=== PATIENT | male | born 1945 | race Caucasian/White ===

== ENCOUNTER → 2019-04-10 00:01 | Outpatient (RCR) | payer OTHER, SELFPAY | LOC: WOUND 03-12 07:55 | PROVIDERS: Family Provider Internal Medicine; Visit Provider Thoracic Surgery (Cardiothoracic Vascular Surgery) | DX: E11.621 Type 2 diabetes mellitus with foot ulcer (principal); L97.522 Non-pressure chronic ulcer of other part of left foot with fat layer exposed; I96 Gangrene, not elsewhere classified | CPT/HCPCS: 11042 ×4; G0277 ×12; L3260 ==

== ENCOUNTER 2019-05-08 08:03 | Outpatient (RCR) | payer OTHER, SELFPAY | END 2019-05-11 23:59 | disposition home or self-care (01) | LOC: WOUND 08:03 | PROVIDERS: Family Provider Internal Medicine; PCP Internal Medicine; Visit Provider Thoracic Surgery (Cardiothoracic Vascular Surgery) | DX: E11.621 Type 2 diabetes mellitus with foot ulcer (principal); L97.522 Non-pressure chronic ulcer of other part of left foot with fat layer exposed; I96 Gangrene, not elsewhere classified | CPT/HCPCS: 11042 ==

== ENCOUNTER 2019-06-05 08:20 | Outpatient (RCR) | payer OTHER, SELFPAY | END 2019-06-09 23:59 | disposition home or self-care (01) | LOC: WOUND 08:20 | PROVIDERS: Family Provider Internal Medicine; PCP Internal Medicine; Visit Provider Thoracic Surgery (Cardiothoracic Vascular Surgery) | DX: E11.621 Type 2 diabetes mellitus with foot ulcer (principal); L97.522 Non-pressure chronic ulcer of other part of left foot with fat layer exposed | CPT/HCPCS: 11042; G0463; L3260 ==

== ENCOUNTER 2019-07-10 08:39 | Outpatient (RCR) | payer OTHER, SELFPAY | END 2019-07-10 23:59 | disposition home or self-care (01) | LOC: WOUND 08:39 | PROVIDERS: Family Provider Internal Medicine; PCP Internal Medicine; Visit Provider Thoracic Surgery (Cardiothoracic Vascular Surgery) | DX: E11.621 Type 2 diabetes mellitus with foot ulcer (principal); L97.522 Non-pressure chronic ulcer of other part of left foot with fat layer exposed | CPT/HCPCS: 11042; 11055; 97597; A6446; L3260; L4387 ==

== ENCOUNTER 2019-07-31 08:26 | Outpatient (RCR) | payer OTHER, SELFPAY | END 2019-08-09 23:59 | disposition home or self-care (01) | LOC: WOUND 08:26 | PROVIDERS: Family Provider Internal Medicine; PCP Internal Medicine; Visit Provider Thoracic Surgery (Cardiothoracic Vascular Surgery) | DX: E11.621 Type 2 diabetes mellitus with foot ulcer (principal); L97.522 Non-pressure chronic ulcer of other part of left foot with fat layer exposed | CPT/HCPCS: 99212 ==

== ENCOUNTER 2019-08-14 08:38 | Outpatient (CLI) | payer OTHER, SELFPAY | END 2019-08-14 08:39 | disposition home or self-care (01) | LOC: WOUND 08:38 | PROVIDERS: Family Provider Internal Medicine; PCP Internal Medicine; Visit Provider Thoracic Surgery (Cardiothoracic Vascular Surgery) | DX: Z09 Encounter for follow-up examination after completed treatment for conditions other than malignant neoplasm (principal) | CPT/HCPCS: 99212 ==

== ENCOUNTER 2019-08-29 07:55 | Outpatient (CLI) | payer OTHER, SELFPAY | END 2019-08-29 07:56 | disposition home or self-care (01) | LOC: WOUND 07:55 | PROVIDERS: Family Provider Internal Medicine; PCP Internal Medicine; Visit Provider Thoracic Surgery (Cardiothoracic Vascular Surgery) | DX: E11.622 Type 2 diabetes mellitus with other skin ulcer (principal); L97.822 Non-pressure chronic ulcer of other part of left lower leg with fat layer exposed | CPT/HCPCS: 11042; 11045 ==

== ENCOUNTER 2019-09-05 08:25 | Outpatient (CLI) | payer OTHER, SELFPAY | END 2019-09-05 08:26 | disposition home or self-care (01) | LOC: WOUND 08:26 | PROVIDERS: Family Provider Internal Medicine; PCP Internal Medicine; Visit Provider Surgery | DX: E11.622 Type 2 diabetes mellitus with other skin ulcer (principal); L97.822 Non-pressure chronic ulcer of other part of left lower leg with fat layer exposed | CPT/HCPCS: 11042 ==

== ENCOUNTER 2019-09-06 07:47 | Outpatient (CLI) | payer OTHER, SELFPAY ==
--- NOTE | 2019-09-06 07:59 | CT_ITS ---
WS: [id number] CTA ABDOMINAL AORTA WITH RUNOFF TECHNIQUE: Contrast enhanced CTA of the abdominal aorta with bilateral lower extremity runoff. Multip lanar reformatted images were obtained. MIP reformats were also reviewed. CLINICAL INFORMATION: PERIPHERAL ARETERIAL DISEASE NON HEALING ULCER COMPARISON: CTA 10/13 2018 DLP: 1730.[address] scans at [facility] use at least one of these dose optimization techniques: automat ed exposure control; mA and/or kV adjustment per patient size (includes targeted exams where dose is matched to clinical indication); or iterative reconstruction. FINDINGS: RIGHT: Right common iliac artery is patent. Right internal and external iliac arteries are patent wit h mild atheromatous disease. Right common femoral artery and superficial femoral artery are patent. D eep femoral artery is patent. Trifurcation is patent. Calcified three-vessel segmental runoff to the ankle. LEFT: Left common iliac artery is patent. External and internal iliac arteries are patent. Common fem oral and superficial femoral arteries are patent. Deep femoral artery is patent. Popliteal artery is patent to the trifurcation. Densely calcified diminutive lower leg runoff with poor flow to the ankle . This is essentially unchanged in appearance since October 13, 2018. Hepatomegaly with Mild diffuse fatty infiltration the liver. Low-attenuation lesion left kidney likel y cysts the largest measuring 2.8 cm. Celiac and SMA are patent. DASH is patent. Renal artery origins are patent with accessory right renal artery. Cholelithiasis. Grade 1 anterolisthesis with spondyloly sis L5-S1. Sigmoid diverticulosis. No evidence of acute diverticulitis. Mild aortic atheromatous dise ase. No aneurysm. Cardiomegaly with right atrial enlargement. Coronary calcification. Small esophageal hiatal hernia. L annel bases are well aerated. Adrenal glands are normal. Screw fixation left hip. Shotty periotic lymph nodes unchanged. CT/CT angio abd aorta runof 41650 IMPRESSION: 1. Heavily calcified diminutive lower leg arteries with poor intermittent thre e-vessel runoff to the ankles. This is worse on the left and not significantly changed since 2018. 2. Mild aortic atheromatous disease without aneurysm. 3. Mesenteric and proximal renal arteries are patent. 4. Cholelithiasis. 5. Stable grade 1 anterolisthesis L5 on S1 with spondylolysis.
[2019-09-06 08:23] LABS: Blood Urea Nitrogen 20 mg/dL (8-23)
[2019-09-06] MEDS: iodixanol 320 mg/mL 100mL Btl IV (08:41)
== END 2019-09-06 07:48 | disposition home or self-care (01) ==
LOC: RADWPI 07:49
PROVIDERS: Family Provider Internal Medicine; PCP Internal Medicine; Visit Provider Thoracic Surgery (Cardiothoracic Vascular Surgery)
DX: I73.9 Peripheral vascular disease, unspecified (principal); L98.499 Non-pressure chronic ulcer of skin of other sites with unspecified severity; I70.0 Atherosclerosis of aorta; K80.20 Calculus of gallbladder without cholecystitis without obstruction; M47.817 Spondylosis without myelopathy or radiculopathy, lumbosacral region
CPT/HCPCS: 75635; 82565; 84520; Q9967

== ENCOUNTER 2019-09-07 09:20 | Outpatient (CLI) | payer OTHER, SELFPAY ==
--- NOTE | 2019-09-07 | USCV_ITS ---
Refugio Amanda Age: 73 Gender: M : 1945 Exam Date: 09/07/2019 09:42 Ordering Phys: Brennon Martinez MD (Andy) ([email or web address]) Technologist: Arleth Bloes [place] [facility] [place]: HISTORY: NON HEALING ULCER PROCEDURES: Bilateral duplex Venous Insufficiency study of the Deep and Superficial systems was carried out according to normal protocol with the patient in supine positon for deep system and dependent position for the superficial system. FINDINGS: There is no evidence of bilateral deep vein thrombosis. No evidence of superficial thrombosis in the bilateral saphenous system. No evidence of reflux was noted in the RIGHT deep venous system. Reflux is demonstrated in the deep venous system at the level of the LEFT Popliteal. Venous reflux is demonstrated in the RIGHT greater saphenous vein with a spectral Doppler display of greater than 500 milliseconds at the proximal level. Venous reflux was demonstrated in the RIGHT SPJ/thigh extension vein with a spectral display of greater than 500 milliseconds. Venous reflux is demonstrated in the LEFT greater saphenous vein with a spectral Doppler display of greater than 500 milliseconds at the proximal level. No venous reflux noted in the bilateral small saphenous vein. CONCLUSIONS 1. No evidence of any deep vein thrombosis in the above-mentioned identifiable veins. 2. On the right side, no significant venous reflux in the deep veins. There is significant venous reflux of greater than 500 ms in the greater saphenous vein, distal to the saphenofemoral junction and at the proximal segment. The proximal segment was greater than 1 cm deep from the surface. 3. On the left side, significant venous reflux of greater than 1000 ms was noted in the popliteal vein. Significant venous reflux of greater than 500 ms was noted at the proximal, distal and below-knee greater saphenous vein segments. The venous segments were greater than 1 cm deep from the surface. 4. The venous dimensions, depth from the surface and reflux times are as mentioned above. Dr Luc Roque MD [facility] (Electronically Signed) Final Date: 07 Sep 2019 11:49 S
== END 2019-09-07 09:21 | disposition home or self-care (01) ==
LOC: RAD 09:22
PROVIDERS: Visit Provider Thoracic Surgery (Cardiothoracic Vascular Surgery)
DX: M79.604 Pain in right leg (principal); M79.605 Pain in left leg; L97.929 Non-pressure chronic ulcer of unspecified part of left lower leg with unspecified severity; L97.919 Non-pressure chronic ulcer of unspecified part of right lower leg with unspecified severity
CPT/HCPCS: 93970

== ENCOUNTER 2019-09-12 08:11 | Outpatient (CLI) | payer OTHER, SELFPAY | END 2019-09-12 08:12 | disposition home or self-care (01) | LOC: WOUND 08:12 | PROVIDERS: Visit Provider Thoracic Surgery (Cardiothoracic Vascular Surgery) | DX: E11.622 Type 2 diabetes mellitus with other skin ulcer (principal); L97.822 Non-pressure chronic ulcer of other part of left lower leg with fat layer exposed; E11.621 Type 2 diabetes mellitus with foot ulcer; L97.422 Non-pressure chronic ulcer of left heel and midfoot with fat layer exposed | CPT/HCPCS: 11042; 11043 ==

== ENCOUNTER 2019-09-19 08:15 | Outpatient (CLI) | payer OTHER, SELFPAY | END 2019-09-19 08:16 | disposition home or self-care (01) | LOC: WOUND 08:16 | PROVIDERS: Visit Provider Thoracic Surgery (Cardiothoracic Vascular Surgery) | DX: E11.622 Type 2 diabetes mellitus with other skin ulcer (principal); L97.822 Non-pressure chronic ulcer of other part of left lower leg with fat layer exposed; E11.621 Type 2 diabetes mellitus with foot ulcer; L97.522 Non-pressure chronic ulcer of other part of left foot with fat layer exposed | CPT/HCPCS: 11042 ==

== ENCOUNTER → 2019-09-24 11:32 | Day surgery (SDC) | payer OTHER, SELFPAY ==
[2019-09-21 11:15] VITALS: BMI 35.1
[2019-09-24 12:07] VITALS: BP 135/77; PULSE 53; RESP 15; TEMP 36.7; O2SAT 95; BMI 35.1
[2019-09-24] MEDS: diazePAM 5 mg Tablet 10 MG PO (13:00)
[2019-09-24 14:16] VITALS: BP 125/66; PULSE 44; RESP 14; TEMP 37; O2SAT 97
[2019-09-24] MEDS: lidocaine 1% INJ 20 mL INTRADERMA (14:20)
[2019-09-24] MEDS: sodium chloride 0.9% 250 ML IV (14:21)
--- NOTE | 2019-09-24 14:54 | P.OP_ITS ---
Operative Report Date of procedure: September 24, 2019 Pre-op Diagnosis: Chronic venous ulcer left lower extremity with documented severe reflux of the left greater saphenous vein Post-op diagnosis: same Procedure Done: Radiofrequency catheter ablation of the left greater saphenous vein Pathology: none sent Surgeon: Brennon Martinez Anesthesia: Local (1% lidocaine; lidocaine tumescence) Complications: None Condition: stable Disposition: other (Discharge to home) Brief History: Mr. Amanda is a 73-year-old gentleman followed by [facility] [place] with an ulceration of his left lower extremity. He is not have a combination of arterial and venous disease and is undergone prior interventions to maximize his arterial inflow. He does have documented severe venous reflux of greater than 500 ms of the left greater saphenous vein. Catheter ablation of the left greater saphenous vein has been recommended to assist with other maneuvers in healing his left lower extremity wound. Rationale for this was carefully and frankly discussed. Details of risk the procedure have been reviewed. Proper consents have been reviewed and signed. Procedure: The insufficient left greater saphenous vein was verified by ultrasound and diagrammed on the overlying skin. The varicose tributary veins and suitable access sites were identified and mapped. The affected left lower extremity was prepped and draped in the usual sterile fashion. Mr. Amanda was placed in reverse Trendelenburg position. Tumescent was instilled in the skin overlying the access site for local anesthesia. The vein was accessed in the mid leg region using ultrasound guidance and the Seldinger technique, a guidewire was introduced through the needle, which was then exchanged over the guidewire for a 7F sheath. The RF catheter was placed on the sterile field, flushed and wiped down, prepared, and connected by a sterile cable. He was placed in Trendelenburg position. After RF catheter position was verified by ultrasound, tumescent anesthesia was infiltrated, under ultrasound guidance, precisely into the perivenous compartment along the entire length of vein. After the RF catheter position was again confirmed with ultrasound imaging, and under direct external compression along the length of the heating element, RF energy was applied. The vein was segmentally ablated until the treatment length is completed. Device temperature was maintained at 120 +/- degrees C with an initial power level of 40W dropping to below 20W for each treatment. Total vein length treated 46 cm. Total cycles of RF 16. Time 5 minutes and 20 seconds. Repeat ultrasound of the left greater saphenous vein was performed, confirming successful treatment. The catheter and sheath were withdrawn and hemostasis es tablished with direct pressure. After assuring hemostasis, the skin incision over the saphenous vein was closed with a bandage and graduated compression stocking was applied from the level of the foot to the most proximal length of the thigh. Mr. Amanda will follow-up with wound care services in 2 days. Follow-up post procedure ultrasound is scheduled for September 30 at 12:30 PM
--- NOTE | 2019-09-25 15:36 | W.PM.OPSUD ---
Surgery/Procedure H&P Update DATE OF PROCEDURE: September 24, 2019 DATE H&P PERFORMED: 09/12/19 H&P UPDATE INFORMATION: I have reviewed H&P completed within last 30 days, I have examined patient prior to procedure and No changes to prior documentation PREOP DIAGNOSIS: Chronic venous ulcer left lower extremity with documented severe reflux of the left greater saphenous vein PRIMARY INDICATION FOR PROCEDURE: Left lower extremity venous ulceration PLANNED PROCEDURE: Operation Date: 09/24/19 13:22 Proposed Procedures p Venous Ablations(Not Applicable) - rBennon Martinez MD
== END | disposition home or self-care (01) ==
PROVIDERS: Visit Provider Thoracic Surgery (Cardiothoracic Vascular Surgery)
PROC: (CPT 36475; principal; 2019-09-24 12:30)
DX: I87.2 Venous insufficiency (chronic) (peripheral) (principal); I48.91 Unspecified atrial fibrillation; I11.0 Hypertensive heart disease with heart failure; I50.9 Heart failure, unspecified; E11.9 Type 2 diabetes mellitus without complications; Z79.84 Long term (current) use of oral hypoglycemic drugs; G47.30 Sleep apnea, unspecified
CPT/HCPCS: 36475; 12345; C1769; C1888; C1894; J2001; J7040; J7050

== ENCOUNTER 2019-09-26 08:08 | Outpatient (CLI) | payer OTHER, SELFPAY | END 2019-09-26 08:09 | disposition home or self-care (01) | LOC: WOUND 08:11 | PROVIDERS: Visit Provider Thoracic Surgery (Cardiothoracic Vascular Surgery) | DX: I87.2 Venous insufficiency (chronic) (peripheral) (principal); L97.822 Non-pressure chronic ulcer of other part of left lower leg with fat layer exposed; E11.621 Type 2 diabetes mellitus with foot ulcer; L97.522 Non-pressure chronic ulcer of other part of left foot with fat layer exposed | CPT/HCPCS: 11042; 11045 ==

== ENCOUNTER 2019-09-28 14:57 | Outpatient (CLI) | payer OTHER, SELFPAY | END 2019-09-28 14:58 | disposition home or self-care (01) | LOC: WOUND 14:59 | PROVIDERS: Visit Provider Surgery | DX: Z51.89 Encounter for other specified aftercare (principal) | CPT/HCPCS: 29581 ==

== ENCOUNTER 2019-10-01 12:13 | Outpatient (CLI) | payer OTHER, SELFPAY ==
--- NOTE | 2019-10-01 12:20 | USCV_ITS ---
Refugio Amanda Age: 73 Gender: M : 1945 Exam Date: 10/01/2019 13:02 Ordering Phys: Brennon Martinez MD (Andy) ([email or web address]) Technologist: Radha Álvarez [place] [facility] [place]: POST ABLATION HISTORY: Post ablation PROCEDURES: Venous duplex imaging was performed in only the left lower extremity. The following venous structures were evaluated: common femoral vein, profunda vein, proximal portion of the greater saphenous vein, superficial femoral vein, and the popliteal vein. In addition, the posterior tibial and peroneal trunk were evaluated. FINDINGS: No evidence of DVT seen in any vessel visualized at this time. Left GSV appears to be ablated CONCLUSIONS No evidence of DVT in the above-mentioned identifiable veins. Patent saphenofemoral junction . The greater saphenous vein appears to be ablated Dr Luc Roque MD [facility] (Electronically Signed) Final Date: 02 October 2019 09:26 S
== END 2019-10-01 12:14 | disposition home or self-care (01) ==
LOC: US 12:14
PROVIDERS: Visit Provider Thoracic Surgery (Cardiothoracic Vascular Surgery)
DX: M79.89 Other specified soft tissue disorders (principal)
CPT/HCPCS: 93971

== ENCOUNTER 2019-10-01 14:48 | Outpatient (CLI) | payer OTHER, SELFPAY | END 2019-10-01 14:49 | disposition home or self-care (01) | LOC: WOUND 15:00 | PROVIDERS: Visit Provider Nurse Practitioner Family | DX: Z51.89 Encounter for other specified aftercare (principal) | CPT/HCPCS: 29581 ==

== ENCOUNTER 2019-10-03 08:11 | Outpatient (CLI) | payer OTHER, SELFPAY | END 2019-10-03 08:12 | disposition home or self-care (01) | LOC: WOUND 08:12 | PROVIDERS: Visit Provider Thoracic Surgery (Cardiothoracic Vascular Surgery) | DX: I87.2 Venous insufficiency (chronic) (peripheral) (principal); L97.822 Non-pressure chronic ulcer of other part of left lower leg with fat layer exposed; E11.621 Type 2 diabetes mellitus with foot ulcer; L97.522 Non-pressure chronic ulcer of other part of left foot with fat layer exposed | CPT/HCPCS: 11042; 11045; L3260 ==

== ENCOUNTER 2019-10-05 15:09 | Outpatient (CLI) | payer OTHER, SELFPAY | END 2019-10-05 15:10 | disposition home or self-care (01) | LOC: WOUND 15:11 | PROVIDERS: Visit Provider Surgery | DX: E11.622 Type 2 diabetes mellitus with other skin ulcer (principal); L97.822 Non-pressure chronic ulcer of other part of left lower leg with fat layer exposed; E11.621 Type 2 diabetes mellitus with foot ulcer; L97.429 Non-pressure chronic ulcer of left heel and midfoot with unspecified severity | CPT/HCPCS: 29581 ==

== ENCOUNTER 2019-10-08 08:00 | Outpatient (CLI) | payer OTHER, SELFPAY | END 2019-10-08 08:01 | disposition home or self-care (01) | LOC: WOUND 08:01 | PROVIDERS: Visit Provider Nurse Practitioner Family | DX: E11.622 Type 2 diabetes mellitus with other skin ulcer (principal); L97.822 Non-pressure chronic ulcer of other part of left lower leg with fat layer exposed; E11.621 Type 2 diabetes mellitus with foot ulcer; L97.429 Non-pressure chronic ulcer of left heel and midfoot with unspecified severity | CPT/HCPCS: 29581; G0463 ==

== ENCOUNTER 2019-10-10 08:41 | Outpatient (CLI) | payer OTHER, SELFPAY | END 2019-10-10 08:42 | disposition home or self-care (01) | LOC: WOUND 08:42 | PROVIDERS: Visit Provider Thoracic Surgery (Cardiothoracic Vascular Surgery) | DX: L97.822 Non-pressure chronic ulcer of other part of left lower leg with fat layer exposed; E11.621 Type 2 diabetes mellitus with foot ulcer; L97.429 Non-pressure chronic ulcer of left heel and midfoot with unspecified severity; E11.622 Type 2 diabetes mellitus with other skin ulcer | CPT/HCPCS: 11042; 11045 ==

== ENCOUNTER 2019-10-15 08:25 | Outpatient (CLI) | payer OTHER, SELFPAY | END 2019-10-15 08:26 | disposition home or self-care (01) | LOC: WOUND 08:26 | PROVIDERS: Visit Provider Surgery | DX: Z51.89 Encounter for other specified aftercare (principal) | CPT/HCPCS: 29581 ==

== ENCOUNTER 2019-10-17 08:26 | Outpatient (CLI) | payer OTHER, SELFPAY | END 2019-10-17 08:27 | disposition home or self-care (01) | LOC: WOUND 08:26 | PROVIDERS: Visit Provider Thoracic Surgery (Cardiothoracic Vascular Surgery) | DX: E11.622 Type 2 diabetes mellitus with other skin ulcer (principal); L97.822 Non-pressure chronic ulcer of other part of left lower leg with fat layer exposed; E11.621 Type 2 diabetes mellitus with foot ulcer; L97.422 Non-pressure chronic ulcer of left heel and midfoot with fat layer exposed | CPT/HCPCS: 11042; 11045 ==

== ENCOUNTER 2019-10-23 09:10 | Outpatient (CLI) | payer OTHER, SELFPAY | END 2019-10-23 09:11 | disposition home or self-care (01) | LOC: WOUND 09:11 | PROVIDERS: Visit Provider Thoracic Surgery (Cardiothoracic Vascular Surgery) | DX: E11.622 Type 2 diabetes mellitus with other skin ulcer (principal); L97.822 Non-pressure chronic ulcer of other part of left lower leg with fat layer exposed; E11.621 Type 2 diabetes mellitus with foot ulcer; L97.422 Non-pressure chronic ulcer of left heel and midfoot with fat layer exposed | CPT/HCPCS: 11042 ==

== ENCOUNTER 2019-10-30 09:18 | Outpatient (CLI) | payer OTHER, SELFPAY | END 2019-10-30 09:19 | disposition home or self-care (01) | LOC: WOUND 09:19 | PROVIDERS: Visit Provider Thoracic Surgery (Cardiothoracic Vascular Surgery) | DX: E11.622 Type 2 diabetes mellitus with other skin ulcer (principal); L97.522 Non-pressure chronic ulcer of other part of left foot with fat layer exposed; E11.621 Type 2 diabetes mellitus with foot ulcer; L97.422 Non-pressure chronic ulcer of left heel and midfoot with fat layer exposed | CPT/HCPCS: 11042 ==

== ENCOUNTER 2019-11-06 09:05 | Outpatient (CLI) | payer OTHER, SELFPAY | END 2019-11-06 09:06 | disposition home or self-care (01) | LOC: WOUND 09:09 | PROVIDERS: Visit Provider Thoracic Surgery (Cardiothoracic Vascular Surgery) | DX: E11.622 Type 2 diabetes mellitus with other skin ulcer (principal); L97.822 Non-pressure chronic ulcer of other part of left lower leg with fat layer exposed; E11.621 Type 2 diabetes mellitus with foot ulcer; L97.422 Non-pressure chronic ulcer of left heel and midfoot with fat layer exposed | CPT/HCPCS: 11042 ==

== ENCOUNTER → 2019-11-08 08:46 | Outpatient (BNVA) | payer OTHER, SELFPAY | PROVIDERS: Referring Provider Family Medicine; Visit Provider Anesthesiology Pain Medicine | DX: M25.511 Pain in right shoulder (principal); M19.021 Primary osteoarthritis, right elbow; M25.551 Pain in right hip; M79.605 Pain in left leg; G62.9 Polyneuropathy, unspecified; M25.9 Joint disorder, unspecified; I48.20 Chronic atrial fibrillation, unspecified; I87.2 Venous insufficiency (chronic) (peripheral); M19.90 Unspecified osteoarthritis, unspecified site; Z79.891 Long term (current) use of opiate analgesic | CPT/HCPCS: 99204 ==

== ENCOUNTER → 2019-11-12 14:52 | Outpatient (BNVA) | payer OTHER, SELFPAY | PROVIDERS: PCP Family Medicine; Visit Provider Anesthesiology Pain Medicine | DX: M25.551 Pain in right hip (principal); M16.9 Osteoarthritis of hip, unspecified | CPT/HCPCS: 20610; 77002; 77003; J1030; J3490 ==

== ENCOUNTER 2019-11-13 08:59 | Outpatient (CLI) | payer OTHER, SELFPAY | END 2019-11-13 09:00 | disposition home or self-care (01) | LOC: WOUND 09:05 | PROVIDERS: PCP Family Medicine; Visit Provider Thoracic Surgery (Cardiothoracic Vascular Surgery) | DX: E11.622 Type 2 diabetes mellitus with other skin ulcer (principal); L97.822 Non-pressure chronic ulcer of other part of left lower leg with fat layer exposed; E11.621 Type 2 diabetes mellitus with foot ulcer; L97.422 Non-pressure chronic ulcer of left heel and midfoot with fat layer exposed | CPT/HCPCS: 11042 ==

== ENCOUNTER 2019-11-20 09:25 | Outpatient (CLI) | payer OTHER, SELFPAY | END 2019-11-20 09:26 | disposition home or self-care (01) | LOC: WOUND 09:26 | PROVIDERS: PCP Family Medicine; Visit Provider Emergency Medicine | DX: E11.622 Type 2 diabetes mellitus with other skin ulcer (principal); L97.822 Non-pressure chronic ulcer of other part of left lower leg with fat layer exposed; E11.621 Type 2 diabetes mellitus with foot ulcer; L97.521 Non-pressure chronic ulcer of other part of left foot limited to breakdown of skin | CPT/HCPCS: 11042 ==

== ENCOUNTER → 2019-11-29 09:32 | Outpatient (BNVA) | payer OTHER, SELFPAY | PROVIDERS: PCP Family Medicine; Visit Provider Anesthesiology Pain Medicine | DX: M25.9 Joint disorder, unspecified (principal); M19.90 Unspecified osteoarthritis, unspecified site; M19.021 Primary osteoarthritis, right elbow; M25.551 Pain in right hip; M25.511 Pain in right shoulder; M79.605 Pain in left leg; G62.9 Polyneuropathy, unspecified; I48.20 Chronic atrial fibrillation, unspecified; I87.2 Venous insufficiency (chronic) (peripheral); Z79.891 Long term (current) use of opiate analgesic | CPT/HCPCS: 99214 ==

== ENCOUNTER 2019-12-04 09:13 | Outpatient (CLI) | payer OTHER, SELFPAY | END 2019-12-04 09:14 | disposition home or self-care (01) | LOC: WOUND 09:15 | PROVIDERS: PCP Family Medicine; Visit Provider Thoracic Surgery (Cardiothoracic Vascular Surgery) | DX: Z09 Encounter for follow-up examination after completed treatment for conditions other than malignant neoplasm (principal) | CPT/HCPCS: 99212 ==

== ENCOUNTER → 2019-12-05 13:36 | Outpatient (BNVA) | payer OTHER, SELFPAY | PROVIDERS: PCP Family Medicine; Visit Provider Anesthesiology Pain Medicine | DX: M70.71 Other bursitis of hip, right hip (principal); Y93.9 Activity, unspecified | CPT/HCPCS: 20610; 77002; 77003; J1030; J3490 ==

== ENCOUNTER 2019-12-11 08:59 | Outpatient (CLI) | payer OTHER, SELFPAY | END 2019-12-11 09:00 | disposition home or self-care (01) | LOC: WOUND 09:00 | PROVIDERS: PCP Family Medicine; Visit Provider Thoracic Surgery (Cardiothoracic Vascular Surgery) | DX: E11.621 Type 2 diabetes mellitus with foot ulcer (principal); L97.522 Non-pressure chronic ulcer of other part of left foot with fat layer exposed | CPT/HCPCS: 11042; A6545 ==

== ENCOUNTER 2019-12-14 13:01 | Outpatient (CLI) | payer OTHER, SELFPAY ==
--- NOTE | 2019-12-14 13:06 | XR_ITS ---
WS: [id number] TOE LEFT TECHNIQUE: 3 views of the left First toe CLINICAL INFORMATION: PAIN REDNESS NONHEALING ULCER, R/O OSTEOMYELITIS COMPARISON: FINDINGS: Soft tissue edema first digit. Vascular calcification. Slight irregularity distal phalanx great toe s uspicious for osteomyelitis progressed since 2019. No other significant findings. XR/XR toe LT min 2V [id number] IMPRESSION: 1. Irregularity with slight osteolysis first distal phalanx suspicious for ost eomyelitis. This is progressed slightly since 2019 2. Soft tissue edema.
== END 2019-12-14 13:02 | disposition home or self-care (01) ==
LOC: RADWPI 13:05
PROVIDERS: Family Provider Family Medicine; PCP Family Medicine; Visit Provider Thoracic Surgery (Cardiothoracic Vascular Surgery)
DX: M79.675 Pain in left toe(s) (principal); L53.9 Erythematous condition, unspecified; R60.0 Localized edema; L97.529 Non-pressure chronic ulcer of other part of left foot with unspecified severity
CPT/HCPCS: 73660

== ENCOUNTER 2019-12-18 09:13 | Outpatient (CLI) | payer OTHER, SELFPAY | END 2019-12-18 09:14 | disposition home or self-care (01) | PROVIDERS: Family Provider Family Medicine; PCP Family Medicine; Visit Provider Thoracic Surgery (Cardiothoracic Vascular Surgery) | DX: E11.621 Type 2 diabetes mellitus with foot ulcer (principal); L97.522 Non-pressure chronic ulcer of other part of left foot with fat layer exposed; G89.29 Other chronic pain; M19.011 Primary osteoarthritis, right shoulder; M25.9 Joint disorder, unspecified; M25.551 Pain in right hip; M19.072 Primary osteoarthritis, left ankle and foot; M19.021 Primary osteoarthritis, right elbow; G62.9 Polyneuropathy, unspecified; Z79.891 Long term (current) use of opiate analgesic | CPT/HCPCS: 11042; 20605; 99213; 99214; J1030; J3490 ==

== ENCOUNTER 2019-12-25 08:38 | Outpatient (CLI) | payer OTHER, SELFPAY | END 2019-12-25 08:39 | disposition home or self-care (01) | LOC: WOUND 08:39 | PROVIDERS: Family Provider Family Medicine; PCP Family Medicine; Visit Provider Thoracic Surgery (Cardiothoracic Vascular Surgery) | DX: E11.621 Type 2 diabetes mellitus with foot ulcer (principal); L97.522 Non-pressure chronic ulcer of other part of left foot with fat layer exposed | CPT/HCPCS: 11042; G0463 ==

== ENCOUNTER 2020-01-01 11:07 | Outpatient (CLI) | payer OTHER, SELFPAY | END 2020-01-01 11:08 | disposition home or self-care (01) | LOC: WOUND 11:08 | PROVIDERS: Family Provider Family Medicine; PCP Family Medicine; Visit Provider Thoracic Surgery (Cardiothoracic Vascular Surgery) | DX: E11.621 Type 2 diabetes mellitus with foot ulcer (principal); L97.522 Non-pressure chronic ulcer of other part of left foot with fat layer exposed | CPT/HCPCS: 11042 ==

== ENCOUNTER 2020-01-08 09:57 | Outpatient (CLI) | payer OTHER, SELFPAY | END 2020-01-08 09:58 | disposition home or self-care (01) | LOC: WOUND 09:58 | PROVIDERS: Family Provider Family Medicine; PCP Family Medicine; Visit Provider Thoracic Surgery (Cardiothoracic Vascular Surgery) | DX: E11.621 Type 2 diabetes mellitus with foot ulcer (principal); L97.522 Non-pressure chronic ulcer of other part of left foot with fat layer exposed | CPT/HCPCS: 11042 ==

== ENCOUNTER 2020-01-29 09:43 | Outpatient (CLI) | payer OTHER, SELFPAY | END 2020-01-29 09:44 | disposition home or self-care (01) | LOC: WOUND 09:44 | PROVIDERS: Family Provider Family Medicine; PCP Family Medicine; Visit Provider Thoracic Surgery (Cardiothoracic Vascular Surgery) | DX: E11.621 Type 2 diabetes mellitus with foot ulcer (principal); L97.522 Non-pressure chronic ulcer of other part of left foot with fat layer exposed | CPT/HCPCS: 11042; L3260 ==

== ENCOUNTER 2020-02-05 09:46 | Outpatient (CLI) | payer OTHER, SELFPAY | END 2020-02-05 09:47 | disposition home or self-care (01) | LOC: WOUND 09:47 | PROVIDERS: Family Provider Family Medicine; PCP Family Medicine; Visit Provider Thoracic Surgery (Cardiothoracic Vascular Surgery) | DX: E11.621 Type 2 diabetes mellitus with foot ulcer (principal); L97.522 Non-pressure chronic ulcer of other part of left foot with fat layer exposed | CPT/HCPCS: 11042 ==

== ENCOUNTER → 2020-02-12 09:58 | Outpatient (BNVA) | payer OTHER, SELFPAY | PROVIDERS: Family Provider Family Medicine; PCP Family Medicine; Visit Provider Anesthesiology Pain Medicine | DX: G62.9 Polyneuropathy, unspecified (principal); M19.021 Primary osteoarthritis, right elbow; M25.9 Joint disorder, unspecified; M25.551 Pain in right hip; I48.20 Chronic atrial fibrillation, unspecified; I87.2 Venous insufficiency (chronic) (peripheral); M19.011 Primary osteoarthritis, right shoulder; M25.511 Pain in right shoulder; M25.512 Pain in left shoulder; Z79.891 Long term (current) use of opiate analgesic | CPT/HCPCS: 20605; 99213; J1030; J3490 ==

== ENCOUNTER 2020-02-13 08:18 | Outpatient (CLI) | payer OTHER, SELFPAY | END 2020-02-13 08:19 | disposition home or self-care (01) | LOC: WOUND 08:19 | PROVIDERS: Family Provider Family Medicine; PCP Family Medicine; Visit Provider Thoracic Surgery (Cardiothoracic Vascular Surgery) | DX: E11.621 Type 2 diabetes mellitus with foot ulcer (principal); L97.522 Non-pressure chronic ulcer of other part of left foot with fat layer exposed | CPT/HCPCS: 11042 ==

== ENCOUNTER 2020-03-04 08:06 | Outpatient (CLI) | payer OTHER, SELFPAY | END 2020-03-04 08:07 | disposition home or self-care (01) | LOC: WOUND 08:06 | PROVIDERS: Family Provider Family Medicine; PCP Family Medicine; Visit Provider Nurse Practitioner Family | DX: E11.621 Type 2 diabetes mellitus with foot ulcer (principal); L97.522 Non-pressure chronic ulcer of other part of left foot with fat layer exposed | CPT/HCPCS: 11042 ==

== ENCOUNTER 2020-03-11 09:06 | Outpatient (CLI) | payer OTHER, SELFPAY | END 2020-03-11 09:07 | disposition home or self-care (01) | LOC: WOUND 09:07 | PROVIDERS: Family Provider Family Medicine; PCP Family Medicine; Visit Provider Thoracic Surgery (Cardiothoracic Vascular Surgery) | DX: E11.621 Type 2 diabetes mellitus with foot ulcer (principal); L97.522 Non-pressure chronic ulcer of other part of left foot with fat layer exposed | CPT/HCPCS: 11042 ==

== ENCOUNTER 2020-03-17 10:23 | Outpatient (CLI) | payer OTHER, SELFPAY ==
--- NOTE | 2020-03-17 10:54 | XR_ITS ---
WS: [id number] CHEST 2 VIEWS HISTORY: screening for respiratory disorder COMPARISON: 01/22/2019 Lungs: Interstitial thickening and haziness over both lungs. No consolidation or pneumonia. Very shania lar in appearance to the prior study. Cardiac size: Mildly enlarged cardiac silhouette. Mediastinum/Aorta: Mild atherosclerosis aorta. Bones: Normal. XR/XR chest 2V* [id number] IMPRESSION: 1. Mild interstitial haziness may be due to fluid overload or mild pneumonitis . Similar to prior studies. 2. Mild cardiomegaly and partially calcified aorta.
[2020-03-17 12:43] LABS: Basophils # 0.1 10^3/uL (0.0-0.1); Basophils % 1.1 %; Eosinophils # 0.2 10^3/uL (0.0-0.8); Eosinophils % 3.3 %; Hematocrit 37.2 % (42.0-52.0); Hemoglobin 11.9 g/dL (11.7-16.6); Lymphocytes # 1.2 10^3/uL (0.8-4.8); Lymphocytes % 21.3 %; Mean Corpuscular Hemoglobin 28.7 pg (28.0-34.0); Mean Corpuscular Volume 89.9 fL (80-94); Mean Platelet Volume 10.2 fL (7.4-10.4); Monocytes # 0.5 10^3/uL (0.2-0.9); Monocytes % 8.6 %; Neutrophils # 3.72 10^3/uL (1.8-7.7); Neutrophils % 65.3 %; Nucleated Red Blood Cells % 0 %; Platelet Count 236 10^3/cmm (130-400); Red Blood Count 4.14 10^6/uL (4.1-5.3); White Blood Count 5.7 10^3/uL (4.0-10.0)
--- NOTE | 2020-03-17 13:18 | ECG_ITS ---
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 Measurements Intervals [place] Rate: 47 P: LA: QRS: 210 QRSD: 130 T: 71 QT: 459 QTc: 408 Interpretive Statements ATRIAL FIBRILLATION WITH SLOW VENTRICULAR RESPONSE POSSIBLE RIGHT VENTRICULAR HYPERTROPHY ANTEROLATERAL MYOCARDIAL INFARCTION, OF INDETERMINATE AGE Compared to ECG 01/24/2019 09:30:10 Atrial abnormality now present Myocardial infarct finding now present Intraventricular conduction delay no longer present Electronically Signed On 03-19-2020 6:48:44 GEOTHERMAL SYSTEM INSTALLER by Brittaney Lim M.D. [id number]
[2020-03-17 13:29] LABS: Alanine Aminotransferase 25 U/L (0-41); Albumin Level 3.8 g/dL (3.5-5.2); Alkaline Phosphatase 95 IU/L (40-130); Anion Gap 14.5 (5-19); Aspartate Amino Transferase 32 U/L (0-40); Blood Urea Nitrogen 16 mg/dL (8-23); Calcium 9.3 mg/dL (8.5-10.5); Carbon Dioxide 29 mmol/L (22-29); Chloride 97 mmol/L (98-107); Globulin 3.6 g/dL (1.3-4.6); Glucose 157 mg/dL (65-115); Osmolality Calculated 286 mOsm/kg (285-295); Potassium 4.5 mmol/L (3.5-5.1); Sodium 136 mmol/L (136-145); Total Bilirubin 0.7 mg/dL (0.15-1.2); Total Protein 7.4 g/dL (6.6-8.7)
[2020-03-17 14:21] LABS: Estmated Average Glucose 151; Hemoglobin A1C 6.9 % (4.0-6.0)
== END 2020-03-17 10:24 | disposition home or self-care (01) ==
PROVIDERS: PCP Family Medicine; Visit Provider Thoracic Surgery (Cardiothoracic Vascular Surgery)
DX: Z13.83 Encounter for screening for respiratory disorder NEC (principal); L97.509 Non-pressure chronic ulcer of other part of unspecified foot with unspecified severity; I51.7 Cardiomegaly; I70.0 Atherosclerosis of aorta; E11.621 Type 2 diabetes mellitus with foot ulcer; M86.60 Other chronic osteomyelitis, unspecified site
CPT/HCPCS: 71046; 80053; 83036; 84134; 85025; 93005

== ENCOUNTER 2020-03-18 08:45 | Outpatient (CLI) | payer OTHER, SELFPAY | END 2020-03-18 08:46 | disposition home or self-care (01) | LOC: WOUND 08:45 | PROVIDERS: PCP Family Medicine; Visit Provider Thoracic Surgery (Cardiothoracic Vascular Surgery) | DX: E11.621 Type 2 diabetes mellitus with foot ulcer (principal); L97.522 Non-pressure chronic ulcer of other part of left foot with fat layer exposed | CPT/HCPCS: 11042 ==

== ENCOUNTER 2020-03-19 07:56 | Outpatient (CLI) | payer OTHER, SELFPAY | END 2020-03-19 07:57 | disposition home or self-care (01) | LOC: WOUND 08:04 | PROVIDERS: PCP Family Medicine; Visit Provider Nurse Practitioner Family | DX: M86.672 Other chronic osteomyelitis, left ankle and foot (principal) | CPT/HCPCS: G0277 ==

== ENCOUNTER 2020-03-20 08:55 | Outpatient (CLI) | payer OTHER, SELFPAY | END 2020-03-20 08:56 | disposition home or self-care (01) | LOC: WOUND 08:56 | PROVIDERS: PCP Family Medicine; Visit Provider Nurse Practitioner Family | DX: M86.672 Other chronic osteomyelitis, left ankle and foot (principal) | CPT/HCPCS: G0277 ==

== ENCOUNTER 2020-03-24 07:55 | Outpatient (CLI) | payer OTHER, SELFPAY | END 2020-03-24 07:56 | disposition home or self-care (01) | LOC: WOUND 07:55 | PROVIDERS: PCP Family Medicine; Visit Provider Nurse Practitioner Family | DX: M86.672 Other chronic osteomyelitis, left ankle and foot (principal) | CPT/HCPCS: G0277 ==

== ENCOUNTER 2020-03-25 12:51 | Outpatient (CLI) | payer OTHER, SELFPAY | END 2020-03-25 12:52 | disposition home or self-care (01) | LOC: WOUND 12:53 | PROVIDERS: PCP Family Medicine; Visit Provider Thoracic Surgery (Cardiothoracic Vascular Surgery) | DX: E11.621 Type 2 diabetes mellitus with foot ulcer (principal); L97.522 Non-pressure chronic ulcer of other part of left foot with fat layer exposed; M86.672 Other chronic osteomyelitis, left ankle and foot | CPT/HCPCS: 11044; G0277 ==

== ENCOUNTER 2020-03-26 08:06 | Outpatient (CLI) | payer OTHER, SELFPAY | END 2020-03-26 08:07 | disposition home or self-care (01) | LOC: WOUND 08:07 | PROVIDERS: PCP Family Medicine; Visit Provider Thoracic Surgery (Cardiothoracic Vascular Surgery) | DX: M86.672 Other chronic osteomyelitis, left ankle and foot (principal) | CPT/HCPCS: G0277 ==

== ENCOUNTER 2020-03-27 09:20 | Outpatient (CLI) | payer OTHER, SELFPAY | END 2020-03-27 09:21 | disposition home or self-care (01) | LOC: WOUND 09:25 | PROVIDERS: PCP Family Medicine; Visit Provider Nurse Practitioner Family | DX: M86.672 Other chronic osteomyelitis, left ankle and foot (principal) | CPT/HCPCS: G0277 ==

== ENCOUNTER 2020-04-01 07:51 | Outpatient (CLI) | payer OTHER, SELFPAY | END 2020-04-01 07:52 | disposition home or self-care (01) | LOC: WOUND 07:52 | PROVIDERS: PCP Family Medicine; Visit Provider Nurse Practitioner Family | DX: E11.621 Type 2 diabetes mellitus with foot ulcer (principal); L97.526 Non-pressure chronic ulcer of other part of left foot with bone involvement without evidence of necrosis | CPT/HCPCS: 11042; G0277 ==

== ENCOUNTER 2020-04-02 08:01 | Outpatient (CLI) | payer OTHER, SELFPAY | END 2020-04-02 08:02 | disposition home or self-care (01) | LOC: WOUND 08:01 | PROVIDERS: PCP Family Medicine; Visit Provider Nurse Practitioner Family | DX: M86.672 Other chronic osteomyelitis, left ankle and foot (principal) | CPT/HCPCS: G0277 ==

== ENCOUNTER 2020-04-07 08:16 | Outpatient (CLI) | payer OTHER, SELFPAY | END 2020-04-07 08:17 | disposition home or self-care (01) | PROVIDERS: PCP Family Medicine; Visit Provider Nurse Practitioner Family | DX: M25.559 Pain in unspecified hip (principal); M25.9 Joint disorder, unspecified; M25.519 Pain in unspecified shoulder; I48.20 Chronic atrial fibrillation, unspecified; I87.2 Venous insufficiency (chronic) (peripheral); M19.90 Unspecified osteoarthritis, unspecified site; M19.021 Primary osteoarthritis, right elbow; G62.9 Polyneuropathy, unspecified | CPT/HCPCS: 99213; G0277 ==

== ENCOUNTER 2020-04-08 07:54 | Outpatient (CLI) | payer OTHER, SELFPAY | END 2020-04-08 07:55 | disposition home or self-care (01) | LOC: WOUND 07:55 | PROVIDERS: PCP Family Medicine; Visit Provider Nurse Practitioner Family | DX: E11.621 Type 2 diabetes mellitus with foot ulcer (principal); L97.521 Non-pressure chronic ulcer of other part of left foot limited to breakdown of skin; M86.672 Other chronic osteomyelitis, left ankle and foot | CPT/HCPCS: 11042; G0277 ==

== ENCOUNTER 2020-04-09 08:00 | Outpatient (CLI) | payer OTHER, SELFPAY | END 2020-04-09 08:01 | disposition home or self-care (01) | LOC: WOUND 08:00 | PROVIDERS: PCP Family Medicine; Visit Provider Nurse Practitioner Family | DX: M86.672 Other chronic osteomyelitis, left ankle and foot (principal) | CPT/HCPCS: G0277 ==

== ENCOUNTER 2020-04-10 07:43 | Outpatient (CLI) | payer OTHER, SELFPAY | END 2020-04-10 07:44 | disposition home or self-care (01) | LOC: WOUND 07:44 | PROVIDERS: PCP Family Medicine; Visit Provider Nurse Practitioner Family | DX: M86.672 Other chronic osteomyelitis, left ankle and foot (principal) | CPT/HCPCS: G0277 ==

== ENCOUNTER 2020-04-14 08:09 | Outpatient (CLI) | payer OTHER, SELFPAY | END 2020-04-14 08:10 | disposition home or self-care (01) | LOC: WOUND 08:10 | PROVIDERS: PCP Family Medicine; Visit Provider Nurse Practitioner Family | DX: M86.672 Other chronic osteomyelitis, left ankle and foot (principal) | CPT/HCPCS: G0277 ==

== ENCOUNTER 2020-04-15 08:22 | Outpatient (RCR) | payer OTHER, SELFPAY | END 2020-05-11 23:59 | disposition home or self-care (01) | LOC: WOUND 08:22 | PROVIDERS: PCP Family Medicine; Visit Provider Thoracic Surgery (Cardiothoracic Vascular Surgery) | DX: E11.621 Type 2 diabetes mellitus with foot ulcer (principal); L97.528 Non-pressure chronic ulcer of other part of left foot with other specified severity; M86.672 Other chronic osteomyelitis, left ankle and foot | CPT/HCPCS: 11042; G0277 ==

== ENCOUNTER 2020-04-16 07:48 | Outpatient (CLI) | payer OTHER, SELFPAY | END 2020-04-16 07:49 | disposition home or self-care (01) | LOC: WOUND 07:48 | PROVIDERS: PCP Family Medicine; Visit Provider Thoracic Surgery (Cardiothoracic Vascular Surgery) | DX: M86.672 Other chronic osteomyelitis, left ankle and foot (principal) | CPT/HCPCS: G0277 ==

== ENCOUNTER 2020-04-18 07:56 | Outpatient (CLI) | payer OTHER, SELFPAY | END 2020-04-18 07:57 | disposition home or self-care (01) | LOC: WOUND 07:57 | PROVIDERS: PCP Family Medicine; Visit Provider Surgery | DX: M86.672 Other chronic osteomyelitis, left ankle and foot (principal) | CPT/HCPCS: G0277 ==

== ENCOUNTER 2020-04-21 08:07 | Outpatient (CLI) | payer OTHER, SELFPAY | END 2020-04-21 08:08 | disposition home or self-care (01) | LOC: WOUND 08:08 | PROVIDERS: PCP Family Medicine; Visit Provider Nurse Practitioner Family | DX: M86.672 Other chronic osteomyelitis, left ankle and foot (principal) | CPT/HCPCS: G0277 ==

== ENCOUNTER 2020-04-22 08:08 | Outpatient (CLI) | payer OTHER, SELFPAY | END 2020-04-22 08:09 | disposition home or self-care (01) | LOC: WOUND 08:09 | PROVIDERS: PCP Family Medicine; Visit Provider Thoracic Surgery (Cardiothoracic Vascular Surgery) | DX: M86.672 Other chronic osteomyelitis, left ankle and foot | CPT/HCPCS: 99212; G0277 ==

== ENCOUNTER 2020-04-23 08:17 | Outpatient (CLI) | payer OTHER, SELFPAY | END 2020-04-23 08:18 | disposition home or self-care (01) | LOC: WOUND 08:17 | PROVIDERS: PCP Family Medicine; Visit Provider Thoracic Surgery (Cardiothoracic Vascular Surgery) | DX: M86.672 Other chronic osteomyelitis, left ankle and foot (principal) | CPT/HCPCS: G0277 ==

== ENCOUNTER 2020-04-24 08:10 | Outpatient (CLI) | payer OTHER, SELFPAY | END 2020-04-24 08:11 | disposition home or self-care (01) | LOC: WOUND 08:11 | PROVIDERS: PCP Family Medicine; Visit Provider Nurse Practitioner Family | DX: M86.672 Other chronic osteomyelitis, left ankle and foot (principal) | CPT/HCPCS: G0277 ==

== ENCOUNTER 2020-04-25 08:03 | Outpatient (CLI) | payer OTHER, SELFPAY | END 2020-04-25 08:04 | disposition home or self-care (01) | LOC: WOUND 08:04 | PROVIDERS: PCP Family Medicine; Visit Provider Surgery | DX: M86.672 Other chronic osteomyelitis, left ankle and foot (principal) | CPT/HCPCS: G0277 ==

== ENCOUNTER 2020-04-28 07:57 | Outpatient (CLI) | payer OTHER, SELFPAY | END 2020-04-28 07:58 | disposition home or self-care (01) | LOC: WOUND 07:58 | PROVIDERS: PCP Family Medicine; Visit Provider Nurse Practitioner Family | DX: M86.672 Other chronic osteomyelitis, left ankle and foot (principal) | CPT/HCPCS: G0277 ==

== ENCOUNTER 2020-04-29 07:59 | Outpatient (CLI) | payer OTHER, SELFPAY | END 2020-04-29 08:00 | disposition home or self-care (01) | LOC: WOUND 08:00 | PROVIDERS: PCP Family Medicine; Visit Provider Thoracic Surgery (Cardiothoracic Vascular Surgery) | DX: M86.672 Other chronic osteomyelitis, left ankle and foot (principal) | CPT/HCPCS: 99212; G0277 ==

== ENCOUNTER 2020-04-30 07:44 | Outpatient (CLI) | payer OTHER, SELFPAY | END 2020-04-30 07:45 | disposition home or self-care (01) | LOC: WOUND 07:44 | PROVIDERS: PCP Family Medicine; Visit Provider Thoracic Surgery (Cardiothoracic Vascular Surgery) | DX: M86.672 Other chronic osteomyelitis, left ankle and foot (principal) | CPT/HCPCS: G0277 ==

== ENCOUNTER 2020-05-01 07:57 | Outpatient (CLI) | payer OTHER, SELFPAY | END 2020-05-01 07:58 | disposition home or self-care (01) | LOC: WOUND 07:58 | PROVIDERS: PCP Family Medicine; Visit Provider Nurse Practitioner Family | DX: M86.672 Other chronic osteomyelitis, left ankle and foot (principal) | CPT/HCPCS: G0277 ==

== ENCOUNTER 2020-05-02 07:47 | Outpatient (CLI) | payer OTHER, SELFPAY | END 2020-05-02 07:48 | disposition home or self-care (01) | LOC: WOUND 07:48 | PROVIDERS: PCP Family Medicine; Visit Provider Surgery | DX: M86.672 Other chronic osteomyelitis, left ankle and foot (principal) | CPT/HCPCS: G0277 ==

== ENCOUNTER 2020-05-05 07:44 | Outpatient (CLI) | payer OTHER, SELFPAY | END 2020-05-05 07:45 | disposition home or self-care (01) | LOC: WOUND 07:44 | PROVIDERS: PCP Family Medicine; Visit Provider Nurse Practitioner Family | DX: M86.672 Other chronic osteomyelitis, left ankle and foot (principal) | CPT/HCPCS: G0277 ==

== ENCOUNTER 2020-05-06 08:14 | Outpatient (CLI) | payer OTHER, SELFPAY | END 2020-05-06 08:15 | disposition home or self-care (01) | LOC: WOUND 08:14 | PROVIDERS: PCP Family Medicine; Visit Provider Thoracic Surgery (Cardiothoracic Vascular Surgery) | DX: M86.672 Other chronic osteomyelitis, left ankle and foot (principal) | CPT/HCPCS: G0277 ==

== ENCOUNTER 2020-05-07 07:55 | Outpatient (CLI) | payer OTHER, SELFPAY | END 2020-05-07 07:56 | disposition home or self-care (01) | LOC: WOUND 07:55 | PROVIDERS: PCP Family Medicine; Visit Provider Thoracic Surgery (Cardiothoracic Vascular Surgery) | DX: M86.672 Other chronic osteomyelitis, left ankle and foot (principal) | CPT/HCPCS: G0277 ==

== ENCOUNTER 2020-05-08 07:49 | Outpatient (CLI) | payer OTHER, SELFPAY | END 2020-05-08 07:50 | disposition home or self-care (01) | LOC: WOUND 07:50 | PROVIDERS: PCP Family Medicine; Visit Provider Nurse Practitioner Family | DX: M86.672 Other chronic osteomyelitis, left ankle and foot (principal) | CPT/HCPCS: G0277 ==

== ENCOUNTER 2020-05-09 08:06 | Outpatient (CLI) | payer OTHER, SELFPAY | END 2020-05-09 08:07 | disposition home or self-care (01) | LOC: WOUND 08:08 | PROVIDERS: PCP Family Medicine; Visit Provider Surgery | DX: M86.672 Other chronic osteomyelitis, left ankle and foot (principal) | CPT/HCPCS: G0277 ==

== ENCOUNTER 2020-05-12 07:50 | Outpatient (CLI) | payer OTHER, SELFPAY | END 2020-05-12 07:51 | disposition home or self-care (01) | LOC: WOUND 07:50 | PROVIDERS: PCP Family Medicine; Visit Provider Nurse Practitioner Family | DX: M86.672 Other chronic osteomyelitis, left ankle and foot (principal) | CPT/HCPCS: G0277 ==

== ENCOUNTER 2020-05-14 07:44 | Outpatient (CLI) | payer OTHER, SELFPAY | END 2020-05-14 07:45 | disposition home or self-care (01) | LOC: WOUND 07:45 | PROVIDERS: PCP Family Medicine; Visit Provider Thoracic Surgery (Cardiothoracic Vascular Surgery) | DX: M86.672 Other chronic osteomyelitis, left ankle and foot (principal) | CPT/HCPCS: 87070; G0277 ==

== ENCOUNTER 2020-05-15 08:07 | Outpatient (CLI) | payer OTHER, SELFPAY | END 2020-05-15 08:08 | disposition home or self-care (01) | LOC: WOUND 08:07 | PROVIDERS: PCP Family Medicine; Visit Provider Nurse Practitioner Family | DX: M86.672 Other chronic osteomyelitis, left ankle and foot (principal) | CPT/HCPCS: G0277 ==

== ENCOUNTER 2020-05-16 08:02 | Outpatient (CLI) | payer OTHER, SELFPAY | END 2020-05-16 08:03 | disposition home or self-care (01) | LOC: WOUND 08:03 | PROVIDERS: PCP Family Medicine; Visit Provider Surgery | DX: M86.672 Other chronic osteomyelitis, left ankle and foot (principal) | CPT/HCPCS: G0277 ==

== ENCOUNTER 2020-05-19 07:40 | Outpatient (CLI) | payer OTHER, SELFPAY | END 2020-05-19 07:41 | disposition home or self-care (01) | LOC: WOUND 07:40 | PROVIDERS: PCP Family Medicine; Visit Provider Nurse Practitioner Family | DX: M86.672 Other chronic osteomyelitis, left ankle and foot (principal) | CPT/HCPCS: G0277 ==

== ENCOUNTER 2020-05-21 08:44 | Outpatient (CLI) | payer OTHER, SELFPAY | END 2020-05-21 08:45 | disposition home or self-care (01) | LOC: WOUND 08:45 | PROVIDERS: PCP Family Medicine; Visit Provider Thoracic Surgery (Cardiothoracic Vascular Surgery) | DX: E11.621 Type 2 diabetes mellitus with foot ulcer (principal); L97.522 Non-pressure chronic ulcer of other part of left foot with fat layer exposed | CPT/HCPCS: 11042 ==

== ENCOUNTER 2020-06-03 12:52 | Inpatient (IN) | payer OTHER, MEDICARE, SELFPAY ==
[2020-06-03] VITALS (9 sets, daily range): BP systolic 141–166; BP diastolic 80–97; PULSE 0–136; RESP 17–36; TEMP 36.7–36.8; O2SAT 90–100; BMI 36.5
--- NOTE | 2020-06-03 12:54 | ECG_ITS ---
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 Measurements Intervals [place] Rate: 49 P: DE: QRS: 115 QRSD: 107 T: 42 QT: 441 QTc: 400 Interpretive Statements SUPRAVENTRICULAR BRADYCARDIA LOW QRS VOLTAGE IN PRECORDIAL LEADS [QRS DEFLECTION < 1.0 mV IN CHEST LEADS] INCOMPLETE RIGHT BUNDLE BRANCH BLOCK [90+ ms QRS DURATION, TERMINAL R IN V1/V2, 40+ ms S IN I/aVL/V4/V5/V6] LEFT POSTERIOR FASCICULAR BLOCK [QRS AXIS > 109, INFERIOR Q] MODERATE ST DEPRESSION [0.05+ mV ST DEPRESSION] Compared to ECG 03/17/2020 12:05:33 Indeterminate axis now present Low QRS voltage now present Incomplete right bundle-branch block now present Left posterior fascicular block now present ST (T wave) deviation now present Myocardial infarct finding no longer present Electronically Signed On 06-03-2020 17:35:20 GOLF COURSE ASSISTANT by Danny Blas M.D. [id number]
--- NOTE | 2020-06-03 12:54 | XR_ITS ---
WS: [id number] Exam: XR chest 1V portable [id number] Date/Time of Exam: 06/03/2020 1:15 PM Reason For Exam: chest pain Compared to study of 03/17/2020. There is cardiac enlargement unchanged. Pulmonary vascularity is prominent but similar to prior study . No consolidating infiltrate or pneumothorax. No pleural effusion. XR/XR chest 1V portable [id number] IMPRESSION: 1. Cardiac enlargement with prominent pulmonary vascularity. The pattern is unc hanged.
--- NOTE | 2020-06-03 13:31 | CT_ITS ---
WS: [id number] CT ABDOMEN PELVIS TECHNIQUE: Contrast-enhanced CT of the abdomen and pelvis with coronal and sagittal reformatted image s. CLINICAL INFORMATION: abdominal tenderness worst LUQ COMPARISON: CTA September 06, 2019 DLP: 2020.[address] scans at [facility] use at least one of these dose optimization techniques: automat ed exposure control; mA and/or kV adjustment per patient size (includes targeted exams where dose is matched to clinical indication); or iterative reconstruction. FINDINGS: Hepatomegaly. Cirrhotic hepatic contour. Diffuse fibrofatty infiltration of the liver. Cholelithiasis . Small amount of fluid in the gallbladder fossa likely due to hepatic disease. Small amount of perih epatic ascites. Perisplenic ascites. Fluid layering along the left pericolic gutter and pelvis. Diver ticulosis in the sigmoid colon. No definite evidence of acute diverticulitis. Small left and tiny right pleural effusions. Cardiomegaly. Normal pancreatic enhancement. Portal vein s and splenic vein appear patent. Normal caliber abdominal aorta. Aortic calcification. Adrenal gland s are normal. No hydronephrosis. Normal renal parenchymal enhancement. Bilateral renal cysts. No abdo yeimy or pelvic lymphadenopathy. Tiny fat-containing umbilical hernia. Disc space narrowing with dege nerative endplate-type changes L5-S1 with grade 1 anterolisthesis. [facility] spondyl[facility]/CT abdomen pelvis w con* [id number] IMPRESSION: 1. Cirrhotic liver with a small amount of perihepatic and perisplenic ascites 2. Small left and tiny right pleural effusions. 3. Cholelithiasis. 4. Normal renal parenchymal enhancement. No hydronephrosis. 5. Normal caliber abdominal aorta. 6. Sigmoid diverticulosis. No evidence of acute diverticulitis. Ascites in the left pericolic gutter. 7. Diffuse body wall anasarca. 8. Small amount of ascites in the pelvis. 9. Grade 1 anterolisthesis L5 on S1 with chronic spondylolysis. Notified Sergio Mcpherson MD at 06/03/2020 2:46 PM.
[2020-06-03 13:35] LABS: Basophils % 0.6 %; Eosinophils % 0.4 %; Hematocrit 36.2 % (42.0-52.0); Hemoglobin 11.4 g/dL (11.7-16.6); Lymphocytes # 0.9 10^3/uL (0.8-4.8); Lymphocytes % 12.7 %; Mean Corpuscular HGB Conc 31.5 g/dL (30.0-36.0); Mean Corpuscular Hemoglobin 26.8 pg (28.0-34.0); Mean Corpuscular Volume 85.2 fL (80-94); Mean Platelet Volume 10.2 fL (7.4-10.4); Monocytes # 0.7 10^3/uL (0.2-0.9); Monocytes % 10.1 %; Neutrophils % 75.8 %; Nucleated Red Blood Cells % 0 %; Platelet Count 234 10^3/cmm (130-400); Red Blood Count 4.25 10^6/uL (4.1-5.3); Red Cell Distribution Width 15.2 % (12.1-15.1); White Blood Count 6.9 10^3/uL (4.0-10.0)
[2020-06-03 13:56] LABS: Alanine Aminotransferase 14 U/L (0-41); Albumin Level 3.7 g/dL (3.5-5.2); Alkaline Phosphatase 128 IU/L (40-130); Anion Gap 15.6 (5-19); Aspartate Amino Transferase 24 U/L (0-40); Blood Urea Nitrogen 17 mg/dL (8-23); Calcium 8.7 mg/dL (8.5-10.5); Carbon Dioxide 27 mmol/L (22-29); Chloride 95 mmol/L (98-107); Globulin 3.6 g/dL (1.3-4.6); Glucose 195 mg/dL (65-115); Lipase 33 U/L (13-60); Osmolality Calculated 283 mOsm/kg (285-295); Potassium 4.6 mmol/L (3.5-5.1); Sodium 133 mmol/L (136-145); Total Bilirubin 1.6 mg/dL (0.15-1.2); Total Protein 7.3 g/dL (6.6-8.7)
[2020-06-03 13:57] LABS: Lactate (Lactic Acid level) 1.9 mmol/L (0.5-2.2); Troponin(5th) Baseline 51 ng/L (0-15)
[2020-06-03 14:10] LABS: D Dimer 4.15 ug/mIFEU (0-0.59)
[2020-06-03] MEDS: iohexol 300 mg/mL 100 mL Btl IV (14:37)
[2020-06-03 14:59] LABS: Blood Urine 3+ (Negative); Glucose Urine UA Norm (Normal); Ketones Urine Negative (Negative); Nitrate Urine Negative (Negative); Protein Urine Trace (Negative); Specific Gravity, Urine 1.015 (1.005-1.030); Urine Appearance Clear (CLEAR); Urine Color Yellow (Yellow); pH Urine 6.5 (5-7)
[2020-06-03 15:00] LABS: Add Urine Microscopic? YES; Bilirubin Urine 1+ (Negative); Leukocyte Esterase Urine Negative (Negative); Urobilinogen Urine 1 mg/dL (Negative)
[2020-06-03 15:07] LABS: Add Urine Culture? Yes; Bacteria Urine 2+ /hpf; RBC Urine 25-40 /hpf (0-2); Squamous Epithelial Cell Urine 0-4 /hpf (0-5); WBC Urine 0-4 /hpf (0-5)
[2020-06-03 15:26] LABS: NT Pro B Type Natriuretic Pept 1472 pg/mL (0-450)
--- NOTE | 2020-06-03 15:32 | ECG_ITS ---
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 Measurements Intervals [place] Rate: 60 P: NV: QRS: 92 QRSD: 109 T: 19 QT: 436 QTc: 438 Interpretive Statements ATRIAL FIBRILLATION INDETERMINATE AXIS LOW QRS VOLTAGE IN PRECORDIAL LEADS [QRS DEFLECTION < 1.0 mV IN CHEST LEADS] INCOMPLETE RIGHT BUNDLE BRANCH BLOCK [90+ ms QRS DURATION, TERMINAL R IN V1/V2, 40+ ms S IN I/aVL/V4/V5/V6] ABNORMAL RHYTHM ECG Compared to ECG 06/03/2020 13:26:32 Left posterior fascicular block no longer present ST (T wave) deviation no longer present Electronically Signed On 06-03-2020 17:43:35 POLICE CAPTAIN SENIOR by Danny Blas M.D. [id number]
[2020-06-03] MEDS: FUROsemide 10 mg/mL SDV 4mL 40 MG IVP (15:40)
[2020-06-03 15:55] LABS: Troponin 5 2HR 48.98 ng/L (0-15)
[2020-06-03 15:56] LABS: Troponin 5 2HR Delta -2.02 ABS# (0-10)
[2020-06-03] MEDS: magnesium citrate Btl 296 mL PO (16:03)
[2020-06-03 16:11] LABS: Hepatitis A Antibody IgM Non-Reactive (Nonreactive); Hepatitis B Core IgM Non-Reactive (Nonreactive); Hepatitis B Surface Antigen Non-Reactive (Nonreactive); Hepatitis C Virus Antibody Non-Reactive (Nonreactive)
--- NOTE | 2020-06-03 18:08 | ED_ITS ---
HPI - Chest Pain General: Chief Complaint: Chest Pain Stated Complaint: sent from heart care/CHEST PAIN Time Seen by Provider: 06/03/20 13:24 History of Present Illness: HPI narrative: The patient is a 74-year-old male who comes to the ER complaining of left upper quadrant abdominal pain and left lower chest wall pain. He says he has been having this for a week and went to see his turnaround planner today who sent him to the ER. He says he has been constipated over the past for 5 days and has had only small bowel movements which do not improve his pain and he says he feels very constipated like he has to go but cannot pass the stool. He has past medical history atrial fibrillation on Eliquis, peripheral vascular disease Onset (ago): week(s) (1) Onset: during rest Pain radiation: none Severity: moderate Quality: sharp Relieving factors: nothing Exacerbating factors: nothing Associated symptoms: Reports abdominal pain; Deny dyspnea, nausea, palpitations or vomiting Review of Systems General: Reports: 10 or more systems reviewed and unremarkable except in HPI and below Const: Denies: fatigue Eyes: Denies: change in vision, blurry vision or eye redness ENMT: Denies: throat pain, swelling of lips/tongue, ear or mastoid pain or nasal congestion Card: Reports: other (lower left chest wall pain touching LUQ abd); Denies: chest pain, palpitations, irregular heart rhythm, edema, dyspnea on exertion or orthopnea Resp: Denies: dyspnea, productive cough or non-productive cough GI: Reports: abdominal pain and constipation; Denies: nausea or vomiting : Denies: flank pain, urinary frequency or urinary urgency Musc: Denies: neck pain, back pain, extremity pain, joint pain, joint redness, limited range of motion or muscle weakness Skin/Breast: Denies: rash, pruritus, erythema, skin pain or skin tenderness Neuro: Denies: headache(s), numbness in extremities, weakness in extremities, sensory changes, difficulty walking, dizziness, confusion or Slurred speech present Psych: Denies: anxiety or depression Endo: Denies: polyuria All/Imm: Denies: urticaria, throat swelling or tongue swelling [facility] ED PFSH: Medical History (Updated 06/03/20 @ 20:35 by Katerine Padilla MD) Bradycardia Patient has a longstanding history of atrial fibrillation and bradycardia CHF (congestive heart failure) Chronic atrial fibrillation Patient is on long-term oral anticoagulation. He is taking Eliquis. Chronic venous insufficiency COPD (chronic obstructive pulmonary disease) Diabetes Diverticulosis Hyperlipidemia Hypertension [facility] (current) use of opiate analgesic Non-healing ulcer Osteomyelitis Right toe status post debridement and bone biopsy, [facility] 2018 PAD (peripheral artery disease) Patient has two-vessel runoff on the left side and three-vessel runoff on the right side. He has mild to moderate diffuse peripheral arterial disease. Pain management contract signed Sleep apnea SOB (shortness of breath) Patient is known to have COPD Varicose veins of bilateral lower extremities with other complications Surgical History (Updated 06/03/20 @ 20:35 by Katerine Padilla MD) History of hip surgery Hx of toe surgery Hx of tonsillectomy Family History Other CAD (coronary artery disease) Cancer Diabetes Denies family history of Anesthesia complication Bleeding disorder Social History Smoking and tobacco status: never smoked Alcohol intake: never Lives independently: Yes Household members: spouse Housing: House Marital status: Current occupational status: employed History of recent travel: No Physical Exam Const: COMMON NORMALS: no acute distress, average body habitus, patient oriented x3, no limitations, healthy appearing, alert and well nourished GENERAL APPEARANCE: cooperative, comfortable, well kempt and well developed ORIENTATION/CONSCIOUSNESS: Yes awake, Yes oriented to person, Yes oriented to place and Yes oriented to time HENMT: COMMON NORMALS: normocephalic, external ears normal and Normal external nose present HEAD & SCALP: normal to inspection and normocephalic NOSE: Normal external nose present EXTERNAL EAR: Yes external ears normal MOUTH: Normal oral and palatal mucosa present THROAT: posterior oropharynx normal Eye: COMMON NORMALS: Equal, round and reactive pupils present and EOMs intact bilaterally GENERAL EYE: appearance normal, both eyes and all related structures PUPIL: Yes Equal, round and reactive pupils present Neck/C-Spine: COMMON NORMALS: full ROM, no lymphadenopathy, no meningeal signs and no JVD GENERAL: Yes normal visual inspection Lymph: LYMPHATIC: no lymphadenopathy noted Chest: COMMONS NORMALS: normal inspection of the chest and normal palpation of entire chest wall OTHER: He is tender to his left lower chest wall and his left upper quadrant abdomen. The pain is worse in the left upper quadrant. Resp: COMMON NORMALS: normal respiratory effort, No retractions, No use of accessory muscles, clear to auscultation bilaterally and percussion normal EF FORT & INSPECTION: Yes able to speak in complete sentences AUSCULTATION: clear to auscultation bilaterally PERCUSSION: percussion normal Cardio: COMMON NORMALS: no JVD, regular rate, regular rhythm, S1 normal heart sound present, S2 normal heart sound present and Peripheral pulses 2+ throughout RATE: regular rate RHYTHM: regular rhythm HEART SOUNDS: S1 normal heart sound present and S2 normal heart sound present PERIPHERAL PULSES: Peripheral pulses 2+ throughout GI: OTHER: Left upper quadrant tenderness is the most pronounced it extends to the left lower chest wall as well. He has a slightly distended abdomen but it could just be obesity. Belly is soft. Other quadrants nontender. Normal bowel sounds. : COMMON NORMALS: Yes no CVA tenderness BLADDER/KIDNEY EXAM: Yes no CVA tenderness Back/Pelvis: COMMON NORMALS: no CVA tenderness, thoracic and lumbar spine normal to inspection, no thoracic nor lumbar tenderness and thoraco-lumbar ROM normal Extremity: COMMON NORMALS: normal to inspection, full ROM, capillary refill normal, no joint enlargement and no pedal edema GENERAL: Yes normal exam except as noted Neuro: COMMON NORMALS: patient oriented x3, CN's II-XII intact bilaterally, moves all extremities, no focal motor deficits, no sensory deficits noted and gait normal SENSORIUM/ORIENTATION: Yes alert, Yes oriented to person, Yes oriented to place and Yes oriented to time MENINGEAL SIGNS: Yes no meningeal signs Psych: COMMON NORMALS: mental status grossly normal, Normal thought process present, cooperative, normal affect and speech normal APPEARANCE: Yes well kempt ATTITUDE: Yes calm SPEECH: Yes normal speech THOUGHT PROCESS: Normal thought process present Skin: COMMON NORMALS: no rashes or lesions noted GENERAL SKIN EXAM: no rashes or lesions noted Course Vital Signs: Vital signs: Vital Signs Temperature 98.2 F 06/03/20 20:49 Pulse Rate 58 L 06/03/20 20:49 Respiratory Rate 25 H 06/03/20 20:49 Blood Pressure 151/86 06/03/20 20:49 Pulse Oximetry 92 06/03/20 20:49 MDM - Chest Pain MDM Narrative: Medical decision making narrative: The patient comes to the ER with left upper quadrant abdominal neck pain. CT abdomen pelvis shows liver cirrhosis and anasarca of his wall of his belly. These are new to him. He denies alcohol history. CT also shows gallstones which she is having no symptoms of. Discussed with Dr. Galloway who accepts for observation. Lab Data: Labs: Lab Results 06/03/20 06/03/20 06/03/20 Range/Units 13:25 13:25 13:25 WBC 6.9 (4.0-10.0) 10^3/ uL RBC 4.25 (4.1-5.3) 10^6/u L Hgb 11.4 L (11.7-16.6) g/dL Hct 36.2 L (42.0-52.0) % MCV 85.2 (80-94) fL MCH 26.8 L (28.0-34.0) pg MCHC 31.5 (30.0-36.0) g/dL RDW 15.2 H (12.1-15.1) % Plt Count 234 (130-400) 10^3/c mm MPV 10.2 (7.4-10.4) fL Neut % (Auto) 75.8 % Lymph % (Auto) 12.7 % [place] % (Auto) 10.1 % Eos % (Auto) 0.4 % Baso % (Auto) 0.6 % Neut # (Auto) 5.20 (1.8-7.7) 10^3/u L Lymph # (Auto) 0.9 (0.8-4.8) 10^3/u L [place] # (Auto) 0.7 (0.2-0.9) 10^3/u L Eos # (Auto) 0.0 (0.0-0.8) 10^3/u L Baso # (Auto) 0.0 (0.0-0.1) 10^3/u L Nucleated RBC % (a uto) 0 % Nucleated RBCs # 0.0 /100WBC D-Dimer (0-0.59) ug/mIFE U Sodium 133 L (136-145) mmol/L Potassium 4.6 (3.5-5.1) mmol/L Chloride 95 L (98-107) mmol/L Carbon Dioxide 27 (22-29) mmol/L Anion Gap 15.6 (5-19) BUN 17 (8-23) mg/dL Creatinine 1.1 (0.7-1.2) mg/dL GFR Calculation Not Reportable Glucose 195 H (65-115) mg/dL Calculated Osmolal ity 283 L (285-295) mOsm/k g Lactate (0.5-2.2) mmol/L Calcium 8.7 (8.5-10.5) mg/dL Total Bilirubin 1.6 H (0.15-1.2) mg/dL AST 24 (0-40) U/L ALT 14 (0-41) U/L Alkaline Phosphata se 128 (40-130) IU/L Troponin T Baselin e 51 H (0-15) ng/L Troponin T 120 Min [place] (0-15) ng/L Delta Troponin T (0-10) ABS# NT-Pro-B Natriuret Pep (0-450) pg/mL Total Protein 7.3 (6.6-8.7) g/dL Albumin 3.7 (3.5-5.2) g/dL Globulin 3.6 (1.3-4.6) g/dL Lipase (13-60) U/L Urine Color (Yellow) Urine Appearance (CLEAR) Urine pH (5-7) Ur Specific Gravit y (1.005-1.030) Urine Protein (Negative) Urine Glucose (UA) (Normal) Urine Ketones (Negative) Urine Blood (Negative) Urine Nitrate (Negative) Urine Bilirubin (Negative) Urine Urobilinogen (Negative) mg/dL Ur Leukocyte Nasima ase (Negative) Urine RBC (0-2) /hpf Urine WBC (0-5) /hpf Ur Squamous Epith Cells (0-5) /hpf Amorphous Sediment Urine Bacteria (NONE) /hpf Hepatitis A IgM Ab (Nonreactive) Hep Bs Antigen (Nonreactive) Hep B Core IgM Ab (Nonreactive) Hepatitis C Antibo dy (Nonreactive) 06/03/20 06/03/20 06/03/20 Range/Units 13:25 13:25 13:25 WBC (4.0-10.0) 10^3/ uL RBC (4.1-5.3) 10^6/u L Hgb (11.7-16.6) g/dL Hct (42.0-52.0) % MCV (80-94) fL MCH (28.0-34.0) pg MCHC (30.0-36.0) g/dL RDW (12.1-15.1) % Plt Count (130-400) 10^3/c mm MPV (7.4-10.4) fL Neut % (Auto) % Lymph % (Auto) % [place] % (Auto) % Eos % (Auto) % Baso % (Auto) % Neut # (Auto) (1.8-7.7) 10^3/u L Lymph # (Auto) (0.8-4.8) 10^3/u L [place] # (Auto) (0.2-0.9) 10^3/u L Eos # (Auto) (0.0-0.8) 10^3/u L Baso # (Auto) (0.0-0.1) 10^3/u L Nucleated RBC % (a uto) % Nucleated RBCs # /100WBC D-Dimer 4.15 H (0-0.59) ug/mIFE U Sodium (136-145) mmol/L Potassium (3.5-5.1) mmol/L Chloride (98-107) mmol/L Carbon Dioxide (22-29) mmol/L Anion Gap (5-19) BUN (8-23) mg/dL Creatinine (0.7-1.2) mg/dL GFR Calculation Glucose (65-115) mg/dL Calculated Osmolal ity (285-295) mOsm/k g Lactate 1.9 (0.5-2.2) mmol/L Calcium (8.5-10.5) mg/dL Total Bilirubin (0.15-1.2) mg/dL AST (0-40) U/L ALT (0-41) U/L Alkaline Phosphata se (40-130) IU/L Troponin T Baselin e (0-15) ng/L Troponin T 120 Min [place] (0-15) ng/L Delta Troponin T (0-10) ABS# NT-Pro-B Natriuret Pep 1472 H (0-450) pg/mL Total Protein (6.6-8.7) g/dL Albumin (3.5-5.2) g/dL Globulin (1.3-4.6) g/dL Lipase 33 (13-60) U/L Urine Color (Yellow) Urine Appearance (CLEAR) Urine pH (5-7) Ur Specific Gravit y (1.005-1.030) Urine Protein (Negative) Urine Glucose (UA) (Normal) Urine Ketones (Negative) Urine Blood (Negative) Urine Nitrate (Negative) Urine Bilirubin (Negative) Urine Urobilinogen (Negative) mg/dL Ur Leukocyte Nasima ase (Negative) Urine RBC (0-2) /hpf Urine WBC (0-5) /hpf Ur Squamous Epith Cells (0-5) /hpf Amorphous Sediment Urine Bacteria (NONE) /hpf Hepatitis A IgM Ab (Nonreactive) Hep Bs Antigen (Nonreactive) Hep B Core IgM Ab (Nonreactive) Hepatitis C Antibo dy (Nonreactive) 06/03/20 06/03/20 06/03/20 Range/Units 14:22 15:27 15:27 WBC (4.0-10.0) 10^3/ uL RBC (4.1-5.3) 10^6/u L Hgb (11.7-16.6) g/dL Hct (42.0-52.0) % MCV (80-94) fL MCH (28.0-34.0) pg MCHC (30.0-36.0) g/dL RDW (12.1-15.1) % Plt Count (130-400) 10^3/c mm MPV (7.4-10.4) fL Neut % (Auto) % Lymph % (Auto) % [place] % (Auto) % Eos % (Auto) % Baso % (Auto) % Neut # (Auto) (1.8-7.7) 10^3/u L Lymph # (Auto) (0.8-4.8) 10^3/u L [place] # (Auto) (0.2-0.9) 10^3/u L Eos # (Auto) (0.0-0.8) 10^3/u L Baso # (Auto) (0.0-0.1) 10^3/u L Nucleated RBC % (a uto) % Nucleated RBCs # /100WBC D-Dimer (0-0.59) ug/mIFE U Sodium (136-145) mmol/L Potassium (3.5-5.1) mmol/L Chloride (98-107) mmol/L Carbon Dioxide (22-29) mmol/L Anion Gap (5-19) BUN (8-23) mg/dL Creatinine (0.7-1.2) mg/dL GFR Calculation Glucose (65-115) mg/dL Calculated Osmolal ity (285-295) mOsm/k g Lactate (0.5-2.2) mmol/L Calcium (8.5-10.5) mg/dL Total Bilirubin (0.15-1.2) mg/dL AST (0-40) U/L ALT (0-41) U/L Alkaline Phosphata se (40-130) IU/L Troponin T Baselin e (0-15) ng/L Troponin T 120 Min [place] 48.98 H (0-15) ng/L Delta Troponin T -2.02 L (0-10) ABS# NT-Pro-B Natriuret Pep (0-450) pg/mL Total Protein (6.6-8.7) g/dL Albumin (3.5-5.2) g/dL Globulin (1.3-4.6) g/dL Lipase (13-60) U/L Urine Color Yellow (Yellow) Urine Appearance Clear (CLEAR) Urine pH 6.5 (5-7) Ur Specific Gravit y 1.015 (1.005-1.030) Urine Protein Trace (Negative) Urine Glucose (UA) Norm (Normal) Urine Ketones Negative (Negative) Urine Blood 3+ H (Negative) Urine Nitrate Negative (Negative) Urine Bilirubin 1+ H (Negative) Urine Urobilinogen 1 H (Negative) mg/dL Ur Leukocyte Nasima ase Negative (Negative) Urine RBC 25-40 H (0-2) /hpf Urine WBC 0-4 H (0-5) /hpf Ur Squamous Epith Cells 0-4 H (0-5) /hpf Amorphous Sediment Not Reportable Urine Bacteria 2+ H (NONE) /hpf Hepatitis A IgM Ab Non-reactive (Nonreactive) Hep Bs Antigen Non-reactive (Nonreactive) Hep B Core IgM Ab Non-reactive (Nonreactive) Hepatitis C Antibo dy Non-reactive (Nonreactive) Discharge Plan Discharge Patient Disposition: Placed in Observation Admit Provider: Shani Galloway Clinical Impression: Abdominal pain, Chest pain, Cirrhosis, Anasarca Coding Level of Care Code ED Rock Crushing Machine Operator for Chg Fwd Exam Comprehensive
--- NOTE | 2020-06-03 18:54 | ECG_ITS ---
[facility] Test Date: 2020-06-03 Pat Name: Refugio Amanda Department: Room: 277 Gender: Male Capacity Analyst: : 1945 Requested By: Kathi Naik Order Number: [id number] Reading MD: JERMAINE CONNOLLY Measurements Intervals [place] Rate: 60 P: [place]: QRS: 153 QRSD: 114 T: 42 QT: 457 QTc: 459 Interpretive Statements SUPRAVENTRICULAR RHYTHM INCOMPLETE RIGHT BUNDLE BRANCH BLOCK [90+ ms QRS DURATION, TERMINAL R IN V1/V2, 40+ ms S IN I/aVL/V4/V5/V6] Compared to ECG 06/03/2020 15:02:20 Supraventricular rhythm now present Atrial fibrillation no longer present Indeterminate axis no longer present Electronically Signed On 06-04-2020 20:09:08 PHLEBOTOMY SUPPORT TECH by JERMAINE CONNOLLY [id number]
[2020-06-03 18:57] LABS: SARS Covid-2 Antigen Negative (Negative)
--- NOTE | 2020-06-03 19:55 | P.HP_ITS ---
Providers/Chief Complaint Admitting Physician: Shani Galloway MD Primary Care Provider: Mary Lou Anaya MD Chief Complaint: sent from heart care/CHEST PAIN History of Present Illness Refugio Amanda is a 74 year old male who presented today with chief complaint of left upper quadrant pain. Patient is stating that he has never been diagnosed with liver cirrhosis or failure in the past he has multiple comorbid conditions including A. fib, bradycardia, chronic anticoagulation, COPD, uses BiPAP at night, has never smoked in his life. Mr. Amanda is stating that he was in his usual state of health until about 2 to 3 weeks ago when he started feeling more bloated and his breathing was getting more labored he did not experience any fever, nausea, vomiting, diarrhea or chest pain. He has experienced orthopnea and PND uses BiPAP at night. He has started using Lasix 20 mg twice a day along with spironolactone but it does not seem to improve his abdominal bloating. Because of worsening of symptoms he decided to come to the hospital for further evaluation. He is denying any IV drug abuse, recreational drug use, HIV, parkinsonian features, stroke. No family history of liver failure and COPD. He has never been diagnosed with all of 1 antitrypsin level deficiency. He does have heart failure ejection fraction 40 to 45% with tricuspid valve regurgitation. Diagnostics in the ER revealed bradycardia, normal blood pressure, he was saturating well on 2 L nasal cannula no active chest pain shortness of breath however he has anasarca, hemoglobin 11.4, D-dimer 4, sodium 133, BNP 1500, CT abdomen revealed ascites and fluid perisplenic and perihepatic ascites, bilateral pleural effusion, cholelithiasis, sigmoid diverticulosis, he was given 40 mg of IV Lasix in the ER along mag citrate. Review of Systems Const: Reports: fever(s), body aches, change in appetite, change in weight, fatigue and malaise; Denies: chills Eyes: Denies: change in vision ENMT: Denies: throat pain Card: Reports: irregular heart rhythm, edema, swelling of feet/ankles, dyspnea on exertion and orthopnea; Denies: chest pain Resp: Reports: dyspnea and non-productive cough GI: Reports: abdominal pain, early satiety, bloating and GI cramping; Denies: nausea, vomiting or diarrhea : Denies: flank pain Musc: Reports: joint swelling, muscle cramps and muscle weakness Skin/Breast: Reports: non-healing lesions and lesions Neuro: Denies: headache(s) Psych: Denies: anxiety Endo: Denies: polyuria Jose Miguel/Lymph: Denies: easy bruising All/Imm: Denies: urticaria Medications/Allergies Home Medications Medication Instructions Recorded Confirmed Last Taken Type apixaban 5 mg tablet 5 mg PO BID 04/09/19 06/03/20 06/03/20 09:30 History cinnamon bark 500 mg capsule 500 mg PO BID cap 04/09/19 06/03/20 09/23/19 08:00 History furosemide 20 mg tablet 20 mg PO BID 04/09/19 06/03/20 06/02/20 History gabapentin 800 mg tablet 800 mg PO TID 04/09/19 06/03/20 06/03/20 09:30 History glipizide 10 mg tablet 20 mg PO BID 04/09/19 06/03/20 09/23/19 20:00 History levothyroxine 100 mcg capsule 100 mcg PO QAM cap 04/09/19 06/03/20 06/03/20 History losartan 100 mg tablet 100 mg PO QAM tab 04/09/19 06/03/20 06/03/20 History metformin 850 mg tablet 850 mg PO TID 04/09/19 06/03/20 06/03/20 09:30 History omeprazole 20 mg capsule,delayed 20 mg PO BID 04/09/19 06/03/20 06/03/20 09:30 History release spironolactone 25 mg tablet 25 mg PO DAILY tab 04/09/19 06/03/20 09/23/19 20:00 History vitamin B complex 1 cap PO PRN cap 04/09/19 06/03/20 09/23/19 08:00 History vitamin E (dl, acetate) 450 mg 1,000 unit PO PRN cap 04/09/19 06/03/20 09/23/19 08:00 History (1,000 unit) capsule pentoxifylline 400 mg 400 mg PO TID 04/12/19 06/03/20 06/03/20 09:30 History tablet,extended release alogliptin 25 mg tablet 25 mg PO QAM 11/29/19 06/03/20 06/03/20 History oxycodone-acetaminophen 5 mg-325 1 tab PO BID PRN 30 Days #45 tab 04/07/20 06/03/20 Unknown Rx mg tablet Fish Oil 1 cap PO BID 06/03/20 06/03/20 Unknown History Allergies Allergy/AdvReac Type Severity Reaction Status Date / Time lisinopril Allergy Unknown Verified 06/03/20 15:00 PFSH Acute PFSH: Medical History Bradycardia Patient has a longstanding history of atrial fibrillation and bradycardia CHF (congestive heart failure) Chronic atrial fibrillation Patient is on long-term oral anticoagulation. He is taking Eliquis. Chronic venous insufficiency COPD (chronic obstructive pulmonary disease) Diabetes Diverticulosis Hyperlipidemia Hypertension [facility] (current) use of opiate analgesic Non-healing ulcer Osteomyelitis Right toe status post debridement and bone biopsy, [facility] 2018 PAD (peripheral artery disease) Patient has two-vessel runoff on the left side and three-vessel runoff on the right side. He has mild to moderate diffuse peripheral arterial disease. Pain management contract signed Sleep apnea SOB (shortness of breath) Patient is known to have COPD Varicose veins of bilateral lower extremities with other complications Surgical History History of hip surgery Hx of toe surgery Hx of tonsillectomy Family History Other CAD (coronary artery disease) Cancer Diabetes Denies family history of Anesthesia complication Bleeding disorder Social History Smoking and tobacco status: never smoked Alcohol intake: never Lives independently: Yes Household members: spouse Housing: House Marital status: Current occupational status: employed History of recent travel: No Vitals/I&O/Wt Last Vital Signs Temp 98.3 F 06/03/20 14:06 Pulse 63 06/03/20 18:00 Resp 24 H 06/03/20 18:00 BP 141/93 06/03/20 18:00 Pulse Ox 94 06/03/20 18:00 Weight last 48 hrs Weight 125.645 kg Physical Exam Narrative: EXAM NARRATIVE: Very pleasant elderly male Currently in semi-Spears position saturating well on 2 L supplemental oxygen Heart rate 50-58, no active chest pain No acute respiratory distress Generalized anasarca No facial swelling Abdominal wall edema no stigmata of chronic liver disease Lower extremity venous stasis dermatitis 1+ dorsalis pedis pulses bilaterally cold extremities with bluish tinge Right great toe diabetic ulcer seems to be healing no active drainage dry, tunneled Variable S1-S2 Bilateral breath sounds no active rhonchi or wheezing Abdomen distended, ascites, no right upper quadrant tenderness, on deep palpation there is left upper quadrant tenderness, bowel sounds are present Appropriate mood and affect No neurological deficit awake alert oriented x3 GCS 15, No digital clubbing Data : 06/03/20 13:25 06/03/20 13:25 A&P Assessment and plan (1) Left upper quadrant pain: Status: Acute (2) Cirrhosis: Status: Acute (3) Anasarca: Status: Acute (4) Chronic venous insufficiency: Status: Acute (5) Bradycardia: Status: Acute Additional A&P Information Left upper quadrant pain CT abdomen revealed perisplenic fluid collection with underlying ascites consistent with portal hypertension No fever, or signs of peritonitis no active nausea or vomiting, no signs of sepsis or hepatic encephalopathy, my suspicion for SBP is low at this time however would keep him on prophylactic ceftriaxone regimen Cholelithiasis without active signs of cholecystitis Decompensated liver cirrhosis Patient has underlying heart failure reduced action fraction which I think is a playing a role, I also have suspicion for alpha-1 antitrypsin enzyme deficiency because patient is endorsing history of COPD and he has never smoked in his life We will check alpha-1 antitrypsin level Hepatitis panel negative No porphyria cutaneous tarda No rheumatological disorder endorsed with the patient We will check SHENA Alk phos is not high No signs of Parkinson's, Asif's disease unlikely No recurrent transfusion He has high D-dimer, portal vein thrombosis should be ruled out with request hepatic Doppler I do believe he will benefit from a diagnostic ascitic tap, would hold Eliquis for now Would increase Lasix dose to IV 40 mg daily along spironolactone A. fib with bradycardia Never required any pacemaker in the past, his heart rate at baseline runs between 40-45 currently he is normotensive Monitor for now Hold Eliquis for diagnostic abd tap COPD Patient is endorsing using BiPAP at night and 1 to 2 L at home in the morning No acute exacerbation currently doing well on 2 L nasal cannula No sign of sepsis or pneumonia bilateral pleural effusion evident Sodium restricted diet, consistent carb diet Full code DVT prophylaxis: Would hold Eliquis for now for diagnostic ascitic tap, not a candidate to be on SCDs because of peripheral arterial disease and diabetic foot ulcers, kindly address Eliquis usage after diagnostic paracentesis Attestations Medical Necessity Statement*: Anticipating stay in the hospital cross more than 2 midnights for management of decompensated liver cirrhosis Time Spent in Patient Care: (>than 50% of time spent in counselling and/or direct pt care on unit) . 45mins Coding Level of Care Code Acute Corporate Strategy Associate for Chg Fwd Diagnoses Left upper quadrant pain R10.12 Cirrhosis K74.60 Anasarca R60.1 Chronic venous insufficiency I87.2 Bradycardia R00.1
[2020-06-03] MEDS: morphine 4 mg/mL SDV 1 mL 2 MG IVP (19:56)
[2020-06-03 21:34] LABS: Glucose Point of Care 197 mg/dL (70-110)
[2020-06-03] MEDS: cefTRIAXone 1,000 MG in sodium chloride 0.9% (plus) 50 ML 100 MG IV (22:12)
[2020-06-03 22:17] LABS: INR 1.59 (0.8-1.2)
[2020-06-03 22:18] LABS: Fibrinogen 560 mg/dL (174-498)
[2020-06-03] MEDS: oxyCODONE-APAP 5-325 mg Tablet 1 TAB PO (22:20)
[2020-06-03 22:40] LABS: Platelet Count 254 10^3/cmm (130-400)
[2020-06-04] VITALS (11 sets, daily range): BP systolic 142–158; BP diastolic 71–88; PULSE 44–73; RESP 16–22; TEMP 36.6–37.2; O2SAT 92–99
[2020-06-04 05:30] LABS: Basophils # 0.1 10^3/uL (0.0-0.1); Basophils % 0.7 %; Eosinophils # 0.2 10^3/uL (0.0-0.8); Eosinophils % 2.5 %; Hematocrit 35.9 % (42.0-52.0); Hemoglobin 11.3 g/dL (11.7-16.6); Lymphocytes # 1.6 10^3/uL (0.8-4.8); Lymphocytes % 23.7 %; Mean Corpuscular HGB Conc 31.5 g/dL (30.0-36.0); Mean Corpuscular Hemoglobin 26.9 pg (28.0-34.0); Mean Corpuscular Volume 85.5 fL (80-94); Mean Platelet Volume 10.6 fL (7.4-10.4); Monocytes % 14.4 %; Neutrophils # 3.89 10^3/uL (1.8-7.7); Neutrophils % 58.4 %; Nucleated Red Blood Cells % 0 %; Platelet Count 238 10^3/cmm (130-400); Red Cell Distribution Width 15.4 % (12.1-15.1); White Blood Count 6.7 10^3/uL (4.0-10.0)
[2020-06-04 05:47] LABS: Alanine Aminotransferase 13 U/L (0-41); Albumin Level 3.7 g/dL (3.5-5.2); Alkaline Phosphatase 123 IU/L (40-130); Anion Gap 15.2 (5-19); Aspartate Amino Transferase 25 U/L (0-40); Blood Urea Nitrogen 17 mg/dL (8-23); Calcium 8.7 mg/dL (8.5-10.5); Carbon Dioxide 28 mmol/L (22-29); Chloride 96 mmol/L (98-107); Globulin 3.6 g/dL (1.3-4.6); Glucose 81 mg/dL (65-115); Osmolality Calculated 281 mOsm/kg (285-295); Potassium 4.2 mmol/L (3.5-5.1); Sodium 135 mmol/L (136-145); Total Bilirubin 1.1 mg/dL (0.15-1.2); Total Protein 7.3 g/dL (6.6-8.7)
[2020-06-04 06:38] LABS: Glucose Point of Care 117 mg/dL (70-110)
--- NOTE | 2020-06-04 06:59 | PC.NURSE ---
Bedside report to Shea Adame RN at this time
[2020-06-04] MEDS: levothyroxine 100 mcg Tablet PO (07:48)
[2020-06-04] MEDS: losartan 50 mg Tablet PO (07:48)
[2020-06-04 08:29] LABS: Glucose Point of Care 121 mg/dL (70-110)
[2020-06-04] MEDS: gabapentin 400 mg Capsule 800 MG PO ×3 (09:16→21:21)
[2020-06-04] MEDS: pantoprazole DR 40 mg Tablet PO (09:16)
[2020-06-04] MEDS: potassium chloride ER 20 mEq Tablet PO (09:16)
[2020-06-04] MEDS: spironolactone 25 mg Tablet PO (09:16)
--- NOTE | 2020-06-04 09:53 | PC.CHAP ---
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 [] Patient/Family/Request visit [] Outpatient visit [] Follow-up visit [] Physician referral [] Code/Alert [x] Routine visit [] Staff referral [] Actively dying [] Patient sleeping [] Family support [] [] Out of room [] Palliative care [] [] Receiving care in room [] Pre-surgical visit [] Trauma [] Long length of stay [] ICU visit [] Other: Relational/Emotional Strength [x] Patient feels connected with others/family/visitors/staff [] Distress [] Loneliness/isolation [] Abandonment Spirituality of Patient [x] Person of Isabel [x] Attends Yazidi of their Isabel [x] Believes in Prayer [x] Reads Bible or Hinduism materials [] There are Spiritual issues to be addressed 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 Interventions [x] Prayer [x] Active listening [x] Non-anxious presence [x] Spiritual/emotional support [] Crisis/trauma care [] Spiritual counseling [] Bereavement support [] Provided bereavement packet [] Provided Bible/devotional materials [] Provided toy/stuffed animal, coloring book to patient or family member [] Provided Communion [] Anointing/[place] [] Salvation [x] Completed spiritual assessment [] Other: Impact on Illness or Injury [] Angry [] Fearful [] Anxious [] Often cries [] Exhaustion [] Unable to work [] Unable to attend yarsani [] Unable to walk/stand [] Unable to read [] Unable to drive [] Unable to eat/drink [] Unable to sleep [] Unable to be with family [] Patient intubated [] Other: Summary patient good Time spent with patient 10 min
[2020-06-04 11:45] LABS: Glucose Point of Care 226 mg/dL (70-110)
[2020-06-04 15:59] LABS: Glucose Point of Care 107 mg/dL (70-110)
--- NOTE | 2020-06-04 18:08 | ECG_ITS ---
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 Interpretive Statements NAME OF STUDY: LEXISCAN SESTAMIBI STRESS TEST INDICATION: REDUCED EJECTION FRACTION PROCEDURE: At the baseline, the EKG revealed atrial fibrillation with a slow ventricular response rate of 44 bpm. Nonspecific IVCD. The baseline blood pressure was 151/88 mm Hg with a heart rate of 44 beats/min. Lexiscan was infused over a period of 20 seconds. A total of 0.4 milligrams of Lexiscan was infused. The stress phase was continued for a total of 5 minutes. Heart rate at the end of the stress phase was 47 with a blood pressure 155/79. The EKG at the peak infusion revealed no significant changes. Sestamibi was injected 20 seconds after the Lexiscan infusion. Blood pressure at the end of the recovery phase was 145/73 with a heart rate of 50 per minute. CONCLUSION: 1. No significant EKG changes with the LexiScan infusion 2. No LexiScan induced chest pain or cardiac arrhythmia 3. Normal blood pressure and heart rate response 4. Sestamibi/sestamibi perfusion scan pending; see separate report. Electronically Signed On 06-05-2020 10:14:51 GAS APPLIANCE SERVICER by Luc Roque M.D. [id number]
--- NOTE | 2020-06-04 18:15 | P.PN_ITS ---
Subjective Subjective: Interval history: unable to get paracentesis as not enough fluid, echo with EF reduced to 35% with septal hypokinesia, changed since 10/2018, abdominal pain improved, tolerating Medications: Reviewed: Yes Vitals/I&O/Wt Last Vital Signs Temp 98.9 F 06/04/20 15:33 Pulse 73 06/04/20 15:33 Resp 17 06/04/20 15:33 BP 146/88 06/04/20 15:33 Pulse Ox 99 06/04/20 15:33 06/04/20 06/04/20 06/04/20 06:59 14:59 22:59 Intake Total 240 / 240 600 / 840 Balance 240 / 240 600 / 840 Weight last 48 hrs Weight 125.645 kg Physical Exam Narrative: EXAM NARRATIVE: GEN: Awake, alert and oriented, no acute distress CVS: S1S2 N RS: B/L basal coarse crackles + Abd: Soft, nt/nd , bs+ 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 Data : 06/04/20 04:30 06/04/20 04:30 A&P Assessment and plan (1) Left upper quadrant pain: Status: Acute (2) Cirrhosis: Status: Acute (3) Anasarca: Status: Acute (4) Chronic venous insufficiency: Status: Acute (5) Bradycardia: Status: Acute Additional A&P Information Left upper quadrant pain CT abdomen revealed perisplenic fluid collection with underlying ascites consistent with portal hypertension No fever, or signs of peritonitis no active nausea or vomiting, no signs of sepsis or hepatic encephalopathy, my suspicion for SBP is low at this time however would keep him on prophylactic ceftriaxone regimen Cholelithiasis without active signs of cholecystitis Decompensated liver cirrhosis Patient has underlying heart failure reduced action fraction which I think is a playing a role, EF reduced over previous echocariogram, stress test in am I also have suspicion for alpha-1 antitrypsin enzyme deficiency because patient is endorsing history of COPD and he has never smoked in his life We will check alpha-1 antitrypsin level Hepatitis panel negative No porphyria cutaneous tarda No rheumatological disorder endorsed with the patient We will check SHENA Alk phos is not high No signs of Parkinson's, Asif's disease unlikely No recurrent transfusion He has high D-dimer, portal vein thrombosis should be ruled out with request hepatic Doppler I do believe he will benefit from a diagnostic ascitic tap, would hold Eliquis for now Would increase Lasix dose to IV 40 mg daily along spironolactone A. fib with bradycardia Never required any pacemaker in the past, his heart rate at baseline runs between 40-45 currently he is normotensive Monitor for now Hold Eliquis for diagnostic abd tap COPD Patient is endorsing using BiPAP at night and 1 to 2 L at home in the morning No acute exacerbation currently doing well on 2 L nasal cannula No sign of sepsis or pneumonia bilateral pleural effusion evident Sodium restricted diet, consistent carb diet Full code DVT prophylaxis: Would hold Eliquis for now for diagnostic ascitic tap, not a candidate to be on SCDs because of peripheral arterial disease and diabetic foot ulcers, kindly address Eliquis usage after diagnostic paracentesis Attestations 2 Medical Necessity Statement*: stress test in am Coding Level of Care Code Acute Network Support Administrator for Gabrielleg Fwramiro Diagnoses Left upper quadrant pain R10.12 Cirrhosis K74.60 Anasarca R60.1 Chronic venous insufficiency I87.2 Bradycardia R00.1
[2020-06-04 20:36] LABS: Glucose Point of Care 151 mg/dL (70-110)
--- NOTE | 2020-06-04 20:51 | USCV_ITS ---
Refugio Amanda Age: 74 Gender: M : 1945 Exam Date: 06/04/2020 06:21 Ordering Phys: Katerine Padilla MD Technologist: Elsi Mccray Exam Location: [facility] [place] Indication: CHEST PAIN BP: 143 / 81 HR: 45 Rhythm: Sinus Technical Quality: Technically difficult study MEASUREMENTS (Male / Female) Normal Values 2D ECHO LV Diastolic Diameter PLAX 6.1 cm 4.2 - 5.9 / 3.9 - 5.3 cm LV Systolic Diameter PLAX 4.8 cm IVS Diastolic Thickness 1.3 cm 0.6 - 1.0 / 0.6 - 0.9 cm IVS Systolic Thickness 1.6 cm LVPW Diastolic Thickness 1.1 cm 0.6 - 1.0 / 0.6 - 0.9 cm LVPW Systolic Thickness 1.4 cm RV Chamber Size 4.0 cm LVOT Diameter 2.0 cm LV Ejection Fraction 2D Teich 40.7 % LV Ejection Fraction MOD 2C 25.2 % LV Ejection Fraction 2C AL 29.1 % LA Diameter 5.1 cm LA Width 5.5 cm LA Height 6.9 cm RA Width 5.5 cm RA Height 7.6 cm Aorta at Sinotubular Diameter 3.0 cm M-MODE LV Diastolic Diameter MM 6.4 cm 4.2 - 5.9 / 3.9 - 5.3 cm LV Systolic Diameter MM 4.6 cm LV Ejection Fraction MM Teich 52.9 % IVS Diastolic Thickness MM 1.3 cm 0.6 - 1.0 / 0.6 - 0.9 cm IVS Systolic Thickness MM 1.5 cm LVPW Diastolic Thickness MM 1.1 cm 0.6 - 1.0 / 0.6 - 0.9 cm LVPW Systolic Thickness MM 1.6 cm Aortic Annulus Diameter 3.8 cm LA Ao Ratio MM 1.4 MV E Point Septal Separation 1.4 cm DOPPLER AV Peak Velocity 136.0 cm/s LVOT Peak Velocity 92.7 cm/s AV Area Cont Eq vti 2.0 cm squared AV Area Cont Eq pk 2.2 cm squared MV Area PHT 7.1 cm squared Mitral E to A Ratio 2.3 MV E' Velocity 50.0 cm/s Mitral E to MV E' Ratio 9.7 Mitral E to LV E' Lateral Ratio 12.7 Mitral E to LV E' Septal Ratio 7.8 TR Peak Velocity 223.3 cm/s TR Peak Gradient 19.9 mmHg TV Peak E Velocity 93.0 cm/s Right Atrial Pressure 8.0 mmHg Pulmonary Artery Systolic Pressu 27.9 mmHg PV Peak Velocity 74.0 cm/s RV Acceleration Time 0.1 s RV Ejection Time 0.4 s RV AcT/ET 0.2 FINDINGS Left Ventricle Mildly dilated LV cavity. Diffuse hypokinesia of the left ventricle. The septum is thinned out and was found to have severe diffuse hypokinesia. Ejection fraction around 35 to 40% Right Ventricle Dilated right ventricle with moderately diminished ejection fraction. Right Atrium Moderately increased right atrial size. Left Atrium Moderately increased left atrial size. Mitral Valve Thickened mitral valve. Moderate eccentric mitral regurgitation with mild prolapse of the anterior mitral leaflet Aortic Valve Thickened aortic valve. Tricuspid Valve [id number] tricuspid valve regurgitation. Pulmonic Valve Mild pulmonary valve regurgitation. Pericardium No pericardial effusion. Aorta Normal aortic annulus size. CONCLUSIONS Mildly dilated LV cavity. Diffuse hypokinesia of the left ventricle. The septum is thinned out and was found to have severe diffuse hypokinesia. Ejection fraction around 35 to 40%. Dilated right ventricle with moderately diminished ejection fraction Moderate biatrial enlargementThickened mitral valve. Moderate eccentric mitral regurgitation with mild prolapse of the anterior mitral leaflet. Thickened aortic valve. [id number] tricuspid valve regurgitation. Mild pulmonary valve regurgitation. There is no pericardial effusion. There are no intracardiac masses. Compared to the previous study from 11/08/2018, the left ventricular ejection fraction has decreased. Dr Luc Roque MD [facility] (Electronically Signed) Final Date: 04 June 2020 08:30 S
--- NOTE | 2020-06-04 21:23 | US_ITS ---
WS: [id number] INDICATION: Ascites TECHNIQUE: Ultrasound 4 quadrant FINDINGS/IMPRESSION Four-quadrant ultrasound for ascites. Tiny amount of abdominal ascites. Not enough fluid for paracen tesis.
[2020-06-04] MEDS: FUROsemide 10 mg/mL SDV 4mL 40 MG IVP (21:34)
[2020-06-05] VITALS (13 sets, daily range): BP systolic 138–158; BP diastolic 73–85; PULSE 44–56; RESP 17–22; TEMP 36.3–36.9; O2SAT 90–100
[2020-06-05] MEDS: cefTRIAXone 1,000 MG in sodium chloride 0.9% (plus) 50 ML 100 MG IV ×2 (01:14→21:36)
[2020-06-05] MEDS: losartan 50 mg Tablet PO (06:25)
[2020-06-05] MEDS: levothyroxine 100 mcg Tablet PO (06:26)
[2020-06-05 06:47] LABS: Glucose Point of Care 113 mg/dL (70-110)
--- NOTE | 2020-06-05 07:55 | SUR.PREOP ---
Patient reports no pain or discomfort prior to the start of the procedure.
[2020-06-05] MEDS: regadenoson 0.4 Mg/5 ml Syringe IVP (08:05)
[2020-06-05] MEDS: spironolactone 25 mg Tablet PO (09:26)
[2020-06-05] MEDS: potassium chloride ER 20 mEq Tablet PO ×2 (09:26→18:19)
[2020-06-05] MEDS: gabapentin 400 mg Capsule 800 MG PO ×3 (09:26→20:47)
[2020-06-05] MEDS: pantoprazole DR 40 mg Tablet PO (09:26)
[2020-06-05 11:07] LABS: Glucose Point of Care 174 mg/dL (70-110)
[2020-06-05 11:57] LABS: Alpha 1 Antitrypsin 231 mg/dL (83-199)
--- NOTE | 2020-06-05 15:41 | PC.RESP ---
PULMONARY REHAB INFORMATION SENT TO PATIENT.
--- NOTE | 2020-06-05 17:23 | P.CONIM_ITS ---
Providers/Reason For Consult Consulting Physican/Specialty*: NIGEL Roque MD/cardiology Reason for Consult*: Patient with abnormal myocardial perfusion imaging/cardiomyopathy/atrial fibrillation Attending Physician: Shani Galloway MD Primary Care Provider: Mary Lou Anaya MD History of Present Illness History of Present Illness Refugio Amanda is a 74 year old male, is admitted to the hospital through the emergency room where he presented with complaints of left upper quadrant pain for 3 days. His echocardiogram revealed diffuse hypokinesia left ventricle with diminished ejection fraction of around 40%. This was a significant drop in the ejection fraction from the previous echocardiogram. He also had some features of congestive heart failure. He underwent a myocardial perfusion imaging today which revealed areas of fixed defects and some small areas of reversible defects. Cardiology consult is requested for further cardiac evaluation recommendations. This patient is known to have chronic atrial fibrillation and asymptomatic bradycardia. He is on long-term oral anticoagulation. He also is known to have high blood pressure, dyslipidemia and peripheral artery disease. He is known to have a longstanding history of bradycardia with no specific symptoms. He denies any chest pain or palpitations. Started having the left upper quadrant pain, 3 days prior to the hospital admission. The pain was more or less acute in onset. It was getting worse with inspiration and also with movements. He did not have any fever or chills. No cough. No dysuria. No back pain. He also was having significant shortness of breath with activities. Even with minimal movements, he was getting extremely short of breath. He did not want to come to the hospital emergency room with these symptoms since he had a scheduled appointment with me in the clinic on Tuesday. In the clinic, he was complaining of severe pain in the left upper quadrant associated with shortness of breath. So for this reason, he was subsequently evaluated in the emergency room. Review of Systems Narrative: CONSTITUTIONAL: No fever or chills. EYES: No blurring of vision or other visual disturbances lately. ENT: No hoarseness of voice, auditory disturbances or sore throat. CARDIOVASCULAR: As mentioned above. RESPIRATORY: Shortness of breath as mentioned above. GASTROINTESTINAL: Left upper quadrant pain as mentioned above. GENITOURINARY: No dysuria or hematuria. INTEGUMENTARY: No skin rashes or history of skin cancer. NEURO: No transient ischemic attacks or amaurosis. PSYCHIATRIC: No history of psychosis or major depression. HEMATOLOGIC: No bleeding disorders or significant anemia. ENDOCRINE: No history of polyuria or polydipsia. MUSCULOSKELETAL: No recent joint pain or swelling. ALLERGY/IMMUNOLOGY: As mentioned above. Meds/Allergies Home Medications and Allergies Home Medications Medication Instructions Recorded Confirmed Last Taken Type apixaban 5 mg tablet 5 mg PO BID 04/09/19 06/04/20 06/03/20 09:30 History cinnamon bark 500 mg capsule 500 mg PO BID cap 04/09/19 06/04/20 09/23/19 08:00 History furosemide 20 mg tablet 20 mg PO BID 04/09/19 06/04/20 06/02/20 History gabapentin 800 mg tablet 800 mg PO TID 04/09/19 06/04/20 06/03/20 09:30 History glipizide 10 mg tablet 20 mg PO BID 04/09/19 06/04/20 09/23/19 20:00 History levothyroxine 100 mcg capsule 100 mcg PO QAM cap 04/09/19 06/04/20 06/03/20 History losartan 100 mg tablet 100 mg PO QAM tab 04/09/19 06/04/20 06/03/20 History metformin 850 mg tablet 850 mg PO TID 04/09/19 06/04/20 06/03/20 09:30 History omeprazole 20 mg capsule,delayed 20 mg PO BID 04/09/19 06/04/20 06/03/20 09:30 History release spironolactone 25 mg tablet 25 mg PO DAILY tab 04/09/19 06/04/20 09/23/19 20:00 History vitamin B complex 1 cap PO PRN cap 04/09/19 06/04/20 09/23/19 08:00 History vitamin E (dl, acetate) 450 mg 1,000 unit PO PRN cap 04/09/19 06/04/20 09/23/19 08:00 History (1,000 unit) capsule pentoxifylline 400 mg 400 mg PO TID 04/12/19 06/04/20 06/03/20 09:30 History tablet,extended release alogliptin 25 mg tablet 25 mg PO QAM 11/29/19 06/04/20 06/03/20 History oxycodone-acetaminophen 5 mg-325 1 tab PO BID PRN 30 Days #45 tab 04/07/20 06/04/20 Unknown Rx mg tablet Fish Oil 1 cap PO BID 06/03/20 06/04/20 Unknown History Allergies Allergy/AdvReac Type Severity Reaction Status Date / Time lisinopril Allergy Unknown Verified 06/03/20 15:00 Current Medications Current Medications Generic Name Dose Route Start Last Admin Trade Name Freq PRN Reason Stop Dose Admin Furosemide 40 mg 06/03/20 20:51 06/04/20 21:34 Furosemide 10 Mg/Ml Sdv 4ml IVP 40 mg Q24H JAIR Administration Gabapentin 800 mg 06/04/20 09:00 06/05/20 14:46 Gabapentin 400 Mg Capsule PO 800 mg TID JAIR Administration Ceftriaxone Sodium 1,000 mg/ 50 mls @ 100 mls/hr 06/03/20 22:00 06/05/20 01:49 Sodium Chloride IV Infused Q24H JAIR Infusion Protocol Insulin Aspart 0 unit 06/03/20 21:00 06/05/20 11:18 Insulin Aspart 100 Unit/1 Ml SUBCUT 4 unit WM&BEDTIME JAIR Administration Protocol Levothyroxine Sodium 100 mcg 06/04/20 06:00 06/05/20 06:26 Levothyroxine 100 Mcg Tablet PO 100 mcg QAM JAIR Administration Losartan Potassium 50 mg 06/04/20 06:00 06/05/20 06:25 Losartan 50 Mg Tablet PO 50 mg QAM JAIR Administration Oxycodone/Acetaminophen 1 tab 06/03/20 20:51 06/03/20 22:20 Oxycodone-Apap 5-325 Mg Tablet PO 1 tab BID PRN Administration pain Pantoprazole Sodium 40 mg 06/04/20 09:00 06/05/20 09:[address] 40 Mg Tablet PO 40 mg DAILY JAIR Administration Potassium Chloride 20 meq 06/04/20 09:00 06/05/20 09:26 Potassium Chloride Er 20 Meq Tablet PO 20 meq DAILY JAIR Administration Spironolactone 25 mg 06/04/20 09:00 06/05/20 09:26 Spironolactone 25 Mg Tablet PO 25 mg DAILY JAIR Administration PFSH Acute PFSH: Medical History Bradycardia Patient has a longstanding history of atrial fibrillation and bradycardia CHF (congestive heart failure) Chronic atrial fibrillation Patient is on long-term oral anticoagulation. He is taking Eliquis. Chronic venous insufficiency COPD (chronic obstructive pulmonary disease) Diabetes Diverticulosis Hyperlipidemia Hypertension retirement (current) use of opiate analgesic Non-healing ulcer Osteomyelitis Right toe status post debridement and bone biopsy, [facility] 2018 PAD (peripheral artery disease) Patient has two-vessel runoff on the left side and three-vessel runoff on the right side. He has mild to moderate diffuse peripheral arterial disease. Pain management contract signed Sleep apnea SOB (shortness of breath) Patient is known to have COPD Varicose veins of bilateral lower extremities with other complications Surgical History History of hip surgery Hx of toe surgery Hx of tonsillectomy Family History Other CAD (coronary artery disease) Cancer Diabetes Denies family history of Anesthesia complication Bleeding disorder Social History Smoking and tobacco status: never smoked Alcohol intake: never Lives independently: Yes Household members: spouse Housing: House Marital status: Current occupational status: employed History of recent travel: No Vitals/I&O/Wt Last Vital Signs Temp 97.8 F 06/05/20 15:19 Pulse 44 L 06/05/20 15:19 Resp 18 06/05/20 15:19 BP 147/85 06/05/20 15:19 Pulse Ox 98 06/05/20 15:19 06/05/20 06/05/20 06/05/20 06:59 14:59 22:59 Intake Total 530 / 1370 720 / 720 Balance 530 / 1370 720 / 720 Physical Exam Narrative: EXAM NARRATIVE: GENERAL: The patient is alert and oriented times three. Not in any acute distress. Obese HEENT: Minimal pallor, no icterus or lymphadenopathy. The pupils are reactant to light. Oral cavity: There are no mucous membrane lesions. Funduscopic examination: Fundus is not visualized. NECK: Trachea appears to be central. No masses noted. No JVD or thyromegaly appreciated. No carotid bruit. RESPIRATORY: Chest is symmetrical. No intercostals muscle retraction or any accessory muscle activation. There is no chest wall tenderness. Breath sounds are heard bilaterally. No rales or rhonchi heard. No evidence of any consolidation. BREASTS: Deferred. HEART: The PMI could not be palpated. No other palpable precordial events. First heart sound is variable. Second heart sounds normal. No S3. Short systolic murmur in the left sternal border. No diastolic murmurs. No pericardial rub. ABDOMEN: Abdomen is slightly distended. Obese. Moderate tenderness in the left upper quadrant area. Bowel sounds are normally heard. : Deferred. RECTAL: Deferred. LYMPHATIC: No lymphadenopathy noted in the neck or groin. EXTREMITIES: Features of chronic venous stasis in the lower extremities. Peripheral pulses are palpable but weak bilaterally. MUSCULOSKELETAL: No acute joint deformities or swelling. SKIN: There are no significant scars or skin rash noted. NEUROPSYCHIATRIC: The patient is alert and oriented x3. Appears to be in a good mood. The higher functions are grossly within normal limits. No tremors or rigidity noted. Data Labs: Other Labs: Laboratory Last Values WBC 6.7 10^3/uL (4.0- 10.0) 06/04/20 04:30 RBC 4.20 10^6/uL (4.1 -5.3) 06/04/20 04:30 Hgb 11.3 g/dL (11.7-1 6.6) L 06/04/20 04:30 Hct 35.9 % (42.0-52.0 ) L 06/04/20 04:30 MCV 85.5 fL (80-94) 06/04/20 04:30 MCH 26.9 pg (28.0-34. 0) L 06/04/20 04:30 MCHC 31.5 g/dL (30.0-3 6.0) 06/04/20 04:30 RDW 15.4 % (12.1-15.1 ) H 06/04/20 04:30 Plt Count 238 10^3/cmm (130 -400) 06/04/20 04:30 MPV 10.6 fL (7.4-10.4 ) H 06/04/20 04:30 Neut % (Auto) 58.4 % 06/04/20 04:30 Lymph % (Auto) 23.7 % 06/04/20 04:30 [place] % (Auto) 14.4 % 06/04/20 04:30 Eos % (Auto) 2.5 % 06/04/20 04:30 Baso % (Auto) 0.7 % 06/04/20 04:30 Neut # (Auto) 3.89 10^3/uL (1.8 -7.7) 06/04/20 04:30 Lymph # (Auto) 1.6 10^3/uL (0.8- 4.8) 06/04/20 04:30 [place] # (Auto) 1.0 10^3/uL (0.2- 0.9) H 06/04/20 04:30 Eos # (Auto) 0.2 10^3/uL (0.0- 0.8) 06/04/20 04:30 Baso # (Auto) 0.1 10^3/uL (0.0- 0.1) 06/04/20 04:30 Nucleated RBC % (a uto) 0 % 06/04/20 04:30 Nucleated RBCs # 0.0 /100WBC 06/04/20 04:30 PT 19.50 SECONDS (12 .1-14.9) H 06/03/20 21:35 INR 1.59 (0.8-1.2) H 06/03/20 21:35 APTT 43.0 SECONDS (23. 9-36.7) H 06/03/20 21:35 Fibrinogen 560 mg/dL (174-49 8) H 06/03/20 21:35 D-Dimer 4.15 ug/mIFEU (0- 0.59) H 06/03/20 13:25 Sodium 135 mmol/L (136-1 45) L 06/04/20 04:30 Potassium 4.2 mmol/L (3.5-5 .1) 06/04/20 04:30 Chloride 96 mmol/L (98-107 ) L 06/04/20 04:30 Carbon Dioxide 28 mmol/L (22-29) 06/04/20 04:30 Anion Gap 15.2 (5-19) 06/04/20 04:30 BUN 17 mg/dL (8-23) 06/04/20 04:30 Creatinine 1.0 mg/dL (0.7-1. 2) 06/04/20 04:30 GFR Calculation Not Reportable 06/04/20 04:30 Glucose 81 mg/dL (65-115) 06/04/20 04:30 POC Glucose 174 mg/dL (70-110 ) H 06/05/20 11:05 Calculated Osmolal ity 281 mOsm/kg (285- 295) L 06/04/20 04:30 Lactate 1.9 mmol/L (0.5-2 .2) 06/03/20 13:25 Calcium 8.7 mg/dL (8.5-10 .5) 06/04/20 04:30 Total Bilirubin 1.1 mg/dL (0.15-1 .2) 06/04/20 04:30 AST 25 U/L (0-40) 06/04/20 04:30 ALT 13 U/L (0-41) 06/04/20 04:30 Alkaline Phosphata se 123 IU/L (40-130) 06/04/20 04:30 Troponin T Baselin e 51 ng/L (0-15) H 06/03/20 13:25 Troponin T 120 Min alturas 48.98 ng/L (0-15) H 06/03/20 15:27 Delta Troponin T -2.02 ABS# (0-10) L 06/03/20 15:27 Troponin T Hi Sens 6Hr 50.30 ng/L (0-15) H 06/03/20 19:33 Troponin T Hi Sens 6Hr Delta -0.70 ng/L (0-12) L 06/03/20 19:33 NT-Pro-B Natriuret Pep 1472 pg/mL (0-450 ) H 06/03/20 13:25 Total Protein 7.3 g/dL (6.6-8.7 ) 06/04/20 04:30 Albumin 3.7 g/dL (3.5-5.2 ) 06/04/20 04:30 Globulin 3.6 g/dL (1.3-4.6 ) 06/04/20 04:30 Weqta-0-Ilvszuoevh n 231 mg/dL (83-199 ) H 06/03/20 21:35 Lipase 33 U/L (13-60) 06/03/20 13:25 Urine Color Yellow (Yellow) 06/03/20 14:22 Urine Appearance Clear (CLEAR) 06/03/20 14:22 Urine pH 6.5 (5-7) 06/03/20 14:22 Ur Specific Gravit y 1.015 (1.005-1.0 30) 06/03/20 14:22 Urine Protein Trace (Negative) 06/03/20 14:22 Urine Glucose (UA) Norm (Normal) 06/03/20 14:22 Urine Ketones Negative (Negati ve) 06/03/20 14:22 Urine Blood 3+ (Negative) H 06/03/20 14:22 Urine Nitrate Negative (Negati ve) 06/03/20 14:22 Urine Bilirubin 1+ (Negative) H 06/03/20 14:22 Urine Urobilinogen 1 mg/dL (Negative ) H 06/03/20 14:22 Ur Leukocyte Nasima ase Negative (Negati ve) 06/03/20 14:22 Urine RBC 25-40 /hpf (0-2) H 06/03/20 14:22 Urine WBC 0-4 /hpf (0-5) H 06/03/20 14:22 Ur Squamous Epith Cells 0-4 /hpf (0-5) H 06/03/20 14:22 Amorphous Sediment Not Reportable 06/03/20 14:22 Urine Bacteria 2+ /hpf (NONE) H 06/03/20 14:22 Hepatitis A IgM Ab Non-reactive (No nreactive) 06/03/20 15:27 Hep Bs Antigen Non-reactive (No nreactive) 06/03/20 15:27 Hep B Core IgM Ab Non-reactive (No nreactive) 06/03/20 15:27 Hepatitis C Antibo dy Non-reactive (No nreactive) 06/03/20 15:27 SARS-CoV-2 Ag (Rap id) Negative (Negati ve) 06/03/20 17:48 Micro: Micro: Microbiology 06/03/20 14:22 Urine Culture - Pr eliminary Urine,Clean Catch A&P Assessment and plan (1) Abnormal nuclear stress test: The implications of the abnormal myocardial perfusion imaging were discussed with the patient in detail. The areas of ischemia appears to be small. In order to further evaluate the coronary status, he requires a cardiac catheterization. Since the patient denies any chest pain or other specific cardiac symptoms, it may be appropriate to consider this after optimizing the treatment for heart failure/anasarca. This was discussed with the patient detail which is understood well. Status: Acute (2) SOB (shortness of breath): The patient's shortness of breath could be multifactorial. Acute on chronic diastolic heart failure could be a significant contributing factor. Morbid obesity, chronic pain, COPD etc. also may be playing a role. Because of the anasarca, I will be more aggressive with the diuretic treatment. I may go ahead and give him Lasix 60 mg every 8 hours x3 along with potassium 20 mg p.o. every 6 hours x4. His clinical response will be closely monitored. Status: Acute (3) Chronic atrial fibrillation: Patient is with a controlled ventricular response rate. His heart rate is mostly in the low 50s in the upper 40s. May not require any specific intervention at this point. Status: Acute (4) Bradycardia: Patient may require a permanent pacer implantation, sometime down the line. As of now, the bradyarrhythmia may not be a contributing factor for his symptomatology. However even after appropriate diuresis, if he continues to have exertional dyspnea, may consider further cardiac evaluation. Status: Acute (5) Left upper quadrant pain: The etiology is unclear. SBP is being considered. Patient has some features of portal hypertension. Work-up and management as per the primary Status: Acute (6) Anasarca: IV diuretic management as mentioned above Status: Acute (7) Hyperlipidemia: May Continue on the current medications Status: Acute Qualifiers: Hyperlipidemia type: mixed hyperlipidemia Qualified Code(s): E78.2 - Mixed hyperlipidemia (8) Hypertension: Her pressures mildly elevated. Need to optimize the antihypertensive medications. Status: Acute Qualifiers: Hypertension type: essential hypertension Qualified Code(s): I10 - Essential (primary) hypertension Additional A&P Information After reviewing the above and also based on the patient's the clinical progress, further recommendations will be made. Thank you for the opportunity to evaluate this patient and make these recommendations Consult Attestations Medical Necessity Statement: Patient requires continued hospital stay for close monitoring and further management Coding Level of Care Code Acute Leather Etcher for g Fwd History Detailed Exam Detailed Medical Decision Making High Complexity Diagnoses Abnormal nuclear stress test R94.39 SOB (shortness of breath) R06.02 Chronic atrial fibrillation I48.20 Bradycardia R00.1 Left upper quadrant pain R10.12 Anasarca R60.1 Hyperlipidemia E78.2 Hyperlipidemia type: mixed hyperlipidemia Hypertension I10 Hypertension type: essential hypertension Time Spent (min) 55
[2020-06-05 17:34] LABS: Glucose Point of Care 164 mg/dL (70-110)
--- NOTE | 2020-06-05 18:08 | NMCV_ITS ---
NM maury perf SPECT r/s* [id number] Refugio Amanda Age: 74 Gender: M : 1945 Exam Date: 06/05/2020 07:21 Ordering Phys: Shani Galloway MD Technologist: YAMILET Dumont Exam Location: [facility] Indications: CHEST PAIN STRESS TEST Please see separate stress test report in [facility] for full findings IMAGE PROTOCOL Rest/Stress 1 Lexiscan Day Radiopharmaceutical Dose (mCi) Administration Site Administered by Rest: Tc-99m 10.9 IV YAMILET Fountain Sestamibi Stress:Tc-99m 32.7 IV YAMILET Fountain Sestamibi Rest: 05-Jun-2020 60 Discovery 630 Stress: 05-Jun-2020 30 Discovery 630 0.4mg Lexiscan. Supine position only as patient was unable to lay prone. SPECT RESULTS Technical Quality: Excellent Raw Data Analysis: Normal Image Corrections: No attenuation or motion correction applied Summed Stress Score: 15 Summed Rest Score: 10 Summed Difference Score: 5 PERFUSION FINDINGS Moderate to large area of severely decreases uptake in the basal mid and apical inferior, basal and mid inferolateral and apical lateral region with some subtle areas of reversibility in the basal regions. Slightly decreased aseptic also was noted in the basal and mid anterolateral and apical region, with some reversibility. FUNCTIONAL RESULTS (calculated via Gated SPECT) Stress Image LV EF (%): 60 Stress EDV (mL):231 TID: 0.97 Stress ESV (mL):92 FUNCTIONAL FINDINGS: Segmental wall motion analysis revealing diffuse hypokinesia of the septum. IMPRESSIONS 1. Myocardial perfusion imaging revealing moderate large areas of persistent decreased tracer uptake in the inferior, inferolateral, anterolateral and apical regions with subtle areas of reversibility in the basal and mid regions, may suggest myocardial scarring mostly in the distribution of the right coronary artery and circumflex artery with very small areas of darron- infarction ischemia. 2. Normal LV ejection fraction of 60%. 3. Segmental wall motion analysis revealing diffuse hypokinesia of the septum. 4. Mildly dilated LV cavity. No similar previous studies are available for comparison Dr Luc Roque MD [facility] (Electronically Signed) Final Date: 05 June 2020 11:18 S
[2020-06-05] MEDS: FUROsemide 10 mg/mL SDV 10mL 60 MG IVP (18:18)
--- NOTE | 2020-06-05 19:32 | P.PN_ITS ---
Subjective Subjective: Interval history: Patient underwent stress test this morning which showed Which showed in the inferior inferolateral and anterolateral apical regions with several areas of reversibility in the basal and mid regions which may suggest myocardial scarring. Very small areas of darron-infarct ischemia. LVEF 60%. Diffuse hypokinesia of the septum. Mildly dilated LV cavity. C ardiology consulted with these findings. Intake and output not accurately charted as patient is voiding in a urinal. Lower extremity edema remains unchanged today. States abdominal pain is improving. Tolerating a diet. Medications: Reviewed: Yes Vitals/I&O/Wt Last Vital Signs Temp 97.8 F 06/05/20 15:19 Pulse 44 L 06/05/20 15:19 Resp 18 06/05/20 15:19 BP 147/85 06/05/20 15:19 Pulse Ox 98 06/05/20 15:19 06/05/20 06/05/20 06/05/20 06:59 14:59 22:59 Intake Total 530 / 1370 720 / 720 120 / 840 Balance 530 / 1370 720 / 720 120 / 840 Physical Exam Narrative: EXAM NARRATIVE: GEN: Awake, alert and oriented, no acute distress CVS: S1S2 N RS: CTA B/L except crackles at right lung base Abd: Soft, nt/nd , bs+ ADVANCED PRACTICE NURSE: no focal neuro deficits Data : 06/04/20 04:30 06/04/20 04:30 Micro: Microbiology 06/03/20 14:22 Urine Culture - Preliminary Urine,Clean Catch A&P Assessment and plan (1) Left upper quadrant pain: Status: Acute (2) Cirrhosis: Status: Acute (3) Anasarca: Status: Acute (4) Chronic venous insufficiency: Status: Acute (5) Bradycardia: Status: Acute (6) Abnormal nuclear stress test: Status: Acute (7) Acute exacerbation of CHF (congestive heart failure): Status: Acute Additional A&P Information # Acute on chronic diastolic heart failure Appreciate cardiology recommendations Increase Lasix to 60 mg IV every 8 along with concomitant potassium supplementation. Measure urine output closely. Measure daily weights. Patient has generalized anasarca including fairly hepatic and perisplenic as cites which is currently not amenable to paracentesis. #Abnormal stress test Appreciate cardiology recommendations Small areas of reversible ischemia Will likely need further evaluation as an outpatient. Patient currently denies any complains of chest pain. There are no acute ST-T wave changes on his EKG. #Left upper quadrant pain CT abdomen revealed perisplenic fluid collection with underlying ascites consistent with portal hypertension Overall unclear etiology of left upper quadrant pain, possible that ascites may be contributing here, unable to get paracentesis as not enough fluid to safely drain at this present time. Currently tolerating her diet, abdominal pain is improved. suspicion for SBP is low at this time, however since unable to get paracentesis, will treat with empiric 5-day regimen of ceftriaxone Cholelithiasis without active signs of cholecystitis #Liver cirrhosis Unclear etiology, however may be related to congestive hepatopathy due to heart failure Hepatitis panel negative No signs of Parkinson's, Asif's disease unlikely No signs of portal vein thrombosis on abdominal ultrasound #A. fib with bradycardia Monitor for now, not symptomatic from the bradycardia. May need a pacemaker down the line Resume Eliquis # COPD Patient is endorsing using BiPAP at night and 1 to 2 L at home in the morning No acute exacerbation Sodium restricted diet, consistent carb diet Full code DVT prophylaxis: Obi Attestations Medical Necessity Statement*: Ongoing need for IV diuresis, close monitoring of EDDIE's for CHF exacerbation Coding Level of Care Code Acute Supervisor Ditching for Chg Fwd Diagnoses Left upper quadrant pain R10.12 Cirrhosis K74.60 Anasarca R60.1 Chronic venous insufficiency I87.2 Bradycardia R00.1 Abnormal nuclear stress test R94.39 Acute exacerbation of CHF (congestive heart failure) I50.9
[2020-06-05 20:57] LABS: Glucose Point of Care 172 mg/dL (70-110)
[2020-06-06] VITALS (16 sets, daily range): BP systolic 113–156; BP diastolic 56–85; PULSE 39–77; RESP 17–20; TEMP 36.4–37.2; O2SAT 91–98
[2020-06-06] MEDS: potassium chloride ER 20 mEq Tablet PO ×4 (05:17→23:14)
[2020-06-06] MEDS: levothyroxine 100 mcg Tablet PO (05:19)
[2020-06-06] MEDS: losartan 50 mg Tablet PO (05:19)
[2020-06-06 05:34] LABS: Basophils % 0.9 %; Eosinophils # 0.2 10^3/uL (0.0-0.8); Eosinophils % 4.2 %; Hematocrit 35.3 % (42.0-52.0); Lymphocytes # 1.1 10^3/uL (0.8-4.8); Lymphocytes % 25.9 %; Mean Corpuscular HGB Conc 31.2 g/dL (30.0-36.0); Mean Corpuscular Hemoglobin 26.4 pg (28.0-34.0); Mean Corpuscular Volume 84.7 fL (80-94); Mean Platelet Volume 10.3 fL (7.4-10.4); Monocytes # 0.5 10^3/uL (0.2-0.9); Monocytes % 10.8 %; Neutrophils # 2.44 10^3/uL (1.8-7.7); Neutrophils % 57.7 %; Nucleated Red Blood Cells % 0 %; Platelet Count 244 10^3/cmm (130-400); Red Blood Count 4.17 10^6/uL (4.1-5.3); Red Cell Distribution Width 15.3 % (12.1-15.1); White Blood Count 4.2 10^3/uL (4.0-10.0)
[2020-06-06 05:48] LABS: Alanine Aminotransferase 16 U/L (0-41); Albumin Level 3.5 g/dL (3.5-5.2); Alkaline Phosphatase 113 IU/L (40-130); Anion Gap 17.3 (5-19); Aspartate Amino Transferase 30 U/L (0-40); Blood Urea Nitrogen 24 mg/dL (8-23); Calcium 8.7 mg/dL (8.5-10.5); Carbon Dioxide 29 mmol/L (22-29); Chloride 92 mmol/L (98-107); Globulin 3.5 g/dL (1.3-4.6); Glucose 97 mg/dL (65-115); Osmolality Calculated 282 mOsm/kg (285-295); Potassium 4.3 mmol/L (3.5-5.1); Sodium 134 mmol/L (136-145); Total Bilirubin 0.8 mg/dL (0.15-1.2)
[2020-06-06] MEDS: FUROsemide 10 mg/mL SDV 10mL 60 MG IVP ×3 (06:32→23:13)
[2020-06-06 06:48] LABS: Glucose Point of Care 108 mg/dL (70-110)
--- NOTE | 2020-06-06 09:08 | PC.SOCIAL ---
IMM Update Pg.2 of IMM Updated and reviewed with patient who verbalized understanding. Copy provided to patient.
--- NOTE | 2020-06-06 10:10 | PM.PN ---
Subjective Subjective: Interval history: The patient is feeling better with the higher dose of Lasix. Seems to be diuresing fairly well. He still has significant shortness of breath. Abdominal pain is less severe Medications: Reviewed: Yes Medication Review Details: Current Medications Apixaban (Apixaban 5 Mg Tablet) 5 mg PO BID [facility] Dextrose (Dextrose 50% Syringe 50 Ml) 25 ml IVP ONCE PRN; Protocol PRN Reason: hypoglycemia protocol Dextrose (Dextrose 50% Syringe 50 Ml) 50 ml IVP PRN PRN; Protocol PRN Reason: hypoglycemia protocol Furosemide (Furosemide 10 Mg/Ml Sdv 10ml) 60 mg IVP Q8H [facility] Last Admin: 06/06/20 06:32 Dose: 60 mg Documented by: Gabapentin (Gabapentin 400 Mg Capsule) 800 mg PO TID [facility] Last Admin: 06/05/20 20:47 Dose: 800 mg Documented by: Glucagon (Glucagon 1 Mg/Ml Inj 1 Ml) 1 mg IM ONCE PRN; Protocol PRN Reason: Adult Acute Hypoglycemia Prot. Dextrose (D5w) 500 mls @ 100 mls/hr IV ONCE PRN; Protocol PRN Reason: Adult Acute Hypoglycemia Prot Ceftriaxone Sodium 1,000 mg/ (Sodium Chloride) 50 mls @ 100 mls/hr IV Q24H [facility]; Protocol Last Infusion: 06/06/20 05:22 Dose: Infused Documented by: Insulin Aspart (Insulin Aspart 100 Unit/1 Ml) 0 unit SUBCUT WM&BEDTIME [facility]; Protocol Last Admin: 06/06/20 08:02 Dose: Not Given Documented by: Levothyroxine Sodium (Levothyroxine 100 Mcg Tablet) 100 mcg PO QAM [facility] Last Admin: 06/06/20 05:19 Dose: 100 mcg Documented by: Losartan Potassium (Losartan 50 Mg Tablet) 50 mg PO QAM [facility] Last Admin: 06/06/20 05:19 Dose: 50 mg Documented by: Ondansetron HCl (Ondansetron 2 Mg/Ml Sdv 2 Ml) 4 mg IVP Q2M PRN PRN Reason: NAUSEA Oxycodone/Acetaminophen (Oxycodone-Apap 5-325 Mg Tablet) 1 tab PO BID PRN PRN Reason: pain Last Admin: 06/03/20 22:20 Dose: 1 tab Documented by: Pantoprazole Sodium (Pantoprazole Dr 40 Mg Tablet) 40 mg PO DAILY [facility] Last Admin: 06/05/20 09:26 Dose: 40 mg Documented by: Potassium Chloride (Potassium Chloride Er 20 Meq Tablet) 20 meq PO Q6H [facility] Last Admin: 06/06/20 05:17 Dose: 20 meq Documented by: Spironolactone (Spironolactone 25 Mg Tablet) 25 mg PO DAILY [facility] Last Admin: 06/05/20 09:26 Dose: 25 mg Documented by: Vitals/I&O/Wt Last Vital Signs Temp 97.9 F 06/06/20 07:47 Pulse 52 L 06/06/20 08:27 Resp 18 06/06/20 07:47 BP 145/77 06/06/20 07:47 Pulse Ox 97 06/06/20 08:27 06/05/20 06/06/20 06/06/20 22:59 06:59 14:59 Intake Total 120 / 840 50 / 890 240 / 240 Output Total 0 / 0 0 / 0 Balance 120 / 840 50 / 890 240 / 240 Weight last 48 hrs Weight 286 lb 9 oz Physical Exam Narrative: EXAM NARRATIVE: GENERAL: The patient is alert and oriented times three. Not in any acute distress. Obese. HEENT: Minimal pallor, no icterus or lymphadenopathy. The pupils are reactant to light. Oral cavity: There are no mucous membrane lesions. NECK: Trachea appears to be central. No masses noted. No JVD or thyromegaly appreciated. No carotid bruit. RESPIRATORY: Chest is symmetrical. No intercostals muscle retraction or any accessory muscle activation. There is no chest wall tenderness. Breath sounds are heard bilaterally. No rales or rhonchi heard. No evidence of any consolidation. BREASTS: Deferred. HEART: The PMI could not be palpated. No other palpable precordial events. First heart sound is variable. Second heart sounds normal. No S3. Short systolic murmur in the left sternal border. No diastolic murmurs. No pericardial rub. ABDOMEN: Abdomen is slightly distended. Obese. Minimal tenderness in the left upper quadrant area. Bowel sounds are normally heard. : Deferred. RECTAL: Deferred. LYMPHATIC: No lymphadenopathy noted in the neck or groin. EXTREMITIES: Features of chronic venous stasis in the lower extremities. Peripheral pulses are palpable but weak bilaterally. 1-2+ edema MUSCULOSKELETAL: No acute joint deformities or swelling. SKIN: There are no significant scars or skin rash noted. NEUROPSYCHIATRIC: The patient is alert and oriented x3. Appears to be in a good mood. The higher functions are grossly within normal limits. No tremors or rigidity noted. Data : 06/06/20 04:53 06/06/20 04:53 Other Labs: Laboratory Last Values WBC 4.2 10^3/uL (4.0-10.0) 06/06/20 04:53 RBC 4.17 10^6/uL (4.1-5.3) 06/06/20 04:53 Hgb 11.0 g/dL (11.7-16.6) L 06/06/20 04:53 Hct 35.3 % (42.0-52.0) L 06/06/20 04:53 MCV 84.7 fL (80-94) 06/06/20 04:53 MCH 26.4 pg (28.0-34.0) L 06/06/20 04:53 MCHC 31.2 g/dL (30.0-36.0) 06/06/20 04:53 RDW 15.3 % (12.1-15.1) H 06/06/20 04:53 Plt Count 244 10^3/cmm (130-400) 06/06/20 04:53 MPV 10.3 fL (7.4-10.4) 06/06/20 04:53 Neut % (Auto) 57.7 % 06/06/20 04:53 Lymph % (Auto) 25.9 % 06/06/20 04:53 Haakon % (Auto) 10.8 % 06/06/20 04:53 Eos % (Auto) 4.2 % 06/06/20 04:53 Baso % (Auto) 0.9 % 06/06/20 04:53 Neut # (Auto) 2.44 10^3/uL (1.8-7.7) 06/06/20 04:53 Lymph # (Auto) 1.1 10^3/uL (0.8-4.8) 06/06/20 04:53 Haakon # (Auto) 0.5 10^3/uL (0.2-0.9) 06/06/20 04:53 Eos # (Auto) 0.2 10^3/uL (0.0-0.8) 06/06/20 04:53 Baso # (Auto) 0.0 10^3/uL (0.0-0.1) 06/06/20 04:53 Nucleated RBC % (auto) 0 % 06/06/20 04:53 Nucleated RBCs # 0.0 /100WBC 06/06/20 04:53 PT 19.50 SECONDS (12.1-14.9) H 06/03/20 21:35 INR 1.59 (0.8-1.2) H 06/03/20 21:35 APTT 43.0 SECONDS (23.9-36.7) H 06/03/20 21:35 Fibrinogen 560 mg/dL (174-498) H 06/03/20 21:35 D-Dimer 4.15 ug/mIFEU (0-0.59) H 06/03/20 13:25 Sodium 134 mmol/L (136-145) L 06/06/20 04:53 Potassium 4.3 mmol/L (3.5-5.1) 06/06/20 04:53 Chloride 92 mmol/L (98-107) L 06/06/20 04:53 Carbon Dioxide 29 mmol/L (22-29) 06/06/20 04:53 Anion Gap 17.3 (5-19) 06/06/20 04:53 BUN 24 mg/dL (8-23) H 06/06/20 04:53 Creatinine 1.2 mg/dL (0.7-1.2) 06/06/20 04:53 GFR Calculation Not Reportable 06/06/20 04:53 Glucose 97 mg/dL (65-115) 06/06/20 04:53 POC Glucose 108 mg/dL (70-110) 06/06/20 06:44 Calculated Osmolality 282 mOsm/kg (285-295) L 06/06/20 04:53 Lactate 1.9 mmol/L (0.5-2.2) 06/03/20 13:25 Calcium 8.7 mg/dL (8.5-10.5) 06/06/20 04:53 Total Bilirubin 0.8 mg/dL (0.15-1.2) 06/06/20 04:53 AST 30 U/L (0-40) 06/06/20 04:53 ALT 16 U/L (0-41) 06/06/20 04:53 Alkaline Phosphatase 113 IU/L (40-130) 06/06/20 04:53 Troponin T Baseline 51 ng/L (0-15) H 06/03/20 13:25 Troponin T 120 Minute 48.98 ng/L (0-15) H 06/03/20 15:27 Delta Troponin T -2.02 ABS# (0-10) L 06/03/20 15:27 Troponin T Hi Sens 6Hr 50.30 ng/L (0-15) H 06/03/20 19:33 Troponin T Hi Sens 6Hr Delta -0.70 ng/L (0-12) L 06/03/20 19:33 NT-Pro-B Natriuret Pep 1472 pg/mL (0-450) H 06/03/20 13:25 Total Protein 7.0 g/dL (6.6-8.7) 06/06/20 04:53 Albumin 3.5 g/dL (3.5-5.2) 06/06/20 04:53 Globulin 3.5 g/dL (1.3-4.6) 06/06/20 04:53 [id number] 231 mg/dL (83-199) H 06/03/20 21:35 Lipase 33 U/L (13-60) 06/03/20 13:25 Urine Color Yellow (Yellow) 06/03/20 14:22 Urine Appearance Clear (CLEAR) 06/03/20 14:22 Urine pH 6.5 (5-7) 06/03/20 14:22 Ur Specific [place] 1.015 (1.005-1.030) 06/03/20 14:22 Urine Protein Trace (Negative) 06/03/20 14:22 Urine Glucose (UA) Norm (Normal) 06/03/20 14:22 Urine Ketones Negative (Negative) 06/03/20 14:22 Urine Blood 3+ (Negative) H 06/03/20 14:22 Urine Nitrate Negative (Negative) 06/03/20 14:22 Urine Bilirubin 1+ (Negative) H 06/03/20 14:22 Urine Urobilinogen 1 mg/dL (Negative) H 06/03/20 14:22 Ur Leukocyte Esterase Negative (Negative) 06/03/20 14:22 Urine RBC 25-40 /hpf (0-2) H 06/03/20 14:22 Urine WBC 0-4 /hpf (0-5) H 06/03/20 14:22 Ur Squamous Epith Cells 0-4 /hpf (0-5) H 06/03/20 14:22 Amorphous Sediment Not Reportable 06/03/20 14:22 Urine Bacteria 2+ /hpf (NONE) H 06/03/20 14:22 Hepatitis A IgM Ab Non-reactive (Nonreactive) 06/03/20 15:27 Hep Bs Antigen Non-reactive (Nonreactive) 06/03/20 15:27 Hep B Core IgM Ab Non-reactive (Nonreactive) 06/03/20 15:27 Hepatitis C Antibody Non-reactive (Nonreactive) 06/03/20 15:27 SARS-CoV-2 Ag (Rapid) Negative (Negative) 06/03/20 17:48 Micro: Microbiology 06/03/20 14:22 Urine Culture - Final Urine,Clean Catch A&P Assessment and plan (1) Abnormal nuclear stress test: The implications of the abnormal myocardial perfusion imaging were discussed with the patient in detail. The areas of ischemia appears to be small. In order to further evaluate the coronary status, he requires a cardiac catheterization. Since the patient denies any chest pain or other specific cardiac symptoms, it may be appropriate to consider this after optimizing the treatment for heart failure/anasarca. This was discussed with the patient detail which is understood well. Patient is wanting to go ahead with the cardiac catheterization as early as possible. Consider cardiac catheterization once the heart failure is appropriately treated. Status: Acute (2) SOB (shortness of breath): Patient seems to be responding to the higher dose of Lasix. May continue on the current dose of Lasix for 24 to 48 hours. Repeat BMP in the morning. Status: Acute (3) Chronic atrial fibrillation: Patient is with a controlled ventricular response rate. His heart rate is mostly in the low 50s in the upper 40s. May not require any specific intervention at this point. Consider discontinuing the Eliquis, and preparation for the possible cath before hospital discharge Status: Acute (4) Bradycardia: Patient may require a permanent pacer implantation, sometime down the line. As of now, the bradyarrhythmia may not be a contributing factor for his symptomatology. Consider further cardiac work-up based on the coronary angiogram. Status: Acute (5) Left upper quadrant pain: The etiology is unclear. SBP is being considered. Patient has some features of portal hypertension. Work-up and management as per the primary Status: Acute (6) Anasarca: IV diuretic management as mentioned above Status: Acute (7) Hyperlipidemia: May Continue on the current medications Status: Acute Qualifiers: Hyperlipidemia type: mixed hyperlipidemia Qualified Code(s): E78.2 - Mixed hyperlipidemia (8) Hypertension: Currently is of stage II hypertension. We will continue to optimize antihypertensive medications. I may start him on Entresto once twice daily. Discontinue the losartan Status: Acute Qualifiers: Hypertension type: essential hypertension Qualified Code(s): I10 - Essential (primary) hypertension Additional A&P Information Based on the clinical progress, further management decisions will be made Attestations Medical Necessity Statement*: Patient requires continued hospital stay for close monitoring and further management Coding Level of Care Code Acute Lining Closer for g Fwd Diagnoses Abnormal nuclear stress test R94.39 SOB (shortness of breath) R06.02 Chronic atrial fibrillation I48.20 Bradycardia R00.1 Left upper quadrant pain R10.12 Anasarca R60.1 Hyperlipidemia E78.2 Hyperlipidemia type: mixed hyperlipidemia Hypertension I10 Hypertension type: essential hypertension
[2020-06-06 10:44] LABS: Glucose Point of Care 163 mg/dL (70-110)
[2020-06-06] MEDS: enoxaparin 120 mg/0.8 mL Syringe SUBCUT ×2 (12:46→23:34)
[2020-06-06] MEDS: pantoprazole DR 40 mg Tablet PO (12:47)
[2020-06-06] MEDS: spironolactone 25 mg Tablet PO (12:47)
[2020-06-06] MEDS: gabapentin 400 mg Capsule 800 MG PO ×2 (14:39→21:43)
--- NOTE | 2020-06-06 14:53 | PC.NURSE ---
late entry Morning medications given late due to an emergency situation with another patient.
--- NOTE | 2020-06-06 15:24 | PM.PN ---
Subjective Subjective: Interval history: Diuresing well currently. Hemodynamically stable. Abdominal pain improving. 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 Data : 06/06/20 04:53 06/06/20 04:53 Micro: Microbiology 06/03/20 14:22 Urine Culture - Final Urine,Clean Catch A&P Assessment and plan (1) Left upper quadrant pain: Status: Acute (2) Cirrhosis: Status: Acute (3) Anasarca: Status: Acute (4) Chronic venous insufficiency: Status: Acute (5) Bradycardia: Status: Acute (6) Abnormal nuclear stress test: Status: Acute (7) Acute exacerbation of CHF (congestive heart failure): Status: Acute Additional A&P Information # Acute on chronic combined systolic and diastolic heart failure Appreciate cardiology recommendations Continue Lasix to 60 mg IV every 8 along with concomitant potassium supplementation. Additionally started on Entresto after discontinuing losartan. Measure urine output closely. Measure daily weights. Patient has generalized anasarca including fairly hepatic and perisplenic ascites which is currently not amenable to paracentesis. #Abnormal stress test Appreciate cardiology recommendations Small areas of reversible ischemia Planning for cardiac catheterization #Left upper quadrant pain CT abdomen revealed perisplenic fluid collection with underlying ascites consistent with portal hypertension Overall unclear etiology of left upper quadrant pain, possible that ascites may be contributing here, unable to get paracentesis as not enough fluid to safely drain at this present time. CT of the abdomen without any acute intra-abdominal process Currently tolerating her diet, abdominal pain is improved. suspicion for SBP is low at this time, however since unable to get paracentesis, will treat with empiric 5-day regimen of ceftriaxone Cholelithiasis without active signs of cholecystitis #Liver cirrhosis Unclear etiology, however may be related to congestive hepatopathy due to heart failure Hepatitis panel negative No signs of Parkinson's, Asif's disease unlikely No signs of portal vein thrombosis on abdominal ultrasound #A. fib with bradycardia Monitor for now, not symptomatic from the bradycardia. May need a pacemaker down the line Eliquis has been placed on hold, converted to full dose Lovenox instead in anticipation of upcoming procedure # COPD Patient is endorsing using BiPAP at night and 1 to 2 L at home in the morning No acute exacerbation Sodium restricted diet, consistent carb diet prn nebulization Full code DVT prophylaxis: Obi Attestations Medical Necessity Statement*: Ongoing need for IV diuresis, plan for likely cardiac cath Coding Level of Care Code Acute Board Certified Music Therapist for Chg Fwd Diagnoses Left upper quadrant pain R10.12 Cirrhosis K74.60 Anasarca R60.1 Chronic venous insufficiency I87.2 Bradycardia R00.1 Abnormal nuclear stress test R94.39 Acute exacerbation of CHF (congestive heart failure) I50.9
[2020-06-06 17:24] LABS: Glucose Point of Care 153 mg/dL (70-110)
[2020-06-06] MEDS: sacubitril/valsartan 24-26 mg Tablet 1 EACH PO (18:17)
[2020-06-06 21:14] LABS: Glucose Point of Care 159 mg/dL (70-110)
[2020-06-06] MEDS: cefTRIAXone 1,000 MG in sodium chloride 0.9% (plus) 50 ML 100 MG IV (21:43)
[2020-06-07] VITALS (12 sets, daily range): BP systolic 118–154; BP diastolic 59–83; PULSE 41–55; RESP 17–20; TEMP 36.4–36.7; O2SAT 96–100
[2020-06-07] MEDS: potassium chloride ER 20 mEq Tablet PO ×4 (06:27→22:42)
[2020-06-07] MEDS: levothyroxine 100 mcg Tablet PO (06:27)
[2020-06-07] MEDS: FUROsemide 10 mg/mL SDV 10mL 60 MG IVP ×3 (06:30→20:58)
[2020-06-07 06:45] LABS: Glucose Point of Care 128 mg/dL (70-110)
[2020-06-07 09:05] LABS: Basophils # 0.1 10^3/uL (0.0-0.1); Basophils % 1.2 %; Eosinophils # 0.1 10^3/uL (0.0-0.8); Eosinophils % 2.9 %; Hematocrit 40.1 % (42.0-52.0); Hemoglobin 12.5 g/dL (11.7-16.6); Lymphocytes # 1.3 10^3/uL (0.8-4.8); Mean Corpuscular HGB Conc 31.2 g/dL (30.0-36.0); Mean Corpuscular Hemoglobin 26.8 pg (28.0-34.0); Mean Corpuscular Volume 85.9 fL (80-94); Mean Platelet Volume 10.3 fL (7.4-10.4); Monocytes # 0.5 10^3/uL (0.2-0.9); Monocytes % 10.6 %; Neutrophils % 58.1 %; Nucleated Red Blood Cells % 0 %; Platelet Count 276 10^3/cmm (130-400); Red Blood Count 4.67 10^6/uL (4.1-5.3); Red Cell Distribution Width 15.4 % (12.1-15.1); White Blood Count 4.8 10^3/uL (4.0-10.0)
[2020-06-07 09:27] LABS: Alanine Aminotransferase 17 U/L (0-41); Albumin Level 3.9 g/dL (3.5-5.2); Alkaline Phosphatase 133 IU/L (40-130); Anion Gap 17.4 (5-19); Aspartate Amino Transferase 35 U/L (0-40); Blood Urea Nitrogen 26 mg/dL (8-23); Calcium 9.7 mg/dL (8.5-10.5); Carbon Dioxide 31 mmol/L (22-29); Chloride 92 mmol/L (98-107); Globulin 4.1 g/dL (1.3-4.6); Glucose 139 mg/dL (65-115); Osmolality Calculated 289 mOsm/kg (285-295); Potassium 4.4 mmol/L (3.5-5.1); Sodium 136 mmol/L (136-145)
[2020-06-07] MEDS: spironolactone 25 mg Tablet PO (09:30)
[2020-06-07] MEDS: pantoprazole DR 40 mg Tablet PO (09:30)
[2020-06-07] MEDS: gabapentin 400 mg Capsule 800 MG PO ×3 (09:30→21:51)
[2020-06-07] MEDS: sacubitril/valsartan 24-26 mg Tablet 1 EACH PO ×2 (09:30→17:41)
[2020-06-07 11:23] LABS: Glucose Point of Care 180 mg/dL (70-110)
[2020-06-07] MEDS: enoxaparin 120 mg/0.8 mL Syringe SUBCUT ×2 (12:03→23:12)
--- NOTE | 2020-06-07 12:07 | PM.PN ---
Subjective Subjective: Interval history: Patient is doing well. Redness of breath or palpitations. Still feels tight in the abdomen. Receiving IV Lasix and has been having good urine output. I&O's are not accurately documented. Still complaining of left upper quadrant abdominal pain. Vitals/I&O/Wt Last Vital Signs Temp 97.5 F L 06/07/20 11:42 Pulse 41 L 06/07/20 11:42 Resp 18 06/07/20 11:42 BP 138/64 06/07/20 11:42 Pulse Ox 97 06/07/20 11:42 06/06/20 06/07/20 06/07/20 22:59 06:59 14:59 Intake Total 120 / 480 50 / 530 240 / 240 Balance 120 / 480 50 / 530 240 / 240 Weight last 48 hrs Weight 279 lb Weight 286 lb 9 oz Physical Exam Narrative: EXAM NARRATIVE: GENERAL: Alert and oriented x3 HEENT: PERRLA NECK: No JVD RESPIRATORY: Chest is clear to auscultation. No significant crackles. HEART: S1 + S2 and systolic murmur grade 3/ 6. ABDOMEN: Abdomen is slightly distended. Obese. Minimal tenderness in the left upper quadrant area. Bowel sounds are normally heard. : Deferred. RECTAL: Deferred. LYMPHATIC: No lymphadenopathy noted in the neck or groin. EXTREMITIES: Chronic venous stasis in lower extremities. Peripheral pulses are palpable but weak bilaterally. 1-2+ edema MUSCULOSKELETAL: No acute joint deformities or swelling. NEUROPSYCHIATRIC: The patient is alert and oriented x3. Appears to be in a good mood. Data : 06/07/20 08:08 06/07/20 08:08 Micro: Microbiology 06/03/20 14:22 Urine Culture - Final Urine,Clean Catch A&P Assessment and plan (1) Abnormal nuclear stress test: Patient is still volume overloaded. Plan is to undergo coronary angiography on Tuesday once he is euvolemic. Status: Acute (2) SOB (shortness of breath): Continue current dose of Lasix. Will reevaluate based on tomorrow's BMP. Status: Acute (3) Chronic atrial fibrillation: Is well controlled. Continue current medications. Continue holding Eliquis in preparation for coronary angiography. Status: Acute (4) Bradycardia: Patient may require a permanent pacer implantation, sometime down the line. As of now, the bradyarrhythmia may not be a contributing factor for his symptomatology. Consider further cardiac work-up based on the coronary angiogram. Status: Acute (5) Left upper quadrant pain: The etiology is unclear. SBP is being considered. Patient has some features of portal hypertension. Work-up and management as per the primary Status: Acute (6) Anasarca: IV diuretic management as mentioned above Status: Acute (7) Hyperlipidemia: May Continue on the current medications Status: Acute Qualifiers: Hyperlipidemia type: mixed hyperlipidemia Qualified Code(s): E78.2 - Mixed hyperlipidemia (8) Hypertension: Currently is of stage II hypertension. We will continue to optimize antihypertensive medications. Continue Entresto. Status: Acute Qualifiers: Hypertension type: essential hypertension Qualified Code(s): I10 - Essential (primary) hypertension Additional A&P Information Based on the clinical progress, further management decisions will be made Attestations Medical Necessity Statement*: Care expected to cross 2 midnights. Coding Level of Care Code Acute Telemetry Monitor for [facility] [place] Diagnoses Abnormal nuclear stress test R94.39 SOB (shortness of breath) R06.02 Chronic atrial fibrillation I48.20 Bradycardia R00.1 Left upper quadrant pain R10.12 Anasarca R60.1 Hyperlipidemia E78.2 Hyperlipidemia type: mixed hyperlipidemia Hypertension I10 Hypertension type: essential hypertension
--- NOTE | 2020-06-07 15:30 | P.PN_ITS ---
Subjective Subjective: Interval history: Urine output is not adequately charted. Number of voids is 4+. Weight at 126 kg from 129 kg charted yesterday. 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 Additionally started on Entresto after discontinuing losartan. Measure urine output closely. Measure daily weights. Patient has generalized anasarca including fairly hepatic and perisplenic ascites which is currently not amenable to paracentesis. #Abnormal stress test Appreciate cardiology recommendations Small areas of reversible ischemia Planning for cardiac catheterization #Left upper quadrant pain, this is now resolved CT abdomen revealed perisplenic fluid collection with underlying ascites consistent with portal hypertension Overall unclear etiology of left upper quadrant pain, possible that ascites may be contributing here, unable to get paracentesis as not enough fluid to safely drain at this present time. CT of the abdomen without any acute intra-abdominal process Currently tolerating her diet, abdominal pain is improved. suspicion for SBP is low at this time, however since unable to get paracentesis, will treat with empiric 5-day regimen of ceftriaxone, completed today. Discontinue ceftriaxone Cholelithiasis without active signs of cholecystitis #Liver cirrhosis Unclear etiology, however may be related to congestive hepatopathy due to heart failure Hepatitis panel negative No signs of Parkinson's, Asif's disease unlikely No signs of portal vein thrombosis on abdominal ultrasound #A. fib with bradycardia Monitor for now, not symptomatic from the bradycardia. May need a pacemaker down the line Eliquis has been placed on hold, converted to full dose Lovenox instead in anticipation of upcoming procedure # COPD Patient is endorsing using BiPAP at night and 1 to 2 L at home in the morning No acute exacerbation Sodium restricted diet, consistent carb diet prn nebulization Full code DVT prophylaxis: Obi Attestations Medical Necessity Statement*: Continued need for IV diuresis, planning left heart cath Coding Level of Care Code Acute Isobutylene Operator Chief for Chg Fwd Diagnoses Left upper quadrant pain R10.12 Cirrhosis K74.60 Anasarca R60.1 Chronic venous insufficiency I87.2 Bradycardia R00.1 Abnormal nuclear stress test R94.39 Acute exacerbation of CHF (congestive heart failure) I50.9
[2020-06-07 17:16] LABS: Glucose Point of Care 260 mg/dL (70-110)
[2020-06-07 20:52] LABS: Glucose Point of Care 105 mg/dL (70-110)
[2020-06-07] MEDS: cefTRIAXone 1,000 MG in sodium chloride 0.9% (plus) 50 ML 100 MG IV (21:51)
[2020-06-08] VITALS (12 sets, daily range): BP systolic 116–146; BP diastolic 59–78; PULSE 44–78; RESP 16–23; TEMP 36.3–36.9; O2SAT 91–99; BMI 27.6
[2020-06-08] MEDS: levothyroxine 100 mcg Tablet PO (05:44)
[2020-06-08] MEDS: potassium chloride ER 20 mEq Tablet PO ×4 (05:44→23:37)
[2020-06-08] MEDS: FUROsemide 10 mg/mL SDV 10mL 60 MG IVP ×3 (05:58→22:27)
[2020-06-08 06:45] LABS: Glucose Point of Care 141 mg/dL (70-110)
[2020-06-08] MEDS: gabapentin 400 mg Capsule 800 MG PO ×3 (08:28→20:35)
[2020-06-08] MEDS: pantoprazole DR 40 mg Tablet PO (08:28)
[2020-06-08] MEDS: spironolactone 25 mg Tablet PO (08:28)
[2020-06-08] MEDS: sacubitril/valsartan 24-26 mg Tablet 1 EACH PO ×2 (08:28→18:06)
[2020-06-08 12:09] LABS: Anion Gap 14.3 (5-19); Blood Urea Nitrogen 26 mg/dL (8-23); Calcium 9.4 mg/dL (8.5-10.5); Carbon Dioxide 34 mmol/L (22-29); Chloride 93 mmol/L (98-107); Glucose 201 mg/dL (65-115); Osmolality Calculated 294 mOsm/kg (285-295); Potassium 4.3 mmol/L (3.5-5.1); Sodium 137 mmol/L (136-145)
[2020-06-08] MEDS: enoxaparin 120 mg/0.8 mL Syringe SUBCUT ×2 (12:49→23:37)
--- NOTE | 2020-06-08 12:50 | PC.SOCIAL ---
IMM Update Pg. 2 of IMM updated and reviewed with patient. Copy provided.
--- NOTE | 2020-06-08 13:33 | P.PN_ITS ---
Subjective Subjective: Interval history: Urine output not charted, patient is encouraged to urinate exclusively in the urinal in the hat placed in the bathroom. States he believes he has not had as much urine output as he would have expected with 3 times a day Lasix. However his lower extremity swelling is improving clinically, oxygen requirements are stable at 3 L/min. Is complaining of some soreness in the left upper quadrant, however states that this is likely 60% improved over his admission today. 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 Additionally started on Entresto after discontinuing losartan. Currently tolerating, creatinine and lites are stable. Measure urine output closely. Patient encouraged to urinate exclusively in the urinal or the provided hat. At this present time we are unable to monitor an accurate output. Measure daily weights. Patient has generalized anasarca including fairly hepatic and perisplenic ascites which is currently not amenable to paracentesis. #Abnormal stress test Appreciate cardiology recommendations Small areas of reversible ischemia Planning for cardiac catheterization once clinically more euvolemic #Left upper quadrant pain, this is now resolved CT abdomen revealed perisplenic fluid collection with underlying ascites cons istent with portal hypertension Overall unclear etiology of left upper quadrant pain, possible that ascites may be contributing here, unable to get paracentesis as not enough fluid to safely drain at this present time. CT of the abdomen without any acute intra-abdominal process Currently tolerating her diet, abdominal pain is improved. suspicion for SBP is low at this time, however since unable to get paracentesis, will treat with empiric 5-day regimen of ceftriaxone, completed today. Discontinue ceftriaxone Cholelithiasis without active signs of cholecystitis #Liver cirrhosis Unclear etiology, however may be related to congestive hepatopathy due to heart failure Hepatitis panel negative No signs of Parkinson's, Asif's disease unlikely No signs of portal vein thrombosis on abdominal ultrasound #A. fib with bradycardia Monitor for now, not symptomatic from the bradycardia. May need a pacemaker down the line Eliquis has been placed on hold, converted to full dose Lovenox instead in anticipation of upcoming procedure # COPD Patient is endorsing using BiPAP at night and 1 to 2 L at home in the morning No acute exacerbation Sodium restricted diet, consistent carb diet prn nebulization Full code DVT prophylaxis: Obi Attestations Medical Necessity Statement*: Ongoing need for IV diuresis, left heart cath once more stable Coding Level of Care Code Acute Transitional Living Specialist for Chg Fwd Diagnoses Left upper quadrant pain R10.12 Cirrhosis K74.60 Anasarca R60.1 Chronic venous insufficiency I87.2 Bradycardia R00.1 Abnormal nuclear stress test R94.39 Acute exacerbation of CHF (congestive heart failure) I50.9
[2020-06-08 16:43] LABS: Glucose Point of Care 212 mg/dL (70-110)
[2020-06-08 16:44] LABS: Glucose Point of Care 155 mg/dL (70-110)
--- NOTE | 2020-06-08 17:44 | P.PN_ITS ---
Subjective Subjective: Interval history: Patient is doing well. He feels his symptoms are much better. His LUQ pain is also improving. Abdomen is less tense. I and Os are accurately documented but he is responding well to diuretic therapy. Vitals/I&O/Wt Last Vital Signs Temp 97.6 F 06/08/20 15:23 Pulse 52 L 06/08/20 15:23 Resp 17 06/08/20 15:23 BP 136/64 06/08/20 15:23 Pulse Ox 91 06/08/20 15:23 06/08/20 06/08/20 06/08/20 06:59 14:59 22:59 Intake Total 50 / 1430 600 / 600 Output Total 500 / 500 Balance 50 / 1430 600 / 600 -500 / 100 Weight last 48 hrs Weight 270 lb 2 oz Weight 279 lb Physical Exam Narrative: EXAM NARRATIVE: GENERAL: Alert and oriented x3 HEENT: PERRLA NECK: No JVD RESPIRATORY: Chest is clear to auscultation. No significant crackles. HEART: S1 + S2 and systolic murmur grade 3/ 6. ABDOMEN: Abdomen is slightly distended. Obese. Minimal tenderness in the left upper quadrant area. Bowel sounds are normally heard. : Deferred. RECTAL: Deferred. LYMPHATIC: No lymphadenopathy noted in the neck or groin. EXTREMITIES: Chronic venous stasis in lower extremities. Peripheral pulses are palpable but weak bilaterally. 1-2+ edema MUSCULOSKELETAL: No acute joint deformities or swelling. NEUROPSYCHIATRIC: The patient is alert and oriented x3. Appears to be in a good mood. Data : 06/07/20 08:08 06/08/20 11:37 A&P Assessment and plan (1) Abnormal nuclear stress test: Patient is still volume overloaded but feels much better. Plan is to undergo coronary angiography in 1 to 2 days. Status: Acute (2) SOB (shortness of breath): Continue current dose of Lasix. Will reevaluate based on tomorrow's BMP. Status: Acute (3) Chronic atrial fibrillation: Is well controlled. Continue current medications. Continue holding Eliqu is in preparation for coronary angiography. Status: Acute (4) Bradycardia: Patient may require a permanent pacer implantation, sometime down the line. As of now, the bradyarrhythmia may not be a contributing factor for his symptomatology. Consider further cardiac work-up based on the coronary angiogram. Status: Acute (5) Left upper quadrant pain: The etiology is unclear. SBP is being considered. Patient has some features of portal hypertension. Work-up and management as per the primary Status: Acute (6) Anasarca: IV diuretic management as mentioned above Status: Acute (7) Hyperlipidemia: May Continue on the current medications Status: Acute Qualifiers: Hyperlipidemia type: mixed hyperlipidemia Qualified Code(s): E78.2 - Mixed hyperlipidemia (8) Hypertension: Currently is of stage II hypertension. We will continue to optimize antihypertensive medications. Continue Entresto. Status: Acute Qualifiers: Hypertension type: essential hypertension Qualified Code(s): I10 - Essential (primary) hypertension Additional A&P Information Based on the clinical progress, further management decisions will be made Attestations Medical Necessity Statement*: Care expected to cross 2 midnights. 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
[2020-06-08] MEDS: lidocaine 5% Patch 1 PATCH TOPICAL (20:47)
[2020-06-08 21:13] LABS: Glucose Point of Care 137 mg/dL (70-110)
[2020-06-09] VITALS (10 sets, daily range): BP systolic 104–144; BP diastolic 51–76; PULSE 45–74; RESP 15–20; TEMP 36.5–36.9; O2SAT 92–98
[2020-06-09] MEDS: potassium chloride ER 20 mEq Tablet PO ×4 (05:24→21:55)
[2020-06-09] MEDS: levothyroxine 100 mcg Tablet PO (05:24)
[2020-06-09] MEDS: FUROsemide 10 mg/mL SDV 10mL 60 MG IVP ×3 (05:57→21:53)
[2020-06-09 06:37] LABS: Glucose Point of Care 163 mg/dL (70-110)
[2020-06-09 07:03] LABS: Basophils # 0.1 10^3/uL (0.0-0.1); Basophils % 1.2 %; Eosinophils # 0.2 10^3/uL (0.0-0.8); Eosinophils % 4.7 %; Hematocrit 39.1 % (42.0-52.0); Hemoglobin 12.4 g/dL (11.7-16.6); Lymphocytes # 1.4 10^3/uL (0.8-4.8); Lymphocytes % 35.3 %; Mean Corpuscular HGB Conc 31.7 g/dL (30.0-36.0); Mean Corpuscular Hemoglobin 26.6 pg (28.0-34.0); Mean Corpuscular Volume 83.7 fL (80-94); Mean Platelet Volume 9.9 fL (7.4-10.4); Monocytes # 0.5 10^3/uL (0.2-0.9); Monocytes % 13.1 %; Neutrophils # 1.85 10^3/uL (1.8-7.7); Neutrophils % 45.7 %; Nucleated Red Blood Cells % 0 %; Platelet Count 278 10^3/cmm (130-400); Red Blood Count 4.67 10^6/uL (4.1-5.3); White Blood Count 4.1 10^3/uL (4.0-10.0)
[2020-06-09 07:15] LABS: Alanine Aminotransferase 14 U/L (0-41); Albumin Level 3.8 g/dL (3.5-5.2); Alkaline Phosphatase 122 IU/L (40-130); Aspartate Amino Transferase 29 U/L (0-40); Blood Urea Nitrogen 28 mg/dL (8-23); Calcium 9.1 mg/dL (8.5-10.5); Carbon Dioxide 31 mmol/L (22-29); Chloride 90 mmol/L (98-107); Glucose 150 mg/dL (65-115); Osmolality Calculated 282 mOsm/kg (285-295); Sodium 132 mmol/L (136-145); Total Bilirubin 0.9 mg/dL (0.15-1.2); Total Protein 7.8 g/dL (6.6-8.7)
[2020-06-09] MEDS: gabapentin 400 mg Capsule 800 MG PO ×3 (08:27→20:59)
[2020-06-09] MEDS: pantoprazole DR 40 mg Tablet PO (08:27)
[2020-06-09] MEDS: spironolactone 25 mg Tablet PO (08:28)
[2020-06-09] MEDS: lidocaine 5% Patch 1 PATCH TOPICAL (08:28)
[2020-06-09] MEDS: oxyCODONE-APAP 5-325 mg Tablet 1 TAB PO ×2 (08:28→15:13)
[2020-06-09] MEDS: sacubitril/valsartan 24-26 mg Tablet 1 EACH PO (09:34)
[2020-06-09 10:51] LABS: Glucose Point of Care 195 mg/dL (70-110)
[2020-06-09 10:51] LABS: Glucose Point of Care 295 mg/dL (70-110)
[2020-06-09] MEDS: enoxaparin 120 mg/0.8 mL Syringe SUBCUT ×2 (11:48→23:16)
--- NOTE | 2020-06-09 12:59 | PM.PN ---
Subjective Subjective: Interval history: Patient was seen and examined this morning.No acute event overnight. He has remained afebrile. Continues to have good urine output with lasix. Medications: Reviewed: Yes Medication Review Details: Current Medications Apixaban (Apixaban 5 Mg Tablet) 5 mg PO BID [facility] Dextrose (Dextrose 50% Syringe 50 Ml) 25 ml IVP ONCE PRN; Protocol PRN Reason: hypoglycemia protocol Dextrose (Dextrose 50% Syringe 50 Ml) 50 ml IVP PRN PRN; Protocol PRN Reason: hypoglycemia protocol Furosemide (Furosemide 10 Mg/Ml Sdv 10ml) 60 mg IVP Q8H [facility] Last Admin: 06/06/20 06:32 Dose: 60 mg Documented by: Gabapentin (Gabapentin 400 Mg Capsule) 800 mg PO TID [facility] Last Admin: 06/05/20 20:47 Dose: 800 mg Documented by: Glucagon (Glucagon 1 Mg/Ml Inj 1 Ml) 1 mg IM ONCE PRN; Protocol PRN Reason: Adult Acute Hypoglycemia Prot. Dextrose (D5w) 500 mls @ 100 mls/hr IV ONCE PRN; Protocol PRN Reason: Adult Acute Hypoglycemia Prot Ceftriaxone Sodium 1,000 mg/ (Sodium Chloride) 50 mls @ 100 mls/hr IV Q24H [facility]; Protocol Last Infusion: 06/06/20 05:22 Dose: Infused Documented by: Insulin Aspart (Insulin Aspart 100 Unit/1 Ml) 0 unit SUBCUT WM&BEDTIME [facility]; Protocol Last Admin: 06/06/20 08:02 Dose: Not Given Documented by: Levothyroxine Sodium (Levothyroxine 100 Mcg Tablet) 100 mcg PO QAM [facility] Last Admin: 06/06/20 05:19 Dose: 100 mcg Documented by: Losartan Potassium (Losartan 50 Mg Tablet) 50 mg PO QAM [facility] Last Admin: 06/06/20 05:19 Dose: 50 mg Documented by: Ondansetron HCl (Ondansetron 2 Mg/Ml Sdv 2 Ml) 4 mg IVP Q2M PRN PRN Reason: NAUSEA Oxycodone/Acetaminophen (Oxycodone-Apap 5-325 Mg Tablet) 1 tab PO BID PRN PRN Reason: pain Last Admin: 06/03/20 22:20 Dose: 1 tab Documented by: Pantoprazole Sodium (Pantoprazole Dr 40 Mg Tablet) 40 mg PO DAILY [facility] Last Admin: 06/05/20 09:26 Dose: 40 mg Documented by: Potassium Chloride (Potassium Chloride Er 20 Meq Tablet) 20 meq PO Q6H [facility] Last Admin: 06/06/20 05:17 Dose: 20 meq Documented by: Spironolactone (Spironolactone 25 Mg Tablet) 25 mg PO DAILY [facility] Last Admin: 06/05/20 09:26 Dose: 25 mg Documented by: Vitals/I&O/Wt Last Vital Signs Temp 97.8 F 06/09/20 11:27 Pulse 65 06/09/20 11:27 Resp 19 H 06/09/20 11:27 BP 111/66 06/09/20 11:27 Pulse Ox 97 06/09/20 11:27 06/08/20 06/09/20 06/09/20 22:59 06:59 14:59 Intake Total 240 / 840 120 / 960 Output Total 1350 / 1350 1750 / 3100 400 / 400 Balance -1110 / -510 -1630 / -2140 -400 / -400 Weight last 48 hrs Weight 122.527 kg Physical Exam Const: COMMON NORMALS: patient oriented x3 HENMT: COMMON NORMALS: normocephalic and atraumatic HEAD & SCALP: normocephalic and atraumatic Resp: COMMON NORMALS: clear to auscultation bilaterally EFFORT & INSPECTION: Yes symmetric chest movement AUSCULTATION: clear to auscultation bilaterally Cardio: COMMON NORMALS: regular rate, regular rhythm, S1 normal heart sound present, S2 normal heart sound present, No gallops present (Cardio), No murmurs present (Cardio), No rub (Cardio) and Peripheral pulses 2+ throughout RATE: regular rate RHYTHM: regular rhythm HEART SOUNDS: S1 normal heart sound present and S2 normal heart sound present PERIPHERAL PULSES: Peripheral pulses 2+ throughout GI: COMMON NORMALS: Normal to inspection, nondistended, normoactive bowel sounds present, Soft to palpation, non-tender, No hepatosplenomegaly present and no masses AUSCULTATION: Yes normoactive bowel sounds PALPATION: Yes Soft to palpation and Yes No hepatosplenomegaly present RECTAL EXAM: Yes deferred Extremity: OTHER: Chronic venous stasis in lower extremities. Peripheral pulses are palpable but weak bilaterally. 1-2+ edema Neuro: COMMON NORMALS: patient oriented x3 Data : 06/09/20 06:00 06/09/20 06:00 A&P Assessment and plan (1) Left upper quadrant pain: Status: Acute (2) Cirrhosis: Status: Acute (3) Anasarca: Status: Acute (4) Chronic venous insufficiency: Status: Acute (5) Bradycardia: Status: Acute (6) Abnormal nuclear stress test: Status: Acute (7) Acute exacerbation of CHF (congestive heart failure): Status: Acute Additional A&P Information # Acute on chronic combined systolic and diastolic heart failure Appreciate cardiology recommendations Continue Lasix to 60 mg IV every 8 along with concomitant potassium supplementation. Additionally started on Entresto after discontinuing losartan. Currently tolerating, creatinine and lites are stable. Measure urine output closely. Patient encouraged to urinate exclusively in the urinal or the provided hat. At this present time we are unable to monitor an accurate output. Measure daily weights. Patient has generalized anasarca including fairly hepatic and perisplenic ascites which is currently not amenable to paracentesis. #Abnormal stress test Appreciate cardiology recommendations Small areas of reversible ischemia Planning for cardiac catheterization once clinically more euvolemic #Left upper quadrant pain, this is now resolved CT abdomen revealed perisplenic fluid collection with underlying ascites consistent with portal hypertension Overall unclear etiology of left upper quadrant pain, possible that ascites may be contributing here, unable to get paracentesis as not enough fluid to safely drain at this present time. CT of the abdomen without any acute intra-abdominal process Currently tolerating her diet, abdominal pain is improved. suspicion for SBP is low at this time, however since unable to get paracentesis, will treat with empiric 5-day regimen of ceftriaxone, completed today. Discontinue ceftriaxone Cholelithiasis without active signs of cholecystitis #Liver cirrhosis Unclear etiology, however may be related to congestive hepatopathy due to heart failure Hepatitis panel negative No signs of Parkinson's, Asif's disease unlikely No signs of portal vein thrombosis on abdominal ultrasound #A. fib with bradycardia Monitor for now, not symptomatic from the bradycardia. May need a pacemaker down the line Eliquis has been placed on hold, converted to full dose Lovenox instead in anticipation of upcoming procedure # COPD Patient is endorsing using BiPAP at night and 1 to 2 L at home in the morning No acute exacerbation Sodium restricted diet, consistent carb diet prn nebulization Full code DVT prophylaxis: Obi Rodriguez Medical Necessity Statement*: Patient needs to be in hospital for the management of decompensated H/F and the need for I.V lasix as well as for [facility] Coding Level of Care Code Acute Chief Client Officer for Chg Fwd Diagnoses Left upper quadrant pain R10.12 Cirrhosis K74.60 Anasarca R60.1 Chronic venous insufficiency I87.2 Bradycardia R00.1 Abnormal nuclear stress test R94.39 Acute exacerbation of CHF (congestive heart failure) I50.9
[2020-06-09 16:47] LABS: Glucose Point of Care 134 mg/dL (70-110)
[2020-06-09 20:54] LABS: Glucose Point of Care 232 mg/dL (70-110)
[2020-06-10] VITALS (19 sets, daily range): BP systolic 110–144; BP diastolic 59–83; PULSE 39–79; RESP 16–19; TEMP 36.1–36.7; O2SAT 94–99
[2020-06-10] MEDS: FUROsemide 10 mg/mL SDV 10mL 60 MG IVP (05:50)
[2020-06-10] MEDS: potassium chloride ER 20 mEq Tablet PO ×4 (05:50→22:05)
[2020-06-10] MEDS: levothyroxine 100 mcg Tablet PO (05:50)
[2020-06-10 06:36] LABS: Glucose Point of Care 147 mg/dL (70-110)
[2020-06-10] MEDS: oxyCODONE-APAP 5-325 mg Tablet 1 TAB PO ×2 (08:38→23:19)
[2020-06-10] MEDS: pantoprazole DR 40 mg Tablet PO (08:39)
[2020-06-10] MEDS: gabapentin 400 mg Capsule 800 MG PO ×3 (08:39→22:05)
[2020-06-10] MEDS: sacubitril/valsartan 24-26 mg Tablet 1 EACH PO ×2 (08:39→17:26)
[2020-06-10] MEDS: spironolactone 25 mg Tablet PO (08:39)
[2020-06-10] MEDS: lidocaine 5% Patch 1 PATCH TOPICAL (08:39)
[2020-06-10] MEDS: ipratropium-albuterol 3 mL Neb INHALATION ×3 (09:17→22:39)
[2020-06-10 09:33] LABS: Basophils # 0.1 10^3/uL (0.0-0.1); Basophils % 1.2 %; Eosinophils # 0.2 10^3/uL (0.0-0.8); Eosinophils % 3.7 %; Hematocrit 42.3 % (42.0-52.0); Hemoglobin 13.2 g/dL (11.7-16.6); Lymphocytes # 1.5 10^3/uL (0.8-4.8); Lymphocytes % 36.1 %; Mean Corpuscular HGB Conc 31.2 g/dL (30.0-36.0); Mean Corpuscular Hemoglobin 26.5 pg (28.0-34.0); Mean Corpuscular Volume 84.8 fL (80-94); Mean Platelet Volume 9.4 fL (7.4-10.4); Monocytes # 0.5 10^3/uL (0.2-0.9); Monocytes % 11.4 %; Neutrophils % 47.4 %; Nucleated Red Blood Cells % 0 %; Platelet Count 277 10^3/cmm (130-400); Red Blood Count 4.99 10^6/uL (4.1-5.3); Red Cell Distribution Width 15.2 % (12.1-15.1)
[2020-06-10 09:54] LABS: Alanine Aminotransferase 17 U/L (0-41); Albumin Level 4.1 g/dL (3.5-5.2); Alkaline Phosphatase 128 IU/L (40-130); Anion Gap 14.5 (5-19); Aspartate Amino Transferase 40 U/L (0-40); Blood Urea Nitrogen 34 mg/dL (8-23); Calcium 9.5 mg/dL (8.5-10.5); Carbon Dioxide 31 mmol/L (22-29); Chloride 91 mmol/L (98-107); Globulin 3.9 g/dL (1.3-4.6); Glucose 218 mg/dL (65-115); Osmolality Calculated 288 mOsm/kg (285-295); Potassium 4.5 mmol/L (3.5-5.1); Sodium 132 mmol/L (136-145)
--- NOTE | 2020-06-10 10:08 | PC.SOCIAL ---
IMM Updated Updated pt on Pg 2 IMM. No questions voiced. Provided pt a copy. Signed, dated, & timed copy in chart.
[2020-06-10 10:44] LABS: Glucose Point of Care 206 mg/dL (70-110)
[2020-06-10] MEDS: enoxaparin 120 mg/0.8 mL Syringe SUBCUT ×2 (12:42→23:25)
--- NOTE | 2020-06-10 14:14 | P.PN_ITS ---
Subjective Subjective: Interval history: Patient was seen and examined this morning.No acute event overnight. He has remained afebrile. Continues to have good urine output with lasix. SCR has worsened slightly. LOS : Is net Negative. Medications: Reviewed: Yes Medication Review Details: Current Medications Apixaban (Apixaban 5 Mg Tablet) 5 mg PO BID [facility] Dextrose (Dextrose 50% Syringe 50 Ml) 25 ml IVP ONCE PRN; Protocol PRN Reason: hypoglycemia protocol Dextrose (Dextrose 50% Syringe 50 Ml) 50 ml IVP PRN PRN; Protocol PRN Reason: hypoglycemia protocol Furosemide (Furosemide 10 Mg/Ml Sdv 10ml) 60 mg IVP Q8H [facility] Last Admin: 06/06/20 06:32 Dose: 60 mg Documented by: Gabapentin (Gabapentin 400 Mg Capsule) 800 mg PO TID [facility] Last Admin: 06/05/20 20:47 Dose: 800 mg Documented by: Glucagon (Glucagon 1 Mg/Ml Inj 1 Ml) 1 mg IM ONCE PRN; Protocol PRN Reason: Adult Acute Hypoglycemia Prot. Dextrose (D5w) 500 mls @ 100 mls/hr IV ONCE PRN; Protocol PRN Reason: Adult Acute Hypoglycemia Prot Ceftriaxone Sodium 1,000 mg/ (Sodium Chloride) 50 mls @ 100 mls/hr IV Q24H [facility]; Protocol Last Infusion: 06/06/20 05:22 Dose: Infused Documented by: Insulin Aspart (Insulin Aspart 100 Unit/1 Ml) 0 unit SUBCUT WM&BEDTIME [facility]; Protocol Last Admin: 06/06/20 08:02 Dose: Not Given Documented by: Levothyroxine Sodium (Levothyroxine 100 Mcg Tablet) 100 mcg PO QAM [facility] Last Admin: 06/06/20 05:19 Dose: 100 mcg Documented by: Losartan Potassium (Losartan 50 Mg Tablet) 50 mg PO QAM [facility] Last Admin: 06/06/20 05:19 Dose: 50 mg Documented by: Ondansetron HCl (Ondansetron 2 Mg/Ml Sdv 2 Ml) 4 mg IVP Q2M PRN PRN Reason: NAUSEA Oxycodone/Acetaminophen (Oxycodone-Apap 5-325 Mg Tablet) 1 tab PO BID PRN PRN Reason: pain Last Admin: 06/03/20 22:20 Dose: 1 tab Documented by: Pantoprazole Sodium (Pantoprazole Dr 40 Mg Tablet) 40 mg PO DAILY [facility] Last Admin: 06/05/20 09:26 Dose: 40 mg Documented by: Potassium Chloride (Potassium Chloride Er 20 Meq Tablet) 20 meq PO Q6H [facility] Last Admin: 06/06/20 05:17 Dose: 20 meq Documented by: Spironolactone (Spironolactone 25 Mg Tablet) 25 mg PO DAILY [facility] Last Admin: 06/05/20 09:26 Dose: 25 mg Documented by: Vitals/I&O/Wt Last Vital Signs Temp 98.0 F 06/10/20 11:23 Pulse 75 06/10/20 11:23 Resp 19 H 06/10/20 11:23 BP 110/65 06/10/20 11:23 Pulse Ox 97 06/10/20 11:23 06/09/20 06/10/20 06/10/20 22:59 06:59 14:59 Intake Total 240 / 240 200 / 200 Output Total 1000 / 1400 400 / 1800 750 / 750 Balance -760 / -1160 -400 / -1560 -550 / -550 Weight last 48 hrs Weight 120.429 kg Physical Exam Const: COMMON NORMALS: patient oriented x3 HENMT: COMMON NORMALS: normocephalic and atraumatic HEAD & SCALP: no rmocephalic and atraumatic Resp: COMMON NORMALS: clear to auscultation bilaterally EFFORT & INSPECTION: Yes symmetric chest movement AUSCULTATION: clear to auscultation bilaterally Cardio: COMMON NORMALS: regular rate, regular rhythm, S1 normal heart sound present, S2 normal heart sound present, No gallops present (Cardio), No murmurs present (Cardio), No rub (Cardio) and Peripheral pulses 2+ throughout RATE: regular rate RHYTHM: regular rhythm HEART SOUNDS: S1 normal heart sound present and S2 normal heart sound present PERIPHERAL PULSES: Peripheral pulses 2+ throughout GI: COMMON NORMALS: Normal to inspection, nondistended, normoactive bowel sounds present, Soft to palpation, non-tender, No hepatosplenomegaly present and no masses AUSCULTATION: Yes normoactive bowel sounds PALPATION: Yes Soft to palpation and Yes No hepatosplenomegaly present RECTAL EXAM: Yes deferred Extremity: OTHER: Chronic venous stasis in lower extremities. Peripheral pulses are palpable but weak bilaterally. 1-2+ edema Neuro: COMMON NORMALS: patient oriented x3 Data : 06/10/20 09:18 06/10/20 09:18 A&P Assessment and plan (1) Left upper quadrant pain: Status: Acute (2) Cirrhosis: Status: Acute (3) BRAIN (acute kidney injury): Status: Acute (4) Anasarca: Status: Acute (5) Chronic venous insufficiency: Status: Acute (6) Bradycardia: Status: Acute (7) Abnormal nuclear stress test: Status: Acute (8) Acute exacerbation of CHF (congestive heart failure): Status: Acute Additional A&P Information # Acute on chronic combined systolic and diastolic heart failure Appreciate cardiology recommendations Continue Lasix to 60 mg IV every 8 along with concomitant potassium supplementation. Additionally started on Entresto after discontinuing losartan. Currently tolerating, creatinine and lites are stable. Measure urine output closely. Patient encouraged to urinate exclusively in the urinal or the provided hat. At this present time we are unable to monitor an accurate output. Measure daily weights. Patient has generalized anasarca including fairly hepatic and perisplenic ascites which is currently not amenable to paracentesis. #CKD: Baseline SCR :1.1 - 1.4 Will Hold Lasix dose for today Monitor SCR. #Abnormal stress test Appreciate cardiology recommendations Small areas of reversible ischemia Planning for cardiac catheterization once clinically more euvolemic #Left upper quadrant pain, this is now resolved CT abdomen revealed perisplenic fluid collection with underlying ascites consistent with portal hypertension Overall unclear etiology of left upper quadrant pain, possible that ascites may be contributing here, unable to get paracentesis as not enough fluid to safely drain at this present time. CT of the abdomen without any acute intra-abdominal process Currently tolerating her diet, abdominal pain is improved. suspicion for SBP is low at this time, however since unable to get paracentesis, will treat with empiric 5-day regimen of ceftriaxone, completed today. Discontinue ceftriaxone Cholelithiasis without active signs of cholecystitis #Liver cirrhosis Unclear etiology, however may be related to congestive hepatopathy due to heart failure Hepatitis panel negative No signs of Parkinson's, Asif's disease unlikely No signs of portal vein thrombosis on abdominal ultrasound #A. fib with bradycardia Monitor for now, not symptomatic from the bradycardia. May need a pacemaker down the line Eliquis has been placed on hold, converted to full dose Lovenox instead in anticipation of upcoming procedure # COPD Patient is endorsing using BiPAP at night and 1 to 2 L at home in the morning No acute exacerbation Sodium restricted diet, consistent carb diet prn nebulization Full code DVT prophylaxis: Obi Attsaturninoations Medical Necessity Statement*: Patient needs to be in hospital for the management of decompensated Heart failure. Coding Level of Care Code Acute Rn Iv Therapy for Chg Fwd Diagnoses Left upper quadrant pain R10.12 Cirrhosis K74.60 BRAIN (acute kidney injury) N17.9 Anasarca R60.1 Chronic venous insufficiency I87.2 Bradycardia R00.1 Abnormal nuclear stress test R94.39 Acute exacerbation of CHF (congestive heart failure) I50.9
[2020-06-10 17:07] LABS: Glucose Point of Care 213 mg/dL (70-110)
[2020-06-10 21:05] LABS: Glucose Point of Care 218 mg/dL (70-110)
--- NOTE | 2020-06-10 21:25 | P.PN_ITS ---
Subjective Subjective: Interval history: Patient is feeling much better. He still has some left upper quadrant pain. He is able to lie flat in the bed. The leg swelling has significantly improved. No fever or chills. No cough. Medications: Reviewed: Yes Medication Review Details: Current Medications Albuterol/Ipratropium (Ipratropium-Albuterol 3 Ml Neb) 3 ml INHALATION Q4H PRN PRN Reason: SHORTNESS OF BREATH Last Admin: 06/10/20 15:15 Dose: 3 ml Documented by: Dextrose (Dextrose 50% Syringe 50 Ml) 25 ml IVP ONCE PRN; Protocol PRN Reason: hypoglycemia protocol Dextrose (Dextrose 50% Syringe 50 Ml) 50 ml IVP PRN PRN; Protocol PRN Reason: hypoglycemia protocol Diphenhydramine HCl (Diphenhydramine 50 Mg Capsule) 50 mg PO ONCE ONE Stop: 06/10/20 21:22 Enoxaparin Sodium (Enoxaparin 120 Mg/0.8 Ml Syringe) 120 mg SUBCUT Q12H [facility] Last Admin: 06/10/20 12:42 Dose: 120 mg Documented by: Furosemide (Furosemide 10 Mg/Ml Sdv 10ml) 60 mg IVP DAILY JAIR Gabapentin (Gabapentin 400 Mg Capsule) 800 mg PO TID [facility] Last Admin: 06/10/20 15:20 Dose: 800 mg Documented by: Glucagon (Glucagon 1 Mg/Ml Inj 1 Ml) 1 mg IM ONCE PRN; Protocol PRN Reason: Adult Acute Hypoglycemia Prot. Dextrose (D5w) 500 mls @ 100 mls/hr IV ONCE PRN; Protocol PRN Reason: Adult Acute Hypoglycemia Prot Sodium Chloride (Sodium Chloride 0.9%) 1,000 mls @ 50 mls/hr IV .Q20H ONE Stop: 06/11/20 17:20 Potassium Chloride/Sodium Chloride (Sodium Chlor 0.45% +Kcl 20 Meq) 20 meq in 1,000 mls @ 75 mls/hr IV .[id number] [facility] Insulin Aspart (Insulin Aspart 100 Unit/1 Ml) 0 unit SUBCUT WM&BEDTIME [facility]; Protocol Last Admin: 06/10/20 17:26 Dose: 6 unit Documented by: Levothyroxine Sodium (Levothyroxine 100 Mcg Tablet) 100 mcg PO QAM [facility] Last Admin: 06/10/20 05:50 Dose: 100 mcg Documented by: Lidocaine (Lidocaine 5% Patch) 1 patch TOPICAL [id number] [facility] Last Admin: 06/10/20 08:39 Dose: 1 patch Documented by: Ondansetron HCl (Ondansetron 2 Mg/Ml Sdv 2 Ml) 4 mg IVP Q2M PRN PRN Reason: NAUSEA Oxycodone/Acetaminophen (Oxycodone-Apap 5-325 Mg Tablet) 1 tab PO BID PRN PRN Reason: pain Last Admin: 06/10/20 08:38 Dose: 1 tab Documented by: Pantoprazole Sodium (Pantoprazole Dr 40 Mg Tablet) 40 mg PO DAILY [facility] Last Admin: 06/10/20 08:39 Dose: 40 mg Documented by: Potassium Chloride (Potassium Chloride Er 20 Meq Tablet) 20 meq PO Q6H [facility] Last Admin: 06/10/20 17:26 Dose: 20 meq Documented by: Sacubitril/Valsartan (Sacubitril/Valsartan 24-26 Mg Tablet) 1 each PO BID [facility] Last Admin: 06/10/20 17:26 Dose: 1 each Documented by: Spironolactone (Spironolactone 25 Mg Tablet) 25 mg PO DAILY [facility] Last Admin: 06/10/20 08:39 Dose: 25 mg Documented by: Tramadol HCl (Tramadol 50 Mg Tablet) 50 mg PO Q8H PRN PRN Reason: MODERATE PAIN Vitals/I&O/Wt Last Vital Signs Temp 97.6 F 06/10/20 20:00 Pulse 44 L 06/10/20 20:00 Resp 18 06/10/20 20:00 BP 138/75 06/10/20 20:00 Pulse Ox 99 06/10/20 20:00 06/10/20 06/10/20 06/10/20 06:59 14:59 22:59 Intake Total 200 / 200 240 / 440 Output Total 400 / 1800 750 / 750 1100 / 1850 Balance -400 / -1560 -550 / -550 -860 / -1410 Weight last 48 hrs Weight 265 lb 8 oz Physical Exam Narrative: EXAM NARRATIVE: GENERAL: The patient is alert and oriented times three. Not in any acute distress. Obese. HEENT: Minimal pallor, no icterus or lymphadenopathy. The pupils are reactant to light. Oral cavity: There are no mucous membrane lesions. NECK: Trachea appears to be central. No masses noted. No JVD or thyromegaly appreciated. No carotid bruit. RESPIRATORY: Chest is symmetrical. No intercostals muscle retraction or any accessory muscle activation. There is no chest wall tenderness. Breath sounds are heard bilaterally. No rales or rhonchi heard. No evidence of any consolidation. BREASTS: Deferred. HEART: The PMI could not be palpated. No other palpable precordial events. First heart sound is variable. Second heart sounds normal. No S3. Short systolic murmur in the left sternal border. No diastolic murmurs. No pericardial rub. ABDOMEN: Abdomen is slightly distended. Obese. Minimal tenderness in the left upper quadrant area. Bowel sounds are normally heard. : Deferred. RECTAL: Deferred. LYMPHATIC: No lymphadenopathy noted in the neck or groin. EXTREMITIES: Features of chronic venous stasis in the lower extremities. Peripheral pulses are palpable but weak bilaterally. 1+ edema. MUSCULOSKELETAL: No acute joint deformities or swelling. SKIN: There are no significant rashes or ecchymosis. NEUROPSYCHIATRIC: The patient is alert and oriented x3. Appears to be in a good mood. The higher functions are grossly within normal limits. No tremors or rigidity noted. Data : 06/11/20 05:20 06/11/20 05:20 A&P Assessment and plan (1) Abnormal nuclear stress test: We may go ahead and schedule the cardiac catheterization tentatively for tomorrow. Because of the elevated BUN and creatinine, I may start him on IV fluids. The BMP will be repeated in the morning. If they are acceptable, we may go ahead with the coronary angiogram. Status: Acute (2) Acute on chronic diastolic (congestive) heart failure: Clinically appears to be compensated. Continue on careful diuresis. Status: Acute (3) Chronic atrial fibrillation: Patient is with a controlled ventricular response rate. His heart rate is mostly in the low 50s in the upper 40s. May not require any specific intervention at this point. Status: Acute (4) Bradycardia: Patient may require a permanent pacer implantation, sometime down the line. As of now, the bradyarrhythmia may not be a contributing factor for his symptomatology. Consider further cardiac work-up based on the coronary angiogram. Status: Acute (5) Left upper quadrant pain: The etiology is unclear. SBP is being considered. Patient has some features of portal hypertension. Currently the symptoms have much improved. Status: Acute (6) Anasarca: Patient has significant improvement of the edema. Status: Acute (7) Hyperlipidemia: May Continue on the current medications Status: Acute Qualifiers: Hyperlipidemia type: mixed hyperlipidemia Qualified Code(s): E78.2 - Mixed hyperlipidemia (8) Hypertension: Currently is of stage II hypertension. We will continue to optimize antihypertensive medications. Status: Acute Qualifiers: Hypertension type: essential hypertension Qualified Code(s): I10 - Essential (primary) hypertension Additional A&P Information Based on the clinical progress, and the results of the above, further recommendations will be made. 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
[2020-06-10] MEDS: diphenhydrAMINE 50 mg Capsule PO (22:05)
[2020-06-10] MEDS: sodium chloride 0.9% 1,000 ML 50 ML IV (22:05)
[2020-06-10] MEDS: sodium chlor 0.45% +KCl 20 mEq 20 MEQ/1,000 ML BAG 75 MEQ IV (23:21)
[2020-06-11] VITALS (18 sets, daily range): BP systolic 118–153; BP diastolic 58–80; PULSE 45–80; RESP 15–19; TEMP 36.4–37.1; O2SAT 92–99; BMI 34.9
[2020-06-11] MEDS: levothyroxine 100 mcg Tablet PO (05:23)
[2020-06-11] MEDS: potassium chloride ER 20 mEq Tablet PO ×4 (05:23→21:48)
[2020-06-11 05:51] LABS: Basophils # 0.1 10^3/uL (0.0-0.1); Basophils % 1.4 %; Eosinophils # 0.1 10^3/uL (0.0-0.8); Hematocrit 39.1 % (42.0-52.0); Hemoglobin 12.3 g/dL (11.7-16.6); Lymphocytes # 1.4 10^3/uL (0.8-4.8); Lymphocytes % 38.6 %; Mean Corpuscular HGB Conc 31.5 g/dL (30.0-36.0); Mean Corpuscular Hemoglobin 26.4 pg (28.0-34.0); Mean Corpuscular Volume 83.9 fL (80-94); Mean Platelet Volume 9.7 fL (7.4-10.4); Monocytes # 0.5 10^3/uL (0.2-0.9); Monocytes % 12.4 %; Neutrophils # 1.64 10^3/uL (1.8-7.7); Neutrophils % 44.3 %; Nucleated Red Blood Cells % 0 %; Platelet Count 263 10^3/cmm (130-400); Red Blood Count 4.66 10^6/uL (4.1-5.3); Red Cell Distribution Width 15.2 % (12.1-15.1); White Blood Count 3.7 10^3/uL (4.0-10.0)
[2020-06-11 06:07] LABS: Anion Gap 13.8 (5-19); Blood Urea Nitrogen 30 mg/dL (8-23); Calcium 9.2 mg/dL (8.5-10.5); Carbon Dioxide 30 mmol/L (22-29); Chloride 95 mmol/L (98-107); Glucose 144 mg/dL (65-115); Magnesium 2.3 mg/dL (1.7-2.3); Osmolality Calculated 287 mOsm/kg (285-295); Potassium 4.8 mmol/L (3.5-5.1); Sodium 134 mmol/L (136-145)
[2020-06-11 06:42] LABS: Glucose Point of Care 158 mg/dL (70-110)
[2020-06-11] MEDS: ipratropium-albuterol 3 mL Neb INHALATION ×2 (07:42→20:36)
--- NOTE | 2020-06-11 08:16 | P.PN_ITS ---
Subjective Subjective: Interval history: Patient is feeling better. Has significant improvement of the shortness of breath. Still has a feeling of fatigue and dyspnea on exertion. No orthopnea. Medications: Reviewed: Yes Medication Review Details: Current Medications Albuterol/Ipratropium (Ipratropium-Albuterol 3 Ml Neb) 3 ml INHALATION Q4H PRN PRN Reason: SHORTNESS OF BREATH Last Admin: 06/11/20 07:42 Dose: 3 ml Documented by: Dextrose (Dextrose 50% Syringe 50 Ml) 25 ml IVP ONCE PRN; Protocol PRN Reason: hypoglycemia protocol Dextrose (Dextrose 50% Syringe 50 Ml) 50 ml IVP PRN PRN; Protocol PRN Reason: hypoglycemia protocol Enoxaparin Sodium (Enoxaparin 120 Mg/0.8 Ml Syringe) 120 mg SUBCUT Q12H [facility] Last Admin: 06/10/20 23:25 Dose: 120 mg Documented by: Furosemide (Furosemide 10 Mg/Ml Sdv 10ml) 60 mg IVP DAILY JAIR Gabapentin (Gabapentin 400 Mg Capsule) 800 mg PO TID [facility] Last Admin: 06/10/20 22:05 Dose: 800 mg Documented by: Glucagon (Glucagon 1 Mg/Ml Inj 1 Ml) 1 mg IM ONCE PRN; Protocol PRN Reason: Adult Acute Hypoglycemia Prot. Dextrose (D5w) 500 mls @ 100 mls/hr IV ONCE PRN; Protocol PRN Reason: Adult Acute Hypoglycemia Prot Sodium Chloride (Sodium Chloride 0.9%) 1,000 mls @ 50 mls/hr IV .Q20H ONE Stop: 06/11/20 17:20 Last Admin: 06/10/20 22:05 Dose: 50 mls/hr Documented by: Potassium Chloride/Sodium Chloride (Sodium Chlor 0.45% +Kcl 20 Meq) 20 meq in 1,000 mls @ 75 mls/hr IV .[id number] [facility] Last Admin: 06/10/20 23:21 Dose: 75 mls/hr Documented by: Insulin Aspart (Insulin Aspart 100 Unit/1 Ml) 0 unit SUBCUT WM&BEDTIME JAIR; Pro tocol Last Admin: 06/10/20 22:06 Dose: 6 unit Documented by: Levothyroxine Sodium (Levothyroxine 100 Mcg Tablet) 100 mcg PO QAM [facility] Last Admin: 06/11/20 05:23 Dose: 100 mcg Documented by: Lidocaine (Lidocaine 5% Patch) 1 patch TOPICAL [id number] [facility] Last Admin: 06/10/20 21:55 Dose: Not Given Documented by: Ondansetron HCl (Ondansetron 2 Mg/Ml Sdv 2 Ml) 4 mg IVP Q2M PRN PRN Reason: NAUSEA Oxycodone/Acetaminophen (Oxycodone-Apap 5-325 Mg Tablet) 1 tab PO BID PRN PRN Reason: pain Last Admin: 06/10/20 23:19 Dose: 1 tab Documented by: Pantoprazole Sodium (Pantoprazole Dr 40 Mg Tablet) 40 mg PO DAILY [facility] Last Admin: 06/10/20 08:39 Dose: 40 mg Documented by: Potassium Chloride (Potassium Chloride Er 20 Meq Tablet) 20 meq PO Q6H [facility] Last Admin: 06/11/20 05:23 Dose: 20 meq Documented by: Sacubitril/Valsartan (Sacubitril/Valsartan 24-26 Mg Tablet) 1 each PO BID [facility] Last Admin: 06/10/20 17:26 Dose: 1 each Documented by: Spironolactone (Spironolactone 25 Mg Tablet) 25 mg PO DAILY [facility] Last Admin: 06/10/20 08:39 Dose: 25 mg Documented by: Tramadol HCl (Tramadol 50 Mg Tablet) 50 mg PO Q8H PRN PRN Reason: MODERATE PAIN Vitals/I&O/Wt Last Vital Signs Temp 97.5 F L 06/11/20 07:17 Pulse 47 L 06/11/20 07:47 Resp 18 06/11/20 07:43 BP 153/80 06/11/20 07:17 Pulse Ox 98 06/11/20 07:43 06/10/20 06/11/20 06/11/20 22:59 06:59 14:59 Intake Total 240 / 440 Output Total 1100 / 1850 Balance -860 / -1410 Weight last 48 hrs Weight 265 lb 8 oz Physical Exam Narrative: EXAM NARRATIVE: GENERAL: The patient is alert and oriented times three. Not in any acute distress. Obese. HEENT: Minimal pallor, no icterus or lymphadenopathy. The pupils are reactant to light. Oral cavity: There are no mucous membrane lesions. NECK: Trachea appears to be central. No masses noted. No JVD or thyromegaly appreciated. No carotid bruit. RESPIRATORY: Chest is symmetrical. No intercostals muscle retraction or any accessory muscle activation. There is no chest wall tenderness. Breath sounds are heard bilaterally. No rales or rhonchi heard. No evidence of any consolidation. BREASTS: Deferred. HEART: The heart sounds are normal no S3 or S4. Short systolic murmur in the lower sternal border. No diastolic murmurs. ABDOMEN: Abdomen is slightly distended. Obese. Minimal tenderness in the left upper quadrant area. Bowel sounds are normally heard. : Deferred. RECTAL: Deferred. LYMPHATIC: No lymphadenopathy noted in the neck or groin. EXTREMITIES: Features of chronic venous stasis in the lower extremities. Peripheral pulses are palpable but weak bilaterally. 1+ edema. MUSCULOSKELETAL: No acute joint deformities or swelling. SKIN: There are no significant rashes or ecchymosis. NEUROPSYCHIATRIC: The patient is alert and oriented x3. Appears to be in a good mood. The higher functions are grossly within normal limits. No tremors or rigidity noted. Data : 06/11/20 05:20 06/11/20 05:20 Other Labs: Laboratory Last Values WBC 3.7 10^3/uL (4.0-10.0) L 06/11/20 05:20 RBC 4.66 10^6/uL (4.1-5.3) 06/11/20 05:20 Hgb 12.3 g/dL (11.7-16.6) 06/11/20 05:20 Hct 39.1 % (42.0-52.0) L 06/11/20 05:20 MCV 83.9 fL (80-94) 06/11/20 05:20 MCH 26.4 pg (28.0-34.0) L 06/11/20 05:20 MCHC 31.5 g/dL (30.0-36.0) 06/11/20 05:20 RDW 15.2 % (12.1-15.1) H 06/11/20 05:20 Plt Count 263 10^3/cmm (130-400) 06/11/20 05:20 MPV 9.7 fL (7.4-10.4) 06/11/20 05:20 Neut % (Auto) 44.3 % 06/11/20 05:20 Lymph % (Auto) 38.6 % 06/11/20 05:20 [place] % (Auto) 12.4 % 06/11/20 05:20 Eos % (Auto) 3.0 % 06/11/20 05:20 Baso % (Auto) 1.4 % 06/11/20 05:20 Neut # (Auto) 1.64 10^3/uL (1.8-7.7) L 06/11/20 05:20 Lymph # (Auto) 1.4 10^3/uL (0.8-4.8) 06/11/20 05:20 [place] # (Auto) 0.5 10^3/uL (0.2-0.9) 06/11/20 05:20 Eos # (Auto) 0.1 10^3/uL (0.0-0.8) 06/11/20 05:20 Baso # (Auto) 0.1 10^3/uL (0.0-0.1) 06/11/20 05:20 Nucleated RBC % (auto) 0 % 06/11/20 05:20 Nucleated RBCs # 0.0 /100WBC 06/11/20 05:20 PT 19.50 SECONDS (12.1-14.9) H 06/03/20 21:35 INR 1.59 (0.8-1.2) H 06/03/20 21:35 APTT 43.0 SECONDS (23.9-36.7) H 06/03/20 21:35 Fibrinogen 560 mg/dL (174-498) H 06/03/20 21:35 D-Dimer 4.15 ug/mIFEU (0-0.59) H 06/03/20 13:25 Sodium 134 mmol/L (136-145) L 06/11/20 05:20 Potassium 4.8 mmol/L (3.5-5.1) 06/11/20 05:20 Chloride 95 mmol/L (98-107) L 06/11/20 05:20 Carbon Dioxide 30 mmol/L (22-29) H 06/11/20 05:20 Anion Gap 13.8 (5-19) 06/11/20 05:20 BUN 30 mg/dL (8-23) H 06/11/20 05:20 Creatinine 1.1 mg/dL (0.7-1.2) 06/11/20 05:20 GFR Calculation Not Reportable 06/11/20 05:20 Glucose 144 mg/dL (65-115) H 06/11/20 05:20 POC Glucose 158 mg/dL (70-110) H 06/11/20 06:29 Calculated Osmolality 287 mOsm/kg (285-295) 06/11/20 05:20 Lactate 1.9 mmol/L (0.5-2.2) 06/03/20 13:25 Calcium 9.2 mg/dL (8.5-10.5) 06/11/20 05:20 Magnesium 2.3 mg/dL (1.7-2.3) 06/11/20 05:20 Total Bilirubin 1.0 mg/dL (0.15-1.2) 06/10/20 09:18 AST 40 U/L (0-40) 06/10/20 09:18 ALT 17 U/L (0-41) 06/10/20 09:18 Alkaline Phosphatase 128 IU/L (40-130) 06/10/20 09:18 Troponin T Baseline 51 ng/L (0-15) H 06/03/20 13:25 Troponin T 120 Minute 48.98 ng/L (0-15) H 06/03/20 15:27 Delta Troponin T -2.02 ABS# (0-10) L 06/03/20 15:27 Troponin T Hi Sens 6Hr 50.30 ng/L (0-15) H 06/03/20 19:33 Troponin T Hi Sens 6Hr Delta -0.70 ng/L (0-12) L 06/03/20 19:33 NT-Pro-B Natriuret Pep 1472 pg/mL (0-450) H 06/03/20 13:25 Total Protein 8.0 g/dL (6.6-8.7) 06/10/20 09:18 Albumin 4.1 g/dL (3.5-5.2) 06/10/20 09:18 Globulin 3.9 g/dL (1.3-4.6) 06/10/20 09:18 Chtoh-1-Vgytmknsxte 231 mg/dL (83-199) H 06/03/20 21:35 Lipase 33 U/L (13-60) 06/03/20 13:25 Urine Color Yellow (Yellow) 06/03/20 14:22 Urine Appearance Clear (CLEAR) 06/03/20 14:22 Urine pH 6.5 (5-7) 06/03/20 14:22 Ur Specific [place] 1.015 (1.005-1.030) 06/03/20 14:22 Urine Protein Trace (Negative) 06/03/20 14:22 Urine Glucose (UA) Norm (Normal) 06/03/20 14:22 Urine Ketones Negative (Negative) 06/03/20 14:22 Urine Blood 3+ (Negative) H 06/03/20 14:22 Urine Nitrate Negative (Negative) 06/03/20 14:22 Urine Bilirubin 1+ (Negative) H 06/03/20 14:22 Urine Urobilinogen 1 mg/dL (Negative) H 06/03/20 14:22 Ur Leukocyte Esterase Negative (Negative) 06/03/20 14:22 Urine RBC 25-40 /hpf (0-2) H 06/03/20 14:22 Urine WBC 0-4 /hpf (0-5) H 06/03/20 14:22 Ur Squamous Epith Cells 0-4 /hpf (0-5) H 06/03/20 14:22 Amorphous Sediment Not Reportable 06/03/20 14:22 Urine Bacteria 2+ /hpf (NONE) H 06/03/20 14:22 Hepatitis A IgM Ab Non-reactive (Nonreactive) 06/03/20 15:27 Hep Bs Antigen Non-reactive (Nonreactive) 06/03/20 15:27 Hep B Core IgM Ab Non-reactive (Nonreactive) 06/03/20 15:27 Hepatitis C Antibody Non-reactive (Nonreactive) 06/03/20 15:27 SARS-CoV-2 Ag (Rapid) Negative (Negative) 06/03/20 17:48 A&P Assessment and plan (1) Abnormal nuclear stress test: Patient was scheduled for the cardiac arrest in today. However the cardiac Clearing Distribution Clerk is down. For this reason, the procedure had to be postponed. May continue on the current medication for the time being. Status: Acute (2) Acute on chronic diastolic (congestive) heart failure: Clinically appears to be compensated. Continue on careful diuresis. Status: Acute (3) Chronic atrial fibrillation: Patient is with a controlled ventricular response rate. His heart rate is mostly in the low 50s in the upper 40s. May not require any specific intervention at this point. Status: Acute (4) Bradycardia: Patient may require a permanent pacer implantation, sometime down the line. As of now, the bradyarrhythmia may not be a contributing factor for his symptomatology. Consider further cardiac work-up based on the coronary angiogram. Status: Acute (5) Left upper quadrant pain: The etiology is unclear. SBP is being considered. Patient has some features of portal hypertension. Currently the symptoms have much improved. Status: Acute (6) Anasarca: Patient has significant improvement of the edema. Status: Acute (7) Hyperlipidemia: May Continue on the current medications Status: Acute Qualifiers: Hyperlipidemia type: mixed hyperlipidemia Qualified Code(s): E78.2 - Mixed hyperlipidemia (8) Hypertension: The blood pressure is getting under control. May continue on the current medications. Status: Acute Qualifiers: Hypertension type: essential hypertension Qualified Code(s): I10 - Essential (primary) hypertension Additional A&P Information The cardiac catheterization is rescheduled for tomorrow. Patient be kept n.p.o. after early head start director breakfast. Based on the results of the cardiac catheterization data, further management decisions will be made. 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
[2020-06-11 10:35] LABS: Glucose Point of Care 221 mg/dL (70-110)
[2020-06-11] MEDS: spironolactone 25 mg Tablet PO (11:17)
[2020-06-11] MEDS: pantoprazole DR 40 mg Tablet PO (11:17)
[2020-06-11] MEDS: gabapentin 400 mg Capsule 800 MG PO ×3 (11:17→21:47)
[2020-06-11] MEDS: sacubitril/valsartan 24-26 mg Tablet 1 EACH PO ×2 (11:17→17:41)
[2020-06-11] MEDS: lidocaine 5% Patch 1 PATCH TOPICAL (11:17)
[2020-06-11] MEDS: sodium chloride 0.9% 1,000 ML 50 ML IV (11:18)
[2020-06-11] MEDS: enoxaparin 120 mg/0.8 mL Syringe SUBCUT (11:20)
--- NOTE | 2020-06-11 12:10 | PC.CHAP ---
Pastoral Care Encounter/Spiritual Assessment Type of Contact [] Declined department head [employer] visit [] Patient/Family/Request visit [] Outpatient visit [] Follow-up visit [] Physician referral [] Code/Alert [X] Routine visit [] Staff referral [] Actively dying [] Patient sleeping [] Family support [] [] Out of room [] Palliative care [] [] Receiving care in room [] Pre-surgical visit [] Trauma [] Long length of stay [] ICU visit [] Other: Relational/Emotional Strength [] Patient feels connected with others/family/visitors/staff [] Distress [] Loneliness/isolation [] Abandonment Spirituality of Patient [X] Person of Isabel [X] Attends Religion of their Isabel []X Believes in Prayer [X] Reads Bible or Buddhist materials [] There are Spiritual issues to be addressed Last Puller Interventions [X] Prayer [X] Active listening [X] Non-anxious presence [X] Spiritual/emotional support [] Crisis/trauma care [] Spiritual counseling [] Bereavement support [] Provided bereavement packet [] Provided Bible/devotional materials [] Provided toy/stuffed animal, coloring book to patient or family member [] Provided Communion [] Anointing/[place] [] Salvation [X] Completed spiritual assessment [] Other: Impact on Illness or Injury [] Angry [] Fearful [X] Anxious [] Often cries [] Exhaustion [] Unable to work [] Unable to attend sabianist [] Unable to walk/stand [] Unable to read [] Unable to drive [] Unable to eat/drink [] Unable to sleep [] Unable to be with family [] Patient intubated [] Other: Summary SO was visiting. Pt has been in for about a week and hoping he can have his procedure done today so he can look at going home tomorrow. Time spent with patient 10m
[2020-06-11] MEDS: oxyCODONE-APAP 5-325 mg Tablet 1 TAB PO ×2 (14:03→22:34)
[2020-06-11 16:35] LABS: Glucose Point of Care 114 mg/dL (70-110)
--- NOTE | 2020-06-11 17:11 | PM.PN ---
Subjective Subjective: Interval history: Patient was seen and examined this morning.No acute event overnight. He has remained afebrile.He is complaining of some left lower quadrant discomfort. Which has improved significantly since admission. 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 Medications: Reviewed: Yes Medication Review Details: Current Medications Apixaban (Apixaban 5 Mg Tablet) 5 mg PO BID JAIR Dextrose (Dextrose 50% Syringe 50 Ml) 25 ml IVP ONCE PRN; Protocol PRN Reason: hypoglycemia protocol Dextrose (Dextrose 50% Syringe 50 Ml) 50 ml IVP PRN PRN; Protocol PRN Reason: hypoglycemia protocol Furosemide (Furosemide 10 Mg/Ml Sdv 10ml) 60 mg IVP Q8H JAIR Last Admin: 06/06/20 06:32 Dose: 60 mg Documented by: Gabapentin (Gabapentin 400 Mg Capsule) 800 mg PO TID JAIR Last Admin: 06/05/20 20:47 Dose: 800 mg Documented by: Glucagon (Glucagon 1 Mg/Ml Inj 1 Ml) 1 mg IM ONCE PRN; Protocol PRN Reason: Adult Acute Hypoglycemia Prot. Dextrose (D5w) 500 mls @ 100 mls/hr IV ONCE PRN; Protocol PRN Reason: Adult Acute Hypoglycemia Prot Ceftriaxone Sodium 1,000 mg/ (Sodium Chloride) 50 mls @ 100 mls/hr IV Q24H [facility]; Protocol Last Infusion: 06/06/20 05:22 Dose: Infused Documented by: Insulin Aspart (Insulin Aspart 100 Unit/1 Ml) 0 unit SUBCUT WM&BEDTIME [facility]; Protocol Last Admin: 06/06/20 08:02 Dose: Not Given Documented by: Levothyroxine Sodium (Levothyroxine 100 Mcg Tablet) 100 mcg PO QAM [facility] Last Admin: 06/06/20 05:19 Dose: 100 mcg Documented by: Losartan Potassium (Losartan 50 Mg Tablet) 50 mg PO QAM [facility] Last Admin: 06/06/20 05:19 Dose: 50 mg Documented by: Ondansetron HCl (Ondansetron 2 Mg/Ml Sdv 2 Ml) 4 mg IVP Q2M PRN PRN Reason: NAUSEA Oxycodone/Acetaminophen (Oxycodone-Apap 5-325 Mg Tablet) 1 tab PO BID PRN PRN Reason: pain Last Admin: 06/03/20 22:20 Dose: 1 tab Documented by: Pantoprazole Sodium (Pantoprazole Dr 40 Mg Tablet) 40 mg PO DAILY [facility] Last Admin: 06/05/20 09:26 Dose: 40 mg Documented by: Potassium Chloride (Potassium Chloride Er 20 Meq Tablet) 20 meq PO Q6H [facility] Last Admin: 06/06/20 05:17 Dose: 20 meq Documented by: Spironolactone (Spironolactone 25 Mg Tablet) 25 mg PO DAILY [facility] Last Admin: 06/05/20 09:26 Dose: 25 mg Documented by: Vitals/I&O/Wt Last Vital Signs Temp 97.8 F 06/11/20 15:26 Pulse 45 L 06/11/20 15:26 Resp 16 06/11/20 15:26 BP 127/70 06/11/20 15:26 Pulse Ox 97 06/11/20 15:26 06/11/20 06/11/20 06/11/20 06:59 14:59 22:59 Intake Total 1050 / 1050 Output Total 200 / 200 300 / 500 Balance 850 / 850 -300 / 550 Weight last 48 hrs Weight 120.344 kg Weight 120.429 kg Physical Exam Const: COMMON NORMALS: patient oriented x3 HENMT: COMMON NORMALS: normocephalic and atraumatic HEAD & SCALP: normocephalic and atraumatic Resp: COMMON NORMALS: clear to auscultation bilaterally EFFORT & INSPECTION: Yes symmetric chest movement AUSCULTATION: clear to auscultation bilaterally Cardio: COMMON NORMALS: regular rate, regular rhythm, S1 normal heart sound present, S2 normal heart sound present, No gallops present (Cardio), No murmurs present (Cardio), No rub (Cardio) and Peripheral pulses 2+ throughout RATE: regular rate RHYTHM: regular rhythm HEART SOUNDS: S1 normal heart sound present and S2 normal heart sound present PERIPHERAL PULSES: Peripheral pulses 2+ throughout GI: COMMON NORMALS: Normal to inspection, nondistended, normoactive bowel sounds present, Soft to palpation, non-tender, No hepatosplenomegaly present and no masses AUSCULTATION: Yes normoactive bowel sounds PALPATION: Yes Soft to palpation and Yes No hepatosplenomegaly present RECTAL EXAM: Yes deferred Extremity: OTHER: Chronic venous stasis in lower extremities. Peripheral pulses are palpable but weak bilaterally. 1-2+ edema Neuro: COMMON NORMALS: patient oriented x3 Data : 06/11/20 05:20 06/11/20 05:20 A&P Assessment and plan (1) Left upper quadrant pain: Status: Acute (2) Cirrhosis: Status: Acute (3) BRAIN (acute kidney injury): Status: Acute (4) Anasarca: Status: Acute (5) Chronic venous insufficiency: Status: Acute (6) Bradycardia: Status: Acute (7) Abnormal nuclear stress test: Status: Acute (8) Acute exacerbation of CHF (congestive heart failure): Status: Acute Additional A&P Information # Acute on chronic combined systolic and diastolic heart failure Appreciate cardiology recommendations Continue Lasix to 60 mg IV every 8 along with concomitant potassium supplementation. Additionally started on Entresto after discontinuing losartan. Currently tolerating, creatinine and lites are stable. Measure urine output closely. Patient encouraged to urinate exclusively in the urinal or the provided hat. At this present time we are unable to monitor an accurate output. Measure daily weights. Patient has generalized anasarca including fairly hepatic and perisplenic ascites which is currently not amenable to paracentesis. #CKD: Baseline SCR :1.1 - 1.4 Will Hold Lasix dose for today Monitor SCR. #Abnormal stress test Appreciate cardiology recommendations Small areas of reversible ischemia Due for cardiac catheterization #Left upper quadrant pain, this is now resolved CT abdomen revealed perisplenic fluid collection with underlying ascites consistent with portal hypertension Overall unclear etiology of left upper quadrant pain, possible that ascites may be contributing here, unable to get paracentesis as not enough fluid to safely drain at this present time. CT of the abdomen without any acute intra-abdominal process Currently tolerating her diet, abdominal pain is improved. suspicion for SBP is low at this time, however since unable to get paracentesis, will treat with empiric 5-day regimen of ceftriaxone, completed today. Discontinued ceftriaxone Cholelithiasis without active signs of cholecystitis #Liver cirrhosis Unclear etiology, however may be related to congestive hepatopathy due to heart failure Hepatitis panel negative No signs of Parkinson's, Asif's disease unlikely No signs of portal vein thrombosis on abdominal ultrasound #A. fib with bradycardia Monitor for now, not symptomatic from the bradycardia. May need a pacemaker down the line Eliquis has been placed on hold, converted to full dose Lovenox instead in anticipation of upcoming procedure # COPD Patient is endorsing using BiPAP at night and 1 to 2 L at home in the morning No acute exacerbation Sodium restricted diet, consistent carb diet prn nebulization Full code DVT prophylaxis: Obi Attestations Medical Necessity Statement*: Patient is to be in hospital for decompensated heart, abnormal stress test, awaiting cardiac cath. Coding Level of Care Code Acute Communications Technologist for [facility] Fwd Diagnoses Left upper quadrant pain R10.12 Cirrhosis K74.60 BRAIN (acute kidney injury) N17.9 Anasarca R60.1 Chronic venous insufficiency I87.2 Bradycardia R00.1 Abnormal nuclear stress test R94.39 Acute exacerbation of CHF (congestive heart failure) I50.9
[2020-06-11 21:10] LABS: Glucose Point of Care 293 mg/dL (70-110)
[2020-06-12] VITALS (24 sets, daily range): BP systolic 106–147; BP diastolic 45–81; PULSE 44–60; RESP 16–20; TEMP 36.3–37.1; O2SAT 93–98; BMI 35.4
[2020-06-12] MEDS: enoxaparin 120 mg/0.8 mL Syringe SUBCUT ×2 (01:45→12:08)
[2020-06-12] MEDS: potassium chloride ER 20 mEq Tablet PO (06:17)
[2020-06-12] MEDS: levothyroxine 100 mcg Tablet PO (06:17)
[2020-06-12 06:18] LABS: Basophils % 0.8 %; Eosinophils # 0.1 10^3/uL (0.0-0.8); Eosinophils % 2.7 %; Hematocrit 39.3 % (42.0-52.0); Hemoglobin 11.9 g/dL (11.7-16.6); Lymphocytes # 1.2 10^3/uL (0.8-4.8); Lymphocytes % 22.5 %; Mean Corpuscular HGB Conc 30.3 g/dL (30.0-36.0); Mean Corpuscular Volume 85.8 fL (80-94); Mean Platelet Volume 10.1 fL (7.4-10.4); Monocytes # 0.5 10^3/uL (0.2-0.9); Monocytes % 10.5 %; Neutrophils # 3.26 10^3/uL (1.8-7.7); Neutrophils % 63.3 %; Nucleated Red Blood Cells % 0 %; Platelet Count 242 10^3/cmm (130-400); Red Blood Count 4.58 10^6/uL (4.1-5.3); Red Cell Distribution Width 15.2 % (12.1-15.1); White Blood Count 5.2 10^3/uL (4.0-10.0)
[2020-06-12 06:43] LABS: Anion Gap 14.3 (5-19); Blood Urea Nitrogen 22 mg/dL (8-23); Carbon Dioxide 27 mmol/L (22-29); Chloride 100 mmol/L (98-107); Glucose 152 mg/dL (65-115); Osmolality Calculated 288 mOsm/kg (285-295); Potassium 5.3 mmol/L (3.5-5.1); Sodium 136 mmol/L (136-145)
[2020-06-12 06:55] LABS: Glucose Point of Care 153 mg/dL (70-110)
[2020-06-12] MEDS: pantoprazole DR 40 mg Tablet PO (09:17)
[2020-06-12] MEDS: lidocaine 5% Patch 1 PATCH TOPICAL (09:17)
[2020-06-12] MEDS: gabapentin 400 mg Capsule 800 MG PO ×2 (09:17→14:01)
[2020-06-12] MEDS: spironolactone 25 mg Tablet PO (09:17)
--- NOTE | 2020-06-12 09:31 | PM.PN ---
Subjective Subjective: Interval history: Patient is feeling okay. Continues to have shortness of breath with activities. No chest pain. No fever. No new symptoms. Medications: Reviewed: Yes Medication Review Details: Current Medications Albuterol/Ipratropium (Ipratropium-Albuterol 3 Ml Neb) 3 ml INHALATION Q4H PRN PRN Reason: SHORTNESS OF BREATH Last Admin: 06/11/20 20:36 Dose: 3 ml Documented by: Dextrose (Dextrose 50% Syringe 50 Ml) 25 ml IVP ONCE PRN; Protocol PRN Reason: hypoglycemia protocol Dextrose (Dextrose 50% Syringe 50 Ml) 50 ml IVP PRN PRN; Protocol PRN Reason: hypoglycemia protocol Enoxaparin Sodium (Enoxaparin 120 Mg/0.8 Ml Syringe) 120 mg SUBCUT Q12H [facility] Last Admin: 06/12/20 01:45 Dose: 120 mg Documented by: Furosemide (Furosemide 10 Mg/Ml Sdv 10ml) 60 mg IVP DAILY [facility] Gabapentin (Gabapentin 400 Mg Capsule) 800 mg PO TID [facility] Last Admin: 06/11/20 21:47 Dose: 800 mg Documented by: Glucagon (Glucagon 1 Mg/Ml Inj 1 Ml) 1 mg IM ONCE PRN; Protocol PRN Reason: Adult Acute Hypoglycemia Prot. Dextrose (D5w) 500 mls @ 100 mls/hr IV ONCE PRN; Protocol PRN Reason: Adult Acute Hypoglycemia Prot Insulin Aspart (Insulin Aspart 100 Unit/1 Ml) 0 unit SUBCUT WM&BEDTIME [facility]; Protocol Last Admin: 06/11/20 21:46 Dose: 10 unit Documented by: Levothyroxine Sodium (Levothyroxine 100 Mcg Tablet) 100 mcg PO QAM [facility] Last Admin: 06/12/20 06:17 Dose: 100 mcg Documented by: Lidocaine (Lidocaine 5% Patch) 1 patch TOPICAL [id number] [facility] Last Admin: 06/11/20 21:48 Dose: Not Given Documented by: Ondansetron HCl (Ondansetron 2 Mg/Ml Sdv 2 Ml) 4 mg IVP Q2M PRN PRN Reason: NAUSEA Oxycodone/Acetaminophen (Oxycodone-Apap 5-325 Mg Tablet) 1 tab PO BID PRN PRN Reason: pain Last Admin: 06/11/20 22:34 Dose: 1 tab Documented by: Pantoprazole Sodium (Pantoprazole Dr 40 Mg Tablet) 40 mg PO DAILY [facility] Last Admin: 06/11/20 11:17 Dose: 40 mg Documented by: Potassium Chloride (Potassium Chloride Er 20 Meq Tablet) 20 meq PO Q6H [facility] Last Admin: 06/12/20 06:17 Dose: 20 meq Documented by: Sacubitril/Valsartan (Sacubitril/Valsartan 24-26 Mg Tablet) 1 each PO BID [facility] Last Admin: 06/11/20 17:41 Dose: 1 each Documented by: Spironolactone (Spironolactone 25 Mg Tablet) 25 mg PO DAILY [facility] Last Admin: 06/11/20 11:17 Dose: 25 mg Documented by: Tramadol HCl (Tramadol 50 Mg Tablet) 50 mg PO Q8H PRN PRN Reason: MODERATE PAIN Vitals/I&O/Wt Last Vital Signs Temp 98.7 F 06/12/20 08:00 Pulse 48 L 06/12/20 09:28 Resp 18 06/12/20 09:28 BP 147/81 06/12/20 08:00 Pulse Ox 98 06/12/20 09:28 06/11/20 06/12/20 06/12/20 22:59 06:59 14:59 Intake Total 1200 / 2250 1000 / 3250 240 / 240 Output Total 600 / 800 500 / 1300 Balance 600 / 1450 500 / 1950 240 / 240 Weight last 48 hrs Weight 265 lb 5 oz Weight 265 lb 8 oz Physical Exam Narrative: EXAM NARRATIVE: GENERAL: The patient is alert and oriented times three. Not in any acute distress. Obese. HEENT: Minimal pallor, no icterus or lymphadenopathy. The pupils are reactant to light. Oral cavity: There are no mucous membrane lesions. NECK: Trachea appears to be central. No masses noted. No JVD or thyromegaly appreciated. No carotid bruit. RESPIRATORY: Chest is symmetrical. No intercostals muscle retraction or any accessory muscle activation. There is no chest wall tenderness. Breath sounds are heard bilaterally. No rales or rhonchi heard. No evidence of any consolidation. BREASTS: Deferred. HEART: The heart sounds are normal no S3 or S4. Short systolic murmur in the lower sternal border. No diastolic murmurs. ABDOMEN: Abdomen is slightly distended. Obese. Minimal tenderness in the left upper quadrant area. Bowel sounds are normally heard. : Deferred. RECTAL: Deferred. LYMPHATIC: No lymphadenopathy noted in the neck or groin. EXTREMITIES: Features of chronic venous stasis in the lower extremities. Peripheral pulses are palpable but weak bilaterally. 1+ edema. MUSCULOSKELETAL: No acute joint deformities or swelling. SKIN: There are no significant rashes or ecchymosis. NEUROPSYCHIATRIC: The patient is alert and oriented x3. Appears to be in a good mood. The higher functions are grossly within normal limits. No tremors or rigidity noted. Data : 06/12/20 05:20 06/12/20 05:20 Other Labs: Laboratory Last Values WBC 5.2 10^3/uL (4.0-10.0) 06/12/20 05:20 RBC 4.58 10^6/uL (4.1-5.3) 06/12/20 05:20 Hgb 11.9 g/dL (11.7-16.6) 06/12/20 05:20 Hct 39.3 % (42.0-52.0) L 06/12/20 05:20 MCV 85.8 fL (80-94) 06/12/20 05:20 MCH 26.0 pg (28.0-34.0) L 06/12/20 05:20 MCHC 30.3 g/dL (30.0-36.0) 06/12/20 05:20 RDW 15.2 % (12.1-15.1) H 06/12/20 05:20 Plt Count 242 10^3/cmm (130-400) 06/12/20 05:20 MPV 10.1 fL (7.4-10.4) 06/12/20 05:20 Neut % (Auto) 63.3 % 06/12/20 05:20 Lymph % (Auto) 22.5 % 06/12/20 05:20 [place] % (Auto) 10.5 % 06/12/20 05:20 Eos % (Auto) 2.7 % 06/12/20 05:20 Baso % (Auto) 0.8 % 06/12/20 05:20 Neut # (Auto) 3.26 10^3/uL (1.8-7.7) 06/12/20 05:20 Lymph # (Auto) 1.2 10^3/uL (0.8-4.8) 06/12/20 05:20 [place] # (Auto) 0.5 10^3/uL (0.2-0.9) 06/12/20 05:20 Eos # (Auto) 0.1 10^3/uL (0.0-0.8) 06/12/20 05:20 Baso # (Auto) 0.0 10^3/uL (0.0-0.1) 06/12/20 05:20 Nucleated RBC % (auto) 0 % 06/12/20 05:20 Nucleated RBCs # 0.0 /100WBC 06/12/20 05:20 PT 19.50 SECONDS (12.1-14.9) H 06/03/20 21:35 INR 1.59 (0.8-1.2) H 06/03/20 21:35 APTT 43.0 SECONDS (23.9-36.7) H 06/03/20 21:35 Fibrinogen 560 mg/dL (174-498) H 06/03/20 21:35 D-Dimer 4.15 ug/mIFEU (0-0.59) H 06/03/20 13:25 Sodium 136 mmol/L (136-145) 06/12/20 05:20 Potassium 5.3 mmol/L (3.5-5.1) H 06/12/20 05:20 Chloride 100 mmol/L (98-107) 06/12/20 05:20 Carbon Dioxide 27 mmol/L (22-29) 06/12/20 05:20 Anion Gap 14.3 (5-19) 06/12/20 05:20 BUN 22 mg/dL (8-23) 06/12/20 05:20 Creatinine 1.0 mg/dL (0.7-1.2) 06/12/20 05:20 GFR Calculation Not Reportable 06/12/20 05:20 Glucose 152 mg/dL (65-115) H 06/12/20 05:20 POC Glucose 153 mg/dL (70-110) H 06/12/20 06:49 Calculated Osmolality 288 mOsm/kg (285-295) 06/12/20 05:20 Lactate 1.9 mmol/L (0.5-2.2) 06/03/20 13:25 Calcium 9.0 mg/dL (8.5-10.5) 06/12/20 05:20 Magnesium 2.3 mg/dL (1.7-2.3) 06/11/20 05:20 Total Bilirubin 1.0 mg/dL (0.15-1.2) 06/10/20 09:18 AST 40 U/L (0-40) 06/10/20 09:18 ALT 17 U/L (0-41) 06/10/20 09:18 Alkaline Phosphatase 128 IU/L (40-130) 06/10/20 09:18 Troponin T Baseline 51 ng/L (0-15) H 06/03/20 13:25 Troponin T 120 Minute 48.98 ng/L (0-15) H 06/03/20 15:27 Delta Troponin T -2.02 ABS# (0-10) L 06/03/20 15:27 Troponin T Hi Sens 6Hr 50.30 ng/L (0-15) H 06/03/20 19:33 Troponin T Hi Sens 6Hr Delta -0.70 ng/L (0-12) L 06/03/20 19:33 NT-Pro-B Natriuret Pep 1472 pg/mL (0-450) H 06/03/20 13:25 Total Protein 8.0 g/dL (6.6-8.7) 06/10/20 09:18 Albumin 4.1 g/dL (3.5-5.2) 06/10/20 09:18 Globulin 3.9 g/dL (1.3-4.6) 06/10/20 09:18 [id number] 231 mg/dL (83-199) H 06/03/20 21:35 Lipase 33 U/L (13-60) 06/03/20 13:25 Urine Color Yellow (Yellow) 06/03/20 14:22 Urine Appearance Clear (CLEAR) 06/03/20 14:22 Urine pH 6.5 (5-7) 06/03/20 14:22 Ur Specific [place] 1.015 (1.005-1.030) 06/03/20 14:22 Urine Protein Trace (Negative) 06/03/20 14:22 Urine Glucose (UA) Norm (Normal) 06/03/20 14:22 Urine Ketones Negative (Negative) 06/03/20 14:22 Urine Blood 3+ (Negative) H 06/03/20 14:22 Urine Nitrate Negative (Negative) 06/03/20 14:22 Urine Bilirubin 1+ (Negative) H 06/03/20 14:22 Urine Urobilinogen 1 mg/dL (Negative) H 06/03/20 14:22 Ur Leukocyte Esterase Negative (Negative) 06/03/20 14:22 Urine RBC 25-40 /hpf (0-2) H 06/03/20 14:22 Urine WBC 0-4 /hpf (0-5) H 06/03/20 14:22 Ur Squamous Epith Cells 0-4 /hpf (0-5) H 06/03/20 14:22 Amorphous Sediment Not Reportable 06/03/20 14:22 Urine Bacteria 2+ /hpf (NONE) H 06/03/20 14:22 Hepatitis A IgM Ab Non-reactive (Nonreactive) 06/03/20 15:27 Hep Bs Antigen Non-reactive (Nonreactive) 06/03/20 15:27 Hep B Core IgM Ab Non-reactive (Nonreactive) 06/03/20 15:27 Hepatitis C Antibody Non-reactive (Nonreactive) 06/03/20 15:27 SARS-CoV-2 Ag (Rapid) Negative (Negative) 06/03/20 17:48 A&P Assessment and plan (1) Abnormal nuclear stress test: Patient the patient is rescheduled for the cardiac colorization today. The risk of bleeding, hematoma, vascular injury, myocardial infarction, CVA, renal failure and other concomitant complications were explained in detail. Patient understood this well and consented to proceed. Status: Acute (2) Acute on chronic diastolic (congestive) heart failure: Clinically appears to be compensated. Continue on careful diuresis. Status: Acute (3) Chronic atrial fibrillation: Patient is with a controlled ventricular response rate. He has been having episodes of bradycardia with a heart rate in the 30s and low 40s. Patient may benefit from a permanent pacer implantation. We may consider this after the cardiac catheterization. Status: Acute (4) Bradycardia: Patient may require a permanent pacer implantation, sometime down the line. As of now, the bradyarrhythmia may not be a contributing factor for his symptomatology. Consider further cardiac work-up based on the coronary angiogram. Status: Acute (5) Left upper quadrant pain: The etiology is unclear. Currently he has minimal pain. Afebrile. Status: Acute (6) Anasarca: Patient has significant improvement of the edema. Status: Acute (7) Hyperlipidemia: May Continue on the current medications Status: Acute Qualifiers: Hyperlipidemia type: mixed hyperlipidemia Qualified Code(s): E78.2 - Mixed hyperlipidemia (8) Hypertension: The blood pressure is getting under control. May continue on the current medications. Status: Acute Qualifiers: Hypertension type: essential hypertension Qualified Code(s): I10 - Essential (primary) hypertension Additional A&P Information Based on the cardiac catheterization data, further management decisions will be made. Attestations Medical Necessity Statement*: Patient requires continued hospital stay for close monitoring and further management Coding Level of Care Code Acute Detail Supervisor for [facility] Fwd Diagnoses Abnormal nuclear stress test R94.39 Acute on chronic diastolic (congestive) heart failure I50.33 Chronic atrial fibrillation I48.20 Bradycardia R00.1 Left upper quadrant pain R10.12 Anasarca R60.1 Hyperlipidemia E78.2 Hyperlipidemia type: mixed hyperlipidemia Hypertension I10 Hypertension type: essential hypertension
[2020-06-12] MEDS: oxyCODONE-APAP 5-325 mg Tablet 1 TAB PO (10:49)
--- NOTE | 2020-06-12 11:37 | PC.SOCIAL ---
IMM Update Pg. 2 of IMM updated and reviewed with patient who verbalized understanding. Copy provided.
[2020-06-12 11:56] LABS: Glucose Point of Care 174 mg/dL (70-110)
[2020-06-12] MEDS: sacubitril/valsartan 24-26 mg Tablet 1 EACH PO (12:09)
--- NOTE | 2020-06-12 15:44 | PM.PN ---
Subjective Subjective: Interval history: Patient was seen and examined this morning.No acute event overnight. He has remained afebrile.He was complaining of rt posterior thigh pain.Likely 2/2 to prolong laying in bed.He should be fine once he become little more mobile. Patient is scheduled for cath today. Medications: Reviewed: Yes Medication Review Details: Current Medications Apixaban (Apixaban 5 Mg Tablet) 5 mg PO BID JIAR Dextrose (Dextrose 50% Syringe 50 Ml) 25 ml IVP ONCE PRN; Protocol PRN Reason: hypoglycemia protocol Dextrose (Dextrose 50% Syringe 50 Ml) 50 ml IVP PRN PRN; Protocol PRN Reason: hypoglycemia protocol Furosemide (Furosemide 10 Mg/Ml Sdv 10ml) 60 mg IVP Q8H JAIR Last Admin: 06/06/20 06:32 Dose: 60 mg Documented by: Gabapentin (Gabapentin 400 Mg Capsule) 800 mg PO TID JAIR Last Admin: 06/05/20 20:47 Dose: 800 mg Documented by: Glucagon (Glucagon 1 Mg/Ml Inj 1 Ml) 1 mg IM ONCE PRN; Protocol PRN Reason: Adult Acute Hypoglycemia Prot. Dextrose (D5w) 500 mls @ 100 mls/hr IV ONCE PRN; Protocol PRN Reason: Adult Acute Hypoglycemia Prot Ceftriaxone Sodium 1,000 mg/ (Sodium Chloride) 50 mls @ 100 mls/hr IV Q24H [facility]; Protocol Last Infusion: 06/06/20 05:22 Dose: Infused Documented by: Insulin Aspart (Insulin Aspart 100 Unit/1 Ml) 0 unit SUBCUT WM&BEDTIME [facility]; Protocol Last Admin: 06/06/20 08:02 Dose: Not Given Documented by: Levothyroxine Sodium (Levothyroxine 100 Mcg Tablet) 100 mcg PO QAM [facility] Last Admin: 06/06/20 05:19 Dose: 100 mcg Documented by: Losartan Potassium (Losartan 50 Mg Tablet) 50 mg PO QAM [facility] Last Admin: 06/06/20 05:19 Dose: 50 mg Documented by: Ondansetron HCl (Ondansetron 2 Mg/Ml Sdv 2 Ml) 4 mg IVP Q2M PRN PRN Reason: NAUSEA Oxycodone/Acetaminophen (Oxycodone-Apap 5-325 Mg Tablet) 1 tab PO BID PRN PRN Reason: pain Last Admin: 06/03/20 22:20 Dose: 1 tab Documented by: Pantoprazole Sodium (Pantoprazole Dr 40 Mg Tablet) 40 mg PO DAILY [facility] Last Admin: 06/05/20 09:26 Dose: 40 mg Documented by: Potassium Chloride (Potassium Chloride Er 20 Meq Tablet) 20 meq PO Q6H [facility] Last Admin: 06/06/20 05:17 Dose: 20 meq Documented by: Spironolactone (Spironolactone 25 Mg Tablet) 25 mg PO DAILY [facility] Last Admin: 06/05/20 09:26 Dose: 25 mg Documented by: Vitals/I&O/Wt Last Vital Signs Temp 97.9 F 06/12/20 12:00 Pulse 50 L 06/12/20 14:00 Resp 18 06/12/20 12:00 BP 127/67 06/12/20 12:00 Pulse Ox 95 06/12/20 12:00 06/12/20 06/12/20 06/12/20 06:59 14:59 22:59 Intake Total 1000 / 3250 240 / 240 Output Total 500 / 1300 720 / 720 Balance 500 / 1950 -480 / -480 Weight last 48 hrs Weight 121.648 kg Weight 120.344 kg Physical Exam Const: COMMON NORMALS: patient oriented x3 HENMT: COMMON NORMALS: normocephalic and atraumatic HEAD & SCALP: normocephalic and atraumatic Resp: COMMON NORMALS: clear to auscultation bilaterally EFFORT & INSPECTION: Yes symmetric chest movement AUSCULTATION: clear to auscultation bilaterally Cardio: COMMON NORMALS: regular rate, regular rhythm, S1 normal heart sound present, S2 normal heart sound present, No gallops present (Cardio), No murmurs present (Cardio), No rub (Cardio) and Peripheral pulses 2+ throughout RATE: regular rate RHYTHM: regular rhythm HEART SOUNDS: S1 normal heart sound present and S2 normal heart sound present PERIPHERAL PULSES: Peripheral pulses 2+ throughout GI: COMMON NORMALS: Normal to inspection, nondistended, normoactive bowel sounds present, Soft to palpation, non-tender, No hepatosplenomegaly present and no masses AUSCULTATION: Yes normoactive bowel sounds PALPATION: Yes Soft to palpation and Yes No hepatosplenomegaly present RECTAL EXAM: Yes deferred Extremity: OTHER: Chronic venous stasis in lower extremities. Peripheral pulses are palpable but weak bilaterally. 1-2+ edema Neuro: COMMON NORMALS: patient oriented x3 Data : 06/12/20 05:20 06/12/20 05:20 A&P Assessment and plan (1) Left upper quadrant pain: Status: Acute (2) Cirrhosis: Status: Acute (3) BRAIN (acute kidney injury): Status: Acute (4) Anasarca: Status: Acute (5) Chronic venous insufficiency: Status: Acute (6) Bradycardia: Status: Acute (7) Abnormal nuclear stress test: Status: Acute (8) Acute exacerbation of CHF (congestive heart failure): Status: Acute Additional A&P Information # Acute on chronic combined systolic and diastolic heart failure Appreciate cardiology recommendations Initially on Lasix to 60 mg IV every 8 along with concomitant potassium supplementation.Currently on Additionally was started on Entresto after discontinuing losartan. Currently tolerating, creatinine and lites are stable. I/O Monitoring. Measure daily weights. Generalized anasarca present on admission has improved much with continued diuresis. Patient came in with fairly hepatic and perisplenic ascites which is currently not amenable to paracentesis. #CKD: Baseline SCR :1.1 - 1.4 Will Hold Lasix dose for today Monitor SCR. #Abnormal stress test Appreciate cardiology recommendations Small areas of reversible ischemia Due for cardiac catheterization #Left upper quadrant pain, this is now resolved CT abdomen revealed perisplenic fluid collection with underlying ascites consistent with portal hypertension Overall unclear etiology of left upper quadrant pain, possible that ascites may be contributing here, unable to get paracentesis as not enough fluid to safely drain at this present time. CT of the abdomen without any acute intra-abdominal process Currently tolerating her diet, abdominal pain is improved. suspicion for SBP is low at this time, however since unable to get paracentesis, will treat with empiric 5-day regimen of ceftriaxone, completed today. Discontinued ceftriaxone Cholelithiasis without active signs of cholecystitis #Liver cirrhosis Unclear etiology, however may be related to congestive hepatopathy due to heart failure Hepatitis panel negative No signs of Parkinson's, Asif's disease unlikely No signs of portal vein thrombosis on abdominal ultrasound #A. fib with bradycardia Monitor for now, not symptomatic from the bradycardia. May need a pacemaker down the line Eliquis has been placed on hold, converted to full dose Lovenox instead in anticipation of upcoming procedure # COPD Patient is endorsing using BiPAP at night and 1 to 2 L at home in the morning No acute exacerbation Sodium restricted diet, consistent carb diet prn nebulization Full code DVT prophylaxis: Obi Rodriguez Medical Necessity Statement*: Patient needs to be in hospital for the management of Heart failure,abnormal stress test,currently awaiting CAG. Coding Level of Care Code Acute Carpet Renovator for Chg Fwd Diagnoses Left upper quadrant pain R10.12 Cirrhosis K74.60 BRAIN (acute kidney injury) N17.9 Anasarca R60.1 Chronic venous insufficiency I87.2 Bradycardia R00.1 Abnormal nuclear stress test R94.39 Acute exacerbation of CHF (congestive heart failure) I50.9
--- NOTE | 2020-06-12 18:03 | XACV_ITS ---
Exam Room: [facility] Ht: 183 cm Wt: 120 kg BSA: 2.51 m2 Gender: Male : 1945 Any Known Allergies: Other Exam Priority: Routine Procedure(s): Procedure Description: Diagnostic procedure Procedure Description: Left Heart Catheterization Procedure Description: Coronary Angiography Diagnostic Cath Status: Urgent Diagnostic Findings * The patient's the brachiocephalic trunk appeared to be originating from the left side of the aortic arch. I had to use multiple catheters to engage the left main artery. * T * he left main is a medium to large caliber elongated vessel with a high takeoff and no significant stenotic lesions. * The left anterior descending artery is a medium caliber vessel which tapers off towards the LV apex. It gives off 1 large septal blanket weaver and a small to medium caliber first diagonal artery. Minimal intimal irregularities were noted in these vessels with no significant stenotic lesions.. * The left circumflex artery is a medium caliber vessel which gives off a high obtuse marginal branch with minimal intimal irregularities. The mid circumflex artery was found to have around 50% eccentric narrowing. No other significant stenotic lesions were noted.. * The right coronary artery is a large dominant vessel which has a high and posterior takeoff. The artery was found to have mild diffuse intimal irregularities with no significant stenotic lesions. Conclusions 1. This is a 76-year-old white male with a history of hypertension, dyslipidemia, peripheral artery disease, chronic atrial fibrillation, presented with features of acute on chronic heart failure. He was found to have an LV ejection fraction of 35 to 40% by echocardiogram. He also had clinical features of anasarca. He had a myocardial perfusion imaging revealing multiple areas of fixed defects with small areas of reversible defects. In view of the patient's clinical presentation and the abnormal objective findings, in order to further evaluate his coronary status, a cardiac catheterization was recommended. Patient underwent left heart catheterization with left and right coronary angiogram today. The findings are as follows. 2. 1. Around 50% eccentric lesion in the mid circumflex artery. Mild diffuse disease in the other vessels. 2 large dominant right coronary artery with a high posterior takeoff. 3. LVEDP of 18 mmHg. Recommendations * Continue current medical management and risk factor modification. Diagnostic RX Recommendation: medical therapy and/or counseling LV EDP: 18 mmHg Left Ventriculography Findings: * The ventriculography was not performed because of the recent kidney injury. The LVEDP was 18 mmHg. Pressures Phase:Rest AO : 119 / 57 ( 80 ) @ 12:37:00 PM 117 / 59 ( 81 ) @ 12:37:00 PM 117 / 48 ( 82 ) @ 12:39:00 PM 115 / 60 ( 79 ) @ 12:49:00 PM 116 / 53 ( 83 ) @ 12:49:00 PM 142 / 55 ( 87 ) @ 1:01:00 PM LV : 139 / 0 / @ 12:49:00 PM 142 / -1 / @ 12:49:00 PM Valves Phase:DefaultPhase AV : 22.0 @ 7:13:23 PM AV Mean Gradient: 22.0 @ 7:13:23 PM Clinical Evaluation EBL: 5mL-10mL Procedural Details Procedure Consent Obtained. Pre-Procedure Time Out. Identified patient by full name and date of as verbalized by the patient/guarantor. Does the consent match the physician's order: Yes. Accurate & Complete Informed Consent: Yes. Inpatient/Outpatient History & Physical on Chart: Yes. If H&P is completed, is and addenduem needed: No; If yes, is the addendum complete: N/A. Visualize and Verify Site with Patient/Guarantor: N/A. Relevant Radiology Images available: N/A. Pre-op teaching completed and patient verbalized understanding. The risks, benefits, and alternatives of sedation and/or procedure were discussed by physician. The patient agrees to continue. Procedure started. [facility] Clinical Fraility Score: 4: Vulnerable. Thickener Operator Indications: Cardiomyopathy. Chest Pain Symptom Assessment: Atypical Angina. Cardiovascular Instability: No. Correct patient, site and procedure confirmed by cath team. PERRLA. Strong, equal hand tearoom hostess bilaterally. Lungs clear x 5 lobes. IV Site on Arrival: 20 gauge in the left wrist. IV Fluids: 0.9% NaCl at KVO. 0. mL infused prior to cardiac cath lab radiology technologist. Physician arrived. Pre Procedural Pulses: bilateral radial was 2+. Oxygen started at 2liters/min via nasal canula. bilateral groins was prepped with chloroprep then draped in the usual sterile fashion. right radial was prepped with chloroprep then draped in the usual sterile fashion. Baseline sample Acquired. HR: 62 BPM. Equipment: 6F - Radial. Cardiac Cath Pack. ACIST Manifold Kit Model BT 2000. Heparinized Saline (2 units/mL), 1000 mL bag. Physician scrubbed in. Immediate Pre-Procedure Time Out. Correct Patient: Yes; Correct Procedure: Yes; Correct Site: Yes; Correct Patient Position: Yes; Correct Supplies: Yes; Dried Flammable Prep: Yes; Blood Products Available: N/A;. Lidocaine 1% infiltrated to the right radial. Arterial access obtained. A 5 slovak Rico catheter in over wire. Multiple views taken of right coronary artery. Catheter redirected to the LCA. Catheter removed over the exchange wire. A 5 slovak AL2 catheter in over wire. Catheter removed over the exchange wire. A 5 slovak AL1 catheter in over wire. EDP Sample taken: LV 139/-1,18; HR: 53 BPM; SpO2: 97%. Pullback taken: LV 142/-2,19; AO 115/60(79); Mean: 22mmHg, Peak to Peak: 22mmHg, SEP: 15sec/min; HR: 50 BPM; SpO2: 97%. Catheter removed over the exchange wire. A 5 slovak TIG catheter in over wire. Catheter removed over the exchange wire. A 5 slovak JL5 catheter in over wire. Catheter removed over the exchange wire. 6 slovak XB 3.5 guide catheter was inserted over the wire. Multiple views taken of left coronary artery. Catheter removed over the exchange wire. Physician scrubbed out. A TR Band was successful obtaining hemostatsis at the Right Radial artery insertion site. TR band placed. Hemostasis obtained. Post Procedure: Pulses reassessed and unchanged. PERRLA. Strong, equal hand tearoom hostess bilaterally. No VTE prophylaxis required. Medication's Wasted: Lidocaine 1% = 18 mL. Medication's Wasted: Heparin = 3000 units. Total IV fluids: 75 mL. Medication's Wasted: Nitro = 49.8 mg. Medication's Wasted: Other = versed 1 mg. Medication's Wasted: Other = fentanyl 50 mcg. Contrast type used: Omnipaque 300 mgI/mL, 500 mL bottle. Post-op diagnosis: cardiomyopathy. Complications: none. Estimated blood loss: 5mL-10mL. Procedure completed. Patient transferred by wheelchair to 1st floor. Vital chart was stopped. Access Site Site: Right Radial artery Sheath Size: 6 Fr Hemostasis Method: TR Band Hemostasis Success: Successful Procedure Medications Start: 6:27 PM Stop: 6:27 PM Medication: Benadryl Amount: 50 mg Route: I.V. Start: 6:27 PM Stop: 6:27 PM Medication: Versed Amount: 1 mg Route: I.V. Start: 6:27 PM Stop: 6:27 PM Medication: Fentanyl Amount: 50 mcg Route: I.V. Start: 6:34 PM Stop: 6:34 PM Medication: Verapamil Amount: 5 mg Route: I.A. Start: 6:35 PM Stop: 6:35 PM Medication: Nitrogylcerin Amount: 200 mcg Route: I.A. Start: 6:38 PM Stop: 6:38 PM Medication: Heparin Amount: 3000 units Route: I.V. I, the attending physician, have reviewed and verified all procedure medications. Yes, all medications given per verbal order History/Risk Factors Hypertension: Yes Dyslipidemia: Yes Peripheral Arterial Disease (PAD): Yes Myocardial Infarction (ID): No Obesity: Yes Renal Disease: No Tobacco Use: Never Prior Interventions PCI: No CABG: No Valve Surgery: No Report Signatures Finalized by Dr Luc Roque MD [facility] on 06/12/2020 08:07 PM
--- NOTE | 2020-06-12 18:17 | W.PM.OPSUD ---
Surgery/Procedure H&P Update DATE OF PROCEDURE: June 12, 2020 DATE H&P PERFORMED: 06/05/20 H&P UPDATE INFORMATION: I have reviewed H&P completed within last 30 days, I have examined patient prior to procedure and Changes to prior documentation as noted here (Please note the physical examination findings in my progress note) PREOP DIAGNOSIS: Chronic venous ulcer left lower extremity with documented severe reflux of the left greater saphenous vein PRIMARY INDICATION FOR PROCEDURE: Congestive heart failure with LV systolic dysfunction, worsening ejection fraction PLANNED PROCEDURE: Operation Date: 06/12/20 18:40 Proposed Procedures p left Cardiac Catheterization 49537 I50.33(Left) - Luc Roque MD PATIENT REASSESSED PRIOR TO SEDATION, WITH NO CHANGE NOTED: Yes PHYSICAL EXAM: alert, oriented x 3, clear to auscultation bilaterally and regular rate & rhythm (Irregularly irregular heartbeat) AIRWAY EVAL/ANESTHESIA PLAN: normal airway, see other exam findings, ASA III, Monitored Anesthesia, Local Anesthesia, Risks, benefits & alternatives of sedation and/or procedure discussed and Patient agrees to continue as planned
[2020-06-12 18:23] LABS: Glucose Point of Care 164 mg/dL (70-110)
--- NOTE | 2020-06-12 18:43 | PC.NURSE ---
called report to [facility]
[2020-06-12 20:28] LABS: Glucose Point of Care 159 mg/dL (70-110)
[2020-06-12] MEDS: ipratropium-albuterol 3 mL Neb INHALATION (21:29)
[2020-06-13] VITALS (11 sets, daily range): BP systolic 102–157; BP diastolic 56–83; PULSE 42–54; RESP 10–24; TEMP 36.6–37.4; O2SAT 94–100
--- NOTE | 2020-06-13 02:29 | PC.NURSE ---
NURSE NOTE: ADMISSION: PT ARRIVED TO UNIT AT APPROXIMATELY 1930 THIS SHIFT. HEART RATE UPON ARRIVAL = [address] LOPEZ NOTIFIED OF LOW HEART RATE; CAME AND SAW PT AND SAID TO HAVE PACER PATCHES AT BEDSIDE. PATCHES PLACED AT BEDSIDE PER ORDERS. HEART RATE CURRENTLY RUNNING IN MID 50'S. PT DENIES CHEST PAIN. 02 ON @ 4L PER NC UPON ARRIVAL. BIPAP INITIATED PER RT AT APPROXIMATELY 2200. CURRENTLY RESTING WITH EYES CLOSED, RESP EVEN AND NON LABORED. ALL VS AND ASSESSMENTS CHARTED-R TR BAND REMOVED PER PROTOCOL AT 2029. RIGHT RADIAL CATH SITE DRESSING CLEAN DRY AND INTACT. NO DRAINAGE NOTED. RADIAL PULSES 3+ BILATERALLY. NO DISTRESS NOTED AT THIS TIME. WILL CONTINUE TO MONITOR.
[2020-06-13 04:57] LABS: Basophils % 0.7 %; Eosinophils # 0.1 10^3/uL (0.0-0.8); Eosinophils % 2.4 %; Hematocrit 37.1 % (42.0-52.0); Hemoglobin 11.4 g/dL (11.7-16.6); Lymphocytes # 1.1 10^3/uL (0.8-4.8); Lymphocytes % 27.4 %; Mean Corpuscular HGB Conc 30.7 g/dL (30.0-36.0); Mean Corpuscular Hemoglobin 26.3 pg (28.0-34.0); Mean Corpuscular Volume 85.5 fL (80-94); Mean Platelet Volume 10.6 fL (7.4-10.4); Monocytes # 0.6 10^3/uL (0.2-0.9); Neutrophils # 2.23 10^3/uL (1.8-7.7); Neutrophils % 54.3 %; Nucleated Red Blood Cells % 0 %; Platelet Count 208 10^3/cmm (130-400); Red Blood Count 4.34 10^6/uL (4.1-5.3); Red Cell Distribution Width 15.6 % (12.1-15.1); White Blood Count 4.1 10^3/uL (4.0-10.0)
[2020-06-13 05:23] LABS: Anion Gap 13.5 (5-19); Blood Urea Nitrogen 19 mg/dL (8-23); Calcium 8.9 mg/dL (8.5-10.5); Carbon Dioxide 26 mmol/L (22-29); Chloride 100 mmol/L (98-107); Glucose 161 mg/dL (65-115); Osmolality Calculated 286 mOsm/kg (285-295); Potassium 4.5 mmol/L (3.5-5.1); Sodium 135 mmol/L (136-145)
[2020-06-13 06:49] LABS: Glucose Point of Care 147 mg/dL (70-110)
--- NOTE | 2020-06-13 08:30 | PC.NURSE ---
Notified Doctor Called Dr. Roque to unhold the active medications that were put on hold.
[2020-06-13] MEDS: FUROsemide 10 mg/mL SDV 10mL 60 MG IVP (08:59)
[2020-06-13] MEDS: sacubitril/valsartan 24-26 mg Tablet 1 EACH PO (09:29)
[2020-06-13] MEDS: omega-3 fatty acids 1,000 mg Capsule 1000 MG PO (09:30)
[2020-06-13] MEDS: oxyCODONE-APAP 5-325 mg Tablet 1 TAB PO (09:30)
[2020-06-13] MEDS: levothyroxine 100 mcg Tablet PO (09:38)
[2020-06-13] MEDS: potassium chloride ER 20 mEq Tablet PO (09:38)
[2020-06-13] MEDS: pantoprazole DR 40 mg Tablet PO (09:38)
[2020-06-13] MEDS: spironolactone 25 mg Tablet PO (09:38)
--- NOTE | 2020-06-13 09:52 | P.PN_ITS ---
Subjective Subjective: Interval history: Patient is feeling better in terms of his shortness of breath. He has significant pain in the right hip. He also has a generalized tiredness/weakness. Heart rate is in the 40s most of the times. Is somewhat chronic with some worsening recently. Denies any fever or chills. Medications: Reviewed: Yes Medication Review Details: Current Medications Acetaminophen (Acetaminophen 325 Mg Tablet) 650 mg PO Q6H PRN PRN Reason: MILD PAIN Al Hydrox/Mg Hydrox/Simethicone (Sopj-Bce-Kxjgzrubx-Devora 30 Ml Udc) 30 ml PO Q15M PRN PRN Reason: INDIGESTION Albuterol/Ipratropium (Ipratropium-Albuterol 3 Ml Neb) 3 ml INHALATION Q4H PRN PRN Reason: SHORTNESS OF BREATH Last Admin: 06/12/20 21:29 Dose: 3 ml Documented by: Alprazolam (Alprazolam 0.25 Mg Tablet) 0.25 mg PO TID PRN PRN Reason: ANXIETY Dextrose (Dextrose 50% Syringe 50 Ml) 25 ml IVP ONCE PRN; Protocol PRN Reason: hypoglycemia protocol Dextrose (Dextrose 50% Syringe 50 Ml) 50 ml IVP PRN PRN; Protocol PRN Reason: hypoglycemia protocol Fentanyl (Fentanyl 50 Mcg/Ml Inj 2ml) 50 mcg IVP PRN PRN PRN Reason: Prior to sheath removal Furosemide (Furosemide 40 Mg Tablet) 60 mg PO DAILY@0800 JAIR Glucagon (Glucagon 1 Mg/Ml Inj 1 Ml) 1 mg IM ONCE PRN; Protocol PRN Reason: Adult Acute Hypoglycemia Prot. Dextrose (D5w) 500 mls @ 100 mls/hr IV ONCE PRN; Protocol PRN Reason: Adult Acute Hypoglycemia Prot Insulin Aspart (Insulin Aspart 100 Unit/1 Ml) 0 unit SUBCUT WM&BEDTIME [facility]; Protocol Last Admin: 06/12/20 12:08 Dose: 4 unit Documented by: Levothyroxine Sodium (Levothyroxine 100 Mcg Tablet) 100 mcg PO QAM [facility] Last Admin: 06/12/20 06:17 Dose: 100 mcg Documented by: Lidocaine (Lidocaine 5% Patch) 1 patch TOPICAL [id number] [facility] Last Admin: 06/12/20 09:17 Dose: 1 patch Documented by: Magnesium Hydroxide (Magnesium Hydroxide 30 Ml Udc) 30 ml PO DAILY PRN PRN Reason: CONSTIPATION Naloxone HCl (Naloxone 0.4 Mg/Ml Sdv) 0.1 mg IVP Q2M PRN PRN Reason: RESPIRATORY RATE < 8/MIN Nitroglycerin (Nitroglycerin 0.4 Mg Sublingual Tablet) 0.4 mg SUBLINGUAL Q5M PRN PRN Reason: CHEST PAIN Non-Formulary Medication (Alogliptin) 25 mg PO QAM [facility] Non-Formulary Medication (Cinnamon Bark [Cinnamon]) 500 mg PO BID [facility] Non-Formulary Medication (Glipizide) 20 mg PO BID [facility] Non-Formulary Medication (Pentoxifylline) 400 mg PO TID [facility] Non-Formulary Medication (Vitamin B Complex) 1 cap PO PRN [facility] Non-Formulary Medication (Vitamin E (Dl, Acetate)) 1,000 unit PO PRN [facility] Rdjhq-1-Arpj Ethyl Esters ([place]-3 Fatty Acids 1,000 Mg Capsule) 1,000 mg PO BID [facility] Last Admin: 06/13/20 09:30 Dose: 1,000 mg Documented by: Ondansetron HCl (Ondansetron 2 Mg/Ml Sdv 2 Ml) 4 mg IVP Q2M PRN PRN Reason: NAUSEA Oxycodone/Acetaminophen (Oxycodone-Apap 5-325 Mg Tablet) 1 tab PO Q4H PRN PRN Reason: MODERATE PAIN Last Admin: 06/13/20 09:30 Dose: 1 tab Documented by: Pantoprazole Sodium (Pantoprazole Dr 40 Mg Tablet) 40 mg PO DAILY [facility] Last Admin: 06/12/20 09:17 Dose: 40 mg Documented by: Potassium Chloride (Potassium Chloride Er 20 Meq Tablet) 20 meq PO Q6H [facility] Last Admin: 06/12/20 17:11 Dose: Not Given Documented by: Sacubitril/Valsartan (Sacubitril/Valsartan 24-26 Mg Tablet) 1 each PO BID [facility] Last Admin: 06/12/20 12:09 Dose: 1 each Documented by: Spironolactone (Spironolactone 25 Mg Tablet) 25 mg PO DAILY [facility] Last Admin: 06/12/20 09:17 Dose: 25 mg Documented by: Temazepam (Temazepam 15 Mg Capsule) 15 mg PO BEDTIME PRN PRN Reason: INSOMNIA Vitals/I&O/Wt Last Vital Signs Temp 99.3 F 06/13/20 07:32 Pulse 44 L 06/13/20 07:32 Resp 18 06/13/20 09:30 BP 157/83 06/13/20 07:32 Pulse Ox 100 06/13/20 09:30 06/12/20 06/13/20 06/13/20 22:59 06:59 14:59 Intake Total 300 / 540 120 / 120 Output Total 300 / 1020 350 / 1370 400 / 400 Balance 0 / -480 -350 / -830 -280 / -280 Weight last 48 hrs Weight 268 lb 3 oz Weight 265 lb 5 oz Physical Exam Narrative: EXAM NARRATIVE: GENERAL: The patient is alert and oriented times three. Not in any acute distress. Obese. HEENT: Minimal pallor, no icterus or lymphadenopathy. The pupils are reactant to light. Oral cavity: There are no mucous membrane lesions. NECK: Trachea appears to be central. No masses noted. No JVD or thyromegaly appreciated. No carotid bruit. RESPIRATORY: Chest is symmetrical. No intercostals muscle retraction or any accessory muscle activation. There is no chest wall tenderness. Breath sounds are heard bilaterally. No rales or rhonchi heard. No evidence of any consolidation. BREASTS: Deferred. HEART: The heart sounds are normal no S3 or S4. Short systolic murmur in the lower sternal border. No diastolic murmurs. ABDOMEN: Abdomen is slightly distended. Obese. Minimal tenderness in the left upper quadrant area. Bowel sounds are normally heard. : Deferred. RECTAL: Deferred. LYMPHATIC: No lymphadenopathy noted in the neck or groin. EXTREMITIES: Features of chronic venous stasis in the lower extremities. Peripheral pulses are palpable but weak bilaterally. Trace edema MUSCULOSKELETAL: No acute joint deformities or swelling. SKIN: There are no significant rashes or ecchymosis. NEUROPSYCHIATRIC: The patient is alert and oriented x3. Appears to be in a good mood. The higher functions are grossly within normal limits. No tremors or rigidity noted. Data : 06/13/20 04:15 06/13/20 04:15 Other Labs: Laboratory Last Values WBC 4.1 10^3/uL (4.0-10.0) 06/13/20 04:15 RBC 4.34 10^6/uL (4.1-5.3) 06/13/20 04:15 Hgb 11.4 g/dL (11.7-16.6) L 06/13/20 04:15 Hct 37.1 % (42.0-52.0) L 06/13/20 04:15 MCV 85.5 fL (80-94) 06/13/20 04:15 MCH 26.3 pg (28.0-34.0) L 06/13/20 04:15 MCHC 30.7 g/dL (30.0-36.0) 06/13/20 04:15 RDW 15.6 % (12.1-15.1) H 06/13/20 04:15 Plt Count 208 10^3/cmm (130-400) 06/13/20 04:15 MPV 10.6 fL (7.4-10.4) H 06/13/20 04:15 Neut % (Auto) 54.3 % 06/13/20 04:15 Lymph % (Auto) 27.4 % 06/13/20 04:15 [place] % (Auto) 15.0 % 06/13/20 04:15 Eos % (Auto) 2.4 % 06/13/20 04:15 Baso % (Auto) 0.7 % 06/13/20 04:15 Neut # (Auto) 2.23 10^3/uL (1.8-7.7) 06/13/20 04:15 Lymph # (Auto) 1.1 10^3/uL (0.8-4.8) 06/13/20 04:15 [place] # (Auto) 0.6 10^3/uL (0.2-0.9) 06/13/20 04:15 Eos # (Auto) 0.1 10^3/uL (0.0-0.8) 06/13/20 04:15 Baso # (Auto) 0.0 10^3/uL (0.0-0.1) 06/13/20 04:15 Nucleated RBC % (auto) 0 % 06/13/20 04:15 Nucleated RBCs # 0.0 /100WBC 06/13/20 04:15 PT 19.50 SECONDS (12.1-14.9) H 06/03/20 21:35 INR 1.59 (0.8-1.2) H 06/03/20 21:35 APTT 43.0 SECONDS (23.9-36.7) H 06/03/20 21:35 Fibrinogen 560 mg/dL (174-498) H 06/03/20 21:35 D-Dimer 4.15 ug/mIFEU (0-0.59) H 06/03/20 13:25 Sodium 135 mmol/L (136-145) L 06/13/20 04:15 Potassium 4.5 mmol/L (3.5-5.1) 06/13/20 04:15 Chloride 100 mmol/L (98-107) 06/13/20 04:15 Carbon Dioxide 26 mmol/L (22-29) 06/13/20 04:15 Anion Gap 13.5 (5-19) 06/13/20 04:15 BUN 19 mg/dL (8-23) 06/13/20 04:15 Creatinine 1.0 mg/dL (0.7-1.2) 06/13/20 04:15 GFR Calculation Not Reportable 06/13/20 04:15 Glucose 161 mg/dL (65-115) H 06/13/20 04:15 POC Glucose 147 mg/dL (70-110) H 06/13/20 06:40 Calculated Osmolality 286 mOsm/kg (285-295) 06/13/20 04:15 Lactate 1.9 mmol/L (0.5-2.2) 06/03/20 13:25 Calcium 8.9 mg/dL (8.5-10.5) 06/13/20 04:15 Magnesium 2.3 mg/dL (1.7-2.3) 06/11/20 05:20 Total Bilirubin 1.0 mg/dL (0.15-1.2) 06/10/20 09:18 AST 40 U/L (0-40) 06/10/20 09:18 ALT 17 U/L (0-41) 06/10/20 09:18 Alkaline Phosphatase 128 IU/L (40-130) 06/10/20 09:18 Troponin T Baseline 51 ng/L (0-15) H 06/03/20 13:25 Troponin T 120 Minute 48.98 ng/L (0-15) H 06/03/20 15:27 Delta Troponin T -2.02 ABS# (0-10) L 06/03/20 15:27 Troponin T Hi Sens 6Hr 50.30 ng/L (0-15) H 06/03/20 19:33 Troponin T Hi Sens 6Hr Delta -0.70 ng/L (0-12) L 06/03/20 19:33 NT-Pro-B Natriuret Pep 1472 pg/mL (0-450) H 06/03/20 13:25 Total Protein 8.0 g/dL (6.6-8.7) 06/10/20 09:18 Albumin 4.1 g/dL (3.5-5.2) 06/10/20 09:18 Globulin 3.9 g/dL (1.3-4.6) 06/10/20 09:18 Qlutd-9-Pzcaxvbicot 231 mg/dL (83-199) H 06/03/20 21:35 Lipase 33 U/L (13-60) 06/03/20 13:25 Urine Color Yellow (Yellow) 06/03/20 14:22 Urine Appearance Clear (CLEAR) 06/03/20 14:22 Urine pH 6.5 (5-7) 06/03/20 14:22 Ur Specific [place] 1.015 (1.005-1.030) 06/03/20 14:22 Urine Protein Trace (Negative) 06/03/20 14:22 Urine Glucose (UA) Norm (Normal) 06/03/20 14:22 Urine Ketones Negative (Negative) 06/03/20 14:22 Urine Blood 3+ (Negative) H 06/03/20 14:22 Urine Nitrate Negative (Negative) 06/03/20 14:22 Urine Bilirubin 1+ (Negative) H 06/03/20 14:22 Urine Urobilinogen 1 mg/dL (Negative) H 06/03/20 14:22 Ur Leukocyte Esterase Negative (Negative) 06/03/20 14:22 Urine RBC 25-40 /hpf (0-2) H 06/03/20 14:22 Urine WBC 0-4 /hpf (0-5) H 06/03/20 14:22 Ur Squamous Epith Cells 0-4 /hpf (0-5) H 06/03/20 14:22 Amorphous Sediment Not Reportable 06/03/20 14:22 Urine Bacteria 2+ /hpf (NONE) H 06/03/20 14:22 Hepatitis A IgM Ab Non-reactive (Nonreactive) 06/03/20 15:27 Hep Bs Antigen Non-reactive (Nonreactive) 06/03/20 15:27 Hep B Core IgM Ab Non-reactive (Nonreactive) 06/03/20 15:27 Hepatitis C Antibody Non-reactive (Nonreactive) 06/03/20 15:27 SARS-CoV-2 Ag (Rapid) Negative (Negative) 06/03/20 17:48 A&P Assessment and plan (1) Chronic atrial fibrillation: Patient is with a controlled ventricular response rate. He has been having episodes of bradycardia with a heart rate in the 30s and low 40s. Patient may benefit from a permanent pacer implantation. Patient is wanting to go home at this time. We may bring him back sometime next week to have the permanent pacemaker done as an outpatient. Patient may be restarted on the Eliquis tonight. (2) Bradycardia: As mentioned above. (3) Anasarca: Patient has significant improvement of the edema. (4) Hyperlipidemia: May Continue on the current medications Qualifiers: Hyperlipidemia type: mixed hyperlipidemia Qualified Code(s): E78.2 - Mixed hyperlipidemia (5) Hypertension: The blood pressure is getting under control. May continue on the current medications. Qualifiers: Hypertension type: essential hypertension Qualified Code(s): I10 - Essential (primary) hypertension (6) Acute on chronic systolic heart failure: Patient is on Entresto. This may be continued. Also continue the spironolactone and the potassium. (7) Atherosclerotic heart disease: Patient was found to have mild to moderate coronary disease. Additional A&P Information If the patient continues remain stable, may be discharged home from a cardiac standpoint. Management of the right hip pain as per Dr. Cross. Eliquis may be restarted tonight. Need to be seen in the office in a week by the nurse practitioner. I may see him in the office in 3 weeks Attestations Medical Necessity Statement*: Disposition as per the primary Coding Level of Care Code Acute Lighting Adviser for Myles Fwd History Detailed Exam Detailed Medical Decision Making Moderate Complexity Diagnoses Chronic atrial fibrillation I48.20 Bradycardia R00.1 Anasarca R60.1 Hyperlipidemia E78.2 Hyperlipidemia type: mixed hyperlipidemia Hypertension I10 Hypertension type: essential hypertension Acute on chronic systolic heart failure I50.23 Atherosclerotic heart disease I25.10
--- NOTE | 2020-06-13 10:13 | XR_ITS ---
WS: [id number] Right hip, AP view, 06/13/2020 Clinical Data: pain Comparison: None. Findings: No fractures or dislocations are seen. The hip joint is intact. The soft tissues are not remarkable. The adjacent pelvis is normal. XR/XR hip RT 1V wo/w pel [id number] Impression: Negative right hip.
[2020-06-13 11:30] LABS: Glucose Point of Care 135 mg/dL (70-110)
--- NOTE | 2020-06-13 13:13 | PM.DCS ---
Discharge Providers Date of Admission: 06/03/20 21:00 Date of Discharge: June 13, 2020 Attending Provider at Admission: Shani Galloway MD Attending Provider at Discharge: Steven Cross MD Primary Care Provider: Mary Lou Anaya MD Diagnoses at Discharge Discharge Diagnosis (1) Cardiomyopathy: Status: Acute Permanent problem details: Non ischemic Cradiomyopathy. (2) Chronic atrial fibrillation: Status: Chronic Permanent problem details: Patient is on long-term oral anticoagulation. Eliquis held for possible LHC in 1-2 days. (3) Bradycardia: Status: Acute Permanent problem details: Patient has a longstanding history of atrial fibrillation and bradycardia. (4) Anasarca: Status: Acute (5) Hyperlipidemia: Status: Acute Qualifiers: Hyperlipidemia type: mixed hyperlipidemia Qualified Code(s): E78.2 - Mixed hyperlipidemia (6) Hypertension: Status: Acute Qualifiers: Hypertension type: essential hypertension Qualified Code(s): I10 - Essential (primary) hypertension (7) Acute on chronic systolic heart failure: Status: Acute (8) Atherosclerotic heart disease: Status: Acute Reason for Visit Reason for Visit: sent from heart care/CHEST PAIN Hospital Course Hospital Course 74 year old male who presented today with chief complaint of left upper quadrant pain. Patient is stating that he has never been diagnosed with liver cirrhosis or failure in the past he has multiple comorbid conditions including A. fib, bradycardia, chronic anticoagulation, COPD, uses BiPAP at night, has never smoked in his life. On admission Mr. Amanda was stating that he was in his usual state of health until about 2 to 3 weeks ago when he started feeling more bloated and his breathing was getting more labored he did not experience any fever, nausea, vomiting, diarrhea or chest pain. He has experienced orthopnea and PND uses BiPAP at night. He has started using Lasix 20 mg twice a day along with spironolactone but it does not seem to improve his abdominal bloating.He was admitted for the management of above mentioined complain.During the hospital stay he was managed for # Acute on chronic combined systolic and diastolic heart failure Initially on Lasix to 60 mg IV every 8 along with concomitant potassium supplementation. Additionally was started on Entresto after discontinuing losartan and waiting 36 hrs washout period.He responded well to the I.V Diuresis and was discharged on 60 mg po lasix daily.He also had abnormal stress test;For which patient underwent cardiac cath: Cardiac cath failed to show any marked stenosis, it was more in line with nonocclusive coronary artery disease. Patient will continue to follow cardiology as an outpatient further management of nonischemic cardiomyopathy. Patient will also follow cardiology as an outpatient for possible pacemaker placement, given the fact that the patient has sick sinus syndrome, He has underlying chronic bradycardia with A. fib. Heart rate had lowest dropped to high 30s. For his left upper quadrant pain,: Likely secondary to congestive hepatopathy 2/[address] abdomen revealed perisplenic fluid collection with underlying ascites consistent with portal hypertension ascites may be contributing here, unable to get paracentesis as not enough fluid to safely drain at this present time. CT of the abdomen without any acute intra-abdominal process.patient was tolerating diet, abdominal pain was resolved at the time of discharge. suspicion for SBP was low at this time, however since unable to get paracentesis, he was on empiric 5-day regimen of ceftriaxone. For his COPD Patient was continued on BiPAP at night and 1 to 2 L at home oxygen in the morning. Patient responded well to the above medical management and was being discharged in stable condition.He will continue to follow his interior design consultant as well as primary care as an outpatient. Physical Exam Const: COMMON NORMALS: patient oriented x3 HENMT: COMMON NORMALS: normocephalic and atraumatic HEAD & SCALP: normocephalic and atraumatic Resp: COMMON NORMALS: clear to auscultation bilaterally EFFORT & INSPECTION: Yes symmetric chest movement AUSCULTATION: clear to auscultation bilaterally Cardio: COMMON NORMALS: regular rate, regular rhythm, S1 normal heart sound present, S2 normal heart sound present, No gallops present (Cardio), No murmurs present (Cardio), No rub (Cardio) and Peripheral pulses 2+ throughout RATE: regular rate RHYTHM: regular rhythm HEART SOUNDS: S1 normal heart sound present and S2 normal heart sound present PERIPHERAL PULSES: Peripheral pulses 2+ throughout GI: COMMON NORMALS: Normal to inspection, nondistended, normoactive bowel sounds present, Soft to palpation, non-tender, No hepatosplenomegaly present and no masses AUSCULTATION: Yes normoactive bowel sounds PALPATION: Yes Soft to palpation and Yes No hepatosplenomegaly present RECTAL EXAM: Yes deferred Extremity: OTHER: Chronic venous stasis in lower extremities. Peripheral pulses are palpable but weak bilaterally. 1-2+ edema Neuro: COMMON NORMALS: patient oriented x3 Discharge Data Data Completed and Pending: Completed Studies During Hospitalization Category Date Time Status CT abdomen pelvis w con* [id number] Urge nt Cat Scan 06/03/20 13:31 Completed HARDNESS INSPECTOR request for service Routin e Exams 06/12/20 18:03 Completed Sestamibi Stress Test Request Routi ne Exams 06/04/20 18:08 Completed XR chest 1V lety ble [id number] Urgent Exams 06/03/20 12:54 Completed XR hip RT 1V wo/w pel [id number] Routine Exams 06/13/20 10:13 Completed NM maury perf SPECT r/s* [id number] Routin e Nuc Med 06/05/20 18:08 Completed CV echo complete* [id number] Routine Ultrasound 06/04/20 20:51 [place] [id number] Routine Ultrasound 06/04/20 21:23 Completed Pending at discharge Category Date Time Status Albumin Peritonea l Fluid Routine Lab 06/03/20 21:23 Uncollected Glucose Peritonea l Fluid Routine Lab 06/03/20 21:23 Uncollected Peritoneal Fluid Analysis Routine Lab 06/03/20 21:23 Uncollected Total Protein Per itoneal Fluid Rout ine Lab 06/03/20 21:23 Uncollected Labs from last 24 hours 06/13/20 06/13/20 06/13/20 11:28 06:40 04:15 WBC RBC Hgb Hct MCV MCH MCHC RDW Plt Count MPV Neut % (Auto) Lymph % (Auto) [place] % (Auto) Eos % (Auto) Baso % (Auto) Neut # (Auto) Lymph # (Auto) [place] # (Auto) Eos # (Auto) Baso # (Auto) Nucleated RBC % (a uto) Nucleated RBCs # Sodium 135 L Potassium 4.5 Chloride 100 Carbon Dioxide 26 Anion Gap 13.5 BUN 19 Creatinine 1.0 GFR Calculation Not Reportable Glucose 161 H POC Glucose 135 H 147 H Calculated Osmolal ity 286 Calcium 8.9 06/13/20 06/12/20 06/12/20 04:15 20:23 18:05 WBC 4.1 RBC 4.34 Hgb 11.4 L Hct 37.1 L MCV 85.5 MCH 26.3 L MCHC 30.7 RDW 15.6 H Plt Count 208 MPV 10.6 H Neut % (Auto) 54.3 Lymph % (Auto) 27.4 [place] % (Auto) 15.0 Eos % (Auto) 2.4 Baso % (Auto) 0.7 Neut # (Auto) 2.23 Lymph # (Auto) 1.1 [place] # (Auto) 0.6 Eos # (Auto) 0.1 Baso # (Auto) 0.0 Nucleated RBC % (a uto) 0 Nucleated RBCs # 0.0 Sodium Potassium Chloride Carbon Dioxide Anion Gap BUN Creatinine GFR Calculation Glucose POC Glucose 159 H 164 H Calculated Osmolal ity Calcium Vitals: Last Vital Signs Temp 98.1 F 06/13/20 12:40 Pulse 46 L 06/13/20 12:40 Resp 12 06/13/20 12:40 BP 102/62 06/13/20 12:40 Pulse Ox 99 06/13/20 12:40 Discharge Plan Discharge Patient Disposition: Home Condition: Stable Prescriptions: New Entresto 24-26 mg tablet 1 tab PO BID Qty: 60 RF: 0 Klor-Con 10 10 mEq tablet extended release 10 meq PO DAILY Qty: 30 RF: 0 Voltaren 1 % gel 2 g topical QID Qty: 100 RF: 0 Continued pentoxifylline 400 mg tablet extended release 400 mg PO TID RF: 0 glipizide 10 mg tablet 20 mg PO BID RF: 0 metformin 850 mg tablet 850 mg PO TID RF: 0 levothyroxine 100 mcg capsule 100 mcg PO QAM RF: 0 spironolactone 25 mg tablet 25 mg PO DAILY RF: 0 omeprazole 20 mg capsule,delayed release(DR/EC) 20 mg PO BID RF: 0 gabapentin 800 mg tablet 800 mg PO TID RF: 0 vitamin E (dl, acetate) 1,000 unit capsule 1,000 unit PO PRN RF: 0 cinnamon bark [Cinnamon] 500 mg capsule 500 mg PO BID RF: 0 vitamin B complex Capsule 1 cap PO PRN RF: 0 Eliquis 5 mg tablet 5 mg PO BID RF: 0 oxycodone-acetaminophen 5-325 mg tablet 1 tab PO BID PRN (Reason: pain) 30 Days Qty: 45 RF: 0 alogliptin 25 mg tablet 25 mg PO QAM RF: 0 Fish Oil 1 cap PO BID RF: 0 Changed furosemide 20 mg tablet 60 mg PO DAILY Qty: 0 RF: 0 Discontinued losartan 100 mg tablet 100 mg PO QAM RF: 0 Discharge Orders: Discharge Order (Routine); Ordered 06/13/20 Ordered By: Steven Cross Referrals: Luc Roque MD [Physician] - 7-10 days ([facility] kristen be calling to schedule a cardiology followup with Dr. Roque to be seen in 7 to 10 days. If you don't hear from them by Tuesday, please give them a call. Thank you) Mary Lou Anaya MD [Primary Care Provider] - 7-10 days ([facility] will be calling yto schedule a hospital followup to be seen in 7 to 10 days. If you don't hear from them by tuesday, please give them a call. Thank you) Discharge Diet: Cardiac and Diabetic Discharge Activity: Increase activity as tolerated Patient Instructions: Diclofenac (By mouth), Potassium Chloride (By mouth), Atrial Fibrillation (DC), Left Heart Catheterization (DC), CHF Stoplight, Post Angiogram Home Care Instructions, Pacemaker Activity Restrictions/Additional Instructions: Hold Eliquis 2 days prior to pacemaker placement. Centralized Scheduling Department will be calling with the information of your pacemaker placement. If you don't hear from them by Tuesday afternoon, please give them a call at [phone] Please Keep a log of your BP twice a day. Monitor your weight early in the morning when you wake up. Monitor for any worsening of swelling, worsening shortness of breath. Discharge Attestations Time Spent in Discharge Care*: greater than 30 min Specific Discharge Activities: educating patient, educating and/or supporting family/caregiver, discussing with pcp/other providers, discussing with clinical case manager/social workers/dc planners, documenting/other paperwork and evaluating patient/reviewing data Status at Discharge: Cognitive status at discharge: cognitively intact, Behavioral status at discharge: cooperative, Functional status at discharge: independent ambulation Overall status at discharge: patient is back to baseline Quality Metrics Clinical Quality Measures During this hospital stay, did patient experience: None Coding Level of Care Code Acute Crop Supervisor for g Fwd Diagnoses Cardiomyopathy I42.9 Chronic atrial fibrillation I48.20 Bradycardia R00.1 Anasarca R60.1 Hyperlipidemia E78.2 Hyperlipidemia type: mixed hyperlipidemia Hypertension I10 Hypertension type: essential hypertension Acute on chronic systolic heart failure I50.23 Atherosclerotic heart disease I25.10
[2020-06-13] MEDS: diclofenac 1% Topical Gel 100 gm 1 APPLIC TOPICAL (14:24)
--- NOTE | 2020-06-13 14:45 | PC.NURSE ---
meds to bed Called [facility]. Pt agreed to call it in here since he goes to [place]. Case mgt Jonathan called [facility] get approval of the Entresto. Per case mgt pt has to get it through the [facility]. Faxed the new meds to [facility]. Pt is informed that we will get him the Entresto with a coupon and his potassium. Pt verbalizes understanding. New prescriptions are printed to pt to bring to [place].
--- NOTE | 2020-06-13 17:00 | PC.NURSE ---
Discharge to home with Instructed pt to follow-up with his pcp and embossing machine operator as well as possible pacemaker implantation next week. Provided pt with contact # of centralized scheduling. Instructed pt per doctor to stopped his Eliquis 2 days before the procedure. Educated pt on his new meds actions, dosing, timing and possible side effects. Care notes provided on these meds, chf stoplight and post angiogram home care instructions. Discharge packet provided to pt. Ushered pt via wheelchair.
== END 2020-06-13 17:20 | disposition home or self-care (01) | DRG 432 ==
LOC: ER 18:30 → MEDSURG 19:00 → CSU 06-12 20:15
PROVIDERS: Internal Medicine; Internal Medicine Cardiovascular Disease; Physician Assistant; Admitting Provider Student in an Organized Health Care Education/Training Program; Emergency Provider Family Medicine; PCP Family Medicine; Visit Provider Internal Medicine
PROC: 4A023N7 Measurement of Cardiac Sampling and Pressure, Left Heart, Percutaneous Approach (ICD-10-PCS; principal; 2020-06-12 18:40)
DX: K74.60 Unspecified cirrhosis of liver (principal); I50.23 Acute on chronic systolic (congestive) heart failure; I48.20 Chronic atrial fibrillation, unspecified; K76.6 Portal hypertension; R18.8 Other ascites; I42.8 Other cardiomyopathies; I11.0 Hypertensive heart disease with heart failure; E78.2 Mixed hyperlipidemia; Z79.01 Long term (current) use of anticoagulants; I25.10 Atherosclerotic heart disease of native coronary artery without angina pectoris; R00.1 Bradycardia, unspecified; J44.9 Chronic obstructive pulmonary disease, unspecified; Z79.84 Long term (current) use of oral hypoglycemic drugs; E11.51 Type 2 diabetes mellitus with diabetic peripheral angiopathy without gangrene; G47.33 Obstructive sleep apnea (adult) (pediatric); I07.1 Rheumatic tricuspid insufficiency
CPT/HCPCS: 36415; 36416; 71045; 73501; 74177; 76705; 78452; 80048; 80053; 80074; 81001; 82103; 82962; 83605; 83690; 83735; 83880; 84484; 85025; 85049; 85378; 85384; 85610; 85730; 87086; 87426; 93005; 93017; 93306; 93452; 94640; 94660; 96372; 96374; 96375; 97161; 99291; A9500; C1769; C1887; C1894; G0378; J0696; J1200; J1644; J1650; J1815; J1940; J2250; J2270; J2785; J3010; J3490; J7030; Q0163; Q9967

== ENCOUNTER → 2020-06-16 13:22 | Outpatient (BNVA) | payer OTHER, SELFPAY | PROVIDERS: PCP Family Medicine; Visit Provider Internal Medicine Cardiovascular Disease | DX: I48.91 Unspecified atrial fibrillation (principal); R00.1 Bradycardia, unspecified; I42.9 Cardiomyopathy, unspecified | CPT/HCPCS: 80048; 85025; 85610; 87635 ==

== ENCOUNTER 2020-06-20 09:54 | Observation (INO) | payer OTHER, MEDICARE, SELFPAY ==
[2020-06-20] VITALS (9 sets, daily range): BP systolic 121–138; BP diastolic 65–77; PULSE 44–77; RESP 15–27; TEMP 36.4–36.6; O2SAT 98–99; BMI 35.3
--- NOTE | 2020-06-20 08:25 | W.PM.OPSUD ---
Surgery/Procedure H&P Update DATE OF PROCEDURE: June 20, 2020 DATE H&P PERFORMED: 06/05/20 H&P UPDATE INFORMATION: I have reviewed H&P completed within last 30 days, I have examined patient prior to procedure and No changes to prior documentation PREOP DIAGNOSIS: Chronic venous ulcer left lower extremity with documented severe reflux of the left greater saphenous vein PLANNED PROCEDURE: Operation Date: 06/20/20 08:30 Proposed Procedures p dual chamber Pacemaker Insertion(Not Applicable) - Luc Roque MD PATIENT REASSESSED PRIOR TO SEDATION, WITH NO CHANGE NOTED: Yes PHYSICAL EXAM: alert, clear to auscultation bilaterally and regular rate & rhythm AIRWAY EVAL/ANESTHESIA PLAN: normal airway, see other exam findings, ASA III, Monitored Anesthesia, Local Anesthesia, Risks, benefits & alternatives of sedation and/or procedure discussed and Patient agrees to continue as planned
[2020-06-20 12:11] LABS: Glucose Point of Care 159 mg/dL (70-110)
--- NOTE | 2020-06-20 12:14 | P.OP_ITS ---
Operative Report Date of procedure: June 20, 2020 Pre-op Diagnosis: Chronic venous ulcer left lower extremity with documented severe reflux of the left greater saphenous vein Procedure: LOCATION: Cardiac catheterization lab PREOPERATIVE DIAGNOSES: Atrial fibrillation with a symptomatic bradycardia. POSTOPERATIVE DIAGNOSES: Same. COMPLICATIONS: None. ESTIMATED BLOOD LOSS: Around 5 milliliters. BRIEF HISTORY: This is a 74-year-old white male with history of chronic atrial fibrillation and bradycardia, presents with increasing fatigue/weakness. His heart rate was found to be in the 40s and at times in the 30s. For further management of his condition, a permanent pacemaker implantation was recommended. A single-chamber permanent pacemaker implantation was recommended for further management of her condition, in view of the chronic atrial fibrillation. The procedure was explained to the patient in detail with the risks and benefits. The risks of bleeding, hematoma, vascular injury, infection, pneumothorax, myocardial perforation and other concomitant complications were explained in detail, which the patient understood well and consented to proceed. PROCEDURE DESCRIPTION: The patient was brought to the Cardiac Catheterization Lab. The left and the right side of the neck and the subclavian area were cleaned and draped in a sterile fashion. 1% Xylocaine was used as the local anesthetic agent. A left subclavian venous access was obtained using a micropuncture needle system,under venographic guidance. The patient was injected with 20 milliliters of Omnipaque through the left antecubital vein, for the venogram. A two-inch long incision was made 2.0 centimeters below the midclavicular region. By sharp and blunt dissection, a pacemaker pocket was made. Over the guidewire, a 7-Brazilian venous sheath with dilator was advanced. The venous dilator and the guidewire were taken out. A screw-in ventricular lead was advanced through the venous sheath and was positioned towards the right ventricle. Under fluoroscopy guidance, the ventricular lead was positioned toward the right ventricular apex. Good pacing and sensing thresholds were obtained. The lead was secured to the endocardium by advancing the helix. The stability of the lead was tested by gentle twisting movements and also by asking the patient to take some deep breaths and cough. The venous sheath was peeled off, at this time. The lead was secured to the pectoralis fascia, by suturing with 1-0 Surgilon. . Complete hemostasis was achieved. Sponge counts were confirmed. The lead was attached to a [employer] generator. The generator was placed in an antibiotic mesh - TYREX. The lead was positioned behind the generator.The pocket was closed in layers. Skin was approximated using 4-0 Vicryl. IMPLANTED DEVICES: VENTRICULAR LEAD: Model number: [id number]/[id number] Serial number: [id number] Make: Medtronic GENERATOR Brand:FABIÁN XT SR MRI SureScan Model number: [id number] Serial number: [id number] Make: Medtronic TYREX Reference # CMRM [id number] Lot# [id number] Make Medtronic IMPLANTATION DATA: With the pacing system analyzer, the R wave sensing was 5.4 millivolts with a lead impedance of 1200 and a pacing threshold was 0.4 volts at 0.5 milliseconds. Through the device, the R-wave sensing was 5.2 millivolts with a lead impedance of 741 and a pacing threshold was 0.5 volts at 0.4 milliseconds. The atrial sensing was The pacemaker was set for VVIR mode with upper rate of 130 and a lower rate of 60. A pressure dressing was applied over the pacemaker site. The patient was transferred to the Medical Floor in stable condition. A chest x-ray was ordered to confirm the lead position and also to rule out any pneumothorax.
[2020-06-20] MEDS: FUROsemide 40 mg Tablet 60 MG PO (12:39)
--- NOTE | 2020-06-20 12:39 | XR_ITS ---
WS: [id number] Portable AP upright chest, 06/20/2020 Clinical Data: s/p pacemaker placement Comparison: Portable chest, 06/03/2020. Findings: There is a permanent single lead pacemaker with the wire ending in the right ventricle. The generator is overlying the left axilla. No nodules, masses or effusions are seen. The heart is sligh tly enlarged. The pulmonary vascularity is not increased. No pneumonia or pneumothorax is seen. The a ortic arch and descending aorta show calcification and tortuosity. Monitor leads are on the chest wal l. XR/XR chest 1V portable [id number] Impression: 1. Satisfactory insertion of permanent pacemaker. 2. Cardiomegaly and atherosclerosis.
[2020-06-20] MEDS: gabapentin 400 mg Capsule 800 MG PO ×2 (12:40→21:01)
[2020-06-20] MEDS: potassium chloride ER 10 mEq Tablet PO (12:40)
[2020-06-20] MEDS: diclofenac 1% Topical Gel 100 gm 1 APPLIC TOPICAL ×2 (14:31→21:01)
[2020-06-20] MEDS: oxyCODONE-APAP 5-325 mg Tablet 1 TAB PO (14:39)
--- NOTE | 2020-06-20 15:06 | PC.NURSE ---
received from molder labels at 1055 .report received.pt is alert and awake and oriented x 4.100% v-paced on monitor.denies pain at present.left upper chest with pressure drsg dry and intact.no hematoma noted.arm immobilizer is on.vss.instructed in activity restrictions post pm insertion...and instructed to notify staff for any pain,bleeding,swelling,or for any concerns at all.
[2020-06-20 17:34] LABS: Glucose Point of Care 254 mg/dL (70-110)
[2020-06-20] MEDS: sacubitril/valsartan 24-26 mg Tablet 1 EACH PO (17:48)
[2020-06-20] MEDS: omega-3 fatty acids 1,000 mg Capsule 1000 MG PO (17:48)
[2020-06-20] MEDS: pantoprazole DR 40 mg Tablet PO (17:49)
[2020-06-20 20:40] LABS: Glucose Point of Care 85 mg/dL (70-110)
[2020-06-21] VITALS (9 sets, daily range): BP systolic 110–131; BP diastolic 69–73; PULSE 60–62; RESP 14–26; TEMP 36.3–36.7; O2SAT 95–99
[2020-06-21] MEDS: sodium chloride 0.9% 1,000 ML 75 ML IV (01:56)
--- NOTE | 2020-06-21 06:00 | ECG_ITS ---
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 Measurements Intervals [place] Rate: 59 P: AK: QRS: -83 QRSD: 202 T: 91 QT: 498 QTc: 497 Interpretive Statements ELECTRONIC VENTRICULAR PACEMAKER-100% V paced rhythm ABNORMAL RHYTHM ECG WARNING: DATA QUALITY MAY AFFECT INTERPRETATION Compared to ECG 06/03/2020 22:44:32 Supraventricular rhythm no longer present Incomplete right bundle-branch block no longer present Electronically Signed On 06-21-2020 19:42:07 CENTRAL SUPPLY TECH by Luc Roque M.D. [id number]
[2020-06-21] MEDS: levothyroxine 100 mcg Tablet PO (06:38)
[2020-06-21 06:41] LABS: Glucose Point of Care 145 mg/dL (70-110)
[2020-06-21] MEDS: diclofenac 1% Topical Gel 100 gm 1 APPLIC TOPICAL (08:20)
[2020-06-21] MEDS: oxyCODONE-APAP 5-325 mg Tablet 1 TAB PO (08:21)
[2020-06-21] MEDS: potassium chloride ER 10 mEq Tablet PO (08:23)
[2020-06-21] MEDS: pantoprazole DR 40 mg Tablet PO (08:23)
[2020-06-21] MEDS: sacubitril/valsartan 24-26 mg Tablet 1 EACH PO (08:24)
[2020-06-21] MEDS: spironolactone 25 mg Tablet PO (08:24)
[2020-06-21] MEDS: gabapentin 400 mg Capsule 800 MG PO (08:24)
[2020-06-21] MEDS: FUROsemide 40 mg Tablet 60 MG PO (08:24)
[2020-06-21] MEDS: omega-3 fatty acids 1,000 mg Capsule 1000 MG PO (08:24)
--- NOTE | 2020-06-21 09:44 | PM.PN ---
Subjective Subjective: Interval history: Patient underwent permanent pacemaker implantation yesterday. He had an uneventful postprocedure course. No hematoma bleeding from the pacemaker site. Chest x-ray shows stable lead positioning is appropriate with no evidence of pneumothorax. Medications: Reviewed: Yes Medication Review Details: Current Medications Diclofenac Sodium (Diclofenac 1% Topical Gel 100 Gm) 1 applic TOPICAL QID [facility] Last Admin: 06/21/20 08:20 Dose: 1 applic Documented by: Furosemide (Furosemide 40 Mg Tablet) 60 mg PO DAILY [facility] Last Admin: 06/21/20 08:24 Dose: 60 mg Documented by: Gabapentin (Gabapentin 400 Mg Capsule) 800 mg PO TID [facility] Last Admin: 06/21/20 08:24 Dose: 800 mg Documented by: Sodium Chloride (Sodium Chloride 0.9%) 1,000 mls @ 75 mls/hr IV .[id number] [facility] Last Infusion: 06/21/20 09:34 Dose: Infused Documented by: Insulin Aspart (Insulin Aspart 100 Unit/1 Ml) 0 unit SUBCUT WM&BEDTIME [facility]; Protocol Last Admin: 06/21/20 07:21 Dose: 2 unit Documented by: Levothyroxine Sodium (Levothyroxine 100 Mcg Tablet) 100 mcg PO QAM [facility] Last Admin: 06/21/20 06:38 Dose: 100 mcg Documented by: Non-Formulary Medication (Alogliptin) 25 mg PO QAM [facility] Last Admin: 06/21/20 06:38 Dose: Not Given Documented by: Non-Formulary Medication (Cinnamon Bark [Cinnamon]) 500 mg PO BID [facility] Last Admin: 06/21/20 08:31 Dose: Not Given Documented by: Non-Formulary Medication (Glipizide) 20 mg PO BID [facility] Last Admin: 06/21/20 08:31 Dose: Not Given Documented by: Non-Formulary Medication (Pentoxifylline) 400 mg PO TID [facility] Last Admin: 06/21/20 08:32 Dose: Not Given Documented by: Non-Formulary Medication (Vitamin B Complex) 1 cap PO PRN PRN PRN Reason: PRN Non-Formulary Medication (Vitamin E (Dl, Acetate)) 1,000 unit PO PRN PRN PRN Reason: PRN Sldgu-9-Bifg Ethyl Esters ([place]-3 Fatty Acids 1,000 Mg Capsule) 1,000 mg PO BID [facility] Last Admin: 06/21/20 08:24 Dose: 1,000 mg Documented by: Oxycodone/Acetaminophen (Oxycodone-Apap 5-325 Mg Tablet) 1 tab PO BID PRN PRN Reason: pain Last Admin: 06/21/20 08:21 Dose: 1 tab Documented by: Pantoprazole Sodium (Pantoprazole Dr 40 Mg Tablet) 40 mg PO BID [facility] Last Admin: 06/21/20 08:23 Dose: 40 mg Documented by: Potassium Chloride (Potassium Chloride Er 10 Meq Tablet) 10 meq PO DAILY [facility] Last Admin: 06/21/20 08:23 Dose: 10 meq Documented by: Sacubitril/Valsartan (Sacubitril/Valsartan 24-26 Mg Tablet) 1 each PO BID [facility] Last Admin: 06/21/20 08:24 Dose: 1 each Documented by: Spironolactone (Spironolactone 25 Mg Tablet) 25 mg PO DAILY [facility] Last Admin: 06/21/20 08:24 Dose: 25 mg Documented by: Vitals/I&O/Wt Last Vital Signs Temp 97.4 F L 06/21/20 08:00 Pulse 60 06/21/20 09:14 Resp 18 06/21/20 09:14 BP 131/73 06/21/20 08:00 Pulse Ox 98 06/21/20 09:14 06/20/20 06/21/20 06/21/20 22:59 06:59 14:59 Intake Total 400 / 400 50 / 450 812.5 / 812.5 Output Total 1600 / 1600 450 / 2050 Balance -1200 / -1200 -400 / -1600 812.5 / 812.5 Weight last 48 hrs Weight 268 lb Physical Exam Narrative: EXAM NARRATIVE: GENERAL: The patient is alert and oriented times three. Not in any acute distress. HEENT: No significant pallor, icterus or lymphadenopathy.Oral cavity: There are no mucous membrane lesions. NECK: Trachea appears to be central. No masses noted. No JVD or thyromegaly appreciated. RESPIRATORY: Chest is symmetrical. No intercostals muscle retraction or any accessory muscle activation. There is no chest wall tenderness. Breath sounds are heard bilaterally. No rales or rhonchi heard. No evidence of any consolidation. Pacemaker site has no hematoma bleeding. BREASTS: Deferred. HEART: The first heart sound is variable. Second heart sound is normal. L. No S3 or S4. No significant murmurs. No pericardial rub ABDOMEN: No vessel pulsations or distention. No tenderness. No organomegaly appreciated. Bowel sounds are normally heard. : Deferred. RECTAL: Deferred. LYMPHATIC: No lymphadenopathy noted in the neck or groin. EXTREMITIES: No edema or cyanosis. No clubbing. MUSCULOSKELETAL: No acute joint deformities or swelling SKIN: There are no significant rashes or ecchymosis NEUROPSYCHIATRIC: The patient is alert and oriented x3. Appears to be in a good mood. No tremors or rigidity noted. A&P Assessment and plan (1) Status post cardiac pacemaker procedure: Pacemaker is functioning okay. He will be seen in the office next week for a repeat pacemaker check and wound check. Status: Acute (2) Chronic atrial fibrillation: Will be restarted on the Eliquis this evening. Continue on the other current medications. Status: Inactive (3) PAD (peripheral artery disease): Currently remaining stable. Continue on the current medications. Status: Acute (4) Nonischemic cardiomyopathy: No evidence of cardiac decompensation. May continue on the current measures. Status: Acute (5) Atherosclerotic heart disease: Mild CAD, stable. Status: Inactive Qualifiers: Coronary Disease-Associated Artery/Lesion type: [place] artery [place]ime vs. transplanted heart: [place] heart Associated angina: without angina Qualified Code(s): I25.10 - Atherosclerotic heart disease of [place] coronary artery without angina pectoris Additional A&P Information Since the patient is remaining stable, will be discharged home today. Attestations Medical Necessity Statement*: Discharge home today Coding Level of Care Code Acute Cancer Spec for Myles Boo Diagnoses Status post cardiac pacemaker procedure Z95.0 Chronic atrial fibrillation I48.20 PAD (peripheral artery disease) I73.9 Nonischemic cardiomyopathy I42.8 Atherosclerotic heart disease I25.10 Coronary Disease-Associated Artery/Lesion type: [place] artery [place] vs. transplanted heart: [place] heart Associated angina: without angina
[2020-06-21 11:46] LABS: Glucose Point of Care 156 mg/dL (70-110)
--- NOTE | 2020-06-21 12:20 | PC.NURSE ---
Pt d/c home with via wheelchair out. Pt instructions were provided and pacemaker ID card was sent home with him. Pt understood all instructions regarding post pacemaker orders and restrictions. Patient had no questions regarding d/c. VS were stable, pt was alert and oriented upon departure.
== END 2020-06-21 12:22 | disposition home or self-care (01) ==
LOC: CSU 09:54
PROVIDERS: Admitting Provider Internal Medicine Cardiovascular Disease; PCP Family Medicine; Visit Provider Internal Medicine Cardiovascular Disease
DX: I48.20 Chronic atrial fibrillation, unspecified (principal); R00.1 Bradycardia, unspecified; Z95.0 Presence of cardiac pacemaker; I73.9 Peripheral vascular disease, unspecified; I42.8 Other cardiomyopathies; I25.10 Atherosclerotic heart disease of native coronary artery without angina pectoris; J44.9 Chronic obstructive pulmonary disease, unspecified; E11.9 Type 2 diabetes mellitus without complications
CPT/HCPCS: 33207; 36415; 36416; 71045; 82962; 93005; 94660; 96372; 97110; 97165; 97535; C1769; C1786; C1894; C1898; G0378; J0690; J1644; J1815; J2250; J3010; J3370; J3490; J7030; J7050; Q9967

== ENCOUNTER 2020-07-01 08:08 | Outpatient (CLI) | payer OTHER, SELFPAY | END 2020-07-01 08:09 | disposition home or self-care (01) | LOC: WOUND 08:12 | PROVIDERS: PCP Family Medicine; Visit Provider Thoracic Surgery (Cardiothoracic Vascular Surgery) | DX: E11.9 Type 2 diabetes mellitus without complications (principal); Z09 Encounter for follow-up examination after completed treatment for conditions other than malignant neoplasm | CPT/HCPCS: 99212 ==

== ENCOUNTER → 2020-07-30 09:19 | Outpatient (BNVA) | payer OTHER, SELFPAY | PROVIDERS: PCP Family Medicine; Visit Provider Anesthesiology Pain Medicine | DX: M25.551 Pain in right hip (principal); M25.552 Pain in left hip; M19.019 Primary osteoarthritis, unspecified shoulder; G62.9 Polyneuropathy, unspecified; M19.079 Primary osteoarthritis, unspecified ankle and foot; M19.021 Primary osteoarthritis, right elbow; M54.9 Dorsalgia, unspecified; I48.20 Chronic atrial fibrillation, unspecified; I87.2 Venous insufficiency (chronic) (peripheral); Z79.891 Long term (current) use of opiate analgesic | CPT/HCPCS: 99214 ==

== ENCOUNTER → 2020-08-27 10:12 | Outpatient (BNVA) | payer OTHER, SELFPAY | PROVIDERS: PCP Family Medicine; Visit Provider Anesthesiology Pain Medicine | DX: G89.29 Other chronic pain (principal); M19.021 Primary osteoarthritis, right elbow; M25.551 Pain in right hip; M25.511 Pain in right shoulder; M79.605 Pain in left leg; G62.9 Polyneuropathy, unspecified; M54.9 Dorsalgia, unspecified; M25.9 Joint disorder, unspecified; I48.20 Chronic atrial fibrillation, unspecified; I87.2 Venous insufficiency (chronic) (peripheral); Z79.891 Long term (current) use of opiate analgesic | CPT/HCPCS: 99214 ==

== ENCOUNTER 2020-10-31 15:10 | Emergency (ER) | payer OTHER, MEDICARE, SELFPAY ==
[2020-10-31 15:57] VITALS: BP 140/88; PULSE 76; RESP 16; TEMP 36.3; O2SAT 95; BMI 33.9
--- NOTE | 2020-10-31 16:50 | W.ED.MALEGU ---
HPI - Male Genitourinary General: Chief complaint: Urogenital-Male Stated complaint: difficulty urinating Time Seen by Provider: 10/31/20 16:50 History of Present Illness: HPI Narrative: 75-year-old male presents emergency room complaining he has been a little more short of breath lately. Feels like he has been urinating as much he thinks he needs an increased dose of Lasix. Currently takes 60 g p.o. daily. Denies dysuria urgency or frequency not had a productive cough he denies any chest pain. No orthopnea. No myalgias no fever. Not had any significant swelling of his legs. Onset (ago): day(s) Severity: moderate Relieving factors: none Exacerbating factors: none Associated symptoms: Reports swelling; Deny discharge, dysuria, fevers/chills, hematuria, nausea, rash, urinary incontinence, urinary retention, mass or vomiting Review of Systems Const: Denies: fever(s), chills, body aches, change in appetite, fatigue or malaise ENMT: Denies: throat pain, ear or mastoid pain, nasal discharge or nasal congestion Card: Denies: chest pain, edema, dyspnea on exertion or orthopnea Resp: Denies: dyspnea, productive cough or non-productive cough GI: Denies: nausea or vomiting : Denies: dysuria, urinary incontinence or hematuria Skin/Breast: Denies: rash or pruritus PFSH ED PFSH: Medical History Abdominal pain Abnormal nuclear stress test Acute exacerbation of CHF (congestive heart failure) Acute on chronic diastolic (congestive) heart failure Acute on chronic systolic heart failure BRAIN (acute kidney injury) Anasarca Atherosclerotic heart disease Bradycardia Patient has a longstanding history of atrial fibrillation and bradycardia. Chest pain CHF (congestive heart failure) Chronic atrial fibrillation Patient is on long-term oral anticoagulation. Eliquis held for possible LHC in 1-2 days. Chronic venous insufficiency Cirrhosis COPD (chronic obstructive pulmonary disease) Diabetes Diverticulosis Hyperlipidemia Hypertension Left upper quadrant pain CHCF (current) use of opiate analgesic Non-healing ulcer Osteomyelitis Right toe status post debridement and bone biopsy, [facility] [place] PAD (peripheral artery disease) Patient has two-vessel runoff on the left side and three-vessel runoff on the right side. He has mild to moderate diffuse peripheral arterial disease. Pain management contract signed Sleep apnea SOB (shortness of breath) Patient is known to have COPD Varicose veins of bilateral lower extremities with other complications Surgical History History of hip surgery Hx of toe surgery Hx of tonsillectomy Family History Other CAD (coronary artery disease) Cancer Diabetes Denies family history of Clotting disorder Dementia Chronic kidney disease (CKD) Suicide Anesthesia complication Bleeding disorder Lung disease Stroke Social History Smoking and tobacco status: never smoked Alcohol intake: never Lives independently: Yes Household members: spouse Housing: House Marital status: Current occupational status: employed History of recent travel: No Physical Exam Const: COMMON NORMALS: patient oriented x3 and alert GENERAL APPEARANCE: cooperative, comfortable, well kempt and well developed NUTRITIONAL APPEARANCE: obese ORIENTATION/CONSCIOUSNESS: Yes awake, Yes oriented to person and Yes oriented to place HENMT: COMMON NORMALS: normocephalic, atraumatic and EAC's normal HEAD & SCALP: normocephalic and atraumatic EXTERNAL AUDITORY CANAL: EAC's normal Eye: COMMON NORMALS: Equal, round and reactive pupils present, EOMs intact bilaterally, conjunctivae normal and no scleral icterus CONJUNCTIVA: Yes conjunctivae normal PUPIL: Yes Equal, round and reactive pupils present Neck/C-Spine: COMMON NORMALS: full ROM, no lymphadenopathy, supple, no meningeal signs and Thyroid normal THYROID: Thyroid normal and asymmetrical Lymph: LYMPHATIC: no lymphadenopathy noted Resp: COMMON NORMALS: normal respiratory effort, No retractions, No use of accessory muscles and clear to auscultation bilaterally AUSCULTATION: clear to auscultation bilaterally Cardio: COMMON NORMALS: regular rate and regular rhythm RATE: regular rate RHYTHM: regular rhythm HEART SOUNDS: no murmurs GI: COMMON NORMALS: Normal to inspection, nondistended, normoactive bowel sounds present, Soft to palpation and No hepatosplenomegaly present PALPATION: Yes Soft to palpation and Yes No hepatosplenomegaly present : COMMON NORMALS: Yes no CVA tenderness BLADDER/KIDNEY EXAM: Yes no CVA tenderness Back/Pelvis: COMMON NORMALS: no CVA tenderness LUMBAR SPINE/LOWER BACK: Yes normal to inspection Extremity: COMMON NORMALS: no clubbing, cyanosis or edema, no calf tenderness and no pedal edema Neuro: COMMON NORMALS: patient oriented x3 SENSORIUM/ORIENTATION: Yes alert, Yes oriented to person and Yes oriented to place MENINGEAL SIGNS: Yes no meningeal signs Psych: APPEARANCE: Yes well kempt Skin: COMMON NORMALS: no rashes or lesions noted and turgor normal GENERAL SKIN EXAM: no rashes or lesions noted and turgor normal Course Vital Signs: Vital signs: Vital Signs Temperature 97.4 F L 10/31/20 15:57 Pulse Rate 60 10/31/20 18:42 Respiratory Rate 16 10/31/20 18:42 Blood Pressure 145/93 10/31/20 18:42 Pulse Oximetry 93 10/31/20 18:42 MDM - Male MDM Narrative: Medical decision making narrative: Patient given IV fluids he is feeling somewhat better will start on Flomax also add Cipro for cystitis recheck with primary care doctor return if has any worsening or change symptoms. Advised him he should get his kidney function rechecked the next 5 days. Lab Data: Labs: Lab Results 10/31/20 10/31/20 10/31/20 Range/Units 17:20 17:20 17:52 WBC 6.5 (4.0-10.0) 10^3/ uL RBC 3.74 L (4.1-5.3) 10^6/u L Hgb 10.5 L (11.7-16.6) g/dL Hct 33.7 L (42.0-52.0) % MCV 90.1 (80-94) fL MCH 28.1 (28.0-34.0) pg MCHC 31.2 (30.0-36.0) g/dL RDW 16.6 H (12.1-15.1) % Plt Count 280 (130-400) 10^3/c mm MPV 10.0 (7.4-10.4) fL Neut % (Auto) 69.3 % Lymph % (Auto) 15.7 % [place] % (Auto) 7.6 % Eos % (Auto) 6.0 % Baso % (Auto) 0.9 % Neut # (Auto) 4.50 (1.8-7.7) 10^3/u L Lymph # (Auto) 1.0 (0.8-4.8) 10^3/u L [place] # (Auto) 0.5 (0.2-0.9) 10^3/u L Eos # (Auto) 0.4 (0.0-0.8) 10^3/u L Baso # (Auto) 0.1 (0.0-0.1) 10^3/u L Nucleated RBC % (a uto) 0 % Nucleated RBCs # 0.0 /100WBC Sodium 131 L (136-145) mmol/L Potassium 4.7 (3.5-5.1) mmol/L Chloride 94 L (98-107) mmol/L Carbon Dioxide 23 (22-29) mmol/L Anion Gap 18.7 (5-19) BUN 32 H (8-23) mg/dL Creatinine 1.7 H (0.7-1.2) mg/dL GFR Calculation Not Reportable Glucose 152 H (65-115) mg/dL Calculated Osmolal ity 282 L (285-295) mOsm/k g Calcium 8.8 (8.5-10.5) mg/dL Total Bilirubin 0.5 (0.15-1.2) mg/dL AST 29 (0-40) U/L ALT 12 (0-41) U/L Alkaline Phosphata se 168 H (40-130) IU/L Total Protein 7.6 (6.6-8.7) g/dL Albumin 3.5 (3.5-5.2) g/dL Globulin 4.1 (1.3-4.6) g/dL Urine Color Straw (Yellow) Urine Appearance Sl hazy (CLEAR) Urine pH 5 (5-7) Ur Specific Gravit y 1.005 (1.005-1.030) Urine Protein Neg (Negative) Urine Glucose (UA) Norm (Normal) Urine Ketones Negative (Negative) Urine Blood 3+ H (Negative) Urine Nitrate Negative (Negative) Urine Bilirubin Neg (Negative) Urine Urobilinogen Norm (Negative) mg/dL Ur Leukocyte Nasima ase Negative (Negative) Urine RBC Too numerous to c nt H (0-2) /hpf Urine WBC 0-4 H (0-5) /hpf Ur Squamous Epith Cells 0-4 H (0-5) /hpf Amorphous Sediment Not Reportable Urine Bacteria 2+ H (NONE) /hpf Discharge Plan Discharge Patient Disposition: Home Clinical Impression: Mild dehydration, Benign prostatic hyperplasia, Cystitis, Hematuria Condition: Stable Prescriptions: New Flomax 0.4 mg capsule 0.4 mg PO DAILY Qty: 30 RF: 0 Cipro 500 mg tablet 500 mg PO BID Qty: 14 RF: 0 No Action pentoxifylline 400 mg tablet extended release 400 mg PO TID RF: 0 glipizide 10 mg tablet 20 mg PO BID RF: 0 metformin 850 mg tablet 850 mg PO TID RF: 0 Hold Instructions: Resume on 06/23/20. levothyroxine 100 mcg capsule 100 mcg PO QAM RF: 0 spironolactone 25 mg tablet 25 mg PO DAILY RF: 0 omeprazole 20 mg capsule,delayed release(DR/EC) 20 mg PO BID RF: 0 gabapentin 800 mg tablet 800 mg PO TID RF: 0 vitamin E (dl, acetate) 1,000 unit capsule 1,000 unit PO PRN RF: 0 cinnamon bark [Cinnamon] 500 mg capsule 500 mg PO BID RF: 0 vitamin B complex Capsule 1 cap PO PRN RF: 0 Eliquis 5 mg tablet 5 mg PO BID RF: 0 oxycodone-acetaminophen 5-325 mg tablet 1 tab PO BID PRN (Reason: pain) 30 Days Qty: 45 RF: 0 alogliptin 25 mg tablet 25 mg PO QAM RF: 0 atorvastatin 40 mg tablet See Rx Instructions PO DAILY RF: 0 oxycodone-acetaminophen 7.5-325 mg tablet 1 tab PO TID PRN (Reason: pain) 30 Days Qty: 90 RF: 0 Fish Oil 1 cap PO BID RF: 0 Entresto 24-26 mg tablet 1 tab PO BID Qty: 60 RF: 0 potassium chloride [Klor-Con 10] 10 mEq tablet extended release 10 meq PO DAILY Qty: 30 RF: 0 diclofenac sodium [Voltaren] 1 % gel 2 g topical QID Qty: 100 RF: 0 furosemide 20 mg tablet 60 mg PO DAILY Qty: 0 RF: 0 Discharge Orders: Discharge ED (Routine); Ordered 10/31/20 Ordered By: Benedict Lorenzana Referrals: Mary Lou Anaya MD [Primary Care Provider] - Discharge Diet: Usual diet Discharge Activity: Increase activity as tolerated Patient Instructions: Opioid Safety Activity Restrictions/Additional Instructions: Case managmeent will make a follow up appointment with Dr. Chávez for the blood in the urine. COmplete the course of antibiotics prescribed. Coding Level of Care Code ED Agriculture Laborer for Myles Fwramiro Exam Comprehensive
--- NOTE | 2020-10-31 17:08 | XRR_ITS ---
PROCEDURE INFORMATION: Exam: XR Chest Exam date and time: 10/31/2020 5:08 PM Age: 75 years old Clinical indication: Cough; Prior surgery; Surgery type: Pacemaker; Additional info: Dyspnea/cough TECHNIQUE: Imaging protocol: XR of the chest. Views: 1 view. Total images: 1 COMPARISON: CR XR chest 1V portable [id number] 06/20/2020 1:15 PM FINDINGS: Tubes, catheters and devices: Pacemaker. Lungs: No visible active interstitial or alveolar airspace disease. Mild senile fibrosis. Pleural spaces: No pleural effusion. No pneumothorax. Heart/Mediastinum: Cardiomegaly with arteriosclerosis. Bones/joints: Advanced primary osteoarthritis of the shoulders. Mild scoliotic curvature of the spine. XR/XR chest 1V portable [id number] IMPRESSION: Nonacute.
[2020-10-31 17:37] LABS: Basophils # 0.1 10^3/uL (0.0-0.1); Basophils % 0.9 %; Eosinophils # 0.4 10^3/uL (0.0-0.8); Hematocrit 33.7 % (42.0-52.0); Hemoglobin 10.5 g/dL (11.7-16.6); Lymphocytes % 15.7 %; Mean Corpuscular HGB Conc 31.2 g/dL (30.0-36.0); Mean Corpuscular Hemoglobin 28.1 pg (28.0-34.0); Mean Corpuscular Volume 90.1 fL (80-94); Monocytes # 0.5 10^3/uL (0.2-0.9); Monocytes % 7.6 %; Neutrophils % 69.3 %; Nucleated Red Blood Cells % 0 %; Platelet Count 280 10^3/cmm (130-400); Red Blood Count 3.74 10^6/uL (4.1-5.3); Red Cell Distribution Width 16.6 % (12.1-15.1); White Blood Count 6.5 10^3/uL (4.0-10.0)
[2020-10-31 17:47] LABS: Alanine Aminotransferase 12 U/L (0-41); Albumin Level 3.5 g/dL (3.5-5.2); Alkaline Phosphatase 168 IU/L (40-130); Anion Gap 18.7 (5-19); Aspartate Amino Transferase 29 U/L (0-40); Blood Urea Nitrogen 32 mg/dL (8-23); Calcium 8.8 mg/dL (8.5-10.5); Carbon Dioxide 23 mmol/L (22-29); Chloride 94 mmol/L (98-107); Globulin 4.1 g/dL (1.3-4.6); Glucose 152 mg/dL (65-115); Osmolality Calculated 282 mOsm/kg (285-295); Potassium 4.7 mmol/L (3.5-5.1); Sodium 131 mmol/L (136-145); Total Bilirubin 0.5 mg/dL (0.15-1.2); Total Protein 7.6 g/dL (6.6-8.7)
--- NOTE | 2020-10-31 18:00 | PC.NURSE ---
239ml post void residual reported to Dr. Lorenzana.
[2020-10-31] MEDS: sodium chloride 0.9% 500 ML 999 ML IV (18:08)
[2020-10-31 18:16] LABS: Add Urine Microscopic? YES; Bilirubin Urine Neg (Negative); Blood Urine 3+ (Negative); Glucose Urine UA Norm (Normal); Ketones Urine Negative (Negative); Leukocyte Esterase Urine Negative (Negative); Nitrate Urine Negative (Negative); Protein Urine Neg (Negative); Specific Gravity, Urine 1.005 (1.005-1.030); Urine Appearance SL Hazy (CLEAR); Urine Color Straw (Yellow); Urobilinogen Urine Norm (Negative); pH Urine 5 (5-7)
[2020-10-31 18:17] LABS: RBC Urine TOO NUMEROUS TO CNT /hpf (0-2); Squamous Epithelial Cell Urine 0-4 /hpf (0-5); WBC Urine 0-4 /hpf (0-5)
[2020-10-31 18:18] LABS: Add Urine Culture? Yes; Bacteria Urine 2+ /hpf
[2020-10-31 18:42] VITALS: BP 145/93; PULSE 60; RESP 16; O2SAT 93
== END 2020-10-31 18:46 | disposition home or self-care (01) ==
PROVIDERS: Emergency Provider Family Medicine; PCP Family Medicine
DX: N40.1 Benign prostatic hyperplasia with lower urinary tract symptoms (principal); N30.91 Cystitis, unspecified with hematuria; E86.0 Dehydration; I11.0 Hypertensive heart disease with heart failure; I50.33 Acute on chronic diastolic (congestive) heart failure; I25.10 Atherosclerotic heart disease of native coronary artery without angina pectoris; I48.20 Chronic atrial fibrillation, unspecified; J44.9 Chronic obstructive pulmonary disease, unspecified; E11.9 Type 2 diabetes mellitus without complications; E78.5 Hyperlipidemia, unspecified; Z79.84 Long term (current) use of oral hypoglycemic drugs; Z79.01 Long term (current) use of anticoagulants
CPT/HCPCS: 71045; 80053; 81001; 85025; 87086; 99283; J7040

== ENCOUNTER 2020-11-04 10:34 | Emergency (ER) | payer OTHER, MEDICARE, SELFPAY ==
[2020-11-04 10:41] VITALS: BP 159/78; PULSE 81; RESP 28; TEMP 37.1; O2SAT 93; BMI 35.6
--- NOTE | 2020-11-04 10:51 | XR_ITS ---
WS: [id number] XR chest 1V portable [id number] REASON FOR EXAM: SOB FINDINGS: Pacemaker in place over the left chest with transvenous less subclavian pacer wire to the right ventr icular apex. Moderate cardiomegaly. Central vascular congestion. No definite acute pulmonary parenchymal or pleural abnormality. Degenerative spondylosis in the mid and lower thoracic spine and degenerative arthropathy in both jolene ulders, worse on the right. XR/XR chest 1V portable [id number] IMPRESSION: The chest is unchanged compared to 10/31/2020 with no acute abnormality identifi ed.
--- NOTE | 2020-11-04 10:52 | ECG_ITS ---
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 Measurements Intervals [place] Rate: 65 P: [place]: QRS: -84 QRSD: 204 T: 92 QT: 472 QTc: 493 Interpretive Statements ELECTRONIC VENTRICULAR PACEMAKER ABNORMAL RHYTHM ECG Compared to ECG 06/21/2020 06:11:34 No significant changes Electronically Signed On 11-10-2020 0:32:36 CDT by Brittaney Lim M.D. [id number]
--- NOTE | 2020-11-04 12:23 | ED_ITS ---
HPI - SOB/Dyspnea General: Chief Complaint: Shortness of Breath/Dyspnea Stated Complaint: sob, Time Seen by Provider: 11/04/20 12:18 History of Present Illness: HPI Narrative: This patient is a 75-year-old male who presents to the emergency department shortness of breath. Patient states he has continued to get increasing shortness of breath they have been visited in the emergency department a week ago. Patient states at that time he thought he was fluid overloaded. Patient presents back again exhibit fluid overload for congestive heart failure Covid infection. Patient [place] for the same. The medical evaluation treat as needed. Patient denies cough. Patient denies fever. MD elicited complaint: shortness of breath Onset (ago): day(s) Context: occurred during exertion Timing: constant Severity: similar to previous episodes Exacerbating factors: nothing and exertion Relieving factors: nothing Associated symptoms: Deny abdominal pain, chest pain, extremity pain, fever(s), lightheadedness, nausea, palpitations or vomiting Review of Systems General: Reports: 10 or more systems reviewed and unremarkable except in HPI and below Const: Denies: fever(s), chills, body aches or fatigue Eyes: Denies: change in vision or blurry vision ENMT: Denies: throat pain, hoarseness or mouth pain Card: Denies: chest pain, palpitations, irregular heart rhythm, edema, swelling of feet/ankles or lightheadedness Resp: Reports: dyspnea; Denies: productive cough, non-productive cough, wheezing or pain on inspiration GI: Denies: abdominal pain, nausea or vomiting : Denies: flank pain, dysuria, urinary frequency, urinary urgency or urinary hesitancy Musc: Denies: neck pain, back pain, extremity pain, extremity swelling, joint pain, joint swelling, joint redness, joint warmth or limited range of motion Skin/Breast: Denies: rash, pruritus, erythema or skin tenderness Neuro: Denies: headache(s), numbness in extremities or weakness in extremities Psych: Denies: anxiety or depression PFSH ED PFSH: Medical History Abdominal pain Abnormal nuclear stress test Acute exacerbation of CHF (congestive heart failure) Acute on chronic diastolic (congestive) heart failure Acute on chronic systolic heart failure BRAIN (acute kidney injury) Anasarca Atherosclerotic heart disease Bradycardia Patient has a longstanding history of atrial fibrillation and bradycardia. Chest pain CHF (congestive heart failure) Chronic atrial fibrillation Patient is on long-term oral anticoagulation. Eliquis held for possible LHC in 1-2 days. Chronic venous insufficiency Cirrhosis COPD (chronic obstructive pulmonary disease) Diabetes Diverticulosis Hyperlipidemia Hypertension Left upper quadrant pain prison (current) use of opiate analgesic Non-healing ulcer Osteomyelitis Right toe status post debridement and bone biopsy, [facility] 2018 PAD (peripheral artery disease) Patient has two-vessel runoff on the left side and three-vessel runoff on the right side. He has mild to moderate diffuse peripheral arterial disease. Pain management contract signed Sleep apnea SOB (shortness of breath) Patient is known to have COPD Varicose veins of bilateral lower extremities with other complications Surgical History History of hip surgery Hx of toe surgery Hx of tonsillectomy Family History Other CAD (coronary artery disease) Cancer Diabetes Denies family history of Clotting disorder Dementia Chronic kidney disease (CKD) Suicide Anesthesia complication Bleeding disorder Lung disease Stroke Social History Alcohol intake: never Lives independently: Yes Household members: spouse Housing: House Marital status: Current occupational status: employed History of recent travel: No Physical Exam Const: COMMON NORMALS: no acute distress, average body habitus, patient oriented x3, no limitations, healthy appearing, alert and well nourished HENMT: COMMON NORMALS: normocephalic, atraumatic, hearing grossly normal bilaterally, external ears normal, EAC's normal, TM's normal bilaterally, Normal external nose present, Normal nasal mucous membranes and turbinates present, moist oral mucous membranes, oropharynx normal, dentition normal and gingiva normal HEAD & SCALP: normocephalic and atraumatic NOSE: Normal external nose present and Normal nasal mucous membranes and turbinates present EXTERNAL EAR: Yes external ears normal EXTERNAL AUDITORY CANAL: EAC's normal TYMPANIC MEMBRANE: TM's normal bilaterally Neck/C-Spine: COMMON NORMALS: full ROM, no lymphadenopathy, supple, no meningeal signs, no JVD, Thyroid normal and No carotid bruits THYROID: Thyroid normal Chest: COMMONS NORMALS: normal inspection of the chest, normal palpation of entire chest wall, normal inspection of the breasts and normal palpation of the breasts Breast/axilla inspection: Yes normal inspection of the breasts BREAST/AXILLA PALPATION: Yes normal palpation of the breasts Resp: COMMON NORMALS: No retractions, No use of accessory muscles, clear to auscultation bilaterally and percussion normal EFFORT & INSPECTION: Yes tachypneic AUSCULTATION: clear to auscultation bilaterally PERCUSSION: percussion normal Cardio: COMMON NORMALS: no JVD, regular rate, regular rhythm, S1 normal heart sound present, S2 normal heart sound present, No gallops present (Cardio), No clicks present (Cardio), No murmurs present (Cardio), No rub (Cardio) and Peripheral pulses 2+ throughout RATE: regular rate RHYTHM: regular rhythm HEART SOUNDS: S1 normal heart sound present and S2 normal heart sound present PERIPHERAL PULSES: Peripheral pulses 2+ throughout GI: COMMON NORMALS: Normal to inspection, nondistended, normoactive bowel soun ds present, Soft to palpation, non-tender, No hepatosplenomegaly present, no masses and no bruits PALPATION: Yes Soft to palpation and Yes No hepatosplenomegaly present : COMMON NORMALS: Yes no CVA tenderness BLADDER/KIDNEY EXAM: Yes no CVA tenderness Back/Pelvis: COMMON NORMALS: no CVA tenderness, thoracic and lumbar spine normal to inspection, no thoracic nor lumbar tenderness, thoraco-lumbar ROM normal and straight leg raise negative bilaterally Extremity: COMMON NORMALS: normal to inspection, full ROM, capillary refill normal, no joint enlargement, no clubbing, cyanosis or edema, no calf tenderness and no pedal edema Neuro: COMMON NORMALS: patient oriented x3 SENSORIUM/ORIENTATION: Yes alert MENINGEAL SIGNS: Yes no meningeal signs Course Reevaluation(s): Reevaluation #1: Patient has no complaints of pain and no complaints of acute shortness of breath while sitting. Most symptoms occur on exertion. Patient will have a home O2 evaluation. And will be discharged home with oxygen at 2 L/min.Concerning for increasing worsening in heart failure. But appears to be stable. Patient on exertion O2 sat will get around 89. But sitting at the bedside his O2 sat is anywhere from 91-95. Patient could benefit for home O2. Patient is followed by Dr. Roque patient is agreeable to follow- up with Dr. Roque in the next 3 to 5 days. We will schedule the patient for an outpatient echocardiogram. Patient should continue all other home treatments. Time: 16:23 Consultations: Consultation #1: I did discuss at length with Dr. Cortez. We did review the patient's case including elevated D-dimer and elevated creatinine 1.7. Negative Covid. [facility] Covid test PCR has been sent out for evaluation. We did discuss options. No bed availability in in the hospital for admission at this time. We will get a CTA to rule out PE with an IV fluid bolus of 500 cc evaluate treat further as needed. Time: 13:59 Consultation #2: I did speak to Dr. Cortez. We reviewed patient's case again including CTA report previous echocardiogram. Concerning for increasing worsening in heart failure. But appears to be stable. Patient on exertion O2 sat will get around 89. But sitting at the bedside his O2 sat is anywhere from 91-95. Patient could benefit for home O2. Patient is followed by Dr. Roque patient is agreeable to follow-up with Dr. Roque in the next 3 to 5 days. We will schedule the patient for an outpatient echocardiogram. Patient should continue all other home treatments. Vital Signs: Vital signs: Vital Signs Temperature 98.8 F 11/04/20 10:41 Pulse Rate 81 11/04/20 10:41 Respiratory Rate 28 H 11/04/20 10:41 Blood Pressure 159/78 11/04/20 10:41 Pulse Oximetry 93 11/04/20 10:41 MDM - SOB/Dyspnea MDM Narrative: Medical decision making narrative: This patient is a 75-year-ol d male who presents to the emergency department shortness of breath. Patient states he has continued to get increasing shortness of breath they have been visited in the emergency department a week ago. Patient states at that time he thought he was fluid overloaded. Patient presents back again exhibit fluid overload for congestive heart failure Covid infection. Patient was [place] seen [place] for the same. The medical evaluation treat as needed. Patient denies cough. Patient denies fever. Patient has no complaints of pain and no complaints of acute shortness of breath while sitting. Most symptoms occur on exertion. Patient will have a home O2 evaluation. And will be discharged home with oxygen at 2 L/min.Concerning for increasing worsening in heart failure. But appears to be stable. Patient on exertion O2 sat will get around 89. But sitting at the bedside his O2 sat is anywhere from 91-95. Patient could benefit for home O2. Patient is followed by Dr. Roque patient is agreeable to follow-up with Dr. Roque in the next 3 to 5 days. We will schedule the patient for an outpatient echocardiogram. Patient should continue all other home treatments. I did discuss at length with Dr. Cortez. We did review the patient's case including elevated D-dimer and elevated creatinine 1.7. Negative Covid. [facility] Covid test PCR has been sent out for evaluation. We did discuss options. No bed availability in in the hospital for admission at this time. We will get a CTA to rule out PE with an IV fluid bolus of 500 cc evaluate treat further as needed. I did speak to Dr. Cortez. We reviewed patient's case again including CTA report previous echocardiogram. Concerning for increasing worsening in heart failure. But appears to be stable. Patient on exertion O2 sat will get around 89. But sitting at the bedside his O2 sat is anywhere from 91-95. Patient could benefit for home O2. Patient is followed by Dr. Roque patient is agreeable to follow-up with Dr. Roque in the next 3 to 5 days. We will schedule the patient for an outpatient echocardiogram. Patient should continue all other home treatments. Medical Records: Attestation: I reviewed the patient's medical records. Lab Data: Attestation: I reviewed the patient's lab results. Labs: Lab Results 11/04/20 11/04/20 11/04/20 Range/Units 13:00 13:00 13:00 WBC 7.3 (4.0-10.0) 10^3/ uL RBC 3.62 L (4.1-5.3) 10^6/u L Hgb 10.2 L (11.7-16.6) g/dL Hct 31.9 L (42.0-52.0) % MCV 88.1 (80-94) fL MCH 28.2 (28.0-34.0) pg MCHC 32.0 (30.0-36.0) g/dL RDW 16.8 H (12.1-15.1) % Plt Count 268 (130-400) 10^3/c mm MPV 10.1 (7.4-10.4) fL Neut % (Auto) 77.5 % Lymph % (Auto) 10.6 % [place] % (Auto) 6.7 % Eos % (Auto) 4.1 % Baso % (Auto) 0.8 % Neut # (Auto) 5.63 (1.8-7.7) 10^3/u L Lymph # (Auto) 0.8 (0.8-4.8) 10^3/u L [place] # (Auto) 0.5 (0.2-0.9) 10^3/u L Eos # (Auto) 0.3 (0.0-0.8) 10^3/u L Baso # (Auto) 0.1 (0.0-0.1) 10^3/u L Nucleated RBC % (a uto) 0 % Nucleated RBCs # 0.0 /100WBC D-Dimer (0-0.59) ug/mIFE U Sodium 132 L (136-145) mmol/L Potassium 4.7 (3.5-5.1) mmol/L Chloride 94 L (98-107) mmol/L Carbon Dioxide 23 (22-29) mmol/L Anion Gap 19.7 H (5-19) BUN 28 H (8-23) mg/dL Creatinine 1.7 H (0.7-1.2) mg/dL GFR Calculation Not Reportable Glucose 116 H (65-115) mg/dL Calculated Osmolal ity 280 L (285-295) mOsm/k g Calcium 8.9 (8.5-10.5) mg/dL Total Bilirubin 0.5 (0.15-1.2) mg/dL AST 25 (0-40) U/L ALT 18 (0-41) U/L Alkaline Phosphata se 153 H (40-130) IU/L Troponin T Baselin e 63 H (0-15) ng/L NT-Pro-B Natriuret Pep 2867 H (0-450) pg/mL Total Protein 6.6 (6.6-8.7) g/dL Albumin 3.7 (3.5-5.2) g/dL Globulin 2.9 (1.3-4.6) g/dL SARS-CoV-2 Ag (Rap id) (Negative) 07/27/21 07/27/21 Range/Units 13:00 13:00 WBC (4.0-10.0) 10^3/ uL RBC (4.1-5.3) 10^6/u L Hgb (11.7-16.6) g/dL Hct (42.0-52.0) % MCV (80-94) fL MCH (28.0-34.0) pg MCHC (30.0-36.0) g/dL RDW (12.1-15.1) % Plt Count (130-400) 10^3/c mm MPV (7.4-10.4) fL Neut % (Auto) % Lymph % (Auto) % [place] % (Auto) % Eos % (Auto) % Baso % (Auto) % Neut # (Auto) (1.8-7.7) 10^3/u L Lymph # (Auto) (0.8-4.8) 10^3/u L [place] # (Auto) (0.2-0.9) 10^3/u L Eos # (Auto) (0.0-0.8) 10^3/u L Baso # (Auto) (0.0-0.1) 10^3/u L Nucleated RBC % (a uto) % Nucleated RBCs # /100WBC D-Dimer 3.06 H (0-0.59) ug/mIFE U Sodium (136-145) mmol/L Potassium (3.5-5.1) mmol/L Chloride (98-107) mmol/L Carbon Dioxide (22-29) mmol/L Anion Gap (5-19) BUN (8-23) mg/dL Creatinine (0.7-1.2) mg/dL GFR Calculation Glucose (65-115) mg/dL Calculated Osmolal ity (285-295) mOsm/k g Calcium (8.5-10.5) mg/dL Total Bilirubin (0.15-1.2) mg/dL AST (0-40) U/L ALT (0-41) U/L Alkaline Phosphata se (40-130) IU/L Troponin T Baselin e (0-15) ng/L NT-Pro-B Natriuret Pep (0-450) pg/mL Total Protein (6.6-8.7) g/dL Albumin (3.5-5.2) g/dL Globulin (1.3-4.6) g/dL SARS-CoV-2 Ag (Rap id) Negative (Negative) Imaging Data^: CXR: Attestation: I personally reviewed and interpreted this imaging study as follows: Radiologist's impression: IMPRESSION: The chest is unchanged compared to 10/31/2020 with no acute abnormality identified. CT Chest: Attestation: I personally reviewed and interpreted this imaging study as follows: Radiologist's impression: IMPRESSION: Significant four-chamber cardiac enlargement with evidence of poor right ventricular function. Likely this is due to poor left ventricular function. The pulmonary parenchymal findings are nonspecific and not the typical Covid infiltrative pattern. Groundglass density seen in this case can be seen with congestive heart failure. Acute pneumonitis even acute Covid pneumonitis is not excluded. EKG Data^: EKG 1: Attestation: I personally reviewed and interpreted this EKG as follows: EKG Interpretation Date: 11/04/20 EKG interpretation time: 11:44 Prior EKG tracings: not available for review Interpretation: Paced cardiac rhythm heart rate 65 abnormal EKG Discharge Plan Discharge Patient Disposition: Home Clinical Impression: Chronic dyspnea, Chronic atrial fibrillation, Cardiomyopathy, Status post cardiac pacemaker procedure, Nonischemic cardiomyopathy, Chronic congestive heart failure Condition: Stable Prescriptions: No Action pentoxifylline 400 mg tablet extended release 400 mg PO TID RF: 0 glipizide 10 mg tablet 20 mg PO BID RF: 0 metformin 850 mg tablet 850 mg PO TID RF: 0 Hold Instructions: Resume on 06/23/20. levothyroxine 100 mcg capsule 100 mcg PO QAM RF: 0 omeprazole 20 mg capsule,delayed release(DR/EC) 20 mg PO BID RF: 0 gabapentin 800 mg tablet 800 mg PO TID RF: 0 vitamin E (dl, acetate) 1,000 unit capsule 1,000 unit PO DAILY RF: 0 cinnamon bark [Cinnamon] 500 mg capsule 500 mg PO BID RF: 0 vitamin B complex Capsule 1 cap PO DAILY RF: 0 Eliquis 5 mg tablet 5 mg PO BID RF: 0 alogliptin 25 mg tablet 25 mg PO QAM RF: 0 atorvastatin 40 mg tablet 20 mg PO DAILY RF: 0 oxycodone-acetaminophen 7.5-325 mg tablet 1 tab PO TID PRN (Reason: pain) 30 Days Qty: 90 RF: 0 mupirocin 2 % ointment 1 applic topical BID Qty: 15 RF: 3 Fish Oil 1 cap PO BID RF: 0 Entresto 24-26 mg tablet 1 tab PO BID Qty: 60 RF: 0 potassium chloride [Klor-Con 10] 10 mEq tablet extended release 10 meq PO DAILY MDD see pharmacy comment Qty: 30 RF: 0 furosemide 20 mg tablet 60 mg PO DAILY Qty: 0 RF: 0 tamsulosin [Flomax] 0.4 mg capsule 0.4 mg PO DAILY Qty: 30 RF: 0 ciprofloxacin HCl [Cipro] 500 mg tablet 500 mg PO BID Qty: 14 RF: 0 diclofenac sodium 1 % gel 2 g topical QID PRN (Reason: Pain) RF: 0 Discharge Orders: Discharge ED (Routine); Ordered 11/04/20 Ordered By: Laron Musa Other Ambulatory Orders: CV. echo complete* [id number] (Routine) Timeframe: 3 Days Facility: [facility] - Location: Radiology Ordered By: Laron Musa DME: Oxygen (Order) Location: None Selected Ordered By: Laron Musa Referrals: Mary Lou Anaya MD [Primary Care Provider] - Discharge Diet: Low Salt Discharge Activity: Resume usual activity and Oxygen as instructed Patient Instructions: Opioid Safety Activity Restrictions/Additional Instructions: Continue all home medical care. You will be sent home with oxygen. Follow-up with Dr. Roque as instructed. You will be scheduled for an outpatient echocardiogram. Case management from the hospital will call you with appointment times. Coding Level of Care Code ED Bill Of Lading Clerk for Myles Fwd Exam Comprehensive
--- NOTE | 2020-11-04 12:52 | ECG_ITS ---
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 Measurements Intervals [place] Rate: 61 P: [place]: QRS: -84 QRSD: 205 T: 95 QT: 499 QTc: 506 Interpretive Statements ELECTRONIC VENTRICULAR PACEMAKER Compared to ECG 11/04/2020 11:44:08 No significant changes Electronically Signed On 11-04-2020 14:58:04 CDT by Danny Blas M.D. [email or web address] [email or web address]/store/[id number]
[2020-11-04 13:11] LABS: Basophils # 0.1 10^3/uL (0.0-0.1); Basophils % 0.8 %; Eosinophils # 0.3 10^3/uL (0.0-0.8); Eosinophils % 4.1 %; Hematocrit 31.9 % (42.0-52.0); Hemoglobin 10.2 g/dL (11.7-16.6); Lymphocytes # 0.8 10^3/uL (0.8-4.8); Lymphocytes % 10.6 %; Mean Corpuscular Hemoglobin 28.2 pg (28.0-34.0); Mean Corpuscular Volume 88.1 fL (80-94); Mean Platelet Volume 10.1 fL (7.4-10.4); Monocytes # 0.5 10^3/uL (0.2-0.9); Monocytes % 6.7 %; Neutrophils # 5.63 10^3/uL (1.8-7.7); Neutrophils % 77.5 %; Nucleated Red Blood Cells % 0 %; Platelet Count 268 10^3/cmm (130-400); Red Blood Count 3.62 10^6/uL (4.1-5.3); Red Cell Distribution Width 16.8 % (12.1-15.1); White Blood Count 7.3 10^3/uL (4.0-10.0)
[2020-11-04 13:31] LABS: SARS Covid-2 Antigen Negative (Negative)
[2020-11-04 13:32] LABS: D Dimer 3.06 ug/mIFEU (0-0.59)
[2020-11-04 13:37] LABS: Troponin(5th) Baseline 63 ng/L (0-15)
[2020-11-04 13:45] LABS: Alanine Aminotransferase 18 U/L (0-41); Albumin Level 3.7 g/dL (3.5-5.2); Alkaline Phosphatase 153 IU/L (40-130); Anion Gap 19.7 (5-19); Aspartate Amino Transferase 25 U/L (0-40); Blood Urea Nitrogen 28 mg/dL (8-23); Calcium 8.9 mg/dL (8.5-10.5); Carbon Dioxide 23 mmol/L (22-29); Chloride 94 mmol/L (98-107); Globulin 2.9 g/dL (1.3-4.6); Glucose 116 mg/dL (65-115); NT Pro B Type Natriuretic Pept 2867 pg/mL (0-450); Osmolality Calculated 280 mOsm/kg (285-295); Potassium 4.7 mmol/L (3.5-5.1); Sodium 132 mmol/L (136-145); Total Bilirubin 0.5 mg/dL (0.15-1.2); Total Protein 6.6 g/dL (6.6-8.7)
--- NOTE | 2020-11-04 13:56 | CT_ITS ---
WS: [id number] CT angio chest PE protcl [id number] REASON FOR EXAM: SOB with Elevated DDimer TECHNIQUE: Coronal and sagittal 2-D and MIP reformations. IV CONTRAST ADMINISTERED: Visipaque 320, 80 mL TOTAL EXAM DLP: 618.[address] scans at [facility] use at least one of these dose optimization techniques: automat ed exposure control; mA and/or kV adjustment per patient size (includes targeted exams where dose is matched to clinical indication); or iterative reconstruction. FINDINGS: Left-sided pacemaker in place. Significant four-chamber cardiac enlargement. Extensive calcification of the coronary arteries. The l eft ventricle did not fill with contrast during this examination and there was reflux of contrast fro m the right atrium into the hepatic veins, both indicating poor right ventricular function. No pulmonary emboli. Atherosclerotic aorta without aneurysmal dilatation. Minor hilar adenopathy. No significant mediastinal adenopathy or mass. No lung mass. Areas of subtle groundglass density, mostly centrally. No pleural effusion. CT/CT angio chest PE protcl [id number] IMPRESSION: Significant four-chamber cardiac enlargement with evidence of poor right ventri cular function. Likely this is due to poor left ventricular function. The pulmonary parenchymal findings are nonspecific and not the typical Covid in filtrative pattern. Groundglass density seen in this case can be seen with wilbert estive heart failure. Acute pneumonitis even acute Covid pneumonitis is not exc luded.
[2020-11-04] MEDS: sodium chloride 0.9% 500 ML IV (14:17)
[2020-11-04] MEDS: iodixanol 320 mg/mL 100mL Btl IV (14:56)
[2020-11-04 16:24] LABS: Troponin 5 2HR 57.91 ng/L (0-15)
[2020-11-04 16:26] LABS: Troponin 5 2HR Delta -5.09 ABS# (0-10)
[2020-11-04 16:56] VITALS: O2SAT 88; O2SAT 91; O2SAT 92
[2020-11-04 18:00] VITALS: PULSE 78; RESP 18; O2SAT 95
--- NOTE | 2020-11-05 10:33 | DCPLANNER ---
Addendum entered by Birgit Rodriguez 11/05/20 10:40: billing services manager also had message to schedule an outpatient echo cardiogram. Patient has [facility] insurance, telephonic nurse case manager cannot order an out patient echo due to [employer] insurance. billing services manager can refer patient to [facility] and they can order the test from the clinic. billing services manager did send patients information to July with [employer] [facility] so that they authorization process could be started. billing services manager called [facility], gave the referral. Information will be given to Jemima, patients information will be printed and reviewed. Clinic will call patient with appointment information. Original Note: billing services manager had message to arrange for home O2 for patient. Patient has [employer] insurance, telephonic nurse case manager emailed patients information to July with [facility] for the process could be started.
[2020-11-05 14:20] LABS: Coronavirus Test Green County Not Detected
--- NOTE | 2020-11-11 13:54 | DCPLANNER ---
Patient has a follow up appointment schedule for November at 3:[address] Roque. Clinic will call patient with appointment information.
--- NOTE | 2020-11-28 13:16 | DCPLANNER ---
Patient had a follow up appointment scheduled for 11.20.20 with [facility] - patient did attend appointment.
== END 2020-11-04 18:01 | disposition home or self-care (01) ==
PROVIDERS: Physician Assistant; Emergency Provider Emergency Medicine; PCP Family Medicine
DX: I11.0 Hypertensive heart disease with heart failure (principal); I50.43 Acute on chronic combined systolic (congestive) and diastolic (congestive) heart failure; I42.8 Other cardiomyopathies; I48.20 Chronic atrial fibrillation, unspecified; I25.10 Atherosclerotic heart disease of native coronary artery without angina pectoris; J44.9 Chronic obstructive pulmonary disease, unspecified; E11.9 Type 2 diabetes mellitus without complications; E78.5 Hyperlipidemia, unspecified; Z79.01 Long term (current) use of anticoagulants; Z79.84 Long term (current) use of oral hypoglycemic drugs
CPT/HCPCS: 71045; 71275; 80053; 83880; 84484; 85025; 85378; 87426; 87635; 93005; 96360; 99283; J7040; Q9967

== ENCOUNTER → 2020-11-05 14:04 | Outpatient (BNVA) | payer OTHER, SELFPAY | PROVIDERS: PCP Family Medicine; Visit Provider Anesthesiology Pain Medicine | DX: G89.29 Other chronic pain (principal); M25.551 Pain in right hip; M25.511 Pain in right shoulder; M79.605 Pain in left leg; G62.9 Polyneuropathy, unspecified; M19.019 Primary osteoarthritis, unspecified shoulder; M19.079 Primary osteoarthritis, unspecified ankle and foot; M19.021 Primary osteoarthritis, right elbow; M25.552 Pain in left hip; M54.5 Low back pain; I48.20 Chronic atrial fibrillation, unspecified; Z79.891 Long term (current) use of opiate analgesic | CPT/HCPCS: 99214 ==

== ENCOUNTER → 2020-11-12 14:36 | Outpatient (BNVA) | payer OTHER, SELFPAY | PROVIDERS: PCP Family Medicine; Visit Provider Urology | DX: R31.21 Asymptomatic microscopic hematuria; R34 Anuria and oliguria | CPT/HCPCS: 81003 ==

== ENCOUNTER 2020-11-20 16:34 | Inpatient (IN) | payer OTHER, MEDICARE, SELFPAY ==
[2020-11-20] VITALS (7 sets, daily range): BP systolic 122–146; BP diastolic 79–86; PULSE 60–88; RESP 12–22; TEMP 36.4–36.5; O2SAT 95–98; BMI 36.5
--- NOTE | 2020-11-20 17:27 | XRR_ITS ---
PROCEDURE INFORMATION: Exam: XR Chest Exam date and time: 11/20/2020 5:27 PM Age: 75 years old Clinical indication: Shortness of breath; Prior surgery; Additional info: Evalaute for fluid TECHNIQUE: Imaging protocol: XR of the chest. Views: 1 view. COMPARISON: CR XR chest 1V portable [id number] 11/04/2020 11:02 AM FINDINGS: Tubes, catheters and devices: Intact Single lead left subclavian pacemaker. Lungs: Mild interstitial prominence throughout both lungs. No focal consolidation. Pleural spaces: Unremarkable. No pleural effusion. No pneumothorax. Heart/Mediastinum: Mild cardiomegaly. Bones/joints: Degenerative changes of the right glenohumeral joint. XR/XR chest 1V portable [id number] IMPRESSION: 1. Interstitial prominence in both lungs could represent mild pulmonary edema.
--- NOTE | 2020-11-20 17:28 | ECG_ITS ---
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
[2020-11-20 18:10] LABS: Basophils # 0.1 10^3/uL (0.0-0.1); Eosinophils # 0.2 10^3/uL (0.0-0.8); Eosinophils % 3.3 %; Hemoglobin 11.1 g/dL (11.7-16.6); Lymphocytes % 16.2 %; Mean Corpuscular HGB Conc 30.8 g/dL (30.0-36.0); Mean Corpuscular Hemoglobin 28.4 pg (28.0-34.0); Mean Corpuscular Volume 92.1 fL (80-94); Mean Platelet Volume 11.2 fL (7.4-10.4); Monocytes # 0.4 10^3/uL (0.2-0.9); Monocytes % 6.6 %; Neutrophils # 4.39 10^3/uL (1.8-7.7); Neutrophils % 72.7 %; Nucleated Red Blood Cells % 0 %; Platelet Count 208 10^3/cmm (130-400); Red Blood Count 3.91 10^6/uL (4.1-5.3); Red Cell Distribution Width 18.5 % (12.1-15.1)
[2020-11-20 18:34] LABS: Partial Thromboplastin Time 40.4 SECONDS (23.9-36.7)
[2020-11-20 18:38] LABS: Troponin T (5th) Once 44 ng/L (0-15)
[2020-11-20 18:42] LABS: Alanine Aminotransferase 9 U/L (0-41); Alkaline Phosphatase 142 IU/L (40-130); Blood Urea Nitrogen 21 mg/dL (8-23); Calcium 8.8 mg/dL (8.5-10.5); Carbon Dioxide 23 mmol/L (22-29); Chloride 99 mmol/L (98-107); Globulin 3.1 g/dL (1.3-4.6); Glucose 103 mg/dL (65-115); Lipase 35 U/L (13-60); NT Pro B Type Natriuretic Pept 2039 pg/mL (0-450); Osmolality Calculated 283 mOsm/kg (285-295); Sodium 135 mmol/L (136-145); Total Bilirubin 0.8 mg/dL (0.15-1.2); Total Protein 7.1 g/dL (6.6-8.7)
--- NOTE | 2020-11-20 18:46 | W.ED.GENADLT ---
HPI - General Adult General: Chief complaint: Shortness of Breath/Dyspnea Stated complaint: bloating from poss fluid Time Seen by Provider: 11/20/20 17:53 History of Present Illness: HPI narrative: CC: Dyspnea, leg swelling, abdominal distension, fatigue HPI: This is a 75 yo patient w/ hx of CHF (EF of 35-40%) followed by Dr. Calle, CKD, afib presenting ot the ED with dyspnea and increased work of breathing x 2 weeksin the setting of increased weight gain/abdominal girth and lower extremity swelling. Patient was seen and and evaluated by Dr. Calle today and was go to the Ed. Endorses of orthopnea and increased pillow usage at night. At baseline, patient takes lasix 60mg BID compliantly. Reports decreased urination. Denies chest pain, N/V, diaphoresis, shoulder pain pain or back pain. Patient has no fever/chill, or sputum production. No GI or other complaints. Denies any pleuritic chest pain, recent surgery/immobilization/travel, or hematemesis or hx of VTE in the past. Onset: 2 weeks ago Duration: ongoing for the last 2 weeks Location: home Severity: moderate/severe Review of Systems Narrative: Constitutional: No fever, no chills. +fatigue HEENT: No vision changes CV: No chest pain, no palpitations PULM: No productive cough, +dyspnea GI: No abdominal pain, no N/V/D +abdominal distension. : No dysuria MSKEL: No muscle pain, +leg swelling b/l SKIN: No new rashes, no lesions. NEURO: No headache, no focal weakness. HEME: No visible bruises PSYCH: Normal mood PFSH ED PFSH: Medical History Abdominal pain Abnormal nuclear stress test Acute exacerbation of CHF (congestive heart failure) Acute on chronic diastolic (congestive) heart failure Acute on chronic systolic heart failure BRAIN (acute kidney injury) Anasarca Asymptomatic microscopic hematuria Atherosclerotic heart disease Bradycardia Patient has a longstanding history of atrial fibrillation and bradycardia. Chest pain CHF (congestive heart failure) Chronic atrial fibrillation Patient is on long-term oral anticoagulation. Eliquis held for possible LHC in 1-2 days. Chronic venous insufficiency Cirrhosis COPD (chronic obstructive pulmonary disease) Diabetes Diverticulosis Hyperlipidemia Hypertension Left upper quadrant pain FDC (current) use of opiate analgesic Non-healing ulcer Osteomyelitis Right toe status post debridement and bone biopsy, [facility] 2018 PAD (peripheral artery disease) Patient has two-vessel runoff on the left side and three-vessel runoff on the right side. He has mild to moderate diffuse peripheral arterial disease. Pain management contract signed Sleep apnea SOB (shortness of breath) Patient is known to have COPD Varicose veins of bilateral lower extremities with other complications Surgical History History of hip surgery Hx of toe surgery Hx of tonsillectomy Family History Father , at age 57 Cancer Mother , at age 91 Cancer breast Other CAD (coronary artery disease) Diabetes Denies family history of Clotting disorder Dementia Chronic kidney disease (CKD) Suicide Anesthesia complication Bleeding disorder Lung disease Stroke Social History Smoking and tobacco status: never smoked Alcohol intake: never Lives independently: Yes Household members: spouse Housing: House Marital status: Current occupational status: employed History of recent travel: No Physical Exam Narrative: EXAM NARRATIVE: Head: Atraumatic Eyes: PERRL, conjunctiva without injection ENT: Mucous membrane moist NECK: Supple without lymphadenopathy, mild JVD LUNGS: +diffuse crackles bilaterally. CV: RRR ABDOMEN: Soft, nontender in all quadrants, +distended/nontense abdomen EXTREMITY: Normal ROM, bilateral 3+ edema in the LE above the knees, no shireen?s sign SKIN:+Mild erythema over calfs bilaterally. NEURO: Awake and alert. No focal motor deficits. PSYCH: Normal mood and affect. Course Vital Signs: Vital signs: Vital Signs Temperature 97.6 F 11/20/20 17:20 Pulse Rate 61 11/20/20 19:00 Respiratory Rate 12 11/20/20 19:00 Blood Pressure 142/83 11/20/20 19:00 Pulse Oximetry 96 11/20/20 19:00 MDM - General Adult MDM Narrative: Medical decision making narrative: [75]yo pt w/ hx of CHF on lasix 60 mgBID presenting to the ED with dyspnea and and volume overload x 2 weeks despite lasix use. Physical exam consistent signs of fluid overload including crackles bilaterally and LE swelling. Workup today: ECG, CBC, BMP, Troponin, BNP, CXR. Intervention: IV lasix after potassium check Based on history, exam and findings, presentation most consistent with acute on chronic heart failure. Low suspicion for PNA, ACS, tamponade, aortic dissection. EKG: No STEMI and no evidence of Brugada?s sign, delta wave, epsilon wave, significantly prolonged QTc, or malignant arrhythmia. Troponin mildly elevated at 44 and BNP elevated at 2K consistent with baseline CXR: diffuse interstitial edema consistent with CHF exacerbation. [7:00pm] On reassessment, patient is stable and patient is mentating without issues. On NC 4L. Given lasix 100mg x 1 in the ER with significant symptom improvement in dyspnea. No signs of increased work of breathing requiring BIPAP. Given the current presentation, I believe the patient would benefit from inpatient admission for continued diuresis and fluid removal. I have discussed a plan with a patient who agrees with inpatient admission. Disposition: Admission Lab Data: Labs: Lab Results 11/20/20 11/20/20 11/20/20 Range/Units 17:44 17:44 17:44 WBC 6.0 (4.0-10.0) 10^3/ uL RBC 3.91 L (4.1-5.3) 10^6/u L Hgb 11.1 L (11.7-16.6) g/dL Hct 36.0 L (42.0-52.0) % MCV 92.1 (80-94) fL MCH 28.4 (28.0-34.0) pg MCHC 30.8 (30.0-36.0) g/dL RDW 18.5 H (12.1-15.1) % Plt Count 208 (130-400) 10^3/c mm MPV 11.2 H (7.4-10.4) fL Neut % (Auto) 72.7 % Lymph % (Auto) 16.2 % [place] % (Auto) 6.6 % Eos % (Auto) 3.3 % Baso % (Auto) 1.0 % Neut # (Auto) 4.39 (1.8-7.7) 10^3/u L Lymph # (Auto) 1.0 (0.8-4.8) 10^3/u L [place] # (Auto) 0.4 (0.2-0.9) 10^3/u L Eos # (Auto) 0.2 (0.0-0.8) 10^3/u L Baso # (Auto) 0.1 (0.0-0.1) 10^3/u L Nucleated RBC % (a uto) 0 % Nucleated RBCs # 0.0 /100WBC PT 17.60 H (12.1-14.9) SECO NDS INR 1.40 H (0.8-1.2) APTT 40.4 H (23.9-36.7) SECO NDS Sodium 135 L (136-145) mmol/L Potassium 4.6 (3.5-5.1) mmol/L Chloride 99 (98-107) mmol/L Carbon Dioxide 23 (22-29) mmol/L Anion Gap 17.6 (5-19) BUN 21 (8-23) mg/dL Creatinine 1.8 H (0.7-1.2) mg/dL GFR Calculation Not Reportable Glucose 103 (65-115) mg/dL Calculated Osmolal ity 283 L (285-295) mOsm/k g Calcium 8.8 (8.5-10.5) mg/dL Total Bilirubin 0.8 (0.15-1.2) mg/dL AST 25 (0-40) U/L ALT 9 (0-41) U/L Alkaline Phosphata se 142 H (40-130) IU/L Troponin T Gen 5 n g/L (0-15) ng/L NT-Pro-B Natriuret Pep 2039 H (0-450) pg/mL Total Protein 7.1 (6.6-8.7) g/dL Albumin 4.0 (3.5-5.2) g/dL Globulin 3.1 (1.3-4.6) g/dL Lipase 35 (13-60) U/L 11/20/20 Range/Units 17:44 WBC (4.0-10.0) 10^3/ uL RBC (4.1-5.3) 10^6/u L Hgb (11.7-16.6) g/dL Hct (42.0-52.0) % MCV (80-94) fL MCH (28.0-34.0) pg MCHC (30.0-36.0) g/dL RDW (12.1-15.1) % Plt Count (130-400) 10^3/c mm MPV (7.4-10.4) fL Neut % (Auto) % Lymph % (Auto) % [place] % (Auto) % Eos % (Auto) % Baso % (Auto) % Neut # (Auto) (1.8-7.7) 10^3/u L Lymph # (Auto) (0.8-4.8) 10^3/u L [place] # (Auto) (0.2-0.9) 10^3/u L Eos # (Auto) (0.0-0.8) 10^3/u L Baso # (Auto) (0.0-0.1) 10^3/u L Nucleated RBC % (a uto) % Nucleated RBCs # /100WBC PT (12.1-14.9) SECO NDS INR (0.8-1.2) APTT (23.9-36.7) SECO NDS Sodium (136-145) mmol/L Potassium (3.5-5.1) mmol/L Chloride (98-107) mmol/L Carbon Dioxide (22-29) mmol/L Anion Gap (5-19) BUN (8-23) mg/dL Creatinine (0.7-1.2) mg/dL GFR Calculation Glucose (65-115) mg/dL Calculated Osmolal ity (285-295) mOsm/k g Calcium (8.5-10.5) mg/dL Total Bilirubin (0.15-1.2) mg/dL AST (0-40) U/L ALT (0-41) U/L Alkaline Phosphata se (40-130) IU/L Troponin T Gen 5 n g/L 44 H (0-15) ng/L NT-Pro-B Natriuret Pep (0-450) pg/mL Total Protein (6.6-8.7) g/dL Albumin (3.5-5.2) g/dL Globulin (1.3-4.6) g/dL Lipase (13-60) U/L Discharge Plan Discharge Patient Disposition: Admitted As Inpatient Clinical Impression: Acute exacerbation of CHF (congestive heart failure), Anasarca, Volume overload Condition: Stable Coding Level of Care Code 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
[2020-11-20] MEDS: FUROsemide 10 mg/mL SDV 10mL 100 MG IVP (18:52)
[2020-11-20 18:58] LABS: Anion Gap 17.6 (5-19); Aspartate Amino Transferase 25 U/L (0-40); Potassium 4.6 mmol/L (3.5-5.1)
[2020-11-20 19:57] LABS: Add Urine Microscopic? YES; Bilirubin Urine Neg (Negative); Blood Urine 3+ (Negative); Glucose Urine UA Norm (Normal); Ketones Urine Negative (Negative); Leukocyte Esterase Urine Negative (Negative); Nitrate Urine Negative (Negative); Protein Urine Neg (Negative); Sulfosalicylic Acid Urine Negative (Negative); Urine Appearance Clear (CLEAR); Urine Color Yellow (Yellow); Urobilinogen Urine Neg (Negative); pH Urine 8 (5-7)
[2020-11-20 20:08] LABS: Squamous Epithelial Cell Urine 0-4 /hpf (0-5)
[2020-11-20 20:09] LABS: Add Urine Culture? Yes
[2020-11-21] VITALS (10 sets, daily range): BP systolic 118–138; BP diastolic 77–85; PULSE 60–77; RESP 14–20; TEMP 36.1–36.9; O2SAT 92–99
--- NOTE | 2020-11-21 00:08 | P.HP_ITS ---
Providers/Chief Complaint Admitting Physician: Shani Galloway MD Primary Care Provider: Mary Lou Anaya MD Chief Complaint: bloating from poss fluid History of Present Illness Refugio Amanda is a 75 year old male known to have nonischemic cardiomyopathy, chronic atrial fibrillation, pacemaker in place, atherosclerotic heart disease and peripheral artery disease. He complains of increasing shortness of breath, new 02 requirement 2lpm, increasing LE edema, BECKI boot on LLE r/t weeping ulcer, and increasing abdominal girth over the past 2 weeks. He has been taking the Lasix 80 mg p.o. twice daily at home without any change in his condition. He followed up with Dr. Roque today as an outpatient and was referred into the ER due to shortness of breath, decompensated CHF and need for IV diuresis. Review of Systems General: Reports: 10 or more systems reviewed and unremarkable except in HPI and below Const: Denies: fever(s), chills or body aches Eyes: Denies: change in vision, blurry vision or photophobia ENMT: Reports: hoarseness; Denies: throat pain, enlarged tonsils, odynophagia or nasal congestion Card: Denies: chest pain, palpitations, irregular heart rhythm, edema, swelling of feet/ankles, lightheadedness, pre-syncope, dyspnea on exertion or orthopnea Resp: Reports: dyspnea; Denies: productive cough, non-productive cough, wheezing, stridor, pain on inspiration, change in phlegm color, hemoptysis or chest congestion GI: Denies: abdominal pain, nausea, vomiting, hematemesis, coffee ground emesis, dysphagia, heartburn, diarrhea, constipation, GI cramping, change in stool character, hematochezia or melena : Denies: flank pain, dysuria, urinary frequency, urinary urgency, urinary hesitancy or hematuria Musc: Denies: neck pain, back pain, extremity pain, joint swelling, joint warmth or deformity Neuro: Denies: headache(s), numbness in extremities, weakness in extremities, sensory changes, difficulty walking, frequent falls, dizziness, vertigo, behavioral changes, Slurred speech present or seizure-like activity Psych: Denies: anxiety, depression, suicidal ideation or homicidal ideation Endo: Denies: polyuria, polydipsia, tired all the time, cold intolerance or hot flashes Jose Miguel/Lymph: Denies: easy bruising or easy bleeding Medications/Allergies Home Medications Medication Instructions Recorded Confirmed Last Taken Type apixaban 5 mg tablet 5 mg PO BID 04/09/19 11/20/20 11/20/20 History cinnamon bark 500 mg capsule 500 mg PO BID cap 04/09/19 11/20/20 11/20/20 Hist ory gabapentin 800 mg tablet 800 mg PO TID 04/09/19 11/20/20 11/20/20 History glipizide 10 mg tablet 20 mg PO BID 04/09/19 11/20/20 11/20/20 History levothyroxine 100 mcg capsule 100 mcg PO DAILY cap 04/09/19 11/20/20 11/04/20 History metformin 850 mg tablet 850 mg PO TID 04/09/19 11/20/20 11/20/20 History omeprazole 20 mg capsule,delayed 20 mg PO BID 04/09/19 11/20/20 11/20/20 History release vitamin B complex 1 cap PO DAILY cap 04/09/19 11/20/20 11/20/20 History vitamin E (dl, acetate) 450 mg 1,000 unit PO DAILY cap 04/09/19 11/20/20 11/20/20 History (1,000 unit) capsule pentoxifylline 400 mg 400 mg PO TID 04/12/19 11/20/20 11/20/20 History tablet,extended release alogliptin 25 mg tablet 25 mg PO DAILY 11/29/19 11/20/20 11/20/20 History Fish Oil 1 cap PO BID 06/03/20 11/20/20 11/20/20 History Entresto 1 tab PO BID #60 tab 06/13/20 11/20/20 11/20/20 Rx furosemide 60 mg PO DAILY #0 tab 06/13/20 11/20/20 11/20/20 Rx potassium chloride [Klor-Con 10] 10 meq PO DAILY #30 tab MDD see 06/13/20 11/20/20 06/19/20 08:00 Rx pharmacy comment atorvastatin 40 mg tablet 20 mg PO DAILY 08/27/20 11/20/20 11/20/20 History tamsulosin [Flomax] 0.4 mg PO DAILY #30 cap 10/31/20 11/20/20 11/20/20 Rx oxycodone-acetaminophen 1 tab PO TID PRN 11/20/20 11/20/20 Unknown History Allergies Allergy/AdvReac Type Severity Reaction Status Date / Time lisinopril Allergy Unknown Verified 11/20/20 09:35 PFSH Acute PFSH: Medical History Abdominal pain Abnormal nuclear stress test Acute exacerbation of CHF (congestive heart failure) Acute on chronic diastolic (congestive) heart failure Acute on chronic systolic heart failure BRAIN (acute kidney injury) Anasarca Asymptomatic microscopic hematuria Atherosclerotic heart disease Bradycardia Patient has a longstanding history of atrial fibrillation and bradycardia. Chest pain CHF (congestive heart failure) Chronic atrial fibrillation Patient is on long-term oral anticoagulation. Eliquis held for possible LHC in 1-2 days. 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 He has mild to moderate diffuse peripheral arterial disease. Pain management contract signed Sleep apnea SOB (shortness of breath) Patient is known to have COPD Varicose veins of bilateral lower extremities with other complications Surgical History History of hip surgery Hx of toe surgery Hx of tonsillectomy Family History Father , at age 57 Cancer Mother , at age 91 Cancer breast Other CAD (coronary artery disease) Diabetes Denies family history of Clotting disorder Dementia Chronic kidney disease (CKD) Suicide Anesthesia complication Bleeding disorder Lung disease Stroke Social History Smoking and tobacco status: never smoked Alcohol intake: never Lives independently: Yes Household members: spouse Housing: House Marital status: Current occupational status: employed History of recent travel: No Vitals/I&O/Wt Last Vital Signs Temp 97.7 F 11/20/20 23:40 Pulse 60 11/20/20 23:40 Resp 18 08/12/21 23:40 BP 146/82 11/20/20 23:40 Pulse Ox 98 11/20/20 23:40 Weight last 48 hrs Weight 125.645 kg Physical Exam Narrative: EXAM NARRATIVE: General: No acute distress, AO x3 HEENT: PERRLA, pupils bilaterally equal and reactive, pallors not present Chest: Normal vesicular breath sounds, no added sounds, equal good air entry bilaterally CVS: S1-S2 regular, no murmurs, no tachycardia, no gallops, no rubs Abdomen: Soft, distended, nontender, bowel sounds present Neuro: No focal deficits, no facial deformity, AO x3, power 5/5 in all limbs Extremities: Right lower extremity edema, left lower extremity and Unna boot recently placed with podiatry, not open for exam today. Data : 11/20/20 17:44 11/20/20 17:44 Attestation for Other Data: I personally reviewed and interpreted the following: Other data: Laboratory Results WBC 6.0 10^3/uL (4.0-10.0) 11/20/20 17:44 RBC 3.91 10^6/uL (4.1-5.3) L 11/20/20 17:44 Hgb 11.1 g/dL (11.7-16.6) L 11/20/20 17:44 Hct 36.0 % (42.0-52.0) L 11/20/20 17:44 MCV 92.1 fL (80-94) 11/20/20 17:44 MCH 28.4 pg (28.0-34.0) 11/20/20 17:44 MCHC 30.8 g/dL (30.0-36.0) 11/20/20 17:44 RDW 18.5 % (12.1-15.1) H 11/20/20 17:44 Plt Count 208 10^3/cmm (130-400) 11/20/20 17:44 MPV 11.2 fL (7.4-10.4) H 11/20/20 17:44 Neut % (Auto) 72.7 % 11/20/20 17:44 Lymph % (Auto) 16.2 % 11/20/20 17:44 [place] % (Auto) 6.6 % 11/20/20 17:44 Eos % (Auto) 3.3 % 11/20/20 17:44 Baso % (Auto) 1.0 % 11/20/20 17:44 Neut # (Auto) 4.39 10^3/uL (1.8-7.7) 11/20/20 17:44 Lymph # (Auto) 1.0 10^3/uL (0.8-4.8) 11/20/20 17:44 [place] # (Auto) 0.4 10^3/uL (0.2-0.9) 11/20/20 17:44 Eos # (Auto) 0.2 10^3/uL (0.0-0.8) 11/20/20 17:44 Baso # (Auto) 0.1 10^3/uL (0.0-0.1) 11/20/20 17:44 Nucleated RBC % (auto) 0 % 11/20/20 17:44 Nucleated RBCs # 0.0 /100WBC 11/20/20 17:44 PT 17.60 SECONDS (12.1-14.9) H 11/20/20 17:44 INR 1.40 (0.8-1.2) H 11/20/20 17:44 APTT 40.4 SECONDS (23.9-36.7) H 11/20/20 17:44 Sodium 135 mmol/L (136-145) L 11/20/20 17:44 Potassium 4.6 mmol/L (3.5-5.1) 11/20/20 17:44 Chloride 99 mmol/L (98-107) 11/20/20 17:44 Carbon Dioxide 23 mmol/L (22-29) 11/20/20 17:44 Anion Gap 17.6 (5-19) 11/20/20 17:44 BUN 21 mg/dL (8-23) 11/20/20 17:44 Creatinine 1.8 mg/dL (0.7-1.2) H 11/20/20 17:44 GFR Calculation Not Reportable 11/20/20 17:44 Glucose 103 mg/dL (65-115) 11/20/20 17:44 Calculated Osmolality 283 mOsm/kg (285-295) L 11/20/20 17:44 Calcium 8.8 mg/dL (8.5-10.5) 11/20/20 17:44 Total Bilirubin 0.8 mg/dL (0.15-1.2) 11/20/20 17:44 AST 25 U/L (0-40) 11/20/20 17:44 ALT 9 U/L (0-41) 11/20/20 17:44 Alkaline Phosphatase 142 IU/L (40-130) H 11/20/20 17:44 Troponin T Gen 5 ng/L 44 ng/L (0-15) H 11/20/20 17:44 NT-Pro-B Natriuret Pep 2039 pg/mL (0-450) H 11/20/20 17:44 Total Protein 7.1 g/dL (6.6-8.7) 11/20/20 17:44 Albumin 4.0 g/dL (3.5-5.2) 11/20/20 17:44 Globulin 3.1 g/dL (1.3-4.6) 11/20/20 17:44 Lipase 35 U/L (13-60) 11/20/20 17:44 Urine Color Yellow (Yellow) 11/20/20 19:42 Urine Appearance Clear (CLEAR) 11/20/20 19:42 Urine pH 8 (5-7) H 11/20/20 19:42 Ur Specific [place] 1.010 (1.005-1.030) 11/20/20 19:42 Urine Protein Neg (Negative) 11/20/20 19:42 Urine Glucose (UA) Norm (Normal) 11/20/20 19:42 Urine Ketones Negative (Negative) 11/20/20 19:42 Urine Blood 3+ (Negative) H 11/20/20 19:42 Urine Nitrate Negative (Negative) 11/20/20 19:42 Urine Bilirubin Neg (Negative) 11/20/20 19:42 Prot Sulfosalicylic Acd Negative (Negative) 11/20/20 19:42 Urine Urobilinogen Neg mg/dL (Negative) 11/20/20 19:42 Ur Leukocyte Esterase Negative (Negative) 11/20/20 19:42 Urine RBC 5-10 /hpf (0-2) H 11/20/20 19:42 Urine WBC 10-15 /hpf (0-5) H 11/20/20 19:42 Ur Squamous Epith Cells 0-4 /hpf (0-5) H 11/20/20 19:42 Amorphous Sediment Not Reportable 11/20/20 19:42 Urine Bacteria None /hpf (NONE) 11/20/20 19:42 Impressions Chest X-Ray 11/20/20 17:27 IMPRESSION: 1. Interstitial prominence in both lungs could represent mild pulmonary edema. 05/2020: Echocardiogram Mildly dilated LV cavity. Diffuse hypokinesia of the left ventricle. The septum is thinned out and was found to have severe diffuse hypokinesia. Ejection fraction around 35 to 40%. Dilated right ventricle with moderately diminished ejection fraction Moderate biatrial enlargementThickened mitral valve. Moderate eccentric mitral regurgitation with mild prolapse of the anterior mitral leaflet. A&P Assessment and plan (1) Acute exacerbation of CHF (congestive heart failure): Status: Acute Qualifiers: Heart failure type: systolic Qualified Code(s): I50.23 - Acute on chronic systolic (congestive) heart failure (2) Anasarca: Status: Acute (3) BRAIN (acute kidney injury): Status: Acute Additional A&P Information Acute on chronic exacerbation of systolic CHF. Lasix 80 mg IV every 12 hours Closely monitor urine output, serum creatinine Patient also with recently creeping up creatinine up to 1.7-1.8. Will need to closely monitor with IV diuresis. Continue Entresto for now, will need to discuss with cardiology regarding continuing if creatinine continues to trend up. Continue other home medications including Eliquis 5 mg twice daily, gabapentin, levothyroxine and pentoxifylline. 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
[2020-11-21 05:33] LABS: Basophils % 0.8 %; Eosinophils # 0.2 10^3/uL (0.0-0.8); Eosinophils % 3.9 %; Hematocrit 33.4 % (42.0-52.0); Hemoglobin 10.4 g/dL (11.7-16.6); Lymphocytes % 19.5 %; Mean Corpuscular HGB Conc 31.1 g/dL (30.0-36.0); Mean Platelet Volume 10.8 fL (7.4-10.4); Monocytes # 0.5 10^3/uL (0.2-0.9); Monocytes % 8.9 %; Neutrophils # 3.47 10^3/uL (1.8-7.7); Neutrophils % 66.7 %; Nucleated Red Blood Cells % 0 %; Platelet Count 211 10^3/cmm (130-400); Red Blood Count 3.71 10^6/uL (4.1-5.3); Red Cell Distribution Width 18.3 % (12.1-15.1); White Blood Count 5.2 10^3/uL (4.0-10.0)
[2020-11-21] MEDS: FUROsemide 10 mg/mL SDV 10mL 80 MG IVP ×2 (05:36→17:19)
[2020-11-21 06:07] LABS: Alanine Aminotransferase 8 U/L (0-41); Albumin Level 3.6 g/dL (3.5-5.2); Alkaline Phosphatase 131 IU/L (40-130); Anion Gap 14.9 (5-19); Aspartate Amino Transferase 21 U/L (0-40); Blood Urea Nitrogen 22 mg/dL (8-23); Calcium 8.5 mg/dL (8.5-10.5); Carbon Dioxide 27 mmol/L (22-29); Chloride 100 mmol/L (98-107); Globulin 3.3 g/dL (1.3-4.6); Glucose 119 mg/dL (65-115); Osmolality Calculated 290 mOsm/kg (285-295); Potassium 3.9 mmol/L (3.5-5.1); Sodium 138 mmol/L (136-145); Total Bilirubin 0.9 mg/dL (0.15-1.2); Total Protein 6.9 g/dL (6.6-8.7)
[2020-11-21 06:45] LABS: Glucose Point of Care 113 mg/dL (70-110)
[2020-11-21] MEDS: apixaban 5 mg Tablet 2.5 MG PO ×2 (08:25→17:19)
[2020-11-21] MEDS: tamsulosin 0.4 mg Capsule PO (08:25)
[2020-11-21] MEDS: potassium chloride ER 10 mEq Tablet PO (08:25)
[2020-11-21] MEDS: atorvastatin 40 mg Tablet 20 MG PO (08:26)
[2020-11-21] MEDS: pantoprazole DR 40 mg Tablet PO ×2 (08:26→17:18)
[2020-11-21] MEDS: levothyroxine 100 mcg Tablet PO (08:26)
[2020-11-21 10:38] LABS: Glucose Point of Care 187 mg/dL (70-110)
--- NOTE | 2020-11-21 10:53 | PC.CHAP ---
Pastoral Care Encounter/Spiritual Assessment Type of Contact [] Declined packer dried beef visit [] Patient/Family/Request visit [] Outpatient visit [] Follow-up visit [] Physician referral [] Code/Alert [] Routine visit [] Staff referral [] Actively dying [] Patient sleeping [] Family support [] [] Out of room [] Palliative care [] [] Receiving care in room [] Pre-surgical visit [] Trauma [] Long length of stay [] ICU visit [xx] Other: Isolation Relational/Emotional Strength [] Patient feels connected with others/family/visitors/staff [] Distress [] Loneliness/isolation [] Abandonment Spirituality of Patient [] Person of Isabel [] Attends Gnosticist of their Isabel [] Believes in Prayer [] Reads Bible or Yarsanism materials [] There are Spiritual issues to be addressed Academic Program Specialist Interventions [] Prayer [] Active listening [] Non-anxious presence [] Spiritual/emotional support [] Crisis/trauma care [] Spiritual counseling [] Bereavement support [] Provided bereavement packet [] Provided Bible/devotional materials [] Provided toy/stuffed animal, coloring book to patient or family member [] Provided Communion [] Anointing/[place] [] Salvation [] Completed spiritual assessment [] Other: Impact on Illness or Injury [] Angry [] Fearful [] Anxious [] Often cries [] Exhaustion [] Unable to work [] Unable to attend mormon [] Unable to walk/stand [] Unable to read [] Unable to drive [] Unable to eat/drink [] Unable to sleep [] Unable to be with family [] Patient intubated [] Other: Summary Time spent with patient
[2020-11-21] MEDS: sacubitril/valsartan 24-26 mg Tablet 1 EACH PO ×2 (11:10→17:18)
--- NOTE | 2020-11-21 13:58 | PC.NURSE ---
Dr. Shaver called this nurse at this time. New orders received to remove Unnaboot x1. Do not cut off but unwrap. Place Mupiricin on big toes BID and cover with bandage.
[2020-11-21 17:06] LABS: Glucose Point of Care 106 mg/dL (70-110)
[2020-11-21] MEDS: mupirocin oint 22 gm 1 APPLIC TOPICAL (17:19)
[2020-11-21 17:58] LABS: D Dimer 3.17 ug/mIFEU (0-0.59)
--- NOTE | 2020-11-21 18:30 | P.PN_ITS ---
Subjective Subjective: Interval history: Patient was seen and examined this morning patient is stating that he uses BiPAP at night and uses 2 L of oxygen in the morning No active chest pain or shortness of breath Vitals/I&O/Wt Last Vital Signs Temp 98.4 F 11/21/20 16:00 Pulse 60 11/21/20 16:00 Resp 16 11/21/20 16:00 BP 125/79 11/21/20 16:00 Pulse Ox 99 11/21/20 16:00 11/21/20 11/21/20 11/21/20 06:59 14:59 22:59 Intake Total 240 / 240 Output Total 1175 / 1175 1300 / 1300 Balance -1175 / -1175 -1060 / -1060 Weight last 48 hrs Weight 95.254 kg Weight 125.645 kg Physical Exam Narrative: EXAM NARRATIVE: Generalized anasarca appearance, semi-Spears position saturating well on 2 L nasal cannula No active chest pain S1, S2 with episode of consider heart failure Bilateral lower extremity 3+ pitting edema Generalized body anasarca Bilateral diminished breath sounds with crackles Abdomen soft, distended with obesity EOMI, PERRLA GCS 15 very pleasant and cooperative during my evaluation Appears stated age Data : 11/21/20 04:52 11/21/20 04:52 A&P Assessment and plan (1) BRAIN (acute kidney injury): Status: Acute (2) Acute exacerbation of CHF (congestive heart failure): Status: Acute Qualifiers: Heart failure type: systolic Qualified Code(s): I50.23 - Acute on chronic systolic (congestive) heart failure (3) Anasarca: Status: Acute (4) Volume overload: Status: Acute (5) Decreased urine output: Status: Acute (6) Venous ulcer of left leg: Status: Acute (7) Chronic ulcer of left foot with fat layer exposed: Status: Acute (8) Peripheral arterial disease: Status: Acute (9) Diabetic peripheral neuropathy associated with type 2 diabetes mellitus: Status: Acute (10) Chronic atrial fibrillation: Status: Acute Additional A&P Information Acute on chronic systolic congestive heart failure exacerbation Clinical signs of fluid overload pulmonary edema noted on chest x-ray, Patient is getting Lasix 80 mg IV every 12 Monitor urine output and correlate with creatinine Creatinine is not worsening at this point Continue Nereida discussed with Dr. Roque in case of worsening creatinine we will hold Entresto For now I will change Eliquis dose No active signs of chest pain We will request echo, most likely this is related to his underlying sleep apnea Would request BiPAP overnight Chronic hypoxic restaurant failure without acute worsening Currently saturating well on 2 L nasal cannula, BiPAP overnight Venous stasis ulcer of legs Left leg cellulitis Compression stockings with Unna boot Would recommend doxycycline Has history of peripheral arterial disease and diabetic peripheral neuropathy as well History of chronic A. fib status post pacemaker placement Rate control, continue anticoagulation Paced rhythm Full code Cardiac diet DVT prophylaxis not indicated because of Eliquis use Attestations Medical Necessity Statement*: Continue diuresis for CHF exacerbation Time Spent in Patient Care: 16 - 35 minutes Coding Level of Care Code Acute Horticulturalist for Chg Fwd Diagnoses BRAIN (acute kidney injury) N17.9 Acute exacerbation of CHF (congestive heart failure) I50.23 Heart failure type: systolic Anasarca R60.1 Volume overload E87.70 Decreased urine output R34 Venous ulcer of left leg I83.029; L97.929 Chronic ulcer of left foot with fat layer exposed L97.522 Peripheral arterial disease I73.9 Diabetic peripheral neuropathy associated with type 2 diabetes mellitus E11.42 Chronic atrial fibrillation I48.20
[2020-11-21 21:14] LABS: Glucose Point of Care 130 mg/dL (70-110)
[2020-11-22] VITALS (13 sets, daily range): BP systolic 90–144; BP diastolic 54–90; PULSE 59–82; RESP 17–23; TEMP 36.3–36.7; O2SAT 92–100
[2020-11-22 06:38] LABS: Basophils # 0.1 10^3/uL (0.0-0.1); Basophils % 1.2 %; Eosinophils # 0.3 10^3/uL (0.0-0.8); Hematocrit 30.2 % (42.0-52.0); Hemoglobin 9.6 g/dL (11.7-16.6); Lymphocytes # 0.8 10^3/uL (0.8-4.8); Lymphocytes % 19.5 %; Mean Corpuscular HGB Conc 31.8 g/dL (30.0-36.0); Mean Corpuscular Hemoglobin 28.2 pg (28.0-34.0); Mean Corpuscular Volume 88.6 fl (80-94); Mean Platelet Volume 10.3 fL (7.4-10.4); Monocytes # 0.4 10^3/uL (0.2-0.9); Monocytes % 8.7 %; Neutrophils # 2.68 10^3/uL (1.8-7.7); Neutrophils % 64.4 %; Nucleated Red Blood Cells % 0 %; Platelet Count 203 10^3/cmm (130-400); Red Blood Count 3.41 10^6/uL (4.1-5.3); Red Cell Distribution Width 18.2 % (12.1-15.1); White Blood Count 4.2 10^3/uL (4.0-10.0)
[2020-11-22 07:06] LABS: Glucose Point of Care 131 mg/dL (70-110)
[2020-11-22] MEDS: FUROsemide 10 mg/mL SDV 10mL 80 MG IVP ×2 (07:09→17:22)
[2020-11-22 07:47] LABS: Anion Gap 15.5 (5-19); Blood Urea Nitrogen 22 mg/dL (8-23); Calcium 8.6 mg/dL (8.5-10.5); Carbon Dioxide 28 mmol/L (22-29); Chloride 97 mmol/L (98-107); Glucose 124 mg/dL (65-115); Osmolality Calculated 289 mOsm/kg (285-295); Potassium 3.5 mmol/L (3.5-5.1); Sodium 137 mmol/L (136-145); Thyroid Stimulating Hormone 4.34 uIU/mL (0.27-4.20)
[2020-11-22] MEDS: apixaban 5 mg Tablet 2.5 MG PO (08:18)
[2020-11-22] MEDS: atorvastatin 40 mg Tablet 20 MG PO (08:18)
[2020-11-22] MEDS: mupirocin oint 22 gm 1 APPLIC TOPICAL ×2 (08:19→17:22)
[2020-11-22] MEDS: tamsulosin 0.4 mg Capsule PO (08:19)
[2020-11-22] MEDS: sacubitril/valsartan 24-26 mg Tablet 1 EACH PO ×2 (08:19→17:22)
[2020-11-22] MEDS: pantoprazole DR 40 mg Tablet PO ×2 (08:19→17:22)
[2020-11-22] MEDS: potassium chloride ER 10 mEq Tablet PO (08:19)
[2020-11-22] MEDS: levothyroxine 100 mcg Tablet PO (08:19)
--- NOTE | 2020-11-22 11:31 | P.PN_ITS ---
Subjective Subjective: Interval history: No overnight events, adequate diuresis, 4 L output with negative balance of 3.7 L continue IV regimen Patient is feeling better, endorsing improvement in abdominal distention He uses BiPAP overnight, afebrile During my evaluation 2 L nasal cannula Requested venous Dopplers and perfusion scan secondary to high D-dimer echo pending Pacemaker interrogation Vitals/I&O/Wt Last Vital Signs Temp 97.9 F 11/22/20 08:00 Pulse 78 11/22/20 08:16 Resp 18 11/22/20 08:00 BP 133/87 11/22/20 08:00 Pulse Ox 97 11/22/20 08:16 11/21/20 11/22/20 11/22/20 22:59 06:59 14:59 Intake Total 240 / 240 360 / 360 Output Total 2100 / 2100 1400 / 3500 800 / 800 Balance -1860 / -1860 -1400 / -3260 -440 / -440 Weight last 48 hrs Weight 95.254 kg Weight 125.645 kg Physical Exam Narrative: EXAM NARRATIVE: elderly male Saturating well on 2 L nasal cannula BiPAP at the bedside Patient is feeling better No cyanosis or gangrene of lower extremities Bilateral pitting edema, Generalized anasarca S1, S2 Congestive heart failure signs Bilateral breath sounds with crackles diffuse Awake alert oriented x3 GCS 15 Left lower extremity cellulitis, venous stasis dermatitis Data : 11/22/20 06:01 11/22/20 06:01 A&P Assessment and plan (1) BRAIN (acute kidney injury): Status: Acute (2) Acute exacerbation of CHF (congestive heart failure): Status: Acute Qualifiers: Heart failure type: systolic Qualified Code(s): I50.23 - Acute on chronic systolic (congestive) heart failure (3) Anasarca: Status: Acute (4) Volume overload: Status: Acute (5) Decreased urine output: Status: Acute (6) Venous ulcer of left leg: Status: Acute (7) Chronic ulcer of left foot with fat layer exposed: Status: Acute (8) Peripheral arterial disease: Status: Acute (9) Diabetic peripheral neuropathy associated with type 2 diabetes mellitus: Status: Acute (10) Status post cardiac pacemaker procedure: Status: Acute (11) Cardiomyopathy: Status: Acute Additional A&P Information Acute on chronic nonischemic cardiomyopathy systolic congestive heart exacerbation This seems secondary to underlying sleep apnea Currently showing progress with IV diuretics 80 mg of Lasix Impressive urine output Creatinine improving Continue Entresto Pacemaker evaluation, requested venous Dopplers and VQ scan secondary to high D- dimer however he has had multiple investigations of similar nature due to his persistent high D-dimer no history of cancer Acute kidney injury secondary to prerenal cardiorenal etiology Improving with diuresis Chronic hypoxic restaurant failure without acute exacerbation currently saturating well on 2 L nasal cannula and BiPAP to be used at night Venous stasis dermatitis with left leg cellulitis continue doxycycline A. fib status post pacemaker placement: Interrogation requested Full code Cardiac diet DVT prophylaxis Eliquis Attestations Medical Necessity Statement*: Anticipating discharge tomorrow if creatinine seems to be improving, and Covid PCR negative Time Spent in Patient Care: less than 15 minutes Coding Level of Care Code Acute Protective Service Specialist for Chg Fwd Diagnoses BRAIN (acute kidney injury) N17.9 Acute exacerbation of CHF (congestive heart failure) I50.23 Heart failure type: systolic Anasarca R60.1 Volume overload E87.70 Decreased urine output R34 Venous ulcer of left leg I83.029; L97.929 Chronic ulcer of left foot with fat layer exposed L97.522 Peripheral arterial disease I73.9 Diabetic peripheral neuropathy associated with type 2 diabetes mellitus E11.42 Status post cardiac pacemaker procedure Z95.0 Cardiomyopathy I42.9
[2020-11-22 12:10] LABS: Glucose Point of Care 253 mg/dL (70-110)
[2020-11-22 13:12] LABS: Free T4 Free Thyroxine 1.22 ng/dL (0.82-1.77)
[2020-11-22 16:53] LABS: Glucose Point of Care 79 mg/dL (70-110)
--- NOTE | 2020-11-22 18:37 | USCV_ITS ---
Refugio Amanda Age: 75 Gender: M : 1945 Exam Date: 11/22/2020 09:20 Ordering Phys: Katerine Padilla MD Technologist: Alison Patterson Exam Location: [facility] [place] Indication: DVT concern with high d-dimer HISTORY: Lower extremity swelling. PROCEDURES: Comparison: 10-01-19. Venous duplex imaging was performed in bilateral lower extremities. The following venous structures were evaluated: common femoral vein, profunda vein, proximal portion of the greater saphenous vein, superficial femoral vein, and the popliteal vein. In addition, the posterior tibial and peroneal trunk were evaluated. Serial compression, augmentation maneuvers, and spectral Doppler flow evaluation were performed. FINDINGS: No evidence of DVT seen in any vessel visualized at this time. Calf edema noted bilaterally. Pulsatile venous flow in the proximal veins Veins were found to be easily compressible CONCLUSIONS No evidence of DVT in the above-mentioned identifiable veins. Features of high central venous pressure Calf edema is noted bilaterally Dr Luc Roque MD [facility] (Electronically Signed) Final Date: 23 November 2020 10:25 S
[2020-11-22] MEDS: apixaban 5 mg Tablet PO (21:34)
[2020-11-22 21:41] LABS: Glucose Point of Care 163 mg/dL (70-110)
[2020-11-22 22:46] LABS: Glucose Point of Care 187 mg/dL (70-110)
[2020-11-23] VITALS (9 sets, daily range): BP systolic 121–154; BP diastolic 65–87; PULSE 60–86; RESP 16–18; TEMP 36.3–36.6; O2SAT 92–99
[2020-11-23] MEDS: FUROsemide 10 mg/mL SDV 10mL 80 MG IVP (05:09)
[2020-11-23 06:25] LABS: Basophils # 0.1 10^3/uL (0.0-0.1); Basophils % 1.4 %; Eosinophils # 0.3 10^3/uL (0.0-0.8); Eosinophils % 5.9 %; Hematocrit 31.3 % (42.0-52.0); Hemoglobin 9.9 g/dL (11.7-16.6); Lymphocytes # 0.9 10^3/uL (0.8-4.8); Lymphocytes % 21.9 %; Mean Corpuscular HGB Conc 31.6 g/dL (30.0-36.0); Mean Corpuscular Hemoglobin 28.1 pg (28.0-34.0); Mean Corpuscular Volume 88.9 fl (80-94); Mean Platelet Volume 10.9 fL (7.4-10.4); Monocytes # 0.5 10^3/uL (0.2-0.9); Monocytes % 10.8 %; Neutrophils # 2.54 10^3/uL (1.8-7.7); Neutrophils % 59.8 %; Nucleated Red Blood Cells % 0 %; Platelet Count 193 10^3/cmm (130-400); Red Blood Count 3.52 10^6/uL (4.1-5.3); Red Cell Distribution Width 17.9 % (12.1-15.1); White Blood Count 4.3 10^3/uL (4.0-10.0)
[2020-11-23 07:00] LABS: Anion Gap 16.4 (5-19); Blood Urea Nitrogen 23 mg/dL (8-23); Calcium 8.8 mg/dL (8.5-10.5); Carbon Dioxide 28 mmol/L (22-29); Chloride 95 mmol/L (98-107); Glucose 129 mg/dL (65-115); Osmolality Calculated 287 mOsm/kg (285-295); Potassium 3.4 mmol/L (3.5-5.1); Sodium 136 mmol/L (136-145)
[2020-11-23 07:06] LABS: Glucose Point of Care 160 mg/dL (70-110)
--- NOTE | 2020-11-23 08:41 | PC.SOCIAL ---
IM follow up discussed with and she verbalized understanding and had no questions. This was completed by phone due to patient being ruled out for COVID and test is pending.
[2020-11-23] MEDS: levothyroxine 100 mcg Tablet PO (08:51)
[2020-11-23] MEDS: apixaban 5 mg Tablet PO (08:52)
[2020-11-23] MEDS: pantoprazole DR 40 mg Tablet PO ×2 (08:52→17:01)
[2020-11-23] MEDS: tamsulosin 0.4 mg Capsule PO (08:52)
[2020-11-23] MEDS: atorvastatin 40 mg Tablet 20 MG PO (08:52)
[2020-11-23] MEDS: potassium chloride ER 10 mEq Tablet PO (08:52)
[2020-11-23] MEDS: mupirocin oint 22 gm 1 APPLIC TOPICAL ×2 (08:56→17:01)
[2020-11-23] MEDS: sacubitril/valsartan 24-26 mg Tablet 1 EACH PO ×2 (09:46→17:01)
[2020-11-23 11:01] LABS: Glucose Point of Care 195 mg/dL (70-110)
--- NOTE | 2020-11-23 12:59 | PM.PN ---
Subjective Subjective: Interval history: Patient was seen and examined this morning, creatinine is around 1.7, negative urine output Patient is endorsing feeling better less bloating in his abdomen, breathing better He was saturating well on 3 L nasal cannula Used BiPAP at night finished his breakfast this morning Vitals/I&O/Wt Last Vital Signs Temp 97.6 F 11/23/20 08:00 Pulse 62 11/23/20 09:20 Resp 18 11/23/20 08:00 BP 148/83 11/23/20 08:00 Pulse Ox 96 11/23/20 09:20 11/22/20 11/23/20 11/23/20 22:59 06:59 14:59 Intake Total 120 / 720 360 / 360 Output Total 450 / 1650 1000 / 2650 1000 / 1000 Balance -330 / -930 -1000 / -1930 -640 / -640 Physical Exam Narrative: EXAM NARRATIVE: Patient was pleasant and cooperative Saturating well on 2 L S1, S2 Sign of congestive heart failure Generalized anasarca b/l lower extremity venous stasis dermatitis bilaterally, mild cellulitic changes of left leg EOMI, PERRLA no neurological deficit Bilateral breath sound without adventitious rhonchi or crackles Data : 11/23/20 05:59 11/23/20 05:59 A&P Assessment and plan (1) BRAIN (acute kidney injury): Status: Acute (2) Acute exacerbation of CHF (congestive heart failure): Status: Acute Qualifiers: Heart failure type: systolic Qualified Code(s): I50.23 - Acute on chronic systolic (congestive) heart failure (3) Anasarca: Status: Acute (4) Volume overload: Status: Acute (5) Venous ulcer of left leg: Status: Acute (6) Chronic ulcer of left foot with fat layer exposed: Status: Acute (7) Peripheral arterial disease: Status: Acute (8) Diabetic peripheral neuropathy associated with type 2 diabetes mellitus: Status: Acute (9) Cardiomyopathy: Status: Acute Additional A&P Information Acute on chronic congestive heart failure exacerbation Nonischemic cardiomyopathy Patient has put out good amount of urine -1.7 L balance today I would like to decrease diuretic regimen to once a day instead of twice a day Hypokalemia: Repleted Acute kidney injury secondary to cardiorenal etiology Anticipating improvement with diuresis Chronic hypoxic respiratory failure Saturating well on 2 to 3 L nasal cannula no acute exacerbation A. fib heart rate currently under control, pacemaker interrogation Full code Cardiac diet Eliquis DVT prophylaxis Continue Entresto Covid PCR is still pending Attestations Medical Necessity Statement*: Anticipating discharge tomorrow back home if creatinine improving Time Spent in Patient Care: less than 15 minutes Coding Level of Care Code Acute Pedigree Researcher for Chg Fwd Diagnoses BRAIN (acute kidney injury) N17.9 Acute exacerbation of CHF (congestive heart failure) I50.23 Heart failure type: systolic Anasarca R60.1 Volume overload E87.70 Venous ulcer of left leg I83.029; L97.929 Chronic ulcer of left foot with fat layer exposed L97.522 Peripheral arterial disease I73.9 Diabetic peripheral neuropathy associated with type 2 diabetes mellitus E11.42 Cardiomyopathy I42.9
[2020-11-23] MEDS: potassium chloride oral liq 20 mEq/15 mL UDC 40 MEQ PO (14:08)
[2020-11-23] MEDS: oxyCODONE-APAP 5-325 mg Tablet 1.5 TAB PO (16:23)
--- NOTE | 2020-11-23 16:24 | PC.NURSE ---
patient reports pain level of 8-9 on 0-10 pain scale to lower legs, PRN percocet given per doctors orders, see MAR for further details.
[2020-11-23 16:39] LABS: Glucose Point of Care 120 mg/dL (70-110)
[2020-11-23 21:20] LABS: Glucose Point of Care 160 mg/dL (70-110)
--- NOTE | 2020-11-23 21:20 | PC.NURSE ---
i reported low temp 97.4 to nurse
[2020-11-23] MEDS: apixaban 5 mg Tablet 2.5 MG PO (21:48)
[2020-11-24] VITALS (10 sets, daily range): BP systolic 115–148; BP diastolic 71–78; PULSE 60–72; RESP 16–23; TEMP 36.4–36.9; O2SAT 93–98
[2020-11-24 05:59] LABS: Anion Gap 16.4 (5-19); Blood Urea Nitrogen 27 mg/dL (8-23); Calcium 8.4 mg/dL (8.5-10.5); Carbon Dioxide 28 mmol/L (22-29); Chloride 97 mmol/L (98-107); Glucose 121 mg/dL (65-115); Osmolality Calculated 292 mOsm/kg (285-295); Potassium 3.4 mmol/L (3.5-5.1); Sodium 138 mmol/L (136-145)
[2020-11-24 06:29] LABS: Glucose Point of Care 136 mg/dL (70-110)
--- NOTE | 2020-11-24 08:34 | PC.RESP ---
PULMONARY REHAB INFORMATION SENT TO PATIENT.
[2020-11-24] MEDS: atorvastatin 40 mg Tablet 20 MG PO (09:30)
[2020-11-24] MEDS: levothyroxine 100 mcg Tablet PO (09:30)
[2020-11-24] MEDS: pantoprazole DR 40 mg Tablet PO ×2 (09:30→17:27)
[2020-11-24] MEDS: potassium chloride oral liq 20 mEq/15 mL UDC 40 MEQ PO (09:30)
[2020-11-24] MEDS: tamsulosin 0.4 mg Capsule PO (09:30)
[2020-11-24] MEDS: apixaban 5 mg Tablet 2.5 MG PO ×2 (09:31→21:46)
[2020-11-24] MEDS: potassium chloride ER 20 mEq Tablet PO (09:31)
[2020-11-24] MEDS: sodium chloride 0.9% 250 ML IV ×2 (09:31→17:27)
[2020-11-24] MEDS: mupirocin oint 22 gm 1 APPLIC TOPICAL ×2 (09:34→17:41)
[2020-11-24] MEDS: sacubitril/valsartan 24-26 mg Tablet 1 EACH PO (09:36)
[2020-11-24 12:20] LABS: Glucose Point of Care 216 mg/dL (70-110)
--- NOTE | 2020-11-24 13:09 | P.PN_ITS ---
Subjective Subjective: Interval history: Patient was seen and examined this morning noticed worsening creatinine, Lasix discontinued His weight reduced from 125 kg to 95 kg -7 L fluid balance We will give him 250 cc bolus Covid PCR and VQ scan pending Vitals/I&O/Wt Last Vital Signs Temp 97.6 F 11/24/20 12:00 Pulse 60 11/24/20 12:00 Resp 18 11/24/20 12:00 BP 124/77 11/24/20 12:00 Pulse Ox 93 11/24/20 12:00 11/23/20 11/24/20 11/24/20 22:59 06:59 14:59 Intake Total 240 / 840 0 / 840 490 / 490 Output Total 320 / 1720 1280 / 3000 300 / 300 Balance -80 / -880 -1280 / -2160 190 / 190 Physical Exam Narrative: EXAM NARRATIVE: Patient was sitting in semi-Spears position saturating well on 1.5 L nasal cannula S1, S2 sinus rhythm Mild crackles noted at the base of the lungs bilaterally Abdomen looks less distended soft nondistended tender Bilateral lower extremity 1+ pitting edema with venous stasis dermatitis, cellulitis seems to be improving EOMI, PERRLA Awake and alert Data : 11/23/20 05:59 11/24/20 04:45 A&P Assessment and plan (1) BRAIN (acute kidney injury): Status: Acute (2) Acute exacerbation of CHF (congestive heart failure): Status: Acute Qualifiers: Heart failure type: systolic Qualified Code(s): I50.23 - Acute on chronic systolic (congestive) heart failure (3) Anasarca: Status: Acute (4) Volume overload: Status: Acute (5) Venous ulcer of left leg: Status: Acute (6) Chronic atrial fibrillation: Status: Acute (7) Diabetic peripheral neuropathy associated with type 2 diabetes mellitus: Status: Acute (8) Nonischemic cardiomyopathy: Status: Acute (9) Status post cardiac pacemaker procedure: Status: Acute Additional A&P Information Acute reduced action fraction heart rate exacerbation -7 L fluid balance Weight change from 125 kg to 95 kg Probably over diuresed, patient is feeling better less distended abdomen I would give him 250 cc bolus today, discontinue Lasix Hypokalemia: Potassium repleted Covid PCR pending High D-dimer no acute worsening of hypoxia, VQ scan pending BRAIN secondary to CHF Hold Entresto, Eliquis reduced dose, Probably over diuresed Cardiac diet DVT prophylaxis Lovenox Continue multivitamins bilateral lower extremity DVT currently on therapeutic dose of Lovenox Chronic hypoxic respite failure without acute exacerbation Full code Cardiac diet Attestations Medical Necessity Statement*: Anticipating discharge once his creatinine is improved, Covid PCR is still pending Time Spent in Patient Care: less than 15 minutes Coding Level of Care Code Acute Data Power Consultant for g Fwd Diagnoses BRAIN (acute kidney injury) N17.9 Acute exacerbation of CHF (congestive heart failure) I50.23 Heart failure type: systolic Anasarca R60.1 Volume overload E87.70 Venous ulcer of left leg I83.029; L97.929 Chronic atrial fibrillation I48.20 Diabetic peripheral neuropathy associated with type 2 diabetes mellitus E11.42 Nonischemic cardiomyopathy I42.8 Status post cardiac pacemaker procedure Z95.0
[2020-11-24 17:04] LABS: Glucose Point of Care 148 mg/dL (70-110)
[2020-11-24] MEDS: oxyCODONE-APAP 5-325 mg Tablet 1.5 TAB PO (18:33)
[2020-11-24 20:59] LABS: Glucose Point of Care 196 mg/dL (70-110)
[2020-11-25] VITALS (9 sets, daily range): BP systolic 119–151; BP diastolic 68–87; PULSE 60–83; RESP 14–24; TEMP 36.4–37; O2SAT 90–98
[2020-11-25 04:47] LABS: Anion Gap 15.7 (5-19); Blood Urea Nitrogen 29 mg/dL (8-23); Calcium 8.6 mg/dL (8.5-10.5); Carbon Dioxide 27 mmol/L (22-29); Chloride 99 mmol/L (98-107); Glucose 105 mg/dL (65-115); Magnesium 2.1 mg/dL (1.7-2.3); Osmolality Calculated 292 mOsm/kg (285-295); Potassium 3.7 mmol/L (3.5-5.1); Sodium 138 mmol/L (136-145)
--- NOTE | 2020-11-25 05:26 | PC.NURSE ---
Shift Note Frequent safety and comfort rounds continue. Orders and/or nursing care completed as indicated. Patient monitored for response to intervention and treatment(s). Education provided includes encouraging patient to verbalize pain so it can be addressed. Patient verbalized understanding but states he does not like to take pain medication unless the pain is real severe. Patient rested well throughout the night without complaint. Patient is currently resting comfortably in bed. Will continue to monitor.
[2020-11-25 06:18] LABS: Glucose Point of Care 121 mg/dL (70-110)
--- NOTE | 2020-11-25 07:26 | NM_ITS ---
WS: [id number] NUCLEAR MEDICINE VENTILATION/PERFUSION LUNG SCAN HISTORY: HYPOXIA COMPARISON: Chest radiograph 11/25/2020 TECHNIQUE: Ventilation: 31.7 mCi of Technetium 99 DTPA aerosol inhaled. Perfusion: 5.2 mCi of technetium 99m MAA IV. Deposition of radionuclide centrally. Lungs are hyperexpanded. No peripheral unmatched defects are id entified. Heart appears enlarged. Mild blunting of the costophrenic angles is bilateral. NM/NM pul vent and perfus* 88000 IMPRESSION: Low probability pulmonary embolism.
--- NOTE | 2020-11-25 08:31 | P.CONIM_ITS ---
Providers/Reason For Consult Consulting Physician/Specialty*: triston stevenson md / telenephrology Reason for Consult*: BRAIN Attending Physician: Katerine Padilla MD Primary Care Provider: Mary Lou Anaya MD History of Present Illness History of Present Illness Refugio Amanda is a 75 year old male non ischemic CM- EF 35-40%, moderate MR, a fib, s/p PPM, PAD, CAD. Pt has been requiring more lasix at home recently. He saw Dr. Roque on 11-21-20 and was sne to ER. Pt was given iv lasix and has had a significant diuresis. Renal is called as his cr has been rising. In June 2020- cr 1.1 mg/dl. 10/31/20- cr 1.7 mg/dl. 11-20-20 cr 1.8 mg/dl. He was started on iv lasix on 11-21-20 and on 11-22 cr 1.6 g/dl. on 11-24-20 cr 1.9 mg/dl- entresto held, decreased lasix, and 500 ml fluid boluses given. today 11-25-20- cr 2.1 mg/dl and renal called to consult. the pt had a chest CTA on 11-04-20- Significant four-chamber cardiac enlargement with evidence of poor right ventricular function. Likely this is due to poor left ventricular function. The pulmonary parenchymal findings are nonspecific and not the typical Covid infiltrative pattern. Groundglass density seen in this case can be seen with congestive heart failure. Acute pneumonitis even acute Covid pneumonitis is not excluded. Review of Systems General: Reports: 10 or more systems reviewed and unremarkable except in HPI a nd below Narrative: feels better. decreased edema and sob. has difficulty urinating. no orthopnea now. had CAMERON prior to admission Meds/Allergies Home Medications and Allergies Home Medications Medication Instructions Recorded Confirmed Last Taken Type apixaban 5 mg tablet 5 mg PO BID 04/09/19 11/20/20 11/20/20 History cinnamon bark 500 mg capsule 500 mg PO BID cap 04/09/19 11/20/20 11/20/20 History gabapentin 800 mg tablet 800 mg PO TID 04/09/19 11/20/20 11/20/20 History glipizide 10 mg tablet 20 mg PO BID 04/09/19 11/20/20 11/20/20 History levothyroxine 100 mcg capsule 100 mcg PO DAILY cap 04/09/19 11/20/20 11/04/20 History metformin 850 mg tablet 850 mg PO TID 04/09/19 11/20/20 11/20/20 History omeprazole 20 mg capsule,delayed 20 mg PO BID 04/09/19 11/20/20 11/20/20 History release vitamin B complex 1 cap PO DAILY cap 04/09/19 11/20/20 11/20/20 History vitamin E (dl, acetate) 450 mg 1,000 unit PO DAILY cap 04/09/19 11/20/20 11/20/20 History (1,000 unit) capsule pentoxifylline 400 mg 400 mg PO TID 04/12/19 11/20/20 11/20/20 History tablet,extended release alogliptin 25 mg tablet 25 mg PO DAILY 11/29/19 11/20/20 11/20/20 History Fish Oil 1 cap PO BID 06/03/20 11/20/20 11/20/20 History Entresto 1 tab PO BID #60 tab 06/13/20 11/20/20 11/20/20 Rx furosemide 60 mg PO DAILY #0 tab 06/13/20 11/20/20 11/20/20 Rx potassium chloride [Klor-Con 10] 10 meq PO DAILY #30 tab MDD see 06/13/20 11/20/20 06/19/20 08:00 Rx pharmacy comment atorvastatin 40 mg tablet 20 mg PO DAILY 08/27/20 11/20/20 11/20/20 History tamsulosin [Flomax] 0.4 mg PO DAILY #30 cap 10/31/20 11/20/20 11/20/20 Rx oxycodone-acetaminophen 1 tab PO TID PRN 11/20/20 11/20/20 Unknown History Allergies Allergy/AdvReac Type Severity Reaction Status Date / Time lisinopril Allergy Unknown Verified 11/20/20 09:35 Current Medications Current Medications Generic Name Dose Route Start Last Admin Trade Name Freq PRN Reason Stop Dose Admin Apixaban 2.5 mg 11/23/20 21:00 11/24/20 21:46 Apixaban 5 Mg Tablet PO 2.5 mg BID@0900,2100 JAIR Administration Atorvastatin Calcium 20 mg 11/21/20 09:00 11/24/20 09:30 Atorvastatin 40 Mg Tablet PO 20 mg DAILY JAIR Administration Insulin Aspart 0 unit 11/21/20 08:00 11/25/20 07:10 Insulin Aspart 100 Unit/1 Ml SUBCUT Not Given [facility] Protocol Levothyroxine Sodium 100 mcg 11/21/20 09:00 11/24/20 09:30 Levothyroxine 100 Mcg Tablet PO 100 mcg DAILY JAIR Administration Mupirocin 1 applic 11/21/20 18:00 11/24/20 17:41 Mupirocin Oint 22 Gm TOPICAL 1 applic BID JAIR Administration Pantoprazole Sodium 40 mg 11/21/20 09:00 11/24/20 17:[address] 40 Mg Tablet PO 40 mg BID JAIR Administration Potassium Chloride 40 meq 11/23/20 13:30 11/24/20 09:30 Potassium Chloride Oral Liq 20 Meq/15 Ml Udc PO 40 meq DAILY JAIR Administration Sacubitril/Valsartan 1 each 11/21/20 09:00 11/24/20 09:36 Sacubitril/Valsartan 24-26 Mg Tablet PO 1 each BID JAIR Administration Tamsulosin HCl 0.4 mg 11/21/20 09:00 11/24/20 09:30 Tamsulosin 0.4 Mg Capsule PO 0.4 mg DAILY JAIR Administration PFSH Acute PFSH: Medical History (Updated 11/21/20 @ 18:32 by Katerine Padilla MD) Abdominal pain Abnormal nuclear stress test Acute exacerbation of CHF (congestive heart failure) Acute on chronic diastolic (congestive) heart failure Acute on chronic systolic heart failure BRAIN (acute kidney injury) Anasarca Asymptomatic microscopic hematuria Atherosclerotic heart disease Bradycardia Patient has a longstanding history of atrial fibrillation and bradycardia. Chest pain CHF (congestive heart failure) Chronic atrial fibrillation Patient is on long-term oral anticoagulation. Chronic venous insufficiency Cirrhosis COPD (chronic obstructive pulmonary disease) Diabetes Diverticulosis Hx of cardiac pacemaker Hyperlipidemia Hypertension Left upper quadrant pain pen[facility] (current) use of opiate analgesic Non-healing ulcer Osteomyelitis Right toe status post debridement and bone biopsy, [facility] PAD (peripheral artery disease) Patient has two-vessel runoff on the left side and three-vessel runoff on the right side. He has mild to moderate diffuse peripheral arterial disease. Pain management contract signed Sleep apnea SOB (shortness of breath) Patient is known to have COPD Varicose veins of bilateral lower extremities with other complications Surgical History History of hip surgery Hx of toe surgery Hx of tonsillectomy Family History Father , at age 57 Cancer Mother , at age 91 Cancer breast Other CAD (coronary artery disease) Diabetes Denies family history of Clotting disorder Dementia Chronic kidney disease (CKD) Suicide Anesthesia complication Bleeding disorder Lung disease Stroke Social History Smoking and tobacco status: never smoked Alcohol intake: never Lives independently: Yes Household members: spouse Housing: House Marital status: Current occupational status: employed History of recent travel: No Vitals/I&O/Wt Last Vital Signs Temp 97.7 F 11/25/20 07:44 Pulse 62 11/25/20 07:44 Resp 20 H 11/25/20 07:44 BP 145/81 11/25/20 07:44 Pulse Ox 98 11/25/20 07:44 11/24/20 11/25/20 11/25/20 22:59 06:59 14:59 Intake Total 610 / 1100 Output Total 400 / 700 300 / 1000 300 / 300 Balance 210 / 400 -300 / 100 -300 / -300 Physical Exam Narrative: EXAM NARRATIVE: comfortable , NARd, VSS henet- nc/at, eomi, anicteric neck- supple, no jvp lungs- bases dull heart- irreg, +RUSLAN, no rub, + s1, s2 abd soft, distended ext ankle edema b/l neuro- a,a, o x 3, from x 4 A&P Additional A&P Information 75 yr old man 1. subacute renal failure- cr was 1 in June 2020- cr was 1.7 mg/dl on 10-31-20 prior to CTA, cr 1.8 on 11-20-20 and now cr 2.1 mg/dl -u/a 3+ blood, no prot. 5-10 rbc, 10-15 wbc, 0-4 sq epi -will check renal us -hold lasix -monitor chemistries, uop BRAIN- likely from diuretics/ wt loss from diuresis and CRS -as hematuria- check serologies 2. anemia- full eval-include iron studies ansd spep/ upep 3. rt and left heart failure 4. dm control- hold metformin w/ BRAIN seen and examined w/ RN- telehealth visit time spent 55 minutes Consult Attestations Medical Necessity Statement: brain, chf Time Spent in Patient Care: Greater than 35 minutes Coding Level of Care Code Acute Exhaust Equipment Operator for Myles Boo
--- NOTE | 2020-11-25 08:47 | US_ITS ---
WS: [id number] RENAL ULTRASOUND HISTORY: chuck COMPARISON: 06/03/2020 TECHNIQUE: 2-D and color Doppler imaging of the kidney submitted. Right kidney: 12.3 cm x 6.0 cm x 7.3 cm. Normal echogenicity with no hydronephrosis or mass. Left kidney: 12.6 cm x 6.1 cm x 5.5 cm. Normal size kidney. No hydronephrosis. There are 2 cysts noted. The largest in the superior pole veronica ures 2.4 x 3.7 x 3.6 cm. There is a smaller cyst in the mid kidney. These were previously described o n the CT of 06/03/2020. No solid mass. Aorta: Normal. Urinary Bladder: Mild bladder wall thickening is diffuse. No mass identified bladder. US/US renal BI* [id number] IMPRESSION: 1. No renal obstruction or solid mass identified. 2. Two simple cysts LEFT kidney are stable. 3. Mild diffuse bladder wall thickening.
[2020-11-25 09:28] LABS: Coronavirus Test Green County Not Detected
[2020-11-25] MEDS: atorvastatin 40 mg Tablet 20 MG PO (09:51)
[2020-11-25] MEDS: tamsulosin 0.4 mg Capsule PO (09:51)
[2020-11-25] MEDS: apixaban 5 mg Tablet 2.5 MG PO ×2 (09:51→20:51)
[2020-11-25] MEDS: potassium chloride oral liq 20 mEq/15 mL UDC 40 MEQ PO (09:51)
[2020-11-25] MEDS: pantoprazole DR 40 mg Tablet PO ×2 (09:51→17:33)
[2020-11-25] MEDS: levothyroxine 100 mcg Tablet PO (09:51)
[2020-11-25] MEDS: mupirocin oint 22 gm 1 APPLIC TOPICAL ×2 (09:56→17:35)
[2020-11-25 10:36] LABS: Glucose Point of Care 160 mg/dL (70-110)
--- NOTE | 2020-11-25 10:51 | XR_ITS ---
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 No focal consolidations. Cardiac size: Moderately enlarged cardiac silhouette. Mediastinum/Aorta: Mild atherosclerosis aorta. Single lead LEFT subclavian pacer wire. Bones: Sun. XR/XR chest 2V* [id number] IMPRESSION: Mild diffuse interstitial thickening may be related to edema or pneumonitis. No focal pneumonia or consolidation.
--- NOTE | 2020-11-25 12:08 | PC.SOCIAL ---
IMM Update pg 2 updated via telephone w/ patient and copy placed in chart.
[2020-11-25] MEDS: oxyCODONE 5 mg IR Tab/Cap PO ×2 (12:53→18:18)
[2020-11-25 12:54] LABS: Potassium, Radom Urine 66 mmol/L; Urine Random Sodium 22 mmol/L
[2020-11-25 13:17] LABS: Urine Random Chloride < 10 mmol/L
--- NOTE | 2020-11-25 13:43 | PM.PN ---
Subjective Subjective: Interval history: Patient was seen and examined this morning consulted forensic photographer for worsening creatinine, his Lasix was discontinued yesterday he received 500 mm of fluids via IV Nephro recommendations appreciated, we are holding off on Lasix for now Significant amount of weight loss, 8 L urine output today negative balance of 390 mL Weight 95 kg down from 125 kg Patient went for a VQ scan, Covid PCR is negative Low probability for PE chest x-ray showing venous congestion however improved from previous, renal ultrasound without hydronephrosis Creatinine 2.1 today No signs of DVT Vitals/I&O/Wt Last Vital Signs Temp 97.5 F L 11/25/20 11:44 Pulse 71 11/25/20 11:44 Resp 14 11/25/20 11:44 BP 151/87 11/25/20 11:44 Pulse Ox 96 11/25/20 11:44 11/24/20 11/25/20 11/25/20 22:59 06:59 14:59 Intake Total 610 / 1100 Output Total 400 / 700 300 / 1000 300 / 300 Balance 210 / 400 -300 / 100 -300 / -300 Physical Exam Narrative: EXAM NARRATIVE: Patient was seen and examined this morning He was sitting at the bedside His lungs are sounding much better today I did not hear any crackles or crepitations as compared to yesterday He saturating well on 2 L nasal cannula Use BiPAP at night Looks: Less bloated Abdomen soft nontender Lower extremity 2+ pitting edema No active signs of worsening of cellulitis S1, S2 Active signs of CHF EOMI, PERRLA Data : 11/23/20 05:59 11/25/20 04:03 A&P Assessment and plan (1) Acute exacerbation of CHF (congestive heart failure): Status: Acute Qualifiers: Heart failure type: systolic Qualified Code(s): I50.23 - Acute on chronic systolic (congestive) heart failure (2) Anasarca: Status: Acute (3) Volume overload: Status: Acute (4) Asymptomatic microscopic hematuria: Status: Acute (5) Venous ulcer of left leg: Status: Acute (6) Diabetic peripheral neuropathy associated with type 2 diabetes mellitus: Status: Acute (7) Chronic atrial fibrillation: Status: Acute (8) Status post cardiac pacemaker procedure: Status: Acute (9) Cardiomyopathy: Status: Acute (10) PAD (peripheral artery disease): Status: Acute Additional A&P Information Acute exacerbation of reduced action fraction heart failure Patient diuresed with negative fluid balance of 8 L since admission Weight loss decreased from 125 kg to 95 kg Clinically he has shown improvement he looks less distended, anasarca improved lungs are sounding much better as compared to yesterday he still requiring 2 L of oxygen which is his home requirement Lasix on hold secondary to worsening creatinine BRAIN secondary to CHF exacerbation Aggressive diuresis Current creatinine 2.1 Nephro recommendations appreciated, diuretics on hold for now, Entresto and nephrotoxic agents were held yesterday Clinically looks less volume overloaded Chest x-ray shows improvement in vascular congestion from previous chest x-ray Renal ultrasound without any hydronephrosis No active signs of UTI Normal albumin Chronic hypoxic respite failure Covid PCR negative VQ scan low probability for PE Venous stasis dermatitis with underlying peripheral arterial disease No worsening of cellulitis, finished doxycycline regimen during this hospitalization No acute worsening or decompensation of peripheral arterial disease Chronic A. fib Status post pacemaker placement, pacemaker interrogation done Eliquis low-dose secondary to BRAIN For his hematuria he does follow-up with Dr. Chávez, BPH Hemoglobin stable however slightly low from baseline Cardiac diet Eliquis would suffice DVT prophylaxis Venous Doppler ruled out DVT Full code Patient is very anxious and eager to go home however unfortunately because of worsening of creatinine will like to monitor at least 48 hours more in the hospital Attestations Medical Necessity Statement*: He will need hospitalization, nephro consulted today for worsening creatinine Time Spent in Patient Care: 16 - 35 minutes Coding Level of Care Code Acute Water Pump Servicer for Chg Fwd Diagnoses Acute exacerbation of CHF (congestive heart failure) I50.23 Heart failure type: systolic Anasarca R60.1 Volume overload E87.70 Asymptomatic microscopic hematuria R31.21 Venous ulcer of left leg I83.029; L97.929 Diabetic peripheral neuropathy associated with type 2 diabetes mellitus E11.42 Chronic atrial fibrillation I48.20 Status post cardiac pacemaker procedure Z95.0 Cardiomyopathy I42.9 PAD (peripheral artery disease) I73.9
[2020-11-25 16:59] LABS: Glucose Point of Care 200 mg/dL (70-110)
[2020-11-25 20:16] LABS: Glucose Point of Care 114 mg/dL (70-110)
[2020-11-25 23:17] LABS: Hepatitis C Virus Antibody Non-Reactive (Nonreactive)
[2020-11-26] VITALS (7 sets, daily range): BP systolic 122–145; BP diastolic 72–85; PULSE 60–88; RESP 18; TEMP 36.4–37; O2SAT 96–99
[2020-11-26 05:56] LABS: Basophils # 0.1 10^3/uL (0.0-0.1); Basophils % 1.6 %; Eosinophils # 0.2 10^3/uL (0.0-0.8); Eosinophils % 5.5 %; Hematocrit 31.2 % (42.0-52.0); Hemoglobin 9.8 g/dL (11.7-16.6); Lymphocytes # 0.9 10^3/uL (0.8-4.8); Lymphocytes % 21.5 %; Mean Corpuscular HGB Conc 31.4 g/dL (30.0-36.0); Mean Corpuscular Hemoglobin 27.8 pg (28.0-34.0); Mean Corpuscular Volume 88.6 fl (80-94); Mean Platelet Volume 10.9 fL (7.4-10.4); Monocytes # 0.4 10^3/uL (0.2-0.9); Neutrophils # 2.68 10^3/uL (1.8-7.7); Neutrophils % 61.2 %; Nucleated Red Blood Cells % 0 %; Platelet Count 174 10^3/cmm (130-400); Red Blood Count 3.52 10^6/uL (4.1-5.3); Red Cell Distribution Width 17.9 % (12.1-15.1); White Blood Count 4.4 10^3/uL (4.0-10.0)
[2020-11-26 06:22] LABS: Alanine Aminotransferase 11 U/L (0-41); Albumin Level 3.6 g/dL (3.5-5.2); Alkaline Phosphatase 120 IU/L (40-130); Anion Gap 15.2 (5-19); Aspartate Amino Transferase 22 U/L (0-40); Blood Urea Nitrogen 30 mg/dL (8-23); Calcium 8.9 mg/dL (8.5-10.5); Carbon Dioxide 25 mmol/L (22-29); Chloride 100 mmol/L (98-107); Ferritin 112 ng/mL (30-400); Globulin 3.3 g/dL (1.3-4.6); Glucose 136 mg/dL (65-115); Iron 47 ug/dL (59-158); Magnesium 2.2 mg/dL (1.7-2.3); Osmolality Calculated 290 mOsm/kg (285-295); Percent Saturation 19.1 % (20-50); Phosphorus 3.8 mg/dL (2.5-4.5); Potassium 4.2 mmol/L (3.5-5.1); Sodium 136 mmol/L (136-145); Total Bilirubin 1.1 mg/dL (0.15-1.2); Total Iron Binding Capacity 245 mcg/dl; Total Protein 6.9 g/dL (6.6-8.7); Unsaturated Iron Binding 198 ug/dL (112-347)
[2020-11-26 06:28] LABS: Calcium 8.8 mg/dL (8.5-10.5)
[2020-11-26 06:32] LABS: Parathyroid Hormone 97.9 pg/mL (15-65)
[2020-11-26 06:33] LABS: Glucose Point of Care 166 mg/dL (70-110)
--- NOTE | 2020-11-26 07:51 | P.PN_ITS ---
Subjective Subjective: Interval history: feels better. no n/v/f/c/jewell/d. dec sob. breathing well. Medications: Reviewed: Yes Medication Review Details: Current Medications Acetaminophen (Acetaminophen 325 Mg Tablet) 650 mg PO Q6H PRN PRN Reason: Mild/Mod Pain Or Temp >/= 101 Apixaban (Apixaban 5 Mg Tablet) 2.5 mg PO BID@0900,2100 [facility] Last Admin: 11/25/20 20:51 Dose: 2.5 mg Documented by: Atorvastatin Calcium (Atorvastatin 40 Mg Tablet) 20 mg PO DAILY [facility] Last Admin: 11/25/20 09:51 Dose: 20 mg Documented by: Dextrose (Dextrose 50% Syringe 50 Ml) 25 ml IVP ONCE PRN; Protocol PRN Reason: hypoglycemia protocol Dextrose (Dextrose 50% Syringe 50 Ml) 50 ml IVP PRN PRN; Protocol PRN Reason: hypoglycemia protocol Gabapentin (Gabapentin 100 Mg Capsule) 200 mg PO TID [facility] Glucagon (Glucagon 1 Mg/Ml Inj 1 Ml) 1 mg IM ONCE PRN; Protocol PRN Reason: Adult Acute Hypoglycemia Prot. Dextrose (D5w) 500 mls @ 100 mls/hr IV ONCE PRN; Protocol PRN Reason: Adult Acute Hypoglycemia Prot Insulin Aspart (Insulin Aspart 100 Unit/1 Ml) 0 unit SUBCUT WM&BEDTIME [facility]; Protocol Last Admin: 11/25/20 21:21 Dose: Not Given Documented by: Levothyroxine Sodium (Levothyroxine 100 Mcg Tablet) 100 mcg PO DAILY [facility] Last Admin: 11/25/20 09:51 Dose: 100 mcg Documented by: Mupirocin (Mupirocin Oint 22 Gm) 1 applic TOPICAL BID [facility] Last Admin: 11/25/20 17:35 Dose: 1 applic Documented by: Non-Formulary Medication (Pentoxifylline) 400 mg PO TID [facility] Ondansetron HCl (Ondansetron 2 Mg/Ml Sdv 2 Ml) 4 mg IVP Q8H PRN PRN Reason: vomiting, or N/V if npo Pantoprazole Sodium (Pantoprazole Dr 40 Mg Tablet) 40 mg PO BID [facility] Last Admin: 11/25/20 17:33 Dose: 40 mg Documented by: Potassium Chloride (Potassium Chloride Oral Liq 20 Meq/15 Ml Udc) 40 meq PO DAILY [facility] Last Admin: 11/25/20 09:51 Dose: 40 meq Documented by: Sacubitril/Valsartan (Sacubitril/Valsartan 24-26 Mg Tablet) 1 each PO BID [facility] Last Admin: 11/24/20 09:36 Dose: 1 each Documented by: Tamsulosin HCl (Tamsulosin 0.4 Mg Capsule) 0.4 mg PO DAILY [facility] Last Admin: 11/25/20 09:51 Dose: 0.4 mg Documented by: Vitals/I&O/Wt Last Vital Signs Temp 97.9 F 11/26/20 07:44 Pulse 61 11/26/20 07:44 Resp 18 11/26/20 07:44 BP 143/84 11/26/20 07:44 Pulse Ox 97 11/26/20 07:44 11/25/20 11/26/20 11/26/20 22:59 06:59 14:59 Intake Total 360 / 360 Output Total 250 / 550 250 / 800 Balance 110 / -190 -250 / -440 Physical Exam Narrative: EXAM NARRATIVE: comfortable , NARd, VSS henet- nc/at, eomi, anicteric neck- supple, no jvp lungs- bases dull heart- irreg, +RUSLAN, no rub, + s1, s2 abd soft, distended ext ankle edema b/l neuro- a,a, o x 3, from x 4 Data : 11/26/20 05:26 11/26/20 05:26 A&P Additional A&P Information 75 yr old man 1. subacute renal failure- cr was 1 in June 2020- cr was 1.7 mg/dl on 10-31-20 prior to CTA, cr 1.8 on 11-20-20 and now cr 2.1 mg/dl -u/a 3+ blood, no prot. 5-10 rbc, 10-15 wbc, 0-4 sq epi -ur na 22- c/w prerenal azotemia -will check renal us -No renal obstruction or solid mass identified. Two simple cysts LEFT kidney are stable. -Mild diffuse bladder wall thickening. please have pt f/u w/ urology- as he has hematuria and bladder wall thickening -hold lasix -monitor chemistries, uop BRAIN- likely from diuretics/ wt loss from diuresis and CRS -as hematuria- check serologies - pending -pth 98 2. anemia- full eval- -low iron sat of 19% and ferritin 112- iv iron -f/u spep/ upep 3. rt and left heart failure - cxr w/ Lungs: Hyperinflated lungs with diffuse haziness 4. dm control- hold metformin w/ BRAIN 5. chronic a fib- per medicine/ cardiology 6. meds reviewed -off lasix. hold kdur. restart entresto daily and monitor renal fxn seen and examined w/ RN- telehealth visit time spent 30 minutes Attestations Medical Necessity Statement*: brain, chf exacerbation, hypothyroidism, anemia Time Spent in Patient Care: 16 - 35 minutes Coding Level of Care Code Acute Oil Well Driller for Myles Boo
[2020-11-26] MEDS: levothyroxine 100 mcg Tablet PO (08:19)
[2020-11-26] MEDS: tamsulosin 0.4 mg Capsule PO (08:20)
[2020-11-26] MEDS: pantoprazole DR 40 mg Tablet PO ×2 (08:20→18:05)
[2020-11-26] MEDS: apixaban 5 mg Tablet 2.5 MG PO ×2 (08:21→21:38)
[2020-11-26] MEDS: atorvastatin 40 mg Tablet 20 MG PO (08:22)
[2020-11-26] MEDS: mupirocin oint 22 gm 1 APPLIC TOPICAL ×2 (08:24→18:07)
[2020-11-26] MEDS: ferric gluconate 125 MG in sodium chloride 0.9% (100 ml) 100 ML 110 MG IV (08:46)
--- NOTE | 2020-11-26 09:25 | PC.CHAP ---
Pastoral Care Encounter/Spiritual Assessment Type of Contact [] Declined physics teacher visit [] Patient/Family/Request visit [] Outpatient visit [] Follow-up visit [] Physician referral [] Code/Alert [x] Routine visit [] Staff referral [] Actively dying [] Patient sleeping [] Family support [] [] Out of room [] Palliative care [] [] Receiving care in room [] Pre-surgical visit [] Trauma [] Long length of stay [] ICU visit [] Other: Relational/Emotional Strength [x] Patient feels connected with others/family/visitors/staff [] Distress [] Loneliness/isolation [] Abandonment Spirituality of Patient [x] Person of Isabel [x] Attends [employer] of their [place] [x] Believes in Prayer [x] Reads Bible or Mandaen materials [] There are Spiritual issues to be addressed Heart Doctor Interventions [] Prayer [x] Active listening [x] Non-anxious presence [x] Spiritual/emotional support [] Crisis/trauma care [] Spiritual counseling [] Bereavement support [] Provided bereavement packet [] Provided Bible/devotional materials [] Provided toy/stuffed animal, coloring book to patient or family member [] Provided Communion [] Anointing/[place] [] Salvation [x] Completed spiritual assessment [] Other: Impact on Illness or Injury [] Angry [] Fearful [] Anxious [] Often cries [] Exhaustion [] Unable to work [] Unable to attend mandaen [] Unable to walk/stand [] Unable to read [] Unable to drive [] Unable to eat/drink [] Unable to sleep [] Unable to be with family [] Patient intubated [] Other: Summary Visit cut short by Pt receiving phone call. Time spent with patient
[2020-11-26 10:08] LABS: PROTEIN, TOTAL 7.5 g/dL (6.1-8.1)
--- NOTE | 2020-11-26 10:22 | PC.NUTR ---
Nutrition follow up: 67 lb weight loss noted per chart review within 1 day. Question accuracy, however wt loss is cited on multiple occasions in MD notes, with pt noted to be 8 L negative fluid balance per MD note 11/25. Recommend monitor weight. Pt dislikes egg whites--will note on dietary info.May benefit from renal non-dialysis diet if renal function not improving. See full RD assessment for further details.
[2020-11-26 11:54] LABS: Glucose Point of Care 228 mg/dL (70-110)
[2020-11-26 12:58] LABS: KAPPA LIGHT CHAIN, FREE, SERUM 92.3 mg/L (3.3-19.4); LAMBDA LIGHT CHAIN, FREE, SERU 61.7 mg/L (5.7-26.3)
--- NOTE | 2020-11-26 13:36 | PM.PN ---
Subjective Subjective: Interval history: Patient was seen and examined, he was complaining of back pain for which he required oxycodone yesterday it seemed to help him to some extent, 24-hour urine collection to be completed today, creatinine improved off diuretics, Positive net balance today Hemoglobin stable No signs of PE, no signs of DVT Covid PCR negative Patient getting IV iron Vitals/I&O/Wt Last Vital Signs Temp 98.0 F 11/26/20 11:54 Pulse 68 11/26/20 11:54 Resp 18 11/26/20 11:54 BP 138/81 11/26/20 11:54 Pulse Ox 97 11/26/20 11:54 11/25/20 11/26/20 11/26/20 22:59 06:59 14:59 Intake Total 360 / 360 950 / 950 Output Total 250 / 550 250 / 800 Balance 110 / -190 -250 / -440 950 / 950 Physical Exam Narrative: EXAM NARRATIVE: Patient laying comfortably in his bed Saturating well on 2 L nasal cannula Lungs are sounding better no active wheezing or crackles Abdomen less distended nontender no signs of peritonitis Bowel sounds sluggish Lower extremity 1+ pitting edema which is improved from 2+ from day of admission No worsening of left leg cellulitis EOMI, PERRLA no neurological deficit Data : 11/26/20 05:26 11/26/20 05:26 A&P Assessment and plan (1) BRAIN (acute kidney injury): Status: Acute (2) Acute exacerbation of CHF (congestive heart failure): Status: Acute Qualifiers: Heart failure type: systolic Qualified Code(s): I50.23 - Acute on chronic systolic (congestive) heart failure (3) Anasarca: Status: Acute (4) Volume overload: Status: Acute (5) Asymptomatic microscopic hematuria: Status: Acute (6) Venous ulcer of left leg: Status: Acute (7) Peripheral arterial disease: Status: Acute (8) Diabetic peripheral neuropathy associated with type 2 diabetes mellitus: Status: Acute (9) Status post cardiac pacemaker procedure: Status: Acute (10) Cardiomyopathy: Status: Acute (11) PAD (peripheral artery disease): Status: Acute Additional A&P Information Acute exacerbation of ejection fraction heart failure Negative fluid balance of 8 L within 4 days leading to worsening of creatinine, currently off diuretics for last 48 hours Significant weight loss from 125 kg to 95 kg Clinically patient looking less fluid overloaded, lungs sound better as well, lower extremity edema has improved Entresto on hold due to worsening creatinine BRAIN secondary to prerenal azotemia Patient 24-hour urine collection to be completed today Multiple myeloma work-up requested Hematuria with bladder wall thickening He does follow up with Dr. Chávez on outpatient settings, will need close follow-up after discharge Appreciate nephro recommendations Currently monitoring kidney function off diuretics Chronic hypoxic restaurant failure no acute exacerbation Doing well on 2 L nasal cannula he does use BiPAP at night PE ruled out No signs of DVT Venous stasis dermatitis Finished doxycycline course for left leg cellulitis Chronic A. fib Pacemaker interrogation report in the chart Heart rate controlled Cardiac diet Eliquis Full code Patient seemed a bit upset because of his prolonged hospitalization, eager to return home, updated Attestations Medical Necessity Statement*: Continue medical management need work-up for worsening of kidney function Time Spent in Patient Care: less than 15 minutes Coding Level of Care Code Acute Auto Motor Mechanic for Chg Fwd Diagnoses BRAIN (acute kidney injury) N17.9 Acute exacerbation of CHF (congestive heart failure) I50.23 Heart failure type: systolic Anasarca R60.1 Volume overload E87.70 Asymptomatic microscopic hematuria R31.21 Venous ulcer of left leg I83.029; L97.929 Peripheral arterial disease I73.9 Diabetic peripheral neuropathy associated with type 2 diabetes mellitus E11.42 Status post cardiac pacemaker procedure Z95.0 Cardiomyopathy I42.9 PAD (peripheral artery disease) I73.9
[2020-11-26 15:32] LABS: Anti-Double Strand DNA AB 1 IU/mL; SS A Ro Sjogrens Antibody <1.0 NEG AI (<1.0 NEG); SS-B/LA IGG <1.0 NEG AI (<1.0 NEG)
[2020-11-26 15:37] LABS: ALBUMIN 3.8 g/dL (3.8-4.8); ALPHA 1 GLOBULIN 0.4 g/dL (0.2-0.3); ALPHA 2 GLOBULIN 0.8 g/dL (0.5-0.9); BETA 1 GLOBULIN 0.5 g/dL (0.4-0.6); BETA 2 GLOBULIN 0.5 g/dL (0.2-0.5); GAMMA GLOBULIN 1.5 g/dL (0.8-1.7)
[2020-11-26 16:18] LABS: Anti-Nuclear Antibody Screen NEGATIVE (NEGATIVE)
[2020-11-26 17:00] LABS: Glucose Point of Care 164 mg/dL (70-110)
[2020-11-26] MEDS: acetaminophen 325 mg Tablet 650 MG PO (19:31)
[2020-11-26 20:46] LABS: Glucose Point of Care 159 mg/dL (70-110)
[2020-11-27 00:25] VITALS: BP 120/71; PULSE 60; RESP 20; TEMP 36.5; O2SAT 96
[2020-11-27 04:15] VITALS: BP 135/76; PULSE 63; RESP 18; TEMP 36.8; O2SAT 98
[2020-11-27 04:50] VITALS: PULSE 75; RESP 20; O2SAT 98
[2020-11-27 06:17] LABS: Basophils # 0.1 10^3/uL (0.0-0.1); Basophils % 1.8 %; Eosinophils # 0.3 10^3/uL (0.0-0.8); Eosinophils % 6.7 %; Hemoglobin 9.6 g/dL (11.7-16.6); Lymphocytes # 0.9 10^3/uL (0.8-4.8); Mean Corpuscular Hemoglobin 28.3 pg (28.0-34.0); Mean Corpuscular Volume 88.5 fl (80-94); Mean Platelet Volume 11.2 fL (7.4-10.4); Monocytes # 0.5 10^3/uL (0.2-0.9); Monocytes % 11.9 %; Neutrophils # 2.22 10^3/uL (1.8-7.7); Neutrophils % 57.3 %; Nucleated Red Blood Cells % 0 %; Platelet Count 165 10^3/cmm (130-400); Red Blood Count 3.39 10^6/uL (4.1-5.3); Red Cell Distribution Width 17.9 % (12.1-15.1); White Blood Count 3.9 10^3/uL (4.0-10.0)
[2020-11-27 06:38] LABS: Alanine Aminotransferase 15 U/L (0-41); Albumin Level 3.5 g/dL (3.5-5.2); Alkaline Phosphatase 128 IU/L (40-130); Anion Gap 17.9 (5-19); Aspartate Amino Transferase 25 U/L (0-40); Blood Urea Nitrogen 31 mg/dL (8-23); Calcium 8.8 mg/dL (8.5-10.5); Carbon Dioxide 25 mmol/L (22-29); Chloride 97 mmol/L (98-107); Globulin 3.2 g/dL (1.3-4.6); Glucose 119 mg/dL (65-115); Magnesium 2.2 mg/dL (1.7-2.3); Osmolality Calculated 290 mOsm/kg (285-295); Phosphorus 4.1 mg/dL (2.5-4.5); Potassium 3.9 mmol/L (3.5-5.1); Sodium 136 mmol/L (136-145); Total Bilirubin 1.2 mg/dL (0.15-1.2); Total Protein 6.7 g/dL (6.6-8.7)
[2020-11-27 06:48] LABS: Glucose Point of Care 132 mg/dL (70-110)
--- NOTE | 2020-11-27 07:40 | P.PN_ITS ---
Subjective Subjective: Interval history: feels well. denies sob at rest. denies n/v/f/c/jewell/d. no orthopnea. Medications: Reviewed: Yes Medication Review Details: Current Medications Acetaminophen (Acetaminophen 325 Mg Tablet) 650 mg PO Q6H PRN PRN Reason: Mild/Mod Pain Or Temp >/= 101 Last Admin: 11/26/20 19:31 Dose: 650 mg Documented by: Apixaban (Apixaban 5 Mg Tablet) 2.5 mg PO BID@0900,2100 [facility] [place] Last Admin: 11/26/20 21:38 Dose: 2.5 mg Documented by: Atorvastatin Calcium (Atorvastatin 40 Mg Tablet) 20 mg PO DAILY [facility] Last Admin: 11/26/20 08:22 Dose: 20 mg Documented by: Dextrose (Dextrose 50% Syringe 50 Ml) 25 ml IVP ONCE PRN; Protocol PRN Reason: hypoglycemia protocol Dextrose (Dextrose 50% Syringe 50 Ml) 50 ml IVP PRN PRN; Protocol PRN Reason: hypoglycemia protocol Gabapentin (Gabapentin 100 Mg Capsule) 200 mg PO TID [facility] Glucagon (Glucagon 1 Mg/Ml Inj 1 Ml) 1 mg IM ONCE PRN; Protocol PRN Reason: Adult Acute Hypoglycemia Prot. Dextrose (D5w) 500 mls @ 100 mls/hr IV ONCE PRN; Protocol PRN Reason: Adult Acute Hypoglycemia Prot Ferric Sodium Gluconate 125 mg (/ Sodium Chloride) 110 mls @ 110 mls/hr IV Q24H [facility] [place] Stop: 12/03/20 08:59 Last Infusion: 11/26/20 09:46 Dose: Infused Documented by: Insulin Aspart (Insulin Aspart 100 Unit/1 Ml) 0 unit SUBCUT WM&BEDTIME [facility] [place]; Protocol Last Admin: 11/27/20 07:30 Dose: Not Given Documented by: Levothyroxine Sodium (Levothyroxine 100 Mcg Tablet) 100 mcg PO DAILY [facility] [place] Last Admin: 11/26/20 08:19 Dose: 100 mcg Documented by: Mupirocin (Mupirocin Oint 22 Gm) 1 applic TOPICAL BID [facility] [place] Last Admin: 11/26/20 18:07 Dose: 1 applic Documented by: Non-Formulary Medication (Pentoxifylline) 400 mg PO TID [facility] Ondansetron HCl (Ondansetron 2 Mg/Ml Sdv 2 Ml) 4 mg IVP Q8H PRN PRN Reason: vomiting, or N/V if npo Pantoprazole Sodium (Pantoprazole Dr 40 Mg Tablet) 40 mg PO BID [facility] [place] Last Admin: 11/26/20 18:05 Dose: 40 mg Documented by: Sacubitril/Valsartan (Sacubitril/Valsartan 24-26 Mg Tablet) 1 each PO DAILY [facility] Tamsulosin HCl (Tamsulosin 0.4 Mg Capsule) 0.4 mg PO DAILY [facility] Last Admin: 11/26/20 08:20 Dose: 0.4 mg Documented by: Vitals/I&O/Wt Last Vital Signs Temp 98.2 F 11/27/20 04:15 Pulse 75 11/27/20 04:50 Resp 18 11/27/20 04:15 BP 135/76 11/27/20 04:15 Pulse Ox 98 11/27/20 04:50 11/26/20 11/27/20 11/27/20 22:59 06:59 14:59 Intake Total 480 / 1430 240 / 1670 Output Total 300 / 300 370 / 670 Balance 180 / 1130 -130 / 1000 Physical Exam Narrative: EXAM NARRATIVE: comfortable , NARd, VSS henet- nc/at, eomi, anicteric neck- supple, no jvp lungs- bases dull heart- irreg, +RUSLAN, no rub, + s1, s2 abd soft, distended ext ankle edema b/l minimal neuro- a,a, o x 3, from x 4 Data : 11/27/20 05:31 11/27/20 05:31 A&P Additional A&P Information 75 yr old man 1. subacute renal failure- cr was 1 in June 2020- cr was 1.7 mg/dl on 10-31-20 prior to CTA, cr 1.8 on 11-20-20 and now cr 2.1 mg/dl -u/a 3+ blood, no prot. 5-10 rbc, 10-15 wbc, 0-4 sq epi -ur na 22- c/w prerenal azotemia - renal us -No renal obstruction or solid mass identified. Two simple cysts LEFT kidney are stable. -Mild diffuse bladder wall thickening. please have pt f/u w/ urology- as he has hematuria and bladder wall thickening -he follows w/ Dr. Chávez -restart low dose lasix -monitor chemistries, uop BRAIN- likely from diuretics/ wt loss from diuresis and CRS -as hematuria- check serologies - pending -pth 98 2. anemia- full eval- -low iron sat of 19% and ferritin 112- iv iron -f/u spep/ upep -normal free kappa/ lambda ratio 3. rt and left heart failure - cxr w/ Lungs: Hyperinflated lungs with diffuse haziness -a fib per medicine 4. dm control- hold metformin w/ BRAIN 5. chronic a fib- per medicine/ cardiology 6. meds reviewed -restart low dose lasix. hold kdur. I restarted entresto yesterday - monitor uop and renal fxn seen and examined w/ RN- telehealth visit time spent 30 minutes Attestations Medical Necessity Statement*: BRAIN, anemia, chf Time Spent in Patient Care: 16 - 35 minutes Coding Level of Care Code Acute Flux Core Welder for Myles Boo
[2020-11-27 07:54] VITALS: BP 132/71; PULSE 81; RESP 17; TEMP 36.6; O2SAT 96
[2020-11-27] MEDS: atorvastatin 40 mg Tablet 20 MG PO (08:36)
[2020-11-27] MEDS: FUROsemide 20 mg Tablet PO (08:36)
[2020-11-27] MEDS: pantoprazole DR 40 mg Tablet PO (08:36)
[2020-11-27] MEDS: tamsulosin 0.4 mg Capsule PO (08:36)
[2020-11-27] MEDS: levothyroxine 100 mcg Tablet PO (08:36)
[2020-11-27] MEDS: apixaban 5 mg Tablet 2.5 MG PO (08:36)
[2020-11-27] MEDS: mupirocin oint 22 gm 1 APPLIC TOPICAL (08:38)
[2020-11-27] MEDS: ferric gluconate 125 MG in sodium chloride 0.9% (100 ml) 100 ML 110 MG IV (09:29)
--- NOTE | 2020-11-27 11:40 | P.DS_ITS ---
Discharge Providers Date of Admission: 11/20/20 19:18 Date of Discharge: November 27, 2020 Attending Provider at Admission: Shani Galloway MD Attending Provider at Discharge: Sky Burden MD Primary Care Provider: Mary Lou Anaya MD Diagnoses at Discharge Discharge Diagnosis (1) BRAIN (acute kidney injury): Status: Acute (2) Acute exacerbation of CHF (congestive heart failure): Status: Acute Qualifiers: Heart failure type: systolic Qualified Code(s): I50.23 - Acute on chronic systolic (congestive) heart failure (3) Anasarca: Status: Acute (4) Volume overload: Status: Acute (5) Asymptomatic microscopic hematuria: Status: Acute (6) Venous ulcer of left leg: Status: Acute (7) Peripheral arterial disease: Status: Acute (8) Diabetic peripheral neuropathy associated with type 2 diabetes mellitus: Status: Acute (9) Status post cardiac pacemaker procedure: Status: Acute (10) Cardiomyopathy: Status: Acute Permanent problem details: Non ischemic Cradiomyopathy. (11) PAD (peripheral artery disease): Status: Acute Permanent problem details: Patient has two-vessel runoff on the left side and three-vessel runoff on the right side. He has mild to moderate diffuse peripheral arterial disease. Reason for Visit Reason for Visit: bloating from poss fluid Hospital Course Hospital Course This is a 75-year-old with a past medical history of nonischemic cardiomyopathy, systolic heart failure, chronic atrial fibrillation on Eliquis, pacemaker in place, atherosclerotic heart disease, peripheral arterial disease, hypertension, hyperlipidemia, chronic kidney disease stage unknown, chronic venous insufficiency, COPD, oak-[id number] type 2 diabetes mellitus, sleep apnea, who presents to [facility] from Dr. Roque's office due to worsening shortness of breath Patient was admitted to [facility] for acute on chronic exacerbation of systolic and diastolic CHF, he was diuresed as inpatient, negative fluid balance of 8 L, patient clinically improved, as of breath improved, lower extremity improved, discharged on Lasix 20 mg twice daily, fluid restrictions, with close follow-up with cardiology as outpatient Patient developed BRAIN on CKD stage unknown secondary to previous known azotemia during his hospitalization, likely secondary to diuresis, nephrology was consulted, diuretics was held, his creatinine and urine output improved. Patient will be discharged on Lasix 20 mg twice daily, with close follow-up primary care provider as outpatient for monitoring kidney function For venous stasis dermatitis, finished doxycycline Given patient's BRAIN as above, his creatinine on discharge 1.9, his BNP clearance was 40, GFR was 32, thus his Metformin and his glipizide have been temporarily discontinued. He can be discharged on Eliquis 5 mg twice daily. His alogliptin dose has been decreased to 12.5 mg daily. For his blood sugars I have discharged him on insulin sliding scale, monitor blood sugars carefully, inject insulin subcu before meals, diabetic education provided, monitor blood sugars closely, bring log to primary care physician's office, blood sugar less than 60 drink or juice or eat a hard candy go to emergency room, blood sugar in the 500 go to the emergency room. Physical Exam Const: COMMON NORMALS: no acute distress and patient oriented x3 Eye: COMMON NORMALS: Equal, round and reactive pupils present PUPIL: Yes Equal, round and reactive pupils present Neck/C-Spine: COMMON NORMALS: no lymphadenopathy and Thyroid normal THYROID: Thyroid normal Lymph: LYMPHATIC: no lymphadenopathy noted Resp: COMMON NORMALS: normal respiratory effort, No retractions, No use of accessory muscles and clear to auscultation bilaterally AUSCULTATION: clear to auscultation bilaterally Cardio: COMMON NORMALS: regular rate, regular rhythm, S1 normal heart sound present and S2 normal heart sound present RATE: regular rate RHYTHM: regular rhythm HEART SOUNDS: S1 normal heart sound present and S2 normal heart sound present GI: COMMON NORMALS: Normal to inspection, nondistended, normoactive bowel sounds present, Soft to palpation and non-tender PALPATION: Yes Soft to palpation Extremity: COMMON NORMALS: no pedal edema Neuro: COMMON NORMALS: patient oriented x3 Discharge Data Data Completed and Pending: Completed Studies During Hospitalization Category Date Time Status XR chest 1V lety ble [id number] Stat Exams 11/20/20 17:27 Completed XR chest 2V* [id number] Routine Exams 11/25/20 10:51 Completed NM pul vent and p erfus* [id number] Routi ne Nuc Med 11/25/20 07:26 [place] [id number] Routin e Ultrasound 11/22/20 18:37 Completed US renal BI* [id number] 0 Routine Ultrasound 11/25/20 08:47 Completed Pending at discharge Category Date Time Status SHENA Screen w/ Ref jayce Routine Lab 11/25/20 13:42 Results Anti-Neutrophil C ytoplasmic AB Rout ine Lab 11/25/20 13:42 Received Complete Blood Co unt w/Auto AM LABS Lab 11/28/20 04:00 Ordered Comprehensive Met abolic Panel AM LA BS Lab 11/28/20 04:00 Ordered KAPPA/LAMBDA LIGH T FREE SERUM Routi ne Lab 11/25/20 13:42 Results Fountain Free Light Chains Urine Routi ne Lab 11/25/20 12:00 Received Magnesium AM LABS Lab 11/28/20 04:00 Ordered Phosphorus AM LAB S Lab 11/28/20 04:00 Ordered Protein Electroph oresis, 24 HR Rout ine Lab 11/25/20 13:45 Received SS A Ro Sjogrens Antibody Routine Lab 11/25/20 13:42 Results Vitamin D 1,25 Di hydroxy Routine Lab 11/25/20 13:42 Received Labs from last 24 hours 11/27/20 11/27/20 11/27/20 06:33 05:31 05:31 WBC 3.9 L RBC 3.39 L Hgb 9.6 L Hct 30.0 L MCV 88.5 MCH 28.3 MCHC 32.0 RDW 17.9 H Plt Count 165 MPV 11.2 H Neut % (Auto) 57.3 Lymph % (Auto) 22.0 Garza % (Auto) 11.9 Eos % (Auto) 6.7 Baso % (Auto) 1.8 Neut # (Auto) 2.22 Lymph # (Auto) 0.9 Garza # (Auto) 0.5 Eos # (Auto) 0.3 Baso # (Auto) 0.1 Nucleated RBC % (a uto) 0 Nucleated RBCs # 0.0 Sodium 136 Potassium 3.9 Chloride 97 L Carbon Dioxide 25 Anion Gap 17.9 BUN 31 H Creatinine 1.9 H GFR Calculation Not Reportable Glucose 119 H POC Glucose 132 H Calculated Osmolal ity 290 Calcium 8.8 Phosphorus 4.1 Magnesium 2.2 Total Bilirubin 1.2 AST 25 ALT 15 Alkaline Phosphata se 128 Total Protein 6.7 Albumin 3.5 Globulin 3.2 Iudxo-7-Uievpixva Eajmc-6-Hzyxbtfjv Beta Globulins Isei-2-Tcnzadwm Usrv-1-Snlrpvfz Gamma Globulins Abnorm Protein Ban d 1 Ur Collection Dura tion Urine Total Volume Ur Creatinine 24 H our Ur Total Protein 2 4 Hr Protein/Creatinin Ratio Protein/Creat Rati o 24h Urine Albumin U Abnormal Prot Ba nd 1 U Abnormal Prot Ba nd 2 U Abnormal Prot Ba nd 3 Urine PEP Interpre t Pro Electrophoresi s Int Serum Immunofixati on SHENA Screen SS-A/Ro Antibody SS-B/La IgG Antibo dy Anti-ds DNA IgG Ab Free Fountain Light C hains Free Lambda Light Chain Free Fountain/Lambda Ratio 11/26/20 11/26/20 11/26/20 20:17 16:41 11:44 WBC RBC Hgb Hct MCV MCH MCHC RDW Plt Count MPV Neut % (Auto) Lymph % (Auto) Garza % (Auto) Eos % (Auto) Baso % (Auto) Neut # (Auto) Lymph # (Auto) Garza # (Auto) Eos # (Auto) Baso # (Auto) Nucleated RBC % (a uto) Nucleated RBCs # Sodium Potassium Chloride Carbon Dioxide Anion Gap BUN Creatinine GFR Calculation Glucose POC Glucose 159 H 164 H 228 H Calculated Osmolal ity Calcium Phosphorus Magnesium Total Bilirubin AST ALT Alkaline Phosphata se Total Protein Albumin Globulin Rjpxc-9-Zqbdilfoe Norte-2-Jlcjgxbqa Beta Globulins Hxmq-8-Sqqxsyjv Jfhi-7-Vamgfyux Gamma Globulins Abnorm Protein Ban d 1 Ur Collection Dura tion Urine Total Volume Ur Creatinine 24 H our Ur Total Protein 2 4 Hr Protein/Creatinin Ratio Protein/Creat Rati o 24h Urine Albumin U Abnormal Prot Ba nd 1 U Abnormal Prot Ba nd 2 U Abnormal Prot Ba nd 3 Urine PEP Interpre t Pro Electrophoresi s Int Serum Immunofixati on SHENA Screen SS-A/Ro Antibody SS-B/La IgG Antibo dy Anti-ds DNA IgG Ab Free Fountain Light C hains Free Lambda Light Chain Free Fountain/Lambda Ratio 11/25/20 11/25/20 11/25/20 13:45 13:42 13:42 WBC RBC Hgb Hct MCV MCH MCHC RDW Plt Count MPV Neut % (Auto) Lymph % (Auto) Garza % (Auto) Eos % (Auto) Baso % (Auto) Neut # (Auto) Lymph # (Auto) Garza # (Auto) Eos # (Auto) Baso # (Auto) Nucleated RBC % (a uto) Nucleated RBCs # Sodium Potassium Chloride Carbon Dioxide Anion Gap BUN Creatinine GFR Calculation Glucose POC Glucose Calculated Osmolal ity Calcium Phosphorus Magnesium Total Bilirubin AST ALT Alkaline Phosphata se Total Protein Albumin Globulin Yimew-7-Rjfrepxjk Pending Bbdbk-0-Qscpgswxh Pending Beta Globulins Pending Vqqn-1-Ktuvbbsh Jsee-5-Ursbgqtv Gamma Globulins Pending Abnorm Protein Ban d 1 Ur Collection Dura tion Pending Urine Total Volume Pending Ur Creatinine 24 H our Pending Ur Total Protein 2 4 Hr Pending Protein/Creatinin Ratio Pending Protein/Creat Rati o 24h Pending Urine Albumin Pending U Abnormal Prot Ba nd 1 Pending U Abnormal Prot Ba nd 2 Pending U Abnormal Prot Ba nd 3 Pending Urine PEP Interpre t Pending Pro Electrophoresi s Int Serum Immunofixati on SHENA Screen SS-A/Ro Antibody SS-B/La IgG Antibo dy <1.0 neg Anti-ds DNA IgG Ab 1 Free Fountain Light C hains Free Lambda Light Chain Free Fountain/Lambda Ratio 11/25/20 11/25/20 11/25/20 13:42 13:42 13:42 WBC RBC Hgb Hct MCV MCH MCHC RDW Plt Count MPV Neut % (Auto) Lymph % (Auto) Garza % (Auto) Eos % (Auto) Baso % (Auto) Neut # (Auto) Lymph # (Auto) Garza # (Auto) Eos # (Auto) Baso # (Auto) Nucleated RBC % (a uto) Nucleated RBCs # Sodium Potassium Chloride Carbon Dioxide Anion Gap BUN Creatinine GFR Calculation Glucose POC Glucose Calculated Osmolal ity Calcium Phosphorus Magnesium Total Bilirubin AST ALT Alkaline Phosphata se Total Protein Albumin 3.8 Globulin Ikqse-2-Cejhmcgjb 0.4 H Zsjqr-5-Ryelknven 0.8 Beta Globulins Tqnz-6-Lyrmtxfb 0.5 Gose-2-Lzfhosmh 0.5 Gamma Globulins 1.5 Abnorm Protein Ban d 1 Not Reportable Ur Collection Dura tion Urine Total Volume Ur Creatinine 24 H our Ur Total Protein 2 4 Hr Protein/Creatinin Ratio Protein/Creat Rati o 24h Urine Albumin U Abnormal Prot Ba nd 1 U Abnormal Prot Ba nd 2 Not Reportable U Abnormal Prot Ba nd 3 Not Reportable Urine PEP Interpre t Pro Electrophoresi s Int See note Serum Immunofixati on See note SHENA Screen Negative SS-A/Ro Antibody <1.0 neg SS-B/La IgG Antibo dy Anti-ds DNA IgG Ab Free Fountain Light C hains 92.3 H Free Lambda Light Chain 61.7 H Free Fountain/Lambda Ratio 1.50 Vitals: Last Vital Signs Temp 97.9 F 11/27/20 07:54 Pulse 81 11/27/20 07:54 Resp 17 11/27/20 07:54 BP 132/71 11/27/20 07:54 Pulse Ox 96 11/27/20 07:54 Discharge Plan Discharge Patient Disposition: Home Condition: Stable Prescriptions: New gabapentin 100 mg Capsule 200 mg PO TID 30 Days Qty: 180 RF: 0 furosemide 20 mg Tablet 20 mg PO BID@08,16 30 Days Qty: 60 RF: 0 insulin aspart U-100 [Novolog Flexpen U-100 Insulin] 100 unit/mL (3 mL) insulin pen See Rx Instructions .ROUTE .COMPLEX Qty: 15 RF: 0 Continued pentoxifylline 400 mg tablet extended release 400 mg PO TID RF: 0 levothyroxine 100 mcg capsule 100 mcg PO DAILY RF: 0 omeprazole 20 mg capsule,delayed release(DR/EC) 20 mg PO BID RF: 0 vitamin E (dl, acetate) 1,000 unit capsule 1,000 unit PO DAILY RF: 0 cinnamon bark [Cinnamon] 500 mg capsule 500 mg PO BID RF: 0 vitamin B complex Capsule 1 cap PO DAILY RF: 0 Eliquis 5 mg tablet 5 mg PO BID RF: 0 atorvastatin 40 mg tablet 20 mg PO DAILY RF: 0 oxycodone-acetaminophen 7.5-325 mg tablet 1 tab PO TID PRN (Reason: Pain) RF: 0 Fish Oil 1 cap PO BID RF: 0 Entresto 24-26 mg tablet 1 tab PO BID Qty: 60 RF: 0 potassium chloride [Klor-Con 10] 10 mEq tablet extended release 10 meq PO DAILY MDD see pharmacy comment Qty: 30 RF: 0 tamsulosin [Flomax] 0.4 mg capsule 0.4 mg PO DAILY Qty: 30 RF: 0 Changed alogliptin 25 mg tablet 12.5 mg PO DAILY Qty: 0 RF: 0 Held glipizide 10 mg tablet 20 mg PO BID RF: 0 Hold Instructions: Resume on 12/11/20. metformin 850 mg tablet 850 mg PO TID RF: 0 Hold Instructions: Resume on 06/23/20. Discontinued gabapentin 800 mg tablet 800 mg PO TID RF: 0 furosemide 20 mg tablet 60 mg PO DAILY Qty: 0 RF: 0 Discharge Orders: Discharge Order (Routine); Ordered 11/27/20 Ordered By: Sky Bertram Referrals: Luc Roque MD [Physician] - 4-7 days Mary Lou Anaya MD [Primary Care Provider] - Discharge Diet: Cardiac Discharge Activity: Resume usual activity Patient Instructions: Opioid Safety Activity Restrictions/Additional Instructions: -Please restrict fluid intake to 1500 mL daily -Please continue Lasix 20 mg twice daily -If you have worsening shortness of breath, swelling, lower extremity swelling go to emergency room -Given your kidney function, I have temporarily stopped Metformin and glipizide -Please follow-up with primary care provider to reinstitute Metformin and glipizide -On discharge her GFR is 32, your creatinine clearance is 40 -I we will have you follow-up with Dr. Roque as outpatient -I have reduced her dose of alogliptin down to 12.5 daily -As I have stopped Metformin and glipizide, we are going to have to monitor your blood sugars and control them with a NovoLog sliding scale which I provided -Please check your blood sugar before meals, inject insulin based on your blood sugar and the sliding scale provided -Do not inject insulin if you do not eat, as hypoglycemia is associated with morbidity and mortality -If your blood sugars greater than 500 call primary care if blood sugar is less than 60 drink or juice or eat a hard candy go to emergency room -Insulin sliding scale is provided as below Fingerstick Blood Glucose Insulin Units 141-180 mg/dl 2 unit/SQ 181-220 mg/dl 4 units/SQ 221-260 mg/dl 6 units/SQ 261-300 mg/dl 8 units/SQ 301-350 mg/dl 10 units/SQ 351-400 mg/dl 12 units/SQ greater than 400 mg/dl 14 units/SQ Discharge Attestations Time Spent in Discharge Care*: greater than 30 min Status at Discharge: Cognitive status at discharge: cognitively intact , Behavioral status at discharge: cooperative , Quality Metrics Clinical Quality Measures During this hospital stay, did patient experience: None Coding Level of Care Code Acute [facility] note Diagnoses BRAIN (acute kidney injury) N17.9 Acute exacerbation of CHF (congestive heart failure) I50.23 Heart failure type: systolic Anasarca R60.1 Volume overload E87.70 Asymptomatic microscopic hematuria R31.21 Venous ulcer of left leg I83.029; L97.929 Peripheral arterial disease I73.9 Diabetic peripheral neuropathy associated with type 2 diabetes mellitus E11.42 Status post cardiac pacemaker procedure Z95.0 Cardiomyopathy I42.9 PAD (peripheral artery disease) I73.9
--- NOTE | 2020-11-27 12:05 | PC.SOCIAL ---
IM follow up explained and copy provided to patient while on phone. He is happy to be going home today.
--- NOTE | 2020-11-27 14:03 | PC.NURSE ---
Discharge Note Patient discharged to home via private vehicle accompanied by . Discharge instructions reviewed with patient and/or hr representative. Mobile pharmacy medications and/or prescriptions provided. Belongings/home medications returned.
[2020-11-27 14:04] VITALS: BP 132/71; PULSE 81; RESP 17; TEMP 36.6; O2SAT 96
[2020-11-27 15:28] LABS: CREATININE, 24 HOUR URINE 1.02 g/24 h (0.50-2.15); PROTEIN, TOTAL, 24 HR UR 990 mg/24 h (<150); Protein/Creatinine Ratio 0.968 (< OR = 0.114); Protein/Creatinine Ratio 968 mg/g creat (< OR = 114)
[2020-11-28 12:08] LABS: ALBUMIN 52 %; ALPHA-1-GLOBULINS 7 %; ALPHA-2-GLOBULINS 11 %; BETA GLOBULINS 14 %; GAMMA GLOBULINS 16 %
[2020-11-29 11:48] LABS: ANCA Interp Negative (Negative)
[2020-12-01 06:28] LABS: Kappa Free Light Chains Urine 299.76 mg/L (<=32.90)
[2020-12-01 14:33] LABS: Vit D 1,25 (Oh)2, Total 13 pg/mL (18-72); Vit D2 1,25 (Oh)2 <8 pg/mL; Vit D3 1,25 (Oh)2 13 pg/mL
--- NOTE | 2020-12-01 15:40 | PC.SOCIAL ---
follow up discharge call made to patient. patient is feeling better, [facility]'t [facility] but should be getting them soon. patient is aware of all medications changes and held medications. has follow up appointment scheduled.
[2020-12-08 14:00] LABS: COLLECTION DURATION 24
== END 2020-11-27 13:30 | disposition home or self-care (01) | DRG 291 ==
LOC: ER 18:51 → MEDSURG 20:26
PROVIDERS: Internal Medicine; Internal Medicine Nephrology; Admitting Provider Student in an Organized Health Care Education/Training Program; Emergency Provider Emergency Medicine; PCP Family Medicine; Visit Provider Family Medicine
DX: I13.0 Hypertensive heart and chronic kidney disease with heart failure and stage 1 through stage 4 chronic kidney disease, or unspecified chronic kidney disease (principal); I50.23 Acute on chronic systolic (congestive) heart failure; N17.9 Acute kidney failure, unspecified; J96.11 Chronic respiratory failure with hypoxia; I48.20 Chronic atrial fibrillation, unspecified; L03.116 Cellulitis of left lower limb; L97.929 Non-pressure chronic ulcer of unspecified part of left lower leg with unspecified severity; N18.9 Chronic kidney disease, unspecified; E78.5 Hyperlipidemia, unspecified; G47.33 Obstructive sleep apnea (adult) (pediatric); I42.8 Other cardiomyopathies; I73.9 Peripheral vascular disease, unspecified; R60.1 Generalized edema; I83.029 Varicose veins of left lower extremity with ulcer of unspecified site; I87.8 Other specified disorders of veins; E11.42 Type 2 diabetes mellitus with diabetic polyneuropathy; E11.22 Type 2 diabetes mellitus with diabetic chronic kidney disease; E87.6 Hypokalemia; R31.21 Asymptomatic microscopic hematuria; N40.0 Benign prostatic hyperplasia without lower urinary tract symptoms; D64.9 Anemia, unspecified; I25.10 Atherosclerotic heart disease of native coronary artery without angina pectoris; Z20.822 Contact with and (suspected) exposure to COVID-19; Z95.0 Presence of cardiac pacemaker; Z79.890 Hormone replacement therapy; Z79.01 Long term (current) use of anticoagulants; Z90.49 Acquired absence of other specified parts of digestive tract; Z82.49 Family history of ischemic heart disease and other diseases of the circulatory system; Z83.3 Family history of diabetes mellitus; Z79.4 Long term (current) use of insulin
CPT/HCPCS: 36415; 36416; 71045; 71046; 76770; 78014; 80048; 80053; 81001; 82310; 82436; 82652; 82728; 82962; 83516; 83540; 83550; 83690; 83735; 83880; 83883; 83970; 84100; 84133; 84155; 84156; 84165; 84166; 84260; 84300; 84439; 84443; 84484; 85025; 85378; 85610; 85730; 86038; 86225; 86235; 86335; 86803; 87635; 93005; 93970; 94660; 96372; 96374; 97116; 97161; 99285; A9540; A9567; J1815; J1940; J2916; J7050; Q3014

== ENCOUNTER → 2020-12-04 13:26 | Outpatient (BNVA) | payer OTHER, SELFPAY | PROVIDERS: PCP Family Medicine; Visit Provider Anesthesiology Pain Medicine | DX: M25.551 Pain in right hip (principal); M19.021 Primary osteoarthritis, right elbow; M19.90 Unspecified osteoarthritis, unspecified site; M54.9 Dorsalgia, unspecified; M19.019 Primary osteoarthritis, unspecified shoulder; M25.9 Joint disorder, unspecified; M25.552 Pain in left hip; M19.079 Primary osteoarthritis, unspecified ankle and foot; I48.20 Chronic atrial fibrillation, unspecified; G62.9 Polyneuropathy, unspecified; Z79.891 Long term (current) use of opiate analgesic | CPT/HCPCS: 99214 ==

== ENCOUNTER → 2020-12-25 11:27 | Outpatient (BNVA) | payer OTHER, SELFPAY | PROVIDERS: PCP Family Medicine; Visit Provider Internal Medicine Pulmonary Disease | DX: Z01.812 Encounter for preprocedural laboratory examination (principal); Z20.822 Contact with and (suspected) exposure to COVID-19 | CPT/HCPCS: 87635 ==

== ENCOUNTER → 2020-12-30 15:19 | Outpatient (BNVA) | payer OTHER, SELFPAY | PROVIDERS: PCP Family Medicine; Visit Provider Internal Medicine Cardiovascular Disease | DX: I50.43 Acute on chronic combined systolic (congestive) and diastolic (congestive) heart failure (principal); I48.20 Chronic atrial fibrillation, unspecified; R06.02 Shortness of breath; I73.9 Peripheral vascular disease, unspecified; E11.42 Type 2 diabetes mellitus with diabetic polyneuropathy; I42.8 Other cardiomyopathies; Z79.01 Long term (current) use of anticoagulants | CPT/HCPCS: 80048; 83880; 85025 ==

== ENCOUNTER → 2021-01-06 09:44 | Outpatient (BNVA) | payer OTHER, SELFPAY | PROVIDERS: PCP Family Medicine; Visit Provider Internal Medicine Cardiovascular Disease | DX: I50.43 Acute on chronic combined systolic (congestive) and diastolic (congestive) heart failure (principal); I73.9 Peripheral vascular disease, unspecified | CPT/HCPCS: 80048; 83880 ==

== ENCOUNTER → 2021-01-19 09:52 | Outpatient (BNVA) | payer OTHER, SELFPAY | PROVIDERS: PCP Family Medicine; Visit Provider Internal Medicine Cardiovascular Disease | DX: I42.9 Cardiomyopathy, unspecified (principal); I50.43 Acute on chronic combined systolic (congestive) and diastolic (congestive) heart failure; I73.9 Peripheral vascular disease, unspecified; I25.10 Atherosclerotic heart disease of native coronary artery without angina pectoris | CPT/HCPCS: 80048; 83880 ==

== ENCOUNTER → 2021-01-29 13:39 | Outpatient (BNVA) | payer OTHER, SELFPAY | PROVIDERS: PCP Family Medicine; Visit Provider Anesthesiology Pain Medicine | DX: G89.29 Other chronic pain (principal); M25.511 Pain in right shoulder; M25.512 Pain in left shoulder; M25.551 Pain in right hip; M25.552 Pain in left hip; G62.9 Polyneuropathy, unspecified; M19.021 Primary osteoarthritis, right elbow; M19.90 Unspecified osteoarthritis, unspecified site; M54.9 Dorsalgia, unspecified; M25.9 Joint disorder, unspecified; M79.605 Pain in left leg; I48.20 Chronic atrial fibrillation, unspecified; I10 Essential (primary) hypertension; E78.5 Hyperlipidemia, unspecified; Z79.891 Long term (current) use of opiate analgesic | CPT/HCPCS: 99214 ==

== ENCOUNTER → 2021-03-24 09:44 | Outpatient (BNVA) | payer OTHER, SELFPAY | PROVIDERS: PCP Family Medicine; Visit Provider Anesthesiology Pain Medicine | DX: G89.29 Other chronic pain (principal); M25.551 Pain in right hip; M25.511 Pain in right shoulder; M25.9 Joint disorder, unspecified; I48.20 Chronic atrial fibrillation, unspecified; G62.9 Polyneuropathy, unspecified; M79.605 Pain in left leg; M19.021 Primary osteoarthritis, right elbow; M19.011 Primary osteoarthritis, right shoulder; M19.072 Primary osteoarthritis, left ankle and foot; M54.50 Low back pain, unspecified; Z79.891 Long term (current) use of opiate analgesic; Z79.899 Other long term (current) drug therapy | CPT/HCPCS: 99214 ==

== ENCOUNTER → 2021-04-02 10:02 | Outpatient (BNVA) | payer OTHER, SELFPAY | PROVIDERS: PCP Family Medicine; Referring Provider Family Medicine; Visit Provider Internal Medicine | DX: E11.42 Type 2 diabetes mellitus with diabetic polyneuropathy (principal); I73.9 Peripheral vascular disease, unspecified; I50.43 Acute on chronic combined systolic (congestive) and diastolic (congestive) heart failure; E78.5 Hyperlipidemia, unspecified; N18.9 Chronic kidney disease, unspecified; Z79.4 Long term (current) use of insulin | CPT/HCPCS: 99204 ==

== ENCOUNTER → 2021-05-19 10:34 | Outpatient (BNVA) | payer OTHER, SELFPAY | PROVIDERS: PCP Family Medicine; Visit Provider Anesthesiology Pain Medicine | DX: M19.011 Primary osteoarthritis, right shoulder (principal); M25.551 Pain in right hip; M79.605 Pain in left leg; G62.9 Polyneuropathy, unspecified; M25.9 Joint disorder, unspecified; I48.20 Chronic atrial fibrillation, unspecified; Z79.899 Other long term (current) drug therapy; Z79.891 Long term (current) use of opiate analgesic | CPT/HCPCS: 99214 ==

== ENCOUNTER → 2021-06-02 14:55 | Outpatient (BNVA) | payer OTHER, SELFPAY | PROVIDERS: PCP Family Medicine; Visit Provider Internal Medicine Cardiovascular Disease | DX: I50.43 Acute on chronic combined systolic (congestive) and diastolic (congestive) heart failure (principal); R06.02 Shortness of breath; Z79.01 Long term (current) use of anticoagulants; I42.8 Other cardiomyopathies; I10 Essential (primary) hypertension | CPT/HCPCS: 80048; 83880 ==

== ENCOUNTER → 2021-06-03 10:12 | Outpatient (BNVA) | payer OTHER, SELFPAY | PROVIDERS: PCP Family Medicine; Visit Provider Podiatrist Foot & Ankle Surgery | DX: L60.0 Ingrowing nail (principal); L97.522 Non-pressure chronic ulcer of other part of left foot with fat layer exposed | CPT/HCPCS: 73630; 87070; 87075; 87205 ==

== ENCOUNTER 2021-06-10 08:24 | Outpatient (CLI) | payer OTHER, SELFPAY | END 2021-06-10 08:25 | disposition home or self-care (01) | LOC: WOUND 08:25 | PROVIDERS: PCP Family Medicine; Visit Provider Thoracic Surgery (Cardiothoracic Vascular Surgery) | DX: Z09 Encounter for follow-up examination after completed treatment for conditions other than malignant neoplasm (principal) | CPT/HCPCS: 99213 ==

== ENCOUNTER → 2021-06-30 10:01 | Outpatient (BNVA) | payer OTHER, SELFPAY | PROVIDERS: PCP Family Medicine; Visit Provider Internal Medicine | DX: E11.42 Type 2 diabetes mellitus with diabetic polyneuropathy (principal); I25.10 Atherosclerotic heart disease of native coronary artery without angina pectoris; I50.33 Acute on chronic diastolic (congestive) heart failure; I73.9 Peripheral vascular disease, unspecified; E78.5 Hyperlipidemia, unspecified; N18.9 Chronic kidney disease, unspecified; Z79.4 Long term (current) use of insulin | CPT/HCPCS: 99214 ==

== ENCOUNTER → 2021-07-02 10:11 | Outpatient (BNVA) | payer OTHER, SELFPAY | PROVIDERS: PCP Family Medicine; Visit Provider Anesthesiology Pain Medicine | DX: G89.29 Other chronic pain (principal); M25.551 Pain in right hip; M25.511 Pain in right shoulder; M79.605 Pain in left leg; M19.072 Primary osteoarthritis, left ankle and foot; G62.9 Polyneuropathy, unspecified; M25.9 Joint disorder, unspecified; I48.20 Chronic atrial fibrillation, unspecified; Z79.899 Other long term (current) drug therapy; Z79.891 Long term (current) use of opiate analgesic | CPT/HCPCS: 99214 ==

== ENCOUNTER → 2021-07-30 09:48 | Outpatient (BNVA) | payer OTHER, SELFPAY | PROVIDERS: PCP Family Medicine; Visit Provider Anesthesiology Pain Medicine | DX: M25.551 Pain in right hip (principal); M25.552 Pain in left hip; M25.511 Pain in right shoulder; M25.512 Pain in left shoulder; M19.021 Primary osteoarthritis, right elbow; M25.9 Joint disorder, unspecified; I48.20 Chronic atrial fibrillation, unspecified; I50.9 Heart failure, unspecified; E11.42 Type 2 diabetes mellitus with diabetic polyneuropathy; Z79.899 Other long term (current) drug therapy; Z79.891 Long term (current) use of opiate analgesic | CPT/HCPCS: 99214 ==

== ENCOUNTER → 2021-09-15 10:18 | Outpatient (BNVA) | payer OTHER, SELFPAY | PROVIDERS: PCP Family Medicine; Visit Provider Anesthesiology Pain Medicine | DX: G62.9 Polyneuropathy, unspecified (principal); M19.021 Primary osteoarthritis, right elbow; M54.9 Dorsalgia, unspecified; M25.9 Joint disorder, unspecified; M25.551 Pain in right hip; M19.011 Primary osteoarthritis, right shoulder; M79.605 Pain in left leg; M19.072 Primary osteoarthritis, left ankle and foot; I48.20 Chronic atrial fibrillation, unspecified; Z79.899 Other long term (current) drug therapy; Z79.891 Long term (current) use of opiate analgesic | CPT/HCPCS: 99214 ==

== ENCOUNTER → 2021-09-30 09:05 | Outpatient (BNVA) | payer OTHER, SELFPAY | PROVIDERS: PCP Family Medicine; Visit Provider Internal Medicine | DX: E11.22 Type 2 diabetes mellitus with diabetic chronic kidney disease (principal); E11.59 Type 2 diabetes mellitus with other circulatory complications; E11.42 Type 2 diabetes mellitus with diabetic polyneuropathy; E78.5 Hyperlipidemia, unspecified; I73.9 Peripheral vascular disease, unspecified; N18.9 Chronic kidney disease, unspecified; Z79.4 Long term (current) use of insulin | CPT/HCPCS: 99214 ==

== ENCOUNTER → 2021-11-02 10:07 | Outpatient (BNVA) | payer OTHER, SELFPAY | PROVIDERS: PCP Family Medicine; Visit Provider Anesthesiology Pain Medicine | DX: M54.9 Dorsalgia, unspecified (principal); M25.9 Joint disorder, unspecified; M25.551 Pain in right hip; M19.011 Primary osteoarthritis, right shoulder; M19.021 Primary osteoarthritis, right elbow; M19.072 Primary osteoarthritis, left ankle and foot; M79.605 Pain in left leg; M25.572 Pain in left ankle and joints of left foot; G62.9 Polyneuropathy, unspecified; I48.20 Chronic atrial fibrillation, unspecified; Z79.899 Other long term (current) drug therapy; Z79.891 Long term (current) use of opiate analgesic | CPT/HCPCS: 99214 ==

== ENCOUNTER → 2021-11-30 10:21 | Outpatient (BNVA) | payer OTHER, SELFPAY | PROVIDERS: PCP Family Medicine; Visit Provider Anesthesiology Pain Medicine | DX: G62.9 Polyneuropathy, unspecified (principal); M19.021 Primary osteoarthritis, right elbow; M25.9 Joint disorder, unspecified; M19.011 Primary osteoarthritis, right shoulder; M79.605 Pain in left leg; M19.072 Primary osteoarthritis, left ankle and foot; M25.551 Pain in right hip; I48.20 Chronic atrial fibrillation, unspecified; Z79.891 Long term (current) use of opiate analgesic; Z79.899 Other long term (current) drug therapy | CPT/HCPCS: 99214 ==

== ENCOUNTER → 2021-12-03 10:12 | Outpatient (BNVA) | payer OTHER, SELFPAY | PROVIDERS: PCP Family Medicine; Visit Provider Internal Medicine Cardiovascular Disease | DX: I11.0 Hypertensive heart disease with heart failure (principal); I50.43 Acute on chronic combined systolic (congestive) and diastolic (congestive) heart failure; I48.20 Chronic atrial fibrillation, unspecified; Z79.01 Long term (current) use of anticoagulants; I25.10 Atherosclerotic heart disease of native coronary artery without angina pectoris; Z95.0 Presence of cardiac pacemaker; E11.42 Type 2 diabetes mellitus with diabetic polyneuropathy; Z79.4 Long term (current) use of insulin; I42.8 Other cardiomyopathies | CPT/HCPCS: 99214 ==

== ENCOUNTER → 2021-12-16 12:56 | Outpatient (BNVA) | payer OTHER, SELFPAY | PROVIDERS: PCP Family Medicine; Visit Provider Anesthesiology Pain Medicine | DX: M16.2 Bilateral osteoarthritis resulting from hip dysplasia (principal) | CPT/HCPCS: 20610; 77002; J1030; J3490 ==

== ENCOUNTER → 2021-12-28 11:06 | Outpatient (BNVA) | payer OTHER, SELFPAY | PROVIDERS: PCP Family Medicine; Visit Provider Anesthesiology Pain Medicine | DX: M79.605 Pain in left leg (principal); M19.072 Primary osteoarthritis, left ankle and foot; M19.011 Primary osteoarthritis, right shoulder; M25.551 Pain in right hip; G62.9 Polyneuropathy, unspecified; M54.9 Dorsalgia, unspecified; M25.9 Joint disorder, unspecified; I48.20 Chronic atrial fibrillation, unspecified; Z79.899 Other long term (current) drug therapy | CPT/HCPCS: 99214 ==

== ENCOUNTER → 2022-01-25 10:44 | Outpatient (BNVA) | payer OTHER, SELFPAY | PROVIDERS: PCP Family Medicine; Visit Provider Anesthesiology Pain Medicine | DX: G62.9 Polyneuropathy, unspecified (principal); M54.9 Dorsalgia, unspecified; M25.9 Joint disorder, unspecified; M25.551 Pain in right hip; M19.072 Primary osteoarthritis, left ankle and foot; M19.011 Primary osteoarthritis, right shoulder; M19.021 Primary osteoarthritis, right elbow; I48.20 Chronic atrial fibrillation, unspecified; Z79.899 Other long term (current) drug therapy; M79.605 Pain in left leg | CPT/HCPCS: 99214 ==

== ENCOUNTER → 2022-01-26 11:12 | Outpatient (BNVA) | payer OTHER, SELFPAY | PROVIDERS: PCP Family Medicine; Visit Provider Internal Medicine | DX: E11.42 Type 2 diabetes mellitus with diabetic polyneuropathy (principal); E11.59 Type 2 diabetes mellitus with other circulatory complications; E78.5 Hyperlipidemia, unspecified; I50.43 Acute on chronic combined systolic (congestive) and diastolic (congestive) heart failure; I73.9 Peripheral vascular disease, unspecified; N18.9 Chronic kidney disease, unspecified; Z79.4 Long term (current) use of insulin; Z79.84 Long term (current) use of oral hypoglycemic drugs | CPT/HCPCS: 99214 ==

== ENCOUNTER → 2022-02-22 11:30 | Outpatient (BNVA) | payer OTHER, SELFPAY | PROVIDERS: PCP Family Medicine; Visit Provider Anesthesiology Pain Medicine | DX: M25.551 Pain in right hip (principal); M25.511 Pain in right shoulder; M19.021 Primary osteoarthritis, right elbow; M79.605 Pain in left leg; G62.9 Polyneuropathy, unspecified; M25.9 Joint disorder, unspecified; I48.20 Chronic atrial fibrillation, unspecified; Z79.899 Other long term (current) drug therapy | CPT/HCPCS: 99214 ==

== ENCOUNTER → 2022-02-25 10:16 | Outpatient (BNVA) | payer OTHER, SELFPAY | PROVIDERS: PCP Family Medicine; Visit Provider Podiatrist Foot & Ankle Surgery | DX: Z79.4 Long term (current) use of insulin (principal); I73.9 Peripheral vascular disease, unspecified; I25.10 Atherosclerotic heart disease of native coronary artery without angina pectoris; I50.33 Acute on chronic diastolic (congestive) heart failure; E11.42 Type 2 diabetes mellitus with diabetic polyneuropathy | CPT/HCPCS: 11721 ==

== ENCOUNTER 2022-03-17 11:20 | Outpatient (CLI) | payer OTHER, SELFPAY ==
--- NOTE | 2022-03-17 11:00 | USCV_ITS ---
Refugio Amanda Age: 76 Gender: M : 1945 Exam Date: 03/17/2022 11:40 Ordering Phys: Luc Roque MD ([email or web address]) Technologist: LITO [place] [facility] [place]: LVEF ONLY BP: 117 / 63 HR: 58 Rhythm: Sinus Technical Quality: Adequate MEASUREMENTS (Male / Female) Normal Values 2D ECHO LVOT Diameter 2.0 cm LV Ejection Fraction MOD 2C 34.1 % LV Ejection Fraction 2C AL 39.2 % LA Diameter 5.0 cm LA Width 5.1 cm LA Height 7.7 cm RA Width 6.1 cm RA Height 7.5 cm Aorta at Sinotubular Diameter 2.4 cm IVC Diameter 3.1 cm M-MODE Aortic Annulus Diameter 3.4 cm LA Ao Ratio MM 1.5 MV E Point Septal Separation 1.3 cm DOPPLER Right Atrial Pressure 15.0 mmHg FINDINGS Left Ventricle Severe diffuse hypokinesia of the septum and the inferior wall segments. LV ejection fraction of 39.2% by MOD. Mildly dilated LV cavity Right Ventricle Mildly increased right ventricular size. Catheter/pacemaker wire in the right ventricular cavity. Right Atrium Moderately increased right atrial size. Catheter/pacemaker wire in the right atrial cavity. Left Atrium Moderately increased left atrial size. Mitral Valve No gross abnormalities noted Aortic Valve Thickened aortic valve. Tricuspid Valve No gross abnormalities noted Pulmonic Valve Pulmonic valve not well visualized. Pericardium No pericardial effusion. Aorta Normal aortic annulus size. IVC Dilated IVC with decreased respiratory variation. CONCLUSIONS Mildly dilated left-ventricular with diminished ejection fraction of 39.2%. Wall motion normalities as mentioned above. Moderate biatrial enlargement. Thickened aortic valve. Pacemaker/defibrillator wire in the right atrium and right ventricle Compared to the study from 06/04/2020, there may not be significant change Dr Luc Roque MD [facility] (Electronically Signed) Final Date: 19 March 2022 18:20 S
== END 2022-03-17 11:21 | disposition home or self-care (01) ==
PROVIDERS: PCP Family Medicine; Visit Provider Internal Medicine Cardiovascular Disease
DX: I42.8 Other cardiomyopathies; Z95.810 Presence of automatic (implantable) cardiac defibrillator; I35.8 Other nonrheumatic aortic valve disorders
CPT/HCPCS: 93308

== ENCOUNTER → 2022-03-18 13:09 | Outpatient (BNVA) | payer OTHER, SELFPAY | PROVIDERS: PCP Family Medicine; Visit Provider Anesthesiology Pain Medicine | DX: M54.16 Radiculopathy, lumbar region (principal); E11.42 Type 2 diabetes mellitus with diabetic polyneuropathy; M25.551 Pain in right hip; Z79.84 Long term (current) use of oral hypoglycemic drugs | CPT/HCPCS: 64483; 64484 ==

== ENCOUNTER → 2022-03-29 09:52 | Outpatient (BNVA) | payer OTHER, SELFPAY | PROVIDERS: PCP Family Medicine; Visit Provider Anesthesiology Pain Medicine | DX: G62.9 Polyneuropathy, unspecified (principal); M19.021 Primary osteoarthritis, right elbow; M25.9 Joint disorder, unspecified; M25.551 Pain in right hip; M19.011 Primary osteoarthritis, right shoulder; M19.072 Primary osteoarthritis, left ankle and foot; M79.605 Pain in left leg; I48.20 Chronic atrial fibrillation, unspecified; Z79.899 Other long term (current) drug therapy | CPT/HCPCS: 99214 ==

== ENCOUNTER → 2022-04-20 08:24 | Outpatient (BNVA) | payer OTHER, SELFPAY | PROVIDERS: PCP Family Medicine; Referring Provider Family Medicine; Visit Provider Orthopaedic Surgery | DX: M16.12 Unilateral primary osteoarthritis, left hip (principal) | CPT/HCPCS: 99203 ==

== ENCOUNTER → 2022-04-26 10:03 | Outpatient (BNVA) | payer OTHER, SELFPAY | PROVIDERS: PCP Family Medicine; Visit Provider Anesthesiology Pain Medicine | DX: M54.50 Low back pain, unspecified (principal); G62.9 Polyneuropathy, unspecified; M19.021 Primary osteoarthritis, right elbow; M25.551 Pain in right hip; M25.511 Pain in right shoulder; M19.071 Primary osteoarthritis, right ankle and foot; M25.9 Joint disorder, unspecified; I48.20 Chronic atrial fibrillation, unspecified; Z79.899 Other long term (current) drug therapy | CPT/HCPCS: 99214 ==

== ENCOUNTER → 2022-04-28 10:20 | Outpatient (BNVA) | payer OTHER, SELFPAY | PROVIDERS: PCP Family Medicine; Visit Provider Internal Medicine | DX: E11.42 Type 2 diabetes mellitus with diabetic polyneuropathy (principal); E11.59 Type 2 diabetes mellitus with other circulatory complications; I50.43 Acute on chronic combined systolic (congestive) and diastolic (congestive) heart failure; I73.9 Peripheral vascular disease, unspecified; E78.5 Hyperlipidemia, unspecified; Z79.4 Long term (current) use of insulin | CPT/HCPCS: 99214 ==

== ENCOUNTER → 2022-05-20 13:33 | Outpatient (BNVA) | payer OTHER, SELFPAY | PROVIDERS: PCP Family Medicine; Visit Provider Podiatrist Foot & Ankle Surgery | DX: E11.8 Type 2 diabetes mellitus with unspecified complications (principal); I73.9 Peripheral vascular disease, unspecified; I25.10 Atherosclerotic heart disease of native coronary artery without angina pectoris; I50.33 Acute on chronic diastolic (congestive) heart failure; E11.42 Type 2 diabetes mellitus with diabetic polyneuropathy; Z79.4 Long term (current) use of insulin | CPT/HCPCS: 11721 ==

== ENCOUNTER → 2022-05-24 10:24 | Outpatient (BNVA) | payer OTHER, SELFPAY | PROVIDERS: PCP Family Medicine; Visit Provider Anesthesiology Pain Medicine | DX: G62.9 Polyneuropathy, unspecified (principal); M19.021 Primary osteoarthritis, right elbow; M25.9 Joint disorder, unspecified; M25.551 Pain in right hip; M79.605 Pain in left leg; M19.071 Primary osteoarthritis, right ankle and foot; M19.011 Primary osteoarthritis, right shoulder; I48.20 Chronic atrial fibrillation, unspecified | CPT/HCPCS: 99214 ==

== ENCOUNTER → 2022-06-03 12:32 | Outpatient (BNVA) | payer OTHER, SELFPAY | PROVIDERS: PCP Family Medicine; Visit Provider Internal Medicine Cardiovascular Disease | DX: I48.20 Chronic atrial fibrillation, unspecified (principal); I42.8 Other cardiomyopathies; I50.43 Acute on chronic combined systolic (congestive) and diastolic (congestive) heart failure; I25.10 Atherosclerotic heart disease of native coronary artery without angina pectoris; E78.5 Hyperlipidemia, unspecified | CPT/HCPCS: 36415; 80048; 83880; 99214 ==

== ENCOUNTER → 2022-06-28 10:28 | Outpatient (BNVA) | payer OTHER, SELFPAY | PROVIDERS: PCP Family Medicine; Visit Provider Anesthesiology Pain Medicine | DX: M25.551 Pain in right hip (principal); M19.011 Primary osteoarthritis, right shoulder; M79.605 Pain in left leg; M19.072 Primary osteoarthritis, left ankle and foot; M25.9 Joint disorder, unspecified; I48.20 Chronic atrial fibrillation, unspecified; Z79.899 Other long term (current) drug therapy | CPT/HCPCS: 99214 ==

== ENCOUNTER → 2022-07-26 10:29 | Outpatient (BNVA) | payer OTHER, SELFPAY | PROVIDERS: PCP Family Medicine; Visit Provider Anesthesiology Pain Medicine | DX: G62.9 Polyneuropathy, unspecified (principal); M19.021 Primary osteoarthritis, right elbow; M19.90 Unspecified osteoarthritis, unspecified site; M54.9 Dorsalgia, unspecified; M25.9 Joint disorder, unspecified; M25.551 Pain in right hip; M79.605 Pain in left leg; M19.072 Primary osteoarthritis, left ankle and foot; M19.011 Primary osteoarthritis, right shoulder; I48.20 Chronic atrial fibrillation, unspecified; Z79.899 Other long term (current) drug therapy | CPT/HCPCS: 99214 ==

== ENCOUNTER → 2022-07-28 09:33 | Outpatient (BNVA) | payer OTHER, SELFPAY | PROVIDERS: PCP Family Medicine; Visit Provider Internal Medicine | DX: E11.621 Type 2 diabetes mellitus with foot ulcer (principal); L97.311 Non-pressure chronic ulcer of right ankle limited to breakdown of skin; I73.9 Peripheral vascular disease, unspecified; E78.5 Hyperlipidemia, unspecified; I87.2 Venous insufficiency (chronic) (peripheral); N18.9 Chronic kidney disease, unspecified; L60.3 Nail dystrophy; Z79.4 Long term (current) use of insulin; E11.42 Type 2 diabetes mellitus with diabetic polyneuropathy; E11.59 Type 2 diabetes mellitus with other circulatory complications; I50.43 Acute on chronic combined systolic (congestive) and diastolic (congestive) heart failure; I25.10 Atherosclerotic heart disease of native coronary artery without angina pectoris | CPT/HCPCS: 11721; 29580; 99214 ==

== ENCOUNTER → 2022-08-16 08:10 | Outpatient (BNVA) | payer OTHER, SELFPAY | PROVIDERS: PCP Family Medicine; Visit Provider Podiatrist Foot & Ankle Surgery | DX: I73.9 Peripheral vascular disease, unspecified (principal); E11.42 Type 2 diabetes mellitus with diabetic polyneuropathy; N18.9 Chronic kidney disease, unspecified; I87.2 Venous insufficiency (chronic) (peripheral); E11.22 Type 2 diabetes mellitus with diabetic chronic kidney disease; Z79.4 Long term (current) use of insulin | CPT/HCPCS: 99213 ==

== ENCOUNTER → 2022-08-23 10:03 | Outpatient (BNVA) | payer OTHER, SELFPAY | PROVIDERS: PCP Family Medicine; Visit Provider Podiatrist Foot & Ankle Surgery | DX: E11.42 Type 2 diabetes mellitus with diabetic polyneuropathy (principal); E11.22 Type 2 diabetes mellitus with diabetic chronic kidney disease; Z79.4 Long term (current) use of insulin; N18.9 Chronic kidney disease, unspecified; I87.2 Venous insufficiency (chronic) (peripheral) | CPT/HCPCS: 99214 ==

== ENCOUNTER → 2022-09-13 11:05 | Outpatient (BNVA) | payer OTHER, SELFPAY | PROVIDERS: PCP Family Medicine; Visit Provider Anesthesiology Pain Medicine | DX: G62.9 Polyneuropathy, unspecified (principal); M54.9 Dorsalgia, unspecified; M25.9 Joint disorder, unspecified; M25.551 Pain in right hip; M19.011 Primary osteoarthritis, right shoulder; M79.605 Pain in left leg; M19.072 Primary osteoarthritis, left ankle and foot; I48.20 Chronic atrial fibrillation, unspecified; Z79.899 Other long term (current) drug therapy | CPT/HCPCS: 99214 ==

== ENCOUNTER 2022-09-15 16:02 | Inpatient (IN) | payer OTHER, SELFPAY ==
[2022-09-15] VITALS (8 sets, daily range): BP systolic 107–140; BP diastolic 70–86; PULSE 58–76; RESP 18–25; TEMP 36.6–36.9; O2SAT 94–99; BMI 36.3
--- NOTE | 2022-09-15 16:29 | ED_ITS ---
HPI - SOB/Dyspnea General: Chief Complaint: Shortness of Breath/Dyspnea Stated Complaint: CHF decompensation Time Seen by Provider: 09/15/22 16:29 History of Present Illness: HPI Narrative: Patient presents to the ER with complaints of fluid overload causing shortness of breath and stating his water pill is not working. 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 Patient states he is fluid overloaded and swollen all over. Patient is currently taking Bumex 2 mg twice a day. And metolazone 5 mg every other day. MD elicited complaint: shortness of breath Pertinent past history: congestive heart failure and diabetes Onset (ago): week(s) (Been going downhill for a couple weeks) Timing: constant and progressively worsening Severity: mild Exacerbating factors: lying flat Relieving factors: nothing Known history of: congestive heart failure Treatment prior to arrival: none Review of Systems General: Reports: 10 or more systems reviewed and unremarkable except in HPI and below PFSH ED PFSH: Medical History Abdominal pain Abnormal nuclear stress test Acute exacerbation of CHF (congestive heart failure) Acute on chronic diastolic (congestive) heart failure Acute on chronic systolic heart failure BRAIN (acute kidney injury) Anasarca Asymptomatic microscopic hematuria Atherosclerotic heart disease Bradycardia Patient has a longstanding history of atrial fibrillation and bradycardia. Chest pain CHF (congestive heart failure) Chronic atrial fibrillation Patient is on long-term oral anticoagulation. Chronic venous insufficiency Cirrhosis COPD (chronic obstructive pulmonary disease) Diabetes Diverticulosis History of nonmelanoma skin cancer Hx of cardiac pacemaker Hyperlipidemia Hypertension Left upper quadrant pain detention (current) use of opiate analgesic Non-healing ulcer Onychodystrophy Osteomyelitis Right toe status post debridement and bone biopsy, [facility] 2018 PAD (peripheral artery disease) Patient has two-vessel runoff on the left side and three-vessel runoff on the right side. He has mild to moderate diffuse peripheral arterial disease. Pain management contract signed Sleep apnea SOB (shortness of breath) Patient is known to have COPD Varicose veins of bilateral lower extremities with other complications Surgical History History of hip surgery Hx of artificial lens replacement Hx of cataract extraction Hx of toe surgery Hx of tonsillectomy Family History Father , at age 57 Cancer Mother , at age 91 Cancer breast Other CAD (coronary artery disease) Diabetes Denies family history of Clotting disorder Dementia Chronic kidney disease (CKD) Suicide Anesthesia complication Bleeding disorder Lung disease Stroke Social History Smoking and tobacco status: never smoked Second hand smoke exposure: No Alcohol intake: never Substance/Drug Use: never Lives independently: Yes Household members: spouse Housing: House Marital status: Current occupational status: employed Physical Exam Const: COMMON NORMALS: no acute distress, average body habitus, patient oriented x3, no limitations, healthy appearing, alert and well nourished HENMT: COMMON NORMALS: normocephalic, atraumatic, hearing grossly normal bilaterally, external ears normal, Normal external nose present and moist oral mucous membranes HEAD & SCALP: normocephalic and atraumatic NOSE: Normal external nose present EXTERNAL EAR: Yes external ears normal Eye: COMMON NORMALS: Equal, round and reactive pupils present, EOMs intact bilaterally, conjunctivae normal and no scleral icterus CONJUNCTIVA: Yes conjunctivae normal PUPIL: Yes Equal, round and reactive pupils present Neck/C-Spine: COMMON NORMALS: full ROM, no lymphadenopathy, supple, no meningeal signs, no JVD and Thyroid normal THYROID: Thyroid normal Lymph: LYMPHATIC: no lymphadenopathy noted Chest: COMMONS NORMALS: normal inspection of the chest and normal palpation of entire chest wall Resp: EFFORT & INSPECTION: Yes able to speak in complete sentences and Yes symmetric chest movement AUSCULTATION: diminished lung sounds bilateral and diffuse Cardio: COMMON NORMALS: no JVD, regular rate, regular rhythm, S1 normal heart sound present, S2 normal heart sound present, No gallops present (Cardio) and No clicks present (Cardio) RATE: regular rate RHYTHM: regular rhythm HEART SOUNDS: S1 normal heart sound present, S2 normal heart sound present and Murmur heart sound present systolic GI: COMMON NORMALS: Normal to inspection, nondistended, normoactive bowel sounds present, Soft to palpation, non-tender, No hepatosplenomegaly present and no masses INSPECTION: Yes Abdominal wall edema and Yes abdominal distension PALPATION: Yes Soft to palpation and Yes No hepatosplenomegaly present : COMMON NORMALS: Yes no CVA tenderness BLADDER/KIDNEY EXAM: Yes no CVA tenderness Back/Pelvis: COMMON NORMALS: no CVA tenderness Extremity: NARRATIVE EXTREMITY EXAM: 1-2+ pitting edema bilateral lower extremities Neuro: COMMON NORMALS: patient oriented x3 SENSORIUM/ORIENTATION: Yes alert MENINGEAL SIGNS: Yes no meningeal signs Course Vital Signs: Vital signs: Vital Signs Temperature 97.8 F 09/15/22 16:06 Pulse Rate 62 09/15/22 19:15 Respiratory Rate 18 09/15/22 19:15 Blood Pressure 123/70 09/15/22 19:15 Pulse Oximetry 94 09/15/22 19:15 Oxygen Delivery Me thod Nasal Cannula 09/15/22 19:15 Oxygen Flow Rate 2 09/15/22 19:15 MDM - SOB/Dyspnea Medical Decision Making Patient presents to the ER with complaints of fluid overload edema and shortness of breath. Patient is a CHF patient is currently on 2 different diuretics. Patient reports weight gain of approximately 16 pounds in 2 pant sizes in the last several weeks. Lab work was obtained which did show an elevated BNP of 3599, as well as low potassium at 3.1 and elevated BUN/creatinine at 53 and 2.0. Chest x-ray did show mild pulmonary vascular congestion. Troponin was obtained as approximate 101 at baseline and 2-hour troponin was 98 for delta of -2. Patient was given 40 mg IV Lasix and a Douglas catheter was inserted which returned approximately 500 cc of urine during his hospital stay. Dr. Salazar was consulted who agreed to admit the patient for evaluation and treatment. Differential Diagnosis Likely congestive heart failure; Unlikely acute exacerbation of chronic obstructive airways disease, community acquired pneumonia, asthma with exacerbation or pulmonary embolism Medical Records I reviewed the patient's medical records. Lab Data I reviewed the patient's lab results. 09/15/22 16:30 09/15/22 16:30 Labs/Radiology: Radiology Impressions Chest X-Ray 09/15/22 16:30 IMPRESSION: 1. Cardiomegaly and mild pulmonary vascular congestion. 2. Pacemaker. Laboratory Results WBC 6.4 10^3/uL (4.0-10.0) 09/15/22 16:30 RBC 4.31 10^6/uL (4.1-5.3) 09/15/22 16:30 Hgb 12.3 g/dL (11.7-16.6) 09/15/22 16:30 Hct 37.3 % (42.0-52.0) L 09/15/22 16: MCV 86.5 fl (80-94) 09/15/22 16:30 MCH 28.5 pg (28.0-34.0) 09/15/22 16: MCHC 33.0 g/dL (30.0-36.0) 09/15/22 16:30 RDW 15.5 % (12.1-15.1) H 09/15/22 16:30 Plt Count 184 10^3/cmm (130-400) 09/15/22 16: MPV 11.1 fL (7.4-10.4) H 09/15/22 16:30 Neut % (Auto) 75.9 % 09/15/22 16:30 Lymph % (Auto) 12.8 % 09/15/22 16:30 [place] % (Auto) 8.3 % 09/15/22 16: Eos % (Auto) 1.7 % 09/15/22 16:30 Baso % (Auto) 0.8 % 09/15/22 16: Neut # (Auto) 4.86 10^3/uL (1.8-7.7) 09/15/22 16:30 Lymph # (Auto) 0.8 10^3/uL (0.8-4.8) 09/15/22 16:30 [place] # (Auto) 0.5 10^3/uL (0.2-0.9) 09/15/22 16:30 Eos # (Auto) 0.1 10^3/uL (0.0-0.8) 09/15/22 16:30 Baso # (Auto) 0.1 10^3/uL (0.0-0.1) 09/15/22 16: Nucleated RBC % (auto) 0 % 09/15/22: Nucleated RBCs # 0.0 /100WBC 09/15/22 16: PT 25.40 SECONDS (12.1-14.9) H 09/15/22 16:30 INR 2.21 (0.8-1.2) H 09/15/22 16:30 Sodium 131 mmol/L (136-145) L 09/15/22 16:30 Potassium 3.1 mmol/L (3.5-5.1) L 09/15/22 16:30 Chloride 87 mmol/L (98-107) L 09/15/22 16:30 Carbon Dioxide 29 mmol/L (22-29) 09/15/22 16:30 Anion Gap 18.1 (5-19) 09/15/22 16:30 BUN 53 mg/dL (8-23) H 09/15/22 16:30 Creatinine 2.0 mg/dL (0.7-1.2) H 09/15/22 16:30 GFR Calculation Not Reportable 09/15/22 16:30 Glucose 188 mg/dL (65-115) H 09/15/22 16:30 Calculated Osmolality 291 mOsm/kg (285-295) 09/15/22 16:30 Calcium 8.7 mg/dL (8.5-10.5) 09/15/22 16:30 Magnesium 2.2 mg/dL (1.7-2.3) 09/15/22 16:30 Total Bilirubin 1.8 mg/dL (0.15-1.2) H 09/15/22 16:30 AST 30 U/L (0-40) 09/15/22 16:30 ALT 11 U/L (0-41) 09/15/22 16:30 Alkaline Phosphatase 196 U/L (40-130) H 09/15/22 16:30 Troponin T Baseline 101 ng/L (0-15) H* 09/15/22 16:30 Troponin T 120 Minute 98.99 ng/L (0-15) H 09/15/22 18:30 Delta Troponin T -2.01 ABS# (0-10) L 09/15/22 18:30 NT-Pro-B Natriuret Pep 3599 pg/mL (0-450) H 09/15/22 16:30 Total Protein 6.9 g/dL (6.6-8.7) 09/15/22 16:30 Albumin 3.9 g/dL (3.5-5.2) 09/15/22 16:30 Globulin 3.0 g/dL (1.3-4.6) 09/15/22 16:30 EKG Data EKG 1: I personally reviewed and interpreted this EKG as follows: EKG Interpretation Date: 09/15/22 EKG interpretation time: 16:17 Prior EKG tracings: not available for review Interpretation: EKG showed ventricular rate of 61 beats a minute, QRS 222, QTc of 552, electronic ventricular pacemaker EKG 2: I personally reviewed and interpreted this EKG as follows: EKG Interpretation Date: 09/15/22 EKG interpretation time: 18:35 Prior EKG tracings: available for review Interpretation: EKG showed ventricular rate 66 beats a minute, QRS duration 138, QTc of 435, electronic ventricular pacemaker Discharge Plan Discharge Patient Disposition: Admitted As Inpatient Clinical Impression: CHF (congestive heart failure), Pulmonary vascular congestion, Edema Condition: Stable Prescriptions: No Action pentoxifylline 400 mg tablet extended release 400 mg PO TID omeprazole 20 mg capsule,delayed release(DR/EC) 20 mg PO BID vitamin E (dl, acetate) 1,000 unit capsule 1,000 unit PO DAILY Eliquis 5 mg tablet 5 mg PO BID cinnamon bark [Cinnamon] 500 mg capsule 500 mg PO BID PRN (Reason: unknown) atorvastatin 20 mg tablet 20 mg PO DAILY metolazone 5 mg tablet 5 mg PO .qod Entresto 97-103 mg tablet 1 tab PO BID Qty: 180 3RF gabapentin 800 mg tablet 800 mg PO TID guaifenesin [Mucinex] 600 mg tablet extended release 12hr 600 mg PO TID PRN (Reason: congestion) (DME) Dexcom G6 Sensor Device See Rx Instructions .Route Qty: 9 3RF Rx Instructions: [place] 10 [place] [place] Dexcom G6 Transmitter Device See Rx Instructions .Route Qty: 1 3RF Rx Instructions: change every 3 months oxycodone-acetaminophen 10-325 mg tablet 1 tab PO TID PRN (Reason: pain) 30 Days Qty: 90 0RF Rx Instructions: may fill 30 days after previous refill. Levemir FlexTouch U-100 Insuln 100 unit/mL (3 mL) insulin pen 25 unit SUBCUT DAILY (DME) diabetic shoes with 3 custom inserts See Rx Instructions .Route .MEDSUPPLY Qty: 1 0RF Rx Instructions: [place] directed [place] [place] Juzo compression wraps to right and left See Rx Instructions .Route .MEDSUPPLY Qty: 1 0RF Rx Instructions: [place] [place] Dexcom G6 [employer] Misc See Rx Instructions .Route Qty: 1 0RF Rx Instructions: Check BS 4-6 times a day. bumetanide 2 mg tablet 2 mg PO BID (DME) Juzo Lymphedema Wraps Bilaterally 2 pairs See Rx Instructions .Route .MEDSUPPLY Qty: 1 0RF Rx Instructions: As directed J P [employer] O Fish Oil Concentrate 1,000 mg Capsule 1,000 mg PO BID zinc acetate 50 mg (zinc) Capsule 50 mg PO DAILY levothyroxine 100 mcg Tablet 100 mcg PO QAM Novolog FlexPen U-100 Insulin 100 unit/mL (3 mL) Insulin Pen See Rx Instructions .ROUTE .COMPLEX Rx Instructions: sliding scale daily as needed for blood sugar acarbose 100 mg tablet 100 mg PO TID Rx Instructions: before meals (ac) Referrals: Mary Lou Anaya MD [Primary Care Provider] - Coding Level of Care Code ED Supervisor for Gabrielleg Rajeev
--- NOTE | 2022-09-15 16:30 | ECG_ITS ---
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 Measurements Intervals [place] Rate: 61 P: 0 CO: 0 QRS: -84 QRSD: 222 T: 91 QT: 545 QTc: 552 Interpretive Statements ELECTRONIC VENTRICULAR PACEMAKER Compared to ECG 11/20/2020 17:37:09 No significant changes Electronically Signed On 09-15-2022 18:19:23 CDT by Danny Blas M.D. [id number] f
--- NOTE | 2022-09-15 16:30 | XRR_ITS ---
PROCEDURE INFORMATION: Exam: XR Chest Exam date and time: 09/15/2022 4:33 PM Age: 76 years old Clinical indication: Dyspnea; Prior surgery; Surgery date: 6+ months; Surgery type: Pacer; Additional info: Dyspnea, chf, edema TECHNIQUE: Imaging protocol: Radiologic exam of the chest. Views: 1 view. COMPARISON: CR XR chest 2V* [id number] 11/25/2020 11:33 AM FINDINGS: Tubes, catheters and devices: Pacemaker. Lungs: See Heart/Mediastinum finding. Pleural spaces: Unremarkable. No pleural effusion. No pneumothorax. Heart/Mediastinum: Cardiomegaly and mild pulmonary vascular congestion. Bones/joints: Unremarkable. XR/XR chest 1V portable [id number] IMPRESSION: 1. Cardiomegaly and mild pulmonary vascular congestion. 2. Pacemaker.
[2022-09-15 16:41] LABS: Basophils # 0.1 10^3/uL (0.0-0.1); Basophils % 0.8 %; Eosinophils # 0.1 10^3/uL (0.0-0.8); Eosinophils % 1.7 %; Hematocrit 37.3 % (42.0-52.0); Hemoglobin 12.3 g/dL (11.7-16.6); Lymphocytes # 0.8 10^3/uL (0.8-4.8); Lymphocytes % 12.8 %; Mean Corpuscular Hemoglobin 28.5 pg (28.0-34.0); Mean Corpuscular Volume 86.5 fl (80-94); Mean Platelet Volume 11.1 fL (7.4-10.4); Monocytes # 0.5 10^3/uL (0.2-0.9); Monocytes % 8.3 %; Neutrophils # 4.86 10^3/uL (1.8-7.7); Neutrophils % 75.9 %; Nucleated Red Blood Cells % 0 %; Platelet Count 184 10^3/cmm (130-400); Red Blood Count 4.31 10^6/uL (4.1-5.3); Red Cell Distribution Width 15.5 % (12.1-15.1); White Blood Count 6.4 10^3/uL (4.0-10.0)
[2022-09-15 16:53] LABS: INR 2.21 (0.8-1.2)
--- NOTE | 2022-09-15 17:03 | PC.PHAR ---
pts verified pts medications pts states she knows what the pt takes [facility] list [facility]-still had pts sign paper [facility] -medications entered are all meds the pts states he takes no meds pull up on ext med history
[2022-09-15 17:04] LABS: Troponin(5th) Baseline 101 ng/L (0-15)
[2022-09-15 17:09] LABS: Alanine Aminotransferase 11 U/L (0-41); Albumin Level 3.9 g/dL (3.5-5.2); Alkaline Phosphatase 196 U/L (40-130); Anion Gap 18.1 (5-19); Aspartate Amino Transferase 30 U/L (0-40); Blood Urea Nitrogen 53 mg/dL (8-23); Calcium 8.7 mg/dL (8.5-10.5); Carbon Dioxide 29 mmol/L (22-29); Chloride 87 mmol/L (98-107); Glucose 188 mg/dL (65-115); Magnesium 2.2 mg/dL (1.7-2.3); NT Pro B Type Natriuretic Pept 3599 pg/mL (0-450); Osmolality Calculated 291 mOsm/kg (285-295); Potassium 3.1 mmol/L (3.5-5.1); Sodium 131 mmol/L (136-145); Total Bilirubin 1.8 mg/dL (0.15-1.2); Total Protein 6.9 g/dL (6.6-8.7)
[2022-09-15] MEDS: potassium chloride ER 20 mEq Tablet 40 MEQ PO (17:34)
[2022-09-15] MEDS: FUROsemide 10 mg/mL SDV 4mL 40 MG IVP ×2 (17:35→23:01)
--- NOTE | 2022-09-15 18:35 | ECG_ITS ---
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 Measurements Intervals [place] Rate: 66 P: 0 [place]: 0 QRS: -51 QRSD: 138 T: 152 QT: 422 QTc: 444 Interpretive Statements UNCERTAIN IRREGULAR RHYTHM ELECTRONIC VENTRICULAR PACEMAKER -- CONTOUR ANALYSIS BASED ON INTRINSIC RHYTHM RIGHT BUNDLE BRANCH BLOCK [120+ ms QRS DURATION, UPRIGHT V1, 40+ ms S IN I/aVL/V4/V5/V6] LEFT VENTRICULAR HYPERTROPHY AND ST-T CHANGE [VOLTAGE CRITERIA PLUS ST/T ABNORMALITY] POSSIBLE ANTERIOR MYOCARDIAL INFARCTION , OF INDETERMINATE AGE [30 ms Q WAVE IN V3/V4, OR R < 0.2 mV IN V4] INFERIOR MYOCARDIAL INFARCTION , OF INDETERMINATE AGE [40+ ms Q WAVE AND/OR ST/T ABNORMALITY IN II/aVF] ST DEPRESSION, CONSIDER SUBENDOCARDIAL INJURY [0.1+ mV ST DEPRESSION] Compared to ECG 09/15/2022 16:17:42 Right bundle-branch block now present Left ventricular hypertrophy now present ST (T wave) deviation now present Myocardial infarct finding now present Electronically Signed On 09-16-2022 15:43:48 CDT by Danny Blas M.D. [id number]
[2022-09-15 19:08] LABS: Troponin 5 2HR 98.99 ng/L (0-15)
[2022-09-15 19:15] LABS: Troponin 5 2HR Delta -2.01 ABS# (0-10)
--- NOTE | 2022-09-15 20:29 | PM.HP ---
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 He says he has been gaining weight since the last 3 weeks and the shortness of breath has just worsened. He has been feeling very short of breath and feels that his diuretic is not really working out for him. Patient has gained about 16 pounds in the last couple of weeks and has gone up to pant sizes. He has generalized anasarca and is fluid overloaded. He has been placed on Bumex 2 mg twice daily and metolazone 5 mg every other day. He did see cardiology earlier today. He also reported a low heart rate at that time. He is currently on Entresto 1 tablet twice a day. He has been bradycardic down to 30s to 40s and his pacemaker interrogation did not show any heart rate less than 60 which is a set rate for his device. He has been fatigued and has been having significant edema in his belly area as well. Visibly appears short of breath. February creatinine was 1.5 and BNP was 2400. He was advised to go to the emergency room for evaluation. Patient is also on Eliquis 5 mg twice daily. At this time he does have shortness of breath and has generalized anasarca. Denies nausea vomiting chest pain, abdominal pain, diarrhea, constipation. Also has significant lower extremity edema. Medications/Allergies Home Medications Medication Instructions Recorded Confirmed Last Taken Type apixaban 5 mg tablet (Eliquis) 5 mg PO BID 04/09/19 09/15/22 09/15/22 History omeprazole 20 mg capsule,delayed 20 mg PO BID 04/09/19 09/15/22 09/15/22 History release vitamin E (dl, acetate) 450 mg 1,000 unit PO DAILY 04/09/19 09/15/22 11/20/20 History (1,000 unit) capsule pentoxifylline 400 mg 400 mg PO TID 04/12/19 09/15/22 09/15/22 History tablet,extended release sacubitril 97 mg-valsartan 103 mg 1 tab PO BID #180 tabs 02/24/21 09/15/22 09/15/22 Rx tablet (Entresto) atorvastatin 20 mg tablet 20 mg PO DAILY 04/02/21 09/15/22 Unknown History metolazone 5 mg tablet 5 mg PO .qod 06/02/21 09/15/22 Unknown History blood-glucose meter,continuous #1 ea 09/09/21 09/15/22 Unknown Rx (Dexcom G6 Substance Abuse Clinician) diabetic shoes with 3 custom #1 ea 05/20/22 09/15/22 Unknown Rx inserts bumetanide 2 mg tablet 2 mg PO BID 06/07/22 09/15/22 09/15/22 History blood-glucose sensor (Dexcom G6 #9 ea 07/28/22 09/15/22 Unknown Rx Sensor device) blood-glucose transmitter (Dexcom #1 ea 07/28/22 09/15/22 Unknown Rx G6 Transmitter device) Juzo Lymphedema Wraps Bilaterally #1 ea 08/12/22 09/15/22 Unknown Rx 2 pairs Juzo compression wraps to right #1 ea 08/16/22 09/15/22 Unknown Rx and left oxycodone-acetaminophen 10 mg-325 1 tab PO TID PRN pain 30 days #90 09/13/22 09/15/22 Unknown Rx mg tablet tabs acarbose 100 mg tablet 100 mg PO TID 09/15/22 09/15/22 09/15/22 History cinnamon bark 500 mg capsule 500 mg PO BID PRN unknown 09/15/22 09/15/22 Unknown History (Cinnamon) gabapentin 800 mg tablet 800 mg PO TID 09/15/22 09/15/22 09/15/22 History guaifenesin 600 mg tablet, 600 mg PO TID PRN congestion 09/15/22 09/15/22 Unknown History extended release 12 hr (Mucinex) insulin aspart U-100 100 unit/mL See Rx Instructions .Route .COMPLEX 09/15/22 09/15/22 Unknown History (3 mL) subcutaneous pen (Novolog FlexPen U-100 Insulin aspart) insulin detemir U-100 100 unit/mL 25 unit SUBCUT DAILY 09/15/22 09/15/22 09/15/22 History (3 mL) subcutaneous pen (Levemir FlexTouch U-100 Insulin) levothyroxine 100 mcg tablet 100 mcg PO QAM 09/15/22 09/15/22 09/15/22 History omega-3 fatty acids 1,000 mg 1,000 mg PO BID 09/15/22 09/15/22 09/15/22 History capsule zinc acetate 50 mg (zinc) capsule 50 mg PO DAILY 09/15/22 09/15/22 Unknown History Allergies Allergy/AdvReac Type Severity Reaction Status Date / Time lisinopril Allergy Unknown Verified 09/15/22 08:40 PFSH Acute PFSH: Medical History Abdominal pain Abnormal nuclear stress test Acute exacerbation of CHF (congestive heart failure) Acute on chronic diastolic (congestive) heart failure Acute on chronic systolic heart failure BRAIN (acute kidney injury) Anasarca Asymptomatic microscopic hematuria Atherosclerotic heart disease Bradycardia Patient has a longstanding history of atrial fibrillation and bradycardia. Chest pain CHF (congestive heart failure) Chronic atrial fibrillation Patient is on long-term oral anticoagulation. 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 He has mild to moderate diffuse peripheral arterial disease. Pain management contract signed Sleep apnea SOB (shortness of breath) Patient is known to have COPD Varicose veins of bilateral lower extremities with other complications Surgical History History of hip surgery Hx of artificial lens replacement Hx of cataract extraction Hx of toe surgery Hx of tonsillectomy Family History Father , at age 57 Cancer Mother , at age 91 Cancer breast Other CAD (coronary artery disease) Diabetes Denies family history of Clotting disorder Dementia Chronic kidney disease (CKD) Suicide Anesthesia complication Bleeding disorder Lung disease Stroke Social History Smoking and tobacco status: never smoked Second hand smoke exposure: No Alcohol intake: never Substance/Drug Use: never Lives independently: Yes Household members: spouse Housing: House Marital status: Current occupational status: employed Vitals/I&O/Wt Last Vital Signs Temp 97.8 F 09/15/22 16:06 Pulse 69 09/15/22 20:02 Resp 22 H 09/15/22 20:02 BP 107/72 09/15/22 20:02 Pulse Ox 97 09/15/22 20:02 O2 Del Method Nasal Cannula 09/15/22 19:15 O2 Flow Rate 2 09/15/22 19:15 Weight last 48 hrs Weight 125.191 kg Physical Exam Narrative: General: Alert oriented x3, patient seen laying in bed on 2 L nasal cannula saturating 97%. No acute respiratory distress at this time. HEENT: Normocephalic, atraumatic, EOMI, Cardio: Regular rate rhythm, normal S1-S2 Respiratory: Crackles bilaterally at bases GI: Abdomen soft, nontender, distended, bowel sounds +, dependent area edema present. Behavior: Appropriate and cooperative Extremities: 2+ pitting edema bilateral lower extremity up to thighs. Urinary Catheter Management: Douglas: Cath Placed During This Visit: yes Reason for Continuing Indwelling Catheter: Accurate Measurement of Urinary Output in Critically Ill Patients Urinary Catheter Date of Insertion: 09/15/22 Urinary Catheter Time of Insertion: 17:52 Data 09/15/22 16:30 09/15/22 16:30 A&P Assessment and plan (1) Pulmonary vascular congestion: (2) Edema: Qualifiers: Edema type: unspecified Qualified Code(s): R60.9 - Edema, unspecified (3) CKD (chronic kidney disease): Qualifiers: Chronic kidney disease stage: unspecified stage Qualified Code(s): N18.9 - Chronic kidney disease, unspecified (4) CHF (congestive heart failure): Qualifiers: Heart failure type: unspecified Heart failure chronicity: acute on chronic Qualified Code(s): I50.9 - Heart failure, unspecified (5) Acute on chronic diastolic (congestive) heart failure: (6) Exertional dyspnea: (7) OSITO (obstructive sleep apnea): (8) Hypokalemia: Plan #Acute on chronic combined diastolic, systolic heart failure exacerbation #Atrial fibrillation, bradycardia status post pacemaker #BRAIN on CKD, possibly due to cardiorenal syndrome fluid overload #COPD #Diabetes mellitus, insulin-dependent #Hyperlipidemia #Hypertension #Peripheral arterial disease #Obstructive sleep apnea #Chronic anticoagulation #Hypokalemia #Elevated trop 2/2 demand ischemia ? Patient's BNP is 3500. He definitely is fluid overloaded clinically. He is on oral Bumex 2 mg twice daily and metolazone 5 mg every other day. ? We will place on Lasix 40 IV 3 times daily at this time. We will hold off on metolazone. It may be added as warranted ? Patient has gained 16 pounds over the last few weeks. He has gone up to pant sizes as well. Has 2+ pitting edema bilateral lower extremities up to thighs and abdominal wall edema and in dependent areas ? He will require IV diuresis in the hospital ? Place Douglas catheter for accurate output ? Potassium 3.1. Repleted with 40 IV in ER. ? Creatinine 2.0 today. Baseline 1.5. Possibly due to cardiorenal syndrome ? Placed on sliding scale insulin moderate dose intensity. Placed on Lantus 25 units daily ? Continue Eliquis 5 twice daily, atorvastatin, levothyroxine ? Dose reduce gabapentin due to BRAIN. He is on 800 3 times daily. We will reduce to 400 3 times daily at this time ? Blood pressure is soft at 107/58. We will hold Entresto for today. ? DuoNeb every 6 hours as needed ? Replete electrolytes as needed ? Strictly monitor BMP for electrolytes and kidney function daily - He has not had any chest pain. Initial troponin 100, delta troponin -2. This is most likely secondary to demand ischemia. I will hold off on therapeutic anticoagulation at this time with Lovenox or heparin drip. We will continue on Eliquis for now. Full code SCDs, Eliquis will suffice for DVT prophylaxis Attestations Medical Necessity Statement*: Expect greater than 72-hour stay for IV diuresis in hospital setting. Coding Level of Care Code G0426 (50 min) TH Encounter Time (min): 55 Patient seen via Telehealth in the acute care setting (hospital or ED location) by agreement and consent of patient or patient communications representative. Telehealth technology used during the visit includes video and audio. This patient encounter is appropriate and reasonable under the circumstances given the patient?s particular presentation at this time. The patient has been advised of the potential risks and limitations of this mode of treatment (including but not limited to the absence of in-person examination at this time) and has agreed to be treated by an off-site physician for this visit. If deemed clinically necessary from this telehealth visit, or if condition or consent for telehealth visit changes, an in-person visit will be arranged. For this encounter, total time for the origination of telehealth care on this date is as shown. Diagnoses Pulmonary vascular congestion R09.89 Edema R60.9 Edema type: unspecified CKD (chronic kidney disease) N18.9 Chronic kidney disease stage: unspecified stage CHF (congestive heart failure) I50.9 Heart failure type: unspecified Heart failure chronicity: acute on chronic Acute on chronic diastolic (congestive) heart failure I50.33 Exertional dyspnea R06.00 OSITO (obstructive sleep apnea) G47.33 Hypokalemia E87.6
--- NOTE | 2022-09-15 20:57 | USCV_ITS ---
Refugio Amanda Age: 76 Gender: M : 1945 Exam Date: 09/15/2022 21:36 Ordering Phys: Mary Salazar MD Technologist: BRITNI Exam Location: [facility] – [place] Indication: SOB, 16 lb wt gain in 2 weeks, s/p pacer 2017 BP: 107 / 72 HR: 69 Rhythm: paced, Atrial fibrillation Technical Quality: Adequate with [employer] MEASUREMENTS (Male / Female) Normal Values 2D ECHO LV Diastolic Diameter PLAX 6.0 cm 4.2 - 5.9 / 3.9 - 5.3 cm LV Systolic Diameter PLAX 4.3 cm IVS Diastolic Thickness 1.6 cm 0.6 - 1.0 / 0.6 - 0.9 cm IVS Systolic Thickness 2.0 cm LVPW Diastolic Thickness 0.9 cm 0.6 - 1.0 / 0.6 - 0.9 cm LVPW Systolic Thickness 1.4 cm LVOT Diameter 2.2 cm LV Ejection Fraction 2D Teich 54.4 % LV Ejection Fraction MOD 2C 17.6 % LV Ejection Fraction 2C AL 18.1 % LA Diameter 6.4 cm LA Width 5.9 cm LA Height 7.1 cm RA Width 6.9 cm RA Height 8.4 cm Aorta at Sinotubular Diameter 3.4 cm IVC Diameter 4.3 cm M-MODE LV Diastolic Diameter MM 6.3 cm 4.2 - 5.9 / 3.9 - 5.3 cm IVS Diastolic Thickness MM 1.7 cm 0.6 - 1.0 / 0.6 - 0.9 cm LVPW Diastolic Thickness MM 1.3 cm 0.6 - 1.0 / 0.6 - 0.9 cm Aortic Annulus Diameter 3.5 cm LA Ao Ratio MM 1.8 MV E Point Septal Separation 1.3 cm DOPPLER AV Peak Velocity 175.0 cm/s LVOT Peak Velocity 59.0 cm/s AV Area Cont Eq vti 1.4 cm squared AV Area Cont Eq pk 1.3 cm squared MV Peak Velocity 147.0 cm/s MV Area PHT 7.6 cm squared MV E' Velocity 61.0 cm/s Mitral E to MV E' Ratio 12.2 Mitral E to LV E' Lateral Ratio 8.4 Mitral E to LV E' Septal Ratio 22.2 TR Peak Velocity 300.5 cm/s TR Peak Gradient 36.1 mmHg TV Peak E Velocity 60.0 cm/s Right Atrial Pressure 15.0 mmHg Pulmonary Artery Systolic Pressu 51.1 mmHg PV Peak Velocity 83.0 cm/s RV Acceleration Time 0.1 s RV Ejection Time 0.3 s RV AcT/ET 0.3 FINDINGS Left Ventricle Left ventricle is dilated. LV systolic function is severely reduced with EF of 20 to 25%. Severe global hypokinesis seen. Right Ventricle RV is dilated and moderately hypokinetic. Right Atrium Dilated. Pacemaker lead is seen. Left Atrium Severely dilated Mitral Valve Mitral valve is thickened. Moderate to severe eccentric regurgitation. Aortic Valve Aortic valve is thickened and calcified. Mild aortic regurgitation. Tricuspid Valve Moderate tricuspid regurgitation. RVSP is 50 to 55 mmHg. This is consistent with moderate pulmonary hypertension. Pulmonic Valve Mild pulmonic regurgitation Pericardium Pleural effusion is noted Aorta Normal ascending aorta dimension. IVC Dilated. CONCLUSIONS Left ventricle is dilated. LV systolic function is severely reduced with EF of 20 to 25%. RV is dilated and moderately hypokinetic. Biatrial enlargement Moderate to severe eccenteric mitral regurgitation Mild aortic regurgitation Moderate tricuspid regurgitation. Moderate pulmonary hypertension Mild pulmonic regurgitation Pleural effusion is noted IVC is dilated Compared to prior echocardiogram from 03/2022, LV systolic function has decreased further and is 20-25% now. Danny Blas MD (Electronically Signed) Final Date: 16 September 2022 18:33 S
[2022-09-15 21:22] LABS: Procalcitonin 0.14 ng/mL (0-0.5)
--- NOTE | 2022-09-15 22:30 | ECG_ITS ---
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 Measurements Intervals Dwight Rate: 68 P: 56 LA: 202 QRS: 37 QRSD: 160 T: 213 QT: 438 QTc: 466 Interpretive Statements ELECTRONIC VENTRICULAR PACEMAKER -- CONTOUR ANALYSIS BASED ON INTRINSIC RHYTHM INTRAVENTRICULAR CONDUCTION DELAY [130+ ms QRS DURATION] ST DEPRESSION, CONSIDER SUBENDOCARDIAL INJURY [0.1+ mV ST DEPRESSION] Compared to ECG 09/15/2022 18:35:34 Intraventricular conduction delay now present Right bundle-branch block no longer present Left ventricular hypertrophy no longer present Myocardial infarct finding no longer present ST (T wave) deviation still present Electronically Signed On 09-16-2022 15:43:31 CDT by Danny Blas M.D. [email or web address]
[2022-09-15 22:33] LABS: Troponin 5 6HR 95.39 ng/L (0-15)
--- NOTE | 2022-09-15 22:34 | PC.NURSE ---
US staff member stated that patient needs to NPO for abdominal US.
[2022-09-15 22:37] LABS: Troponin 5 6HR Delta -5.61 ng/L (0-12)
[2022-09-16] VITALS (16 sets, daily range): BP systolic 124–157; BP diastolic 70–85; PULSE 58–78; RESP 16–28; TEMP 36.6–36.9; O2SAT 92–99
--- NOTE | 2022-09-16 04:37 | PC.NURSE ---
Patient asking for Oxy that he takes at home. Dr. Salazar notified. Home dose of Oxy x1 ordered.
[2022-09-16] MEDS: oxyCODONE-APAP 10-325 mg Tablet 1 TAB PO ×2 (04:41→19:30)
--- NOTE | 2022-09-16 05:30 | PC.NURSE ---
Addendum entered by Lizzette Watson RN 09/16/22 05:46: Morphine x1 ordered. Original Note: Patient is rating pain 8/[address] Salazar notified.
[2022-09-16] MEDS: levothyroxine 100 mcg Tablet PO (05:31)
[2022-09-16] MEDS: FUROsemide 10 mg/mL SDV 4mL 40 MG IVP ×3 (05:31→23:04)
[2022-09-16] MEDS: perflutren protein-a microsphr 0.22 mg/mL SDV 3 mL IV (05:41)
[2022-09-16] MEDS: morphine 4 mg/mL SDV 1 mL 2 MG IVP (05:50)
[2022-09-16 06:31] LABS: Basophils # 0.1 10^3/uL (0.0-0.1); Basophils % 0.9 %; Eosinophils # 0.2 10^3/uL (0.0-0.8); Eosinophils % 2.7 %; Hematocrit 37.3 % (42.0-52.0); Hemoglobin 12.1 g/dL (11.7-16.6); Lymphocytes % 14.1 %; Mean Corpuscular HGB Conc 32.4 g/dL (30.0-36.0); Mean Corpuscular Hemoglobin 29.4 pg (28.0-34.0); Mean Corpuscular Volume 90.5 fl (80-94); Mean Platelet Volume 11.8 fL (7.4-10.4); Monocytes # 0.8 10^3/uL (0.2-0.9); Monocytes % 11.2 %; Neutrophils # 4.79 10^3/uL (1.8-7.7); Neutrophils % 70.8 %; Nucleated Red Blood Cells % 0 %; Platelet Count 182 10^3/cmm (130-400); Red Blood Count 4.12 10^6/uL (4.1-5.3); Red Cell Distribution Width 15.9 % (12.1-15.1); White Blood Count 6.8 10^3/uL (4.0-10.0)
[2022-09-16 06:54] LABS: Blood Urea Nitrogen 58 mg/dL (8-23); Carbon Dioxide 30 mmol/L (22-29); Chloride 89 mmol/L (98-107); Glucose 168 mg/dL (65-115); Magnesium 2.2 mg/dL (1.7-2.3); Osmolality Calculated 296 mOsm/kg (285-295); Sodium 133 mmol/L (136-145)
[2022-09-16] MEDS: pantoprazole DR 40 mg Tablet PO (08:13)
[2022-09-16] MEDS: apixaban 5 mg Tablet PO ×2 (08:13→17:10)
[2022-09-16] MEDS: atorvastatin 40 mg Tablet PO (08:13)
[2022-09-16] MEDS: gabapentin 400 mg Capsule PO ×3 (08:13→21:56)
--- NOTE | 2022-09-16 10:54 | PC.CHAP ---
Pastoral Care Encounter/Spiritual Assessment Type of Contact [] Declined equine intern visit [] Patient/Family/Request visit [] Outpatient visit [] Follow-up visit [] Physician referral [] Code/Alert [x] Routine visit [] Staff referral [] Actively dying [] Patient sleeping [] Family support [] [] Out of room [] Palliative care [] [x] Receiving care in room [] Pre-surgical visit [] Trauma [] Long length of stay [] ICU visit [] Other: Relational/Emotional Strength [x] Patient feels connected with others/family/visitors/staff [] Distress [] Loneliness/isolation [] Abandonment Spirituality of Patient [x] Person of Isabel [] Attends Episcopal of their Isabel [x] Believes in Prayer [] Reads Bible or Holiness materials [] There are Spiritual issues to be addressed Associate Veterinarian Interventions [x] Prayer [x] Active listening [x] Non-anxious presence [x] Spiritual/emotional support [] Crisis/trauma care [x] Spiritual counseling [] Bereavement support [] Provided bereavement packet [] Provided Bible/devotional materials [] Provided toy/stuffed animal, coloring book to patient or family member [] Provided Communion [] Anointing/[place] [] Salvation [x] Completed spiritual assessment [] Other: Impact on Illness or Injury [] Angry [] Fearful [] Anxious [] Often cries [] Exhaustion [] Unable to work [] Unable to attend gnosticist [] Unable to walk/stand [] Unable to read [] Unable to drive [] Unable to eat/drink [] Unable to sleep [] Unable to be with family [] Patient intubated [] Other: Summary checking for loss of blood in some not sure what needs to be done waiting on doctors report has a good attitude not suer when well go home Time spent with patient 10 mins
--- NOTE | 2022-09-16 11:07 | PM.PN ---
Subjective Subjective: Refugio states he is still short of breath. History and physical reviewed. No chest pain. Reports he has gradually been more short of breath over the last 3 weeks. Medications: Reviewed: Yes Vitals/I&O/Wt Last Vital Signs Temp 97.9 F 09/16/22 07:59 Pulse 60 09/16/22 08:32 Resp 16 09/16/22 08:32 BP 127/84 09/16/22 07:59 Pulse Ox 93 09/16/22 08:32 O2 Del Method Nasal Cannula 09/16/22 08:32 O2 Flow Rate 2 09/16/22 08:32 FiO2 25 09/16/22 00:09 09/15/22 09/16/22 09/16/22 22:59 06:59 14:59 Intake Total 400 / 400 Output Total 600 / 600 1100 / 1700 Balance -600 / -600 -700 / -1300 Weight last 48 hrs Weight 125.191 kg Physical Exam Narrative: General exam is no distress Neck is supple Cardiovascular regular rate and rhythm with a 3/6 systolic murmur heard best in the mitral area Lungs diminished breath sounds bilaterally with few crackles Abdomen is slightly distended, question ascites Extremities 2+ edema bilaterally. Some erythema right lower extremity surrounding chronic induration. Urinary Catheter Management: Douglas: Cath Placed During This Visit: yes Reason for Continuing Indwelling Catheter: Accurate Measurement of Urinary Output in Critically Ill Patients Urinary Catheter Date of Insertion: 09/15/22 Urinary Catheter Time of Insertion: 17:52 Data 09/16/22 05:43 09/16/22 05:43 A&P Assessment and plan (1) CHF (congestive heart failure): Patient with evidence of acute systolic heart failure Await echocardiogram He may have some ascites related to heart failure as well. Ultrasound has been ordered Continue to diurese with IV Lasix 40 mg IV every 8 hours while monitoring renal function closely Fluid restrict Hold Entresto currently Qualifiers: Heart failure type: unspecified Heart failure chronicity: acute on chronic Qualified Code(s): I50.9 - Heart failure, unspecified (2) Hypokalemia: Supplement potassium Repeat potassium and magnesium level tomorrow (3) Cellulitis: Has what appears to be a small amount of cellulitis right lower extremity At this point try to manage with doxycycline p.o., as vancomycin could worsen renal function Daily clinical exam MRSA PCR (4) BRAIN (acute kidney injury): Patient with acute on chronic kidney injury Close follow-up with BMP daily Creatinine appears stable overnight Plan Elevated bilirubin level. Likely related to hepatic congestion. Repeat tomorrow. History of atrial fibrillation. Continue anticoagulation with Eliquis History of diabetes. Add sliding scale insulin Attestations Medical Necessity Statement*: Continued hospitalization for IV diuresis secondary to acute systolic heart failure Diagnoses CHF (congestive heart failure) I50.9 Heart failure type: unspecified Heart failure chronicity: acute on chronic Hypokalemia E87.6 Cellulitis L03.90 BRAIN (acute kidney injury) N17.9 Time Spent (min) 31
[2022-09-16] MEDS: doxycycline 100 mg Tablet PO ×2 (11:19→17:10)
[2022-09-16] MEDS: lidocaine 1% 5 ML in potassium chloride premix 100 ML 26.25 ML IV (14:59)
[2022-09-16] MEDS: potassium chloride ER 20 mEq Tablet 40 MEQ PO (14:59)
[2022-09-16] MEDS: insulin lispro 100 unit/1 mL SUBCUT ×2 (17:10→22:00)
[2022-09-16] MEDS: sennosides-docusate Tablet 2 TAB PO (17:11)
--- NOTE | 2022-09-16 20:37 | PC.NURSE ---
Patient has his own dexcom to monitor blood glucose. Patient requested for us to use his dexcom instead of fingerstick. Physician was notified and an order to use patients dexcom for glucose readings was given.
--- NOTE | 2022-09-16 20:38 | PC.NURSE ---
pt blood sugar was 223 @ 2038
--- NOTE | 2022-09-16 20:58 | US_ITS ---
WS: [id number] ULTRASOUND ABDOMEN CLINICAL INFORMATION: total bili elevated COMPARISON: None. FINDINGS: Difficult study due to body habitus and bowel gas. Liver Size: Cirrhotic Craniocaudal length: 17.7 cm. Echogenicity: Coarse heterogeneous Surface nodularity: Present Mass (size and location): None. Bile ducts Intrahepatic ducts: Normal. Common bile duct diameter: 0.7 cm. Gallbladder Cholelithiasis and sludge Gallstones: Present Gallbladder sludge: Present Gallbladder wall thickening: None. Pericholecystic fluid: None. Sonographic Moncada sign: Absent. Pancreas Not visualized. Heterogeneous spleen is not well visualized Splenomegaly: Upper limits of normal Craniocaudal length: 10.9 cm. Right kidney: Appears normal Hydronephrosis: None. Size: 10.6 cm x 5.7 cm x 4.7 cm Left kidney: Not seen due to bowel gas Abdominal aorta and IVC Visualized portions are normal. Ascites: Small amount of perihepatic ascites US/US abdomen complete* [id number] IMPRESSION: Technically difficult examination due to body habitus and bowel gas . 1. Coarse cirrhotic configuration to the liver. 2. Cholelithiasis and sludge. No evidence of acute cholecystitis. 3. No hydronephrosis in RIGHT kidney where visualized. 4. LEFT kidney not visualized due to bowel gas. 5. Pancreas not visualized. 6. Prominent common bile duct measuring 6.6 mm 7. Spleen is not well visualized but appears coarse heterogeneous. Perisplenic ascites.
[2022-09-17] VITALS (14 sets, daily range): BP systolic 102–138; BP diastolic 60–88; PULSE 57–72; RESP 15–24; TEMP 36.4–37; O2SAT 92–98
[2022-09-17] MEDS: morphine 4 mg/mL SDV 1 mL 2 MG IVP (00:19)
[2022-09-17 05:58] LABS: Basophils % 0.6 %; Eosinophils # 0.2 10^3/uL (0.0-0.8); Eosinophils % 3.4 %; Hemoglobin 12.3 g/dL (11.7-16.6); Lymphocytes # 1.2 10^3/uL (0.8-4.8); Mean Corpuscular HGB Conc 33.2 g/dL (30.0-36.0); Mean Corpuscular Hemoglobin 29.4 pg (28.0-34.0); Mean Corpuscular Volume 88.5 fl (80-94); Mean Platelet Volume 11.2 fL (7.4-10.4); Monocytes # 0.6 10^3/uL (0.2-0.9); Monocytes % 9.8 %; Neutrophils # 4.45 10^3/uL (1.8-7.7); Neutrophils % 67.9 %; Nucleated Red Blood Cells % 0 %; Platelet Count 168 10^3/cmm (130-400); Red Blood Count 4.18 10^6/uL (4.1-5.3); Red Cell Distribution Width 15.8 % (12.1-15.1); White Blood Count 6.6 10^3/uL (4.0-10.0)
[2022-09-17 06:20] LABS: Alanine Aminotransferase 10 U/L (0-41); Albumin Level 3.6 g/dL (3.5-5.2); Alkaline Phosphatase 173 U/L (40-130); Anion Gap 15.8 (5-19); Aspartate Amino Transferase 26 U/L (0-40); Blood Urea Nitrogen 64 mg/dL (8-23); Calcium 8.8 mg/dL (8.5-10.5); Carbon Dioxide 33 mmol/L (22-29); Chloride 90 mmol/L (98-107); Globulin 3.5 g/dL (1.3-4.6); Glucose 95 mg/dL (65-115); Magnesium 2.1 mg/dL (1.7-2.3); Osmolality Calculated 300 mOsm/kg (285-295); Sodium 136 mmol/L (136-145); Total Protein 7.1 g/dL (6.6-8.7)
[2022-09-17 06:47] LABS: Potassium 2.8 mmol/L (3.5-5.1)
[2022-09-17] MEDS: pantoprazole DR 40 mg Tablet PO (08:53)
[2022-09-17] MEDS: levothyroxine 100 mcg Tablet PO (08:53)
[2022-09-17] MEDS: potassium chloride ER 20 mEq Tablet 40 MEQ PO ×2 (08:53→17:58)
[2022-09-17] MEDS: apixaban 5 mg Tablet PO ×2 (08:53→17:57)
[2022-09-17] MEDS: atorvastatin 40 mg Tablet PO (08:53)
[2022-09-17] MEDS: sennosides-docusate Tablet 2 TAB PO ×2 (08:53→17:58)
[2022-09-17] MEDS: gabapentin 400 mg Capsule PO ×3 (08:53→21:25)
[2022-09-17] MEDS: lidocaine 1% 5 ML in potassium chloride premix 100 ML 26.25 ML IV ×2 (08:53→13:23)
[2022-09-17] MEDS: doxycycline 100 mg Tablet PO ×2 (08:53→17:57)
[2022-09-17] MEDS: oxyCODONE-APAP 10-325 mg Tablet 1 TAB PO (08:54)
--- NOTE | 2022-09-17 10:36 | P.PN_ITS ---
Subjective Subjective: Refugio reports that he is doing better. He feels less swollen. Abdomen is not as tight. He is still hoping he can have a bowel movement soon. No chest discomfort. Medications: Reviewed: Yes Vitals/I&O/Wt Last Vital Signs Temp 98.1 F 09/17/22 08:00 Pulse 62 09/17/22 08:00 Resp 18 09/17/22 08:54 BP 126/82 09/17/22 08:00 Pulse Ox 98 09/17/22 08:54 O2 Del Method Nasal Cannula 09/17/22 08:00 O2 Flow Rate 2 09/17/22 08:00 FiO2 25 09/17/22 01:52 09/16/22 09/17/22 09/17/22 22:59 06:59 14:59 Intake Total 465 / 825 120 / 945 240 / 240 Output Total 700 / 700 2000 / 2700 Balance -235 / 125 -1880 / -1755 240 / 240 Weight last 48 hrs Weight 125.191 kg Physical Exam Narrative: General exam is no distress Neck is supple Cardiovascular regular rate and rhythm with a 3/6 systolic murmur heard best in the mitral area Lungs diminished breath sounds bilaterally with few crackles Abdomen less distention Extremities 1+ edema bilaterally. Some erythema right lower extremity surrounding chronic induration. This is improved Urinary Catheter Management: Douglas: Cath Placed During This Visit: yes Reason for Continuing Indwelling Catheter: Other Urinary Catheter Date of Insertion: 09/15/22 Urinary Catheter Time of Insertion: 17:52 Data 09/17/22 05:06 09/17/22 05:06 A&P Assessment and plan (1) CHF (congestive heart failure): Patient with evidence of acute systolic heart failure Echocardiogram demonstrates reduced EF, 20 to 25% with moderate mitral regurgitation, hypokinetic RV, IVC dilation, moderate pulmonary hypertension and tricuspid regurgitation Abdominal ultrasound was as expected. Some cirrhotic liver, no evidence of acute cholecystitis, some perisplenic ascites. Continue to diurese with IV Lasix 40 mg IV every 8 hours while monitoring renal function closely. BMP daily Fluid restrict Hold Entresto currently Consider cardiology evaluation. This could be done near the end of his hospital course. Currently has heart failure still decompensated and needs further diuresis. Consideration could be made for plans of defibrillator secondary to low EF, synchronous pacemaker for further reduction in heart function, or potential investigation of decreased heart function with angiogram. Certainly his renal function may prohibit this currently. Qualifiers: Heart failure type: unspecified Heart failure chronicity: acute on chronic Qualified Code(s): I50.9 - Heart failure, unspecified (2) Hypokalemia: Supplement potassium IV and p.o. today. Recheck tomorrow (3) Cellulitis: Has what appears to be a small amount of cellulitis right lower extremity Currently on doxycycline. Slightly improved MRSA PCR pending (4) BRAIN (acute kidney injury): Patient with acute on chronic kidney injury Close follow-up with [facility] daily Creatinine appears stable overnight Plan Elevated bilirubin level. Likely related to hepatic congestion. Slightly higher, likely not clinically significant History of atrial fibrillation. Continue anticoagulation with Eliquis History of diabetes. Continue sliding scale insulin Attestations Medical Necessity Statement*: Needs continued hospitalization for further diuresis secondary to acute systolic heart failure Diagnoses CHF (congestive heart failure) I50.9 Heart failure type: unspecified Heart failure chronicity: acute on chronic Hypokalemia E87.6 Cellulitis L03.90 BRAIN (acute kidney injury) N17.9 Time Spent (min) 21
[2022-09-17] MEDS: insulin lispro 100 unit/1 mL SUBCUT ×3 (13:24→21:25)
[2022-09-17 19:27] LABS: Alanine Aminotransferase 10 U/L (0-41); Albumin Level 3.7 g/dL (3.5-5.2); Alkaline Phosphatase 174 U/L (40-130); Anion Gap 18.2 (5-19); Aspartate Amino Transferase 27 U/L (0-40); Blood Urea Nitrogen 67 mg/dL (8-23); Calcium 8.6 mg/dL (8.5-10.5); Carbon Dioxide 28 mmol/L (22-29); Chloride 90 mmol/L (98-107); Globulin 3.4 g/dL (1.3-4.6); Glucose 218 mg/dL (65-115); Osmolality Calculated 300 mOsm/kg (285-295); Potassium 4.2 mmol/L (3.5-5.1); Sodium 132 mmol/L (136-145); Total Bilirubin 1.7 mg/dL (0.15-1.2); Total Protein 7.1 g/dL (6.6-8.7)
--- NOTE | 2022-09-17 20:49 | PC.NURSE ---
At 20:48 patient's Dexcom read 210, charge nurse gave permission to use Dexcom.
[2022-09-17] MEDS: FUROsemide 10 mg/mL SDV 4mL 40 MG IVP (23:10)
[2022-09-18] VITALS (13 sets, daily range): BP systolic 123–157; BP diastolic 75–89; PULSE 60–85; RESP 15–22; TEMP 36.4–36.7; O2SAT 93–98
[2022-09-18 05:49] LABS: Basophils # 0.1 10^3/uL (0.0-0.1); Eosinophils # 0.3 10^3/uL (0.0-0.8); Eosinophils % 4.6 %; Hematocrit 37.3 % (42.0-52.0); Hemoglobin 11.9 g/dL (11.7-16.6); Lymphocytes # 1.1 10^3/uL (0.8-4.8); Lymphocytes % 17.5 %; Mean Corpuscular HGB Conc 31.9 g/dL (30.0-36.0); Mean Corpuscular Hemoglobin 28.5 pg (28.0-34.0); Mean Corpuscular Volume 89.2 fl (80-94); Mean Platelet Volume 11.7 fL (7.4-10.4); Monocytes # 0.7 10^3/uL (0.2-0.9); Monocytes % 11.1 %; Neutrophils # 3.97 10^3/uL (1.8-7.7); Neutrophils % 65.5 %; Nucleated Red Blood Cells % 0 %; Platelet Count 154 10^3/cmm (130-400); Red Blood Count 4.18 10^6/uL (4.1-5.3); Red Cell Distribution Width 15.8 % (12.1-15.1); White Blood Count 6.1 10^3/uL (4.0-10.0)
[2022-09-18] MEDS: levothyroxine 100 mcg Tablet PO (06:03)
[2022-09-18 06:06] LABS: Alanine Aminotransferase 12 U/L (0-41); Albumin Level 3.6 g/dL (3.5-5.2); Alkaline Phosphatase 194 U/L (40-130); Anion Gap 14.4 (5-19); Aspartate Amino Transferase 28 U/L (0-40); Blood Urea Nitrogen 73 mg/dL (8-23); Calcium 9.2 mg/dL (8.5-10.5); Carbon Dioxide 32 mmol/L (22-29); Chloride 92 mmol/L (98-107); Globulin 3.6 g/dL (1.3-4.6); Glucose 94 mg/dL (65-115); Osmolality Calculated 301 mOsm/kg (285-295); Potassium 3.4 mmol/L (3.5-5.1); Sodium 135 mmol/L (136-145); Total Bilirubin 1.8 mg/dL (0.15-1.2); Total Protein 7.2 g/dL (6.6-8.7)
[2022-09-18 06:22] LABS: Creatinine Clr Calc Pharmacy 50.4496
--- NOTE | 2022-09-18 07:52 | PM.PN ---
Subjective Subjective: seen at bedside this AM. pt on 2L NC. states he is feeling improved from yesterday. Continues to have bilateral leg pain but slowly improving. complaining of chronic hip pain from OA and desires pain management. Breathing has improved. tolerating PO. Denies CP, palpitations. Vitals/I&O/Wt Last Vital Signs Temp 98 F 09/18/22 07:34 Pulse 71 09/18/22 07:34 Resp 19 H 09/18/22 07:34 BP 128/81 09/18/22 07:34 Pulse Ox 94 09/18/22 07:34 O2 Del Method Room Air 09/18/22 07:34 O2 Flow Rate 2 09/17/22 20:00 FiO2 25 09/18/22 03:42 09/17/22 09/18/22 09/18/22 22:59 06:59 14:59 Intake Total 585 / 1050 Output Total 650 / 650 1150 / 1800 Balance -65 / 400 -1150 / -750 Physical Exam Narrative: General: AOx3, no acute distress, 2L NC, laying in bed psych: appropriate mood and affect. good judgment and insight. Head: atraumatic, normocephalic, no mass/lesions Ears: clear external auditory, Hearing intact Eyes: conjunctiva clear w/o exudate or hemorrhage. non-icteric, EOM intact, PERRLA. no signs of nystagmus Nose: nasal mucosa pink, septum midline Oropharynx: good dentition, Neck: FROM, no lymphadenopathy Chest: atraumatic, symmetrical CVD: RRR, normal S1 and S2, S3 audible, 2/6 diastolic ejection murmur. pulse x 4 extremities, no JVD, no carotid bruit. Lungs: bilateral crackles, diminished breath sounds. no rhonchi, wheezing, rales. Abdomen: NT, ND, soft, NABS. No hepatosplenomegaly, no mass. umbilicus midline w/o herniation : not done on todays examination Rectal: not done on todays examination Spine: no visible deformities, FROM, 5/5 strength, Extremities: FROM and 5/5 strength in BUE and BLE. ttp L hip. Neuro: CNII-XII grossly intact. No atrophy, weakness, tremors or clonus.? 2+ DTR, no sensory abnormalities. Skin:? bilateral venous stasis dermatitis with weeping. chronic induration. Urinary Catheter Management: Douglas: Cath Placed During This Visit: yes Reason for Continuing Indwelling Catheter: Acute Urinary Retention or Obstruction Urinary Catheter Date of Insertion: 09/15/22 Urinary Catheter Time of Insertion: 17:52 Data 09/18/22 04:53 09/18/22 04:53 Micro: Microbiology 09/16/22 11:16 MRSA Culture - Final Nose A&P Assessment and plan (1) CHF (congestive heart failure): Patient with evidence of acute systolic heart failure ECHO: reduced EF, 20 to 25% with moderate mitral regurgitation, hypokinetic RV, IVC dilation, moderate pulmonary hypertension and tricuspid regurgitation Abdominal ultrasound was as expected. Some cirrhotic liver, no evidence of acute cholecystitis, some perisplenic ascites. Currently diuresed with lasix 40mg IV q12hrs. de-escalated from q8hrs yday. renal function slowly improving. continue to monitor Fluid restrict Hold Entresto currently Consider cardiology evaluation. This could be done near the end of his hospital course. Currently has heart failure still decompensated and needs further diuresis. Consideration could be made for plans of defibrillator secondary to low EF, synchronous pacemaker for further reduction in heart function, or potential investigation of decreased heart function with angiogram. Certainly his renal function may prohibit this currently. Qualifiers: Heart failure chronicity: acute on chronic Heart failure type: unspecified Qualified Code(s): I50.9 - Heart failure, unspecified (2) Hypokalemia: will give additional KCL 40meq x 2 PO today recheck in AM (3) Cellulitis: Has what appears to be a small amount of cellulitis right lower extremity overlapping chronic venous dermatitis/stasis Currently on doxycycline. Slightly improved MRSA PCR NEGATIVE (4) BRAIN (acute kidney injury): BRAIN on CKD -improving. Cr improved from 1.9 to 1.7 -follow BMP in AM (5) Osteoarthritis: pain management restarted home pain regiment at 50% dosage Plan Elevated bilirubin level. Likely related to hepatic congestion. Slightly higher, likely not clinically significant History of atrial fibrillation. Continue anticoagulation with Eliquis History of diabetes. Continue sliding scale insulin plan: continue to slowly diures -monitor renal fnx -will need home health at time of discharge -consider cardiology consult tuesday as pt will lkely need another 24-28hrs prior to euvolemic state. -pain management -repleat potassium Attestations Medical Necessity Statement*: require further hospitalization for diuresis Coding Level of Care Code 53203 Diagnoses CHF (congestive heart failure) I50.9 Heart failure chronicity: acute on chronic Heart failure type: unspecified Hypokalemia E87.6 Cellulitis L03.90 BRAIN (acute kidney injury) N17.9 Osteoarthritis M19.90
[2022-09-18] MEDS: atorvastatin 40 mg Tablet PO (09:48)
[2022-09-18] MEDS: apixaban 5 mg Tablet PO ×2 (09:48→17:08)
[2022-09-18] MEDS: gabapentin 400 mg Capsule PO ×3 (09:48→20:09)
[2022-09-18] MEDS: doxycycline 100 mg Tablet PO ×2 (09:48→17:08)
[2022-09-18] MEDS: pantoprazole DR 40 mg Tablet PO (09:48)
[2022-09-18] MEDS: potassium chloride ER 20 mEq Tablet 40 MEQ PO ×2 (09:50→14:32)
[2022-09-18] MEDS: FUROsemide 10 mg/mL SDV 4mL 40 MG IVP ×2 (09:59→21:57)
[2022-09-18] MEDS: insulin lispro 100 unit/1 mL SUBCUT ×2 (13:02→20:09)
[2022-09-18] MEDS: oxyCODONE-APAP 5-325 mg Tablet 1 TAB PO (17:12)
--- NOTE | 2022-09-18 21:10 | PC.NURSE ---
Checked patient's blood sugar with Dexcom at 21:11, blood sugar read 315.
[2022-09-19] VITALS (12 sets, daily range): BP systolic 117–135; BP diastolic 65–76; PULSE 59–64; RESP 15–20; TEMP 36.4–36.8; O2SAT 91–99
[2022-09-19 04:42] LABS: Alanine Aminotransferase 10 U/L (0-41); Albumin Level 3.4 g/dL (3.5-5.2); Alkaline Phosphatase 202 U/L (40-130); Anion Gap 14.9 (5-19); Aspartate Amino Transferase 33 U/L (0-40); Blood Urea Nitrogen 80 mg/dL (8-23); Calcium 8.8 mg/dL (8.5-10.5); Carbon Dioxide 29 mmol/L (22-29); Chloride 92 mmol/L (98-107); Globulin 3.4 g/dL (1.3-4.6); Glucose 171 mg/dL (65-115); Osmolality Calculated 302 mOsm/kg (285-295); Potassium 3.9 mmol/L (3.5-5.1); Sodium 132 mmol/L (136-145); Total Bilirubin 1.6 mg/dL (0.15-1.2); Total Protein 6.8 g/dL (6.6-8.7)
[2022-09-19] MEDS: levothyroxine 100 mcg Tablet PO (05:36)
[2022-09-19] MEDS: oxyCODONE-APAP 5-325 mg Tablet 1 TAB PO (05:36)
--- NOTE | 2022-09-19 07:03 | PC.NURSE ---
At 0703 patients Dexcom read 117 for the glucose
[2022-09-19] MEDS: apixaban 5 mg Tablet PO ×2 (09:08→17:20)
[2022-09-19] MEDS: gabapentin 400 mg Capsule PO ×3 (09:08→21:03)
[2022-09-19] MEDS: pantoprazole DR 40 mg Tablet PO (09:08)
[2022-09-19] MEDS: doxycycline 100 mg Tablet PO ×2 (09:08→17:20)
[2022-09-19] MEDS: sennosides-docusate Tablet 2 TAB PO ×2 (09:08→17:21)
[2022-09-19] MEDS: FUROsemide 10 mg/mL SDV 4mL 40 MG IVP ×2 (09:09→21:08)
[2022-09-19] MEDS: atorvastatin 40 mg Tablet PO (09:09)
--- NOTE | 2022-09-19 09:51 | P.PN_ITS ---
Subjective Subjective: seen at bedside this AM. pt on 2L NC. states he is feeling improved from yesterday. slight improvement in SOB and swelling in legs. pain slightly improved when he elevated them. tolerating PO. Denies CP, palpitations. working with PT Medications: Reviewed: Yes Vitals/I&O/Wt Last Vital Signs Temp 97.6 F 09/19/22 08:00 Pulse 60 09/19/22 09:43 Resp 18 09/19/22 09:43 BP 123/72 09/19/22 08:00 Pulse Ox 93 09/19/22 09:43 O2 Del Method Nasal Cannula 09/19/22 09:43 O2 Flow Rate 2 09/19/22 09:43 FiO2 25 09/18/22 22:52 09/18/22 09/19/22 09/19/22 22:59 06:59 14:59 Intake Total 480 / 1320 240 / 240 Output Total 1200 / 1200 650 / 1850 Balance -720 / 120 -650 / -530 240 / 240 Physical Exam Narrative: General: AOx3, no acute distress, 2L NC, laying in bed psych: appropriate mood and affect. good judgment and insight. Head: atraumatic, normocephalic, no mass/lesions Ears: clear external auditory, Hearing intact Eyes: conjunctiva clear w/o exudate or hemorrhage. non-icteric, EOM intact, PERRLA. no signs of nystagmus Nose: nasal mucosa pink, septum midline Oropharynx: good dentition, Neck: FROM, no lymphadenopathy Chest: atraumatic, symmetrical CVD: RRR, normal S1 and S2, S3 audible, 2/6 diastolic ejection murmur. pulse x 4 extremities, no JVD, no carotid bruit. Lungs: faint bilateral crackles,. no rhonchi, wheezing, rales. Abdomen: NT, ND, soft, NABS. No hepatosplenomegaly, no mass. umbilicus midline w/o herniation : not done on todays examination Rectal: not done on todays examination Spine: no visible deformities, FROM, 5/5 strength, Extremities: FROM and 5/5 strength in BUE and BLE. ttp L hip. Neuro: CNII-XII grossly intact. No atrophy, weakness, tremors or clonus.? 2+ DTR, no sensory abnormalities. Skin:? bilateral venous stasis dermatitis with weeping. chronic induration. Urinary Catheter Management: Douglas: Cath Placed During This Visit: yes Reason for Continuing Indwelling Catheter: Acute Urinary Retention or Obstruct ion Urinary Catheter Date of Insertion: 09/15/22 Urinary Catheter Time of Insertion: 17:52 Data 09/18/22 04:53 09/19/22 04:00 A&P Assessment and plan (1) CHF (congestive heart failure): Patient with evidence of acute systolic heart failure ECHO: reduced EF, 20 to 25% with moderate mitral regurgitation, hypokinetic RV, IVC dilation, moderate pulmonary hypertension and tricuspid regurgitation Abdominal ultrasound was as expected. Some cirrhotic liver, no evidence of acute cholecystitis, some perisplenic ascites. Currently diuresed with lasix 40mg IV q12hrs. de-escalated from q8hrs y. renal function slowly improving. continue to monitor Fluid restrict Hold Entresto currently Consider cardiology evaluation. This could be done near the end of his hospital course. Currently has heart failure still decompensated and needs further diuresis. Consideration could be made for plans of defibrillator secondary to low EF, synchronous pacemaker for further reduction in heart function, or tiffanie lemus investigation of decreased heart function with angiogram. Certainly his renal function may prohibit this currently. Qualifiers: Heart failure chronicity: acute on chronic Heart failure type: unspecified Qualified Code(s): I50.9 - Heart failure, unspecified (2) Hypokalemia: resolved (3) Cellulitis: Has what appears to be a small amount of cellulitis right lower extremity overlapping chronic venous dermatitis/stasis Currently on doxycycline. Slightly improved MRSA PCR NEGATIVE (4) BRAIN (acute kidney injury): BRAIN on CKD -improving. Cr improved from 1.9 to 1.7 to 1.6 -follow BMP in AM (5) Osteoarthritis: pain management restarted home pain regiment at 50% dosage Plan Elevated bilirubin level. Likely related to hepatic congestion. Slightly higher, likely not clinically significant History of atrial fibrillation. Continue anticoagulation with Eliquis History of diabetes. Continue sliding scale insulin plan: continue to slowly diures -monitor renal fnx -will need home health at time of discharge -consider cardiology consult tuesday as pt will lkely need another 24-28hrs prior to euvolemic state. -pain management Attestations Medical Necessity Statement*: require further hospitalization for diuresis Coding Level of Care Code 34237 Diagnoses CHF (congestive heart failure) I50.9 Heart failure chronicity: acute on chronic Heart failure type: unspecified Hypokalemia E87.6 Cellulitis L03.90 BRAIN (acute kidney injury) N17.9 Osteoarthritis M19.90
--- NOTE | 2022-09-19 10:59 | PC.NURSE ---
Glucose reading 245 @ 11am
[2022-09-19] MEDS: insulin lispro 100 unit/1 mL SUBCUT ×3 (12:44→21:03)
--- NOTE | 2022-09-19 16:20 | PC.NURSE ---
Blood sugar is 200 @1620
[2022-09-20] VITALS (11 sets, daily range): BP systolic 104–143; BP diastolic 62–81; PULSE 60–68; RESP 16–21; TEMP 36.4–36.9; O2SAT 94–98
[2022-09-20 03:44] LABS: Alanine Aminotransferase 10 U/L (0-41); Albumin Level 3.3 g/dL (3.5-5.2); Alkaline Phosphatase 201 U/L (40-130); Anion Gap 12.6 (5-19); Aspartate Amino Transferase 36 U/L (0-40); Calcium 8.9 mg/dL (8.5-10.5); Carbon Dioxide 33 mmol/L (22-29); Chloride 92 mmol/L (98-107); Globulin 3.6 g/dL (1.3-4.6); Glucose 133 mg/dL (65-115); Osmolality Calculated 305 mOsm/kg (285-295); Potassium 3.6 mmol/L (3.5-5.1); Sodium 134 mmol/L (136-145); Total Bilirubin 1.5 mg/dL (0.15-1.2); Total Protein 6.9 g/dL (6.6-8.7)
[2022-09-20 04:13] LABS: Blood Urea Nitrogen 82 mg/dL (8-23)
[2022-09-20] MEDS: levothyroxine 100 mcg Tablet PO (06:15)
[2022-09-20] MEDS: oxyCODONE-APAP 5-325 mg Tablet 1 TAB PO ×3 (06:18→22:10)
--- NOTE | 2022-09-20 06:24 | PC.NURSE ---
pts Dexcom reads 141 for glucose at 0622.
[2022-09-20] MEDS: insulin lispro 100 unit/1 mL SUBCUT ×4 (07:52→22:11)
[2022-09-20] MEDS: doxycycline 100 mg Tablet PO ×2 (07:53→18:00)
[2022-09-20] MEDS: atorvastatin 40 mg Tablet PO (07:53)
[2022-09-20] MEDS: FUROsemide 10 mg/mL SDV 4mL 40 MG IVP ×2 (07:53→22:11)
[2022-09-20] MEDS: pantoprazole DR 40 mg Tablet PO (07:53)
[2022-09-20] MEDS: sennosides-docusate Tablet 2 TAB PO ×2 (07:53→17:59)
[2022-09-20] MEDS: gabapentin 400 mg Capsule PO ×3 (07:54→22:12)
[2022-09-20] MEDS: apixaban 5 mg Tablet PO (07:54)
--- NOTE | 2022-09-20 13:19 | PC.NURSE ---
Blood sugar is 299
--- NOTE | 2022-09-20 16:33 | PC.NURSE ---
256-2 blood glucose 227
--- NOTE | 2022-09-20 17:04 | P.PN_ITS ---
Subjective Subjective: No new complaints today. Continues to have lower extremity edema, at bedside states this is continuing to improve. Creatinine stable at 1.6. Net - 4.9 L since admission Medications: Reviewed: Yes Vitals/I&O/Wt Last Vital Signs Temp 97.7 F 09/20/22 16:00 Pulse 60 09/20/22 16:00 Resp 18 09/20/22 16:00 BP 134/78 09/20/22 16:00 Pulse Ox 98 09/20/22 16:00 O2 Del Method Nasal Cannula 09/20/22 16:00 O2 Flow Rate 2 09/20/22 08:00 FiO2 25 09/19/22 23:10 09/20/22 09/20/22 09/20/22 06:59 14:59 22:59 Intake Total 840 / 840 Output Total 900 / 2150 Balance -900 / -1430 840 / 840 Physical Exam Narrative: General: No acute distress, AO x3 HEENT: PERRLA, pupils bilaterally equal and reactive, pallors not present Chest: Normal vesicular breath sounds, no added sounds, equal good air entry bilaterally CVS: S1-S2 regular, no murmurs, no tachycardia, no gallops, no rubs Abdomen: Soft, nontender, no organomegaly, bowel sounds present Neuro: No focal deficits, no facial deformity, AO x3, power 5/5 in all limbs Extremities: Pitting edema bilateral lower extremities, bilateral stasis dermatitis. Urinary Catheter Management: Douglas: Cath Placed During This Visit: yes Reason for Continuing Indwelling Catheter: Acute Urinary Retention or Obstruction Urinary Catheter Date of Insertion: 09/15/22 Urinary Catheter Time of Insertion: 17:52 Data 09/18/22 04:53 09/20/22 03:00 A&P Assessment and plan (1) CHF (congestive heart failure): Patient with evidence of acute on chronic systolic heart failure ECHO: reduced EF, 20 to 25% with moderate mitral regurgitation, hypokinetic RV, IVC dilation, moderate pulmonary hypertension and tricuspid regurgitation. This is a change from previous echocardiogram in March 2022 which showed an EF of 39%. Currently diuresed with lasix 40mg IV q12hrs. overall net -4.9 L Kidneys appear to be tolerating current dose of Lasix. renal function slowly improving. continue to monitor Fluid restrict Hold Entresto currently Baseline troponin on admission was at 101, trending down at 2 hours at 98.9 and at 6-hour to 95. Elevated troponins likely related to demand ischemia from CHF vs NSTEMI D/c Eliquis, Change to lovenox 1mg/kg every 12 hrs Cardiology consult in view of reduced EF from prior, Consideration for defibrillator secondary to low EF, synchronous pacemaker for further reduction in heart function, or potential investigation of decreased heart function with angiogram if kidney function permits. Qualifiers: Heart failure type: unspecified Heart failure chronicity: acute on chronic Qualified Code(s): I50.9 - Heart failure, unspecified (2) Hypokalemia: resolved (3) Cellulitis: Has what appears to be a small amount of cellulitis right lower extremity overlapping chronic venous dermatitis/stasis Currently on doxycycline. This is improving (4) BRAIN (acute kidney injury): BRAIN on CKD -improving. Cr improved from 1.9 to 1.7 to 1.6 -follow BMP in AM (5) Osteoarthritis: pain management restarted home pain regiment at 50% dosage Plan Elevated bilirubin level. Likely related to hepatic congestion. Slightly higher, likely not clinically significant History of atrial fibrillation. History of diabetes. Continue sliding scale insulin Attestations Medical Necessity Statement*: continue iv diuresis, cardiology consult once more euvolemic to determine further steps for ischemic w/up, change eliquis to lovenox in case procedures needed Coding Level of Care Code Acute Code for Chg Fwd Moderate MDM includes number and complexity of problems actively addressed during encounter, amount and/or complexity of data reviewed/ordered and described risk of complication, morbidity or mortality of management as documented Diagnoses CHF (congestive heart failure) I50.9 Heart failure type: unspecified Heart failure chronicity: acute on chronic Hypokalemia E87.6 Cellulitis L03.90 BRAIN (acute kidney injury) N17.9 Osteoarthritis M19.90
[2022-09-20] MEDS: enoxaparin 40 mg/0.4 mL Syringe SUBCUT (18:37)
[2022-09-20] MEDS: enoxaparin 80 mg/0.8 mL Syringe SUBCUT (18:37)
[2022-09-21] VITALS (14 sets, daily range): BP systolic 113–129; BP diastolic 57–68; PULSE 59–75; RESP 14–23; TEMP 36.5–36.6; O2SAT 92–98
--- NOTE | 2022-09-21 04:00 | XR_ITS ---
WS: [id number] XR chest 1V portable [id number] REASON FOR EXAM: CHF FINDINGS: Cardiac device over the left chest with left subclavian vein leads to the right ventricular apex. Significant cardiomegaly. Enlarged Central pulmonary veins. Moderate peribronchial cuffing. Obscuration of the left costophrenic angle which may be due to lung consolidation and/or pleural effu shelli. XR/XR chest 1V portable [id number] IMPRESSION: Findings compatible with chronic congestive heart failure. The findings appear somewhat more prominent than on the examination of 09/25/2022.
[2022-09-21 05:07] LABS: Basophils # 0.1 10^3/uL (0.0-0.1); Basophils % 1.1 %; Eosinophils # 0.2 10^3/uL (0.0-0.8); Eosinophils % 4.1 %; Hematocrit 35.8 % (42.0-52.0); Hemoglobin 11.3 g/dL (11.7-16.6); Lymphocytes # 0.9 10^3/uL (0.8-4.8); Lymphocytes % 16.5 %; Mean Corpuscular HGB Conc 31.6 g/dL (30.0-36.0); Mean Corpuscular Hemoglobin 28.3 pg (28.0-34.0); Mean Corpuscular Volume 89.5 fl (80-94); Mean Platelet Volume 11.6 fL (7.4-10.4); Monocytes # 0.7 10^3/uL (0.2-0.9); Monocytes % 12.2 %; Neutrophils # 3.66 10^3/uL (1.8-7.7); Neutrophils % 65.7 %; Nucleated Red Blood Cells % 0 %; Platelet Count 166 10^3/cmm (130-400); Red Cell Distribution Width 15.9 % (12.1-15.1); White Blood Count 5.6 10^3/uL (4.0-10.0)
[2022-09-21 05:29] LABS: Alanine Aminotransferase 12 U/L (0-41); Albumin Level 3.3 g/dL (3.5-5.2); Alkaline Phosphatase 221 U/L (40-130); Anion Gap 15.6 (5-19); Aspartate Amino Transferase 30 U/L (0-40); Blood Urea Nitrogen 80 mg/dL (8-23); Calcium 8.7 mg/dL (8.5-10.5); Carbon Dioxide 30 mmol/L (22-29); Chloride 90 mmol/L (98-107); Globulin 3.7 g/dL (1.3-4.6); Glucose 143 mg/dL (65-115); Osmolality Calculated 301 mOsm/kg (285-295); Potassium 3.6 mmol/L (3.5-5.1); Sodium 132 mmol/L (136-145); Total Bilirubin 1.7 mg/dL (0.15-1.2)
[2022-09-21] MEDS: levothyroxine 100 mcg Tablet PO (05:30)
[2022-09-21] MEDS: enoxaparin 120 mg/0.8 mL Syringe SUBCUT ×2 (05:30→18:39)
[2022-09-21] MEDS: oxyCODONE-APAP 5-325 mg Tablet 1 TAB PO (05:41)
[2022-09-21] MEDS: acetaminophen 325 mg Tablet 650 MG PO (07:45)
[2022-09-21] MEDS: doxycycline 100 mg Tablet PO ×2 (08:05→18:39)
[2022-09-21] MEDS: sennosides-docusate Tablet 2 TAB PO ×2 (08:05→18:39)
[2022-09-21] MEDS: pantoprazole DR 40 mg Tablet PO (08:05)
[2022-09-21] MEDS: gabapentin 400 mg Capsule PO ×3 (08:05→21:26)
[2022-09-21] MEDS: insulin lispro 100 unit/1 mL SUBCUT ×4 (08:06→21:29)
[2022-09-21] MEDS: atorvastatin 40 mg Tablet PO (08:06)
[2022-09-21] MEDS: FUROsemide 10 mg/mL SDV 4mL 40 MG IVP (09:35)
--- NOTE | 2022-09-21 11:12 | ECG_ITS ---
[facility] Test Date: 2022-09-22 Pat Name: Refugio Amanda Department: Room: 256 Gender: Male Hotel [employer]: : [id number] Requested By: Shani Galloway Order Number: [id number] Viridiana MD: Danny Blas M.D. Interpretive Statements NAME OF STUDY: LEXISCAN SESTAMIBI STRESS TEST INDICATION: [type 2 SC, ] Procedure: At the baseline, the blood pressure was 158/82mmHg with a heart rate of 81 bpm. The electrocardiogram showed paced rhythm. The Lexiscan was infused over a period of 20 seconds. A total of 0.4 mg of Lexiscan was infused. The stress phase was continued for a total of 5 minutes. Heart rate was at the end of stress phase was 71 bpm and a blood pressure of 143/67 mmHg. The EKG at the peak infusion revealed no significant changes. Sestamibi was injected 20 seconds after the Lexiscan infusion. Blood pressure at the end of recovery phase was 164/113 mmHg with a heart rate of 74 bpm. Conclusion: 1. Normal EKG response to Lexiscan infusion 2. No Lexiscan induced chest pain or cardiac arrhythmia. 3. Normal blood pressure and heart rate response. 4. Sestamibi/sestamibi perfusion scan pending; see separate report. Electronically Signed On 10-01-2022 15:40:08 CDT by Danny Blas M.D. [email or web address]
[2022-09-21] MEDS: oxyCODONE-APAP 10-325 mg Tablet 1 TAB PO ×2 (12:13→18:39)
--- NOTE | 2022-09-21 16:46 | P.PN_ITS ---
Subjective Subjective: Patient is more tachypneic today compared to yesterday's exam. Lower extremity swelling is also worse compared to yesterday. He has been sitting in his chair for the last couple of hours. Supplemental O2 charted at 2 L/min, however in the room patient is on 5 L/min at this time. Urine output not charted for the last 24 hours. Reviewing previous values, patient appears to be net -3.7 L since admission. Medications: Reviewed: Yes Vitals/I&O/Wt Last Vital Signs Temp 97.7 F 09/21/22 11:20 Pulse 64 09/21/22 14:00 Resp 22 H 09/21/22 12:13 BP 122/62 09/21/22 11:20 Pulse Ox 98 09/21/22 12:13 O2 Del Method Nasal Cannula 09/21/22 11:20 O2 Flow Rate 2 09/21/22 11:20 FiO2 25 09/21/22 00:51 09/21/22 09/21/22 09/21/22 06:59 14:59 22:59 Intake Total 220 / 1540 480 / 480 Balance 220 / 1540 480 / 480 Physical Exam Narrative: General: No acute distress, AO x3 HEENT: PERRLA, pupils bilaterally equal and reactive, pallors not present Chest: Bilateral Rales to auscultation bilaterally diffusely, appear worse compared to yesterday's exam. CVS: S1-S2 regular, no murmurs, no tachycardia, no gallops, no rubs Abdomen: Soft, nontender, no organomegaly, bowel sounds present Neuro: No focal deficits, no facial deformity, AO x3, power 5/5 in all limbs Extremities: Bilateral lower extremity pitting edema, worsened compared to yesterday. Urinary Catheter Management: Douglas: Cath Placed During This Visit: yes Reason for Continuing Indwelling Catheter: Acute Urinary Retention or Obstruction Urinary Catheter Date of Insertion: 09/15/22 Urinary Catheter Time of Insertion: 17:52 Data 09/21/22 04:37 09/21/22 04:37 A&P Assessment and plan (1) CHF (congestive heart failure): Patient with evidence of acute on chronic systolic heart failure ECHO: reduced EF, 20 to 25% with moderate mitral regurgitation, hypokinetic RV, IVC dilation, moderate pulmonary hypertension and tricuspid regurgitation. This is a change from previous echocardiogram in March 2022 which showed an EF of 39%. Currently diuresed with lasix 40mg IV q12hrs. overall net -4.9 L Since cutting back Lasix from 40 mg IV every 8 hours to IV every 12 hours over the past 2 days, patient's breathing status has worsened. He appears to be more tachypneic today with a respiratory rate of 25 to 27/min. He also has worsening lower extremity edema today. We will change Lasix to 80 mg IV every 12 hour. Additional acetazolamide to 50 mg p.o. x1 today. Closely monitor kidney function. Currently creatinine is at recent baseline of 1.9. Continue to fluid restrict Patient's urine output has not been charted for the last 24 hours. Will discuss with nursing. Hold Entresto currently to allow room for increased dose of Lasix Baseline troponin on admission was at 101, trending down at 2 hours at 98.9 and at 6-hour to 95. Elevated troponins likely related to demand ischemia from CHF vs NSTEMI Continue lovenox 1mg/kg every 12 hrs, changed back to Eliquis when nearing discharge. Per review of past medical history, patient is known to have nonischemic cardiomyopathy. He last underwent a stress test in 2020 which showed multiple a reas of fixed and reversible defects. This was followed by an angiogram in 2020 which did not show significant obstructive disease. Patient was advised to continue medical management. We will aim to proceed with stress test once patient is able to tolerate lying flat. Based on results of stress testing we will consult cardiology. Qualifiers: Heart failure type: unspecified Heart failure chronicity: acute on chronic Qualified Code(s): I50.9 - Heart failure, unspecified (2) Hypokalemia: resolved (3) Cellulitis: Has what appears to be a small amount of cellulitis right lower extremity overlapping chronic venous dermatitis/stasis Currently on doxycycline. This is improving . No cellulitic changes currently (4) BRAIN (acute kidney injury): BRAIN on CKD \currently cr at 1.9 monitor closely with increased lasix today (5) Osteoarthritis: pain management optimize dosing to home medication 10/325 every 6 hrs Plan Elevated bilirubin level. Likely related to hepatic congestion. Slightly higher, likely not clinically significant History of atrial fibrillation. History of diabetes. Continue sliding scale insulin Attestations Medical Necessity Statement*: continued need for iv diuresis, planned stress test Coding Level of Care Code Acute Code for Chg Fwd High MDM includes number and complexity of problems actively addressed during encounter, amount and/or complexity of data reviewed/ordered and described risk of complication, morbidity or mortality of management as documented Diagnoses CHF (congestive heart failure) I50.9 Heart failure type: unspecified Heart failure chronicity: acute on chronic Hypokalemia E87.6 Cellulitis L03.90 BRAIN (acute kidney injury) N17.9 Osteoarthritis M19.90
[2022-09-21] MEDS: FUROsemide 10 mg/mL SDV 10mL 80 MG IVP (18:29)
[2022-09-22] VITALS (14 sets, daily range): BP systolic 100–164; BP diastolic 57–113; PULSE 58–82; RESP 16–23; TEMP 36.4–37.2; O2SAT 95–100
[2022-09-22 04:52] LABS: Basophils # 0.1 10^3/uL (0.0-0.1); Basophils % 0.9 %; Eosinophils # 0.2 10^3/uL (0.0-0.8); Eosinophils % 2.8 %; Hematocrit 35.8 % (42.0-52.0); Hemoglobin 11.5 g/dL (11.7-16.6); Lymphocytes # 0.9 10^3/uL (0.8-4.8); Lymphocytes % 15.1 %; Mean Corpuscular HGB Conc 32.1 g/dL (30.0-36.0); Mean Corpuscular Hemoglobin 28.7 pg (28.0-34.0); Mean Corpuscular Volume 89.3 fl (80-94); Mean Platelet Volume 11.6 fL (7.4-10.4); Monocytes # 0.7 10^3/uL (0.2-0.9); Monocytes % 12.4 %; Neutrophils # 3.85 10^3/uL (1.8-7.7); Neutrophils % 68.3 %; Nucleated Red Blood Cells % 0 %; Platelet Count 157 10^3/cmm (130-400); Red Blood Count 4.01 10^6/uL (4.1-5.3); Red Cell Distribution Width 15.9 % (12.1-15.1); White Blood Count 5.6 10^3/uL (4.0-10.0)
[2022-09-22 05:17] LABS: Alanine Aminotransferase 11 U/L (0-41); Albumin Level 3.3 g/dL (3.5-5.2); Alkaline Phosphatase 188 U/L (40-130); Anion Gap 14.4 (5-19); Aspartate Amino Transferase 26 U/L (0-40); Blood Urea Nitrogen 79 mg/dL (8-23); Calcium 8.5 mg/dL (8.5-10.5); Carbon Dioxide 30 mmol/L (22-29); Chloride 91 mmol/L (98-107); Globulin 3.4 g/dL (1.3-4.6); Glucose 155 mg/dL (65-115); Osmolality Calculated 301 mOsm/kg (285-295); Potassium 3.4 mmol/L (3.5-5.1); Sodium 132 mmol/L (136-145); Total Bilirubin 1.4 mg/dL (0.15-1.2); Total Protein 6.7 g/dL (6.6-8.7)
[2022-09-22 05:21] LABS: Creatinine Clr Calc Pharmacy 50.4496
[2022-09-22] MEDS: FUROsemide 10 mg/mL SDV 10mL 80 MG IVP ×2 (05:44→17:02)
[2022-09-22] MEDS: enoxaparin 120 mg/0.8 mL Syringe SUBCUT ×2 (05:44→17:01)
[2022-09-22] MEDS: regadenoson 0.4 Mg/5 ml Syringe IVP (07:52)
--- NOTE | 2022-09-22 08:00 | NMCV_ITS ---
NM maury perf SPECT r/s* [id number] Refugio Amanda Age: 76 Gender: M : 1945 Exam Date: 09/22/2022 06:52 Ordering Phys: Shani Galloway MD Technologist: YAMILET Fountain Exam Location: [facility] Indications: CP STRESS TEST Please see separate stress test report in [facility] for full findings IMAGE PROTOCOL Rest/Stress 1 Lexiscan Day Radiopharmaceutical Dose (mCi) Administration Site Administered by Rest: Tc-99m 10.9 IV YAMILET Fountain Sestamibi Stress:Tc-99m 33.0 IV YAMILET Fountain Sestamibi Rest: 22-Sep-2022 60 Discovery 630 Stress: 22-Sep-2022 30 Discovery 630 0.4mg Lexiscan. Supine position only as patient was unable to lay prone. SPECT RESULTS Technical Quality: Good Raw Data Analysis: Normal Image Corrections: No attenuation or motion correction applied Summed Stress Score: 17 Summed Rest Score: 14 Summed Difference Score: 3 PERFUSION FINDINGS There is partially reversible perfusion defect noted in apical wall. This is consistent with the small sized prior infarct with minimal darron-infarct ischemia in LAD territory. Medium sized area of fixed perfusion defect is seen in inferior wall. This is consistent with medium sized prior infarct in the RCA territory. There is a large in size partially reversible perfusion defect noted in inferolateral and anterolateral hutchinson. This is consistent with large area of prior infarct with darron-infarct ischemia in left circumflex artery territory. FUNCTIONAL RESULTS (calculated via Gated SPECT) Stress Image LV EF (%): 44 Stress EDV (mL):198 TID: 1.09 Stress ESV (mL):110 FUNCTIONAL FINDINGS: LV systolic function is mild to moderately reduced. IMPRESSIONS 1. Abnormal myocardial perfusion imaging with medium sized area of prior infarct in RCA territory. 2. Large area of prior infarct with darron-infarct ischemia seen in left circumflex artery territory. 3. Small area of prior infarct with darron-infarct ischemia is seen in LAD territory. 4. LV systolic function is mild to moderately reduced. Danny Blas MD (Electronically Signed) Final Date: 22 September 2022 12:37 S
[2022-09-22] MEDS: atorvastatin 40 mg Tablet PO (10:05)
[2022-09-22] MEDS: pantoprazole DR 40 mg Tablet PO (10:06)
[2022-09-22] MEDS: gabapentin 400 mg Capsule PO ×3 (10:07→20:17)
[2022-09-22] MEDS: doxycycline 100 mg Tablet PO ×2 (10:07→17:01)
[2022-09-22] MEDS: sennosides-docusate Tablet 2 TAB PO ×2 (10:08→17:01)
[2022-09-22] MEDS: insulin lispro 100 unit/1 mL SUBCUT ×3 (11:40→20:17)
[2022-09-22] MEDS: oxyCODONE-APAP 10-325 mg Tablet 1 TAB PO ×2 (11:40→20:16)
--- NOTE | 2022-09-22 12:54 | PC.SOCIAL ---
IMM Updated Updated pt on IMM. No questions voiced. Provided pt a copy. Initialed, dated, & timed copy in chart.
--- NOTE | 2022-09-22 15:45 | PM.PN ---
Subjective Subjective: Patient is less tachypneic today. Kidney function is stable. Urine output 1L over last 24 hrs. LE edema unchanged. Underwent stress test this morning which showed abnormal perfusion imaging with medium sized area of infarct in the RCA territory, large area of prior infarct with darron-infarct ischemia in the left circumflex, small area of prior infarct with darron-infarct ischemia in the LAD territory. Denies any current chest pain. Medications: Reviewed: Yes Vitals/I&O/Wt Last Vital Signs Temp 98.3 F 09/22/22 11:57 Pulse 60 09/22/22 11:57 Resp 18 09/22/22 11:57 BP 119/57 09/22/22 11:57 Pulse Ox 95 09/22/22 11:57 O2 Del Method Nasal Cannula 09/22/22 11:57 O2 Flow Rate 2 09/22/22 09:39 FiO2 25 09/22/22 02:34 09/22/22 09/22/22 09/22/22 06:59 14:59 22:59 Intake Total 240 / 240 Output Total 850 / 1300 Balance -850 / -820 240 / 240 Physical Exam Narrative: General: No acute distress, AO x3 HEENT: PERRLA, pupils bilaterally equal and reactive, pallors not present Chest: BL rales CVS: S1-S2 regular, no murmurs, no tachycardia, no gallops, no rubs Abdomen: Soft, nontender, no organomegaly, bowel sounds present Neuro: No focal deficits, no facial deformity, AO x3, power 5/5 in all limbs Extremities: LE edema persisting, unchanged compared to yesterday Urinary Catheter Management: Douglas: Cath Placed During This Visit: yes Reason for Continuing Indwelling Catheter: Acute Urinary Retention or Obstruction Urinary Catheter Date of Insertion: 09/15/22 Urinary Catheter Time of Insertion: 17:52 Data 09/22/22 04:00 09/22/22 04:00 A&P Assessment and plan (1) CHF (congestive heart failure): Patient with evidence of acute on chronic systolic heart failure ECHO: reduced EF, 20 to 25% with moderate mitral regurgitation, hypokinetic RV, IVC dilation, moderate pulmonary hypertension and tricuspid regurgitation. This is a change from previous echocardiogram in March 2022 which showed an EF of 39%. Currently diuresed with lasix 80mg IV q12hrs, increased from 40 mg iv q12h yesterday. Also received acetazolamide x 1 on 09/21. Less tachypneic today Currently creatinine is at recent baseline of 1.7. Continue to fluid restrict Hold Entresto currently to allow room for increased dose of Lasix Baseline troponin on admission was at 101, trending down at 2 hours at 98.9 and at 6-hour to 95. Elevated troponins likely related to demand ischemia from CHF vs NSTEMI Continue lovenox 1mg/kg every 12 hrs, changed back to Eliquis when nearing discharge. Per review of past medical history, patient is known to have nonischemic cardiomyopathy. He last underwent a stress test in 2020 which showed multiple areas of fixed and reversible defects. This was followed by an angiogram in 2020 which did not show significant obstructive disease. Patient was advised to continue medical management. Given drop in EF from 39% 20 to 25% along with elevated troponins, he underwent a stress test today which showed multiple defects in the LAD, LCx and RCA territories. Cardiology service has been consulted for further recommendations. Qualifiers: Heart failure type: unspecified Heart failure chronicity: acute on chronic Qualified Code(s): I50.9 - Heart failure, unspecified (2) Hypokalemia: resolved (3) Cellulitis: resolved Currently all changes appear to be consistent with stasis dermatitis. (4) BRAIN (acute kidney injury): CKD, currently creatinine at recent baseline. \currently cr at 1.7 monitor closely with increased lasix today (5) Osteoarthritis: pain management optimize dosing to home medication 10/325 every 6 hrs Plan Elevated bilirubin level. Likely related to hepatic congestion. Slightly higher, likely not clinically significant History of atrial fibrillation. History of diabetes. Continue sliding scale insulin Attestations Medical Necessity Statement*: Abnormal stress test, cardiomyopathy with a EF dropped to 20 to 25%, cardiology recommendations Coding Level of Care Code Acute Code for Chg Fwd High MDM includes number and complexity of problems actively addressed during encounter, amount and/or complexity of data reviewed/ordered and described risk of complication, morbidity or mortality of management as documented Diagnoses CHF (congestive heart failure) I50.9 Heart failure type: unspecified Heart failure chronicity: acute on chronic Hypokalemia E87.6 Cellulitis L03.90 BRAIN (acute kidney injury) N17.9 Osteoarthritis M19.90
--- NOTE | 2022-09-22 17:14 | P.CONIM_ITS ---
Providers/Reason For Consult Consulting Physician/Specialty*: Dr. Lim, Cardiology Reason for Consult*: Abnormal stress test, CHF Attending Physician: Shani Galloway MD Primary Care Provider: Mary Lou Anaya MD History of Present Illness History of Present Illness Refugio Amanda is a 76 year old male with PMHx of NICM, HFrEF (LVEF=39% on last echo in 03/2022), IDDM-2, diabetic peripheral neuropathy,chronicl atrial fibrillation, PAD, CKD and status post cardiac pacemaker procedure.?In 05/2020 he had echo with moderately decraesed LVEF of 40% with diffuse hypokinesis. He underwent LHC after a abnormal myocardial perfusion imaging that showed 50% eccentric LCx lesion. He was admitted with CHF exacerbation and was diuresed. He underwent echo that revealed severely decreased LVEF of 20-25%. He underwent Lexiscan sestamibi stress test that showed medium sized area of prior infarct in RCA territory. Large area of prior infarct with darron-infarct ischemia seen in left?circumflex artery territory. Small area of prior infarct with darron-infarct ischemia is seen in LAD?territory. Patient denies having any chest pain. He is not very active at baseline. He is hesitant to undergo LHC due to his abnormal renal function. Review of Systems Const: Denies: fatigue Eyes: Denies: change in vision ENMT: Denies: throat pain, bleeding gums or epistaxis Card: Reports: edema, swelling of feet/ankles, dyspnea on exertion and orthopnea; Denies: chest pain, palpitations, irregular heart rhythm, lightheadedness, syncope or pre-syncope Resp: Reports: dyspnea; Denies: productive cough or non-productive cough GI: Denies: abdominal pain, nausea, vomiting, hematemesis, diarrhea, constipation or hematochezia : Denies: dysuria or hematuria Musc: Denies: back pain, extremity swelling, joint pain or muscle weakness Skin/Breast: Denies: rash Neuro: Denies: dizziness Psych: Denies: anxiety or depression Endo: Denies: tired all the time Jose Miguel/Lymph: Denies: easy bruising or easy bleeding Medications/Allergies Home Medications Medication Instructions Recorded Confirmed Last Taken Type apixaban 5 mg tablet (Eliquis) 5 mg PO BID 04/09/19 09/15/22 09/15/22 History omeprazole 20 mg capsule,delayed 20 mg PO BID 04/09/19 09/15/22 09/15/22 History release vitamin E (dl, acetate) 450 mg 1,000 unit PO DAILY 04/09/19 09/15/22 11/20/20 History (1,000 unit) capsule pentoxifylline 400 mg 400 mg PO TID 04/12/19 09/15/22 09/15/22 History tablet,extended release sacubitril 97 mg-valsartan 103 mg 1 tab PO BID #180 tabs 02/24/21 09/15/22 09/15/22 Rx tablet (Entresto) atorvastatin 20 mg tablet 20 mg PO DAILY 04/02/21 09/15/22 Unknown History metolazone 5 mg tablet 5 mg PO .qod 06/02/21 09/15/22 Unknown History blood-glucose meter,continuous #1 ea 09/09/21 09/15/22 Unknown Rx (Dexcom G6 Admission Nurse Coordinator) diabetic shoes with 3 custom #1 ea 05/20/22 09/15/22 Unknown Rx inserts bumetanide 2 mg tablet 2 mg PO BID 06/07/22 09/15/22 09/15/22 History blood-glucose sensor (Dexcom G6 #9 ea 07/28/22 09/15/22 Unknown Rx Sensor device) blood-glucose transmitter (Dexcom #1 ea 07/28/22 09/15/22 Unknown Rx G6 Transmitter device) Juzo Lymphedema Wraps Bilaterally #1 ea 08/12/22 09/15/22 Unknown Rx 2 pairs Juzo compression wraps to right #1 ea 08/16/22 09/15/22 Unknown Rx and left oxycodone-acetaminophen 10 mg-325 1 tab PO TID PRN pain 30 days #90 09/13/2210/31 Unknown Rx mg tablet tabs acarbose 100 mg tablet 100 mg PO TID 09/15/22 09/15/22 09/15/22 History cinnamon bark 500 mg capsule 500 mg PO BID PRN unknown 09/15/22 09/15/22 Unknown History (Cinnamon) gabapentin 800 mg tablet 800 mg PO TID 09/15/22 09/15/22 09/15/22 History guaifenesin 600 mg tablet, 600 mg PO TID PRN congestion 09/15/22 09/15/22 Unknown History extended release 12 hr (Mucinex) insulin aspart U-100 100 unit/mL See Rx Instructions .Route .COMPLEX 09/15/22 09/15/22 Unknown History (3 mL) subcutaneous pen (Novolog FlexPen U-100 Insulin aspart) insulin detemir U-100 100 unit/mL 25 unit SUBCUT DAILY 09/15/22 09/15/22 09/15/22 History (3 mL) subcutaneous pen (Levemir FlexTouch U-100 Insulin) levothyroxine 100 mcg tablet 100 mcg PO QAM 09/15/22 09/15/22 09/15/22 History omega-3 fatty acids 1,000 mg 1,000 mg PO BID 09/15/22 09/15/22 09/15/22 History capsule zinc acetate 50 mg (zinc) capsule 50 mg PO DAILY 09/15/22 09/15/22 Unknown History Allergies Allergy/AdvReac Type Severity Reaction Status Date / Time lisinopril Allergy Unknown Verified 09/15/22 08:40 Current Medications Generic Name Dose Route Start Last Admin Trade Name Freq PRN Reason Stop Dose Admin Acetaminophen 650 mg 09/15/22 20:56 09/21/22 07:45 Acetaminophen 325 Mg Tablet PO 650 mg Q6H PRN Administration Mild/Mod Pain Or Temp >/= 101 Atorvastatin Calcium 40 mg 09/16/22 09:00 09/22/22 10:05 Atorvastatin 40 Mg Tablet PO 40 mg DAILY JAIR Administration Doxycycline Monohydrate 100 mg 09/16/22 09:00 09/22/22 10:07 Doxycycline 100 Mg Tablet PO 100 mg BID JAIR Administration Protocol Enoxaparin Sodium 120 mg 09/21/22 06:30 09/22/22 05:44 Enoxaparin 120 Mg/0.8 Ml Syringe SUBCUT 120 mg Q12H JAIR Administration Furosemide 80 mg 09/21/22 16:45 09/22/22 05:44 Furosemide 10 Mg/Ml Sdv 10ml IVP 80 mg Q12H JAIR Administration Gabapentin 400 mg 09/16/22 09:00 09/22/22 14:18 Gabapentin 400 Mg Capsule PO 400 mg TID JAIR Administration Insulin Human Lispro 0 unit 09/16/22 12:00 09/22/22 11:40 Insulin Lispro 100 Unit/1 Ml SUBCUT 4 unit WM&BEDTIME JAIR Administration Protocol Levothyroxine Sodium 100 mcg 09/16/22 06:00 09/22/22 05:49 Levothyroxine 100 Mcg Tablet PO Not Given QAM [facility] Oxycodone/Acetaminophen 1 tab 09/21/22 09:36 09/22/22 11:40 Oxycodone-Apap 10-325 Mg Tablet PO 1 tab Q6H PRN Administration MODERATE PAIN Pantoprazole Sodium 40 mg 09/16/22 09:00 09/22/22 10:[address] 40 Mg Tablet PO 40 mg DAILY JAIR Administration Senna/Docusate Sodium 2 tab 09/16/22 18:00 09/22/22 10:08 Sennosides-Docusate Tablet PO 2 tab BID JAIR Administration PFSH Acute PFSH: Medical History (Updated 09/22/22 @ 17:21 by Brittaney Lim MD) Abdominal pain Abnormal nuclear stress test Acute exacerbation of CHF (congestive heart failure) Acute on chronic diastolic (congestive) heart failure Acute on chronic systolic heart failure BRAIN (acute kidney injury) Anasarca Asymptomatic microscopic hematuria Atherosclerotic heart disease Bradycardia Patient has a longstanding history of atrial fibrillation and bradycardia. Chest pain CHF (congestive heart failure) Chronic atrial fibrillation Patient is on long-term oral anticoagulation. 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 He has mild to moderate diffuse peripheral arterial disease. Pain management contract signed Sleep apnea SOB (shortness of breath) Patient is known to have COPD Varicose veins of bilateral lower extremities with other complications Surgical History History of hip surgery Hx of artificial lens replacement Hx of cataract extraction Hx of toe surgery Hx of tonsillectomy Family History Father , at age 57 Cancer Mother , at age 91 Cancer breast Other CAD (coronary artery disease) Diabetes Denies family history of Clotting disorder Dementia Chronic kidney disease (CKD) Suicide Anesthesia complication Bleeding disorder Lung disease Stroke Social History Smoking and tobacco status: never smoked Second hand smoke exposure: No Alcohol intake: never Substance/Drug Use: never Lives independently: Yes Household members: spouse Housing: House Marital status: Current occupational status: employed Vitals/I&O/Wt Last Vital Signs Temp 98.3 F 09/22/22 16:00 Pulse 63 09/22/22 16:00 Resp 18 09/22/22 16:00 BP 119/64 09/22/22 16:00 Pulse Ox 96 09/22/22 16:00 O2 Del Method Nasal Cannula 09/22/22 11:57 O2 Flow Rate 2 09/22/22 09:39 FiO2 25 09/22/22 02:34 09/22/22 09/22/22 09/22/22 06:59 14:59 22:59 Intake Total 240 / 240 Output Total 850 / 1300 Balance -850 / -820 240 / 240 Physical Exam Narrative: GENERAL: obese man sitting in chair in mild respiratory distress HEENT: Extraocular movement intact. No pallor or icterus. NECK: +JVD, No carotid bruit. CARDIOVASCULAR SYSTEM: S1-S2 irregular. No murmur appreciated RESPIRATORY SYSTEM: Chest clear to auscultation. No wheezes rhonchi or rubs heard. ABDOMEN: Soft, nontender and distended. lower abdominal wall edema+, peau d'orange appearance Normal bowel sounds present. EXTREMITIES: No cyanosis or clubbing. 4+ edema. anasarca+ No signs of chronic venous insufficiency. STATE TESTED NURSING ASSISTANT: Patient is alert oriented ?3. No focal neurological deficits. SKIN: Normal turgor and temperature. PSYCH: Normal insight and judgment. Urinary Catheter Management: Douglas: Cath Placed During This Visit: yes Reason for Continuing Indwelling Catheter: Acute Urinary Retention or Obstruction Urinary Catheter Date of Insertion: 09/15/22 Urinary Catheter Time of Insertion: 17:52 Data 09/22/22 04:00 09/22/22 04:00 A&P Assessment and plan (1) CHF (congestive heart failure): NICM ; HFrEF Recent echo with severely decreased LV systoic function and moderately dilated RV with moderately decreased RV function. -patient admitted with signs and symptoms of BiV failure -agree with diuresis with IV diuresis. -Very small area of reversibility noted on MPI and interpretation limited by supine images only and V paced rhythm with abnormal septal motion. -Patient at this time does not want to undergo repeat LHC given renal dysfunction. I think that LHC will not help us much at this time. SDS=3. -continue to manage medically. May consider outpatient LHC based on his symptoms. 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 He will benefit from CHOCOLATIER-D upgrade of his single chamber PPM -recommend life vest in the interim. Qualifiers: Heart failure type: unspecified Heart failure chronicity: acute on chronic Qualified Code(s): I50.9 - Heart failure, unspecified (2) Abnormal nuclear stress test: No LHC -medical management as outlined above -discharge home on life vest -plan for repeat echo as an outpatient and potentially referral to EP for CHOCOLATIER-D upgrade. 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 transplanted heart: [place] heart Qualified Code(s): I25.10 - Atherosclerotic heart disease of [place] coronary artery without angina pectoris Plan s/p single chamber PPM: VVIR 60/130 Dyslipidemia Obesity IDDM Hypothyroidism GERD Coding Level of Care Code 97102 Diagnoses CHF (congestive heart failure) I50.9 Heart failure type: unspecified Heart failure chronicity: acute on chronic Abnormal nuclear stress test R94.39 CKD (chronic kidney disease) N18.9 Chronic kidney disease stage: unspecified stage Atherosclerotic heart disease of [place] coronary artery without angina pectoris I25.10 [place] vs. transplanted heart: [place] heart
[2022-09-23] VITALS (12 sets, daily range): BP systolic 106–124; BP diastolic 50–71; PULSE 57–93; RESP 16–22; TEMP 36.5–37.2; O2SAT 93–98
[2022-09-23] MEDS: FUROsemide 10 mg/mL SDV 10mL 80 MG IVP (04:08)
[2022-09-23] MEDS: enoxaparin 120 mg/0.8 mL Syringe SUBCUT ×2 (05:42→17:10)
[2022-09-23] MEDS: levothyroxine 100 mcg Tablet PO (05:42)
[2022-09-23] MEDS: oxyCODONE-APAP 10-325 mg Tablet 1 TAB PO ×2 (05:45→18:34)
[2022-09-23] MEDS: pantoprazole DR 40 mg Tablet PO (09:45)
[2022-09-23] MEDS: sennosides-docusate Tablet 2 TAB PO ×2 (09:45→17:11)
[2022-09-23] MEDS: atorvastatin 40 mg Tablet PO (09:45)
[2022-09-23] MEDS: doxycycline 100 mg Tablet PO (09:45)
[2022-09-23] MEDS: gabapentin 400 mg Capsule PO ×3 (09:45→21:11)
--- NOTE | 2022-09-23 15:50 | PM.PN ---
Subjective Subjective: No new complaints. No acute events on telemetry I am not sure if UO is documented right, no blood in Douglas/bag. Medications: Reviewed: Yes Vitals/I&O/Wt Last Vital Signs Temp 97.9 F 09/23/22 12:00 Pulse 57 L 09/23/22 12:00 Resp 18 09/23/22 12:00 BP 107/67 09/23/22 12:00 Pulse Ox 93 09/23/22 12:00 O2 Del Method Nasal Cannula 09/23/22 12:00 O2 Flow Rate 2 09/23/22 08:00 FiO2 25 09/23/22 02:29 09/23/22 09/23/22 09/23/22 06:59 14:59 22:59 Intake Total 200 / 800 960 / 960 Output Total 300 / 700 Balance -100 / 100 960 / 960 Physical Exam Narrative: GENERAL: obese man sitting in chair in mild respiratory distress HEENT: Extraocular movement intact. No pallor or icterus. NECK: +JVD, No carotid bruit. CARDIOVASCULAR SYSTEM: S1-S2 irregular. No murmur appreciated RESPIRATORY SYSTEM: Chest clear to auscultation. No wheezes rhonchi or rubs heard. ABDOMEN: Soft, nontender and distended. lower abdominal wall edema+, peau d'orange appearance Normal bowel sounds present. EXTREMITIES: No cyanosis or clubbing. 4+ edema. anasarca+ No signs of chronic venous insufficiency. MARIONETTE PERFORMER: Patient is alert oriented ?3. No focal neurological deficits. SKIN: Normal turgor and temperature. PSYCH: Normal insight and judgment. Urinary Catheter Management: Douglas: Cath Placed During This Visit: yes Reason for Continuing Indwelling Catheter: Acute Urinary Retention or Obstruction Urinary Catheter Date of Insertion: 09/15/22 Urinary Catheter Time of Insertion: 17:52 Data 09/22/22 04:00 09/22/22 04:00 A&P Assessment and plan (1) CHF (congestive heart failure): NICM ; HFrEF Recent echo with severely decreased LV systoic function and moderately dilated RV with moderately decreased RV function. -patient admitted with signs and symptoms of BiV failure -agree with diuresis with IV diuretics. will consider adding metolazone. -Very small area of reversibility noted on MPI and interpretation limited by supine images only and V paced rhythm with abnormal septal motion. -Patient at this time does not want to undergo repeat LHC given renal dysfunction. I believe that LHC will not help us much at this time. SDS=3. -continue to manage medically. May consider outpatient LHC based on his symptoms. 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 He will benefit from LUBRICATOR GRANULATOR/LUBRICATOR GRANULATOR-D upgrade of his single chamber PPM -recommend life vest in the interim. Qualifiers: Heart failure type: unspecified Heart failure chronicity: acute on chronic Qualified Code(s): I50.9 - Heart failure, unspecified (2) Abnormal nuclear stress test: No LHC -medical management as outlined above -discharge home on life vest -plan for repeat echo as an outpatient and potentially referral to EP for LUBRICATOR GRANULATOR-D upgrade. 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 transplanted heart: [place] heart Qualified Code(s): I25.10 - Atherosclerotic heart disease of [place] coronary artery without angina pectoris Plan s/p single chamber PPM: VVIR 60/130 Dyslipidemia Obesity IDDM Hypothyroidism GERD Attestations Medical Necessity Statement*: needs hospital stay for CHF excaerbation Coding Level of Care Code 55239 Diagnoses CHF (congestive heart failure) I50.9 Heart failure type: unspecified Heart failure chronicity: acute on chronic Abnormal nuclear stress test R94.39 CKD (chronic kidney disease) N18.9 Chronic kidney disease stage: unspecified stage Atherosclerotic heart disease of [place] coronary artery without angina pectoris I25.10 [place] vs. transplanted heart: [place] heart
--- NOTE | 2022-09-23 16:59 | PM.PN ---
Subjective Subjective: No new complaints today. Feels like his breathing is better today. Net -3.9 L Medications: Reviewed: Yes Vitals/I&O/Wt Last Vital Signs Temp 97.9 F 09/23/22 12:00 Pulse 57 L 09/23/22 12:00 Resp 18 09/23/22 12:00 BP 107/67 09/23/22 12:00 Pulse Ox 93 09/23/22 12:00 O2 Del Method Nasal Cannula 09/23/22 12:00 O2 Flow Rate 2 09/23/22 08:00 FiO2 25 09/23/22 02:29 09/23/22 09/23/22 09/23/22 06:59 14:59 22:59 Intake Total 200 / 800 960 / 960 Output Total 300 / 700 Balance -100 / 100 960 / 960 Physical Exam Narrative: General: No acute distress, AO x3 HEENT: PERRLA, pupils bilaterally equal and reactive, pallors not present Chest: Normal vesicular breath sounds, no added sounds, equal good air entry bilaterally CVS: S1-S2 regular, no murmurs, no tachycardia, no gallops, no rubs Abdomen: Soft, nontender, no organomegaly, bowel sounds present Neuro: No focal deficits, no facial deformity, AO x3, power 5/5 in all limbs Urinary Catheter Management: Douglas: Cath Placed During This Visit: yes Reason for Continuing Indwelling Catheter: Acute Urinary Retention or Obstruction Urinary Catheter Date of Insertion: 09/15/22 Urinary Catheter Time of Insertion: 17:52 Data 09/22/22 04:00 09/22/22 04:00 A&P Assessment and plan (1) CHF (congestive heart failure): Patient with evidence of acute on chronic systolic heart failure ECHO: reduced EF, 20 to 25% with moderate mitral regurgitation, hypokinetic RV, IVC dilation, moderate pulmonary hypertension and tricuspid regurgitation. This is a change from previous echocardiogram in March 2022 which showed an EF of 39%. Currently diuresed with lasix 80mg IV q12hrs, change Lasix to 80 mg p.o. twice daily and monitor for response. Recheck creatinine with a.m. labs Continue to fluid restrict Hold Entresto currently to allow room for increased dose of Lasix Baseline troponin on admission was at 101, trending down at 2 hours at 98.9 and at 6-hour to 95. Elevated troponins likely related to demand ischemia from CHF vs NSTEMI Continue lovenox 1mg/kg every 12 hrs, changed back to Eliquis when nearing discharge. Per review of past medical history, patient is known to have nonischemic cardiomyopathy. Given drop in EF from 39% 20 to 25% along with elevated troponins, he underwent a stress test this admission which showed multiple defects in the LAD, LCx and RCA territories. Consulted cardiology, appreciate recommendations Continuing medical management for now, no planned intervention for now Patient to be fitted with LifeVest prior to discharge Qualifiers: Heart failure type: unspecified Heart failure chronicity: acute on chronic Qualified Code(s): I50.9 - Heart failure, unspecified (2) Hypokalemia: resolved (3) Cellulitis: resolved Currently all changes appear to be consistent with stasis dermatitis. (4) BRAIN (acute kidney injury): CKD, currently creatinine at recent baseline. \currently cr at 1.7 monitor closely with increased lasix today (5) Osteoarthritis: pain management optimize dosing to home medication 10/325 every 6 hrs Plan Elevated bilirubin level. Likely related to hepatic congestion. Slightly higher, likely not clinically significant History of atrial fibrillation. History of diabetes. Continue sliding scale insulin Attestations Medical Necessity Statement*: Change IV to oral diuretics, monitor for response with this change, discontinue doxycycline, arrangements for LifeVest Coding Level of Care Code Acute Code for Chg Fwd Moderate MDM includes number and complexity of problems actively addressed during encounter, amount and/or complexity of data reviewed/ordered and described risk of complication, morbidity or mortality of management as documented Diagnoses CHF (congestive heart failure) I50.9 Heart failure type: unspecified Heart failure chronicity: acute on chronic Hypokalemia E87.6 Cellulitis L03.90 BRAIN (acute kidney injury) N17.9 Osteoarthritis M19.90
[2022-09-23] MEDS: insulin lispro 100 unit/1 mL SUBCUT ×2 (17:10→21:12)
[2022-09-23] MEDS: potassium chloride ER 20 mEq Tablet PO (17:11)
[2022-09-23] MEDS: FUROsemide 40 mg Tablet 80 MG PO (17:53)
[2022-09-23] MEDS: nystatin cream 30 gm 1 APPLIC TOPICAL (17:57)
--- NOTE | 2022-09-23 20:30 | PC.NURSE ---
pt blood sugar was 273 at 2030
[2022-09-24] VITALS (14 sets, daily range): BP systolic 115–132; BP diastolic 60–80; PULSE 60–88; RESP 16–22; TEMP 36.4–37.2; O2SAT 95–98
[2022-09-24 05:05] LABS: Basophils # 0.1 10^3/uL (0.0-0.1); Basophils % 0.8 %; Eosinophils # 0.2 10^3/uL (0.0-0.8); Eosinophils % 3.4 %; Hematocrit 36.4 % (42.0-52.0); Hemoglobin 11.9 g/dL (11.7-16.6); Lymphocytes % 13.3 %; Mean Corpuscular HGB Conc 32.7 g/dL (30.0-36.0); Mean Corpuscular Volume 88.6 fl (80-94); Mean Platelet Volume 11.5 fL (7.4-10.4); Monocytes # 0.9 10^3/uL (0.2-0.9); Monocytes % 12.6 %; Neutrophils # 4.95 10^3/uL (1.8-7.7); Neutrophils % 69.3 %; Nucleated Red Blood Cells % 0 %; Platelet Count 189 10^3/cmm (130-400); Red Blood Count 4.11 10^6/uL (4.1-5.3); Red Cell Distribution Width 16.2 % (12.1-15.1); White Blood Count 7.1 10^3/uL (4.0-10.0)
[2022-09-24 05:30] LABS: Alanine Aminotransferase 10 U/L (0-41); Albumin Level 3.3 g/dL (3.5-5.2); Alkaline Phosphatase 209 U/L (40-130); Aspartate Amino Transferase 30 U/L (0-40); Blood Urea Nitrogen 77 mg/dL (8-23); Calcium 8.9 mg/dL (8.5-10.5); Carbon Dioxide 26 mmol/L (22-29); Chloride 91 mmol/L (98-107); Globulin 3.8 g/dL (1.3-4.6); Glucose 130 mg/dL (65-115); Osmolality Calculated 297 mOsm/kg (285-295); Sodium 131 mmol/L (136-145); Total Bilirubin 1.5 mg/dL (0.15-1.2); Total Protein 7.1 g/dL (6.6-8.7)
[2022-09-24 05:33] LABS: Anion Gap 17.9 (5-19); Potassium 3.9 mmol/L (3.5-5.1)
[2022-09-24] MEDS: enoxaparin 120 mg/0.8 mL Syringe SUBCUT ×2 (05:45→18:20)
[2022-09-24] MEDS: levothyroxine 100 mcg Tablet PO (05:45)
[2022-09-24] MEDS: oxyCODONE-APAP 10-325 mg Tablet 1 TAB PO ×3 (05:45→18:50)
--- NOTE | 2022-09-24 08:07 | PC.NURSE ---
blood sugar 145 @ 0800
[2022-09-24] MEDS: sennosides-docusate Tablet 2 TAB PO ×2 (09:03→18:20)
[2022-09-24] MEDS: gabapentin 400 mg Capsule PO ×3 (09:03→20:26)
[2022-09-24] MEDS: pantoprazole DR 40 mg Tablet PO (09:03)
[2022-09-24] MEDS: atorvastatin 40 mg Tablet PO (09:03)
[2022-09-24] MEDS: FUROsemide 40 mg Tablet 80 MG PO ×2 (09:04→15:13)
--- NOTE | 2022-09-24 10:50 | PC.SOCIAL ---
Imm update Imm updated with patient at bedside. Copy of page 2 provided. Patient verbalized understanding. Copy in chart initialed, dated and timed.
--- NOTE | 2022-09-24 11:40 | PC.NURSE ---
blood sugar 175 @ 1140
--- NOTE | 2022-09-24 12:21 | PM.PN ---
Subjective Subjective: Urine output 800 cc. Overall net positive over last 24 hours. No new complaints otherwise. He has received his chest vest today. Medications: Reviewed: Yes Vitals/I&O/Wt Last Vital Signs Temp 97.9 F 09/24/22 11:41 Pulse 75 09/24/22 11:41 Resp 17 09/24/22 11:41 BP 121/68 09/24/22 11:41 Pulse Ox 95 09/24/22 11:41 O2 Del Method Nasal Cannula 09/24/22 08:00 O2 Flow Rate 2 09/24/22 08:00 FiO2 25 09/23/22 21:25 09/23/22 09/24/22 09/24/22 22:59 06:59 14:59 Intake Total 480 / 1440 240 / 1680 360 / 360 Output Total 800 / 800 Balance 480 / 1440 -560 / 880 360 / 360 Physical Exam Narrative: General: No acute distress, AO x3 HEENT: PERRLA, pupils bilaterally equal and reactive, pallors not present Chest: Normal vesicular breath sounds, no added sounds, equal good air entry bilaterally CVS: S1-S2 regular, no murmurs, no tachycardia, no gallops, no rubs Abdomen: Soft, nontender, no organomegaly, bowel sounds present Neuro: No focal deficits, no facial deformity, AO x3, power 5/5 in all limbs Urinary Catheter Management: Douglas: Cath Placed During This Visit: yes Reason for Continuing Indwelling Catheter: Accurate Measurement of Urinary Output in Critically Ill Patients Urinary Catheter Date of Insertion: 09/15/22 Urinary Catheter Time of Insertion: 17:52 Data 09/24/22 04:33 09/24/22 04:33 A&P Assessment and plan (1) CHF (congestive heart failure): Patient with evidence of acute on chronic systolic heart failure ECHO: reduced EF, 20 to 25% with moderate mitral regurgitation, hypokinetic RV, IVC dilation, moderate pulmonary hypertension and tricuspid regurgitation. This is a change from previous echocardiogram in March 2022 which showed an EF of 39%. Currently diuresed with lasix 80mg IV q12hrs, change Lasix to 80 mg p.o. twice daily and monitor for response. Recheck creatinine with a.m. labs Continue to fluid restrict Hold Entresto currently to allow room for increased dose of Lasix Baseline troponin on admission was at 101, trending down at 2 hours at 98.9 and at 6-hour to 95. Elevated troponins likely related to demand ischemia from CHF vs NSTEMI Continue lovenox 1mg/kg every 12 hrs, changed back to Eliquis when nearing discharge. Per review of past medical history, patient is known to have nonischemic cardiomyopathy. Given drop in EF from 39% 20 to 25% along with elevated troponins, he underwent a stress test this admission which showed multiple defects in the LAD, LCx and RCA territories. Consulted cardiology, appreciate recommendations Continuing medical management for now, no planned intervention for now Patient to be fitted with LifeVest prior to discharge Qualifiers: Heart failure type: unspecified Heart failure chronicity: acute on chronic Qualified Code(s): I50.9 - Heart failure, unspecified (2) Hypokalemia: resolved (3) Cellulitis: resolved Currently all changes appear to be consistent with stasis dermatitis. (4) BRAIN (acute kidney injury): CKD, currently creatinine at recent baseline. \currently cr at 1.7 monitor closely with increased lasix today (5) Osteoarthritis: pain management optimize dosing to home medication 10/325 every 6 hrs Plan Elevated bilirubin level. Likely related to hepatic congestion. Slightly higher, likely not clinically significant History of atrial fibrillation. History of diabetes. Continue sliding scale insulin Plan for today: Continue diuresis with oral Lasix. Monitor for improvement. Anticipate discharge in the upcoming 24 hours, LifeVest made available today. Attestations Medical Necessity Statement*: Continue diuresis, currently tolerating oral Lasix, anticipate discharge in the upcoming 24 hours if continues to diurese well. Coding Level of Care Code Acute Code for [facility] Diagnoses CHF (congestive heart failure) I50.9 Heart failure type: unspecified Heart failure chronicity: acute on chronic Hypokalemia E87.6 Cellulitis L03.90 BRAIN (acute kidney injury) N17.9 Osteoarthritis M19.90
[2022-09-24] MEDS: nystatin cream 30 gm 1 APPLIC TOPICAL (12:50)
--- NOTE | 2022-09-24 15:30 | PC.NURSE ---
blood sugar 245 @1530
[2022-09-24] MEDS: bumetanide 1 mg Tablet 2 MG PO (18:20)
[2022-09-24] MEDS: metOLazone 5 MG Tablet PO (18:20)
[2022-09-24] MEDS: insulin lispro 100 unit/1 mL SUBCUT ×2 (18:22→20:26)
--- NOTE | 2022-09-24 20:51 | PC.NURSE ---
pt blood sugar was at 219
--- NOTE | 2022-09-24 22:47 | PM.PN ---
Subjective Subjective: c/o SOB, did not sleep well Medications: Reviewed: Yes Vitals/I&O/Wt Last Vital Signs Temp 97.6 F 09/24/22 20:00 Pulse 73 09/24/22 20:36 Resp 16 09/24/22 20:35 BP 132/80 09/24/22 20:00 Pulse Ox 96 09/24/22 20:36 O2 Del Method Nasal Cannula 09/24/22 20:35 O2 Flow Rate 2 09/24/22 20:35 FiO2 25 09/24/22 20:36 09/24/22 09/24/22 09/24/22 06:59 14:59 22:59 Intake Total 240 / 1680 600 / 600 240 / 840 Output Total 800 / 800 Balance -560 / 880 600 / 600 240 / 840 Physical Exam Narrative: GENERAL: obese man sitting in chair in mild respiratory distress HEENT: Extraocular movement intact. No pallor or icterus. NECK: +JVD, No carotid bruit. CARDIOVASCULAR SYSTEM: S1-S2 irregular. No murmur appreciated RESPIRATORY SYSTEM: Chest clear to auscultation. No wheezes rhonchi or rubs heard. ABDOMEN: Soft, nontender and distended. lower abdominal wall edema+, peau d'orange appearance Normal bowel sounds present. EXTREMITIES: No cyanosis or clubbing. 4+ edema. anasarca+ No signs of chronic venous insufficiency. OAKES MACHINE OPERATOR: Patient is alert oriented ?3. No focal neurological deficits. SKIN: Normal turgor and temperature. PSYCH: Normal insight and judgment. Urinary Catheter Management: Douglas: Cath Placed During This Visit: yes Reason for Continuing Indwelling Catheter: Accurate Measurement of Urinary Output in Critically Ill Patients Urinary Catheter Date of Insertion: 09/15/22 Urinary Catheter Time of Insertion: 17:52 Data 09/24/22 04:33 09/24/22 04:33 A&P Assessment and plan (1) CHF (congestive heart failure): NICM ; HFrEF Recent echo with severely decreased LV systoic function and moderately dilated RV with moderately decreased RV function. -patient admitted with signs and symptoms of BiV failure -agree with diuresis. restart bumex 2 mg BID and will add metolazone. -Very small area of reversibility noted on MPI and interpretation limited by supine images only and V paced rhythm with abnormal septal motion. -Patient at this time does not want to undergo repeat LHC given renal dysfunction. I believe that LHC will not help us much at this time. SDS=3. -continue to manage medically. May consider outpatient LHC based on his symptoms. 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 He will benefit from GRIDDLE ATTENDANT/GRIDDLE ATTENDANT-D upgrade of his single chamber PPM -recommend life vest in the interim. Qualifiers: Heart failure type: unspecified Heart failure chronicity: acute on chronic Qualified Code(s): I50.9 - Heart failure, unspecified (2) Abnormal nuclear stress test: No LHC -medical management as outlined above -discharge home on life vest -plan for repeat echo as an outpatient and potentially referral to EP for GRIDDLE ATTENDANT-D upgrade. 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 transplanted heart: [place] heart Qualified Code(s): I25.10 - Atherosclerotic heart disease of [place] coronary artery without angina pectoris Plan s/p single chamber PPM: VVIR 60/130 Dyslipidemia Obesity IDDM Hypothyroidism GERD Attestations Medical Necessity Statement*: As per primary team Coding Level of Care Code 20189 Diagnoses CHF (congestive heart failure) I50.9 Heart failure type: unspecified Heart failure chronicity: acute on chronic Abnormal nuclear stress test R94.39 CKD (chronic kidney disease) N18.9 Chronic kidney disease stage: unspecified stage Atherosclerotic heart disease of [place] coronary artery without angina pectoris I25.10 [place] vs. transplanted heart: [place] heart
[2022-09-25] VITALS (7 sets, daily range): BP systolic 99–119; BP diastolic 62–70; PULSE 63–67; RESP 16–18; TEMP 36.4–36.7; O2SAT 94–98
[2022-09-25] MEDS: levothyroxine 100 mcg Tablet PO (06:24)
[2022-09-25] MEDS: enoxaparin 120 mg/0.8 mL Syringe SUBCUT (06:24)
[2022-09-25] MEDS: oxyCODONE-APAP 10-325 mg Tablet 1 TAB PO (06:24)
--- NOTE | 2022-09-25 06:31 | PC.NURSE ---
pt blood sugar was 149 at 0630
[2022-09-25] MEDS: bumetanide 1 mg Tablet 2 MG PO (09:24)
[2022-09-25] MEDS: metOLazone 5 MG Tablet PO (09:24)
[2022-09-25] MEDS: insulin lispro 100 unit/1 mL SUBCUT ×2 (09:24→13:06)
[2022-09-25] MEDS: sennosides-docusate Tablet 2 TAB PO (09:24)
[2022-09-25] MEDS: gabapentin 400 mg Capsule PO (09:25)
[2022-09-25] MEDS: pantoprazole DR 40 mg Tablet PO (09:25)
[2022-09-25] MEDS: atorvastatin 40 mg Tablet PO (09:25)
[2022-09-25] MEDS: nystatin cream 30 gm 1 APPLIC TOPICAL (09:26)
--- NOTE | 2022-09-25 10:08 | PM.PN ---
Subjective Subjective: Patient is doing well without any chest pain or shortness of breath. Almost back to his baseline. Still have mild to moderate bilateral pedal edema. Medications: Reviewed: Yes Vitals/I&O/Wt Last Vital Signs Temp 97.6 F 09/25/22 08:00 Pulse 67 09/25/22 08:00 Resp 16 09/25/22 08:00 BP 119/70 09/25/22 08:00 Pulse Ox 94 09/25/22 08:00 O2 Del Method Nasal Cannula 09/25/22 08:00 O2 Flow Rate 2 09/25/22 08:00 FiO2 25 09/25/22 02:11 09/24/22 09/25/22 09/25/22 22:59 06:59 14:59 Intake Total 240 / 840 480 / 1320 120 / 120 Output Total 1500 / 1500 Balance 240 / 840 -1020 / -180 120 / 120 Physical Exam Narrative: GENERAL: obese man sitting in chair in mild respiratory distress HEENT: Extraocular movement intact. No pallor or icterus. NECK: +JVD, No carotid bruit. CARDIOVASCULAR SYSTEM: S1-S2 irregular. 1/6 systolic murmur appreciated RESPIRATORY SYSTEM: Chest clear to auscultation. No wheezes rhonchi or rubs heard. ABDOMEN: Soft, nontender and distended. lower abdominal wall edema+, peau d'orange appearance Normal bowel sounds present. EXTREMITIES: No cyanosis or clubbing. 4+ edema. anasarca+ No signs of chronic venous insufficiency. INTERNAL CONTROLS ANALYST: Patient is alert oriented ?3. No focal neurological deficits. SKIN: Normal turgor and temperature. PSYCH: Normal insight and judgment. Urinary Catheter Management: Douglas: Cath Placed During This Visit: yes Reason for Continuing Indwelling Catheter: Accurate Measurement of Urinary Output in Critically Ill Patients Urinary Catheter Date of Insertion: 09/15/22 Urinary Catheter Time of Insertion: 17:52 Data 09/24/22 04:33 09/24/22 04:33 A&P Assessment and plan (1) CHF (congestive heart failure): Acute on chronic systolic. Overall improved will add low-dose Coreg 3.125 twice a day as blood pressure tolerates. Continue Entresto. If his acute renal failure improves may need cardiac cath at later stage. Patient to follow-up with primary house painting instructor in 1 to 2 weeks sooner if needed Qualifiers: Heart failure type: unspecified Heart failure chronicity: acute on chronic Qualified Code(s): I50.9 - Heart failure, unspecified (2) Nonischemic cardiomyopathy: Poor underlying ejection fraction. Will add beta-rossy continue Entresto. Patient is currently on LifeVest. Patient will need reassessment of his LV function in about 3-month if EF still less than 35% will need evaluation for ICD. (3) BRAIN (acute kidney injury): Slightly improved creatinine currently is 1.6. Patient to follow-up with his felt cutting machine operator. Attestations Medical Necessity Statement*: As per primary team Coding Level of Care Code 88042 Diagnoses CHF (congestive heart failure) I50.9 Heart failure type: unspecified Heart failure chronicity: acute on chronic Nonischemic cardiomyopathy I42.8 BRAIN (acute kidney injury) N17.9
--- NOTE | 2022-09-25 10:59 | PM.DCS ---
Discharge Providers Date of Admission: 09/15/22 19:34 Date of Discharge: September 25, 2022 Attending Provider at Admission: Mary Salazar MD Attending Provider at Discharge: Shani Galloway MD Primary Care Provider: Mary Lou Anaya MD Diagnoses at Discharge Discharge Diagnosis (1) CHF (congestive heart failure): Status: Acute Qualifiers: Heart failure type: unspecified Heart failure chronicity: acute on chronic Qualified Code(s): I50.9 - Heart failure, unspecified (2) Nonischemic cardiomyopathy: Status: Acute (3) BRAIN (acute kidney injury): Status: Acute Reason for Visit Reason for Visit: CHF decompensation Hospital Course Hospital Course Refugio Amanda is a 76 year old male?with PMHx of NICM, HFrEF (LVEF=39% on last echo in 03/2022), IDDM-2,? diabetic peripheral neuropathy,chronicl atrial fibrillation, PAD, CKD and status post cardiac pacemaker procedure. He presented to the hospital with c/o increasing swelling, weigth gain and difficulty breathing. he was found to have evidence of acute on chronic systolic heart failure ECHO showed : reduced EF, 20 to 25% with moderate mitral regurgitation, hypokinetic RV, IVC dilation, moderate pulmonary hypertension and tricuspid regurgitation.? This is a change from previous echocardiogram in March 2022 which showed an EF of 39%. He was aggressively diuresed with iv lasix during course of admission. He LE edema improved, though some edema is still persistent. His respiratory status improved and he is down to 2lpm via NC which is his baseline. He uses Bipap at home at nigth time. He is net negative 4 L since admission. Diuretics had to be adjusted intermittently based on renal function and bicarbonate levels however he did well overall. Baseline troponin on admission was at 101, trending down at 2 hours at 98.9 and at 6-hour to 95. Given drop in EF from 39% 20 to 25% along with elevated troponins, he underwent a stress test this admission which showed multiple defects in the LAD, LCx and RCA territories.? Consulted cardiology, appreciate recommendations, please see cardiology progress notes for details. Angiogram was deferred as patient concerned about risk of ERIC and progression to HD. This may need to be readdressed as outpatient. Patient was fitted with a LifeVest prior to discharge. Arrangements for possible [employer]-D as outpatient. His medications at the efrem eof discharge includes Coreg, Bumex 2 mg p.o. twice daily, metolazone every other day, resumed Entresto. Follow-up with cardiology nurse practitioner within 1 week. Patient is being discharged today in a chronically ill but best optimized state. He was treated for possible cellulitis with Doxycycline. Physical Exam Narrative: General: No acute distress, AO x3 HEENT: PERRLA, pupils bilaterally equal and reactive, pallors not present Chest: Normal vesicular breath sounds, no added sounds, equal good air entry bilaterally CVS: S1-S2 regular, no murmurs, no tachycardia, no gallops, no rubs Abdomen: Soft, nontender, no organomegaly, bowel sounds present Neuro: No focal deficits, no facial deformity, AO x3, power 5/5 in all limbs Extremities: LE edema improved since admission, but still persisting Urinary Catheter Management: Douglas: Cath Placed During This Visit: yes Reason for Continuing Indwelling Catheter: Accurate Measurement of Urinary Output in Critically Ill Patients Urinary Catheter Date of Insertion: 09/15/22 Urinary Catheter Time of Insertion: 17:52 Discharge Data Studies Completed and Pending Completed Studies During Hospitalization Category Date Time Status CXRP [XR chest 1V portable [id number]] AM LABS Exams 09/21/22 04:00 Completed Cardiac Stress Test MIBI [Sestamibi Stress Test Request Exams 09/21/22 11:12 Draft ] Routine XR chest 1V portable [id number] Stat Exams 09/15/22 16:30 Completed NM maury perf SPECT r/s* [id number] Routine Nuc Med 09/22/22 08:00 Completed CV. echo wo/w contrast [id number] Routine Ultrasound 09/15/22 20:57 Completed US abdomen complete* [id number] Routine Ultrasound 09/16/22 20:58 Completed Radiology Impressions Abdomen Ultrasound 09/16/22 20:58 IMPRESSION: Technically difficult examination due to body habitus and bowel gas. 1. Coarse cirrhotic configuration to the liver. 2. Cholelithiasis and sludge. No evidence of acute cholecystitis. 3. No hydronephrosis in RIGHT kidney where visualized. 4. LEFT kidney not visualized due to bowel gas. 5. Pancreas not visualized. 6. Prominent common bile duct measuring 6.6 mm 7. Spleen is not well visualized but appears coarse heterogeneous. Perisplenic ascites. Chest X-Ray 09/21/22 04:00 IMPRESSION: Findings compatible with chronic congestive heart failure. The findings appear somewhat more prominent than on the examination of 09/25/2022. Laboratory Results WBC 7.1 10^3/uL (4.0-10.0) 09/24/22 04:33 RBC 4.11 10^6/uL (4.1-5.3) 09/24/22 04:33 Hgb 11.9 g/dL (11.7-16.6) 09/24/22 04:33 Hct 36.4 % (42.0-52.0) L 09/24/22 04:33 MCV 88.6 fl (80-94) 09/24/22 04:33 MCH 29.0 pg (28.0-34.0) 09/24/22 04:33 MCHC 32.7 g/dL (30.0-36.0) 09/24/22 04:33 RDW 16.2 % (12.1-15.1) H 09/24/22 04:33 Plt Count 189 10^3/cmm (130-400) 09/24/22 04:33 MPV 11.5 fL (7.4-10.4) H 09/24/22 04:33 Neut % (Auto) 69.3 % 09/24/22 04:33 Lymph % (Auto) 13.3 % 09/24/22 04:33 [place] % (Auto) 12.6 % 09/24/22 04:33 Eos % (Auto) 3.4 % 09/24/22 04:33 Baso % (Auto) 0.8 % 09/24/22 04:33 Neut # (Auto) 4.95 10^3/uL (1.8-7.7) 09/24/22 04:33 Lymph # (Auto) 1.0 10^3/uL (0.8-4.8) 09/24/22 04:33 [place] # (Auto) 0.9 10^3/uL (0.2-0.9) 09/24/22 04:33 Eos # (Auto) 0.2 10^3/uL (0.0-0.8) 09/24/22 04:33 Baso # (Auto) 0.1 10^3/uL (0.0-0.1) 09/24/22 04:33 Nucleated RBC % (auto) 0 % 09/24/22 04:33 Nucleated RBCs # 0.0 /100WBC 09/24/22 04:33 PT 25.40 SECONDS (12.1-14.9) H 09/15/22 16:30 INR 2.21 (0.8-1.2) H 09/15/22 16:30 Sodium 131 mmol/L (136-145) L 09/24/22 04:33 Potassium 3.9 mmol/L (3.5-5.1) 09/24/22 04:33 Chloride 91 mmol/L (98-107) L 09/24/22 04:33 Carbon Dioxide 26 mmol/L (22-29) 09/24/22 04:33 Anion Gap 17.9 (5-19) 09/24/22 04:33 BUN 77 mg/dL (8-23) H 09/24/22 04:33 Creatinine 1.6 mg/dL (0.7-1.2) H 09/24/22 04:33 GFR Calculation Not Reportable 09/24/22 04:33 Glucose 130 mg/dL (65-115) H 09/24/22 04:33 Calculated Osmolality 297 mOsm/kg (285-295) H 09/24/22 04:33 Calcium 8.9 mg/dL (8.5-10.5) 09/24/22 04:33 Magnesium 2.1 mg/dL (1.7-2.3) 09/17/22 05:06 Total Bilirubin 1.5 mg/dL (0.15-1.2) H 09/24/22 04:33 Direct Bilirubin 0.90 mg/dL (0.00-0.30) H 09/17/22 05:06 AST 30 U/L (0-40) 09/24/22 04:33 ALT 10 U/L (0-41) 09/24/22 04:33 Alkaline Phosphatase 209 U/L (40-130) H 09/24/22 04:33 Troponin T Baseline 101 ng/L (0-15) H* 09/15/22 16:30 Troponin T 120 Minute 98.99 ng/L (0-15) H 09/15/22 18:30 Delta Troponin T -2.01 ABS# (0-10) L 09/15/22 18:30 Troponin T Hi Sens 6Hr 95.39 ng/L (0-15) H 09/15/22 22:08 Troponin T Hi Sens 6Hr Delta -5.61 ng/L (0-12) L 09/15/22 22:08 NT-Pro-B Natriuret Pep 3599 pg/mL (0-450) H 09/15/22 16:30 Total Protein 7.1 g/dL (6.6-8.7) 09/24/22 04:33 Albumin 3.3 g/dL (3.5-5.2) L 09/24/22 04:33 Globulin 3.8 g/dL (1.3-4.6) 09/24/22 04:33 Procalcitonin 0.14 ng/mL (0-0.5) 09/15/22 18:30 TSH 2.60 uIU/mL (0.27-4.20) 09/15/22 18:30 Vitals Last Vital Signs Temp 97.6 F 09/25/22 08:00 Pulse 67 09/25/22 08:00 Resp 16 09/25/22 08:00 BP 119/70 09/25/22 08:00 Pulse Ox 94 09/25/22 08:00 O2 Del Method Nasal Cannula 09/25/22 08:00 O2 Flow Rate 2 09/25/22 08:00 FiO2 25 09/25/22 02:11 Discharge Plan Discharge Patient Disposition: Home Condition: Stable Prescriptions: New carvedilol 3.125 mg Tablet 3.125 mg PO BID 30 Days Qty: 60 0RF Continued pentoxifylline 400 mg tablet extended release 400 mg PO TID omeprazole 20 mg capsule,delayed release(DR/EC) 20 mg PO BID vitamin E (dl, acetate) 1,000 unit capsule 1,000 unit PO DAILY Eliquis 5 mg tablet 5 mg PO BID cinnamon bark [Cinnamon] 500 mg capsule 500 mg PO BID PRN (Reason: unknown) atorvastatin 20 mg tablet 20 mg PO DAILY metolazone 5 mg tablet 5 mg PO .qod Entresto 97-103 mg tablet 1 tab PO BID Qty: 180 3RF gabapentin 800 mg tablet 800 mg PO TID guaifenesin [Mucinex] 600 mg tablet extended release 12hr 600 mg PO TID PRN (Reason: congestion) (DME) Dexcom G6 Sensor Device See Rx Instructions .Route Qty: 9 3RF Rx Instructions: change every 10 days (DME) Dexcom G6 Transmitter Device See Rx Instructions .Route Qty: 1 3RF Rx Instructions: change every 3 months oxycodone-acetaminophen 10-325 mg tablet 1 tab PO TID PRN (Reason: pain) 30 Days Qty: 90 0RF Rx Instructions: may fill 30 days after previous refill. Levemir FlexTouch U-100 Insuln 100 unit/mL (3 mL) insulin pen 25 unit SUBCUT DAILY (DME) diabetic shoes with 3 custom inserts See Rx Instructions .Route .MEDSUPPLY Qty: 1 0RF Rx Instructions: As directed (DME) Juzo compression wraps to right and left See Rx Instructions .Route .MEDSUPPLY Qty: 1 0RF Rx Instructions: As directed (DME) Dexcom G6 Probation Agent Misc See Rx Instructions .Route Qty: 1 0RF Rx Instructions: Check BS 4-6 times a day. bumetanide 2 mg tablet 2 mg PO BID (DME) Juzo Lymphedema Wraps Bilaterally 2 pairs See Rx Instructions .Route .MEDSUPPLY Qty: 1 0RF Rx Instructions: As directed J P [employer] O Fish Oil Concentrate 1,000 mg Capsule 1,000 mg PO BID zinc acetate 50 mg (zinc) Capsule 50 mg PO DAILY levothyroxine 100 mcg Tablet 100 mcg PO QAM Novolog FlexPen U-100 Insulin 100 unit/mL (3 mL) Insulin Pen See Rx Instructions .ROUTE .COMPLEX Rx Instructions: sliding scale daily as needed for blood sugar acarbose 100 mg tablet 100 mg PO TID Rx Instructions: before meals (ac) Discharge Orders: Discharge Order (Routine); Ordered 09/25/22 Ordered By: Shani Galloway Other Ambulatory Orders: Physical Therapy Eval and Treat Outpatient (Order) Timeframe: 3 Days Facility: [facility] - Location: Physical Therapy Ordered By: Sahni Galloway Referrals: Mary Lou Anaya MD [Primary Care Provider] - 09/29/22 10:00 am Daija Pierre FNP [Nurse Practitioner] - 1 week Discharge Diet: Usual diet Discharge Activity: Resume usual activity Patient Instructions: Opioid Safety Discharge Attestations Time Spent in Discharge Care*: greater than 30 min Status at Discharge: Cognitive status at discharge: cognitively intact, Behavioral status at discharge: [facility], Quality Metrics Clinical Quality Measures [ No reported AMI, CVA or VTE this stay] Coding Level of Care Code Acute Code for Chg Fwd Diagnoses CHF (congestive heart failure) I50.9 Heart failure type: unspecified Heart failure chronicity: acute on chronic Nonischemic cardiomyopathy I42.8 BRAIN (acute kidney injury) N17.9
== END 2022-09-25 13:45 | disposition home or self-care (01) | DRG 291 ==
LOC: ER 19:34 → MEDSURG 19:58
PROVIDERS: Family Medicine; Internal Medicine; Admitting Provider Internal Medicine; Emergency Provider Emergency Medicine; PCP Family Medicine; Visit Provider Student in an Organized Health Care Education/Training Program
DX: I13.0 Hypertensive heart and chronic kidney disease with heart failure and stage 1 through stage 4 chronic kidney disease, or unspecified chronic kidney disease (principal); I50.23 Acute on chronic systolic (congestive) heart failure; I48.20 Chronic atrial fibrillation, unspecified; L03.115 Cellulitis of right lower limb; N17.9 Acute kidney failure, unspecified; I24.8 Other forms of acute ischemic heart disease; N18.9 Chronic kidney disease, unspecified; E11.22 Type 2 diabetes mellitus with diabetic chronic kidney disease; Z79.4 Long term (current) use of insulin; I25.10 Atherosclerotic heart disease of native coronary artery without angina pectoris; Z79.01 Long term (current) use of anticoagulants; R00.1 Bradycardia, unspecified; K74.60 Unspecified cirrhosis of liver; J44.9 Chronic obstructive pulmonary disease, unspecified; Z95.0 Presence of cardiac pacemaker; E78.5 Hyperlipidemia, unspecified; Z79.891 Long term (current) use of opiate analgesic; E11.51 Type 2 diabetes mellitus with diabetic peripheral angiopathy without gangrene; G47.33 Obstructive sleep apnea (adult) (pediatric); Z99.89 Dependence on other enabling machines and devices; M16.9 Osteoarthritis of hip, unspecified; I42.8 Other cardiomyopathies; E11.42 Type 2 diabetes mellitus with diabetic polyneuropathy; E66.9 Obesity, unspecified; Z68.36 Body mass index [BMI] 36.0-36.9, adult; E03.9 Hypothyroidism, unspecified; K21.9 Gastro-esophageal reflux disease without esophagitis; Z53.29 Procedure and treatment not carried out because of patient's decision for other reasons; E87.6 Hypokalemia
CPT/HCPCS: 36415; 51702; 71045; 76700; 78452; 80048; 80053; 80076; 83735; 83880; 84145; 84443; 84484; 85025; 85610; 87641; 93005; 93017; 94660; 94664; 96372; 96374; 96375; 97110; 97116; 97161; 97530; 99214; 99285; A9500; C8929; J1650; J1815; J1940; J2270; J2785; J3480; Q9956

== ENCOUNTER 2022-09-29 11:13 | Inpatient (IN) | payer OTHER, SELFPAY ==
[2022-09-29] VITALS (100 sets, daily range): BP systolic 112–133; BP diastolic 71–86; PULSE 60–143; RESP 13–32; TEMP 36.8–36.9; O2SAT 82–99; BMI 40.6
--- NOTE | 2022-09-29 11:19 | W.ED.GENADLT ---
HPI - General Adult General: Chief complaint: Shortness of Breath/Dyspnea Stated complaint: ex edema Time Seen by Provider: 09/29/22 11:18 History of Present Illness: Mr. Amanda is a 76-year-old gentleman with complex past medical history including heart failure with reduced ejection fraction, liver disease, kidney disease, chronic anticoagulation presenting to the emergency department for evaluation of increased lower extremity pain and fullness in the abdomen. He was recently hospitalized and is currently wearing a LifeVest. He reports since discharge he has had increased weight gain including lower extremity edema and he believes that the fluid is backing up into his stomach. He does have mildly decreased exertional tolerance though is at his baseline oxygen requirement. Denies fevers or infectious symptoms. He has been compliant with his medication regimen. Intensity symptoms is moderate to severe. Course has worsened. No other specific changes in health, exacerbating, or alleviating factors identified. Onset (ago): day(s) Severity: severe Associated symptoms: Reports dyspnea and other Review of Systems General: Reports: 10 or more systems reviewed and unremarkable except in HPI and below Resp: Reports: dyspnea PFSH ED PFSH: Medical History Abdominal pain Abnormal nuclear stress test Acute exacerbation of CHF (congestive heart failure) Acute on chronic diastolic (congestive) heart failure Acute on chronic systolic heart failure BRAIN (acute kidney injury) Anasarca Asymptomatic microscopic hematuria Atherosclerotic heart disease Bradycardia Patient has a longstanding history of atrial fibrillation and bradycardia. Chest pain CHF (congestive heart failure) Chronic atrial fibrillation Patient is on long-term oral anticoagulation. Chronic venous insufficiency Cirrhosis COPD (chronic obstructive pulmonary disease) Diabetes Diverticulosis History of nonmelanoma skin cancer Hx of cardiac pacemaker Hyperlipidemia Hypertension Left upper quadrant pain intermediate (current) use of opiate analgesic Non-healing ulcer Onychodystrophy Osteomyelitis Right toe status post debridement and bone biopsy, [facility] 2018 PAD (peripheral artery disease) Patient has two-vessel runoff on the left side and three-vessel runoff on the right side. He has mild to moderate diffuse peripheral arterial disease. Pain management contract signed Sleep apnea SOB (shortness of breath) Patient is known to have COPD Varicose veins of bilateral lower extremities with other complications Surgical History History of hip surgery Hx of artificial lens replacement Hx of cataract extraction Hx of toe surgery Hx of tonsillectomy Family History Father , at age 57 Cancer Mother , at age 91 Cancer breast Other CAD (coronary artery disease) Diabetes Denies family history of Clotting disorder Dementia Chronic kidney disease (CKD) Suicide Anesthesia complication Bleeding disorder Lung disease Stroke Social History Smoking and tobacco status: never smoked Second hand smoke exposure: No Alcohol intake: never Substance/Drug Use: never Lives independently: Yes Household members: spouse Housing: House Marital status: Current occupational status: employed Physical Exam Const: COMMON NORMALS: alert GENERAL APPEARANCE: cooperative and well developed HENMT: COMMON NORMALS: normocephalic and atraumatic HEAD & SCALP: normocephalic and atraumatic Eye: COMMON NORMALS: conjunctivae normal CONJUNCTIVA: Yes conjunctivae normal SCLERA: sclerae normal Neck/C-Spine: COMMON NORMALS: supple GENERAL: Yes trachea midline Resp: COMMON NORMALS: normal respiratory effort EFFORT & INSPECTION: Yes able to speak in complete sentences AUSCULTATION: crackles Cardio: COMMON NORMALS: regular rate and regular rhythm RATE: regular rate RHYTHM: regular rhythm GI: COMMON NORMALS: Soft to palpation PALPATION: Yes Soft to palpation and No Tenderness to palpation present (GI) Extremity: GENERAL: Yes normal exam except as noted and Yes edema Neuro: COMMON NORMALS: moves all extremities SENSORIUM/ORIENTATION: Yes alert and No Orientation impaired Psych: COMMON NORMALS: mental status grossly normal and Normal thought process present THOUGHT PROCESS: Normal thought process present Course Vital Signs: Vital signs: Vital Signs Temperature 97.3 F L 10/11/22 03:32 Pulse Rate 66 10/11/22 05:23 Respiratory Rate 20 H 10/11/22 03:32 Blood Pressure 118/76 10/11/22 03:32 Pulse Oximetry 97 10/11/22 03:32 Oxygen Delivery Me thod CPAP 10/11/22 03:32 Oxygen Flow Rate 2 10/10/22 19:37 Fraction of Inspir ed Oxygen 28 10/02/22 20:00 MDM - General Adult Medical Decision Making 76-year-old gentleman with complex history currently wearing LifeVest presenting for concern over volume overload. Patient does have evidence of volume overload on clinical exam. EKG quite abnormal consistent with history. No STEMI. Labs notable for no leukocytosis, normal hemoglobin and platelet count. Metabolic panel with hypokalemia and BRAIN. Elevated BNP. Chest x-ray demonstrates no acute finding. Clinically patient has evidence of volume overload. He was treated with potassium supplementation and analgesia in the ER. The results of ED evaluation were discussed with the patient including plan for admission due to requirement for level of care not available if discharged to prevent significant worsening/deterioration. Patient agreeable with plan. Discussed with hospitalist service who was agreeable to admit patient. Medical Records I reviewed the patient's medical records. Lab Data I reviewed the patient's lab results. 10/09/22 03:12 10/09/22 03:12 Radiology Impressions C-Arm Fluoroscopy 10/04/22 10:26 IMPRESSION: Intraoperative imaging during dialysis port placement. Chest X-Ray 10/04/22 11:28 IMPRESSION: 1. Right-sided double-lumen catheter appears to extend into the right atrium. 2. Cardiac enlargement with pulmonary vascular congestion suggesting low-grade CHF. Fluid overload might be considered. Paracentesis Ultrasound 10/08/22 09:29 IMPRESSION: Uncomplicated ultrasound-guided paracentesis. Removal of 8000 cc Laboratory Results WBC 7.7 10^3/uL (4.0-10.0) 09/29/22 11:20 RBC 4.39 10^6/uL (4.1-5.3) 09/29/22 11:20 Hgb 12.3 g/dL (11.7-16.6) 09/29/22 11:20 Hct 37.8 % (42.0-52.0) L 09/29/22 11:20 MCV 86.1 fl (80-94) 09/29/22 11:20 MCH 28.0 pg (28.0-34.0) 09/29/22 11:20 MCHC 32.5 g/dL (30.0-36.0) 09/29/22 11:20 RDW 16.1 % (12.1-15.1) H 09/29/22 11:20 Plt Count 202 10^3/cmm (130-400) 09/29/22 11:20 MPV 11.7 fL (7.4-10.4) H 09/29/22 11:20 Neut % (Auto) 78.2 % 09/29/22 11:20 Lymph % (Auto) 11.0 % 09/29/22 11:20 [place] % (Auto) 8.3 % 09/29/22 11:20 Eos % (Auto) 1.6 % 09/29/22 11:20 Baso % (Auto) 0.5 % 09/29/22 11:20 Neut # (Auto) 6.02 10^3/uL (1.8-7.7) 09/29/22 11:20 Lymph # (Auto) 0.9 10^3/uL (0.8-4.8) 09/29/22 11:20 [place] # (Auto) 0.6 10^3/uL (0.2-0.9) 09/29/22 11:20 Eos # (Auto) 0.1 10^3/uL (0.0-0.8) 09/29/22 11:20 Baso # (Auto) 0.0 10^3/uL (0.0-0.1) 09/29/22 11:20 Nucleated RBC % (auto) 0 % 09/29/22 11:20 Nucleated RBCs # 0.0 /100WBC 09/29/22 11:20 Sodium 132 mmol/L (136-145) L 09/29/22 11:20 Potassium 2.6 mmol/L (3.5-5.1) L* 09/29/22 11:20 Chloride 86 mmol/L (98-107) L 09/29/22 11:20 Carbon Dioxide 31 mmol/L (22-29) H 09/29/22 11:20 Anion Gap 17.6 (5-19) 09/29/22 11:20 BUN 80 mg/dL (8-23) H 09/29/22 11:20 Creatinine 2.1 mg/dL (0.7-1.2) H 09/29/22 11:20 GFR Calculation Not Reportable 09/29/22 11:20 Glucose 171 mg/dL (65-115) H 09/29/22 11:20 Calculated Osmolality 302 mOsm/kg (285-295) H 09/29/22 11:20 Calcium 8.9 mg/dL (8.5-10.5) 09/29/22 11:20 Magnesium 2.2 mg/dL (1.7-2.3) 09/29/22 11:20 Total Bilirubin 2.3 mg/dL (0.15-1.2) H 09/29/22 11:20 AST 38 U/L (0-40) 09/29/22 11:20 ALT 13 U/L (0-41) 09/29/22 11:20 Alkaline Phosphatase 198 U/L (40-130) H 09/29/22 11:20 Troponin T Baseline 128 ng/L (0-15) H* 09/29/22 11:20 NT-Pro-B Natriuret Pep 3800 pg/mL (0-450) H 09/29/22 11:20 Total Protein 7.4 g/dL (6.6-8.7) 09/29/22 11:20 Albumin 3.6 g/dL (3.5-5.2) 09/29/22 11:20 Globulin 3.8 g/dL (1.3-4.6) 09/29/22 11:20 Discharge Plan Discharge Patient Disposition: Admitted As Inpatient Admit Provider: Steven Cross Clinical Impression: CHF (congestive heart failure), Cardiomyopathy, CKD (chronic kidney disease), Hypokalemia, Fluid overload Condition: Stable Coding Level of Care Code ED Water Resource Consultant for Myles Boo
--- NOTE | 2022-09-29 11:28 | ECG_ITS ---
[facility] Test Date: 2022-09-29 Pat Name: Refugio Amanda Department: Room: 106 Gender: Male Management Liaison: : 1945 Requested By: Chava Carr Order Number: [id number] Viridiana MD: Danny Blas M.D. Measurements Intervals [place] Rate: 75 P: 0 MD: 0 QRS: -80 QRSD: 226 T: 93 QT: 467 QTc: 522 Interpretive Statements ELECTRONIC VENTRICULAR PACEMAKER Compared to ECG 09/15/2022 23:54:15 Intraventricular conduction delay no longer present ST (T wave) deviation no longer present Electronically Signed On 09-29-2022 13:21:25 CDT by Danny Blas M.D. [email or web address]
--- NOTE | 2022-09-29 11:28 | XR_ITS ---
WS: [id number] EXAMINATION: XR chest 1V portable [id number] REASON FOR EXAM: sob COMPARISON: Previous study ORDER DATE: 09/29/2022 11:30 AM TECHNIQUE: A single, portable frontal chest x-ray was obtained. X-RAY FINDINGS: The lungs are clear. Pleural spaces are clear. No pleural effusions or pneumothorax. There is cardiomegaly. No evidence for pulmonary edema. Soft tissue and osseous structures are unremarkable. A life vest superimposes the chest XR/XR chest 1V portable [id number] IMPRESSION: No acute pulmonary change
[2022-09-29 11:39] LABS: Basophils % 0.5 %; Eosinophils # 0.1 10^3/uL (0.0-0.8); Eosinophils % 1.6 %; Hematocrit 37.8 % (42.0-52.0); Hemoglobin 12.3 g/dL (11.7-16.6); Lymphocytes # 0.9 10^3/uL (0.8-4.8); Mean Corpuscular HGB Conc 32.5 g/dL (30.0-36.0); Mean Corpuscular Volume 86.1 fl (80-94); Mean Platelet Volume 11.7 fL (7.4-10.4); Monocytes # 0.6 10^3/uL (0.2-0.9); Monocytes % 8.3 %; Neutrophils # 6.02 10^3/uL (1.8-7.7); Neutrophils % 78.2 %; Nucleated Red Blood Cells % 0 %; Platelet Count 202 10^3/cmm (130-400); Red Blood Count 4.39 10^6/uL (4.1-5.3); Red Cell Distribution Width 16.1 % (12.1-15.1); White Blood Count 7.7 10^3/uL (4.0-10.0)
[2022-09-29 11:52] LABS: Troponin(5th) Baseline 128 ng/L (0-15)
[2022-09-29 11:59] LABS: Alanine Aminotransferase 13 U/L (0-41); Albumin Level 3.6 g/dL (3.5-5.2); Alkaline Phosphatase 198 U/L (40-130); Anion Gap 17.6 (5-19); Aspartate Amino Transferase 38 U/L (0-40); Blood Urea Nitrogen 80 mg/dL (8-23); Calcium 8.9 mg/dL (8.5-10.5); Carbon Dioxide 31 mmol/L (22-29); Chloride 86 mmol/L (98-107); Globulin 3.8 g/dL (1.3-4.6); Glucose 171 mg/dL (65-115); Magnesium 2.2 mg/dL (1.7-2.3); NT Pro B Type Natriuretic Pept 3800 pg/mL (0-450); Osmolality Calculated 302 mOsm/kg (285-295); Sodium 132 mmol/L (136-145); Total Bilirubin 2.3 mg/dL (0.15-1.2); Total Protein 7.4 g/dL (6.6-8.7)
[2022-09-29 12:02] LABS: Potassium 2.6 mmol/L (3.5-5.1)
--- NOTE | 2022-09-29 12:08 | PC.PHAR ---
PT AND PTS VERIFIED PTS MEDICATIONS-H[place] FROM [place] IF [place] NOT [place] [facility] L[facility] THEN THE PT ISNT TAKING THE MED-PTS STATES THE PT HASNT STARTED OR GOTTEN THE CARVEDILOL 3.125MG BID-PTS STATES SINCE [place] MED LIST DOESNT HAVE ENTRESTO 97-103 BID THEN HE MUST NOT BE TAKING -[facility] med list has mucinex 400mg tid prn-rx written 09/15/22 from [facility]id [facility] for 600 tid prn-pts states what the [facility] sends it what he takes and he takes tid not prn-rx written 09/15/22 levemir flextouch 25 units daily-pt states he uses 25-30 units daily-[facility] med list has 8 units daily prn-notes are made in the pharmacy comments
[2022-09-29] MEDS: morphine 4 mg/mL SDV 1 mL IVP (12:26)
[2022-09-29] MEDS: potassium chloride oral liq 20 mEq/15 mL UDC 40 MEQ PO (12:26)
[2022-09-29] MEDS: lidocaine 1% 5 ML in potassium chloride premix 100 ML 26.25 ML IV (12:27)
--- NOTE | 2022-09-29 13:28 | ECG_ITS ---
[facility] Test Date: 2022-09-29 Pat Name: Refugio Amanda Department: Room: Gender: Male Health/Safety Job Titles: : 1945 Requested By: Chava Carr Order Number: [id number] Viridiana MD: Danny Blas M.D. Measurements Intervals [place] Rate: 67 P: 0 NV: 0 QRS: -82 QRSD: 210 T: 99 QT: 516 QTc: 545 Interpretive Statements ELECTRONIC VENTRICULAR PACEMAKER Compared to ECG 09/29/2022 11:23:02 No significant changes Electronically Signed On 09-29-2022 15:01:24 CDT by Danny Blas M.D. [id number]
--- NOTE | 2022-09-29 13:34 | PM.HP ---
Providers/Chief Complaint Admitting Physician: Steven Cross MD Primary Care Provider: Mary Lou Anaya MD Chief Complaint: ex edema History of Present Illness 76 year old male?with PMHx of NICM, HFrEF (LVEF=20-25% on last echo in 09/2022), IDDM-2,? diabetic peripheral neuropathy,chronicl atrial fibrillation, PAD, CKD and status post cardiac pacemaker procedure..Prior LHC after a abnormal myocardial perfusion imaging that showed 50% eccentric LCx lesion.He was recently discharged from the hospital after being managed for decompensated heart failure, during the last hospital stay patient underwent nuclear stress test, and coronary angiogram was also discussed, based on the stress test result as well as significant drop in EF, along with elevated troponin, but at that time medical management was opted, as the patient is at high risk for ERIC, and potentially landing on hemodialysis, given his underlying CKD, he was discharged on LifeVest, plan was to explore the possibility of [employer] as outpatient. Came in today again with chief complaint of worsening bilateral lower extremity swelling, worsening shortness of breath PND orthopnea, weight gain, increasing abdominal swelling. Currently he is denying any chest pain, palpitation diaphoresis, nausea vomiting. X-ray chest : Showed : No pleural effusions or pneumothorax. There is cardiomegaly. No evidence for pulmonary edema. Pertinent labs: WBC 7.7, H&H 12/37,PLT : 202 , serum sodium 132, serum potassium 2.6, BUN 80,SCR: 2.1 , serum bicarb 31, proBNP 3800, troponin trend; 364-122-6-hour troponin is pending. Patient received IV as well as p.o. potassium in the ER. Review of Systems General: Reports: 10 or more systems reviewed and unremarkable except in HPI and below Const: Denies: fever(s), chills, body aches, change in appetite or diaphoresis Card: Reports: edema, swelling of feet/ankles, dyspnea on exertion and orthopnea; Denies: palpitations or leg pain with exertion Resp: Denies: dyspnea, productive cough, wheezing or pain on inspiration GI: Denies: abdominal pain, nausea, vomiting, diarrhea or constipation : Denies: flank pain or difficulty urinating Musc: Denies: back pain, extremity pain or extremity swelling Neuro: Denies: headache(s), difficulty walking or confusion Medications/Allergies Home Medications Medication Instructions Recorded Confirmed Last Taken Type apixaban 5 mg tablet (Eliquis) 5 mg PO BID 04/09/19 09/29/22 09/29/22 History omeprazole 20 mg capsule,delayed 20 mg PO BID 04/09/19 09/29/22 09/29/22 History release vitamin E (dl, acetate) 450 mg 1,000 unit PO DAILY 04/09/19 09/29/22 11/20/20 History (1,000 unit) capsule pentoxifylline 400 mg 400 mg PO TID 04/12/19 09/29/22 09/29/22 08:30 History tablet,extended release atorvastatin 20 mg tablet 20 mg PO DAILY 04/02/21 09/29/22 Unknown History metolazone 5 mg tablet 5 mg PO EVERY OTHER DAY 06/02/21 09/29/22 09/28/22 History blood-glucose meter,continuous #1 ea 09/09/21 09/29/22 Unknown 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 with 3 custom #1 ea 05/20/22 09/29/22 Unknown Rx inserts bumetanide 2 mg tablet 2 mg PO TID 06/07/22 09/29/22 09/29/22 History blood-glucose sensor (Dexcom G6 #9 ea 07/28/22 09/29/22 Unknown Rx Sensor device) blood-glucose transmitter (Dexcom #1 ea 07/28/22 09/29/22 Unknown Rx G6 Transmitter device) Juzo Lymphedema Wraps Bilaterally #1 ea 08/12/22 09/29/22 Unknown Rx 2 pairs Juzo compression wraps to right #1 ea 08/16/22 09/29/22 Unknown Rx and left oxycodone-acetaminophen 10 mg-325 1 tab PO TID PRN pain 30 days #90 09/13/22 09/29/22 09/29/22 Rx mg tablet tabs acarbose 100 mg tablet 100 mg PO TID 09/15/22 09/29/22 09/29/22 History cinnamon bark 500 mg capsule 500 mg PO BID PRN unknown 09/15/22 09/29/22 Unknown History (Cinnamon) gabapentin 800 mg tablet 800 mg PO TID 09/15/22 09/29/22 09/29/22 History insulin aspart U-100 100 unit/mL See Rx Instructions .Route .COMPLEX 09/15/22 09/29/22 Unknown History (3 mL) subcutaneous pen (Novolog FlexPen U-100 Insulin aspart) insulin detemir U-100 100 unit/mL 25 - 30 unit SUBCUT QAM 09/15/22 09/29/22 09/29/22 History (3 mL) subcutaneous pen (Levemir 30 units FlexTouch U-100 Insulin) levothyroxine 100 mcg tablet 100 mcg PO QAM 09/15/22 09/29/22 09/29/22 History omega-3 fatty acids 1,000 mg 1,000 mg PO BID 09/15/22 09/29/22 09/29/22 History capsule zinc acetate 50 mg (zinc) capsule 50 mg PO DAILY 09/15/22 09/29/22 Unknown History carvedilol 3.125 mg tablet 3.125 mg PO BID 30 days #60 tabs 09/25/22 09/29/22 Unknown Rx capsaicin 0.075 % topical cream 1 applic topical TID PRN Pain 09/29/22 09/29/22 Unknown History carbamide peroxide 6.5 % ear drops See Rx Instructions .Route .COMPLEX 09/29/22 09/29/22 Unknown History clotrimazole 1 % topical cream 1 applic topical DAILY PRN SCALES 09/29/22 09/29/22 Unknown History ON FEET guaifenesin 400 mg tablet 400 mg PO TID 09/29/22 09/29/22 09/29/22 History lactulose 10 gram/15 mL oral 15 ml PO DAILY PRN Constipation 09/29/22 09/29/22 09/28/22 History solution lidocaine 5 % topical patch 1 patch topical DAILY PRN Pain 09/29/22 09/29/22 Unknown History tamsulosin 0.4 mg capsule (Flomax) 0.4 mg PO QPM 09/29/22 09/29/22 09/28/22 History testosterone 2 pump topical DAILY 09/29/22 09/29/22 12 Days Ago History ~09/17/22 Allergies Allergy/AdvReac Type Severity Reaction Status Date / Time lisinopril Allergy Unknown Verified 09/29/22 11:48 PFSH Acute PFSH: Medical History (Updated 09/29/22 @ 18:22 by Steven Cross MD) Abdominal pain Abnormal nuclear stress test Acute exacerbation of CHF (congestive heart failure) Acute on chronic diastolic (congestive) heart failure Acute on chronic systolic heart failure BRAIN (acute kidney injury) Anasarca Asymptomatic microscopic hematuria Atherosclerotic heart disease Bradycardia Patient has a longstanding history of atrial fibrillation and bradycardia. Chest pain CHF (congestive heart failure) Chronic atrial fibrillation Patient is on long-term oral anticoagulation. Chronic venous insufficiency Cirrhosis COPD (chronic obstructive pulmonary disease) Diabetes Diverticulosis History of nonmelanoma skin cancer Hx of cardiac pacemaker Hyperlipidemia Hypertension Left upper quadrant pain half-way (current) use of opiate analgesic Non-healing ulcer Onychodystrophy Osteomyelitis Right toe status post debridement and bone biopsy, [facility] 2018 PAD (peripheral artery disease) Patient has two-vessel runoff on the left side and three-vessel runoff on the right side. He has mild to moderate diffuse peripheral arterial disease. Pain management contract signed Sleep apnea SOB (shortness of breath) Patient is known to have COPD Varicose veins of bilateral lower extremities with other complications Surgical History History of hip surgery Hx of artificial lens replacement Hx of cataract extraction Hx of toe surgery Hx of tonsillectomy Family History Father , at age 57 Cancer Mother , at age 91 Cancer breast Other CAD (coronary artery disease) Diabetes Denies family history of Clotting disorder Dementia Chronic kidney disease (CKD) Suicide Anesthesia complication Bleeding disorder Lung disease Stroke Social History Smoking and tobacco status: never smoked Second hand smoke exposure: No Alcohol intake: never Substance/Drug Use: never Lives independently: Yes Household members: spouse Housing: House Marital status: Current occupational status: employed Vitals/I&O/Wt Last Vital Signs Temp 98.4 F 09/29/22 11:13 Pulse 71 09/29/22 13:08 Resp 20 H 09/29/22 13:08 BP 127/80 09/29/22 13:08 Pulse Ox 96 09/29/22 13:08 O2 Del Method Nasal Cannula 09/29/22 13:08 O2 Flow Rate 2 09/29/22 13:08 Weight last 48 hrs Weight 136.078 kg Physical Exam HENMT: COMMON NORMALS: normocephalic and atraumatic HEAD & SCALP: normocephalic and atraumatic Resp: COMMON NORMALS: clear to auscultation bilaterally Cardio: OTHER: Irregularly irregular rhythm, S1-S2 variable intensity GI: COMMON NORMALS: Soft to palpation, non-tender, No hepatosplenomegaly present and no masses AUSCULTATION: Yes normoactive bowel sounds PALPATION: Yes Soft to palpation and Yes No hepatosplenomegaly present RECTAL EXAM: Yes deferred Extremity: NARRATIVE EXTREMITY EXAM: 3+ bilateral lower extremity pitting edema up to knee Data 09/29/22 11:20 09/29/22 11:20 A&P Assessment and plan (1) CKD (chronic kidney disease): (2) Hypokalemia: (3) CHF (congestive heart failure): (4) COPD (chronic obstructive pulmonary disease): (5) NSTEMI (non-ST elevated myocardial infarction): (6) Abnormal nuclear stress test: Plan 76 year old male?with PMHx of NICM, HFrEF (LVEF=20-25% on last echo in 09/2022), IDDM-2,? diabetic peripheral neuropathy,chronicl atrial fibrillation, PAD, CKD and status post cardiac pacemaker procedure..Prior C after a abnormal myocardial perfusion imaging that showed 50% eccentric LCx lesion. Came in today with chief complaint of worsening bilateral lower extremity swelling, worsening shortness of breath ,orthopnea, weight gain, increasing abdominal swelling. Currently he is being managed for Assessment: Decompensated HFrEF (LVEF=20-25% on last echo in 09/2022). Patient was worsening bilateral lower extremity swelling, orthopnea, weight gain, abdominal swelling Last 2D echo results appreciated: Suggestive of BiV failure Started on Bumex 2 mg IV 3 times daily, metolazone 5 mg p.o. daily Monitor intake output charting Daily weight Monitor electrolytes : K>4, MG>2 Telemetry monitoring NSTEMI: Troponin trend:128-120 EKG has shown: Paced rhythm Possible cardiology consult if needed, currently he is denying any chest pain. Severe hypokalemia: Monitor and replace serum potassium History of atrial fibrillation: Continue carvedilol Continue Eliquis CKD: Serum creatinine is 2.1, more or less appears to be his baseline serum creatinine Monitor BMP for now Monitor intake output charting Monitor electrolytes Avoid nephrotoxic's Possible nephrology consult History of diabetes: LDSSI, monitor fingerstick glucose Elevated total bilirubin: Possible congestive hepatopathy, Liver cirrhosis: Possibly cardiac cirrhosis, secondary to longstanding congestive uropathy CODE STATUS: Full code DVT prophylaxis not needed Eliquis will be sufficient Attestations Medical Necessity Statement*: Patient needs to be in hospital for management of heart failure. Need for IV diuresis. Anticipated length of stay greater 2 midnights Coding Level of Care Code Acute Code for Chg Fwd Diagnoses CKD (chronic kidney disease) N18.9 Hypokalemia E87.6 CHF (congestive heart failure) I50.9 COPD (chronic obstructive pulmonary disease) J44.9 NSTEMI (non-ST elevated myocardial infarction) I21.4 Abnormal nuclear stress test R94.39
[2022-09-29 14:28] LABS: Troponin 5 2HR 120.5 ng/L (0-15); Troponin 5 2HR Delta -7.5 ABS# (0-10)
[2022-09-29] MEDS: gabapentin 400 mg Capsule 800 MG PO ×2 (15:15→20:14)
[2022-09-29] MEDS: bumetanide 0.25 mg/mL SDV 10 mL 2 MG IVP ×2 (15:15→22:32)
[2022-09-29 15:37] LABS: Add Urine Microscopic? NO; Charge for UA Resulting for Rev
[2022-09-29 15:47] LABS: Bilirubin Urine Neg (Negative); Blood Urine Neg (Negative); Glucose Urine UA Norm (Normal); Ketones Urine Negative (Negative); Leukocyte Esterase Urine Negative (Negative); Nitrate Urine Negative (Negative); Protein Urine Neg (Negative); Urine Appearance Clear (CLEAR); Urine Color Yellow (Yellow); Urobilinogen Urine Norm (Negative); pH Urine 5 (5-7)
[2022-09-29] MEDS: tamsulosin 0.4 mg Capsule PO (17:16)
[2022-09-29] MEDS: pantoprazole DR 40 mg Tablet PO (17:16)
[2022-09-29] MEDS: apixaban 5 mg Tablet PO (17:16)
[2022-09-29 18:38] LABS: Troponin 5 6HR 112.5 ng/L (0-15); Troponin 5 6HR Delta -15.5 ng/L (0-12)
[2022-09-29] MEDS: carvedilol 3.125 mg Tablet PO (20:14)
[2022-09-30] VITALS (75 sets, daily range): BP systolic 102–128; BP diastolic 69–83; PULSE 58–101; RESP 13–31; TEMP 36.1–36.5; O2SAT 88–98
[2022-09-30 03:12] LABS: Basophils # 0.1 10^3/uL (0.0-0.1); Basophils % 0.9 %; Eosinophils # 0.2 10^3/uL (0.0-0.8); Eosinophils % 3.5 %; Hematocrit 32.9 % (42.0-52.0); Hemoglobin 10.8 g/dL (11.7-16.6); Lymphocytes # 0.8 10^3/uL (0.8-4.8); Lymphocytes % 11.5 %; Mean Corpuscular HGB Conc 32.8 g/dL (30.0-36.0); Mean Corpuscular Volume 85.2 fl (80-94); Mean Platelet Volume 11.5 fL (7.4-10.4); Monocytes # 0.7 10^3/uL (0.2-0.9); Monocytes % 10.9 %; Neutrophils # 4.95 10^3/uL (1.8-7.7); Neutrophils % 72.8 %; Nucleated Red Blood Cells % 0 %; Platelet Count 188 10^3/cmm (130-400); Red Blood Count 3.86 10^6/uL (4.1-5.3); Red Cell Distribution Width 16.3 % (12.1-15.1); White Blood Count 6.8 10^3/uL (4.0-10.0)
[2022-09-30 03:34] LABS: Alanine Aminotransferase 13 U/L (0-41); Albumin Level 3.1 g/dL (3.5-5.2); Alkaline Phosphatase 181 U/L (40-130); Anion Gap 14.6 (5-19); Aspartate Amino Transferase 32 U/L (0-40); Calcium 8.7 mg/dL (8.5-10.5); Carbon Dioxide 31 mmol/L (22-29); Chloride 90 mmol/L (98-107); Globulin 3.4 g/dL (1.3-4.6); Glucose 166 mg/dL (65-115); Magnesium 2.2 mg/dL (1.7-2.3); Osmolality Calculated 305 mOsm/kg (285-295); Sodium 133 mmol/L (136-145); Total Bilirubin 1.7 mg/dL (0.15-1.2); Total Protein 6.5 g/dL (6.6-8.7)
[2022-09-30 03:38] LABS: Potassium 2.6 mmol/L (3.5-5.1)
[2022-09-30] MEDS: oxyCODONE-APAP 10-325 mg Tablet 1 TAB PO ×3 (03:55→21:04)
[2022-09-30] MEDS: bumetanide 0.25 mg/mL SDV 10 mL 2 MG IVP ×3 (05:40→21:59)
[2022-09-30] MEDS: levothyroxine 100 mcg Tablet PO (05:40)
--- NOTE | 2022-09-30 07:12 | PC.NURSE ---
Pt refused accucheck, has Dexcom. Blood sugar reading on dexom was 163.
[2022-09-30] MEDS: insulin lispro 100 unit/1 mL SUBCUT ×2 (08:17→17:34)
[2022-09-30] MEDS: pantoprazole DR 40 mg Tablet PO ×2 (08:18→17:34)
[2022-09-30] MEDS: carvedilol 3.125 mg Tablet PO ×2 (08:18→20:10)
[2022-09-30] MEDS: atorvastatin 40 mg Tablet 20 MG PO (08:19)
[2022-09-30] MEDS: metOLazone 5 MG Tablet PO (08:19)
[2022-09-30] MEDS: apixaban 5 mg Tablet PO ×2 (08:19→17:34)
[2022-09-30] MEDS: gabapentin 400 mg Capsule 800 MG PO ×3 (08:20→20:10)
[2022-09-30] MEDS: lidocaine 1% 5 ML in potassium chloride premix 100 ML 26.25 ML IV (09:26)
--- NOTE | 2022-09-30 11:21 | PC.NURSE ---
Patient refused accu-check at 1125. His personal dexcom read 128 at 1125.
[2022-09-30] MEDS: albumin 25 G/100 ML BAG 60 G IV ×2 (14:22→21:05)
--- NOTE | 2022-09-30 16:37 | PM.PN ---
Subjective Subjective: Patient was seen and examined this morning, had good urine output overnight around 1900 cc, hypokalemia was noted this morning, serum potassium correction has been taken, BUN is slowly creeping up, serum creatinine has remained more or less at baseline. Medications: Medication Review Details: Generic Name Dose Route Start Last Admin Trade Name Freq PRN Reason Stop Dose Admin Apixaban 5 mg 09/29/22 18:00 09/30/22 17:34 Apixaban 5 Mg Ta blet PO 5 mg BID JAIR Administration Atorvastatin Calci um 20 mg 09/30/22 09:00 09/30/22 08:19 Atorvastatin 40 Mg Tablet PO 20 mg DAILY JAIR Administration Bumetanide 2 mg 09/29/22 14:00 09/30/22 15:22 Bumetanide 0.25 Mg/Ml Sdv 10 Ml IVP 2 mg Q8H JAIR Administration Carvedilol 3.125 mg 09/29/22 21:00 09/30/22 08:18 Carvedilol 3.125 Mg Tablet PO 3.125 mg BID@0900,2100 JAIR Administration Gabapentin 800 mg 09/29/22 15:00 09/30/22 15:22 Gabapentin 400 M g Capsule PO 800 mg TID JAIR Administration Insulin Human Lisp ro 0 unit 09/30/22 08:00 09/30/22 17:34 Insulin Lispro 1 00 Unit/1 Ml SUBCUT 4 unit TIDWM JAIR Administration Protocol Levothyroxine Sodi um 100 mcg 09/30/22 06:00 09/30/22 05:40 Levothyroxine 10 0 Mcg Tablet PO 100 mcg QAM JAIR Administration Metolazone 5 mg 09/30/22 09:00 09/30/22 08:19 Metolazone 5 Mg Tablet PO 5 mg DAILY JAIR Administration Non-Formulary Medi cation 100 mg 09/29/22 15:00 09/30/22 16:31 Acarbose PO Not Given TID [facility] Non-Formulary Medi cation 400 mg 09/29/22 15:00 09/30/22 16:31 Guaifenesin PO Not Given TID JAIR Non-Formulary Medi cation 400 mg 09/29/22 21:00 09/30/22 16:31 Pentoxifylline PO Not Given TID [facility] Oxycodone/Acetamin ophen 1 tab 09/29/22 13:31 09/30/22 13:07 Oxycodone-Apap 1 0-325 Mg Tablet PO 1 tab TID PRN Administration MODERATE TO SEVER E pain Pantoprazole Sodiu m 40 mg 09/29/22 18:00 09/30/22 17:[address] 40 Mg Tablet PO 40 mg BID JAIR Administration Tamsulosin HCl 0.4 mg 09/29/22 18:00 09/30/22 17:34 Tamsulosin 0.4 M g Capsule PO 0.4 mg QPM JAIR Administration Vitals/I&O/Wt Last Vital Signs Temp 97.1 F L 09/30/22 12:13 Pulse 62 09/30/22 14:00 Resp 26 H 09/30/22 13:07 BP 102/69 09/30/22 12:13 Pulse Ox 96 09/30/22 13:07 O2 Del Method Nasal Cannula 09/30/22 12:13 O2 Flow Rate 2 09/30/22 12:13 FiO2 30 09/29/22 23:56 09/30/22 09/30/22 09/30/22 06:59 14:59 22:59 Intake Total 705 / 705 Output Total 1600 / 1900 325 / 335 Balance -1600 / -1315 695 / 695 -325 / 370 Weight last 48 hrs Weight 136.078 kg Physical Exam HENMT: COMMON NORMALS: normocephalic and atraumatic HEAD & SCALP: normocephalic and atraumatic Resp: COMMON NORMALS: clear to auscultation bilaterally AUSCULTATION: clear to auscultation bilaterally Cardio: OTHER: Irregularly irregular rhythm, S1-S2 variable intensity GI: COMMON NORMALS: Normal to inspection, nondistended, normoactive bowel sounds present, Soft to palpation, non-tender, No hepatosplenomegaly present and no masses AUSCULTATION: Yes normoactive bowel sounds PALPATION: Yes Soft to palpation and Yes No hepatosplenomegaly present RECTAL EXAM: Yes deferred Extremity: NARRATIVE EXTREMITY EXAM: 3+ bilateral lower extremity pitting edema up to knee Urinary Catheter Management: Douglas: Cath Placed During This Visit: yes Reason for Continuing Indwelling Catheter: Accurate Measurement of Urinary Output in Critically Ill Patients Urinary Catheter Date of Insertion: 09/29/22 Urinary Catheter Time of Insertion: 15:00 Data 09/30/22 02:41 09/30/22 02:41 A&P Assessment and plan (1) CKD (chronic kidney disease): (2) Hypokalemia: (3) CHF (congestive heart failure): (4) COPD (chronic obstructive pulmonary disease): (5) NSTEMI (non-ST elevated myocardial infarction): (6) Abnormal nuclear stress test: Plan 76 year old male?with PMHx of NICM, HFrEF (LVEF=20-25% on last echo in 09/2022), IDDM-2,? diabetic peripheral neuropathy,chronicl atrial fibrillation, PAD, CKD and status post cardiac pacemaker procedure..Prior LHC after a abnormal myocardial perfusion imaging that showed 50% eccentric LCx lesion. Came in today with chief complaint of worsening bilateral lower extremity swelling, worsening shortness of breath ,orthopnea, weight gain, increasing abdominal swelling. Currently he is being managed for Assessment: Decompensated HFrEF (LVEF=20-25% on last echo in 09/2022). Patient was worsening bilateral lower extremity swelling, orthopnea, weight gain, abdominal swelling Last 2D echo results appreciated: Suggestive of BiV failure Started on Bumex 2 mg IV 3 times daily, metolazone 5 mg p.o. daily Monitor intake output charting Daily weight Monitor electrolytes : K>4, MG>2 Telemetry monitoring NSTEMI: Troponin trend:128-120 EKG has shown: Paced rhythm Possible cardiology consult if needed, currently he is denying any chest pain. Severe hypokalemia: Monitor and replace serum potassium History of atrial fibrillation: Continue carvedilol Continue Eliquis CKD: Serum creatinine is 2.1, more or less appears to be his baseline serum creatinine Monitor BMP for now Monitor intake output charting Monitor electrolytes Avoid nephrotoxic's Possible nephrology consult History of diabetes: LDSSI, monitor fingerstick glucose Elevated total bilirubin: Possible congestive hepatopathy, Liver cirrhosis: Possibly cardiac cirrhosis, secondary to longstanding congestive uropathy CODE STATUS: Full code DVT prophylaxis not needed Eliquis will be sufficient Attestations Medical Necessity Statement*: Needs to be in hospital for management of decompensated heart failure. Coding Level of Care Code Acute Code for Chg Fwd Diagnoses CKD (chronic kidney disease) N18.9 Hypokalemia E87.6 CHF (congestive heart failure) I50.9 COPD (chronic obstructive pulmonary disease) J44.9 NSTEMI (non-ST elevated myocardial infarction) I21.4 Abnormal nuclear stress test R94.39
--- NOTE | 2022-09-30 17:26 | PC.NURSE ---
Patient refused accu-check at 1700. His personal dexacom read 196 at 1700.
[2022-09-30] MEDS: tamsulosin 0.4 mg Capsule PO (17:34)
[2022-09-30] MEDS: bisacodyl 5 mg Tablet 10 MG PO (20:10)
--- NOTE | 2022-09-30 20:51 | PC.NURSE ---
Patient refuses accuchecks, gets blood glucose reading off his dexcom. Blood glucose was 214 at this time.
[2022-10-01] VITALS (33 sets, daily range): BP systolic 103–134; BP diastolic 44–95; PULSE 60–93; RESP 11–37; TEMP 35.8–36.7; O2SAT 80–99
[2022-10-01 02:30] LABS: Basophils % 0.5 %; Eosinophils # 0.3 10^3/uL (0.0-0.8); Eosinophils % 3.5 %; Hematocrit 34.6 % (42.0-52.0); Hemoglobin 11.1 g/dL (11.7-16.6); Lymphocytes # 0.9 10^3/uL (0.8-4.8); Lymphocytes % 12.6 %; Mean Corpuscular HGB Conc 32.1 g/dL (30.0-36.0); Mean Corpuscular Hemoglobin 27.7 pg (28.0-34.0); Mean Corpuscular Volume 86.3 fl (80-94); Mean Platelet Volume 11.4 fL (7.4-10.4); Monocytes # 0.8 10^3/uL (0.2-0.9); Monocytes % 10.9 %; Neutrophils # 5.28 10^3/uL (1.8-7.7); Neutrophils % 72.1 %; Nucleated Red Blood Cells % 0 %; Platelet Count 193 10^3/cmm (130-400); Red Blood Count 4.01 10^6/uL (4.1-5.3); Red Cell Distribution Width 16.2 % (12.1-15.1); White Blood Count 7.3 10^3/uL (4.0-10.0)
[2022-10-01 02:54] LABS: Alanine Aminotransferase 12 U/L (0-41); Albumin Level 3.6 g/dL (3.5-5.2); Alkaline Phosphatase 180 U/L (40-130); Anion Gap 16.3 (5-19); Aspartate Amino Transferase 31 U/L (0-40); Calcium 8.7 mg/dL (8.5-10.5); Carbon Dioxide 32 mmol/L (22-29); Chloride 87 mmol/L (98-107); Globulin 3.1 g/dL (1.3-4.6); Glucose 188 mg/dL (65-115); Osmolality Calculated 306 mOsm/kg (285-295); Potassium 3.3 mmol/L (3.5-5.1); Sodium 132 mmol/L (136-145); Total Bilirubin 1.8 mg/dL (0.15-1.2); Total Protein 6.7 g/dL (6.6-8.7)
[2022-10-01 03:08] LABS: Blood Urea Nitrogen 89 mg/dL (8-23)
--- NOTE | 2022-10-01 03:44 | PC.NURSE ---
Messaged regarding patient raising BUN 89 and creatinine 2.4. Nephrology has been discussed but no consult ordered yet. aware, wanted to know who the attending was for the day. No new orders at this time.
[2022-10-01] MEDS: bumetanide 0.25 mg/mL SDV 10 mL 2 MG IVP (05:35)
[2022-10-01] MEDS: levothyroxine 100 mcg Tablet PO (05:35)
--- NOTE | 2022-10-01 05:58 | PC.NURSE ---
Patient refused accucheck, blood glucose on patients dexcom was 187.
[2022-10-01] MEDS: insulin lispro 100 unit/1 mL SUBCUT ×3 (08:16→18:01)
[2022-10-01] MEDS: metOLazone 5 MG Tablet PO (08:16)
[2022-10-01] MEDS: atorvastatin 40 mg Tablet 20 MG PO (08:17)
[2022-10-01] MEDS: gabapentin 400 mg Capsule 800 MG PO ×2 (08:17→14:42)
[2022-10-01] MEDS: apixaban 5 mg Tablet PO (08:17)
[2022-10-01] MEDS: carvedilol 3.125 mg Tablet PO ×2 (08:17→20:06)
[2022-10-01] MEDS: pantoprazole DR 40 mg Tablet PO ×2 (08:17→18:02)
[2022-10-01] MEDS: potassium chloride ER 20 mEq Tablet 40 MEQ PO (10:00)
[2022-10-01] MEDS: oxyCODONE-APAP 10-325 mg Tablet 1 TAB PO ×3 (10:09→23:31)
--- NOTE | 2022-10-01 10:12 | PC.CHAP ---
Pastoral Care Encounter/Spiritual Assessment Type of Contact [] Declined film sound coordinator visit [] Patient/Family/Request visit [] Outpatient visit [] Follow-up visit [] Physician referral [] Code/Alert [x] Routine visit [] Staff referral [] Actively dying [] Patient sleeping [] Family support [] [] Out of room [] Palliative care [] [] Receiving care in room [] Pre-surgical visit [] Trauma [] Long length of stay [] ICU visit [] Other: Relational/Emotional Strength [x] Patient feels connected with others/family/visitors/staff [] Distress [] Loneliness/isolation [] Abandonment Spirituality of Patient [x] Person of Isabel [x] Attends Muslim of their Isabel [x] Believes in Prayer [x] Reads Bible or Yazidi materials [] There are Spiritual issues to be addressed 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 Interventions [x] Prayer [x] Active listening [x] Non-anxious presence x] Spiritual/emotional support [] Crisis/trauma care [] Spiritual counseling [] Bereavement support [] Provided bereavement packet [] Provided Bible/devotional materials [] Provided toy/stuffed animal, coloring book to patient or family member [] Provided Communion [] Anointing/[place] [] Salvation [x] Completed spiritual assessment [] Other: Impact on Illness or Injury [] Angry [] Fearful [] Anxious [] Often cries [] Exhaustion [] Unable to work [] Unable to attend zoroastrianism [] Unable to walk/stand [] Unable to read [] Unable to drive [] Unable to eat/drink [] Unable to sleep [] Unable to be with family [] Patient intubated [] Other: Summary Time spent with patient 20 min
--- NOTE | 2022-10-01 10:23 | PM.PN ---
Subjective Subjective: Patient was seen and examined this morning, shortness of breath and bilateral lower extremity swelling is improving, documented urine output in last 24 hours 750 cc, BUN and serum creatinine has further trended up, will hold on any further dose of Bumex, renal has been consulted to assist with the kidney function. Medications: Medication Review Details: Generic Name Dose Route Start Last Admin Trade Name Freq PRN Reason Stop Dose Admin Apixaban 5 mg 09/29/22 18:00 10/01/22 08:17 Apixaban 5 Mg Ta blet PO 5 mg BID JAIR Administration Atorvastatin Calci um 20 mg 09/30/22 09:00 10/01/22 08:17 Atorvastatin 40 Mg Tablet PO 20 mg DAILY JAIR Administration Bisacodyl 10 mg 09/29/22 13:26 09/30/22 20:10 Bisacodyl 5 Mg T ablet PO 10 mg DAILY PRN Administration Constipation (see protocol) Protocol Bumetanide 2 mg 09/29/22 14:00 10/01/22 05:35 Bumetanide 0.25 Mg/Ml Sdv 10 Ml IVP 2 mg Q8H JAIR Administration Carvedilol 3.125 mg 09/29/22 21:00 10/01/22 08:17 Carvedilol 3.125 Mg Tablet PO 3.125 mg BID@0900,2100 JAIR Administration Gabapentin 800 mg 09/29/22 15:00 10/01/22 08:17 Gabapentin 400 M g Capsule PO 800 mg TID JAIR Administration Insulin Human Lisp ro 0 unit 09/30/22 08:00 10/01/22 08:16 Insulin Lispro 1 00 Unit/1 Ml SUBCUT 4 unit TIDWM JAIR Administration Protocol Levothyroxine Sodi um 100 mcg 09/30/22 06:00 10/01/22 05:35 Levothyroxine 10 0 Mcg Tablet PO 100 mcg QAM JAIR Administration Metolazone 5 mg 09/30/22 09:00 10/01/22 08:16 Metolazone 5 Mg Tablet PO 5 mg DAILY JAIR Administration Non-Formulary Medi cation 100 mg 09/29/22 15:00 10/01/22 10:13 Acarbose PO Not Given TID JAIR Non-Formulary Medi cation 400 mg 09/29/22 15:00 10/01/22 10:13 Guaifenesin PO Not Given TID JAIR Non-Formulary Medi cation 400 mg 09/29/22 21:00 10/01/22 10:13 Pentoxifylline PO Not Given TID [facility] Oxycodone/Acetamin ophen 1 tab 09/29/22 13:31 10/01/22 10:09 Oxycodone-Apap 1 0-325 Mg Tablet PO 1 tab TID PRN Administration MODERATE TO SEVER E pain Pantoprazole Sodiu m 40 mg 09/29/22 18:00 10/01/22 08:[address] 40 Mg Tablet PO 40 mg BID JAIR Administration Tamsulosin HCl 0.4 mg 09/29/22 18:00 09/30/22 17:34 Tamsulosin 0.4 M g Capsule PO 0.4 mg QPM JAIR Administration Vitals/I&O/Wt Last Vital Signs Temp 96.4 F L 10/01/22 08:03 Pulse 72 10/01/22 08:03 Resp 20 H 10/01/22 10:09 BP 118/80 10/01/22 08:03 Pulse Ox 93 10/01/22 10:09 O2 Del Method Nasal Cannula 10/01/22 08:03 O2 Flow Rate 1.5 10/01/22 08:03 FiO2 28 09/30/22 20:00 09/30/22 10/01/22 10/01/22 22:59 06:59 14:59 Intake Total 920 / 1625 620 / 2245 360 / 360 Output Total 600 / 610 150 / 760 Balance 320 / 1015 470 / 1485 360 / 360 Weight last 48 hrs Weight 136.078 kg Physical Exam HENMT: COMMON NORMALS: normocephalic and atraumatic HEAD & SCALP: normocephalic and atraumatic Resp: COMMON NORMALS: clear to auscultation bilaterally AUSCULTATION: clear to auscultation bilaterally Cardio: OTHER: Irregularly irregular rhythm, S1-S2 variable intensity GI: COMMON NORMALS: Normal to inspection, nondistended, normoactive bowel sounds present, Soft to palpation, non-tender, No hepatosplenomegaly present and no masses AUSCULTATION: Yes normoactive bowel sounds PALPATION: Yes Soft to palpation and Yes No hepatosplenomegaly present RECTAL EXAM: Yes deferred Extremity: NARRATIVE EXTREMITY EXAM: 3+ bilateral lower extremity pitting edema up to knee Urinary Catheter Management: Douglas: Cath Placed During This Visit: yes Reason for Continuing Indwelling Catheter: Acute Urinary Retention or Obstruction Urinary Catheter Date of Insertion: 09/29/22 Urinary Catheter Time of Insertion: 15:00 Data 10/01/22 01:36 10/01/22 01:36 A&P Assessment and plan (1) CKD (chronic kidney disease): (2) Hypokalemia: (3) CHF (congestive heart failure): (4) COPD (chronic obstructive pulmonary disease): (5) NSTEMI (non-ST elevated myocardial infarction): (6) Abnormal nuclear stress test: Plan 76 year old male?with PMHx of NICM, HFrEF (LVEF=20-25% on last echo in 09/2022), IDDM-2,? diabetic peripheral neuropathy,chronicl atrial fibrillation, PAD, CKD and status post cardiac pacemaker procedure..Prior LHC after a abnormal myocardial perfusion imaging that showed 50% eccentric LCx lesion. Came in today with chief complaint of worsening bilateral lower extremity swelling, worsening shortness of breath ,orthopnea, weight gain, increasing abdominal swelling. Currently he is being managed for Assessment: Decompensated HFrEF (LVEF=20-25% on last echo in 09/2022). Patient was worsening bilateral lower extremity swelling, orthopnea, weight gain, abdominal swelling Last 2D echo results appreciated: Suggestive of BiV failure Was on Bumex 2 mg IV 3 times daily, metolazone 5 mg p.o. daily currently on hold. Monitor intake output charting Daily weight Monitor electrolytes : K>4, MG>2 Telemetry monitoring NSTEMI: Troponin trend:128-120 EKG has shown: Paced rhythm Possible cardiology consult if needed, currently he is denying any chest pain. Severe hypokalemia: Monitor and replace serum potassium History of atrial fibrillation: Continue carvedilol Continue Eliquis BRAIN ON CKD: Admission serum creatinine is 2.1, more or less appears to be his baseline serum creatinine Monitor BMP for now Monitor intake output charting Monitor electrolytes Avoid nephrotoxic's Possible nephrology consult History of Diabetes: LDSSI, monitor fingerstick glucose Elevated total bilirubin: Possible congestive hepatopathy, Liver cirrhosis: Possibly cardiac cirrhosis, secondary to longstanding congestive uropathy CODE STATUS: Full code DVT prophylaxis not needed Eliquis will be sufficient Attestations Medical Necessity Statement*: In Hospital for monitoring of kidney function and heart failure. Coding Level of Care Code Acute Code for Chg Fwd Diagnoses CKD (chronic kidney disease) N18.9 Hypokalemia E87.6 CHF (congestive heart failure) I50.9 COPD (chronic obstructive pulmonary disease) J44.9 NSTEMI (non-ST elevated myocardial infarction) I21.4 Abnormal nuclear stress test R94.39
--- NOTE | 2022-10-01 11:23 | PC.NURSE ---
Patient refused an accu-check at 1120. His personal dexacom read 238 at 1120
--- NOTE | 2022-10-01 14:06 | P.CONIM_ITS ---
Providers/Reason For Consult Consulting Physician/Specialty*: Melissa Meng DO, telenephrology Reason for Consult*: Acute kidney injury, Chronic kidney disease Requesting Physician: Steven Cross MD Attending Physician: Steven Cross MD Primary Care Provider: Mary Lou Anaya MD History of Present Illness History of Present Illness Refugio Amanda is a 76 year old male presented to ER yesterday for evaluation of worsening edema and shortness of breath. Discharged 5 days ago, after treatment for decompenated heart failure. States he has not been able to sleep due to shortness of breath. Unable to weigh himself at home legs too heavy. Review of Systems Const: Reports: fatigue and change in sleep pattern Card: Denies: chest pain Resp: Reports: dyspnea and other (orthopnea) Medications/Allergies Home Medications Medication Instructions Recorded Confirmed Last Taken Type apixaban 5 mg tablet (Eliquis) 5 mg PO BID 04/09/19 09/29/22 09/29/22 History omeprazole 20 mg capsule,delayed 20 mg PO BID 04/09/19 09/29/22 09/29/22 History release vitamin E (dl, acetate) 450 mg 1,000 unit PO DAILY 04/09/19 09/29/22 11/20/20 History (1,000 unit) capsule pentoxifylline 400 mg 400 mg PO TID 04/12/19 09/29/22 09/29/22 08:30 History tablet,extended release atorvastatin 20 mg tablet 20 mg PO DAILY 04/02/21 09/29/22 Unknown History metolazone 5 mg tablet 5 mg PO EVERY OTHER DAY 06/02/21 09/29/22 09/28/22 History blood-glucose meter,continuous #1 ea 09/09/21 09/29/22 Unknown Rx ([employer]) diabetic shoes with 3 custom #1 ea 05/20/22 09/29/22 Unknown Rx inserts bumetanide 2 mg tablet 2 mg PO TID 06/07/22 09/29/22 09/29/22 History blood-glucose sensor (Dexcom G6 #9 ea 07/28/22 09/29/22 Unknown Rx Sensor device) blood-glucose transmitter (Dexcom #1 ea 07/28/22 09/29/22 Unknown Rx G6 Transmitter device) Juzo Lymphedema Wraps Bilaterally #1 ea 08/12/22 09/29/22 Unknown Rx 2 pairs Juzo compression wraps to right #1 ea 08/16/22 09/29/22 Unknown Rx and left oxycodone-acetaminophen 10 mg-325 1 tab PO TID PRN pain 30 days #90 09/13/22 09/29/22 09/29/22 Rx mg tablet tabs acarbose 100 mg tablet 100 mg PO TID 09/15/22 09/29/22 09/29/22 History cinnamon bark 500 mg capsule 500 mg PO BID PRN unknown 09/15/22 09/29/22 Unknown History (Cinnamon) gabapentin 800 mg tablet 800 mg PO TID 09/15/22 09/29/22 09/29/22 History insulin aspart U-100 100 unit/mL See Rx Instructions .Route .COMPLEX 09/15/22 09/29/22 Unknown History (3 mL) subcutaneous pen (Novolog FlexPen U-100 Insulin aspart) insulin detemir U-100 100 unit/mL 25 - 30 unit SUBCUT QAM 09/15/22 09/29/22 09/29/22 History (3 mL) subcutaneous pen (Levemir 30 units FlexTouch U-100 Insulin) levothyroxine 100 mcg tablet 100 mcg PO QAM 09/15/22 09/29/22 09/29/22 History omega-3 fatty acids 1,000 mg 1,000 mg PO BID 09/15/22 09/29/22 09/29/22 History capsule zinc acetate 50 mg (zinc) capsule 50 mg PO DAILY 09/15/22 09/29/22 Unknown History carvedilol 3.125 mg tablet 3.125 mg PO BID 30 days #60 tabs 09/25/22 09/29/22 Unknown Rx capsaicin 0.075 % topical cream 1 applic topical TID PRN Pain 09/29/22 09/29/22 Unknown History carbamide peroxide 6.5 % ear drops See Rx Instructions .Route .COMPLEX 09/29/22 09/29/22 Unknown History clotrimazole 1 % topical cream 1 applic topical DAILY PRN SCALES 09/29/22 09/29/22 Unknown History ON FEET guaifenesin 400 mg tablet 400 mg PO TID 09/29/22 09/29/22 09/29/22 History lactulose 10 gram/15 mL oral 15 ml PO DAILY PRN Constipation 09/29/22 09/29/22 09/28/22 History solution lidocaine 5 % topical patch 1 patch topical DAILY PRN Pain 09/29/22 09/29/22 Unknown History tamsulosin 0.4 mg capsule (Flomax) 0.4 mg PO QPM 09/29/22 09/29/22 09/28/22 History testosterone 2 pump topical DAILY 09/29/22 09/29/22 12 Days Ago History ~09/17/22 Allergies Allergy/AdvReac Type Severity Reaction Status Date / Time lisinopril Allergy Unknown Verified 09/29/22 11:48 Current Medications Generic Name Dose Route Start Last Admin Trade Name Freq PRN Reason Stop Dose Admin Apixaban 5 mg 09/29/22 18:00 10/01/22 08:17 Apixaban 5 Mg Tablet PO 5 mg BID JAIR Administration Atorvastatin Calcium 20 mg 09/30/22 09:00 10/01/22 08:17 Atorvastatin 40 Mg Tablet PO 20 mg DAILY JAIR Administration Bisacodyl 10 mg 09/29/22 13:26 09/30/22 20:10 Bisacodyl 5 Mg Tablet PO 10 mg DAILY PRN Administration Constipation (see protocol) Protocol Bumetanide 2 mg 09/29/22 14:00 10/01/22 05:35 Bumetanide 0.25 Mg/Ml Sdv 10 Ml IVP 2 mg Q8H JAIR Administration Carvedilol 3.125 mg 09/29/22 21:00 10/01/22 08:17 Carvedilol 3.125 Mg Tablet PO 3.125 mg BID@0900,2100 JAIR Administration Gabapentin 800 mg 09/29/22 15:00 10/01/22 08:17 Gabapentin 400 Mg Capsule PO 800 mg TID JAIR Administration Insulin Human Lispro 0 unit 09/30/22 08:00 10/01/22 12:06 Insulin Lispro 100 Unit/1 Ml SUBCUT 6 unit TIDWM JAIR Administration Protocol Levothyroxine Sodium 100 mcg 09/30/22 06:00 10/01/22 05:35 Levothyroxine 100 Mcg Tablet PO 100 mcg QAM JAIR Administration Metolazone 5 mg 09/30/22 09:00 10/01/22 08:16 Metolazone 5 Mg Tablet PO 5 mg DAILY JAIR Administration Non-Formulary Medication 100 mg 09/29/22 15:00 10/01/22 10:13 Acarbose PO Not Given TID [facility] Non-Formulary Medication 400 mg 09/29/22 15:00 10/01/22 10:13 Guaifenesin PO Not Given TID [facility] Non-Formulary Medication 400 mg 09/29/22 21:00 10/01/22 10:13 Pentoxifylline PO Not Given TID JAIR Oxycodone/Acetaminophen 1 tab 09/29/22 13:31 10/01/22 10:09 Oxycodone-Apap 10-325 Mg Tablet PO 1 tab TID PRN Administration MODERATE TO SEVERE pain Pantoprazole Sodium 40 mg 09/29/22 18:00 10/01/22 08:[address] 40 Mg Tablet PO 40 mg BID JAIR Administration Tamsulosin HCl 0.4 mg 09/29/22 18:00 09/30/22 17:34 Tamsulosin 0.4 Mg Capsule PO 0.4 mg QPM JAIR Administration PFSH Acute PFSH: Medical History Abdominal pain Abnormal nuclear stress test Acute exacerbation of CHF (congestive heart failure) Acute on chronic diastolic (congestive) heart failure Acute on chronic systolic heart failure BRAIN (acute kidney injury) Anasarca Asymptomatic microscopic hematuria Atherosclerotic heart disease Bradycardia Patient has a longstanding history of atrial fibrillation and bradycardia. Chest pain CHF (congestive heart failure) Chronic atrial fibrillation Patient is on long-term oral anticoagulation. Chronic venous insufficiency Cirrhosis COPD (chronic obstructive pulmonary disease) Diabetes Diverticulosis History of nonmelanoma skin cancer Hx of cardiac pacemaker Hyperlipidemia Hypertension Left upper quadrant pain senior care (current) use of opiate analgesic Non-healing ulcer Onychodystrophy Osteomyelitis Right toe status post debridement and bone biopsy, [facility] 2018 PAD (peripheral artery disease) Patient has two-vessel runoff on the left side and three-vessel runoff on the right side. He has mild to moderate diffuse peripheral arterial disease. Pain management contract signed Sleep apnea SOB (shortness of breath) Patient is known to have COPD Varicose veins of bilateral lower extremities with other complications Surgical History History of hip surgery Hx of artificial lens replacement Hx of cataract extraction Hx of toe surgery Hx of tonsillectomy Family History Father , at age 57 Cancer Mother , at age 91 Cancer breast Other CAD (coronary artery disease) Diabetes Denies family history of Clotting disorder Dementia Chronic kidney disease (CKD) Suicide Anesthesia complication Bleeding disorder Lung disease Stroke Social History Smoking and tobacco status: never smoked Second hand smoke exposure: No Alcohol intake: never Substance/Drug Use: never Lives independently: Yes Household members: spouse Housing: House Marital status: Current occupational status: employed Vitals/I&O/Wt Last Vital Signs Temp 98.0 F 10/01/22 11:59 Pulse 60 10/01/22 11:59 Resp 19 H 10/01/22 11:59 BP 115/82 10/01/22 11:59 Pulse Ox 99 10/01/22 11:59 O2 Del Method Nasal Cannula 10/01/22 08:03 O2 Flow Rate 1.5 10/01/22 08:03 FiO2 28 09/30/22 20:00 09/30/22 10/01/22 10/01/22 22:59 06:59 14:59 Intake Total 920 / 1625 620 / 2245 600 / 600 Output Total 600 / 610 150 / 760 Balance 320 / 1015 470 / 1485 600 / 600 Physical Exam Const: GENERAL APPEARANCE: cooperative, lethargic and ill appearing ORIENTATION/CONSCIOUSNESS: Yes lethargic GI: OTHER: distended Extremity: GENERAL: Yes edema and Yes other findings (venous stasis changes) Neuro: SENSORIUM/ORIENTATION: Yes lethargic Urinary Catheter Management: Douglas: Cath Placed During This Visit: yes Reason for Continuing Indwelling Catheter: Acute Urinary Retention or Obstruction Urinary Catheter Date of Insertion: 09/29/22 Urinary Catheter Time of Insertion: 15:00 Data 10/01/22 01:36 10/01/22 01:36 Other Labs: urinalysis no protein serum albumin 3.1 - 3.6 Ca 8.7, Mg 2.2 US: Radiologist's impression: 09/16/2022 1.? Coarse cirrhotic configuration to the liver. 2.? Cholelithiasis and sludge. No evidence of acute cholecystitis. 3.? No hydronephrosis in RIGHT kidney where visualized. 4.? LEFT kidney not visualized due to bowel gas. 5.? Pancreas not visualized. 6.? Prominent common bile duct measuring 6.6 mm 7.? Spleen is not well visualized but appears coarse heterogeneous. Perisplenic ascites. Echo: Radiologist's impression: 09/15/2022 Left ventricle is dilated.? LV systolic function is severely?reduced with EF of 20 to 25%.? ?RV is dilated and moderately hypokinetic. ?Biatrial enlargement ?Moderate to severe eccenteric mitral regurgitation ?Mild aortic regurgitation ?Moderate tricuspid regurgitation. Moderate pulmonary?hypertension ?Mild pulmonic regurgitation ?Pleural effusion is noted ?IVC is dilated Other data: seen via telemedicine with assitance of RN at bedside A&P Assessment and plan (1) Fluid overload: (2) BRAIN (acute kidney injury): Plan 1. Acute kidney injury, cardiorenal due to low cardiac output, biventricular heart failure, severe MR, possible underlying cirrhosis, oliguric 2. Volume overload 3. Hypokalemia, metabolic alkalosis 4. Mild hypervolemic hyponatremia Rec: Change diuretics to lasix gtt, starting at 20 mg/hr.Check ABG, if alkalemic, will try one dose diamox. Replace KCL. Check TSH. Reduce gabapentin. stop acarabose. Hold eliquis for possible dialysis catheter placement. I explained to Refugio concern that he is not responding to diuretics at this time and may need dialysis. Abdominal ultrasound for ascites, low threshold to move to ICU. Discussed with Dr Cross Consult Attestations Medical Necessity Statement: see above Time Spent in Patient Care: Greater than 35 minutes Coding Level of Care Code Acute Code for Chg Fwd Diagnoses Fluid overload E87.70 BRAIN (acute kidney injury) N17.9
[2022-10-01] MEDS: ACARBOSE 100 MG 100 EACH PO (14:42)
[2022-10-01] MEDS: GUAIFENESIN 400 MG 400 EACH PO ×2 (14:42→20:06)
[2022-10-01] MEDS: NON-FORMULARY MEDICATION (Pentoxifylline 400 mg tablet extended release) 400 EACH PO ×2 (14:42→20:06)
[2022-10-01 15:55] LABS: Anion Gap 18.7 (5-19); Calcium 8.8 mg/dL (8.5-10.5); Carbon Dioxide 28 mmol/L (22-29); Chloride 86 mmol/L (98-107); Glucose 179 mg/dL (65-115); Osmolality Calculated 302 mOsm/kg (285-295); Potassium 3.7 mmol/L (3.5-5.1); Sodium 129 mmol/L (136-145); Thyroid Stimulating Hormone 3.89 uIU/mL (0.27-4.20)
[2022-10-01 15:58] LABS: Creatinine Urine, Random 97 mg/dL (39-259)
[2022-10-01 15:59] LABS: Blood Urea Nitrogen 96 mg/dL (8-23)
[2022-10-01] MEDS: FUROsemide 100 MG in sodium chloride 0.9% 40 ML 10 MG IV ×2 (16:12→20:06)
[2022-10-01 16:19] LABS: Urine Random Sodium < 10 mmol/L
[2022-10-01 17:28] LABS: ABG PCO2 42.8 mmHg (35-45); ABG PH Result 7.46 (7.35-7.45); Alveolar-Arterial Oxygen Gradi 0.9 mmHg (5-10); Arterial Blood Gas Hematocrit 37.3 % (42-52); Base Excess ABG 5.7 mmol/L (-2.0-2.0); Blood Gas Allen Test Pos; Blood Gas Sample Site Radial, left; Blood Gas Sample Type Arterial; Carboxyhemoglobin 3.2 %THgb (0.4-20.1); HCO3 ABG 30.3 mmol/L (22-26); HGB O2 Sat 92.5 % (95-100); Ionized Calcium Level - ABG 1.1 mmol/L (1.1-1.4); Methemoglobin 1.1 % (0.4-1.5); Oxygen Device NC; Oxygen Saturation ABG 96.6; PO2 ABG 89.5 mmHg (80.0-100.0); Potassium Level - ABG 3.9 mmol/L (3.5-5.0); Total Hemoglobin 12.2 g/dL (14-18)
[2022-10-01] MEDS: tamsulosin 0.4 mg Capsule PO (18:02)
[2022-10-01] MEDS: gabapentin 300 mg Capsule PO (18:02)
--- NOTE | 2022-10-01 18:08 | PC.NURSE ---
Patient's dexacom read 142 at 1730.
--- NOTE | 2022-10-01 20:14 | PC.NURSE ---
Dr.Beckie Meng Nephrology called and spoke with Nurse. Nurse gave update on patients urine output and ABG results, no new orders at this time.
--- NOTE | 2022-10-01 21:20 | PC.NURSE ---
Patient refused accucheck, blood glucose on dexcom was 180
[2022-10-02] VITALS (24 sets, daily range): BP systolic 72–135; BP diastolic 43–82; PULSE 58–83; RESP 12–33; TEMP 36.2–36.8; O2SAT 87–96
[2022-10-02] MEDS: FUROsemide 100 MG in sodium chloride 0.9% 40 ML 10 MG IV ×5 (01:12→22:07)
[2022-10-02 03:16] LABS: Basophils # 0.1 10^3/uL (0.0-0.1); Basophils % 0.5 %; Eosinophils # 0.2 10^3/uL (0.0-0.8); Eosinophils % 1.5 %; Hematocrit 35.8 % (42.0-52.0); Hemoglobin 11.5 g/dL (11.7-16.6); Lymphocytes # 0.9 10^3/uL (0.8-4.8); Lymphocytes % 8.1 %; Mean Corpuscular HGB Conc 32.1 g/dL (30.0-36.0); Mean Corpuscular Hemoglobin 27.4 pg (28.0-34.0); Mean Corpuscular Volume 85.2 fl (80-94); Mean Platelet Volume 11.5 fL (7.4-10.4); Monocytes # 0.7 10^3/uL (0.2-0.9); Monocytes % 6.8 %; Neutrophils # 8.76 10^3/uL (1.8-7.7); Neutrophils % 82.7 %; Nucleated Red Blood Cells % 0 %; Platelet Count 216 10^3/cmm (130-400); Red Cell Distribution Width 16.2 % (12.1-15.1); White Blood Count 10.6 10^3/uL (4.0-10.0)
[2022-10-02 03:31] LABS: INR 2.44 (0.8-1.2)
[2022-10-02 03:39] LABS: Alanine Aminotransferase 10 U/L (0-41); Albumin Level 3.4 g/dL (3.5-5.2); Alkaline Phosphatase 201 U/L (40-130); Anion Gap 16.3 (5-19); Aspartate Amino Transferase 27 U/L (0-40); Calcium 8.8 mg/dL (8.5-10.5); Carbon Dioxide 30 mmol/L (22-29); Chloride 84 mmol/L (98-107); Globulin 3.3 g/dL (1.3-4.6); Glucose 206 mg/dL (65-115); Osmolality Calculated 301 mOsm/kg (285-295); Potassium 3.3 mmol/L (3.5-5.1); Sodium 127 mmol/L (136-145); Total Bilirubin 2.2 mg/dL (0.15-1.2); Total Protein 6.7 g/dL (6.6-8.7)
[2022-10-02 03:44] LABS: Blood Urea Nitrogen 99 mg/dL (8-23)
[2022-10-02] MEDS: levothyroxine 100 mcg Tablet PO (05:19)
--- NOTE | 2022-10-02 06:39 | P.PN_ITS ---
Subjective Subjective: slept well on BiPAP (chronic) last night more alert this AM Vitals/I&O/Wt Last Vital Signs Temp 97.2 F L 10/02/22 04:00 Pulse 60 10/02/22 05:29 Resp 29 H 10/02/22 05:00 BP 105/43 10/02/22 05:00 Pulse Ox 89 L 10/02/22 05:00 O2 Del Method Nasal Cannula 10/01/22 20:13 O2 Flow Rate 2 10/01/22 20:13 FiO2 28 09/30/22 20:00 10/01/22 10/01/22 10/02/22 14:59 22:59 06:59 Intake Total 600 / 600 99 / 699 100 / 799 Output Total 725 / 725 925 / 1650 Balance 600 / 600 -626 / -26 -825 / -851 Weight last 48 hrs Weight 134.717 kg Weight 136.032 kg Physical Exam Const: COMMON NORMALS: no acute distress and alert Neuro: SENSORIUM/ORIENTATION: Yes alert Urinary Catheter Management: Douglas: Cath Placed During This Visit: yes Reason for Continuing Indwelling Catheter: Acute Urinary Retention or Obst ruction Urinary Catheter Date of Insertion: 09/29/22 Urinary Catheter Time of Insertion: 15:00 Data 10/02/22 02:50 10/02/22 02:50 Other Labs: urine Na < 10, INR 2.4 ABG Interpretation 1: 10/01/22 17:16 ABG pH 7.46 H ABG pCO2 42.8 ABG pO2 89.5 ABG HCO3 30.3 H ABG O2 Saturation 96.6 ABG Base Excess 5.7 H Other data: seen via telemedicine with assistance of RN at bedside A&P Assessment and plan (1) Fluid overload: (2) BRAIN (acute kidney injury): Plan 1. Acute kidney injury, cardiorenal due to low cardiac output, biventricular heart failure, severe MR, possible underlying cirrhosis, possible hepatorenal as well. Urine output improved on lasix infusion. Renal function worse. 2. Volume overload 3. Hypokalemia, metabolic alkalosis 4. Hypervolemic hyponatremia 5. Coagulopathy. Should he continue pentoxifylline? Rec: Continue lasix gtt. Replace KCL. Consult cardiology. Attestations Medical Necessity Statement*: critically ill Time Spent in Patient Care: 16 - 35 minutes Coding Level of Care Code Acute Code for Chg Fwd Diagnoses Fluid overload E87.70 BRAIN (acute kidney injury) N17.9
--- NOTE | 2022-10-02 08:44 | PC.NURSE ---
Pt checked his own blood glucose this AM-204. pt is agreeabe to take 4 units per protocol s/scale
[2022-10-02] MEDS: insulin lispro 100 unit/1 mL SUBCUT ×3 (08:45→18:39)
[2022-10-02] MEDS: atorvastatin 40 mg Tablet 20 MG PO (08:45)
[2022-10-02] MEDS: pantoprazole DR 40 mg Tablet PO ×2 (08:45→18:39)
[2022-10-02] MEDS: carvedilol 3.125 mg Tablet PO ×2 (08:45→20:52)
[2022-10-02] MEDS: potassium chloride ER 20 mEq Tablet PO (08:45)
[2022-10-02] MEDS: gabapentin 300 mg Capsule PO ×2 (08:45→18:39)
[2022-10-02] MEDS: GUAIFENESIN 400 MG 400 EACH PO ×3 (08:54→20:52)
[2022-10-02] MEDS: NON-FORMULARY MEDICATION (Pentoxifylline 400 mg tablet extended release) 400 EACH PO (08:54)
[2022-10-02] MEDS: oxyCODONE-APAP 10-325 mg Tablet 1 TAB PO ×2 (09:05→15:22)
--- NOTE | 2022-10-02 09:43 | PC.SOCIAL ---
IMM update IMM updated with patient. Verbalized an understanding. Copy PG 2 provided. Initialled, dated, timed, and placed in chart.
[2022-10-02] MEDS: nystatin powder 15 gm Btl 1 APPLIC TOPICAL ×2 (11:17→18:41)
--- NOTE | 2022-10-02 11:19 | PC.NURSE ---
Pt dexcom blood sugar result is 239 pt has been refusing to let us use our own accucjecks.
--- NOTE | 2022-10-02 13:15 | PC.NURSE ---
pt refused to put his cpap for now due to visitors. informed pt to let nurse know if he needs assistance if putting his cpap back on. pt verbalizes understanding.
--- NOTE | 2022-10-02 13:16 | PC.NURSE ---
at bedside Informed regarding plans of care for pt. Educated regarding chf, chuck and possible HD per lump roller. Awaiting for [employer] d[employer] input for his plan of care. Per level of knowledge, pt wants to live but he was telling me i am not going out in the hospital alive . Education provided to in regards to his Heartfailure and acute renal failure and how we balance his volume and perfusion. step dgtr Kelli called via phone to get more information and the same information relayed to her. Dgtr seemed to understand pt's condition.
--- NOTE | 2022-10-02 14:42 | P.PN_ITS ---
Subjective Subjective: Patient was seen and examined this morning, had around 1400 cc urine output on Lasix drip, BUN has continued to creep up,scr is also slowly trending up, has hyponatremia, hypokalemia, appeared lethargic this morning, given the overall situation with regards to his kidney function, it is possible that he may end up on dialysis soon, cardiology has also been consulted today, in view of, his biventricular failure, and, severe MR. Medications: Medication Review Details: Generic Name Dose Route Start Last Admin Trade Name Freq PRN Reason Stop Dose Admin Apixaban 5 mg 09/29/22 18:00 10/01/22 08:17 Apixaban 5 Mg Ta blet PO 5 mg BID JAIR Administration Atorvastatin Calci um 20 mg 09/30/22 09:00 10/02/22 08:45 Atorvastatin 40 Mg Tablet PO 20 mg DAILY JAIR Administration Bisacodyl 10 mg 09/29/22 13:26 09/30/22 20:10 Bisacodyl 5 Mg T ablet PO 10 mg DAILY PRN Administration Constipation (see protocol) Protocol Bumetanide 2 mg 09/29/22 14:00 10/01/22 05:35 Bumetanide 0.25 Mg/Ml Sdv 10 Ml IVP 2 mg Q8H JAIR Administration Carvedilol 3.125 mg 09/29/22 21:00 10/02/22 08:45 Carvedilol 3.125 Mg Tablet PO 3.125 mg BID@0900,2100 JAIR Administration Gabapentin 300 mg 10/01/22 18:00 10/02/22 08:45 Gabapentin 300 M g Capsule PO 300 mg BID JAIR Administration Furosemide 100 mg/ Sodium 50 mls @ 10 mls/h r 10/01/22 15:15 10/02/22 11:16 Chloride IV 10 mls/hr .Q5H JAIR Administration Insulin Human Lisp ro 0 unit 09/30/22 08:00 10/02/22 12:48 Insulin Lispro 1 00 Unit/1 Ml SUBCUT 6 unit TIDWM JAIR Administration Protocol Levothyroxine Sodi um 100 mcg 09/30/22 06:00 10/02/22 05:19 Levothyroxine 10 0 Mcg Tablet PO 100 mcg QAM JAIR Administration Metolazone 5 mg 09/30/22 09:00 10/01/22 08:16 Metolazone 5 Mg Tablet PO 5 mg DAILY JAIR Administration Non-Formulary Medi cation 400 mg 09/29/22 15:00 10/02/22 08:54 Guaifenesin PO 400 mg TID JAIR Administration Non-Formulary Medi cation 400 mg 09/29/22 21:00 10/02/22 08:54 Pentoxifylline PO 400 mg TID JAIR Administration Nystatin 1 applic 10/02/22 09:30 10/02/22 11:17 Nystatin Powder 15 Gm Btl TOPICAL 1 applic BID JAIR Administration Oxycodone/Acetamin ophen 1 tab 09/29/22 13:31 10/02/22 09:05 Oxycodone-Apap 1 0-325 Mg Tablet PO 1 tab TID PRN Administration MODERATE TO SEVER E pain Pantoprazole Sodiu m 40 mg 09/29/22 18:00 10/02/22 08:[address] 40 Mg Tablet PO 40 mg BID JAIR Administration Tamsulosin HCl 0.4 mg 09/29/22 18:00 10/01/22 18:02 Tamsulosin 0.4 M g Capsule PO 0.4 mg QPM JAIR Administration Vitals/I&O/Wt Last Vital Signs Temp 97.6 F 10/02/22 11:22 Pulse 60 10/02/22 12:00 Resp 20 H 10/02/22 11:22 BP 111/57 10/02/22 11:22 Pulse Ox 93 10/02/22 11:22 O2 Del Method Nasal Cannula 10/02/22 11:22 O2 Flow Rate 2 10/02/22 11:22 FiO2 28 09/30/22 20:00 10/01/22 10/02/22 10/02/22 22:59 06:59 14:59 Intake Total 99 / 699 100 / 799 642.5 / 642.5 Output Total 725 / 725 925 / 1650 800 / 800 Balance -626 / -26 -825 / -851 -157.5 / -157.5 Weight last 48 hrs Weight 134.717 kg Weight 136.032 kg Physical Exam HENMT: COMMON NORMALS: normocephalic and atraumatic HEAD & SCALP: normocephalic and atraumatic Resp: COMMON NORMALS: clear to auscultation bilaterally AUSCULTATION: clear to auscultation bilaterally Cardio: OTHER: Irregularly irregular rhythm, S1-S2 variable intensity GI: COMMON NORMALS: Normal to inspection, nondistended, normoactive bowel sounds present, Soft to palpation, non-tender, No hepatosplenomegaly present and no masses AUSCULTATION: Yes normoactive bowel sounds PALPATION: Yes Soft to palpation and Yes No hepatosplenomegaly present RECTAL EXAM: Yes deferred Extremity: NARRATIVE EXTREMITY EXAM: 3+ bilateral lower extremity pitting edema up to knee Urinary Catheter Management: Douglas: Cath Placed During This Visit: yes Reason for Continuing Indwelling Catheter: Acute Urinary Retention or Obstruction Urinary Catheter Date of Insertion: 09/29/22 Urinary Catheter Time of Insertion: 15:00 Data 10/02/22 02:50 10/02/22 02:50 A&P Assessment and plan (1) CKD (chronic kidney disease): (2) Hypokalemia: (3) CHF (congestive heart failure): (4) COPD (chronic obstructive pulmonary disease): (5) NSTEMI (non-ST elevated myocardial infarction): (6) Abnormal nuclear stress test: Plan 76 year old male?with PMHx of NICM, HFrEF (LVEF=20-25% on last echo in 09/2022), IDDM-2,? diabetic peripheral neuropathy,chronicl atrial fibrillation, PAD, CKD and status post cardiac pacemaker procedure..Prior C after a abnormal myocardial perfusion imaging that showed 50% eccentric LCx lesion. Recent n uclear stress test done in September this year showed: Results appreciated. Came in today with chief complaint of worsening bilateral lower extremity swelling, worsening shortness of breath ,orthopnea, weight gain, increasing abdominal swelling. Currently he is being managed for Assessment: Decompensated HFrEF (LVEF=20-25% on last echo in 09/2022). Patient was worsening bilateral lower extremity swelling, orthopnea, weight gain, abdominal swelling Last 2D echo results appreciated: Suggestive of BiV failure Was on Bumex 2 mg IV 3 times daily, metolazone 5 mg p.o. daily currently on hold. Currently on Lasix drip Monitor intake output charting Daily weight Monitor electrolytes : K>4, MG>2 Telemetry monitoring NSTEMI: Troponin trend:128-120 EKG has shown: Paced rhythm Most recent nuclear stress test done in September 2022: Results appreciated 2D echo: october 01: Left ventricle is dilated.? LV systolic function is severely ?reduced with EF of 20 to 25%.? RV is dilated and moderately hypokinetic. ?Biatrial enlargement ?Moderate to severe eccenteric mitral regurgitation,?Mild aortic regurgitation,?Moderate tricuspid regurgitation. Moderate pulmonary ?hypertension,?Mild pulmonic regurgitation. Cardiology on board. Severe hypokalemia: Monitor and replace serum potassium History of atrial fibrillation: Continue carvedilol Was on Eliquis currently on hold Coagulopathy: Likely secondary to possibly underlying liver cirrhosis Currently INR is 2.4. Continue to monitor INR No active bleeding noted at this BRAIN ON CKD: Likely multifactorial secondary to CRS/ HRS/MR/ Admission serum creatinine is 2.1, more or less appears to be his baseline serum creatinine Follow abdominal ultrasound: Monitor BMP for now Monitor intake output charting Monitor electrolytes Avoid nephrotoxic's Possible nephrology consult Metabolic alkalosis: ABG results appreciated Hypervolemic hyponatremia with relative SIADH: Secondary to volume overload secondary decompensated heart failure Continue IV diuresis Monitor serum sodium History of Diabetes: LDSSI, monitor fingerstick glucose Elevated total bilirubin: Possible congestive hepatopathy, Liver cirrhosis: Possibly cardiac cirrhosis, secondary to longstanding wilbert estive hepatopathy CODE STATUS: Full code DVT prophylaxis not needed Eliquis will be sufficient Attestations Medical Necessity Statement*: Needs to be in hospital for IV diuresis. Coding Level of Care Code Acute Code for Chg Fwd Diagnoses CKD (chronic kidney disease) N18.9 Hypokalemia E87.6 CHF (congestive heart failure) I50.9 COPD (chronic obstructive pulmonary disease) J44.9 NSTEMI (non-ST elevated myocardial infarction) I21.4 Abnormal nuclear stress test R94.39
--- NOTE | 2022-10-02 15:56 | PC.NURSE ---
Interdry applied to redness around abdominal folds.
[2022-10-02] MEDS: bisacodyl 5 mg Tablet 10 MG PO (18:39)
[2022-10-02] MEDS: tamsulosin 0.4 mg Capsule PO (18:39)
--- NOTE | 2022-10-02 19:05 | PM.CONSULT ---
Providers/Reason For Consult Consulting Physician/Specialty*: Danny Blas MD/ Cardiology Reason for Consult*: Congestive heart failure/ LV dysfunction Requesting Physician: Dr Cross Attending Physician: Steven Cross MD Primary Care Provider: Mary Lou Anaya MD History of Present Illness History of Present Illness Refugio Amanda is a 76 year old male with past medical history of nonischemic cardiomyopathy with prior EF of 39% but recently dropped to 25 to 30% diabetes, A-fib, PAD, pacemaker in place who was recently discharged from the hospital after CHF exacerbation presented to hospital with worsening shortness of breath, weight gain and lower extremity edema. Troponins did not trend up significantly. He has CKD. On last admission coronary angiogram was discussed however patient did not want to go on dialysis as the risk of ERIC is very high. He denies any chest pain. He was discharged home last time on [facility] with possible consideration for SEAFOOD TECHNOLOGY SPECIALIST-D. EKG shows paced rhythm. On last admission and stress test which prior infarcts with some darron-infarct ischemia in left circumflex artery territory. Review of Systems General: Reports: 10 or more systems reviewed and unremarkable except in HPI and below Const: Denies: fever(s), chills, body aches, change in appetite or diaphoresis Card: Reports: edema, swelling of feet/ankles, dyspnea on exertion and orthopnea; Denies: palpitations or leg pain with exertion Resp: Denies: dyspnea, productive cough, wheezing or pain on inspiration GI: Denies: abdominal pain, nausea, vomiting, diarrhea or constipation : Denies: flank pain or difficulty urinating Musc: Denies: back pain, extremity pain or extremity swelling Neuro: Denies: headache(s), difficulty walking or confusion Medications/Allergies Home Medications Medication Instructions Recorded Confirmed Last Taken Type apixaban 5 mg tablet (Eliquis) 5 mg PO BID 04/09/19 09/29/22 09/29/22 History omeprazole 20 mg capsule,delayed 20 mg PO BID 04/09/19 09/29/22 09/29/22 History release vitamin E (dl, acetate) 450 mg 1,000 unit PO DAILY 04/09/19 09/29/22 11/20/20 History (1,000 unit) capsule pentoxifylline 400 mg 400 mg PO TID 04/12/19 09/29/22 09/29/22 08:30 History tablet,extended release atorvastatin 20 mg tablet 20 mg PO DAILY 04/02/21 09/29/22 Unknown History metolazone 5 mg tablet 5 mg PO EVERY OTHER DAY 06/02/21 09/29/22 09/28/22 History blood-glucose meter,continuous #1 ea 09/09/21 09/29/22 Unknown Rx ([employer]excom G6 Bootmaker) diabetic shoes with 3 custom #1 ea 05/20/22 09/29/22 Unknown Rx inserts bumetanide 2 mg tablet 2 mg PO TID 06/07/22 09/29/22 09/29/22 History blood-glucose sensor (Dexcom G6 #9 ea 07/28/22 09/29/22 Unknown Rx Sensor device) blood-glucose transmitter (Dexcom #1 ea 07/28/22 09/29/22 Unknown Rx G6 Transmitter device) Juzo Lymphedema Wraps Bilaterally #1 ea 08/12/22 09/29/22 Unknown Rx 2 pairs Juzo compression wraps to right #1 ea 08/16/22 09/29/22 Unknown Rx and left oxycodone-acetaminophen 10 mg-325 1 tab PO TID PRN pain 30 days #90 09/13/22 09/29/22 09/29/22 Rx mg tablet tabs acarbose 100 mg tablet 100 mg PO TID 09/15/22 09/29/22 09/29/22 History cinnamon bark 500 mg capsule 500 mg PO BID PRN unknown 09/15/22 09/29/22 Unknown History (Cinnamon) gabapentin 800 mg tablet 800 mg PO TID 09/15/22 09/29/22 09/29/22 History insulin aspart U-100 100 unit/mL See Rx Instructions .Route .COMPLEX 09/15/22 09/29/22 Unknown History (3 mL) subcutaneous pen (Novolog FlexPen U-100 Insulin aspart) insulin detemir U-100 100 unit/mL 25 - 30 unit SUBCUT QA 09/15/22 09/29/22 09/29/22 History (3 mL) subcutaneous pen (Levemir 30 units FlexTouch U-100 Insulin) levothyroxine 100 mcg tablet 100 mcg PO QAM 09/15/22 09/29/22 09/29/22 History omega-3 fatty acids 1,000 mg 1,000 mg PO BID 09/15/22 09/29/22 09/29/22 History capsule zinc acetate 50 mg (zinc) capsule 50 mg PO DAILY 09/15/22 09/29/22 Unknown History carvedilol 3.125 mg tablet 3.125 mg PO BID 30 days #60 tabs 09/25/22 09/29/22 Unknown Rx capsaicin 0.075 % topical cream 1 applic topical TID PRN Pain 09/29/22 09/29/22 Unknown History carbamide peroxide 6.5 % ear drops See Rx Instructions .Route .COMPLEX 09/29/22 09/29/22 Unknown History clotrimazole 1 % topical cream 1 applic topical DAILY PRN SCALES 09/29/22 09/29/22 Unknown History ON FEET guaifenesin 400 mg tablet 400 mg PO TID 09/29/22 09/29/22 09/29/22 History lactulose 10 gram/15 mL oral 15 ml PO DAILY PRN Constipation 09/29/22 09/29/22 09/28/22 History solution lidocaine 5 % topical patch 1 patch topical DAILY PRN Pain 09/29/22 09/29/22 Unknown History tamsulosin 0.4 mg capsule (Flomax) 0.4 mg PO QPM 09/29/22 09/29/22 09/28/22 History testosterone 2 pump topical DAILY 09/29/22 09/29/22 12 Days Ago History ~09/17/22 Allergies Allergy/AdvReac Type Severity Reaction Status Date / Time lisinopril Allergy Unknown Verified 09/29/22 11:48 Current Medications Generic Name Dose Route Start Last Admin Trade Name Freq PRN Reason Stop Dose Admin Apixaban 5 mg 09/29/22 18:00 10/01/22 08:17 Apixaban 5 Mg Tablet PO 5 mg BID JAIR Administration Atorvastatin Calcium 20 mg 09/30/22 09:00 10/02/22 08:45 Atorvastatin 40 Mg Tablet PO 20 mg DAILY JAIR Administration Bisacodyl 10 mg 09/29/22 13:26 10/02/22 18:39 Bisacodyl 5 Mg Tablet PO 10 mg DAILY PRN Administration Constipation (see protocol) Protocol Bumetanide 2 mg 09/29/22 14:00 10/01/22 05:35 Bumetanide 0.25 Mg/Ml Sdv 10 Ml IVP 2 mg Q8H JAIR Administration Carvedilol 3.125 mg 09/29/22 21:00 10/02/22 08:45 Carvedilol 3.125 Mg Tablet PO 3.125 mg BID@0900,2100 JAIR Administration Gabapentin 300 mg 10/01/22 18:00 10/02/22 18:39 Gabapentin 300 Mg Capsule PO 300 mg BID JAIR Administration Furosemide 100 mg/ Sodium 50 mls @ 10 mls/hr 10/01/22 15:15 10/02/22 15:30 Chloride IV 10 mls/hr .Q5H JAIR Administration Insulin Human Lispro 0 unit 09/30/22 08:00 10/02/22 18:39 Insulin Lispro 100 Unit/1 Ml SUBCUT 2 unit TIDWM JAIR Administration Protocol Levothyroxine Sodium 100 mcg 09/30/22 06:00 10/02/22 05:19 Levothyroxine 100 Mcg Tablet PO 100 mcg QAM JAIR Administration Metolazone 5 mg 09/30/22 09:00 10/01/22 08:16 Metolazone 5 Mg Tablet PO 5 mg DAILY JAIR Administration Non-Formulary Medication 400 mg 09/29/22 15:00 10/02/22 15:22 Guaifenesin PO 400 mg TID JAIR Administration Non-Formulary Medication 400 mg 09/29/22 21:00 10/02/22 08:54 Pentoxifylline PO 400 mg TID JAIR Administration Nystatin 1 applic 10/02/22 09:30 10/02/22 18:41 Nystatin Powder 15 Gm Btl TOPICAL 1 applic BID JAIR Administration Oxycodone/Acetaminophen 1 tab 09/29/22 13:31 10/02/22 15:22 Oxycodone-Apap 10-325 Mg Tablet PO 1 tab TID PRN Administration MODERATE TO SEVERE pain Pantoprazole Sodium 40 mg 09/29/22 18:00 10/02/22 18:[address] 40 Mg Tablet PO 40 mg BID JAIR Administration Tamsulosin HCl 0.4 mg 09/29/22 18:00 10/02/22 18:39 Tamsulosin 0.4 Mg Capsule PO 0.4 mg QPM JAIR Administration PFSH Acute PFSH: Medical History Abdominal pain Abnormal nuclear stress test Acute exacerbation of CHF (congestive heart failure) Acute on chronic diastolic (congestive) heart failure Acute on chronic systolic heart failure BRAIN (acute kidney injury) Anasarca Asymptomatic microscopic hematuria Atherosclerotic heart disease Bradycardia Patient has a longstanding history of atrial fibrillation and bradycardia. Chest pain CHF (congestive heart failure) Chronic atrial fibrillation Patient is on long-term oral anticoagulation. Chronic venous insufficiency Cirrhosis COPD (chronic obstructive pulmonary disease) Diabetes Diverticulosis History of nonmelanoma skin cancer Hx of cardiac pacemaker Hyperlipidemia Hypertension Left upper quadrant pain alf (current) use of opiate analgesic Non-healing ulcer Onychodystrophy Osteomyelitis Right toe status post debridement and bone biopsy, [facility] 2018 PAD (peripheral artery disease) Patient has two-vessel runoff on the left side and three-vessel runoff on the right side. He has mild to moderate diffuse peripheral arterial disease. Pain management contract signed Sleep apnea SOB (shortness of breath) Patient is known to have COPD Varicose veins of bilateral lower extremities with other complications Surgical History History of hip surgery Hx of artificial lens replacement Hx of cataract extraction Hx of toe surgery Hx of tonsillectomy Family History Father , at age 57 Cancer Mother , at age 91 Cancer breast Other CAD (coronary artery disease) Diabetes Denies family history of Clotting disorder Dementia Chronic kidney disease (CKD) Suicide Anesthesia complication Bleeding disorder Lung disease Stroke Social History Smoking and tobacco status: never smoked Second hand smoke exposure: No Alcohol intake: never Substance/Drug Use: never Lives independently: Yes Household members: spouse Housing: House Marital status: Current occupational status: employed Vitals/I&O/Wt Last Vital Signs Temp 97.6 F 10/02/22 11:22 Pulse 65 10/02/22 15:21 Resp 19 H 10/02/22 15:22 BP 106/58 10/02/22 15:21 Pulse Ox 96 10/02/22 15:22 O2 Del Method Nasal Cannula 10/02/22 11:22 O2 Flow Rate 2 10/02/22 11:22 FiO2 28 09/30/22 20:00 10/02/22 10/02/22 10/02/22 06:59 14:59 22:59 Intake Total 100 / 799 642.5 / 642.5 42.333 / 684.833 Output Total 925 / 1650 800 / 800 Balance -825 / -851 -157.5 / -157.5 42.333 / -115.167 Weight last 48 hrs Weight 297 lb Weight 299 lb 14.4 oz Physical Exam Urinary Catheter Management: Douglas: Cath Placed During This Visit: yes Reason for Continuing Indwelling Catheter: Acute Urinary Retention or Obstruction Urinary Catheter Date of Insertion: 09/29/22 Urinary Catheter Time of Insertion: 15:00 Data 10/03/22 02:19 10/03/22 02:19 A&P Assessment and plan (1) CHF (congestive heart failure): (2) Acute on chronic diastolic (congestive) heart failure: (3) BRAIN (acute kidney injury): (4) CKD (chronic kidney disease): (5) COPD (chronic obstructive pulmonary disease): (6) OSITO (obstructive sleep apnea): Plan Patient has presented with volume overload in setting of HFrEF and renal dysfunction. He has significant uremia. On Lasix drip. Stress test showed prior infarct with darron-infarct ischemia. He has history of nonischemic cardiomyopathy. We can consider proceeding with coronary angiogram only if he agrees to be on dialysis as risk of ERIC is very high. He is not having chest pain. No urgency for coronary angiogram. Troponin has not trended up and no chest pain. Nephrology on board. Appreciate recommendations. Continue Lasix drip. Long-term use of SEAFOOD TECHNOLOGY SPECIALIST-D placement. INR is elevated. Hold anticoagulation at this time. Thank you for involving us with care of this patient. We will continue to follow. Please call with questions. Consult Attestations Medical Necessity Statement: Care expected to cross 2 midnights. Coding Level of Care Code Acute Code for [facility] Fwd Diagnoses CHF (congestive heart failure) I50.9 Acute on chronic diastolic (congestive) heart failure I50.33 BRAIN (acute kidney injury) N17.9 CKD (chronic kidney disease) N18.9 COPD (chronic obstructive pulmonary disease) J44.9 OSITO (obstructive sleep apnea) G47.33
[2022-10-03] VITALS (32 sets, daily range): BP systolic 96–145; BP diastolic 47–93; PULSE 56–154; RESP 9–32; TEMP 36.2–36.9; O2SAT 81–98
[2022-10-03] MEDS: oxyCODONE-APAP 10-325 mg Tablet 1 TAB PO ×3 (00:35→18:50)
[2022-10-03] MEDS: FUROsemide 100 MG in sodium chloride 0.9% 40 ML 10 MG IV (02:22)
[2022-10-03 02:46] LABS: Basophils % 0.5 %; Eosinophils # 0.3 10^3/uL (0.0-0.8); Hematocrit 37.8 % (42.0-52.0); Hemoglobin 12.2 g/dL (11.7-16.6); Lymphocytes # 0.9 10^3/uL (0.8-4.8); Lymphocytes % 9.7 %; Mean Corpuscular HGB Conc 32.3 g/dL (30.0-36.0); Mean Corpuscular Hemoglobin 27.5 pg (28.0-34.0); Mean Corpuscular Volume 85.1 fl (80-94); Mean Platelet Volume 11.2 fL (7.4-10.4); Monocytes # 0.8 10^3/uL (0.2-0.9); Neutrophils # 6.81 10^3/uL (1.8-7.7); Neutrophils % 77.2 %; Nucleated Red Blood Cells % 0 %; Platelet Count 224 10^3/cmm (130-400); Red Blood Count 4.44 10^6/uL (4.1-5.3); Red Cell Distribution Width 16.1 % (12.1-15.1); White Blood Count 8.8 10^3/uL (4.0-10.0)
[2022-10-03 02:58] LABS: INR 1.92 (0.8-1.2)
[2022-10-03 03:02] LABS: Alanine Aminotransferase 10 U/L (0-41); Albumin Level 3.5 g/dL (3.5-5.2); Alkaline Phosphatase 199 U/L (40-130); Anion Gap 17.2 (5-19); Aspartate Amino Transferase 33 U/L (0-40); Calcium 8.9 mg/dL (8.5-10.5); Carbon Dioxide 32 mmol/L (22-29); Chloride 82 mmol/L (98-107); Globulin 3.6 g/dL (1.3-4.6); Glucose 244 mg/dL (65-115); Osmolality Calculated 306 mOsm/kg (285-295); Potassium 3.2 mmol/L (3.5-5.1); Sodium 128 mmol/L (136-145); Total Protein 7.1 g/dL (6.6-8.7)
[2022-10-03 03:04] LABS: Blood Urea Nitrogen 103 mg/dL (8-23)
[2022-10-03] MEDS: levothyroxine 100 mcg Tablet PO (06:13)
--- NOTE | 2022-10-03 06:29 | PM.PN ---
Subjective Subjective: trouble sleeping, reports pain on bottom, BMs x 2 + dyspnea Vitals/I&O/Wt Last Vital Signs Temp 97.4 F L 10/03/22 03:52 Pulse 81 10/03/22 05:30 Resp 19 H 10/03/22 03:52 BP 120/58 10/03/22 03:52 Pulse Ox 98 10/03/22 03:52 O2 Del Method Nasal Cannula 10/03/22 03:52 O2 Flow Rate 2 10/02/22 20:56 FiO2 28 10/02/22 20:00 10/02/22 10/02/22 10/03/22 14:59 22:59 06:59 Intake Total 642.5 / 642.5 914.333 / 1556.833 242.5 / 1799.333 Output Total 800 / 800 350 / 1150 1050 / 2200 Balance -157.5 / -157.5 564.333 / 406.833 -807.5 / -400.667 Weight last 48 hrs Weight 133.47 kg Weight 134.717 kg Weight 136.032 kg Physical Exam Const: COMMON NORMALS: no acute distress and alert Extremity: NARRATIVE EXTREMITY EXAM: anasarca Neuro: SENSORIUM/ORIENTATION: Yes alert Urinary Catheter Management: Douglas: Cath Placed During This Visit: yes Reason for Continuing Indwelling Catheter: Accurate Measurement of Urinary Output in Critically Ill Patients Urinary Catheter Date of Insertion: 09/29/22 Urinary Catheter Time of Insertion: 15:00 Data 10/03/22 02:19 10/03/22 02:19 Other Labs: inr 1.92 Other data: seen via telemedicine with assistance of RN at bedside A&P Assessment and plan (1) Fluid overload: (2) BRAIN (acute kidney injury): Plan 1. Acute kidney injury, cardiorenal due to low cardiac output, biventricular heart failure, severe MR, possible underlying cirrhosis, possible hepatorenal as well. Urine output improved on lasix infusion, but is only 500 ml neg since admission. Renal function worse. 2. Volume overload 3. Hypokalemia, metabolic alkalosis 4. Hypervolemic hyponatremia, stable 5. Coagulopathy, improved Rec: I had a detailed discussion with Refugio. I am recommending initiation of HD. Discussed insertion of dialysis catheter, dialysis procedure, risks and benefits. He is agreeable. was not present for discussion. I will call later to follow-up with her. Recommend placement of tunneled HD catheter tomorrow. Increase lasix gtt to 30 mg/hr. Replace KCl 40 mEq po x 1 dose. Repeat BMP later today Attestations Medical Necessity Statement*: see above Time Spent in Patient Care: 16 - 35 minutes Coding Level of Care Code Acute Code for Chg Fwd Diagnoses Fluid overload E87.70 BRAIN (acute kidney injury) N17.9
--- NOTE | 2022-10-03 07:37 | PC.PHAR ---
Dr. Meng requested lasix drip increase to 30 mg/hr (15 ml/hr) via telephone 10/03 @ 3629
--- NOTE | 2022-10-03 07:58 | PC.NURSE ---
pt checked his blood sugar from his [address] [employer] [id number]
[2022-10-03] MEDS: FUROsemide 100 MG in sodium chloride 0.9% 40 ML 15 MG IV ×5 (07:59→21:35)
[2022-10-03] MEDS: gabapentin 300 mg Capsule PO ×2 (08:37→18:20)
[2022-10-03] MEDS: potassium chloride ER 20 mEq Tablet 40 MEQ PO (08:37)
[2022-10-03] MEDS: insulin lispro 100 unit/1 mL SUBCUT ×3 (08:38→18:20)
[2022-10-03] MEDS: carvedilol 3.125 mg Tablet PO ×2 (08:38→21:34)
[2022-10-03] MEDS: atorvastatin 40 mg Tablet 20 MG PO (08:38)
[2022-10-03] MEDS: pantoprazole DR 40 mg Tablet PO ×2 (08:38→18:20)
[2022-10-03] MEDS: nystatin powder 15 gm Btl 1 APPLIC TOPICAL ×2 (08:38→21:35)
--- NOTE | 2022-10-03 08:41 | P.PN_ITS ---
Subjective Subjective: Patient is drowsy. Denies chest pain. Vitals/I&O/Wt Last Vital Signs Temp 97.8 F 10/03/22 08:00 Pulse 62 10/03/22 08:00 Resp 16 10/03/22 08:00 BP 129/64 10/03/22 08:00 Pulse Ox 95 10/03/22 08:00 O2 Del Method Nasal Cannula 10/03/22 03:52 O2 Flow Rate 2 10/02/22 20:56 FiO2 28 10/02/22 20:00 10/02/22 10/03/22 10/03/22 22:59 06:59 14:59 Intake Total 914.333 / 1556.833 242.5 / 1799.333 50 / 50 Output Total 350 / 1150 1050 / 2200 Balance 564.333 / 406.833 -807.5 / -400.667 50 / 50 Weight last 48 hrs Weight 294 lb 4 oz Weight 297 lb Weight 299 lb 14.4 oz Physical Exam Narrative: GENERAL: Patient is drowsy NECK: No jugular vein distension. [] HEENT: No cyanosis. No icterus. No pallor. [] HEART: Regular S1 and S2. No murmur, rub or gallop. [] LUNGS: Clear to auscultate bilaterally. [] CENTRAL NERVOUS SYSTEM: Grossly nonfocal. [] EXTREMITIES: Lower extremities with 1+ edema bilaterally. Urinary Catheter Management: Douglas: Cath Placed During This Visit: yes Reason for Continuing Indwelling Catheter: Accurate Measurement of Urinary Output in Critically Ill Patients Urinary Catheter Date of Insertion: 09/29/22 Urinary Catheter Time of Insertion: 15:00 Data 10/04/22 02:38 10/04/22 02:38 A&P Assessment and plan (1) CHF (congestive heart failure): (2) Acute on chronic diastolic (congestive) heart failure: (3) BRAIN (acute kidney injury): (4) CKD (chronic kidney disease): (5) COPD (chronic obstructive pulmonary disease): (6) OSITO (obstructive sleep apnea): Plan Patient's BUN continues to go up. Decision was made to proceed with dialysis. Once patient stabilizes after heart cath, will need coronary angiogram. Long-term use of CUTTING AND CREASING PRESS OPERATOR-D placement. Thank you for involving us with care of this patient. We will continue to follow. Please call with questions. Attestations Medical Necessity Statement*: Care expected to cross 2 midnights. Coding Level of Care Code Acute Code for Chg Fwd Diagnoses CHF (congestive heart failure) I50.9 Acute on chronic diastolic (congestive) heart failure I50.33 BRAIN (acute kidney injury) N17.9 CKD (chronic kidney disease) N18.9 COPD (chronic obstructive pulmonary disease) J44.9 OSITO (obstructive sleep apnea) G47.33
[2022-10-03] MEDS: GUAIFENESIN 400 MG 400 EACH PO ×2 (08:42→21:34)
[2022-10-03] MEDS: cyclobenzaprine 10 mg Tablet 5 MG PO ×2 (11:15→18:47)
--- NOTE | 2022-10-03 11:29 | PC.NURSE ---
Patients glucose was 235 per the patients dexcom.
--- NOTE | 2022-10-03 11:47 | P.CONIM_ITS ---
Providers/Reason For Consult Consulting Physician/Specialty*: Dr. Ephraim Lopez, DO/General surgery Reason for Consult*: Permacath placement Attending Physician: Steven Cross MD Primary Care Provider: Mary Lou Anaya MD History of Present Illness History of Present Illness Refugio Amanda is a 76 year old male who originally presented to the hospital with increasing shortness of breath and swelling in his lower extremities. He was recently discharged from the hospital after having a drop and cardiac ejection fraction and he left with a LifeVest. He still reports difficulty breathing along with swelling of his abdomen and legs. Denies any pain. Denies any nausea or vomiting. Nephrology is requesting tunneled dialysis catheter for long-term hemodialysis. Review of Systems General: Reports: 10 or more systems reviewed and unremarkable except in HPI and below Medications/Allergies Home Medications Medication Instructions Recorded Confirmed Last Taken Type apixaban 5 mg tablet (Eliquis) 5 mg PO BID 04/09/19 09/29/22 09/29/22 History omeprazole 20 mg capsule,delayed 20 mg PO BID 04/09/19 09/29/22 09/29/22 History release vitamin E (dl, acetate) 450 mg 1,000 unit PO DAILY 04/09/19 09/29/22 11/20/20 Hi story (1,000 unit) capsule pentoxifylline 400 mg 400 mg PO TID 04/12/19 09/29/22 09/29/22 08:30 History tablet,extended release atorvastatin 20 mg tablet 20 mg PO DAILY 04/02/21 09/29/22 Unknown History metolazone 5 mg tablet 5 mg PO EVERY OTHER DAY 06/02/21 09/29/22 09/28/22 Histo ry blood-glucose meter,continuous #1 ea 09/09/21 09/29/22 Unknown Rx (Dexcom G6 Director Regulatory Agency) diabetic shoes with 3 custom #1 ea 05/20/22 09/29/22 Unknown Rx inserts bumetanide 2 mg tablet 2 mg PO TID 06/07/22 09/29/22 09/29/22 History blood-glucose sensor (Dexcom G6 #9 ea 07/28/22 09/29/22 Unknown Rx Sensor device) blood-glucose transmitter (Dexcom #1 ea 07/28/22 09/29/22 Unknown Rx G6 Transmitter device) Juzo Lymphedema Wraps Bilaterally #1 ea 08/12/22 09/29/22 Unknown Rx 2 pairs Juzo compression wraps to right #1 ea 08/16/22 09/29/22 Unknown Rx and left oxycodone-acetaminophen 10 mg-325 1 tab PO TID PRN pain 30 days #90 09/13/22 09/29/22 09/29/22 Rx mg tablet tabs acarbose 100 mg tablet 100 mg PO TID 09/15/22 09/29/22 09/29/22 History cinnamon bark 500 mg capsule 500 mg PO BID PRN unknown 09/15/22 09/29/22 Unknown History (Cinnamon) gabapentin 800 mg tablet 800 mg PO TID 09/15/22 09/29/22 09/29/22 History insulin aspart U-100 100 unit/mL See Rx Instructions .Route .COMPLEX 09/15/22 09/29/22 Unknown History (3 mL) subcutaneous pen (Novolog FlexPen U-100 Insulin aspart) insulin detemir U-100 100 unit/mL 25 - 30 unit SUBCUT QAM 09/15/22 09/29/22 09/29/22 History (3 mL) subcutaneous pen (Levemir 30 units FlexTouch U-100 Insulin) levothyroxine 100 mcg tablet 100 mcg PO QAM 09/15/22 09/29/22 09/29/22 History omega-3 fatty acids 1,000 mg 1,000 mg PO BID 09/15/22 09/29/22 09/29/22 History capsule zinc acetate 50 mg (zinc) capsule 50 mg PO DAILY 09/15/22 09/29/22 Unknown History carvedilol 3.125 mg tablet 3.125 mg PO BID 30 days #60 tabs 09/25/22 09/29/22 Unknown Rx capsaicin 0.075 % topical cream 1 applic topical TID PRN Pain 09/29/22 09/29/22 Unknown History carbamide peroxide 6.5 % ear drops See Rx Instructions .Route .COMPLEX 09/29/22 09/29/22 Unknown History clotrimazole 1 % topical cream 1 applic topical DAILY PRN SCALES 09/29/22 09/29/22 Unknown History ON FEET guaifenesin 400 mg tablet 400 mg PO TID 09/29/22 09/29/22 09/29/22 History lactulose 10 gram/15 mL oral 15 ml PO DAILY PRN Constipation 09/29/22 09/29/22 09/28/22 History solution lidocaine 5 % topical patch 1 patch topical DAILY PRN Pain 09/29/22 09/29/22 Unknown History tamsulosin 0.4 mg capsule (Flomax) 0.4 mg PO QPM 09/29/22 09/29/22 09/28/22 History testosterone 2 pump topical DAILY 09/29/22 09/29/22 12 Days Ago History ~09/17/22 Allergies Allergy/AdvReac Type Severity Reaction Status Date / Time lisinopril Allergy Unknown Verified 09/29/22 11:48 Current Medications Generic Name Dose Route Start Last Admin Trade Name Freq PRN Reason Stop Dose Admin Apixaban 5 mg 09/29/22 18:00 10/01/22 08:17 Apixaban 5 Mg Tablet PO 5 mg BID JAIR Administration Atorvastatin Calcium 20 mg 09/30/22 09:00 10/03/22 08:38 Atorvastatin 40 Mg Tablet PO 20 mg DAILY JAIR Administration Bisacodyl 10 mg 09/29/22 13:26 10/02/22 18:39 Bisacodyl 5 Mg Tablet PO 10 mg DAILY PRN Administration Constipation (see protocol) Protocol Bumetanide 2 mg 09/29/22 14:00 10/01/22 05:35 Bumetanide 0.25 Mg/Ml Sdv 10 Ml IVP 2 mg Q8H JAIR Administration Carvedilol 3.125 mg 09/29/22 21:00 10/03/22 08:38 Carvedilol 3.125 Mg Tablet PO 3.125 mg BID@0900,2100 JAIR Administration Cyclobenzaprine HCl 5 mg 10/03/22 10:50 10/03/22 11:15 Cyclobenzaprine 10 Mg Tablet PO 5 mg TID PRN Administration MUSCLE SPASMS Gabapentin 300 mg 10/01/22 18:00 10/03/22 08:37 Gabapentin 300 Mg Capsule PO 300 mg BID JAIR Administration Furosemide 100 mg/ Sodium 50 mls @ 15 mls/hr 10/01/22 15:15 10/03/22 11:18 Chloride IV 15 mls/hr .Q3H20M JAIR Administration Insulin Human Lispro 0 unit 09/30/22 08:00 10/03/22 08:38 Insulin Lispro 100 Unit/1 Ml SUBCUT 4 unit TIDWM JAIR Administration Protocol Levothyroxine Sodium 100 mcg 09/30/22 06:00 10/03/22 06:13 Levothyroxine 100 Mcg Tablet PO 100 mcg QAM JAIR Administration Metolazone 5 mg 09/30/22 09:00 10/01/22 08:16 Metolazone 5 Mg Tablet PO 5 mg DAILY JAIR Administration Non-Formulary Medication 400 mg 09/29/22 15:00 10/03/22 08:42 Guaifenesin PO 400 mg TID JAIR Administration Non-Formulary Medication 400 mg 09/29/22 21:00 10/02/22 08:54 Pentoxifylline PO 400 mg TID JAIR Administration Nystatin 1 applic 10/02/22 09:30 10/03/22 08:38 Nystatin Powder 15 Gm Btl TOPICAL 1 applic BID JAIR Administration Oxycodone/Acetaminophen 1 tab 09/29/22 13:31 10/03/22 08:42 Oxycodone-Apap 10-325 Mg Tablet PO 1 tab TID PRN Administration MODERATE TO SEVERE pain Pantoprazole Sodium 40 mg 09/29/22 18:00 10/03/22 08:[address] 40 Mg Tablet PO 40 mg BID JAIR Administration Tamsulosin HCl 0.4 mg 09/29/22 18:00 10/02/22 18:39 Tamsulosin 0.4 Mg Capsule PO 0.4 mg QPM JAIR Administration PFSH Acute PFSH: Medical History Abdominal pain Abnormal nuclear stress test Acute exacerbation of CHF (congestive heart failure) Acute on chronic diastolic (congestive) heart failure Acute on chronic systolic heart failure BRAIN (acute kidney injury) Anasarca Asymptomatic microscopic hematuria Atherosclerotic heart disease Bradycardia Patient has a longstanding history of atrial fibrillation and bradycardia. Chest pain CHF (congestive heart failure) Chronic atrial fibrillation Patient is on long-term oral anticoagulation. 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 He has mild to moderate diffuse peripheral arterial disease. Pain management contract signed Sleep apnea SOB (shortness of breath) Patient is known to have COPD Varicose veins of bilateral lower extremities with other complications Surgical History History of hip surgery Hx of artificial lens replacement Hx of cataract extraction Hx of toe surgery Hx of tonsillectomy Family History Father , at age 57 Cancer Mother , at age 91 Cancer breast Other CAD (coronary artery disease) Diabetes Denies family history of Clotting disorder Dementia Chronic kidney disease (CKD) Suicide Anesthesia complication Bleeding disorder Lung disease Stroke Social History Smoking and tobacco status: never smoked Second hand smoke exposure: No Alcohol intake: never Substance/Drug Use: never Lives independently: Yes Household members: spouse Housing: House Marital status: Current occupational status: employed Vitals/I&O/Wt Last Vital Signs Temp 97.8 F 10/03/22 08:00 Pulse 62 10/03/22 08:00 Resp 16 10/03/22 08:42 BP 129/64 10/03/22 08:00 Pulse Ox 92 10/03/22 08:42 O2 Del Method Nasal Cannula 10/03/22 08:00 O2 Flow Rate 2 10/03/22 08:00 FiO2 28 10/02/22 20:00 10/02/22 10/03/22 10/03/22 22:59 06:59 14:59 Intake Total 914.333 / 1556.833 242.5 / 1799.333 453.75 / 453.75 Output Total 350 / 1150 1050 / 2200 Balance 564.333 / 406.833 -807.5 / -400.667 453.75 / 453.75 Weight last 48 hrs Weight 294 lb 4 oz Weight 297 lb Weight 299 lb 14.4 oz Physical Exam Narrative: General : Patient is well developed , no acute distress, oriented x3 Head : Normal cephalic, a-traumatic. Ears : Pinnae and external canal are normal. Hearing is normal. Eyes : PERRLA, Sclera and injection are normal. No conjunctival discharge. Nose : Mucous membranes are without erythema. Throat : buccal mucosa is normal, gums are without significant recession or hypertrophy. Lungs : Equal chest rise bilaterally, no use of accessory muscles, trachea is midline. Cor : Rate and rhythm are normal. Abdomen : Soft, ND, NT, no g/r/m Extremities : Pitting edema of the bilateral lower extremities, no cyanosis or clubbing, dorsalis pedis pulses are present bilaterally, non-tender to palpation of calves. Upper extremities are normal bilaterally. Back : non-tender to palpation, no CVA tenderness. Neuro : CN II - XII intact, Upper and lower extremities have equal and full strength Urinary Catheter Management: Douglas: Cath Placed During This Visit: yes Reason for Continuing Indwelling Catheter: Accurate Measurement of Urinary O utput in Critically Ill Patients Urinary Catheter Date of Insertion: 09/29/22 Urinary Catheter Time of Insertion: 15:00 Data 10/04/22 02:38 10/04/22 02:38 A&P Assessment and plan (1) Fluid overload: (2) CKD (chronic kidney disease): Qualifiers: Chronic kidney disease stage: unspecified stage Qualified Code(s): N18.9 - Chronic kidney disease, unspecified Plan Permacath placement The risks and benefits of the procedure, including but not limited to, bleeding, infection, infection requiring Mediport removal antibiotic therapy and repeat surgery, damage to surrounding structures, scar, numbness, pain, pneumothorax requiring thoracostomy tube, were explained to the patient. He/She is understanding of the risks and wishes to proceed. Coding Level of Care Code 16742 Diagnoses Fluid overload E87.70 CKD (chronic kidney disease) N18.9 Chronic kidney disease stage: unspecified stage
--- NOTE | 2022-10-03 16:58 | P.PN_ITS ---
Subjective Subjective: Patient was seen and examined this morning, was complaining of SOB, as well as back pain, appears lethargic, BUN /SCR has continued to trend up. Medications: Medication Review Details: Generic Name Dose Route Start Last Admin Trade Name Freq PRN Reason Stop Dose Admin Apixaban 5 mg 09/29/22 18:00 10/01/22 08:17 Apixaban 5 Mg Ta blet PO 5 mg BID JAIR Administration Atorvastatin Calci um 20 mg 09/30/22 09:00 10/03/22 08:38 Atorvastatin 40 Mg Tablet PO 20 mg DAILY JAIR Administration Bisacodyl 10 mg 09/29/22 13:26 10/02/22 18:39 Bisacodyl 5 Mg T ablet PO 10 mg DAILY PRN Administration Constipation (see protocol) Protocol Bumetanide 2 mg 09/29/22 14:00 10/01/22 05:35 Bumetanide 0.25 Mg/Ml Sdv 10 Ml IVP 2 mg Q8H JAIR Administration Carvedilol 3.125 mg 09/29/22 21:00 10/03/22 08:38 Carvedilol 3.125 Mg Tablet PO 3.125 mg BID@0900,2100 JAIR Administration Cyclobenzaprine HC l 5 mg 10/03/22 10:50 10/03/22 11:15 Cyclobenzaprine 10 Mg Tablet PO 5 mg TID PRN Administration MUSCLE SPASMS Gabapentin 300 mg 10/01/22 18:00 10/03/22 08:37 Gabapentin 300 M g Capsule PO 300 mg BID JAIR Administration Furosemide 100 mg/ Sodium 50 mls @ 15 mls/h r 10/01/22 15:15 10/03/22 15:14 Chloride IV 15 mls/hr .Q3H20M JAIR Administration Insulin Human Lisp ro 0 unit 09/30/22 08:00 10/03/22 12:07 Insulin Lispro 1 00 Unit/1 Ml SUBCUT 6 unit TIDWM JAIR Administration Protocol Levothyroxine Sodi um 100 mcg 09/30/22 06:00 10/03/22 06:13 Levothyroxine 10 0 Mcg Tablet PO 100 mcg QAM JAIR Administration Metolazone 5 mg 09/30/22 09:00 10/01/22 08:16 Metolazone 5 Mg Tablet PO 5 mg DAILY JAIR Administration Non-Formulary Medi cation 400 mg 09/29/22 15:00 10/03/22 14:12 Guaifenesin PO Not Given TID JAIR Non-Formulary Medi cation 400 mg 09/29/22 21:00 10/02/22 08:54 Pentoxifylline PO 400 mg TID JAIR Administration Nystatin 1 applic 10/02/22 09:30 10/03/22 08:38 Nystatin Powder 15 Gm Btl TOPICAL 1 applic BID JAIR Administration Oxycodone/Acetamin ophen 1 tab 09/29/22 13:31 10/03/22 08:42 Oxycodone-Apap 1 0-325 Mg Tablet PO 1 tab TID PRN Administration MODERATE TO SEVER E pain Pantoprazole Sodiu m 40 mg 09/29/22 18:00 10/03/22 08:[address] 40 Mg Tablet PO 40 mg BID JAIR Administration Tamsulosin HCl 0.4 mg 09/29/22 18:00 10/02/22 18:39 Tamsulosin 0.4 M g Capsule PO 0.4 mg QPM JAIR Administration Vitals/I&O/Wt Last Vital Signs Temp 98.1 F 10/03/22 12:00 Pulse 60 10/03/22 16:00 Resp 16 10/03/22 16:00 BP 117/58 10/03/22 16:00 Pulse Ox 96 10/03/22 16:00 O2 Del Method Nasal Cannula 10/03/22 16:00 O2 Flow Rate 2 10/03/22 16:00 FiO2 28 10/02/22 20:00 10/03/22 10/03/22 10/03/22 06:59 14:59 22:59 Intake Total 242.5 / 1799.333 789.75 / 789.75 50 / 839.75 Output Total 1050 / 2200 450 / 450 450 / 900 Balance -807.5 / -400.667 339.75 / 339.75 -400 / -60.25 Weight last 48 hrs Weight 133.47 kg Weight 134.717 kg Weight 136.032 kg Physical Exam HENMT: COMMON NORMALS: normocephalic and atraumatic HEAD & SCALP: normocephalic and atraumatic Resp: COMMON NORMALS: clear to auscultation bilaterally AUSCULTATION: clear to auscultation bilaterally Cardio: OTHER: Irregularly irregular rhythm, S1-S2 variable intensity GI: COMMON NORMALS: Normal to inspection, nondistended, normoactive bowel sounds present, Soft to palpation, non-tender, No hepatosplenomegaly present and no masses AUSCULTATION: Yes normoactive bowel sounds PALPATION: Yes Soft to palpation and Yes No hepatosplenomegaly present RECTAL EXAM: Yes deferred Extremity: NARRATIVE EXTREMITY EXAM: 2+ bilateral lower extremity pitting edema up to knee Urinary Catheter Management: Douglas: Cath Placed During This Visit: yes Reason for Continuing Indwelling Catheter: Accurate Measurement of Urinary Output in Critically Ill Patients Urinary Catheter Date of Insertion: 09/29/22 Urinary Catheter Time of Insertion: 15:00 Data 10/03/22 02:19 10/03/22 02:19 A&P Assessment and plan (1) CKD (chronic kidney disease): (2) Hypokalemia: (3) CHF (congestive heart failure): (4) COPD (chronic obstructive pulmonary disease): (5) NSTEMI (non-ST elevated myocardial infarction): (6) Abnormal nuclear stress test: Plan 76 year old male?with PMHx of NICM, HFrEF (LVEF=20-25% on last echo in 09/2022), IDDM-2,? diabetic peripheral neuropathy,chronicl atrial fibrillation, PAD, CKD and status post cardiac pacemaker procedure..Prior LHC after a abnormal myocardial perfusion imaging that showed 50% eccentric LCx lesion. Recent nuclear stress test done in September this year showed: Results appreciated. Came in today with chief complaint of worsening bilateral lower extremity swelling, worsening shortness of breath ,orthopnea, weight gain, increasing abdominal swelling. Currently he is being managed for Assessment: Decompensated HFrEF (LVEF=20-25% on last echo in 09/2022). Patient was worsening bilateral lower extremity swelling, orthopnea, weight gain, abdominal swelling Last 2D echo results appreciated: Suggestive of BiV failure Was on Bumex 2 mg IV 3 times daily, metolazone 5 mg p.o. daily currently on hold. Currently on Lasix drip currently running @ 40 mg/hr Monitor intake output charting Daily weight Monitor electrolytes : K>4, MG>2 Telemetry monitoring NSTEMI: Troponin trend:128-120 EKG has shown: Paced rhythm Most recent nuclear stress test done in September 2022: Results appreciated 2D echo: october 01: Left ventricle is dilated.? LV systolic function is severely ?reduced with EF of 20 to 25%.? RV is dilated and moderately hypokinetic. ?Biatrial enlargement ?Moderate to severe eccenteric mitral regurgitation,?Mild aortic regurgitation,?Moderate tricuspid regurgitation. Moderate pulmonary ?hypertension,?Mild pulmonic regurgitation. Cardiology on board. Severe hypokalemia: Monitor and replace serum potassium History of atrial fibrillation: Continue carvedilol Was on Eliquis currently on hold Coagulopathy: Likely secondary to possibly underlying liver cirrhosis Currently INR is 2.4. Continue to monitor INR No active bleeding noted at this BRAIN ON advanced CKD potentially progressing to ESRD: Likely multifactorial secondary to CRS/ HRS/MR/ Admission serum creatinine is 2.1, more or less appears to be his baseline serum creatinine Follow abdominal ultrasound: Monitor BMP for now Monitor intake output charting Monitor electrolytes Avoid nephrotoxic's Nephrology on board, Tunneled Dialysis catheter in am Will be placed on H/D Metabolic alkalosis: ABG results appreciated Hypervolemic hyponatremia with relative SIADH: Secondary to volume overload secondary decompensated heart failure Continue IV diuresis Monitor serum sodium History of Diabetes: LDSSI, monitor fingerstick glucose Elevated total bilirubin: Possible congestive hepatopathy, Liver cirrhosis: Possibly cardiac cirrhosis, secondary to longstanding con gestive hepatopathy CODE STATUS: Full code DVT prophylaxis not needed Eliquis will be sufficient Attestations Medical Necessity Statement*: Needs to be in hospital for management of heart failure as well as renal failure. Coding Level of Care Code Acute Code for Chg Fwd Diagnoses CKD (chronic kidney disease) N18.9 Hypokalemia E87.6 CHF (congestive heart failure) I50.9 COPD (chronic obstructive pulmonary disease) J44.9 NSTEMI (non-ST elevated myocardial infarction) I21.4 Abnormal nuclear stress test R94.39
[2022-10-03 17:23] LABS: Anion Gap 16.9 (5-19); Calcium 8.6 mg/dL (8.5-10.5); Carbon Dioxide 30 mmol/L (22-29); Chloride 83 mmol/L (98-107); Glucose 224 mg/dL (65-115); Osmolality Calculated 303 mOsm/kg (285-295); Sodium 127 mmol/L (136-145)
--- NOTE | 2022-10-03 17:28 | PC.NURSE ---
Patients 5pm BG was 211. BG was checked on patients dexcom.
[2022-10-03 17:31] LABS: Potassium 2.9 mmol/L (3.5-5.1)
[2022-10-03 17:32] LABS: Blood Urea Nitrogen 103 mg/dL (8-23)
[2022-10-03] MEDS: lidocaine 1% 5 ML in potassium chloride premix 100 ML 26.25 ML IV (18:19)
[2022-10-03] MEDS: tamsulosin 0.4 mg Capsule PO (18:19)
[2022-10-03] MEDS: bisacodyl 5 mg Tablet 10 MG PO (18:19)
--- NOTE | 2022-10-03 21:00 | PC.NURSE ---
Patient's 2100 Blood Glucose is 286. Patient has a Dexcom Sensor.
--- NOTE | 2022-10-03 21:34 | PC.NURSE ---
Doug refused Accucheck, blood glucose on dexcom was 236.
[2022-10-04] VITALS (42 sets, daily range): BP systolic 97–131; BP diastolic 58–85; PULSE 56–80; RESP 6–29; TEMP 36–36.7; O2SAT 78–100
[2022-10-04] MEDS: FUROsemide 100 MG in sodium chloride 0.9% 40 ML 15 MG IV ×2 (00:51→04:05)
[2022-10-04] MEDS: oxyCODONE-APAP 10-325 mg Tablet 1 TAB PO ×3 (01:05→22:32)
[2022-10-04] MEDS: cyclobenzaprine 10 mg Tablet 5 MG PO ×3 (01:06→21:11)
[2022-10-04 04:09] LABS: Basophils # 0.1 10^3/uL (0.0-0.1); Basophils % 0.7 %; Eosinophils # 0.3 10^3/uL (0.0-0.8); Eosinophils % 3.1 %; Hemoglobin 12.4 g/dL (11.7-16.6); Lymphocytes % 12.1 %; Mean Corpuscular HGB Conc 32.6 g/dL (30.0-36.0); Mean Corpuscular Hemoglobin 27.9 pg (28.0-34.0); Mean Corpuscular Volume 85.6 fl (80-94); Mean Platelet Volume 11.3 fL (7.4-10.4); Monocytes # 0.8 10^3/uL (0.2-0.9); Monocytes % 9.6 %; Neutrophils # 5.98 10^3/uL (1.8-7.7); Neutrophils % 73.9 %; Nucleated Red Blood Cells % 0 %; Platelet Count 245 10^3/cmm (130-400); Red Blood Count 4.44 10^6/uL (4.1-5.3); Red Cell Distribution Width 16.6 % (12.1-15.1); White Blood Count 8.1 10^3/uL (4.0-10.0)
[2022-10-04 04:13] LABS: INR 1.78 (0.8-1.2)
[2022-10-04 04:26] LABS: Alanine Aminotransferase 11 U/L (0-41); Albumin Level 3.4 g/dL (3.5-5.2); Alkaline Phosphatase 192 U/L (40-130); Anion Gap 17.1 (5-19); Aspartate Amino Transferase 25 U/L (0-40); Calcium 8.8 mg/dL (8.5-10.5); Carbon Dioxide 32 mmol/L (22-29); Chloride 83 mmol/L (98-107); Globulin 3.4 g/dL (1.3-4.6); Glucose 230 mg/dL (65-115); Osmolality Calculated 308 mOsm/kg (285-295); Potassium 3.1 mmol/L (3.5-5.1); Sodium 129 mmol/L (136-145); Total Bilirubin 1.8 mg/dL (0.15-1.2); Total Protein 6.8 g/dL (6.6-8.7)
[2022-10-04 04:41] LABS: Blood Urea Nitrogen 103 mg/dL (8-23)
--- NOTE | 2022-10-04 06:04 | PC.NURSE ---
Patients Blood Glucose at 0600 is 244. Per his Dexcom Sensor.
[2022-10-04] MEDS: levothyroxine 100 mcg Tablet PO (06:17)
--- NOTE | 2022-10-04 06:30 | PC.NURSE ---
Blood glucose on patients dexcom was 244
--- NOTE | 2022-10-04 07:30 | PM.PN ---
Subjective Subjective: No new complaints Medications: Reviewed: Yes Vitals/I&O/Wt Last Vital Signs Temp 97.6 F 10/04/22 03:54 Pulse 61 10/04/22 07:00 Resp 20 H 10/04/22 07:00 BP 103/69 10/04/22 07:00 Pulse Ox 95 10/04/22 07:00 O2 Del Method Nasal Cannula 10/04/22 03:54 O2 Flow Rate 2 10/03/22 20:24 FiO2 28 10/02/22 20:00 10/03/22 10/04/22 10/04/22 22:59 06:59 14:59 Intake Total 1139 / 1928.75 97.5 / 2026.25 48.75 / 48.75 Output Total 800 / 1250 1600 / 2850 Balance 339 / 678.75 -1502.5 / -823.75 48.75 / 48.75 Weight last 48 hrs Weight 132.358 kg Weight 133.47 kg Physical Exam Const: COMMON NORMALS: no acute distress and alert Extremity: NARRATIVE EXTREMITY EXAM: anasarca Neuro: SENSORIUM/ORIENTATION: Yes alert Urinary Catheter Management: Douglas: Cath Placed During This Visit: yes Reason for Continuing Indwelling Catheter: Acute Urinary Retention or Obstruction Urinary Catheter Date of Insertion: 09/29/22 Urinary Catheter Time of Insertion: 15:00 Data 10/04/22 02:38 10/04/22 02:38 A&P Assessment and plan (1) Fluid overload: (2) BRAIN (acute kidney injury): Plan 1. Acute kidney injury, cardiorenal due to low cardiac output, biventricular heart failure, severe MR, possible underlying cirrhosis, possible hepatorenal as well. Urine output improved on lasix infusion, but is only 500 ml neg since admission. Renal function worse. 2. Volume overload 3. Hypokalemia, metabolic alkalosis 4. Hypervolemic hyponatremia, stable 5. Coagulopathy, improved Rec: I had a detailed discussion with Refugio. Recommended initiation of HD. Discussed insertion of dialysis catheter, dialysis procedure, risks and benefits. He is agreeable. Plan for placement of tunneled HD catheter today and HD today Attestations Medical Necessity Statement*: per medicine Coding Level of Care Code Acute Code for Chg Fwd Diagnoses Fluid overload E87.70 BRAIN (acute kidney injury) N17.9
--- NOTE | 2022-10-04 08:49 | PC.SOCIAL ---
IMM Updated Updated pt on IMM. No questions voiced. Provided pt a copy. Initialed, dated, & timed copy in chart.
[2022-10-04] MEDS: pantoprazole DR 40 mg Tablet PO ×2 (08:50→17:35)
[2022-10-04] MEDS: carvedilol 3.125 mg Tablet PO ×2 (08:50→21:11)
[2022-10-04] MEDS: gabapentin 300 mg Capsule PO ×2 (08:50→17:36)
[2022-10-04] MEDS: atorvastatin 40 mg Tablet 20 MG PO (08:50)
[2022-10-04] MEDS: nystatin powder 15 gm Btl 1 APPLIC TOPICAL ×2 (08:56→17:47)
[2022-10-04] MEDS: GUAIFENESIN 400 MG 400 EACH PO ×2 (08:56→21:11)
--- NOTE | 2022-10-04 09:21 | PM.PN ---
Vitals/I&O/Wt Last Vital Signs Temp 97.6 F 10/04/22 03:54 Pulse 80 10/04/22 08:00 Resp 17 10/04/22 08:00 BP 104/76 10/04/22 08:00 Pulse Ox 97 10/04/22 08:00 O2 Del Method Nasal Cannula 10/04/22 08:00 O2 Flow Rate 2 10/04/22 08:00 FiO2 28 10/02/22 20:00 10/03/22 10/04/22 10/04/22 22:59 06:59 14:59 Intake Total 1139 / 1928.75 97.5 / 2025.25 48.75 / 48.75 Output Total 800 / 1250 1600 / 2850 Balance 339 / 678.75 -1502.5 / -823.75 48.75 / 48.75 Weight last 48 hrs Weight 291 lb 12.8 oz Weight 294 lb 4 oz Physical Exam Urinary Catheter Management: Douglas: Cath Placed During This Visit: yes Reason for Continuing Indwelling Catheter: Acute Urinary Retention or Obstruction Urinary Catheter Date of Insertion: 09/29/22 Urinary Catheter Time of Insertion: 15:00 Data 10/04/22 02:38 10/04/22 02:38 A&P Assessment and plan (1) Fluid overload: (2) CKD (chronic kidney disease): Qualifiers: Chronic kidney disease stage: unspecified stage Qualified Code(s): N18.9 - Chronic kidney disease, unspecified Plan Permacath placement The risks and benefits of the procedure, including but not limited to, bleeding, infection, infection requiring Mediport removal antibiotic therapy and repeat surgery, damage to surrounding structures, scar, numbness, pain, pneumothorax requiring thoracostomy tube, were explained to the patient. He/She is understanding of the risks and wishes to proceed. INR continues to be elevated at 1.78. We will infuse 2 units of FFP just prior to incision. Attestations Medical Necessity Statement*: Per primary Coding Level of Care Code Acute Code for Chg Fwd Diagnoses Fluid overload E87.70 CKD (chronic kidney disease) N18.9 Chronic kidney disease stage: unspecified stage
--- NOTE | 2022-10-04 09:36 | PC.NURSE ---
to or for dialysis cath placement,at this time
--- NOTE | 2022-10-04 09:51 | P.ANESASSM_ITS ---
Pre-Anesthetic Assessment Height/Weight: Height 1.83 m Weight 132.358 kg Temp Pulse Resp BP Pulse Ox O2 Del Method O2 Flow Rate 97.6 F 80 17 104/76 97 Nasal Cannula 2 10/04/22 03:54 10/04/22 08:00 10/04/22 08:00 10/04/22 08:00 10/04/22 08:00 10/04/22 08:00 10/04/22 08:00 FiO2 28 10/02/22 20:00 Operation Date: 10/04/22 14:15 Proposed Procedures p Dialysis Catheter Insertion(Not Applicable) - Ephraim Lopez DO Familial anesthetic complications: None Last intake: Intake Last Liquid Date 10/03/22 Last Liquid Time 21:45 Last Solid Date 10/03/22 Last Solid Time 19:00 Social No alcohol and No tobacco Exam alert, oriented x 3, clear to auscultation bilaterally and regular rate & rhythm dminished Airway Mallampati: Class II Dentition: other (implants) Pulmonary Chronic Obstructive Pulmonary Disease, Sleep Apnea and Shortness of Breath (fluid overload ) COPD Nasal cannula CV/HEM Coronary Artery Disease, Congestive Heart Failure, Myocardial Infarction (stemi) and Peripheral Vascular Disease Pacemaker at VVIR setting 10/01 myocardial perfusion scan ?IMPRESSIONS ?1.? Abnormal myocardial perfusion imaging with medium sized area of prior ?infarct in RCA territory. ?2.? Large area of prior infarct with darron-infarct ischemia seen in left ?circumflex artery territory. ?3.? Small area of prior infarct with darron-infarct ischemia is seen in LAD ?territory. ?4. LV systolic function is mild to moderately reduced. 10/01 Stress test Conclusion: 1.? Normal EKG response to Lexiscan infusion 2.? No Lexiscan induced chest pain or cardiac arrhythmia. 3.? Normal blood pressure and heart rate response. 4.? Sestamibi/sestamibi perfusion scan pending; see separate report. 10/01 echo CONCLUSIONS ?Left ventricle is dilated.? LV systolic function is severely ?reduced with EF of 20 to 25%.? ?RV is dilated and moderately hypokinetic. ?Biatrial enlargement ?Moderate to severe eccenteric mitral regurgitation ?Mild aortic regurgitation ?Moderate tricuspid regurgitation. Moderate pulmonary ?hypertension ?Mild pulmonic regurgitation ?Pleural effusion is noted ?IVC is dilated ?Compared to prior echocardiogram from 03/2022, LV systolic ?function has decreased further and is 20-25% now. Kidney Stones Hepatic Cirrhosis (no hx of ascites per patient) Metabolic Diabetes Mellitus and Hyperlipidemia Anesthetic Plan ASA status: 4 Anesthesia: MAC Risk of > 500 ml blood loss (7ml/kg in children): No Medications/Allergies Home Medications Medication Instructions Recorded Confirmed Last Taken Type apixaban 5 mg tablet (Eliquis) 5 mg PO BID 04/09/19 09/29/22 09/29/22 History omeprazole 20 mg capsule,delayed 20 mg PO BID 04/09/19 09/29/22 09/29/22 History release vitamin E (dl, acetate) 450 mg 1,000 unit PO DAILY 04/09/19 09/29/22 11/20/20 History (1,000 unit) capsule pentoxifylline 400 mg 400 mg PO TID 04/12/19 09/29/22 09/29/22 08:30 History tablet,extended release atorvastatin 20 mg tablet 20 mg PO DAILY 04/02/21 09/29/22 Unknown History metolazone 5 mg tablet 5 mg PO EVERY OTHER DAY 06/02/21 09/29/22 09/28/22 History blood-glucose meter,continuous #1 ea 09/09/21 09/29/22 Unknown Rx (Dexcom G6 Hand Edger) diabetic shoes with 3 custom #1 ea 05/20/22 09/29/22 Unknown Rx inserts bumetanide 2 mg tablet 2 mg PO TID 06/07/22 09/29/22 09/29/22 History blood-glucose sensor (Dexcom G6 #9 ea 07/28/22 09/29/22 Unknown Rx Sensor device) blood-glucose transmitter (Dexcom #1 ea 07/28/22 09/29/22 Unknown Rx G6 Transmitter device) Juzo Lymphedema Wraps Bilaterally #1 ea 08/12/22 09/29/22 Unknown Rx 2 pairs Juzo compression wraps to right #1 ea 08/16/22 09/29/22 Unknown Rx and left oxycodone-acetaminophen 10 mg-325 1 tab PO TID PRN pain 30 days #90 09/13/22 09/29/22 09/29/22 Rx mg tablet tabs acarbose 100 mg tablet 100 mg PO TID 09/15/22 09/29/22 09/29/22 History cinnamon bark 500 mg capsule 500 mg PO BID PRN unknown 09/15/22 09/29/22 Unknown History (Cinnamon) gabapentin 800 mg tablet 800 mg PO TID 09/15/22 09/29/22 09/29/22 History insulin aspart U-100 100 unit/mL See Rx Instructions .Route .COMPLEX 09/15/22 09/29/22 Unknown History (3 mL) subcutaneous pen (Novolog FlexPen U-100 Insulin aspart) insulin detemir U-100 100 unit/mL 25 - 30 unit SUBCUT QAM 09/15/22 09/29/22 09/29/22 History (3 mL) subcutaneous pen (Levemir 30 units FlexTouch U-100 Insulin) levothyroxine 100 mcg tablet 100 mcg PO QAM 09/15/22 09/29/22 09/29/22 History omega-3 fatty acids 1,000 mg 1,000 mg PO BID 09/15/22 09/29/22 09/29/22 History capsule zinc acetate 50 mg (zinc) capsule 50 mg PO DAILY 09/15/22 09/29/22 Unknown History carvedilol 3.125 mg tablet 3.125 mg PO BID 30 days #60 tabs 09/25/22 09/29/22 Unknown Rx capsaicin 0.075 % topical cream 1 applic topical TID PRN Pain 09/29/22 09/29/22 Unknown History carbamide peroxide 6.5 % ear drops See Rx Instructions .Route .COMPLEX 09/29/22 09/29/22 Unknown History clotrimazole 1 % topical cream 1 applic topical DAILY PRN SCALES 09/29/22 09/29/22 Unknown History ON FEET guaifenesin 400 mg tablet 400 mg PO TID 09/29/22 09/29/22 09/29/22 History lactulose 10 gram/15 mL oral 15 ml PO DAILY PRN Constipation 09/29/22 09/29/22 09/28/22 History solution lidocaine 5 % topical patch 1 patch topical DAILY PRN Pain 09/29/22 09/29/22 Unknown History tamsulosin 0.4 mg capsule (Flomax) 0.4 mg PO QPM 09/29/22 09/29/22 09/28/22 History testosterone 2 pump topical DAILY 09/29/22 09/29/22 12 Days Ago History ~09/17/22 Allergies Allergy/AdvReac Type Severity Reaction Status Date / Time lisinopril Allergy Unknown Verified 09/29/22 11:48 Current Medications Generic Name Dose Route Start Last Admin Trade Name Fahadq PRN Reason Stop Dose Admin Apixaban 5 mg 09/29/22 18:00 10/01/22 08:17 Apixaban 5 Mg Tablet PO 5 mg BID JAIR Administration Atorvastatin Calcium 20 mg 09/30/22 09:00 10/04/22 08:50 Atorvastatin 40 Mg Tablet PO 20 mg DAILY JAIR Administration Bisacodyl 10 mg 09/29/22 13:26 10/03/22 18:19 Bisacodyl 5 Mg Tablet PO 10 mg DAILY PRN Administration Constipation (see protocol) Protocol Bumetanide 2 mg 09/29/22 14:00 10/01/22 05:35 Bumetanide 0.25 Mg/Ml Sdv 10 Ml IVP 2 mg Q8H JAIR Administration Carvedilol 3.125 mg 09/29/22 21:00 10/04/22 08:50 Carvedilol 3.125 Mg Tablet PO 3.125 mg BID@0900,2100 JAIR Administration Cyclobenzaprine HCl 5 mg 10/03/22 10:50 10/04/22 08:49 Cyclobenzaprine 10 Mg Tablet PO 5 mg TID PRN Administration MUSCLE SPASMS Gabapentin 300 mg 10/01/22 18:00 10/04/22 08:50 Gabapentin 300 Mg Capsule PO 300 mg BID JAIR Administration Insulin Human Lispro 0 unit 09/30/22 08:00 10/04/22 08:51 Insulin Lispro 100 Unit/1 Ml SUBCUT Not Given TIDWM [facility] Protocol Levothyroxine Sodium 100 mcg 09/30/22 06:00 10/04/22 06:17 Levothyroxine 100 Mcg Tablet PO 100 mcg QAM JAIR Administration Metolazone 5 mg 09/30/22 09:00 10/01/22 08:16 Metolazone 5 Mg Tablet PO 5 mg DAILY JAIR Administration Non-Formulary Medication 400 mg 09/29/22 15:00 10/04/22 08:56 Guaifenesin PO 400 mg TID JAIR Administration Non-Formulary Medication 400 mg 09/29/22 21:00 10/02/22 08:54 Pentoxifylline PO 400 mg TID JAIR Administration Nystatin 1 applic 10/02/22 09:30 10/04/22 08:56 Nystatin Powder 15 Gm Btl TOPICAL 1 applic BID JAIR Administration Oxycodone/Acetaminophen 1 tab 09/29/22 13:31 10/04/22 01:05 Oxycodone-Apap 10-325 Mg Tablet PO 1 tab TID PRN Administration MODERATE TO SEVERE pain Pantoprazole Sodium 40 mg 09/29/22 18:00 10/04/22 08:[address] 40 Mg Tablet PO 40 mg BID JAIR Administration Tamsulosin HCl 0.4 mg 09/29/22 18:00 10/03/22 18:19 Tamsulosin 0.4 Mg Capsule PO 0.4 mg QPM JAIR Administration Additional Medication Information Generic Name Dose Route Start Last Admin Trade Name Freq PRN Reason Stop Dose Admin Apixaban 5 mg 09/29/22 18:00 10/01/22 08:17 Apixaban 5 Mg Tablet PO 5 mg BID JAIR Administration Atorvastatin Calcium 20 mg 09/30/22 09:00 10/03/22 08:38 Atorvastatin 40 Mg Tablet PO 20 mg DAILY JAIR Administration Bisacodyl 10 mg 09/29/22 13:26 10/02/22 18:39 Bisacodyl 5 Mg Tablet PO 10 mg DAILY PRN Administration Constipation (see protocol) Protocol Bumetanide 2 mg 09/29/22 14:00 10/01/22 05:35 Bumetanide 0.25 Mg/Ml Sdv 10 Ml IVP 2 mg Q8H JAIR Administration Carvedilol 3.125 mg 09/29/22 21:00 10/03/22 08:38 Carvedilol 3.125 Mg Tablet PO 3.125 mg BID@0900,2100 JAIR Administration Cyclobenzaprine HCl 5 mg 10/03/22 10:50 10/03/22 11:15 Cyclobenzaprine 10 Mg Tablet PO 5 mg TID PRN Administration MUSCLE SPASMS Gabapentin 300 mg 10/01/22 18:00 10/03/22 08:37 Gabapentin 300 Mg Capsule PO 300 mg BID JAIR Administration Furosemide 100 mg/ Sodium 50 mls @ 15 mls/hr 10/01/22 15:15 10/03/22 15:14 Chloride IV 15 mls/hr .Q3H20M JAIR Administration Insulin Human Lispro 0 unit 09/30/22 08:00 10/03/22 12:07 Insulin Lispro 100 Unit/1 Ml SUBCUT 6 unit TIDWM JAIR Administration Protocol Levothyroxine Sodium 100 mcg 09/30/22 06:00 10/03/22 06:13 Levothyroxine 100 Mcg Tablet PO 100 mcg QAM JAIR Administration Metolazone 5 mg 09/30/22 09:00 10/01/22 08:16 Metolazone 5 Mg Tablet PO 5 mg DAILY JAIR Administration Non-Formulary Medication 400 mg 09/29/22 15:00 10/03/22 14:12 Guaifenesin PO Not Given TID [facility] Non-Formulary Medication 400 mg 09/29/22 21:00 10/02/22 08:54 Pentoxifylline PO 400 mg TID JAIR Administration Nystatin 1 applic 10/02/22 09:30 10/03/22 08:38 Nystatin Powder 15 Gm Btl TOPICAL 1 applic BID JAIR Administration Oxycodone/Acetaminophen 1 tab 09/29/22 13:31 10/03/22 08:42 Oxycodone-Apap 10-325 Mg Tablet PO 1 tab TID PRN Administration MODERATE TO SEVERE pain Pantoprazole Sodium 40 mg 09/29/22 18:00 10/03/22 08:[address] 40 Mg Tablet PO 40 mg BID JAIR Administration Tamsulosin HCl 0.4 mg 09/29/22 18:00 10/02/22 18:39 Tamsulosin 0.4 Mg Capsule PO 0.4 mg QPM JAIR Administration [facility] Anesthesia Medical History Abdominal pain Abnormal nuclear stress test Acute exacerbation of CHF (congestive heart failure) Acute on chronic diastolic (congestive) heart failure Acute on chronic systolic heart failure BRAIN (acute kidney injury) Anasarca Asymptomatic microscopic hematuria Atherosclerotic heart disease Bradycardia Patient has a longstanding history of atrial fibrillation and bradycardia. Chest pain CHF (congestive heart failure) Chronic atrial fibrillation Patient is on long-term oral anticoagulation. Chronic venous insufficiency Cirrhosis COPD (chronic obstructive pulmonary disease) Diabetes Diverticulosis History of nonmelanoma skin cancer Hx of cardiac pacemaker Hyperlipidemia Hypertension Left upper quadrant pain USP (current) use of opiate analgesic Non-healing ulcer Onychodystrophy Osteomyelitis Right toe status post debridement and bone biopsy, MSSA 2018 PAD (peripheral artery disease) Patient has two-vessel runoff on the left side and three-vessel runoff on the right side. He has mild to moderate diffuse peripheral arterial disease. Pain management contract signed Sleep apnea SOB (shortness of breath) Patient is known to have COPD Varicose veins of bilateral lower extremities with other complications Surgical History History of hip surgery Hx of artificial lens replacement Hx of cataract extraction Hx of toe surgery Hx of tonsillectomy Family History Father , at age 57 Cancer Mother , at age 91 Cancer breast Other CAD (coronary artery disease) Diabetes Denies family history of Clotting disorder Dementia Chronic kidney disease (CKD) Suicide Anesthesia complication Bleeding disorder Lung disease Stroke Social History Smoking and tobacco status: never smoked Second hand smoke exposure: No Alcohol intake: never Substance/Drug Use: never Lives independently: Yes Household members: spouse Housing: House Marital status: Current occupational status: employed Data Anesthesia 10/04/22 02:38 10/04/22 02:38 Short CBC 10/03/22 10/04/22 Range/Units 02:19 02:38 WBC 8.8 8.1 (4.0-10.0) 10^3/uL Hgb 12.2 12.4 (11.7-16.6) g/dL Hct 37.8 L 38.0 L (42.0-52.0) % MCV 85.1 85.6 (80-94) fl Plt Count 224 245 (130-400) 10^3/cmm Neut % (Auto) 77.2 73.9 % Neut # (Auto) 6.81 5.98 (1.8-7.7) 10^3/uL BMP 10/03/22 10/03/22 10/04/22 02:19 16:42 02:38 Sodium 128 L 127 L 129 L Potassium 3.2 L 2.9 L 3.1 L Chloride 82 L 83 L 83 L Carbon Dioxide 32 H 30 H 32 H BUN 103 H* 103 H* 103 H* Creatinine 2.3 H 2.1 H 2.2 H Glucose 244 H 224 H 230 H Calcium 8.9 8.6 8.8 Liver Function 10/03/22 10/04/22 Range/Units 02:19 02:38 Total Bilirubin 2.0 H 1.8 H (0.15-1.2) mg/dL AST 33 25 (0-40) U/L ALT 10 11 (0-41) U/L Alkaline Phosphatase 199 H 192 H (40-130) U/L Albumin 3.5 3.4 L (3.5-5.2) g/dL Coags 10/03/22 10/04/22 02:19 02:38 PT 22.60 H 21.30 H INR 1.92 H 1.78 H Cardiac Studies: Echocardiogram 09/15/22 Echocardiogram Limited Views 03/17/22 Echocardiogram Ultrasound 06/04/20 Sestamibi Stress Test (Cardiology) 09/21 Holter Monitor 10/05/19
[2022-10-04 09:58] LABS: Glucose Point of Care 235 mg/dL (70-110)
[2022-10-04] MEDS: sodium chloride 0.9% 1,000 ML 30 ML IV (10:12)
--- NOTE | 2022-10-04 10:26 | SC_ITS ---
WS: [id number] C-ARM RADIOGRAPHS CHEST; 3 IMAGES HISTORY: Intraoperative COMPARISON: None available. Intraoperative imaging during dialysis catheter placement. There is a catheter projected over the RIG HT thorax. Detail is otherwise limited. SC/C-arm FL for CVA [id number] IMPRESSION: Intraoperative imaging during dialysis port placement.
[2022-10-04] MEDS: ceFAZolin 2,000 MG in sodium chloride 0.9% (plus) 50 ML 100 MG IV (10:45)
--- NOTE | 2022-10-04 10:58 | PM.PN ---
Subjective Subjective: Patient is drowsy. Denies chest pain. Vitals/I&O/Wt Last Vital Signs Temp 97.0 F L 10/04/22 09:52 Pulse 60 10/04/22 09:52 Resp 16 10/04/22 09:52 BP 105/63 10/04/22 09:52 Pulse Ox 95 10/04/22 09:52 O2 Del Method Room Air 10/04/22 09:52 O2 Flow Rate 2 10/04/22 08:00 FiO2 28 10/02/22 20:00 10/03/22 10/04/22 10/04/22 22:59 06:59 14:59 Intake Total 1139 / 1928.75 97.5 / 2026.25 48.75 / 48.75 Output Total 800 / 1250 1600 / 2850 Balance 339 / 678.75 -1502.5 / -823.75 48.75 / 48.75 Weight last 48 hrs Weight 291 lb 12.8 oz Weight 294 lb 4 oz Physical Exam Narrative: GENERAL: Patient is drowsy NECK: No jugular vein distension. [] HEENT: No cyanosis. No icterus. No pallor. [] HEART: Regular S1 and S2. No murmur, rub or gallop. [] LUNGS: Clear to auscultate bilaterally. [] CENTRAL NERVOUS SYSTEM: Grossly nonfocal. [] EXTREMITIES: Lower extremities with 1+ edema bilaterally. Urinary Catheter Management: Douglas: Cath Placed During This Visit: yes Reason for Continuing Indwelling Catheter: Acute Urinary Retention or Obstruction Urinary Catheter Date of Insertion: 09/29/22 Urinary Catheter Time of Insertion: 15:00 Data 10/04/22 02:38 10/04/22 02:38 A&P Assessment and plan (1) CHF (congestive heart failure): (2) Acute on chronic diastolic (congestive) heart failure: (3) BRAIN (acute kidney injury): (4) CKD (chronic kidney disease): (5) COPD (chronic obstructive pulmonary disease): (6) OSITO (obstructive sleep apnea): Plan NSTEMI ruled out with no significant troponin uptrend. Plan for dialysis. Once patient is stable, plan for coronary angiogram. Thank you for involving us with care of this patient. We will continue to follow. Please call with questions. Attestations Medical Necessity Statement*: Care expected to cross 2 midnights. Coding Level of Care Code Acute Code for Chg Fwd Diagnoses CHF (congestive heart failure) I50.9 Acute on chronic diastolic (congestive) heart failure I50.33 BRAIN (acute kidney injury) N17.9 CKD (chronic kidney disease) N18.9 COPD (chronic obstructive pulmonary disease) J44.9 OSITO (obstructive sleep apnea) G47.33
[2022-10-04] MEDS: lidocaine-epi 2% 20 mL INJ INJECTION (11:00)
[2022-10-04 11:08] LABS: Hepatitis B Core AB, Total Non-Reactive (Nonreactive); Hepatitis B Surface Antigen Non-Reactive (Nonreactive)
[2022-10-04] MEDS: heparin, porcine 1,000 unit/mL INJ 10 mL 10000 UNIT INTRACATH (11:11)
[2022-10-04 11:12] LABS: Hepatitis B Surface AB < 3.5 (11.5-1000)
--- NOTE | 2022-10-04 11:26 | PM.OP ---
Operative Report Date of procedure: October 04, 2022 Pre-op diagnosis: Chronic kidney disease Post-op diagnosis: same Procedure done: Permacath placement Implants: Permacath Specimens removed/disposition: None Surgeon: Dr. Ephraim Lopez DO Anesthesia: MAC Estimated blood loss (mL): 5 Complications: None apparent Brief History: This very pleasant 76-year-old gentleman with chronic kidney disease. Nephrology asked for a tunneled hemodialysis catheter. Cath placement was indicated. The risk and benefits were explained and documented. Procedure: Patient was taken to the operating room and placed supine on the operating room table. All bony prominences were padded. He was given IV sedation and monitored throughout the case by the anesthesia personnel. SCDs were placed and turned on. The arms were tucked to the side. Patient received Vancomycin preoperatively IV. The bilateral chest wall was prepped and draped in usual sterile fashion using chlorhexidine base prep. Sterile drapes were applied. We did procedure pause prior to beginning. An 18 gauge needle was placed in the right internal jugular vein under ultrasound guidance. Dark, nonpulsatile blood was aspirated. A guidewire was placed through the needle centrally toward the atrial/vena caval junction. Fluoroscopy visualized good placement. The needle was removed and the guidewire was clipped to the drape with a hemostat. Further local anesthetic was infiltrated in the soft tissues of the right chest wall and a #15 blade was used to make a vertical skin incision. A #15 blade was used to make a small skin liana around the guidewire insertion area. The permacath tubing was tunneled through the subcutaneous tissues up to the needle insertion location. Serial dilators were used to serially dilate over the guidewire . A dilator with a peel-away sheath was placed over the guidewire and placed centrally. The guidewire was removed as well as the dilator and the permacath was fed into the split sheath. The split sheath was removed. Both ports were aspirated to reveal dark blood and were flushed with saline only as the patient has a heparin allergy. final fluoroscopy visualization showed no kink in the catheter and the tip of the permacath tubing near the atrial/vena caval junction. Both skin incisions were thoroughly irrigated and suctioned dry. Meticulous hemostasis noted. The internal jugular access site was closed with 4-0 Monocryl in a subcuticular fashion. The skin overlying the permacath was closed in a similar manner. The permacath was then sutured into place using 2-0 nylon in a simple interrupted fashion. skin glue was applied as a topical dressing. This was allowed to dry. Patient was awakened from anesthesia and transferred via her cart to the recovery room in stable condition. All needle, sponge, and instrument counts were correct per the operating personnel x2 counts.
--- NOTE | 2022-10-04 11:28 | XR_ITS ---
WS: [id number] Exam: XR chest 1V portable [id number] Date/Time of Exam: 10/04/2022 11:44 AM Reason For Exam: Postop Permacath Placement Comparison 09/29/2022. A right-sided double-lumen catheter has been placed and appears to extend into the right atrium. The heart is enlarged and there is pulmonary vascular congestion suggesting low-grade CHF. This may be du e to fluid overload. An ICD superimposes the left chest. The mediastinum is normal in contour. No pne umothorax or pleural effusion. XR/XR chest 1V portable [id number] IMPRESSION: 1. Right-sided double-lumen catheter appears to extend into the right atrium. 2. Cardiac enlargement with pulmonary vascular congestion suggesting low-grade CHF. Fluid overload might be considered.
--- NOTE | 2022-10-04 12:56 | PM.PN ---
Subjective Subjective: Patient received tunneled catheter today Dialysis today as well Signs of active fluid overload Plan for angiogram per cardiology [facility] outpatient Vitals/I&O/Wt Last Vital Signs Temp 98.0 F 10/04/22 12:27 Pulse 69 10/04/22 12:27 Resp 18 10/04/22 12:27 BP 122/71 10/04/22 12:27 Pulse Ox 92 10/04/22 12:27 O2 Del Method Nasal Cannula 10/04/22 12:27 O2 Flow Rate 3 10/04/22 12:27 FiO2 28 10/02/22 20:00 10/03/22 10/04/22 10/04/22 22:59 06:59 14:59 Intake Total 1139 / 1953.75 97.5 / 2051.25 467.75 / 467.75 Output Total 800 / 1285 1600 / 2885 Balance 339 / 668.75 -1502.5 / -833.75 467.75 / 467.75 Weight last 48 hrs Weight 132.358 kg Weight 133.47 kg Physical Exam Narrative: Status post tunneled catheter placement Fluid overload Congestive heart failure signs Currently on 3 L Abdomen soft S1, S2 Distended abdomen nontender Appears stated age No active distress Urinary Catheter Management: Douglas: Cath Placed During This Visit: yes Reason for Continuing Indwelling Catheter: Acute Urinary Retention or Obstruction Urinary Catheter Date of Insertion: 09/29/22 Urinary Catheter Time of Insertion: 15:00 Data 10/04/22 02:38 10/04/22 02:38 A&P Assessment and plan (1) NSTEMI (non-ST elevated myocardial infarction): (2) COPD (chronic obstructive pulmonary disease): (3) CKD (chronic kidney disease): (4) Fluid overload: (5) OSITO (obstructive sleep apnea): (6) Pulmonary vascular congestion: (7) Edema: Qualifiers: Edema type: unspecified Qualified Code(s): R60.9 - Edema, unspecified (8) Chronic venous insufficiency: (9) Osteoarthritis of left hip: (10) PAD (peripheral artery disease): (11) Peripheral neuropathy: Qualifiers: Peripheral neuropathy type: polyneuropathy, unspecified Qualified Code(s): G62.9 - Polyneuropathy, unspecified (12) Cardiomyopathy: (13) Status post cardiac pacemaker procedure: Plan Severely reduced EF, decompensated heart failure with reduced EF Nonischemic cardiomyopathy Patient has LifeVest Will need AICD outpatient Patient has a pacemaker) slow ventricular response with A-fib NSTEMI: Patient will go for a coronary angiogram reduced EF Systolic CHF exacerbation Status post tunnel catheter placement Assess volume status after dialysis Cardiorenal syndrome worsening his creatinine leading up to poor response to diuretics, status post tunnel catheter placement starting dialysis 10/04, tunneled catheter placed 10/04 as well Monitor for electrolyte imbalance and hemodialysis related complications A-fib: Eliquis on hold, was taking Coreg at home Congestive hepatopathy causing coagulopathy Patient received FFP before tunneled catheter placement Hypervolemic hyponatremia: Monitor sodium Full code Resume Eliquis after coronary angiogram Cardiac consistent carb diet with sliding scale Attestations Medical Necessity Statement*: Tomorrow angiogram Diagnoses NSTEMI (non-ST elevated myocardial infarction) I21.4 COPD (chronic obstructive pulmonary disease) J44.9 CKD (chronic kidney disease) N18.9 Fluid overload E87.70 OSITO (obstructive sleep apnea) G47.33 Pulmonary vascular congestion R09.89 Edema R60.9 Edema type: unspecified Chronic venous insufficiency I87.2 Osteoarthritis of left hip M16.12 PAD (peripheral artery disease) I73.9 Peripheral neuropathy G62.9 Peripheral neuropathy type: polyneuropathy, unspecified Cardiomyopathy I42.9 Status post cardiac pacemaker procedure Z95.0
--- NOTE | 2022-10-04 13:33 | PC.NURSE ---
return from or at 1245 via bed.report received.pt is drowsy.awakens to name.right upper chest with temporary dialysis cath in place.vss.
--- NOTE | 2022-10-04 13:51 | ANE.PACU2 ---
Inpatient post-anesthesia follow up: Airway intact: Yes Vital signs: Temperature 98.0 F Pulse Rate 69 Respiratory Rate 18 Blood Pressure 122/71 Pulse Oximetry 92 Oxygen Delivery Me thod Nasal Cannula Oxygen Flow Rate 3 Fraction of Inspir ed Oxygen 28 Hydration adequate: Yes Nausea and vomiting: Yes Pain level: 1 Mental status: Baseline
[2022-10-04 14:06] LABS: Glucose Point of Care 246 mg/dL (70-110)
--- NOTE | 2022-10-04 14:56 | PC.NURSE ---
dr sanon states pt may be dialyzed.pt to dialysis via bed at 1445.
[2022-10-04] MEDS: albumin 12.5 GM/50 ML VIAL IV (16:15)
[2022-10-04] MEDS: tamsulosin 0.4 mg Capsule PO (17:36)
[2022-10-04] MEDS: insulin lispro 100 unit/1 mL SUBCUT (17:42)
--- NOTE | 2022-10-04 17:43 | PC.NURSE ---
blood sugar per pt's monitoring device is 206.6 units humalog insulin given per s/s.
--- NOTE | 2022-10-04 18:40 | PC.HD ---
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 When treatment started pt became hypotensive, 89/62 and asymptomatic. UF off, machine temp to 35.0 C, and BP up to 103/71. BP did not rebound further and albumin 50gm given per orders. BP recovered enough to turn UF on at reduced rate and 0.5kg was removed, BP 101/76 post treatment. Pt remained asymptomatic, tolerated initial treatment fairly.
--- NOTE | 2022-10-04 20:16 | PC.NURSE ---
Blood glucose was 253 per patients dexcom.
[2022-10-04] MEDS: NON-FORMULARY MEDICATION (Pentoxifylline 400 mg tablet extended release) 400 EACH PO (21:11)
[2022-10-05] VITALS (28 sets, daily range): BP systolic 82–121; BP diastolic 53–81; PULSE 60–70; RESP 16–30; TEMP 35.6–36.3; O2SAT 83–98; BMI 38.9
[2022-10-05] MEDS: lactulose oral liq 20 gm/30 mL UDC PO ×2 (01:04→16:13)
[2022-10-05 04:55] LABS: Basophils # 0.1 10^3/uL (0.0-0.1); Basophils % 0.8 %; Eosinophils # 0.2 10^3/uL (0.0-0.8); Eosinophils % 2.3 %; Hematocrit 36.7 % (42.0-52.0); Hemoglobin 11.8 g/dL (11.7-16.6); Lymphocytes # 0.9 10^3/uL (0.8-4.8); Lymphocytes % 11.9 %; Mean Corpuscular HGB Conc 32.2 g/dL (30.0-36.0); Mean Corpuscular Hemoglobin 27.4 pg (28.0-34.0); Mean Corpuscular Volume 85.3 fl (80-94); Mean Platelet Volume 11.2 fL (7.4-10.4); Monocytes % 12.8 %; Neutrophils # 5.36 10^3/uL (1.8-7.7); Neutrophils % 71.7 %; Nucleated Red Blood Cells % 0 %; Platelet Count 233 10^3/cmm (130-400); Red Cell Distribution Width 16.6 % (12.1-15.1); White Blood Count 7.5 10^3/uL (4.0-10.0)
[2022-10-05 05:22] LABS: Alanine Aminotransferase 10 U/L (0-41); Albumin Level 3.8 g/dL (3.5-5.2); Alkaline Phosphatase 193 U/L (40-130); Anion Gap 17.3 (5-19); Aspartate Amino Transferase 26 U/L (0-40); Carbon Dioxide 33 mmol/L (22-29); Chloride 88 mmol/L (98-107); Globulin 3.7 g/dL (1.3-4.6); Glucose 239 mg/dL (65-115); Osmolality Calculated 314 mOsm/kg (285-295); Potassium 3.3 mmol/L (3.5-5.1); Sodium 135 mmol/L (136-145); Total Protein 7.5 g/dL (6.6-8.7)
[2022-10-05 05:24] LABS: Blood Urea Nitrogen 85 mg/dL (8-23)
[2022-10-05] MEDS: levothyroxine 100 mcg Tablet PO (05:53)
--- NOTE | 2022-10-05 07:35 | PM.PN ---
Subjective Subjective: Patient has been started on dialysis. BUN has improved. Denies chest pain. Vitals/I&O/Wt Last Vital Signs Temp 96.8 F L 10/04/22 18:35 Pulse 66 10/05/22 04:00 Resp 25 H 10/05/22 04:00 BP 112/63 10/05/22 04:00 Pulse Ox 95 10/05/22 04:00 O2 Del Method Nasal Cannula 10/04/22 21:55 O2 Flow Rate 2 10/04/22 21:55 FiO2 28 10/02/22 20:00 10/04/22 10/05/22 10/05/22 22:59 06:59 14:59 Intake Total 840 / 1307.75 Output Total 730 / 730 975 / 1705 Balance 110 / 577.75 -975 / -397.25 Weight last 48 hrs Weight 287 lb 8 oz Weight 308 lb 6.827 oz Weight 291 lb 12.8 oz Physical Exam Narrative: GENERAL: Patient is drowsy NECK: No jugular vein distension. [] HEENT: No cyanosis. No icterus. No pallor. [] HEART: Regular S1 and S2. No murmur, rub or gallop. [] LUNGS: Clear to auscultate bilaterally. [] CENTRAL NERVOUS SYSTEM: Grossly nonfocal. [] EXTREMITIES: Lower extremities with 1+ edema bilaterally. Urinary Catheter Management: Douglas: Cath Placed During This Visit: yes Reason for Continuing Indwelling Catheter: Accurate Measurement of Urinary Output in Critically Ill Patients Urinary Catheter Date of Insertion: 09/29/22 Urinary Catheter Time of Insertion: 15:00 Data 10/06/22 01:15 10/06/22 01:15 A&P Assessment and plan (1) CHF (congestive heart failure): (2) Acute on chronic diastolic (congestive) heart failure: (3) BRAIN (acute kidney injury): (4) CKD (chronic kidney disease): (5) COPD (chronic obstructive pulmonary disease): (6) OSITO (obstructive sleep apnea): Plan Patient is stable. Continue dialysis. Had a discussion with family regarding different options. They want to think about. Medical therapy versus cardiac catheterization both options available Thank you for involving us with care of this patient. We will continue to follow. Please call with questions. Attestations Medical Necessity Statement*: Care expected to cross 2 midnights. Coding Level of Care Code Acute Code for Chg Fwd Diagnoses CHF (congestive heart failure) I50.9 Acute on chronic diastolic (congestive) heart failure I50.33 BRAIN (acute kidney injury) N17.9 CKD (chronic kidney disease) N18.9 COPD (chronic obstructive pulmonary disease) J44.9 OSITO (obstructive sleep apnea) G47.33
[2022-10-05 08:35] LABS: Ammonia 60 umol/L (16-60)
[2022-10-05 09:16] LABS: ABG PCO2 37.5 mmHg (35-45); ABG PH Result 7.52 (7.35-7.45); Arterial Blood Gas Hematocrit 37.3 % (42-52); Base Excess ABG 6.9 mmol/L (-2.0-2.0); Blood Gas Allen Test Pos; Blood Gas Operator Identificat WALCI; Blood Gas Sample Site Radial, left; Blood Gas Sample Type Arterial; Carboxyhemoglobin 1.4 %THgb (0.4-20.1); HCO3 ABG 30.2 mmol/L (22-26); HGB O2 Sat 95.6 % (95-100); Ionized Calcium Level - ABG 1.1 mmol/L (1.1-1.4); Methemoglobin 0.4 % (0.4-1.5); Oxygen Device NC; Oxygen Saturation ABG 97.4; Potassium Level - ABG 3.4 mmol/L (3.5-5.0); Total Hemoglobin 12.2 g/dL (14-18)
[2022-10-05] MEDS: atorvastatin 40 mg Tablet 20 MG PO (09:23)
[2022-10-05] MEDS: pantoprazole DR 40 mg Tablet PO ×2 (09:24→17:10)
[2022-10-05] MEDS: cyclobenzaprine 10 mg Tablet 5 MG PO (09:24)
[2022-10-05] MEDS: gabapentin 300 mg Capsule PO ×2 (09:24→17:10)
[2022-10-05] MEDS: oxyCODONE-APAP 10-325 mg Tablet 1 TAB PO ×2 (09:24→17:09)
[2022-10-05] MEDS: nystatin powder 15 gm Btl 1 APPLIC TOPICAL ×2 (09:27→17:14)
--- NOTE | 2022-10-05 10:47 | P.PN_ITS ---
Subjective Subjective: no new complaints Medications: Reviewed: Yes Vitals/I&O/Wt Last Vital Signs Temp 97.3 F L 10/05/22 08:26 Pulse 64 10/05/22 08:00 Resp 30 H 10/05/22 09:24 BP 121/80 10/05/22 08:00 Pulse Ox 92 10/05/22 09:24 O2 Del Method Nasal Cannula 10/05/22 08:00 O2 Flow Rate 2 10/05/22 07:40 FiO2 28 10/02/22 20:00 10/04/22 10/05/22 10/05/22 22:59 06:59 14:59 Intake Total 840 / 1307.75 Output Total 730 / 730 975 / 1705 Balance 110 / 577.75 -975 / -397.25 Weight last 48 hrs Weight 130.408 kg Weight 139.9 kg Weight 132.358 kg Physical Exam Const: COMMON NORMALS: no acute distress and alert Extremity: NARRATIVE EXTREMITY EXAM: anasarca Neuro: SENSORIUM/ORIENTATION: Yes alert Urinary Catheter Management: Douglas: Cath Placed During This Visit: yes Reason for Continuing Indwelling Catheter: Accurate Measurement of Urinary Out put in Critically Ill Patients Urinary Catheter Date of Insertion: 09/29/22 Urinary Catheter Time of Insertion: 15:00 Data 10/05/22 04:28 10/05/22 04:28 A&P Assessment and plan (1) Fluid overload: (2) BRAIN (acute kidney injury): Plan 1. Acute kidney injury, cardiorenal due to low cardiac output, biventricular heart failure, severe MR, possible underlying cirrhosis, possible hepatorenal as well. Urine output improved on lasix infusion, but is only 500 ml neg since admission. Renal function worse. 2. Volume overload 3. Hypokalemia, metabolic alkalosis 4. Hypervolemic hyponatremia, stable 5. Coagulopathy, improved Rec: I had a detailed discussion with Refugio. Recommended initiation of HD. Discussed insertion of dialysis catheter, dialysis procedure, risks and benef its. He is agreeable. s/p placement of tunneled HD catheter and HD started , HD # 2 Today Attestations Medical Necessity Statement*: per medicine Coding Level of Care Code Acute Code for Chg Fwd Diagnoses Fluid overload E87.70 BRAIN (acute kidney injury) N17.9
--- NOTE | 2022-10-05 10:59 | PM.PN ---
Subjective Subjective: Plan to continue hemodialysis Angiogram is on hold Patient is fluid overloaded Lethargic and fatigued I encouraged him to discuss his goals of care again with the family patient is well aware of his multiple comorbid conditions and ejection fraction of 20% ABG this morning is showing metabolic alkalosis Vitals/I&O/Wt Last Vital Signs Temp 97.3 F L 10/05/22 08:26 Pulse 64 10/05/22 08:00 Resp 30 H 10/05/22 09:24 BP 121/80 10/05/22 08:00 Pulse Ox 92 10/05/22 09:24 O2 Del Method Nasal Cannula 10/05/22 08:00 O2 Flow Rate 2 10/05/22 07:40 FiO2 28 10/02/22 20:00 10/04/22 10/05/22 10/05/22 22:59 06:59 14:59 Intake Total 840 / 1307.75 Output Total 730 / 730 975 / 1705 Balance 110 / 577.75 -975 / -397.25 Weight last 48 hrs Weight 130.408 kg Weight 139.9 kg Weight 132.358 kg Physical Exam Narrative: Anasarca Fatigued and lethargic Hemodynamically stable Currently on nasal cannula Abdomen distended nontender S1, S2 paced rhythm Able to follow commands GCS 15 Nonfocal neuro exam Urinary Catheter Management: Douglas: Cath Placed During This Visit: yes Reason for Continuing Indwelling Catheter: Accurate Measurement of Urinary Output in Critically Ill Patients Urinary Catheter Date of Insertion: 09/29/22 Urinary Catheter Time of Insertion: 15:00 Data 10/05/22 04:28 10/05/22 04:28 A&P Assessment and plan (1) NSTEMI (non-ST elevated myocardial infarction): (2) COPD (chronic obstructive pulmonary disease): (3) CKD (chronic kidney disease): (4) Fluid overload: (5) Peripheral neuropathy: Qualifiers: Peripheral neuropathy type: polyneuropathy, unspecified Qualified Code(s): G62.9 - Polyneuropathy, unspecified (6) Osteoarthritis: (7) Nonischemic cardiomyopathy: (8) Chronic atrial fibrillation: (9) Peripheral arterial disease: (10) Acute kidney injury superimposed on chronic kidney disease: Plan Acute systolic CHF exacerbation Continue dialysis Diuretics on hold contraction alkalosis has not worsened Acute on chronic renal disease cardiorenal syndrome Status post tunnel catheter placement Second session today Potassium 3.3 Creatinine 2.1 Patient is fatigued and lethargic secondary to multiple comorbid conditions NSTEMI: EF of 20% patient will need AICD outpatient Currently has a pacemaker, history of A-fib Eliquis on hold Nonischemic cardiomyopathy Patient will need coronary angiogram for reduction in EF once we get clearance from nephrology Liver cirrhosis/ Ammonia level detected, continue lactulose Positive asterixis related to acute renal failure Continue dialysis Patient is full code, I encourage patient to rediscuss goals of care with the family Renal dialysis diet Hypervolemia hyponatremia: Improving Guarded prognosis Attestations Medical Necessity Statement*: Continue medical therapy Diagnoses NSTEMI (non-ST elevated myocardial infarction) I21.4 COPD (chronic obstructive pulmonary disease) J44.9 CKD (chronic kidney disease) N18.9 Fluid overload E87.70 Peripheral neuropathy G62.9 Peripheral neuropathy type: polyneuropathy, unspecified Osteoarthritis M19.90 Nonischemic cardiomyopathy I42.8 Chronic atrial fibrillation I48.20 Peripheral arterial disease I73.9 Acute kidney injury superimposed on chronic kidney disease N17.9; N18.9
--- NOTE | 2022-10-05 11:16 | PC.NURSE ---
off unit for his Hemodialysis held BP meds for now for pt hemodynamic sttus during dialysis
--- NOTE | 2022-10-05 12:33 | PM.PN ---
Subjective Subjective: Patient seen and examined. No issues with dialysis through permacath Vitals/I&O/Wt Last Vital Signs Temp 96.4 F L 10/05/22 16:04 Pulse 81 10/06/22 08:00 Resp 22 H 10/06/22 08:54 BP 99/71 10/05/22 16:04 Pulse Ox 96 10/06/22 08:54 O2 Del Method Nasal Cannula 10/06/22 08:00 O2 Flow Rate 2 10/06/22 08:00 FiO2 28 10/02/22 20:00 10/05/22 10/06/22 10/06/22 22:59 06:59 14:59 Intake Total 1820 / 1820 360 / 360 Output Total 1815 / 1815 Balance 5 360 / 360 Weight last 48 hrs Weight 296 lb 0.1 oz Weight 286 lb 13.142 oz Weight 287 lb 8 oz Weight 308 lb 6.827 oz Physical Exam Narrative: General: No acute distress Skin: Some ecchymosis over internal jugular insertion site, no erythema or exudate Abdomen soft nontender nondistended Urinary Catheter Management: Douglas: Cath Placed During This Visit: yes Reason for Continuing Indwelling Catheter: Other Urinary Catheter Date of Insertion: 09/29/22 Urinary Catheter Time of Insertion: 15:00 Data 10/06/22 01:15 10/06/22 01:15 A&P Assessment and plan (1) Acute kidney injury superimposed on chronic kidney disease: Plan Status post permacath placement Medical management per hospitalist General surgery will sign off. Please reconsult if the need arises. Attestations Medical Necessity Statement*: Per primary Coding Level of Care Code Acute Code for [facility] Fwd Diagnoses Acute kidney injury superimposed on chronic kidney disease N17.9; N18.9
[2022-10-05] MEDS: albumin 12.5 GM/50 ML VIAL IV (14:49)
[2022-10-05] MEDS: heparin, porcine 1,000 unit/mL INJ 10 mL 10000 UNIT INTRACATH (14:49)
[2022-10-05] MEDS: heparin, porcine 1,000 unit/mL INJ 10 mL 1000 UNIT IV (16:07)
[2022-10-05] MEDS: GUAIFENESIN 400 MG 400 EACH PO (16:14)
[2022-10-05] MEDS: NON-FORMULARY MEDICATION (Pentoxifylline 400 mg tablet extended release) 400 EACH PO (16:15)
[2022-10-05] MEDS: tamsulosin 0.4 mg Capsule PO (17:10)
[2022-10-05] MEDS: insulin lispro 100 unit/1 mL SUBCUT (17:14)
[2022-10-05 17:15] LABS: Glucose Point of Care 246 mg/dL (70-110)
[2022-10-05] MEDS: HYDROmorphone 1 mg/mL INJ 1 mL 0.5 MG IVP ×2 (20:48→23:34)
[2022-10-05] MEDS: heparin 5,000 unit/mL INJ 1 mL 5000 UNIT SUBCUT (23:33)
[2022-10-06] VITALS (28 sets, daily range): BP systolic 90–125; BP diastolic 52–78; PULSE 60–81; RESP 13–31; TEMP 36–36.9; O2SAT 89–97
[2022-10-06 01:40] LABS: Basophils % 0.5 %; Eosinophils # 0.2 10^3/uL (0.0-0.8); Eosinophils % 1.9 %; Hematocrit 35.5 % (42.0-52.0); Hemoglobin 11.2 g/dL (11.7-16.6); Lymphocytes # 0.7 10^3/uL (0.8-4.8); Lymphocytes % 8.8 %; Mean Corpuscular HGB Conc 31.5 g/dL (30.0-36.0); Mean Corpuscular Hemoglobin 27.2 pg (28.0-34.0); Mean Corpuscular Volume 86.2 fl (80-94); Mean Platelet Volume 11.3 fL (7.4-10.4); Monocytes # 1.1 10^3/uL (0.2-0.9); Neutrophils # 6.21 10^3/uL (1.8-7.7); Neutrophils % 75.3 %; Nucleated Red Blood Cells % 0 %; Platelet Count 227 10^3/cmm (130-400); Red Blood Count 4.12 10^6/uL (4.1-5.3); Red Cell Distribution Width 16.7 % (12.1-15.1); White Blood Count 8.3 10^3/uL (4.0-10.0)
[2022-10-06 01:57] LABS: Anion Gap 14.6 (5-19); Blood Urea Nitrogen 65 mg/dL (8-23); Calcium 8.7 mg/dL (8.5-10.5); Carbon Dioxide 32 mmol/L (22-29); Chloride 89 mmol/L (98-107); Glucose 256 mg/dL (65-115); Osmolality Calculated 301 mOsm/kg (285-295); Potassium 3.6 mmol/L (3.5-5.1); Sodium 132 mmol/L (136-145)
[2022-10-06 07:53] LABS: Glucose Point of Care 294 mg/dL (70-110)
[2022-10-06] MEDS: gabapentin 300 mg Capsule PO (08:54)
[2022-10-06] MEDS: oxyCODONE-APAP 10-325 mg Tablet 1 TAB PO ×2 (08:54→15:25)
[2022-10-06] MEDS: cyclobenzaprine 10 mg Tablet 5 MG PO ×2 (08:55→15:24)
[2022-10-06] MEDS: atorvastatin 40 mg Tablet 20 MG PO (08:55)
[2022-10-06] MEDS: pantoprazole DR 40 mg Tablet PO (08:55)
[2022-10-06] MEDS: insulin lispro 100 unit/1 mL SUBCUT (08:56)
--- NOTE | 2022-10-06 09:55 | PC.SOCIAL ---
IMM Updated Updated pt & pt's on IMM. No questions voiced. Provided pt a copy. Initialed, dated, & timed copy in chart.
--- NOTE | 2022-10-06 12:07 | PM.PN ---
Subjective Subjective: Patient is feeling the same. Denies chest pain. BUN has improved on dialysis. Vitals/I&O/Wt Last Vital Signs Temp 96.4 F L 10/05/22 16:04 Pulse 81 10/06/22 08:00 Resp 22 H 10/06/22 08:54 BP 99/71 10/05/22 16:04 Pulse Ox 96 10/06/22 08:54 O2 Del Method Nasal Cannula 10/06/22 08:00 O2 Flow Rate 2 10/06/22 08:00 FiO2 28 10/02/22 20:00 10/05/22 10/06/22 10/06/22 22:59 06:59 14:59 Intake Total 1820 / 1820 360 / 360 Output Total 1815 / 1815 Balance 5 / 5 360 / 360 Weight last 48 hrs Weight 296 lb 0.1 oz Weight 286 lb 13.142 oz Weight 287 lb 8 oz Weight 308 lb 6.827 oz Physical Exam Narrative: GENERAL: Patient is drowsy NECK: No jugular vein distension. [] HEENT: No cyanosis. No icterus. No pallor. [] HEART: Regular S1 and S2. No murmur, rub or gallop. [] LUNGS: Clear to auscultate bilaterally. [] CENTRAL NERVOUS SYSTEM: Grossly nonfocal. [] EXTREMITIES: Lower extremities with 1+ edema bilaterally. Urinary Catheter Management: Douglas: Cath Placed During This Visit: yes Reason for Continuing Indwelling Catheter: Other Urinary Catheter Date of Insertion: 09/29/22 Urinary Catheter Time of Insertion: 15:00 Data 10/06/22 01:15 10/07/22 05:39 A&P Assessment and plan (1) CHF (congestive heart failure): (2) Acute on chronic diastolic (congestive) heart failure: (3) BRAIN (acute kidney injury): (4) CKD (chronic kidney disease): (5) COPD (chronic obstructive pulmonary disease): (6) OSITO (obstructive sleep apnea): Plan Discussed with patient and family all options. Decision made to proceed with medical therapy at this time as he is not having active MD or chest pains. As outpatient, if he improves and decides to proceed with aggressive measures, we can perform coronary angiogram. Thank you for involving us with care of this patient. We will continue to follow. Please call with questions. Attestations Medical Necessity Statement*: Care expected to cross 2 midnights. Coding Level of Care Code Acute Code for Chg Fwd Diagnoses CHF (congestive heart failure) I50.9 Acute on chronic diastolic (congestive) heart failure I50.33 BRAIN (acute kidney injury) N17.9 CKD (chronic kidney disease) N18.9 COPD (chronic obstructive pulmonary disease) J44.9 OSITO (obstructive sleep apnea) G47.33
[2022-10-06] MEDS: heparin, porcine 1,000 unit/mL INJ 10 mL 1000 UNIT IV (13:47)
--- NOTE | 2022-10-06 14:14 | P.PN_ITS ---
Subjective Subjective: This morning patient was getting dialyzed Continue lethargic Had a long discussion with the family, they have elected we discussed with the patient regarding goals of care, for now he is full code, they might lean towards safe placement and palliative care, they will decide and let us know by tomorrow As per the social security benefits interviewer patient has been accepted outpatient for Tuesday dialysis does not want to take him home because she cannot help, on daily basis Vitals/I&O/Wt Last Vital Signs Temp 96.4 F L 10/05/22 16:04 Pulse 81 10/06/22 08:00 Resp 22 H 10/06/22 08:54 BP 99/71 10/05/22 16:04 Pulse Ox 96 10/06/22 08:54 O2 Del Method Nasal Cannula 10/06/22 08:00 O2 Flow Rate 2 10/06/22 08:00 FiO2 28 10/02/22 20:00 10/05/22 10/06/22 10/06/22 22:59 06:59 14:59 Intake Total 1820 / 1820 360 / 360 Output Total 1815 / 1815 Balance 5 / 5 360 / 360 Weight last 48 hrs Weight 134.266 kg Weight 130.1 kg Weight 130.408 kg Weight 139.9 kg Physical Exam Narrative: Patient was seen twice today Getting dialyzed Treatment lethargic Tunnel catheter placed hyperemic without any purulent drainage Abdomen distended GCS 15 patient is able to follow commands Nonfocal neuro exam Fatigued lethargic Able to understand questions Urinary Catheter Management: Douglas: Cath Placed During This Visit: yes Reason for Continuing Indwelling Catheter: Other Urinary Catheter Date of Insertion: 09/29/22 Urinary Catheter Time of Insertion: 15:00 Data 10/06/22 01:15 10/06/22 01:15 A&P Assessment and plan (1) Acute kidney injury superimposed on chronic kidney disease: (2) NSTEMI (non-ST elevated myocardial infarction): (3) COPD (chronic obstructive pulmonary disease): (4) CKD (chronic kidney disease): (5) Fluid overload: (6) PAD (peripheral artery disease): (7) Peripheral neuropathy: Qualifiers: Peripheral neuropathy type: polyneuropathy, unspecified Qualified Code(s): G62.9 - Polyneuropathy, unspecified (8) Cardiomyopathy: (9) Status post cardiac pacemaker procedure: (10) Diabetic peripheral neuropathy associated with type 2 diabetes mellitus: (11) Chronic atrial fibrillation: (12) OSITO (obstructive sleep apnea): Plan Fluid overload Acute on chronic kidney disease leading towards end-stage renal disease Patient is not dialysis dependent Anasarca Related to liver failure, heart failure and renal failure Fatigued and lethargic Asterixis positive Poor quality of life Patient was seen twice Multiple family meetings Family instructed palliative care Let us know about final decision by tomorrow Patient has chair time outpatient Cardiology has recommended medical management no plan for angiogram as of now Patient has a LifeVest Hypervolemic hyponatremia: Sodium improved Patient require a lot of assistance for ambulation We will need long term Attestations Medical Necessity Statement*: Continue medical management Diagnoses Acute kidney injury superimposed on chronic kidney disease N17.9; N18.9 NSTEMI (non-ST elevated myocardial infarction) I21.4 COPD (chronic obstructive pulmonary disease) J44.9 CKD (chronic kidney disease) N18.9 Fluid overload E87.70 PAD (peripheral artery disease) I73.9 Peripheral neuropathy G62.9 Peripheral neuropathy type: polyneuropathy, unspecified Cardiomyopathy I42.9 Status post cardiac pacemaker procedure Z95.0 Diabetic peripheral neuropathy associated with type 2 diabetes mellitus E11.42 Chronic atrial fibrillation I48.20 OSITO (obstructive sleep apnea) G47.33
[2022-10-06] MEDS: lactulose oral liq 20 gm/30 mL UDC PO (15:26)
--- NOTE | 2022-10-06 17:17 | PM.PN ---
Subjective Subjective: no new complaints Medications: Reviewed: Yes Vitals/I&O/Wt Last Vital Signs Temp 97.1 F L 10/06/22 15:15 Pulse 71 10/06/22 15:00 Resp 18 10/06/22 15:25 BP 105/61 10/06/22 15:00 Pulse Ox 94 10/06/22 15:25 O2 Del Method Nasal Cannula 10/06/22 15:00 O2 Flow Rate 2 10/06/22 08:00 FiO2 28 10/02/22 20:00 10/06/22 10/06/22 10/06/22 06:59 14:59 22:59 Intake Total 360 / 360 Balance 360 / 360 Weight last 48 hrs Weight 134.266 kg Weight 130.1 kg Weight 130.408 kg Weight 139.9 kg Physical Exam Const: COMMON NORMALS: no acute distress and alert Extremity: NARRATIVE EXTREMITY EXAM: anasarca Neuro: SENSORIUM/ORIENTATION: Yes alert Urinary Catheter Management: Douglas: Cath Placed During This Visit: yes Reason for Continuing Indwelling Catheter: Other Urinary Catheter Date of Insertion: 09/29/22 Urinary Catheter Time of Insertion: 15:00 Data 10/06/22 01:15 10/06/22 01:15 A&P Assessment and plan (1) Fluid overload: (2) BRAIN (acute kidney injury): Plan 1. Acute kidney injury, cardiorenal due to low cardiac output, biventricular heart failure, severe MR, possible underlying cirrhosis, possible hepatorenal as well. Urine output improved on lasix infusion, but is only 500 ml neg since admission. Renal function worse. 2. Volume overload 3. Hypokalemia, metabolic alkalosis 4. Hypervolemic hyponatremia, stable 5. Coagulopathy, improved Rec: I had a detailed discussion with Refugio. Recommended initiation of HD. Discussed insertion of dialysis catheter, dialysis procedure, risks and benefits. He is agreeable. s/p placement of tunneled HD catheter and HD started , HD # 3 Today Can DC once out pt hD chait arranged Attestations Medical Necessity Statement*: per medicine Coding Level of Care Code Acute Code for Chg Fwd Diagnoses Fluid overload E87.70 BRAIN (acute kidney injury) N17.9
[2022-10-06 20:57] LABS: Glucose Point of Care 231 mg/dL (70-110)
[2022-10-06] MEDS: nystatin powder 15 gm Btl 1 APPLIC TOPICAL (21:29)
[2022-10-06] MEDS: HYDROmorphone 1 mg/mL INJ 1 mL 0.5 MG IVP (22:36)
[2022-10-06] MEDS: heparin 5,000 unit/mL INJ 1 mL 5000 UNIT SUBCUT (22:37)
[2022-10-07] VITALS (30 sets, daily range): BP systolic 95–122; BP diastolic 51–79; PULSE 60–81; RESP 14–35; TEMP 36.9–37.4; O2SAT 85–97
[2022-10-07 06:25] LABS: Anion Gap 20.1 (5-19); Blood Urea Nitrogen 57 mg/dL (8-23); Calcium 9.1 mg/dL (8.5-10.5); Carbon Dioxide 26 mmol/L (22-29); Chloride 92 mmol/L (98-107); Glucose 209 mg/dL (65-115); Osmolality Calculated 300 mOsm/kg (285-295); Potassium 4.1 mmol/L (3.5-5.1); Sodium 134 mmol/L (136-145)
[2022-10-07 06:28] LABS: Glucose Point of Care 220 mg/dL (70-110)
[2022-10-07] MEDS: atorvastatin 40 mg Tablet 20 MG PO (08:01)
[2022-10-07] MEDS: oxyCODONE-APAP 10-325 mg Tablet 1 TAB PO ×2 (08:02→14:49)
[2022-10-07] MEDS: cyclobenzaprine 10 mg Tablet 5 MG PO ×2 (08:02→14:49)
[2022-10-07] MEDS: insulin lispro 100 unit/1 mL SUBCUT ×2 (08:02→13:22)
[2022-10-07] MEDS: pantoprazole DR 40 mg Tablet PO (08:02)
[2022-10-07] MEDS: gabapentin 300 mg Capsule PO (08:02)
[2022-10-07] MEDS: apixaban 5 mg Tablet PO ×2 (08:02→21:17)
[2022-10-07] MEDS: levothyroxine 100 mcg Tablet PO (08:08)
[2022-10-07] MEDS: nystatin powder 15 gm Btl 1 APPLIC TOPICAL (08:16)
--- NOTE | 2022-10-07 08:48 | P.PN_ITS ---
Subjective Subjective: Patient is agreeable for long term placement Patient would like to discuss further with his family about goals of care Minimal urine output Due to excessive dryness he is not able to swallow I will give him ice chips I do not see any sign of aspiration No bedsores Vitals/I&O/Wt Last Vital Signs Temp 98.5 F 10/07/22 08:00 Pulse 72 10/07/22 08:00 Resp 20 H 10/07/22 08:02 BP 118/63 10/07/22 08:00 Pulse Ox 95 10/07/22 08:02 O2 Del Method Nasal Cannula 10/07/22 08:00 O2 Flow Rate 2 10/07/22 08:00 FiO2 28 10/02/22 20:00 10/06/22 10/07/22 10/07/22 22:59 06:59 14:59 Intake Total 650 / 1010 100 / 1110 Output Total 2892 / 2892 100 / 2992 Balance -2242 / -1882 0 / -1882 Weight last 48 hrs Weight 131.451 kg Weight 131.6 kg Weight 134.266 kg Weight 130.1 kg Physical Exam Narrative: Patient is arousable Able to answer questions appropriately Fatigued and drowsy Abdomen distended nontender Tunneled catheter area hyperemia noted without any discharge Paced rhythm Currently on 2 L Lower extremity venous stasis dermatitis Left calf area with mild skin sloughing no active ulcers No sacral ulcers Urinary Catheter Management: Douglas: Cath Placed During This Visit: yes Reason for Continuing Indwelling Catheter: Accurate Measurement of Urinary Output in Critically Ill Patients Urinary Catheter Date of Insertion: 09/29/22 Urinary Catheter Time of Insertion: 15:00 Data 10/06/22 01:15 10/07/22 05:39 A&P Assessment and plan (1) ESRD (end stage renal disease): (2) NSTEMI (non-ST elevated myocardial infarction): (3) COPD (chronic obstructive pulmonary disease): (4) Fluid overload: (5) OSITO (obstructive sleep apnea): (6) Pulmonary vascular congestion: (7) Edema: Qualifiers: Edema type: unspecified Qualified Code(s): R60.9 - Edema, unspecified (8) Peripheral neuropathy: Qualifiers: Peripheral neuropathy type: polyneuropathy, unspecified Qualified Code(s): G62.9 - Polyneuropathy, unspecified (9) PAD (peripheral artery disease): (10) Venous ulcer of left leg: (11) Venous insufficiency: (12) Diabetic peripheral neuropathy associated with type 2 diabetes mellitus: (13) Chronic atrial fibrillation: Plan end Stage renal disease Tuesday chair time has been approved Tunnel catheter area is hyperemic I do not see any sign of discharge Excessive dryness is making it difficult to swallow, requested speech therapy, for now continue renal dialysis diet Reduced ejection fraction heart failure exacerbation Volume overload improving with dialysis Patient will need an AICD outpatient Patient has a LifeVest A-fib without RVR status post pacemaker, continue Eliquis Full code Hepatic congestive hepatopathy Patient has positive asterixis Pneumonia level is not high Quality of life is very poor at this point, family is leaning towards long term placement, will rediscuss whether they had opted for palliative care at this point Sodium improved with dialysis which was related to hypervolemia Attestations Medical Necessity Statement*: prison placement Diagnoses ESRD (end stage renal disease) N18.6 NSTEMI (non-ST elevated myocardial infarction) I21.4 COPD (chronic obstructive pulmonary disease) J44.9 Fluid overload E87.70 OSITO (obstructive sleep apnea) G47.33 Pulmonary vascular congestion R09.89 Edema R60.9 Edema type: unspecified Peripheral neuropathy G62.9 Peripheral neuropathy type: polyneuropathy, unspecified PAD (peripheral artery disease) I73.9 Venous ulcer of left leg I83.029; L97.929 Venous insufficiency I87.2 Diabetic peripheral neuropathy associated with type 2 diabetes mellitus E11.42 Chronic atrial fibrillation I48.20
--- NOTE | 2022-10-07 09:44 | PM.PN ---
Subjective Subjective: Patient's condition is unchanged. Denies chest pain. Vitals/I&O/Wt Last Vital Signs Temp 98.5 F 10/07/22 08:00 Pulse 72 10/07/22 08:00 Resp 20 H 10/07/22 08:02 BP 118/63 10/07/22 08:00 Pulse Ox 95 10/07/22 08:02 O2 Del Method Nasal Cannula 10/07/22 08:00 O2 Flow Rate 2 10/07/22 08:00 FiO2 28 10/02/22 20:00 10/06/22 10/07/22 10/07/22 22:59 06:59 14:59 Intake Total 650 / 1010 100 / 1110 Output Total 2892 / 2892 100 / 2992 Balance -2242 / -1882 0 / -1882 Weight last 48 hrs Weight 289 lb 12.8 oz Weight 290 lb 2.053 oz Weight 296 lb 0.1 oz Weight 286 lb 13.142 oz Physical Exam Narrative: GENERAL: Patient is drowsy NECK: No jugular vein distension. [] HEENT: No cyanosis. No icterus. No pallor. [] HEART: Regular S1 and S2. No murmur, rub or gallop. [] LUNGS: Clear to auscultate bilaterally. [] CENTRAL NERVOUS SYSTEM: Grossly nonfocal. [] EXTREMITIES: Lower extremities with 1+ edema bilaterally. Urinary Catheter Management: Douglas: Cath Placed During This Visit: yes Reason for Continuing Indwelling Catheter: Accurate Measurement of Urinary Output in Critically Ill Patients Urinary Catheter Date of Insertion: 09/29/22 Urinary Catheter Time of Insertion: 15:00 Data 10/11/22 10:16 10/09/22 03:12 A&P Assessment and plan (1) CHF (congestive heart failure): (2) Acute on chronic diastolic (congestive) heart failure: (3) BRAIN (acute kidney injury): (4) CKD (chronic kidney disease): (5) COPD (chronic obstructive pulmonary disease): (6) OSITO (obstructive sleep apnea): Plan Decision was made to perform medical therapy. Patient stable from cardiology standpoint Thank you for involving us with care of this patient. We will sign off. Please call with questions. Attestations Medical Necessity Statement*: Care expected to cross 2 midnights. Coding Level of Care Code Acute Code for g Fwd Diagnoses CHF (congestive heart failure) I50.9 Acute on chronic diastolic (congestive) heart failure I50.33 BRAIN (acute kidney injury) N17.9 CKD (chronic kidney disease) N18.9 COPD (chronic obstructive pulmonary disease) J44.9 OSITO (obstructive sleep apnea) G47.33
--- NOTE | 2022-10-07 11:13 | PM.PN ---
Subjective Subjective: difficulty swallowing Medications: Reviewed: Yes Vitals/I&O/Wt Last Vital Signs Temp 98.5 F 10/07/22 08:00 Pulse 72 10/07/22 08:00 Resp 20 H 10/07/22 08:02 BP 118/63 10/07/22 08:00 Pulse Ox 95 10/07/22 08:02 O2 Del Method Nasal Cannula 10/07/22 08:00 O2 Flow Rate 2 10/07/22 08:00 FiO2 28 10/02/22 20:00 10/06/22 10/07/22 10/07/22 22:59 06:59 14:59 Intake Total 650 / 1010 100 / 1110 Output Total 2892 / 2892 100 / 2992 Balance -2242 / -1882 0 / -1882 Weight last 48 hrs Weight 131.451 kg Weight 131.6 kg Weight 134.266 kg Weight 130.1 kg Physical Exam Narrative: deferred Urinary Catheter Management: Douglas: Cath Placed During This Visit: yes Reason for Continuing Indwelling Catheter: Accurate Measurement of Urinary Output in Critically Ill Patients Urinary Catheter Date of Insertion: 09/29/22 Urinary Catheter Time of Insertion: 15:00 Data 10/06/22 01:15 10/07/22 05:39 A&P Assessment and plan (1) Fluid overload: (2) BRAIN (acute kidney injury): Plan 1. Acute kidney injury, cardiorenal due to low cardiac output, biventricular heart failure, severe MR, possible underlying cirrhosis, possible hepatorenal as well. Urine output improved on lasix infusion, but is only 500 ml neg since admission. Renal function worse. 2. Volume overload 3. Hypokalemia, metabolic alkalosis 4. Hypervolemic hyponatremia, stable 5. Coagulopathy, improved Rec: I had a detailed discussion with Refugio. Recommended initiation of HD. Discussed insertion of dialysis catheter, dialysis procedure, risks and benefits. He is agreeable. s/p placement of tunneled HD catheter and HD started , Can DC once out pt hD chair arranged Attestations Medical Necessity Statement*: per medicine Coding Level of Care Code Acute Code for Chg Fwd Diagnoses Fluid overload E87.70 BRAIN (acute kidney injury) N17.9
[2022-10-07 11:53] LABS: Glucose Point of Care 254 mg/dL (70-110)
[2022-10-07] MEDS: lactulose oral liq 20 gm/30 mL UDC PO (14:29)
[2022-10-07 17:24] LABS: Glucose Point of Care 247 mg/dL (70-110)
--- NOTE | 2022-10-07 18:36 | PC.NURSE ---
Patient was sleeping during meal time. Family did not want to wake him.
[2022-10-07 20:44] LABS: Glucose Point of Care 238 mg/dL (70-110)
[2022-10-07] MEDS: GUAIFENESIN 400 MG 400 EACH PO (21:17)
[2022-10-07] MEDS: NON-FORMULARY MEDICATION (Pentoxifylline 400 mg tablet extended release) 400 EACH PO (21:23)
[2022-10-08] VITALS (30 sets, daily range): BP systolic 108–122; BP diastolic 66–94; PULSE 61–85; RESP 15–40; TEMP 36.5–37.1; O2SAT 84–96
[2022-10-08] MEDS: lactulose oral liq 20 gm/30 mL UDC PO ×2 (01:00→14:43)
[2022-10-08] MEDS: heparin 5,000 unit/mL INJ 1 mL 5000 UNIT SUBCUT (01:00)
[2022-10-08] MEDS: oxyCODONE-APAP 10-325 mg Tablet 1 TAB PO ×3 (01:03→17:16)
[2022-10-08] MEDS: HYDROmorphone 1 mg/mL INJ 1 mL 0.5 MG IVP (04:49)
[2022-10-08] MEDS: levothyroxine 100 mcg Tablet PO (06:11)
[2022-10-08 06:35] LABS: Glucose Point of Care 210 mg/dL (70-110)
[2022-10-08] MEDS: gabapentin 300 mg Capsule PO ×2 (08:56→17:16)
[2022-10-08] MEDS: atorvastatin 40 mg Tablet 20 MG PO (08:56)
[2022-10-08] MEDS: pantoprazole DR 40 mg Tablet PO ×2 (08:56→17:16)
[2022-10-08] MEDS: apixaban 5 mg Tablet PO (08:56)
[2022-10-08] MEDS: GUAIFENESIN 400 MG 400 EACH PO ×3 (08:57→21:56)
[2022-10-08] MEDS: nystatin powder 15 gm Btl 1 APPLIC TOPICAL ×2 (08:57→21:57)
[2022-10-08] MEDS: NON-FORMULARY MEDICATION (Pentoxifylline 400 mg tablet extended release) 400 EACH PO ×3 (08:57→21:56)
[2022-10-08] MEDS: insulin lispro 100 unit/1 mL SUBCUT ×3 (08:57→18:03)
--- NOTE | 2022-10-08 09:27 | PM.PN ---
Subjective Subjective: Patient seems to be at baseline He asked me how I am doing He was complaining of back pain from laying in the bed No source identified when we examined his back yesterday Multiple family meeting conducted yesterday As per social media coordinator he has not been accepted at skilled nursing yet Family is leaning towards skilled nursing placement Vitals/I&O/Wt Last Vital Signs Temp 97.7 F 10/08/22 03:37 Pulse 70 10/08/22 08:54 Resp 20 H 10/08/22 08:54 BP 120/94 10/08/22 08:54 Pulse Ox 92 10/08/22 08:54 O2 Del Method Nasal Cannula 10/08/22 08:54 O2 Flow Rate 2 10/08/22 08:54 FiO2 28 10/02/22 20:00 10/07/22 10/08/22 10/08/22 22:59 06:59 14:59 Intake Total 178 / 414 30 / 444 120 / 120 Output Total 100 / 100 50 / 150 Balance 78 / 314 -20 / 294 120 / 120 Weight last 48 hrs Weight 85.729 kg Weight 131.451 kg Weight 131.6 kg Physical Exam Narrative: Anasarca Distended abdomen Currently on 2 L Some redness around sacral area however no signs of ulcer Blanchable redness noted Venous stasis dermatitis Currently on 2 L Nonfocal neuro exam Fatigued and lethargic Able to answer my questions Asterixis positive Urinary Catheter Management: Douglas: Cath Placed During This Visit: yes Reason for Continuing Indwelling Catheter: Accurate Measurement of Urinary Output in Critically Ill Patients Urinary Catheter Date of Insertion: 09/29/22 Urinary Catheter Time of Insertion: 15:00 Data 10/06/22 01:15 10/07/22 05:39 A&P Assessment and plan (1) PAD (peripheral artery disease): (2) Peripheral neuropathy: Qualifiers: Peripheral neuropathy type: polyneuropathy, unspecified Qualified Code(s): G62.9 - Polyneuropathy, unspecified (3) Cardiomyopathy: (4) Acute on chronic diastolic (congestive) heart failure: (5) Peripheral arterial disease: (6) Venous ulcer of left leg: (7) Hx of cardiac pacemaker: (8) ESRD (end stage renal disease): (9) NSTEMI (non-ST elevated myocardial infarction): (10) Fluid overload: (11) Pulmonary vascular congestion: (12) OSITO (obstructive sleep apnea): Plan End-stage renal disease: Patient does have a chair time Tuesday Physical deconditioning We will need skilled nursing placement He is awaiting for placement NSTEMI: No plan for angiogram, family does not want to pursue angiogram at this point, Patient will be discharged with LifeVest EF is 20% Anasarca related to heart failure and renal failure I will request abdominal ultrasound to see if he has drainable ascites A-fib without RVR status post pacemaker Hold Eliquis in anticipation of paracentesis Chronic hypoxia requiring 2 L Congestive hepatopathy related to heart failure Prognosis seems poor Multiple family meetings being conducted on daily basis We will change CODE STATUS from full code to DNR/DNI, family is leaning towards skilled nursing placement with continuation of dialysis and if in case he gets worse may be at that point they will offer palliative care Attestations Medical Necessity Statement*: Awaiting placement Diagnoses PAD (peripheral artery disease) I73.9 Peripheral neuropathy G62.9 Peripheral neuropathy type: polyneuropathy, unspecified Cardiomyopathy I42.9 Acute on chronic diastolic (congestive) heart failure I50.33 Venous ulcer of left leg I83.029; L97.929 Hx of cardiac pacemaker Z95.0 ESRD (end stage renal disease) N18.6 NSTEMI (non-ST elevated myocardial infarction) I21.4 Fluid overload E87.70 Pulmonary vascular congestion R09.89 OSITO (obstructive sleep apnea) G47.33
--- NOTE | 2022-10-08 09:29 | US_ITS ---
WS: [id number] ULTRASOUND-GUIDED PARACENTESIS CLINICAL INFORMATION: therapeutic COMPARISON: None. Procedure Informed consent: The risks, benefits, and alternatives of the procedure were discussed with the jazz ent. Verbal and written consent was obtained. Timeout: A timeout was performed to confirm the correct patient, procedure, and site. Preparation: A suitable skin site was identified. The patient was prepped and draped in usual sterile fashion. Lidocaine 1% was used for local anesthesia. Catheter: 4 [place] Island[place] One-step Yueh catheter. Side: LEFT Lower quadrant. Fluid Volume: 8000 ml Color: orange DISPOSITION: Discarded safely. Complications: None. US/US paracentesis abd w [id number] IMPRESSION: Uncomplicated ultrasound-guided paracentesis. Removal of 8000 cc
[2022-10-08 10:38] LABS: Alanine Aminotransferase 6 U/L (0-41); Albumin Level 3.5 g/dL (3.5-5.2); Alkaline Phosphatase 191 U/L (40-130); Anion Gap 20.4 (5-19); Aspartate Amino Transferase 27 U/L (0-40); Blood Urea Nitrogen 69 mg/dL (8-23); Carbon Dioxide 25 mmol/L (22-29); Chloride 91 mmol/L (98-107); Globulin 3.7 g/dL (1.3-4.6); Glucose 219 mg/dL (65-115); Osmolality Calculated 301 mOsm/kg (285-295); Potassium 4.4 mmol/L (3.5-5.1); Sodium 132 mmol/L (136-145); Total Bilirubin 2.9 mg/dL (0.15-1.2); Total Protein 7.2 g/dL (6.6-8.7)
[2022-10-08 10:52] LABS: INR 2.25 (0.8-1.2)
[2022-10-08 11:16] LABS: Glucose Point of Care 226 mg/dL (70-110)
--- NOTE | 2022-10-08 11:36 | PC.SOCIAL ---
IMM update IMM updated with patient. Verbalized an understanding. Copy PG 2 provided. Initialled, dated, timed, and placed in chart.
--- NOTE | 2022-10-08 11:49 | PM.PN ---
Subjective Subjective: no new complaints Medications: Reviewed: Yes Vitals/I&O/Wt Last Vital Signs Temp 97.7 F 10/08/22 03:37 Pulse 70 10/08/22 08:54 Resp 20 H 10/08/22 08:54 BP 120/94 10/08/22 08:54 Pulse Ox 92 10/08/22 08:54 O2 Del Method Nasal Cannula 10/08/22 08:54 O2 Flow Rate 2 10/08/22 08:54 FiO2 28 10/02/22 20:00 10/07/22 10/08/22 10/08/22 22:59 06:59 14:59 Intake Total 178 / 414 30 / 444 120 / 120 Output Total 100 / 100 50 / 150 Balance 78 / 314 -20 / 294 120 / 120 Weight last 48 hrs Weight 85.729 kg Weight 131.451 kg Weight 131.6 kg Physical Exam Narrative: awake , alert , no distress HEENT S1 S2 RRR per report Lungs clear per report Urinary Catheter Management: Douglas: Cath Placed During This Visit: yes Reason for Continuing Indwelling Catheter: Accurate Measurement of Urinary Output in Critically Ill Patients Urinary Catheter Date of Insertion: 09/29/22 Urinary Catheter Time of Insertion: 15:00 Data 10/06/22 01:15 10/08/22 10:08 A&P Assessment and plan (1) Fluid overload: (2) BRAIN (acute kidney injury): Plan 1. Acute kidney injury, cardiorenal due to low cardiac output, biventricular heart failure, severe MR, possible underlying cirrhosis, possible hepatorenal as well. Urine output improved on lasix infusion, but is only 500 ml neg since admission. Renal function worse. 2. Volume overload 3. Hypokalemia, metabolic alkalosis 4. Hypervolemic hyponatremia, stable 5. Coagulopathy, improved Rec: Recommended initiation of HD. Discussed insertion of dialysis catheter, dialysis procedure, risks and benefits. He is agreeable. s/p placement of tunneled HD catheter and HD started ,NExt HD tomorrow Can DC once out pt hD chair arranged Attestations Medical Necessity Statement*: per medicine Coding Level of Care Code Acute Code for Chg Fwd Diagnoses Fluid overload E87.70 BRAIN (acute kidney injury) N17.9
[2022-10-08] MEDS: tamsulosin 0.4 mg Capsule PO (17:17)
[2022-10-08 17:37] LABS: Glucose Point of Care 321 mg/dL (70-110)
[2022-10-08 22:17] LABS: Glucose Point of Care 245 mg/dL (70-110)
[2022-10-09] VITALS (37 sets, daily range): BP systolic 96–142; BP diastolic 58–80; PULSE 60–88; RESP 13–29; TEMP 36.4–37; O2SAT 91–99
[2022-10-09] MEDS: oxyCODONE-APAP 10-325 mg Tablet 1 TAB PO ×3 (00:13→17:52)
[2022-10-09] MEDS: lactulose oral liq 20 gm/30 mL UDC PO ×2 (01:51→15:16)
[2022-10-09 03:37] LABS: Basophils % 0.4 %; Eosinophils # 0.1 10^3/uL (0.0-0.8); Eosinophils % 1.2 %; Hematocrit 36.8 % (42.0-52.0); Hemoglobin 11.9 g/dL (11.7-16.6); Lymphocytes # 0.9 10^3/uL (0.8-4.8); Lymphocytes % 8.4 %; Mean Corpuscular HGB Conc 32.3 g/dL (30.0-36.0); Mean Corpuscular Hemoglobin 27.4 pg (28.0-34.0); Mean Corpuscular Volume 84.6 fl (80-94); Mean Platelet Volume 11.3 fL (7.4-10.4); Monocytes # 1.1 10^3/uL (0.2-0.9); Monocytes % 9.4 %; Nucleated Red Blood Cells % 0 %; Platelet Count 235 10^3/cmm (130-400); Red Blood Count 4.35 10^6/uL (4.1-5.3); Red Cell Distribution Width 17.1 % (12.1-15.1); White Blood Count 11.2 10^3/uL (4.0-10.0)
[2022-10-09 04:02] LABS: Anion Gap 17.2 (5-19); Blood Urea Nitrogen 74 mg/dL (8-23); Calcium 8.9 mg/dL (8.5-10.5); Carbon Dioxide 29 mmol/L (22-29); Chloride 90 mmol/L (98-107); Glucose 230 mg/dL (65-115); Osmolality Calculated 303 mOsm/kg (285-295); Potassium 4.2 mmol/L (3.5-5.1); Sodium 132 mmol/L (136-145)
[2022-10-09] MEDS: levothyroxine 100 mcg Tablet PO (05:51)
[2022-10-09 06:45] LABS: Glucose Point of Care 218 mg/dL (70-110)
[2022-10-09] MEDS: insulin lispro 100 unit/1 mL SUBCUT ×3 (08:01→17:53)
[2022-10-09] MEDS: gabapentin 300 mg Capsule PO ×2 (08:02→17:53)
[2022-10-09] MEDS: bumetanide 1 mg Tablet PO (08:02)
[2022-10-09] MEDS: nystatin powder 15 gm Btl 1 APPLIC TOPICAL (08:04)
[2022-10-09] MEDS: pantoprazole DR 40 mg Tablet PO ×2 (08:08→17:52)
[2022-10-09] MEDS: GUAIFENESIN 400 MG 400 EACH PO ×3 (08:08→20:03)
[2022-10-09] MEDS: NON-FORMULARY MEDICATION (Pentoxifylline 400 mg tablet extended release) 400 EACH PO ×3 (08:08→20:03)
--- NOTE | 2022-10-09 08:43 | PC.NURSE ---
to dialysis via bed [id number]
--- NOTE | 2022-10-09 11:49 | P.PN_ITS ---
Subjective Subjective: Spoke with the who is planning to let us know their final decision today She is stating that she was not able to discuss completely with her because he was not very alert yesterday Status post paracentesis 8 L out Getting dialysis today Vitals/I&O/Wt Last Vital Signs Temp 98.4 F 10/09/22 08:50 Pulse 62 10/09/22 08:50 Resp 18 10/09/22 08:50 BP 142/75 10/09/22 08:50 Pulse Ox 96 10/09/22 07:29 O2 Del Method Nasal Cannula 10/09/22 07:29 O2 Flow Rate 2 10/09/22 07:29 FiO2 28 10/02/22 20:00 10/08/22 10/09/22 10/09/22 22:59 06:59 14:59 Intake Total 0 / 360 150 / 510 200 / 200 Output Total 8000 / 8000 375 / 8375 Balance -8000 / -7640 -225 / -7865 200 / 200 Weight last 48 hrs Weight 85.729 kg Physical Exam Narrative: Anasarca Slight improvement Fatigued and lethargic Able to answer few questions No new focal deficit Lower extremity venous stasis dermatitis Currently on 2 L of oxygen S1, S2 paced rhythm abd Distention slight improvement Urinary Catheter Management: Douglas: Cath Placed During This Visit: yes Reason for Continuing Indwelling Catheter: Accurate Measurement of Urinary Output in Critically Ill Patients Urinary Catheter Date of Insertion: 09/29/22 Urinary Catheter Time of Insertion: 15:00 Data 10/09/22 03:12 10/09/22 03:12 A&P Assessment and plan (1) ESRD (end stage renal disease): (2) NSTEMI (non-ST elevated myocardial infarction): (3) COPD (chronic obstructive pulmonary disease): (4) Fluid overload: (5) PAD (peripheral artery disease): (6) Cardiomyopathy: (7) Status post cardiac pacemaker procedure: (8) Nonischemic cardiomyopathy: Plan 1. Take care of him at home, we are looking for skilled nursing placement Family has not decided whether they would opt for hospice care at the time of d ischarge or continue with dialysis, today spoke with the as well and she is stating that she would like to let us know by end of the day, my previous meeting with them was on when they were opting for continuation of dialysis at the skilled nursing and in case he gets worse they might opt for hospice care End-stage renal disease Tuesday, chair time has been improved packing floor worker to arrange skilled nursing placement A-fib without RVR: Paced rhythm Continue Eliquis at discharge if not on hospice Eliquis was held for paracentesis yesterday Abdominal paracentesis 8 L removed Congestive hepatopathy related to heart failure Anasarca Attestations Medical Necessity Statement*: Discharge likely on Tuesday Diagnoses ESRD (end stage renal disease) N18.6 NSTEMI (non-ST elevated myocardial infarction) I21.4 COPD (chronic obstructive pulmonary disease) J44.9 Fluid overload E87.70 PAD (peripheral artery disease) I73.9 Cardiomyopathy I42.9 Status post cardiac pacemaker procedure Z95.0 Nonischemic cardiomyopathy I42.8
[2022-10-09 12:11] LABS: Glucose Point of Care 162 mg/dL (70-110)
--- NOTE | 2022-10-09 12:15 | PC.NURSE ---
return from dialysis via bed at 12:00 .1- 1/2 liters removed per dialysis nurse.
--- NOTE | 2022-10-09 14:27 | P.PN_ITS ---
Subjective Subjective: no new c/o Medications: Reviewed: Yes Vitals/I&O/Wt Last Vital Signs Temp 98.6 F 10/09/22 11:51 Pulse 62 10/09/22 12:00 Resp 20 H 10/09/22 12:22 BP 118/79 10/09/22 12:00 Pulse Ox 93 10/09/22 12:22 O2 Del Method Nasal Cannula 10/09/22 07:29 O2 Flow Rate 2 10/09/22 07:29 FiO2 28 10/02/22 20:00 10/08/22 10/09/22 10/09/22 22:59 06:59 14:59 Intake Total 0 / 360 150 / 510 620 / 620 Output Total 8000 / 8000 375 / 8375 1800 / 1800 Balance -8000 / -7640 -225 / -7865 -1180 / -1180 Weight last 48 hrs Weight 122.9 kg Weight 85.729 kg Physical Exam Narrative: awake , alert , no distress HEENT S1 S2 RRR per report Lungs clear per report Urinary Catheter Management: Douglas: Cath Placed During This Visit: yes Reason for Continuing Indwelling Catheter: Accurate Measurement of Urinary O utput in Critically Ill Patients Urinary Catheter Date of Insertion: 09/29/22 Urinary Catheter Time of Insertion: 15:00 Data 10/09/22 03:12 10/09/22 03:12 A&P Assessment and plan (1) Fluid overload: (2) BRAIN (acute kidney injury): Plan 1. Acute kidney injury, cardiorenal due to low cardiac output, biventricular heart failure, severe MR, possible underlying cirrhosis, possible hepatorenal as well. Urine output improved on lasix infusion, but is only 500 ml neg since admi ssion. Renal function worse. 2. Volume overload 3. Hypokalemia, metabolic alkalosis 4. Hypervolemic hyponatremia, stable 5. Coagulopathy, improved Rec: Recommended initiation of HD. Discussed insertion of dialysis catheter, dialysis procedure, risks and benefits. He is agreeable. s/p placement of tunneled HD catheter and HD started , on TTS schedule Can DC once out pt hD chair arranged Attestations Medical Necessity Statement*: per medicine Coding Level of Care Code Acute Code for Chg Fwd Diagnoses Fluid overload E87.70 BRAIN (acute kidney injury) N17.9
--- NOTE | 2022-10-09 15:04 | PC.PT ---
Evaluation attempted and family spoken with. Pt just got back from dialysis and is very weak and lethargic and hurts in every joint in his body. Nursing notified about holding until tomorrow due to not able to move at this time.
[2022-10-09] MEDS: tamsulosin 0.4 mg Capsule PO (17:53)
[2022-10-10] VITALS (31 sets, daily range): BP systolic 104–121; BP diastolic 58–71; PULSE 60–82; RESP 12–27; TEMP 36.4–37.1; O2SAT 92–99
[2022-10-10] MEDS: lactulose oral liq 20 gm/30 mL UDC PO ×2 (00:53→14:18)
[2022-10-10] MEDS: oxyCODONE-APAP 10-325 mg Tablet 1 TAB PO ×3 (00:53→18:08)
[2022-10-10] MEDS: levothyroxine 100 mcg Tablet PO (05:03)
[2022-10-10] MEDS: insulin lispro 100 unit/1 mL SUBCUT ×3 (07:54→18:01)
[2022-10-10] MEDS: bumetanide 1 mg Tablet PO (08:10)
[2022-10-10] MEDS: gabapentin 300 mg Capsule PO ×2 (08:10→18:02)
[2022-10-10] MEDS: GUAIFENESIN 400 MG 400 EACH PO ×3 (08:10→20:04)
[2022-10-10] MEDS: pantoprazole DR 40 mg Tablet PO ×2 (08:10→18:02)
[2022-10-10] MEDS: acetaminophen 325 mg Tablet 650 MG PO (08:10)
[2022-10-10] MEDS: NON-FORMULARY MEDICATION (Pentoxifylline 400 mg tablet extended release) 400 EACH PO ×3 (08:10→20:04)
[2022-10-10] MEDS: nystatin powder 15 gm Btl 1 APPLIC TOPICAL ×2 (08:15→18:02)
--- NOTE | 2022-10-10 09:23 | PC.SOCIAL ---
IMM update IMM updated with patient. Verbalized an understanding. Copy PG 2 provided. Initialled, dated, timed, and placed in chart.
--- NOTE | 2022-10-10 11:16 | PC.NURSE ---
accu check was 232 at 0700 this morning.
--- NOTE | 2022-10-10 11:17 | P.PN_ITS ---
Subjective Subjective: Patient awaiting placement Overnight events Patient endorsing feeling better abdominal distention has improved significantly Vitals/I&O/Wt Last Vital Signs Temp 98.7 F 10/10/22 07:36 Pulse 69 10/10/22 07:36 Resp 15 10/10/22 09:04 BP 108/71 10/10/22 07:36 Pulse Ox 95 10/10/22 07:36 O2 Del Method Nasal Cannula 10/10/22 07:36 O2 Flow Rate 2 10/10/22 07:30 FiO2 28 10/02/22 20:00 10/09/22 10/10/22 10/10/22 22:59 06:59 14:59 Intake Total 120 / 740 240 / 980 240 / 240 Output Total 400 / 2200 150 / 2350 Balance -280 / -1460 90 / -1370 240 / 240 Weight last 48 hrs Weight 120.656 kg Weight 120.656 kg Weight 122.9 kg Physical Exam Narrative: GCS 15 Fatigued and lethargic Did not do well with PT S1, S2 paced rhythm Distended abdomen nontender Lower extremity venous stasis dermatitis no cellulitis Currently on 2 L Urinary Catheter Management: Douglas: Cath Placed During This Visit: yes Reason for Continuing Indwelling Catheter: Accurate Measurement of Urinary Output in Critically Ill Patients Urinary Catheter Date of Insertion: 09/29/22 Urinary Catheter Time of Insertion: 15:00 Data 10/09/22 03:12 10/09/22 03:12 A&P Assessment and plan (1) ESRD (end stage renal disease): (2) COPD (chronic obstructive pulmonary disease): (3) PAD (peripheral artery disease): (4) Cardiomyopathy: (5) Exertional dyspnea: (6) Nonischemic cardiomyopathy: Plan End-stage renal disease Tuesday chair time has been approved Awaiting placement for now Status post paracentesis:Abdominal distention has improved He is experiencing bowel movement on daily basis Able to answer simple questions Likely will be able to discharge on Tuesday DNR/DNI Patient does not want to pursue coronary angiogram Family had decided to go with penitentiary placement for now and in case he gets worse then they might opt for palliative care Attestations Medical Necessity Statement*: Discharge likely in next 24 hours Diagnoses ESRD (end stage renal disease) N18.6 COPD (chronic obstructive pulmonary disease) J44.9 PAD (peripheral artery disease) I73.9 Cardiomyopathy I42.9 Exertional dyspnea R06.00 Nonischemic cardiomyopathy I42.8
--- NOTE | 2022-10-10 11:17 | PC.NURSE ---
accu check was 256 at 1100
[2022-10-10 11:24] LABS: Glucose Point of Care 249 mg/dL (70-110)
[2022-10-10 16:29] LABS: Glucose Point of Care 321 mg/dL (70-110)
[2022-10-10] MEDS: tamsulosin 0.4 mg Capsule PO (18:02)
[2022-10-10] MEDS: apixaban 5 mg Tablet PO (18:02)
[2022-10-10 20:25] LABS: Glucose Point of Care 312 mg/dL (70-110)
[2022-10-11] VITALS (17 sets, daily range): BP systolic 99–118; BP diastolic 59–80; PULSE 61–75; RESP 12–27; TEMP 36.3–36.8; O2SAT 95–99
[2022-10-11] MEDS: lactulose oral liq 20 gm/30 mL UDC PO ×3 (02:08→23:50)
[2022-10-11] MEDS: oxyCODONE-APAP 10-325 mg Tablet 1 TAB PO ×2 (02:08→23:50)
[2022-10-11] MEDS: levothyroxine 100 mcg Tablet PO (05:51)
[2022-10-11 06:31] LABS: Glucose Point of Care 208 mg/dL (70-110)
--- NOTE | 2022-10-11 07:37 | PM.PN ---
Subjective Subjective: no new complaints Medications: Reviewed: Yes Vitals/I&O/Wt Last Vital Signs Temp 98.0 F 10/11/22 07:34 Pulse 75 10/11/22 07:34 Resp 27 H 10/11/22 07:34 BP 117/80 10/11/22 07:34 Pulse Ox 95 10/11/22 07:34 O2 Del Method Room Air 10/11/22 07:34 O2 Flow Rate 2 10/10/22 19:37 FiO2 28 10/02/22 20:00 10/10/22 10/11/22 10/11/22 22:59 06:59 14:59 Intake Total 490 / 730 Output Total 150 / 150 200 / 350 Balance 340 / 580 -200 / 380 Weight last 48 hrs Weight 122.878 kg Weight 120.656 kg Weight 120.656 kg Weight 122.9 kg Physical Exam Narrative: awake , alert , no distress HEENT S1 S2 RRR per report Lungs clear per report Urinary Catheter Management: Douglas: Cath Placed During This Visit: yes Reason for Continuing Indwelling Catheter: Acute Urinary Retention or Obstruction Urinary Catheter Date of Insertion: 09/29/22 Urinary Catheter Time of Insertion: 15:00 Data 10/09/22 03:12 10/09/22 03:12 A&P Assessment and plan (1) Fluid overload: (2) BRAIN (acute kidney injury): Plan 1. Acute kidney injury, cardiorenal due to low cardiac output, biventricular heart failure, severe MR, possible underlying cirrhosis, possible hepatorenal as well. Urine output improved on lasix infusion, but is only 500 ml neg since admission. 2. Volume overload 3. Hypokalemia, metabolic alkalosis 4. Hypervolemic hyponatremia, stable 5. Coagulopathy, improved Rec: Recommended initiation of HD. Discussed insertion of dialysis catheter, dialysis procedure, risks and benefits. He is agreeable. s/p placement of tunneled HD catheter and HD started , on TTS schedule Can DC once out pt hD chair arranged Attestations Medical Necessity Statement*: per medicine Coding Level of Care Code Acute Code for Chg Fwd Diagnoses Fluid overload E87.70 BRAIN (acute kidney injury) N17.9
[2022-10-11] MEDS: bumetanide 1 mg Tablet PO (09:12)
[2022-10-11] MEDS: GUAIFENESIN 400 MG 400 EACH PO ×3 (09:12→20:43)
[2022-10-11] MEDS: gabapentin 300 mg Capsule PO ×2 (09:12→17:53)
[2022-10-11] MEDS: apixaban 5 mg Tablet PO (09:12)
[2022-10-11] MEDS: pantoprazole DR 40 mg Tablet PO ×2 (09:12→17:53)
[2022-10-11] MEDS: insulin lispro 100 unit/1 mL SUBCUT ×3 (09:13→17:54)
[2022-10-11] MEDS: NON-FORMULARY MEDICATION (Pentoxifylline 400 mg tablet extended release) 400 EACH PO ×3 (09:13→20:43)
[2022-10-11] MEDS: nystatin powder 15 gm Btl 1 APPLIC TOPICAL ×2 (09:17→17:54)
--- NOTE | 2022-10-11 09:53 | PM.PN ---
Subjective Subjective: Patient had a bloody bowel movement today Requesting DIC profile and H&H Pressure stable Hold Eliquis She was endorsing feeling energetic today grommet worker finding placement for him Vitals/I&O/Wt Last Vital Signs Temp 98.0 F 10/11/22 07:34 Pulse 65 10/11/22 07:43 Resp 20 H 10/11/22 07:43 BP 117/80 10/11/22 07:34 Pulse Ox 98 10/11/22 07:43 O2 Del Method Nasal Cannula 10/11/22 07:43 O2 Flow Rate 2 10/11/22 07:43 FiO2 28 10/02/22 20:00 10/10/22 10/11/22 10/11/22 22:59 06:59 14:59 Intake Total 490 / 730 360 / 360 Output Total 150 / 150 200 / 350 Balance 340 / 580 -200 / 380 360 / 360 Weight last 48 hrs Weight 122.878 kg Weight 120.656 kg Weight 120.656 kg Weight 122.9 kg Physical Exam Narrative: Patient lying supine Energy slightly better as compared to yesterday Currently on 2 L Abdomen nontender Lower extremity venous dermatitis Active cellulitis GCS 15 Nonfocal neuro exam Patient was stating that he is embarrassed that he saw himself with feces, bloody bowel movement noted by the nursing staff Urinary Catheter Management: Douglas: Cath Placed During This Visit: yes Reason for Continuing Indwelling Catheter: Acute Urinary Retention or Obstruction Urinary Catheter Date of Insertion: 09/29/22 Urinary Catheter Time of Insertion: 15:00 Data 10/09/22 03:12 10/09/22 03:12 A&P Assessment and plan (1) ESRD (end stage renal disease): (2) NSTEMI (non-ST elevated myocardial infarction): (3) Fluid overload: (4) OSITO (obstructive sleep apnea): (5) Edema: Qualifiers: Edema type: unspecified Qualified Code(s): R60.9 - Edema, unspecified (6) Chronic atrial fibrillation: (7) Peripheral arterial disease: (8) Nonischemic cardiomyopathy: (9) PAD (peripheral artery disease): Plan Hematochezia Watch H&H Hemodynamically stable Hold Eliquis Likely hyperlobulated related to liver congestion End-stage renal disease Tuesday chair time has been improved NSTEMI: Patient has opted not to go for coronary angiogram Poor functional status: residential placement, Guarded prognosis: Considered nonischemic cardiomyopathy EF 20% patient has a LifeVest that he will use at discharge, in case of further worsening patient family might opt for palliative/hospice care Multiple family is clinically throughout hospitalization Asterixis: Improving Lactulose also on hold Ammonia level not significantly high A-fib Status post pacemaker Paced rhythm Holding Eliquis DNR/DNI Renal diet Attestations Medical Necessity Statement*: Awaiting placement Diagnoses ESRD (end stage renal disease) N18.6 NSTEMI (non-ST elevated myocardial infarction) I21.4 Fluid overload E87.70 OSITO (obstructive sleep apnea) G47.33 Edema R60.9 Edema type: unspecified Chronic atrial fibrillation I48.20 Peripheral arterial disease I73.9 Nonischemic cardiomyopathy I42.8
[2022-10-11 10:27] LABS: Hematocrit 34.9 % (42.0-52.0); Hemoglobin 11.1 g/dL (11.7-16.6)
[2022-10-11 10:38] LABS: INR 2.06 (0.8-1.2)
[2022-10-11 10:39] LABS: Fibrinogen 300 mg/dL (174-498); Partial Thromboplastin Time 35.6 SECONDS (23.9-36.7)
[2022-10-11 10:49] LABS: D Dimer 5.37 ug/mIFEU (0-0.59)
--- NOTE | 2022-10-11 13:27 | P.DS_ITS ---
Discharge Providers Date of Admission: 09/29/22 12:40 Date of Discharge: October 11, 2022 Attending Provider at Admission: Steven Cross MD Attending Provider at Discharge: Katerine Padilla MD Primary Care Provider: Mary Lou Anaya MD Diagnoses at Discharge Discharge Diagnosis (1) Fluid overload: Status: Acute (2) BRAIN (acute kidney injury): Status: Acute (3) Chronic atrial fibrillation: Status: Acute Permanent problem details: Patient is on long-term oral anticoagulation. (4) Peripheral arterial disease: Status: Acute Permanent problem details: Peripheral angiogram in October 2019 revealing no significant lesions. He was found to have mild to moderate diffuse disease in the left lower extremity. (5) Edema: Status: Acute Qualifiers: Edema type: unspecified Qualified Code(s): R60.9 - Edema, unspecified (6) OSITO (obstructive sleep apnea): Status: Acute (7) NSTEMI (non-ST elevated myocardial infarction): Status: Acute Reason for Visit Reason for Visit: ex edema Hospital Course Hospital Course 76 male with history of chronic kidney disease, A-fib, pacemaker, chronic anticoagulation was diagnosed with NSTEMI, patient experienced significant worsening of kidney function to the point where we had to put tunneled dialysis catheter, patient suffered from cardiorenal syndrome, EF 20%, patient and family did not agree with coronary angiogram because of worsening of kidney function during hospitalization, patient already has a LifeVest, he has been doing very poorly, poor p.o. intake, worsening of liver function with ascites, status post 8 L of removal after paracentesis, his mentation is fluctuant, he mostly just fatigued and lethargic and stays in his bed, sacral area has blanchable rash without active ulcer, considering guarded prognosis multiorgan involvement, patient and family decided to make him DNR/DNI, they want to pursue hemodialysis at this point in case he gets worse in future they might opt for palliative/hospice care. Patient is being discharged to alf. Patient had 1 episode of bloody bowel movement during hospital H&H has been stable H&H at discharge is 11 Please note, in case he develops any complications in future patient and family in agreement to pursue palliative/hospice care, my concern is related to complications during and after dialysis. Patient is not a good candidate for EGD or colonoscopy in case he starts having hematochezia or hematemesis related to use of Eliquis and underlying worsening of liver function Physical Exam Narrative: Patient lying supine Energy slightly better as compared to yesterday Currently on 2 L Abdomen nontender Lower extremity venous dermatitis Active cellulitis GCS 15 Nonfocal neuro exam Patient was stating that he is embarrassed that he saw himself with feces, bloody bowel movement noted by the nursing staff Urinary Catheter Management: Douglas: Cath Placed During This Visit: yes Reason for Continuing Indwelling Catheter: Acute Urinary Retention or Obstruction Urinary Catheter Date of Insertion: 09/29/22 Urinary Catheter Time of Insertion: 15:00 Discharge Data Studies Completed and Pending Completed Studies During Hospitalization Category Date Time Status CXRP [XR chest 1V portable [id number]] Routine Exams 10/04/22 11:28 Completed XR chest 1V portable [id number] Stat Exams 09/29/22 11:28 Completed US paracentesis abdomen [US paracentesis abd w 19412] Ultrasound 10/08/22 09:29 Completed Routine Pending at discharge Category Date Time Status ABO/Rh Type Stat Lab 10/04/22 09:40 Results Basic Metabolic Panel AM LABS Lab 10/12/22 04:00 Ordered Complete Blood Count w/Auto AM LABS Lab 10/12/22 04:00 Ordered Complete Crossmatch Stat Lab 10/04/22 09:40 Results FFP [Frozen Plasma FZ <24 1st Cont] Routine Lab 10/04/22 09:40 Results Type and Screen Stat Lab 10/04/22 09:40 Results Radiology Impressions C-Arm Fluoroscopy 10/04/22 10:26 IMPRESSION: Intraoperative imaging during dialysis port placement. Chest X-Ray 10/04/22 11:28 IMPRESSION: 1. Right-sided double-lumen catheter appears to extend into the right atrium. 2. Cardiac enlargement with pulmonary vascular congestion suggesting low-grade CHF. Fluid overload might be considered. Paracentesis Ultrasound 10/08/22 09:29 IMPRESSION: Uncomplicated ultrasound-guided paracentesis. Removal of 8000 cc Laboratory Results WBC 11.2 10^3/uL (4.0-10.0) H 10/09/22 03:12 RBC 4.35 10^6/uL (4.1-5.3) 10/09/22 03:12 Hgb 11.1 g/dL (11.7-16.6) L 10/11/22 10:16 Hct 34.9 % (42.0-52.0) L 10/11/22 10:16 MCV 84.6 fl (80-94) 10/09/22 03:12 MCH 27.4 pg (28.0-34.0) L 10/09/22 03:12 MCHC 32.3 g/dL (30.0-36.0) 10/09/22 03:12 RDW 17.1 % (12.1-15.1) H 10/09/22 03:12 Plt Count 235 10^3/cmm (130-400) 10/09/22 03:12 MPV 11.3 fL (7.4-10.4) H 10/09/22 03:12 Neut % (Auto) 80.0 % 10/09/22 03:12 Lymph % (Auto) 8.4 % 10/09/22 03:12 [place] % (Auto) 9.4 % 10/09/22 03:12 Eos % (Auto) 1.2 % 10/09/22 03:12 Baso % (Auto) 0.4 % 10/09/22 03:12 Neut # (Auto) 9.00 10^3/uL (1.8-7.7) H 10/09/22 03:12 Lymph # (Auto) 0.9 10^3/uL (0.8-4.8) 10/09/22 03:12 [place] # (Auto) 1.1 10^3/uL (0.2-0.9) H 10/09/22 03:12 Eos # (Auto) 0.1 10^3/uL (0.0-0.8) 10/09/22 03:12 Baso # (Auto) 0.0 10^3/uL (0.0-0.1) 10/09/22 03:12 Nucleated RBC % (auto) 0 % 10/09/22 03:12 Nucleated RBCs # 0.0 /100WBC 10/09/22 03:12 PT 23.90 SECONDS (12.1-14.9) H 10/11/22 10:16 INR 2.06 (0.8-1.2) H 10/11/22 10:16 APTT 35.6 SECONDS (23.9-36.7) 10/11/22 10:16 Fibrinogen 300 mg/dL (174-498) 10/11/22 10:16 Fibrin Degrad Products Pos, 10-40 ug/mL (NEG) H 10/11/22 10:16 D-Dimer 5.37 ug/mIFEU (0-0.59) H 10/11/22 10:16 Specimen Type Arterial 10/05/22 09:05 Sample Site Radial, left 10/05/22 09:05 ABG pH 7.52 (7.35-7.45) H 10/05/22 09:05 ABG pCO2 37.5 mmHg (35-45) 10/05/22 09:05 ABG pO2 87.0 mmHg (80.0-100.0) 10/05/22 09:05 ABG HCO3 30.2 mmol/L (22-26) H 10/05/22 09:05 ABG O2 Saturation 97.4 10/05/22 09:05 ABG Base Excess 6.9 mmol/L (-2.0-2.0) H 10/05/22 09:05 Librado Test Pos 10/05/22 09:05 A-a O2 Gradient 2.0 mmHg (5-10) L 10/05/22 09:05 Hematocrit 37.3 % (42-52) L 10/05/22 09:05 Hgb O2 Saturation 95.6 % (95-100) 10/05/22 09:05 Carboxyhemoglobin 1.4 %THgb (0.4-20.1) 10/05/22 09:05 Methemoglobin 0.4 % (0.4-1.5) 10/05/22 09:05 Total Hemoglobin 12.2 g/dL (14-18) L 10/05/22 09:05 Sodium 132.0 mmol/L (131-143) 10/05/22 09:05 Potassium 3.4 mmol/L (3.5-5.0) L 10/05/22 09:05 Glucose 235.0 mg/dL (70-115) H 10/05/22 09:05 Ionized Calcium 1.1 mmol/L (1.1-1.4) 10/05/22 09:05 O2 Delivery Device Nc 10/05/22 09:05 O2 Liters/Min 2.0 % 10/05/22 09:05 Graphics Coordinator ID [place] 10/05/22 09:05 Sodium 132 mmol/L (136-145) L 10/09/22 03:12 Potassium 4.2 mmol/L (3.5-5.1) 10/09/22 03:12 Chloride 90 mmol/L (98-107) L 10/09/22 03:12 Carbon Dioxide 29 mmol/L (22-29) 10/09/22 03:12 Anion Gap 17.2 (5-19) 10/09/22 03:12 BUN 74 mg/dL (8-23) H 10/09/22 03:12 Creatinine 3.2 mg/dL (0.7-1.2) H 10/09/22 03:12 GFR Calculation Not Reportable 10/09/22 03:12 Glucose 230 mg/dL (65-115) H 10/09/22 03:12 POC Glucose 208 mg/dL (70-110) H 10/11/22 06:24 Calculated Osmolality 303 mOsm/kg (285-295) H 10/09/22 03:12 Calcium 8.9 mg/dL (8.5-10.5) 10/09/22 03:12 Magnesium 2.2 mg/dL (1.7-2.3) 09/30/22 02:41 Total Bilirubin 2.9 mg/dL (0.15-1.2) H 10/08/22 10:08 AST 27 U/L (0-40) 10/08/22 10:08 ALT 6 U/L (0-41) 10/08/22 10:08 Alkaline Phosphatase 191 U/L (40-130) H 10/08/22 10:08 Ammonia 60 umol/L (16-60) 10/05/22 08:13 Troponin T Baseline 128 ng/L (0-15) H* 09/29/22 11:20 Troponin T 120 Minute 120.5 ng/L (0-15) H 09/29/22 13:40 Delta Troponin T -7.5 ABS# (0-10) L 09/29/22 13:40 Troponin T Hi Sens 6Hr 112.5 ng/L (0-15) H 09/29/22 17:31 Troponin T Hi Sens 6Hr Delta -15.5 ng/L (0-12) L 09/29/22 17:31 NT-Pro-B Natriuret Pep 3800 pg/mL (0-450) H 09/29/22 11:20 Total Protein 7.2 g/dL (6.6-8.7) 10/08/22 10:08 Albumin 3.5 g/dL (3.5-5.2) 10/08/22 10:08 Globulin 3.7 g/dL (1.3-4.6) 10/08/22 10:08 TSH 3.89 uIU/mL (0.27-4.20) 10/01/22 15:11 Urine Color Yellow (Yellow) 09/29/22 15:30 Urine Appearance Clear (CLEAR) 09/29/22 15:30 Urine pH 5 (5-7) 09/29/22 15:30 Ur Specific [place] 1.020 (1.005-1.030) 09/29/22 15:30 Urine Protein Neg (Negative) 09/29/22 15:30 Urine Glucose (UA) Norm (Normal) 09/29/22 15:30 Urine Ketones Negative (Negative) 09/29/22 15:30 Urine Blood Neg (Negative) 09/29/22 15:30 Urine Nitrate Negative (Negative) 09/29/22 15:30 Urine Bilirubin Neg (Negative) 09/29/22 15:30 Urine Urobilinogen Norm mg/dL (Negative) 09/29/22 15:30 Ur Leukocyte Esterase Negative (Negative) 09/29/22 15:30 Ur Random Sodium < 10 mmol/L 10/01/22 15:14 Urine Creatinine 97 mg/dL (39-259) 10/01/22 15:14 Hep Bs Antigen Non-reactive (Nonreactive) 10/04/22 10:10 Hep Bs Antibody < 3.5 (11.5-1000) L 10/04/22 10:10 Hep B Core Total Ab Non-reactive (Nonreactive) 10/04/22 10:10 Blood Type A Positive 10/04/22 09:40 Rho(D) Type Positive 10/04/22 09:40 Antibody Screen Negative 10/04/22 09:40 Vitals Last Vital Signs Temp 97.9 F 10/11/22 11:44 Pulse 75 10/11/22 11:44 Resp 15 10/11/22 11:44 BP 117/70 10/11/22 11:44 Pulse Ox 97 10/11/22 11:44 O2 Del Method Nasal Cannula 10/11/22 11:44 O2 Flow Rate 2 10/11/22 07:43 FiO2 28 10/02/22 20:00 Discharge Plan Discharge Patient Disposition: Xfer SNF Condition: Stable Prescriptions: New cholecalciferol (vitamin D3) [Vitamin D3] 10 mcg (400 unit) tablet 800 unit PO DAILY Qty: 60 0RF sevelamer carbonate [Renvela] 800 mg tablet 800 mg PO TID Qty: 90 0RF Rx Instructions: must administer with a meal/food sodium bicarbonate 650 mg tablet 650 mg PO BID Qty: 60 0RF omeprazole 40 mg capsule,delayed release(DR/EC) 40 mg PO BID Qty: 60 0RF Continued pentoxifylline 400 mg tablet extended release 400 mg PO TID omeprazole 20 mg capsule,delayed release(DR/EC) 20 mg PO BID vitamin E (dl, acetate) 1,000 unit capsule 1,000 unit PO DAILY cinnamon bark [Cinnamon] 500 mg capsule 500 mg PO BID PRN (Reason: unknown) atorvastatin 20 mg tablet 20 mg PO DAILY (DME) Dexcom G6 Sensor Device See Rx Instructions .Route Qty: 9 3RF Rx Instructions: change every 10 days (DME) Dexcom G6 Transmitter Device See Rx Instructions .Route Qty: 1 3RF Rx Instructions: change every 3 months oxycodone-acetaminophen 10-325 mg tablet 1 tab PO TID PRN (Reason: pain) 30 Days Qty: 90 0RF Rx Instructions: may fill 30 days after previous refill. (DME) diabetic shoes with 3 custom inserts See Rx Instructions .Route .MEDSUPPLY Qty: 1 0RF Rx Instructions: As directed (DME) Juzo compression wraps to right and left See Rx Instructions .Route .MEDSUPPLY Qty: 1 0RF Rx Instructions: As directed (DME) Dexcom G6 Nuclear Operations Specialist Misc See Rx Instructions .Route Qty: 1 0RF Rx Instructions: Check BS 4-6 times a day. (DME) Juzo Lymphedema Wraps Bilaterally 2 pairs See Rx Instructions .Route .MEDSUPPLY Qty: 1 0RF Rx Instructions: As directed J P & O capsaicin 0.075 % Cream 1 applic TOPICAL TID PRN (Reason: Pain) Rx Instructions: do not wash area for at least 30 min after application Flomax 0.4 mg Capsule 0.4 mg PO QPM lidocaine 5 % Adhesive Patch,Medicated 1 patch TOPICAL DAILY PRN (Reason: Pain) Rx Instructions: leave on most painful area for up to 12 hrs then off for 12 hrs carbamide peroxide 6.5 % Drops See Rx Instructions .ROUTE .COMPLEX Rx Instructions: 2 DROPS BOTH EARS EVERY 4 WEEKS NEEDED FOR WAX BLOCKAGE clotrimazole 1 % Cream 1 applic TOPICAL DAILY PRN (Reason: SCALES ON FEET) guaifenesin 400 mg Tablet 400 mg PO TID lactulose 10 gram/15 mL Solution 15 ml PO DAILY PRN (Reason: Constipation) omega-3 fatty acids 1,000 mg Capsule 1,000 mg PO BID zinc acetate 50 mg (zinc) Capsule 50 mg PO DAILY levothyroxine 100 mcg Tablet 100 mcg PO QAM insulin aspart U-100 [Novolog FlexPen U-100 Insulin] 100 unit/mL (3 mL) Insulin Pen See Rx Instructions .ROUTE .COMPLEX Rx Instructions: sliding scale daily as needed for blood sugar acarbose 100 mg tablet 100 mg PO TID Rx Instructions: before meals (ac) carvedilol 3.125 mg Tablet 3.125 mg PO BID 30 Days Qty: 60 0RF Rx Instructions: (not started or gotten from [facility] as of 09/29/22) Changed bumetanide 2 mg tablet 2 mg PO DAILY Qty: 30 0RF Levemir FlexTouch U-100 Insuln 100 unit/mL (3 mL) insulin pen 10 unit SUBCUT QAM Qty: 15 0RF Held Eliquis 5 mg tablet 5 mg PO BID Hold Instructions: Resume on 10/14/22. Discontinued metolazone 5 mg tablet 5 mg PO EVERY OTHER DAY gabapentin 800 mg tablet 800 mg PO TID testosterone 20.25 mg/1.25 gram (1.62 %) Gel In Metered-Dose Pump 2 pump TOPICAL DAILY Rx Instructions: apply 1 pump amount over max area of EACH upper arm and shoulder Referrals: Mary Lou Anaya MD [Primary Care Provider] - Discharge Diet: Cardiac Patient Instructions: Heart Failure (DC), Dialysis Diet (DC), Low-Sodium Diet (GEN), Hemodialysis (DC), Living With Your Heart Failure Monitoring System (GEN), CHF Stoplight, Post Heart Attack Stoplight Discharge Attestations Time Spent in Discharge Care*: greater than 30 min Status at Discharge: Cognitive status at discharge: cognitively intact , Behavioral status at discharge: cooperative , Quality Metrics Clinical Quality Measures [ No reported AMI, CVA or VTE this stay] Coding Level of Care Code Acute Code for Chg Fwd Diagnoses Fluid overload E87.70 BRAIN (acute kidney injury) N17.9 Chronic atrial fibrillation I48.20 Peripheral arterial disease I73.9 Edema R60.9 Edema type: unspecified OSITO (obstructive sleep apnea) G47.33 NSTEMI (non-ST elevated myocardial infarction) I21.4
[2022-10-11 14:51] LABS: Glucose Point of Care 191 mg/dL (70-110)
--- NOTE | 2022-10-11 15:25 | PC.NURSE ---
Call from : Pt called and stated, I do not want him going to [facility] until I talk with him. I know that is the plan but he is not to go until I speak with him. Unable to get in touch with case management at this time.
[2022-10-11 16:59] LABS: Glucose Point of Care 244 mg/dL (70-110)
--- NOTE | 2022-10-11 17:25 | PC.NURSE ---
Call from Daughter: Pt's daughter called and stated, We done been to [facility] and we got all of the information. My mom is okay with him going now and everything is set in motion.
[2022-10-11] MEDS: tamsulosin 0.4 mg Capsule PO (17:53)
[2022-10-11 20:23] LABS: Glucose Point of Care 268 mg/dL (70-110)
[2022-10-12] VITALS (8 sets, daily range): BP systolic 102–113; BP diastolic 60–72; PULSE 65–76; RESP 16–23; TEMP 36.5–37.1; O2SAT 94–99
[2022-10-12] MEDS: levothyroxine 100 mcg Tablet PO (06:03)
[2022-10-12 06:18] LABS: Basophils % 0.5 %; Eosinophils # 0.3 10^3/uL (0.0-0.8); Eosinophils % 3.1 %; Hematocrit 35.7 % (42.0-52.0); Hemoglobin 11.1 g/dL (11.7-16.6); Lymphocytes % 11.6 %; Mean Corpuscular HGB Conc 31.1 g/dL (30.0-36.0); Mean Corpuscular Hemoglobin 26.5 pg (28.0-34.0); Mean Corpuscular Volume 85.2 fl (80-94); Mean Platelet Volume 11.1 fL (7.4-10.4); Monocytes # 0.9 10^3/uL (0.2-0.9); Monocytes % 10.1 %; Neutrophils # 6.24 10^3/uL (1.8-7.7); Neutrophils % 74.1 %; Nucleated Red Blood Cells % 0 %; Platelet Count 197 10^3/cmm (130-400); Red Blood Count 4.19 10^6/uL (4.1-5.3); Red Cell Distribution Width 17.2 % (12.1-15.1); White Blood Count 8.4 10^3/uL (4.0-10.0)
[2022-10-12 06:22] LABS: Glucose Point of Care 164 mg/dL (70-110)
[2022-10-12 06:38] LABS: Anion Gap 12.8 (5-19); Blood Urea Nitrogen 56 mg/dL (8-23); Calcium 8.5 mg/dL (8.5-10.5); Carbon Dioxide 32 mmol/L (22-29); Chloride 92 mmol/L (98-107); Glucose 172 mg/dL (65-115); Osmolality Calculated 294 mOsm/kg (285-295); Potassium 4.8 mmol/L (3.5-5.1); Sodium 132 mmol/L (136-145)
[2022-10-12 06:41] LABS: SARS Covid-2 Antigen negative (Negative)
[2022-10-12] MEDS: pantoprazole DR 40 mg Tablet PO (08:35)
[2022-10-12] MEDS: bumetanide 1 mg Tablet PO (08:35)
[2022-10-12] MEDS: gabapentin 300 mg Capsule PO (08:35)
[2022-10-12] MEDS: insulin lispro 100 unit/1 mL SUBCUT ×2 (08:35→12:43)
[2022-10-12] MEDS: GUAIFENESIN 400 MG 400 EACH PO ×2 (08:36→15:21)
[2022-10-12] MEDS: NON-FORMULARY MEDICATION (Pentoxifylline 400 mg tablet extended release) 400 EACH PO ×2 (08:36→15:20)
--- NOTE | 2022-10-12 10:51 | PC.SOCIAL ---
IMM Updated Updated pt & family on IMM. No questions voiced. Provided pt a copy. Initialed, dated, & timed copy in chart.
--- NOTE | 2022-10-12 11:13 | P.DS_ITS ---
Discharge Providers Date of Admission: 09/29/22 12:40 Date of Discharge: October 12, 2022 Attending Provider at Admission: Steven Cross MD Attending Provider at Discharge: Katerine Padilla MD Primary Care Provider: Mary Lou Anaya MD Diagnoses at Discharge Discharge Diagnosis (1) CHF (congestive heart failure): Status: Acute (2) Acute on chronic diastolic (congestive) heart failure: Status: Acute (3) BRAIN (acute kidney injury): Status: Acute (4) CKD (chronic kidney disease): Status: Acute (5) COPD (chronic obstructive pulmonary disease): Status: Acute (6) OSITO (obstructive sleep apnea): Status: Acute Reason for Visit Reason for Visit: ex edema Hospital Course Hospital Course 76 male with history of chronic kidney disease, A-fib, pacemaker, chronic anticoagulation was diagnosed with NSTEMI, patient experienced significant worsening of kidney function to the point where we had to put tunneled dialysis catheter, patient suffered from cardiorenal syndrome, EF 20%, patient and family did not agree with coronary angiogram because of worsening of kidney function during hospitalization, patient already has a LifeVest, he has been doing very poorly, poor p.o. intake, worsening of liver function with ascites, status post 8 L of removal after paracentesis, his mentation is fluctuant, he mostly just fatigued and lethargic and stays in his bed, sacral area has blanchable rash without active ulcer, considering guarded prognosis multiorgan involvement, patient and family decided to make him DNR/DNI, they want to pursue hemodialysis at this point in case he gets worse in future they might opt for palliative/hospice care. Patient is being discharged to [facility]. Patient had 1 episode of bloody bowel movement during hospital H&H has been stable H&H at discharge is 11 Please note, in case he develops any complications in future patient and family in agreement to pursue palliative/hospice care, my concern is related to complications during and after dialysis. Patient is not a good candidate for EGD or colonoscopy in case he starts having hematochezia or hematemesis related to use of Eliquis and underlying worsening of liver function Physical Exam Narrative: Patient lying supine Energy slightly better as compared to yesterday Currently on 2 L Abdomen nontender Lower extremity venous dermatitis Active cellulitis GCS 15 Nonfocal neuro exam Patient was stating that he is embarrassed that he saw himself with feces, bloody bowel movement noted by the nursing staff Urinary Catheter Management: Douglas: Cath Placed During This Visit: yes Reason for Continuing Indwelling Catheter: Acute Urinary Retention or Obstruction Urinary Catheter Date of Insertion: 09/29/22 Urinary Catheter Time of Insertion: 15:00 Discharge Data Studies Completed and Pending Completed Studies During Hospitalization Category Date Time Status CXRP [XR chest 1V portable [id number]] Routine Exams 10/04/22 11:28 Completed XR chest 1V portable [id number] Stat Exams 09/29/22 11:28 Completed US paracentesis abdomen [US paracentesis abd w [id number]] Ultrasound 10/08/22 09:29 Completed Routine Pending at discharge Category Date Time Status ABO/Rh Type Stat Lab 10/04/22 09:40 Results Complete Crossmatch Stat Lab 10/04/22 09:40 Results FFP [Frozen Plasma FZ <24 1st Cont] Routine Lab 10/04/22 09:40 Results Type and Screen Stat Lab 10/04/22 09:40 Results Radiology Impressions C-Arm Fluoroscopy 10/04/22 10:26 IMPRESSION: Intraoperative imaging during dialysis port placement. Chest X-Ray 10/04/22 11:28 IMPRESSION: 1. Right-sided double-lumen catheter appears to extend into the right atrium. 2. Cardiac enlargement with pulmonary vascular congestion suggesting low-grade CHF. Fluid overload might be considered. Paracentesis Ultrasound 10/08/22 09:29 IMPRESSION: Uncomplicated ultrasound-guided paracentesis. Removal of 8000 cc Laboratory Results WBC 8.4 10^3/uL (4.0-10.0) 10/12/22 05:36 RBC 4.19 10^6/uL (4.1-5.3) 10/12/22 05:36 Hgb 11.1 g/dL (11.7-16.6) L 10/12/22 05:36 Hct 35.7 % (42.0-52.0) L 10/12/22 05:36 MCV 85.2 fl (80-94) 10/12/22 05:36 MCH 26.5 pg (28.0-34.0) L 10/12/22 05:36 MCHC 31.1 g/dL (30.0-36.0) 10/12/22 05:36 RDW 17.2 % (12.1-15.1) H 10/12/22 05:36 Plt Count 197 10^3/cmm (130-400) 10/12/22 05:36 MPV 11.1 fL (7.4-10.4) H 10/12/22 05:36 Neut % (Auto) 74.1 % 10/12/22 05:36 Lymph % (Auto) 11.6 % 10/12/22 05:36 Alexander % (Auto) 10.1 % 10/12/22 05:36 Eos % (Auto) 3.1 % 10/12/22 05:36 Baso % (Auto) 0.5 % 10/12/22 05:36 Neut # (Auto) 6.24 10^3/uL (1.8-7.7) 10/12/22 05:36 Lymph # (Auto) 1.0 10^3/uL (0.8-4.8) 10/12/22 05:36 Alexander # (Auto) 0.9 10^3/uL (0.2-0.9) 10/12/22 05:36 Eos # (Auto) 0.3 10^3/uL (0.0-0.8) 10/12/22 05:36 Baso # (Auto) 0.0 10^3/uL (0.0-0.1) 10/12/22 05:36 Nucleated RBC % (auto) 0 % 10/12/22 05:36 Nucleated RBCs # 0.0 /100WBC 10/12/22 05:36 PT 23.90 SECONDS (12.1-14.9) H 10/11/22 10:16 INR 2.06 (0.8-1.2) H 10/11/22 10:16 APTT 35.6 SECONDS (23.9-36.7) 10/11/22 10:16 Fibrinogen 300 mg/dL (174-498) 10/11/22 10:16 Fibrin Degrad Products Pos, 10-40 ug/mL (NEG) H 10/11/22 10:16 D-Dimer 5.37 ug/mIFEU (0-0.59) H 10/11/22 10:16 Specimen Type Arterial 10/05/22 09:05 Sample Site Radial, left 10/05/22 09:05 ABG pH 7.52 (7.35-7.45) H 10/05/22 09:05 ABG pCO2 37.5 mmHg (35-45) 10/05/22 09:05 ABG pO2 87.0 mmHg (80.0-100.0) 10/05/22 09:05 ABG HCO3 30.2 mmol/L (22-26) H 10/05/22 09:05 ABG O2 Saturation 97.4 10/05/22 09:05 ABG Base Excess 6.9 mmol/L (-2.0-2.0) H 10/05/22 09:05 Librado Test Pos 10/05/22 09:05 A-a O2 Gradient 2.0 mmHg (5-10) L 10/05/22 09:05 Hematocrit 37.3 % (42-52) L 10/05/22 09:05 Hgb O2 Saturation 95.6 % (95-100) 10/05/22 09:05 Carboxyhemoglobin 1.4 %THgb (0.4-20.1) 10/05/22 09:05 Methemoglobin 0.4 % (0.4-1.5) 10/05/22 09:05 Total Hemoglobin 12.2 g/dL (14-18) L 10/05/22 09:05 Sodium 132.0 mmol/L (131-143) 10/05/22 09:05 Potassium 3.4 mmol/L (3.5-5.0) L 10/05/22 09:05 Glucose 235.0 mg/dL (70-115) H 10/05/22 09:05 Ionized Calcium 1.1 mmol/L (1.1-1.4) 10/05/22 09:05 O2 Delivery Device Nc 10/05/22 09:05 O2 Liters/Min 2.0 % 10/05/22 09:05 Bandage Winding Machine Operator ID [place] 10/05/22 09:05 Sodium 132 mmol/L (136-145) L 10/12/22 05:36 Potassium 4.8 mmol/L (3.5-5.1) 10/12/22 05:36 Chloride 92 mmol/L (98-107) L 10/12/22 05:36 Carbon Dioxide 32 mmol/L (22-29) H 10/12/22 05:36 Anion Gap 12.8 (5-19) 10/12/22 05:36 BUN 56 mg/dL (8-23) H 10/12/22 05:36 Creatinine 2.0 mg/dL (0.7-1.2) H 10/12/22 05:36 GFR Calculation Not Reportable 10/12/22 05:36 Glucose 172 mg/dL (65-115) H 10/12/22 05:36 POC Glucose 164 mg/dL (70-110) H 10/12/22 06:09 Calculated Osmolality 294 mOsm/kg (285-295) 10/12/22 05:36 Calcium 8.5 mg/dL (8.5-10.5) 10/12/22 05:36 Magnesium 2.2 mg/dL (1.7-2.3) 09/30/22 02:41 Total Bilirubin 2.9 mg/dL (0.15-1.2) H 10/08/22 10:08 AST 27 U/L (0-40) 10/08/22 10:08 ALT 6 U/L (0-41) 10/08/22 10:08 Alkaline Phosphatase 191 U/L (40-130) H 10/08/22 10:08 Ammonia 60 umol/L (16-60) 10/05/22 08:13 Troponin T Baseline 128 ng/L (0-15) H* 09/29/22 11:20 Troponin T 120 Minute 120.5 ng/L (0-15) H 09/29/22 13:40 Delta Troponin T -7.5 ABS# (0-10) L 09/29/22 13:40 Troponin T Hi Sens 6Hr 112.5 ng/L (0-15) H 09/29/22 17:31 Troponin T Hi Sens 6Hr Delta -15.5 ng/L (0-12) L 09/29/22 17:31 NT-Pro-B Natriuret Pep 3800 pg/mL (0-450) H 09/29/22 11:20 Total Protein 7.2 g/dL (6.6-8.7) 10/08/22 10:08 Albumin 3.5 g/dL (3.5-5.2) 10/08/22 10:08 Globulin 3.7 g/dL (1.3-4.6) 10/08/22 10:08 TSH 3.89 uIU/mL (0.27-4.20) 10/01/22 15:11 Urine Color Yellow (Yellow) 09/29/22 15:30 Urine Appearance Clear (CLEAR) 09/29/22 15:30 Urine pH 5 (5-7) 09/29/22 15:30 Ur Specific [place] 1.020 (1.005-1.030) 09/29/22 15:30 Urine Protein Neg (Negative) 09/29/22 15:30 Urine Glucose (UA) Norm (Normal) 09/29/22 15:30 Urine Ketones Negative (Negative) 09/29/22 15:30 Urine Blood Neg (Negative) 09/29/22 15:30 Urine Nitrate Negative (Negative) 09/29/22 15:30 Urine Bilirubin Neg (Negative) 09/29/22 15:30 Urine Urobilinogen Norm mg/dL (Negative) 09/29/22 15:30 Ur Leukocyte Esterase Negative (Negative) 09/29/22 15:30 Ur Random Sodium < 10 mmol/L 10/01/22 15:14 Urine Creatinine 97 mg/dL (39-259) 10/01/22 15:14 Hep Bs Antigen Non-reactive (Nonreactive) 10/04/22 10:10 Hep Bs Antibody < 3.5 (11.5-1000) L 10/04/22 10:10 Hep B Core Total Ab Non-reactive (Nonreactive) 10/04/22 10:10 SARS-CoV-2 Ag (Rapid) negative (Negative) 10/12/22 06:16 Blood Type A Positive 10/04/22 09:40 Rho(D) Type Positive 10/04/22 09:40 Antibody Screen Negative 10/04/22 09:40 Vitals Last Vital Signs Temp 98.0 F 10/12/22 07:48 Pulse 65 10/12/22 09:20 Resp 18 10/12/22 09:20 BP 102/65 10/12/22 07:48 Pulse Ox 94 10/12/22 09:20 O2 Del Method Nasal Cannula 10/12/22 09:20 O2 Flow Rate 2 10/12/22 09:20 FiO2 28 10/02/22 20:00 Discharge Plan Discharge Patient Disposition: Xfer SNF Condition: Stable Prescriptions: New sodium bicarbonate 650 mg tablet 650 mg PO BID Qty: 60 0RF Renvela 800 mg tablet 800 mg PO TID Qty: 90 0RF Rx Instructions: must administer with a meal/food Vitamin D3 10 mcg (400 unit) tablet 800 unit PO DAILY Qty: 60 0RF omeprazole 40 mg capsule,delayed release(DR/EC) 40 mg PO BID Qty: 60 0RF Continued pentoxifylline 400 mg tablet extended release 400 mg PO TID omeprazole 20 mg capsule,delayed release(DR/EC) 20 mg PO BID vitamin E (dl, acetate) 1,000 unit capsule 1,000 unit PO DAILY cinnamon bark [Cinnamon] 500 mg capsule 500 mg PO BID PRN (Reason: unknown) atorvastatin 20 mg tablet 20 mg PO DAILY (DME) Dexcom G6 Sensor Device See Rx Instructions .Route Qty: 9 3RF Rx Instructions: change every 10 days (DME) Dexcom G6 Transmitter Device See Rx Instructions .Route Qty: 1 3RF Rx Instructions: change every 3 months oxycodone-acetaminophen 10-325 mg tablet 1 tab PO TID PRN (Reason: pain) 30 Days Qty: 90 0RF Rx Instructions: may fill 30 days after previous refill. (DME) diabetic shoes with 3 custom inserts See Rx Instructions .Route .MEDSUPPLY Qty: 1 0RF Rx Instructions: As directed (DME) Juzo compression wraps to right and left See Rx Instructions .Route .MEDSUPPLY Qty: 1 0RF Rx Instructions: As directed (DME) Dexcom G6 Gate Person Misc See Rx Instructions .Route Qty: 1 0RF Rx Instructions: Check BS 4-6 times a day. (DME) Juzo Lymphedema Wraps Bilaterally 2 pairs See Rx Instructions .Route .MEDSUPPLY Qty: 1 0RF Rx Instructions: As directed J P & O capsaicin 0.075 % Cream 1 applic TOPICAL TID PRN (Reason: Pain) Rx Instructions: do not wash area for at least 30 min after application Flomax 0.4 mg Capsule 0.4 mg PO QPM lidocaine 5 % Adhesive Patch,Medicated 1 patch TOPICAL DAILY PRN (Reason: Pain) Rx Instructions: leave on most painful area for up to 12 hrs then off for 12 hrs carbamide peroxide 6.5 % Drops See Rx Instructions .ROUTE .COMPLEX Rx Instructions: 2 DROPS BOTH EARS EVERY 4 WEEKS NEEDED FOR WAX BLOCKAGE clotrimazole 1 % Cream 1 applic TOPICAL DAILY PRN (Reason: SCALES ON FEET) guaifenesin 400 mg Tablet 400 mg PO TID lactulose 10 gram/15 mL Solution 15 ml PO DAILY PRN (Reason: Constipation) omega-3 fatty acids 1,000 mg Capsule 1,000 mg PO BID zinc acetate 50 mg (zinc) Capsule 50 mg PO DAILY levothyroxine 100 mcg Tablet 100 mcg PO QAM insulin aspart U-100 [Novolog FlexPen U-100 Insulin] 100 unit/mL (3 mL) Insulin Pen See Rx Instructions .ROUTE .COMPLEX Rx Instructions: sliding scale daily as needed for blood sugar acarbose 100 mg tablet 100 mg PO TID Rx Instructions: before meals (ac) carvedilol 3.125 mg Tablet 3.125 mg PO BID 30 Days Qty: 60 0RF Rx Instructions: (not started or gotten from in as of 09/29/22) Changed bumetanide 2 mg tablet 2 mg PO DAILY Qty: 30 0RF Levemir FlexTouch U-100 Insuln 100 unit/mL (3 mL) insulin pen 10 unit SUBCUT QAM Qty: 15 0RF Held Eliquis 5 mg tablet 5 mg PO BID Hold Instructions: Resume on 10/14/22. Discontinued metolazone 5 mg tablet 5 mg PO EVERY OTHER DAY gabapentin 800 mg tablet 800 mg PO TID testosterone 20.25 mg/1.25 gram (1.62 %) Gel In Metered-Dose Pump 2 pump TOPICAL DAILY Rx Instructions: apply 1 pump amount over max area of EACH upper arm and shoulder Discharge Orders: Discharge Order (Routine); Ordered 10/12/22 Ordered By: Katerine Padilla Referrals: [facility] [Other] [facility] [place] [Outside] Mary Lou Anaya MD [Primary Care Provider] - Discharge Diet: Cardiac Patient Instructions: Heart Failure (DC), Dialysis Diet (DC), Low-Sodium Diet (GEN), Hemodialysis (DC), Living With Your Heart Failure Monitoring System (GEN), CHF Stoplight, Opioid Safety, Post Heart Attack Stoplight Activity Restrictions/Additional Instructions: We can hold Eliquis for a few days had a bloody bowel movement however hemoglobin is 11 at the time of discharge. Hemodynamically stable Patient and family might lean towards palliative care in case he gets worse with further dialysis sessions Discharge Attestations Time Spent in Discharge Care*: greater than 30 min Status at Discharge: Cognitive status at discharge: cognitively intact , Behavioral status at discharge: cooperative , Quality Metrics Clinical Quality Measures [ No reported AMI, CVA or VTE this stay] Coding Level of Care Code Acute Code for Chg Fwd Diagnoses CHF (congestive heart failure) I50.9 Acute on chronic diastolic (congestive) heart failure I50.33 BRAIN (acute kidney injury) N17.9 CKD (chronic kidney disease) N18.9 COPD (chronic obstructive pulmonary disease) J44.9 OSITO (obstructive sleep apnea) G47.33
[2022-10-12 11:40] LABS: Glucose Point of Care 212 mg/dL (70-110)
[2022-10-12] MEDS: oxyCODONE-APAP 10-325 mg Tablet 1 TAB PO (15:24)
[2022-10-19 12:19] LABS: Blood Urea Nitrogen 82 mg/dL (8-23)
== END 2022-10-12 17:15 | disposition skilled nursing facility (03) | DRG 291 ==
LOC: ER 12:29 → CSU 12:40
PROVIDERS: Hospitalist; Internal Medicine; Surgery; Admitting Provider Internal Medicine; Emergency Provider Emergency Medicine; PCP Family Medicine; Visit Provider Internal Medicine
PROC: 30233K1 Transfusion of Nonautologous Frozen Plasma into Peripheral Vein, Percutaneous Approach (ICD-10-PCS; principal; 2022-10-04 14:05)
DX: I13.2 Hypertensive heart and chronic kidney disease with heart failure and with stage 5 chronic kidney disease, or end stage renal disease (principal); I50.23 Acute on chronic systolic (congestive) heart failure; N18.6 End stage renal disease; I48.20 Chronic atrial fibrillation, unspecified; R18.8 Other ascites; K92.1 Melena; E87.1 Hypo-osmolality and hyponatremia; E87.20 Acidosis, unspecified; N17.9 Acute kidney failure, unspecified; E11.22 Type 2 diabetes mellitus with diabetic chronic kidney disease; Z95.0 Presence of cardiac pacemaker; K74.60 Unspecified cirrhosis of liver; Z66 Do not resuscitate; Z79.891 Long term (current) use of opiate analgesic; Z79.4 Long term (current) use of insulin; E11.42 Type 2 diabetes mellitus with diabetic polyneuropathy; E11.51 Type 2 diabetes mellitus with diabetic peripheral angiopathy without gangrene; Z85.828 Personal history of other malignant neoplasm of skin; E78.5 Hyperlipidemia, unspecified; I42.8 Other cardiomyopathies; R77.8 Other specified abnormalities of plasma proteins; J44.9 Chronic obstructive pulmonary disease, unspecified; E87.6 Hypokalemia; G47.33 Obstructive sleep apnea (adult) (pediatric)
CPT/HCPCS: 36415; 36416; 36600; 49083; 51702; 71045; 76000; 76700; 77001; 80048; 80051; 80053; 81003; 82140; 82330; 82575; 82805; 82962; 83735; 83880; 84300; 84443; 84484; 85014; 85018; 85025; 85362; 85378; 85384; 85610; 85730; 86705; 86706; 86850; 86900; 86927; 87340; 87426; 90935; 92507; 92523; 92526; 92610; 93005; 94660; 96365; 96372; 96375; 96376; 97110; 97163; 97530; 99285; C1750; J0690; J1170; J1644; J1815; J1940; J2250; J2270; J2370; J2704; J3010; J3480; J3490; J7030; P9017; P9046; P9047; Q3014

== ENCOUNTER 2022-10-15 21:13 | Emergency (ER) | payer MEDICARE, OTHER, SELFPAY ==
[2022-10-15 21:27] VITALS: BP 105/65; PULSE 93; RESP 27; TEMP 36.6; O2SAT 97; BMI 36.9
[2022-10-15 21:49] LABS: Basophils # 0.1 10^3/uL (0.0-0.1); Basophils % 0.6 %; Eosinophils # 0.3 10^3/uL (0.0-0.8); Eosinophils % 2.7 %; Hematocrit 36.2 % (42.0-52.0); Hemoglobin 11.4 g/dL (11.7-16.6); Lymphocytes # 0.9 10^3/uL (0.8-4.8); Lymphocytes % 9.5 %; Mean Corpuscular HGB Conc 31.5 g/dL (30.0-36.0); Mean Corpuscular Volume 85.6 fl (80-94); Mean Platelet Volume 10.8 fL (7.4-10.4); Monocytes # 0.9 10^3/uL (0.2-0.9); Monocytes % 9.6 %; Neutrophils # 7.47 10^3/uL (1.8-7.7); Neutrophils % 76.8 %; Nucleated Red Blood Cells % 0 %; Platelet Count 171 10^3/cmm (130-400); Red Blood Count 4.23 10^6/uL (4.1-5.3); White Blood Count 9.7 10^3/uL (4.0-10.0)
[2022-10-15 22:04] LABS: Alanine Aminotransferase 15 U/L (0-41); Alkaline Phosphatase 232 U/L (40-130); Blood Urea Nitrogen 42 mg/dL (8-23); Calcium 7.9 mg/dL (8.5-10.5); Carbon Dioxide 29 mmol/L (22-29); Chloride 90 mmol/L (98-107); Globulin 3.4 g/dL (1.3-4.6); Glucose 178 mg/dL (65-115); Lipase 186 U/L (13-60); Magnesium 1.8 mg/dL (1.7-2.3); Osmolality Calculated 283 mOsm/kg (285-295); Phosphorus 2.7 mg/dL (2.5-4.5); Sodium 129 mmol/L (136-145); Total Bilirubin 1.5 mg/dL (0.15-1.2); Total Protein 6.4 g/dL (6.6-8.7)
[2022-10-15 22:07] VITALS: BP 104/65; PULSE 60; RESP 19; O2SAT 98
[2022-10-15 22:07] LABS: Aspartate Amino Transferase 45 U/L (0-40)
--- NOTE | 2022-10-15 22:21 | ED_ITS ---
HPI - GI Bleed General: Chief complaint: GI Bleed Stated complaint: ABD PAIN Time Seen by Provider: 10/15/22 21:18 History of Present Illness: Patient presents to the ER with bright red blood in his stool. Patient stated he had a history of this before I was in the hospital. Patient is in the hospital for worsening fluid retention and renal disease. Patient did have a dialysis catheter placed and underwent dialysis. Patient states he is due to have more fluid removed from his abdomen tomorrow. Patient is on Eliquis. Review of Systems General: Reports: 10 or more systems reviewed and unremarkable except in HPI and below PFSH ED PFSH: Medical History Abdominal pain Abnormal nuclear stress test Acute exacerbation of CHF (congestive heart failure) Acute kidney injury superimposed on chronic kidney disease Acute on chronic diastolic (congestive) heart failure Acute on chronic systolic heart failure BRAIN (acute kidney injury) Anasarca Asymptomatic microscopic hematuria Atherosclerotic heart disease Bradycardia Patient has a longstanding history of atrial fibrillation and bradycardia. Cardiomyopathy Non ischemic Cradiomyopathy. Chest pain CHF (congestive heart failure) Chronic atrial fibrillation Patient is on long-term oral anticoagulation. 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 He has mild to moderate diffuse peripheral arterial disease. Pain management contract signed Peripheral arterial disease Peripheral angiogram in October 2019 revealing no significant lesions. He was found to have mild to moderate diffuse disease in the left lower extremity. Peripheral neuropathy Pulmonary vascular congestion Sleep apnea SOB (shortness of breath) Patient is known to have COPD Varicose veins of bilateral lower extremities with other complications Venous insufficiency Venous ulcer of left leg Surgical History History of hip surgery Hx of artificial lens replacement Hx of cataract extraction Hx of toe surgery Hx of tonsillectomy Status post cardiac pacemaker procedure Family History Father , at age 57 Cancer Mother , at age 91 Cancer breast Other CAD (coronary artery disease) Diabetes Denies family history of Clotting disorder Dementia Chronic kidney disease (CKD) Suicide Anesthesia complication Bleeding disorder Lung disease Stroke Social History Smoking and tobacco status: never smoked Second hand smoke exposure: No Alcohol intake: never Substance/Drug Use: never Lives independently: Yes Household members: spouse Housing: House Marital status: Current occupational status: employed Physical Exam Const: COMMON NORMALS: no acute distress, average body habitus, patient oriented x3, no limitations, healthy appearing, alert and well nourished HENMT: COMMON NORMALS: normocephalic, atraumatic, hearing grossly normal bilaterally, external ears normal, Normal external nose present and moist oral mucous membranes HEAD & SCALP: normocephalic and atraumatic NOSE: Normal external nose present EXTERNAL EAR: Yes external ears normal Neck/C-Spine: COMMON NORMALS: full ROM, no lymphadenopathy, supple, no meningeal signs, no JVD and Thyroid normal THYROID: Thyroid normal Chest: COMMONS NORMALS: normal inspection of the chest and normal palpation of entire chest wall Resp: COMMON NORMALS: normal respiratory effort, No retractions, No use of accessory muscles and clear to auscultation bilaterally AUSCULTATION: clear to auscultation bilaterally Cardio: COMMON NORMALS: no JVD, regular rate, regular rhythm, S1 normal heart sound present, No gallops present (Cardio) and No clicks present (Cardio) RATE: regular rate RHYTHM: regular rhythm HEART SOUNDS: S1 normal heart sound present GI: COMMON NORMALS: Normal to inspection, nondistended, normoactive bowel sounds present, Soft to palpation, non-tender, No hepatosplenomegaly present and no masses PALPATION: Yes Soft to palpation and Yes No hepatosplenomegaly present OTHER: Fluid-filled rotund abdomen Neuro: COMMON NORMALS: patient oriented x3 SENSORIUM/ORIENTATION: Yes alert MENINGEAL SIGNS: Yes no meningeal signs Course Vital Signs: Vital signs: Vital Signs Temperature 97.9 F 10/15/22 21:27 Pulse Rate 60 10/15/22 22:07 Respiratory Rate 19 H 10/15/22 22:07 Blood Pressure 104/65 10/15/22 22:07 Pulse Oximetry 98 10/15/22 22:07 Oxygen Delivery Me thod Room Air 10/15/22 22:07 Oxygen Flow Rate 1 10/15/22 21:27 MDM - GI Bleed Medical Decision Making Patient presents to the ER with complaints of bright red blood per rectum. Patient is currently on Eliquis. Patient is a dialysis patient and the patient is getting fluid drawn off his abdomen tomorrow. Lab work was obtained which showed hemoglobin hematocrit of 11.4 and 36.2. Otherwise blood work looks good for the patient. Patient's has no complaints during his stay at the ER. Patient be discharged back to custodial to follow-up with his normal plans tomorrow for paracentesis. Differential Diagnosis Likely esophageal varices, gastritis, hematochezia, melena and anal fissure; Unlikely hemorrhoids, infectious diarrhea, Susi-Rea syndrome, Upper gastrointestinal hemorrhage or Lower gastrointestinal hemorrhage Medical Records I reviewed the patient's medical records. Lab Data I reviewed the patient's lab results. 10/15/22 21:00 10/15/22 21:00 Laboratory Results WBC 9.7 10^3/uL (4.0-10.0) 10/15/22 21:00 RBC 4.23 10^6/uL (4.1-5.3) 10/15/22 21:00 Hgb 11.4 g/dL (11.7-16.6) L 10/15/22 21:00 Hct 36.2 % (42.0-52.0) L 10/15/22 21:00 MCV 85.6 fl (80-94) 10/15/22 21:00 MCH 27.0 pg (28.0-34.0) L 10/15/22 21:00 MCHC 31.5 g/dL (30.0-36.0) 10/15/22 21:00 RDW 18.0 % (12.1-15.1) H 10/15/22 21:00 Plt Count 171 10^3/cmm (130-400) 10/15/22 21:00 MPV 10.8 fL (7.4-10.4) H 10/15/22 21:00 Neut % (Auto) 76.8 % 10/15/22 21:00 Lymph % (Auto) 9.5 % 10/15/22 21:00 [place] % (Auto) 9.6 % 10/15/22 21:00 Eos % (Auto) 2.7 % 10/15/22 21:00 Baso % (Auto) 0.6 % 10/15/22 21:00 Neut # (Auto) 7.47 10^3/uL (1.8-7.7) 10/15/22 21:00 Lymph # (Auto) 0.9 10^3/uL (0.8-4.8) 10/15/22 21:00 [place] # (Auto) 0.9 10^3/uL (0.2-0.9) 10/15/22 21:00 Eos # (Auto) 0.3 10^3/uL (0.0-0.8) 10/15/22 21:00 Baso # (Auto) 0.1 10^3/uL (0.0-0.1) 10/15/22 21:00 Nucleated RBC % (auto) 0 % 10/15/22 21:00 Nucleated RBCs # 0.0 /100WBC 10/15/22 21:00 Sodium 129 mmol/L (136-145) L 10/15/22 21:00 Potassium 5.0 mmol/L (3.5-5.1) 10/15/22 21:00 Chloride 90 mmol/L (98-107) L 10/15/22 21:00 Carbon Dioxide 29 mmol/L (22-29) 10/15/22 21:00 Anion Gap 15.0 (5-19) 10/15/22 21:00 BUN 42 mg/dL (8-23) H 10/15/22 21:00 Creatinine 1.7 mg/dL (0.7-1.2) H 10/15/22 21:00 GFR Calculation Not Reportable 10/15/22 21:00 Glucose 178 mg/dL (65-115) H 10/15/22 21:00 Calculated Osmolality 283 mOsm/kg (285-295) L 10/15/22 21:00 Calcium 7.9 mg/dL (8.5-10.5) L 10/15/22 21:00 Phosphorus 2.7 mg/dL (2.5-4.5) 10/15/22 21:00 Magnesium 1.8 mg/dL (1.7-2.3) 10/15/22 21:00 Total Bilirubin 1.5 mg/dL (0.15-1.2) H 10/15/22 21:00 AST 45 U/L (0-40) H 10/15/22 21:00 ALT 15 U/L (0-41) 10/15/22 21:00 Alkaline Phosphatase 232 U/L (40-130) H 10/15/22 21:00 Ammonia 47 umol/L (16-60) 10/15/22 22:06 Total Protein 6.4 g/dL (6.6-8.7) L 10/15/22 21:00 Albumin 3.0 g/dL (3.5-5.2) L 10/15/22 21:00 Globulin 3.4 g/dL (1.3-4.6) 10/15/22 21:00 Lipase 186 U/L (13-60) H 10/15/22 21:00 Discharge Plan Discharge Patient Disposition: Home Clinical Impression: Hematochezia, Chronic anticoagulation Condition: Stable Prescriptions: No Action pentoxifylline 400 mg tablet extended release 400 mg PO TID omeprazole 20 mg capsule,delayed release(DR/EC) 20 mg PO BID vitamin E (dl, acetate) 1,000 unit capsule 1,000 unit PO DAILY Eliquis 5 mg tablet 5 mg PO BID Hold Instructions: Resume on 10/14/22. cinnamon bark [Cinnamon] 500 mg capsule 500 mg PO BID PRN (Reason: unknown) atorvastatin 20 mg tablet 20 mg PO DAILY (DME) Dexcom G6 Sensor Device See Rx Instructions .Route Qty: 9 3RF Rx Instructions: change every 10 days (DME) Dexcom G6 Transmitter Device See Rx Instructions .Route Qty: 1 3RF Rx Instructions: change every 3 months oxycodone-acetaminophen 10-325 mg tablet 1 tab PO TID PRN (Reason: pain) 30 Days Qty: 90 0RF Rx Instructions: may fill 30 days after previous refill. (DME) diabetic shoes with 3 custom inserts See Rx Instructions .Route .MEDSUPPLY Qty: 1 0RF Rx Instructions: As directed (DME) Juzo compression wraps to right and left See Rx Instructions .Route .MEDSUPPLY Qty: 1 0RF Rx Instructions: As directed (DME) Dexcom G6 [employer] Facer Misc See Rx Instructions .Route Qty: 1 0RF Rx Instructions: Check BS 4-6 times a day. (DME) Juzo Lymphedema Wraps Bilaterally 2 pairs See Rx Instructions .Route .MEDSUPPLY Qty: 1 0RF Rx Instructions: As directed J P & O capsaicin 0.075 % Cream 1 applic TOPICAL TID PRN (Reason: Pain) Rx Instructions: do not wash area for at least 30 min after application Flomax 0.4 mg Capsule 0.4 mg PO QPM lidocaine 5 % Adhesive Patch,Medicated 1 patch TOPICAL DAILY PRN (Reason: Pain) Rx Instructions: leave on most painful area for up to 12 hrs then off for 12 hrs carbamide peroxide 6.5 % Drops See Rx Instructions .ROUTE .COMPLEX Rx Instructions: 2 DROPS BOTH EARS EVERY 4 WEEKS NEEDED FOR WAX BLOCKAGE clotrimazole 1 % Cream 1 applic TOPICAL DAILY PRN (Reason: SCALES ON FEET) guaifenesin 400 mg Tablet 400 mg PO TID lactulose 10 gram/15 mL Solution 15 ml PO DAILY PRN (Reason: Constipation) bumetanide 2 mg tablet 2 mg PO DAILY Qty: 30 0RF Levemir FlexTouch U-100 Insuln 100 unit/mL (3 mL) insulin pen 10 unit SUBCUT QAM Qty: 15 0RF sodium bicarbonate 650 mg tablet 650 mg PO BID Qty: 60 0RF Renvela 800 mg tablet 800 mg PO TID Qty: 90 0RF Rx Instructions: must administer with a meal/food Vitamin D3 10 mcg (400 unit) tablet 800 unit PO DAILY Qty: 60 0RF omeprazole 40 mg capsule,delayed release(DR/EC) 40 mg PO BID Qty: 60 0RF omega-3 fatty acids 1,000 mg Capsule 1,000 mg PO BID zinc acetate 50 mg (zinc) Capsule 50 mg PO DAILY levothyroxine 100 mcg Tablet 100 mcg PO QAM insulin aspart U-100 [Novolog FlexPen U-100 Insulin] 100 unit/mL (3 mL) Insulin Pen See Rx Instructions .ROUTE .COMPLEX Rx Instructions: sliding scale daily as needed for blood sugar acarbose 100 mg tablet 100 mg PO TID Rx Instructions: before meals (ac) carvedilol 3.125 mg Tablet 3.125 mg PO BID 30 Days Qty: 60 0RF Rx Instructions: (not started or gotten from [facility] as of [facility]) Discharge Orders: Discharge ED (Routine); Ordered 10/15/22 Ordered By: Paul Gar Referrals: Mary Lou Anaya MD [Primary Care Provider] - Patient Instructions: Rectal Bleeding (ED) Activity Restrictions/Additional Instructions: Continue current plans to have your abdomen drained of fluid tomorrow. Please follow-up with your primary care doctor in the next 7 days for further evaluation treatment and work-up for your rectal bleeding. If your rectal bleeding worsens or gets symptomatic such as lightheaded dizzy tachycardic please feel free to return to the ER for further evaluation. Coding Level of Care Code ED Workforce Advisor for Myles Boo
[2022-10-15 22:40] LABS: Ammonia 47 umol/L (16-60)
== END 2022-10-15 23:36 | disposition home or self-care (01) ==
PROVIDERS: Emergency Provider Emergency Medicine; PCP Family Medicine
DX: K92.1 Melena (principal); Z79.01 Long term (current) use of anticoagulants; Z79.4 Long term (current) use of insulin; I13.2 Hypertensive heart and chronic kidney disease with heart failure and with stage 5 chronic kidney disease, or end stage renal disease; E11.22 Type 2 diabetes mellitus with diabetic chronic kidney disease; N18.6 End stage renal disease; I50.9 Heart failure, unspecified; J44.9 Chronic obstructive pulmonary disease, unspecified; Z95.0 Presence of cardiac pacemaker; E78.5 Hyperlipidemia, unspecified; I25.2 Old myocardial infarction
CPT/HCPCS: 36415; 80053; 82140; 83690; 83735; 84100; 85025; 99283

== ENCOUNTER 2022-10-27 09:47 | Inpatient (IN) | payer OTHER, SELFPAY ==
[2022-10-27] VITALS (13 sets, daily range): BP systolic 103–126; BP diastolic 63–75; PULSE 60–77; RESP 18–22; TEMP 36.4–36.7; O2SAT 95–97; BMI 34.2
[2022-10-27 10:08] LABS: Basophils # 0.1 10^3/uL (0.0-0.1); Basophils % 0.5 %; Eosinophils # 0.2 10^3/uL (0.0-0.8); Eosinophils % 2.1 %; Hemoglobin 11.1 g/dL (11.7-16.6); Lymphocytes % 9.4 %; Mean Corpuscular HGB Conc 31.7 g/dL (30.0-36.0); Mean Corpuscular Hemoglobin 26.6 pg (28.0-34.0); Mean Corpuscular Volume 83.7 fl (80-94); Monocytes # 0.7 10^3/uL (0.2-0.9); Monocytes % 6.7 %; Neutrophils # 8.83 10^3/uL (1.8-7.7); Nucleated Red Blood Cells % 0.3 %; Platelet Count 227 10^3/cmm (130-400); Red Blood Count 4.18 10^6/uL (4.1-5.3); Red Cell Distribution Width 19.9 % (12.1-15.1)
--- NOTE | 2022-10-27 10:19 | USCV_ITS ---
Refugio Amanda Age: 77 Gender: M : 1945 Exam Date: 10/27/2022 10:48 Ordering Phys: Benedict Lorenzana DO Technologist: CT Exam Location: [facility] [place] Indication: cellulitis PROCEDURES: Venous duplex imaging was performed in bilateral lower extremities. Bilaterally, the common femoral, superficial femoral, profunda femoral, popliteal, posterior tibial, greater saphenous veins, and the peroneal trunk were identified and interrogated in the standard fashion. These veins were found to be easily compressible with spontaneous blood flow. No evidence of insufficiency or thrombus noted. FINDINGS: no dvt identified, limited exam CONCLUSIONS No evidence of right lower extremity DVT. No evidence of left lower extremity DVT. Limited exam. Unable to tolerate compression and augmentation Fito Sigala MD (Electronically Signed) Final Date: 27 October 2022 17:08 S
--- NOTE | 2022-10-27 10:20 | XR_ITS ---
WS: [id number] Exam: XR chest 1V portable [id number] Date/Time of Exam: 10/27/2022 10:20 AM Reason For Exam: dyspnea/cough Comparison 10/04/2022. The lungs appear to be clear and fully inflated. Cardiac enlargement unchanged. No obvious pleural ef fusion. Degenerative change of both shoulders. Remaining visualized bony elements are intact. A right -sided double-lumen central line appears to extend into the right atrium. An ICD overlies the left ch est. Additional monitoring leads superimpose the chest. XR/XR chest 1V portable [id number] IMPRESSION: 1. No acute cardiopulmonary finding. Cardiac enlargement unchanged.
--- NOTE | 2022-10-27 10:23 | W.ED.EXTPRO ---
HPI - Extremity Problem General: Chief complaint: Extremity Injury, Lower Stated complaint: celluitis Time Seen by Provider: 10/27/22 09:56 Source: patient Mode of arrival: EMS History of Present Illness: 77-year-old male who presents to the emergency room with complaints of swelling and pain in the lower extremities. Lower extremities bilaterally have been red and inflamed with some weeping and skin tear at the top dorsum of the left foot. He is chronically on 3 L by nasal cannula he recently was started on dialysis. He has a LifeVest on as well. He states he generally is feeling very poorly he was given oxycodone for pain this morning at the long-term. He is an insulin-dependent diabetic as well. He has been getting dialysis on Tuesdays and he did receive his dialysis yesterday we confirmed with long-term. MD Complaint: extremity pain and extremity swelling Pain Consistency: constant Location: left, right and lower extremity Quality: aching Relieving factors: nothing Exacerbating factors: nothing and palpation Associated symptoms: Reports no associated symptoms; Deny chest pain, fever(s) or rash Review of Systems Const: Reports: change in appetite, fatigue and malaise; Denies: fever(s) or chills ENMT: Denies: throat pain, ear or mastoid pain, nasal discharge or nasal congestion Card: Reports: edema; Denies: chest pain Resp: Denies: dyspnea, productive cough or non-productive cough GI: Denies: abdominal pain, nausea, vomiting, hematemesis, coffee ground emesis, diarrhea, constipation, bloating, hematochezia or melena : Denies: flank pain, dysuria, urinary frequency or urinary urgency Skin/Breast: Denies: rash or pruritus PFSH ED PFSH: Medical History Abdominal pain Abnormal nuclear stress test Acute exacerbation of CHF (congestive heart failure) Acute kidney injury superimposed on chronic kidney disease Acute on chronic diastolic (congestive) heart failure Acute on chronic systolic heart failure BRAIN (acute kidney injury) Anasarca Asymptomatic microscopic hematuria Atherosclerotic heart disease Bradycardia Patient has a longstanding history of atrial fibrillation and bradycardia. Cardiomyopathy Non ischemic Cradiomyopathy. Chest pain CHF (congestive heart failure) Chronic atrial fibrillation Patient is on long-term oral anticoagulation. 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 He has mild to moderate diffuse peripheral arterial disease. Pain management contract signed Peripheral arterial disease Peripheral angiogram in October 2019 revealing no significant lesions. He was found to have mild to moderate diffuse disease in the left lower extremity. Peripheral neuropathy Pulmonary vascular congestion Sleep apnea SOB (shortness of breath) Patient is known to have COPD Varicose veins of bilateral lower extremities with other complications Venous insufficiency Venous ulcer of left leg Surgical History History of hip surgery Hx of artificial lens replacement Hx of cataract extraction Hx of toe surgery Hx of tonsillectomy Status post cardiac pacemaker procedure Family History Father , at age 57 Cancer Mother , at age 91 Cancer breast Other CAD (coronary artery disease) Diabetes Denies family history of Clotting disorder Dementia Chronic kidney disease (CKD) Suicide Anesthesia complication Bleeding disorder Lung disease Stroke Social History Smoking and tobacco status: never smoked Second hand smoke exposure: No Alcohol intake: never Substance/Drug Use: never Lives independently: Yes Household members: spouse Housing: House Marital status: Current occupational status: employed Physical Exam Const: GENERAL APPEARANCE: cooperative and comfortable ORIENTATION/CONSCIOUSNESS: Yes awake, Yes oriented to person, Yes oriented to place and Yes oriented to time HENMT: COMMON NORMALS: normocephalic, atraumatic and hearing grossly normal bilaterally HEAD & SCALP: normocephalic and atraumatic Chest: OTHER: Tunneled dialysis catheter in the right subclavian area. Resp: COMMON NORMALS: normal respiratory effort, No retractions, No use of accessory muscles and clear to auscultation bilaterally AUSCULTATION: clear to auscultation bilaterally Cardio: COMMON NORMALS: regular rate, regular rhythm and No murmurs present (Cardio) RATE: regular rate RHYTHM: regular rhythm GI: COMMON NORMALS: Soft to palpation and No hepatosplenomegaly present AUSCULTATION: Yes normoactive bowel sounds PALPATION: Yes Soft to palpation, No Tenderness to palpation present (GI), No Guarding due to palpation present (GI) and Yes No hepatosplenomegaly present Extremity: OTHER: Bilateral redness and inflammation of the lower extremities to the level of the knees. There is chronic edematous changes there is some skin tears open abrasions in the lower extremities is large can turn the dorsum of the left foot all of which are weeping lymphatic fluid there is no obvious abscess. They are tender to the touch. Neuro: SENSORIUM/ORIENTATION: Yes oriented to person, Yes oriented to place and Yes oriented to time Skin: COMMON NORMALS: no rashes or lesions noted GENERAL SKIN EXAM: no rashes or lesions noted Course Vital Signs: Vital signs: Vital Signs Temperature 97.8 F 10/27/22 09:48 Pulse Rate 73 10/27/22 13:28 Respiratory Rate 22 H 10/27/22 13:28 Blood Pressure 126/71 10/27/22 13:28 Pulse Oximetry 95 10/27/22 13:28 Oxygen Delivery Me thod Nasal Cannula 10/27/22 12:38 Oxygen Flow Rate 3 10/27/22 12:38 MDM - Extremity (Nontraumatic) Medical Decision Making Patient has acute cellulitis previous arterial blood flow surprisingly good when compared to a study done on the runoff in August 2019. He did mention he had some kind of intervention with Dr. Martinez but he was unable to give any specific details. He does have severe cardiomyopathy also some hyperkalemia his hyperkalemia is treated in the ER we will consult nephrology will admit discussed with hospitalist orders written Medical Records I reviewed the patient's medical records. Lab Data I reviewed the patient's lab results. 10/27/22 09:58 10/27/22 13:20 Radiology Impressions Chest X-Ray 10/27/22 10:20 IMPRESSION: 1. No acute cardiopulmonary finding. Cardiac enlargement unchanged. Duplex Scan Lower Extremity Artery 10/27/22 11:38 IMPRESSION: No stenosis or occlusion. The popliteal segment could not be imaged. Laboratory Results WBC 11.0 10^3/uL (4.0-10.0) H 10/27/22 09:58 RBC 4.18 10^6/uL (4.1-5.3) 10/27/22 09:58 Hgb 11.1 g/dL (11.7-16.6) L 10/27/22 09:58 Hct 35.0 % (42.0-52.0) L 10/27/22 09:58 MCV 83.7 fl (80-94) 10/27/22 09:58 MCH 26.6 pg (28.0-34.0) L 10/27/22 09:58 MCHC 31.7 g/dL (30.0-36.0) 10/27/22 09:58 RDW 19.9 % (12.1-15.1) H 10/27/22 09:58 Plt Count 227 10^3/cmm (130-400) 10/27/22 09:58 MPV 11.0 fL (7.4-10.4) H 10/27/22 09:58 Neut % (Auto) 80.0 % 10/27/22 09:58 Lymph % (Auto) 9.4 % 10/27/22 09:58 [place] % (Auto) 6.7 % 10/27/22 09:58 Eos % (Auto) 2.1 % 10/27/22 09:58 Baso % (Auto) 0.5 % 10/27/22 09:58 Neut # (Auto) 8.83 10^3/uL (1.8-7.7) H 10/27/22 09:58 Lymph # (Auto) 1.0 10^3/uL (0.8-4.8) 10/27/22 09:58 [place] # (Auto) 0.7 10^3/uL (0.2-0.9) 10/27/22 09:58 Eos # (Auto) 0.2 10^3/uL (0.0-0.8) 10/27/22 09:58 Baso # (Auto) 0.1 10^3/uL (0.0-0.1) 10/27/22 09:58 Nucleated RBC % (auto) 0.3 % 10/27/22 09:58 Nucleated RBCs # 0.0 /100WBC 10/27/22 09:58 Sodium Cancelled 10/27/22 12:33 Potassium Cancelled 10/27/22 12:33 Chloride Cancelled 10/27/22 12:33 Carbon Dioxide Cancelled 10/27/22 12:33 Anion Gap Cancelled 10/27/22 12:33 BUN Cancelled 10/27/22 12:33 Creatinine Cancelled 10/27/22 12:33 GFR Calculation Cancelled 10/27/22 12:33 Glucose Cancelled 10/27/22 12:33 Calculated Osmolality Cancelled 10/27/22 12:33 Lactic Acid 2.6 mmol/L (0.5-2.2) H 10/27/22 10:05 Lactic Acid (Sepsis) 2.3 mmol/L (0.5-2.2) H 10/27/22 12:37 Calcium Cancelled 10/27/22 12:33 Urine Color Dark yellow (Yellow) 10/27/22 10:00 Urine Appearance Cloudy (CLEAR) A 10/27/22 10:00 Urine pH 5 (5-7) 10/27/22 10:00 Ur Specific [place] 1.020 (1.005-1.030) 10/27/22 10:00 Urine Protein 1+ (Negative) H 10/27/22 10:00 Urine Glucose (UA) Norm (Normal) 10/27/22 10:00 Urine Ketones 1+ (Negative) H 10/27/22 10:00 Urine Blood 3+ (Negative) H 10/27/22 10:00 Urine Nitrate Negative (Negative) 10/27/22 10:00 Urine Bilirubin 1+ (Negative) H 10/27/22 10:00 Urine Urobilinogen 4 mg/dL (Negative) H 10/27/22 10:00 Ur Leukocyte Esterase 2+ (Negative) H 10/27/22 10:00 Urine RBC 10-15 /hpf (0-2) H 10/27/22 10:00 Urine WBC 40-55 /hpf (0-5) H 10/27/22 10:00 Ur Squamous Epith Cells 0-4 /hpf (0-5) H 10/27/22 10:00 Amorphous Sediment Not Reportable 10/27/22 10:00 Urine Bacteria 1+ /hpf (NONE) H 10/27/22 10:00 Urine Mucus 2+ /hpf 10/27/22 10:00 Urine Yeast 3+ /hpf H 10/27/22 10:00 Discharge Plan Discharge Patient Disposition: Admitted As Inpatient Admit Provider: Artemio Lujan Clinical Impression: Cellulitis, Skin tear, Hyponatremia, Hyperkalemia, Cardiomyopathy Condition: Stable Coding Level of Care Code ED Supervisor Transcribing Operators for Myles Boo
[2022-10-27 10:27] LABS: Anion Gap 18.2 (5-19); Blood Urea Nitrogen 38 mg/dL (8-23); Calcium 8.1 mg/dL (8.5-10.5); Carbon Dioxide 26 mmol/L (22-29); Chloride 89 mmol/L (98-107); Glucose 212 mg/dL (65-115); Osmolality Calculated 279 mOsm/kg (285-295); Potassium 6.2 mmol/L (3.5-5.1); Sodium 127 mmol/L (136-145)
[2022-10-27 10:35] LABS: Urine Appearance Cloudy (CLEAR); Urine Color Dark Yellow (Yellow); pH Urine 5 (5-7)
[2022-10-27 10:36] LABS: Add Urine Microscopic? YES; Bilirubin Urine 1+ (Negative); Blood Urine 3+ (Negative); Glucose Urine UA Norm (Normal); Ketones Urine 1+ (Negative); Leukocyte Esterase Urine 2+ (Negative); Nitrate Urine Negative (Negative); Protein Urine 1+ (Negative); Urobilinogen Urine 4 mg/dL (Negative)
[2022-10-27 10:44] LABS: Add Urine Culture? Yes; Bacteria Urine 1+ /hpf; Mucus Urine 2+ /hpf; Other Sediment, Urine BUD YEAST W/HYPHAE; Squamous Epithelial Cell Urine 0-4 /hpf (0-5); WBC Urine 40-55 /hpf (0-5)
[2022-10-27 10:47] LABS: Lactic Sepsis W/Reflex 2.6 mmol/L (0.5-2.2)
--- NOTE | 2022-10-27 10:54 | PC.NURSE ---
PT HAD INDWELLING CATH PLACED PRIOR TO ARRIVAL. PROVIDER ASKED FOR REMOVAL AND ANOTHER PLACED. PATIENT TOLERATED PROCEDURE WELL.
--- NOTE | 2022-10-27 11:38 | USR_ITS ---
PROCEDURE INFORMATION: Exam: US Duplex Right Lower Extremity Arteries Or Arterial Bypass Grafts Exam date and time: 10/27/2022 12:39 PM Age: 77 years old Clinical indication: Pain and condition or disease; Other: Cellulitis; Leg, lower; Bilateral; Additional info: Le cellulisitis TECHNIQUE: Imaging protocol: Right Real-time duplex scan of the arteries or arterial bypass grafts of the right lower extremity with 2-D vu scale, color Doppler flow and spectral waveform analysis. Images documented and saved. COMPARISON: No relevant prior studies available. FINDINGS: Right common femoral artery: No occlusion or significant stenosis. Normal waveform. No pseudoaneurysm in the inguinal region. Right superficial femoral artery: No occlusion or significant stenosis. Normal waveform. Right popliteal artery: Unable to visualize apparently due to the patient's body habitus and immobility. Right calf/foot arteries: No occlusion or significant stenosis in the posterior tibial artery. Normal waveforms. Dorsalis pedis artery is patent. The anterior tibial and peroneal arteries were either not visualized or not imaged. Soft tissues: No hematoma or [place]. US/[place] [id number] IMPRESSION: No stenosis or occlusion. The popliteal segment could not be imaged.
--- NOTE | 2022-10-27 11:57 | PC.PHAR ---
PT STATES TAKES CARE OF ALL MEDS. WAITING FOR HER TO GET HERE FOR CONFIRMATION OF OTC'S AND PRIORITY MEDICATIONS SPECIFICALLY INSULINS.
[2022-10-27 12:02] LABS: Reflex Lactate Order REFLEX LACTIC ORDERD
[2022-10-27] MEDS: albuterol 2.5 mg/3 mL Neb 10 MG INHALATION (12:06)
[2022-10-27] MEDS: calcium chloride 10% Syr 10 mL 1 GM IVP (12:13)
[2022-10-27] MEDS: FUROsemide 10 mg/mL SDV 10mL 60 MG IVP (12:16)
[2022-10-27] MEDS: sodium bicarbonate 1 mEq/mL SDV 50mL 100 MEQ IVP (12:19)
[2022-10-27] MEDS: sodium polystyrene sulfonate 15 gm/60 mL Btl PO (12:35)
[2022-10-27] MEDS: meropenem 1,000 MG in sodium chloride 0.9% (plus) 50 ML 100 MG IV (12:57)
[2022-10-27 13:03] LABS: Lactic Acid level (Lactate) 2.3 mmol/L (0.5-2.2)
--- NOTE | 2022-10-27 14:06 | PM.HP ---
Providers/Chief Complaint Admitting Physician: Artemio Lujan Primary Care Provider: Mary Lou Anaya MD Chief Complaint: celluitis History of Present Illness Pleasant 77-year-old gentleman with recent hospitalization with cardiomyopathy low EF 20%, has a LifeVest in place, with renal failure on hemodialysis TTS, last dialysis on Tuesday, previously with anasarca, but overall with improvement of edema, overall poor functional capacity, multiple additional comorbidities was discharged to snf after recent hospitalization. At snf for about a week developed some erythema of the right lower extremity as well as a skin tear on the dorsal right foot with some weeping from the tear. As symptoms have gotten worse in the last couple days he was sent over to ER for evaluation. He does have history of peripheral arterial disease as well with CTA aorta with runoff back in 2019 with heavily calcified diminutive lower leg arteries with poor intermittent three-vessel runoff to the ankles worse on the left. Right lower extremity has been tender, erythematous, with some swelling. He is able to move the foot and toes. He denies fever. In ER noted anion gap acidosis 18.2, lactic acid modulation 2.6. Sodium lower than usual 127. Hyperkalemia 6.2. UA with 2+ LE, negative nitrite, 10-15 RBC, 40-55 WBC. 0-4 SEC. 1+ bacteria. 3+ yeast. He came in with an indwelling Douglas catheter which was replaced in ER. Review of Systems Const: Denies: fever(s), chills, body aches or malaise ENMT: Denies: throat pain Card: Denies: chest pain, edema, pre-syncope or dyspnea on exertion Resp: Denies: dyspnea, productive cough, change in phlegm color or hemoptysis GI: Denies: abdominal pain, nausea, vomiting, diarrhea, constipation, hematochezia or melena : Denies: flank pain, difficulty urinating, urinary frequency or hematuria Musc: Denies: back pain, joint swelling or joint redness Skin/Breast: Reports: erythema and skin tenderness Neuro: Denies: confusion Medications/Allergies Home Medications Medication Instructions Recorded Confirmed Last Taken Type apixaban 5 mg tablet (Eliquis) 5 mg PO BID 04/09/19 10/27/22 09/29/22 History omeprazole 20 mg capsule,delayed 20 mg PO BID 04/09/19 10/27/22 09/29/22 History release pentoxifylline 400 mg 400 mg PO TID 04/12/19 10/27/22 09/29/22 08:30 History tablet,extended release blood-glucose meter,continuous #1 ea 09/09/21 10/27/22 Unknown Rx (Dexcom G6 Provider Contracting Consultant) diabetic shoes with 3 custom #1 ea 05/20/22 10/27/22 Unknown Rx inserts blood-glucose sensor (Dexcom G6 #9 ea 07/28/22 10/27/22 Unknown Rx Sensor device) blood-glucose transmitter (Dexcom #1 ea 07/28/22 10/27/22 Unknown Rx G6 Transmitter device) Juzo Lymphedema Wraps Bilaterally #1 ea 08/12/22 10/27/22 Unknown Rx 2 pairs Juzo compression wraps to right #1 ea 08/16/22 10/27/22 Unknown Rx and left insulin aspart U-100 100 unit/mL See Rx Instructions .Route .COMPLEX 09/15/22 10/27/22 Unknown History (3 mL) subcutaneous pen (Novolog FlexPen U-100 Insulin aspart) levothyroxine 100 mcg tablet 100 mcg PO QAM 09/15/22 10/27/22 09/29/22 History capsaicin 0.075 % topical cream 1 applic topical TID PRN Pain 09/29/22 10/27/22 Unknown History carbamide peroxide 6.5 % ear drops See Rx Instructions .Route .COMPLEX 09/29/22 10/27/22 Unknown History clotrimazole 1 % topical cream 1 applic topical DAILY PRN SCALES 09/29/22 10/27/22 Unknown History ON FEET guaifenesin 400 mg tablet 400 mg PO TID 09/29/22 10/27/22 09/29/22 History lactulose 10 gram/15 mL oral 15 ml PO DAILY PRN Constipation 09/29/22 10/27/22 09/28/22 History solution lidocaine 5 % topical patch 1 patch topical DAILY PRN Pain 09/29/22 10/27/22 Unknown History tamsulosin 0.4 mg capsule (Flomax) 0.4 mg PO QPM 09/29/22 10/27/22 09/28/22 History insulin detemir U-100 100 unit/mL 10 unit (0.1 mL) SUBCUT QAM #15 mL 10/11/22 10/27/22 09/29/22 Rx (3 mL) subcutaneous pen (Levemir 30 units FlexTouch U-100 Insulin) sevelamer carbonate 800 mg tablet 800 mg PO TID w meal #90 tabs 10/11/22 10/27/22 Unknown Rx (Renvela) atorvastatin 40 mg tablet 20 mg PO DAILY 10/27/22 10/27/22 Unknown History bumetanide 2 mg tablet 2 mg PO TID PRN FLUID 10/27/22 10/27/22 Unknown History gabapentin 800 mg tablet 800 mg PO TID 10/27/22 10/27/22 Unknown History metolazone 5 mg tablet See Rx Instructions .Route .COMPLEX 10/27/22 10/27/22 Unknown History testosterone 1.62 % (40.5 mg/2.5 See Rx Instructions .Route .COMPLEX 10/27/22 10/27/22 Unknown History gram) transdermal gel packet Allergies Allergy/AdvReac Type Severity Reaction Status Date / Time lisinopril Allergy Unknown Verified 10/27/22 09:55 PFSH Acute PFSH: Medical History Abdominal pain Abnormal nuclear stress test Acute exacerbation of CHF (congestive heart failure) Acute kidney injury superimposed on chronic kidney disease Acute on chronic diastolic (congestive) heart failure Acute on chronic systolic heart failure BRAIN (acute kidney injury) Anasarca Asymptomatic microscopic hematuria Atherosclerotic heart disease Bradycardia Patient has a longstanding history of atrial fibrillation and bradycardia. Cardiomyopathy Non ischemic Cradiomyopathy. Chest pain CHF (congestive heart failure) Chronic atrial fibrillation Patient is on long-term oral anticoagulation. 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 He has mild to moderate diffuse peripheral arterial disease. Pain management contract signed Peripheral arterial disease Peripheral angiogram in October 2019 revealing no significant lesions. He was found to have mild to moderate diffuse disease in the left lower extremity. Peripheral neuropathy Pulmonary vascular congestion Sleep apnea SOB (shortness of breath) Patient is known to have COPD Varicose veins of bilateral lower extremities with other complications Venous insufficiency Venous ulcer of left leg Surgical History History of hip surgery Hx of artificial lens replacement Hx of cataract extraction Hx of toe surgery Hx of tonsillectomy Status post cardiac pacemaker procedure Family History Father , at age 57 Cancer Mother , at age 91 Cancer breast Other CAD (coronary artery disease) Diabetes Denies family history of Clotting disorder Dementia Chronic kidney disease (CKD) Suicide Anesthesia complication Bleeding disorder Lung disease Stroke Social History Smoking and tobacco status: never smoked Second hand smoke exposure: No Alcohol intake: never Substance/Drug Use: never Lives independently: Yes Household members: spouse Housing: House Marital status: Current occupational status: employed Vitals/I&O/Wt Last Vital Signs Temp 97.8 F 10/27/22 09:48 Pulse 73 10/27/22 13:28 Resp 22 H 10/27/22 13:28 BP 126/71 10/27/22 13:28 Pulse Ox 95 10/27/22 13:28 O2 Del Method Nasal Cannula 10/27/22 12:38 O2 Flow Rate 3 10/27/22 12:38 10/26/22 10/27/22 10/27/22 22:59 06:59 14:59 Intake Total 50 / 50 Balance 50 / 50 Weight last 48 hrs Weight 117.934 kg Physical Exam Const: COMMON NORMALS: patient oriented x3 and alert GENERAL APPEARANCE: cooperative ORIENTATION/CONSCIOUSNESS: Yes awake HENMT: COMMON NORMALS: oropharynx normal Neck/C-Spine: COMMON NORMALS: no JVD Resp: COMMON NORMALS: normal respiratory effort and clear to auscultation bilaterally AUSCULTATION: clear to auscultation bilaterally Cardio: COMMON NORMALS: no JVD, regular rhythm, S1 normal heart sound present, S2 normal heart sound present and No murmurs present (Cardio) RHYTHM: regular rhythm HEART SOUNDS: S1 normal heart sound present and S2 normal heart sound present GI: COMMON NORMALS: Normal to inspection, nondistended, normoactive bowel sounds present, Soft to palpation and non-tender PALPATION: Yes Soft to palpation Extremity: COMMON NORMALS: no joint enlargement GENERAL: Yes edema (1+) OTHER: Edema worse on feet. Neuro: COMMON NORMALS: patient oriented x3 and moves all extremities SENSORIUM/ORIENTATION: Yes alert Skin: OTHER: Redness below R knee Large weeping skin tear dorsal R foot. No purulence. 2cm longitudinal abrasion with purulence lower anterolat R tibia. 1cm abrasion opposite to it on anteromedial R tibia Urinary Catheter Management: Douglas: Cath Placed During This Visit: yes Urinary Catheter Date of Insertion: 10/27/22 Urinary Catheter Time of Insertion: 10:55 Data 10/27/22 09:58 10/27/22 09:58 Micro: Microbiology 10/27/22 10:10 Blood Culture - Preliminary Blood SPECIMEN COLLECTED 10/27/22 10:05 Blood Culture - Preliminary Blood SPECIMEN COLLECTED A&P Assessment and plan (1) Cellulitis: Right lower extremity large area of cellulitis. His states started probably about a week ago, got worse in the last several days. Complicated due to history of peripheral arterial disease. Arterial blood study was ordered in ER. Follow-up. Additionally low ejection fraction. Discussed with him and his cellulitis may be difficult to heal. He is also diabetic. At risk of progression of infection, sepsis, limb ischemia, potentially disabling or life-threatening complications given comorbid conditions. Continue to broaden coverage with vancomycin, Zosyn. Blood cultures been collected. Follow-up. We will see if able to diurese with some persistent lower extremity edema, although he states it is better than during prior admission. Additionally continue hemodialysis. Wound care. Noted leukocytosis 11,000. Predominant neutrophilic 8.83. (2) Skin tear: States that formed after a big blister there at first. Dorsal right foot large skin tear, weeping. Diuresis, hemodialysis above. Wound care. (3) Hyponatremia: Sodium 127. Difficult to short range air defense artillery whether hypervolemic as in fact his swelling is better compared to prior admission. He does still have some persistent edema. Continue Lasix. For now will not restrict to cardiac diet. Reassess sodium. Monitor volume status, at risk of CHF with severe cardiomyopathy EF 20%. (4) Hyperkalemia: Potassium 6.2. Discussed with nephrology, reassessing chemistry. Consideration of earlier dialysis today versus according to regular schedule tomorrow. (5) Goals of care, counseling/discussion: Discussion of goals of care with his present, in case of cardiopulmonary arrest he would be okay with defibrillation, he is wearing a LifeVest, however, does not want other components of CPR, chest compressions does not think would be beneficial and does not want them. In case of cardiopulmonary arrest without successful defibrillation would did not case preferred to receive comfort medications and allow nature to take its course. Plan Severe cardiomyopathy: EF 20%. Continues with LifeVest. At risk of CHF. Monitor. Monitor on telemetry due to risk of arrhythmia. Follow-up chemistry, electrolytes. Ulcer right big toe: Continue dressing changes. DM2: Continue long-acting insulin, add Accu-Cheks, sliding scale. He normally uses a Dexcom. Atrial fibrillation: Eliquis. Monitor on telemetry. CAD: Continue statin, Eliquis. PAD: Continue statin, pentoxifylline. He is on Eliquis. Liver cirrhosis COPD: Currently without exacerbation. Duo alex. HTN: Monitor blood pressures HLD: Continue statin OSITO Venous insufficiency, venous leg ulcers DVT prophylaxis: Continue Eliquis. ER documentation reviewed. Discussed with ER physician. Attestations Medical Necessity Statement*: Admission of over 2 midnights anticipated for assessment management of extensive cellulitis of right lower extremity and gentleman also with peripheral dural disease as well as severe cardiomyopathy EF 20%, renal failure requiring hemodialysis, at risk of complication, additional comorbidities as above. Diagnoses Cellulitis L03.90 Skin tear Hyponatremia E87.1 Hyperkalemia E87.5 Goals of care, counseling/discussion Z71.89
[2022-10-27 14:13] LABS: Anion Gap 16.3 (5-19); Blood Urea Nitrogen 39 mg/dL (8-23); Calcium 8.5 mg/dL (8.5-10.5); Carbon Dioxide 26 mmol/L (22-29); Chloride 91 mmol/L (98-107); Glucose 208 mg/dL (65-115); Osmolality Calculated 281 mOsm/kg (285-295); Potassium 5.3 mmol/L (3.5-5.1); Sodium 128 mmol/L (136-145)
[2022-10-27] MEDS: gabapentin 400 mg Capsule 800 MG PO ×2 (16:26→21:59)
[2022-10-27] MEDS: vancomycin 1,250 MG/250 ML PIGGYBACK 250 MG IV (16:27)
[2022-10-27] MEDS: sevelamer 800 mg Tablet PO ×2 (16:27→21:59)
--- NOTE | 2022-10-27 16:47 | PC.NURSE ---
Notified Dr. Lujan patient has a dexcom. Dr. Lujan stated to do Accu checks before breakfast and at bedtime to compare the dexcom readings.
[2022-10-27] MEDS: piperacillin-tazobactam 3.375 GM in sodium chloride 0.9% (plus) 50 ML IV (18:04)
[2022-10-27] MEDS: apixaban 5 mg Tablet PO (18:04)
[2022-10-27] MEDS: tamsulosin 0.4 mg Capsule PO (18:04)
[2022-10-27] MEDS: insulin lispro 100 unit/1 mL SUBCUT ×2 (18:05→21:59)
[2022-10-27] MEDS: acetaminophen 325 mg Tablet 650 MG PO (18:06)
[2022-10-27] MEDS: pantoprazole DR 40 mg Tablet PO (18:08)
--- NOTE | 2022-10-27 19:58 | PC.NURSE ---
Notified Tony Sommer to clarify patient was taking Oxy 10/325 PO 3 times daily. Login ASHLYN Dooley stated patient does take this medication. Last given was 10/27/[address] Acosta of patient taking Oxy10/325. Dr. Acosta gave verbal order to update patients med list and restart patients Oxy 10/235 mg 3 times daily PRN. Charge nurse will update and review the list.
[2022-10-27 21:47] LABS: Glucose Point of Care 173 mg/dL (70-110)
[2022-10-27] MEDS: sodium polystyrene sulfonate 15 gm/60 mL Btl 30 GM PO (23:16)
[2022-10-27 23:18] LABS: Hepatitis B Core AB, Total Non-Reactive (Nonreactive); Hepatitis B Surface AB 3.5 (11.5-1000); Hepatitis B Surface Antigen Non-Reactive (Nonreactive)
[2022-10-28] VITALS (13 sets, daily range): BP systolic 94–134; BP diastolic 56–83; PULSE 50–99; RESP 14–20; TEMP 36.5–36.8; O2SAT 90–96; BMI 39.4
[2022-10-28] MEDS: metOLazone 5 MG Tablet PO (05:58)
[2022-10-28] MEDS: levothyroxine 100 mcg Tablet PO (05:58)
[2022-10-28] MEDS: piperacillin-tazobactam 3.375 GM in sodium chloride 0.9% (plus) 50 ML IV ×2 (05:59→17:35)
[2022-10-28 06:14] LABS: Basophils # 0.1 10^3/uL (0.0-0.1); Basophils % 0.5 %; Eosinophils # 0.5 10^3/uL (0.0-0.8); Eosinophils % 4.2 %; Hematocrit 34.8 % (42.0-52.0); Hemoglobin 11.1 g/dL (11.7-16.6); Lymphocytes # 1.4 10^3/uL (0.8-4.8); Lymphocytes % 12.4 %; Mean Corpuscular HGB Conc 31.9 g/dL (30.0-36.0); Mean Corpuscular Hemoglobin 26.4 pg (28.0-34.0); Mean Corpuscular Volume 82.9 fl (80-94); Mean Platelet Volume 10.8 fL (7.4-10.4); Monocytes # 0.8 10^3/uL (0.2-0.9); Monocytes % 7.7 %; Neutrophils # 8.04 10^3/uL (1.8-7.7); Neutrophils % 73.7 %; Nucleated Red Blood Cells % 0.4 %; Platelet Count 232 10^3/cmm (130-400); Red Cell Distribution Width 19.6 % (12.1-15.1); White Blood Count 10.9 10^3/uL (4.0-10.0)
[2022-10-28 07:08] LABS: Glucose Point of Care 138 mg/dL (70-110)
[2022-10-28] MEDS: albumin 12.5 GM/50 ML VIAL IV (08:21)
--- NOTE | 2022-10-28 08:32 | PC.HD ---
Due to patient's history of low blood pressures and his tendency to drop BPs while on dialysis, albumin prn was initiated at treatment start. After first bag infused, this RN will reevaluate the necessity of second/third prn bags and administer accordingly.
--- NOTE | 2022-10-28 09:39 | P.CONIM_ITS ---
Providers/Reason For Consult Consulting Physician/Specialty*: [facility] /Nephrology Reason for Consult*: ESRD Attending Physician: Artemio Lujan Primary Care Provider: Mary Lou Anaya MD History of Present Illness History of Present Illness Refugio Amanda is a 77 year old male With past medical history of cardiomyopathy ejection fraction 20%, end-stage renal disease on hemodialysis per TTS schedule as outpatient. Patient was recently started on dialysis due to volume overload. Patient now presents from skilled nursing due to erythema in the right lower extremity and swelling. Vitals are stable in the ED but has elevated lactic acid sodium is 127 potassium 6.2. Potassium is medically treated and repeat potassium is 5.2. Patient is currently receiving dialysis. He denies any other complaints. Blood pressures have been stable while on dialysis Medications/Allergies Home Medications Medication Instructions Recorded Confirmed Last Taken Type apixaban 5 mg tablet (Eliquis) 5 mg PO BID 04/09/19 10/27/22 09/29/22 History omeprazole 20 mg capsule,delayed 40 mg PO BID 04/09/19 10/27/22 09/29/22 History release pentoxifylline 400 mg 400 mg PO TID 04/12/19 10/27/22 09/29/22 08:30 History tablet,extended release blood-glucose meter,continuous #1 ea 09/09/21 10/27/22 Unknown Rx (Dexcom G6 Insole And Outsole Splitter) diabetic shoes with 3 custom #1 ea 05/20/22 10/27/22 Unknown Rx inserts blood-glucose sensor (Dexcom G6 #9 ea 07/28/22 10/27/22 Unknown Rx Sensor device) blood-glucose transmitter (Dexcom #1 ea 07/28/22 10/27/22 Unknown Rx G6 Transmitter device) Juzo Lymphedema Wraps Bilaterally #1 ea 08/12/22 10/27/22 Unknown Rx 2 pairs Juzo compression wraps to right #1 ea 08/16/22 10/27/22 Unknown Rx and left insulin aspart U-100 100 unit/mL See Rx Instructions .Route .COMPLEX 09/15/22 10/27/22 Unknown History (3 mL) subcutaneous pen (Novolog FlexPen U-100 Insulin aspart) levothyroxine 100 mcg tablet 100 mcg PO QAM 09/15/22 10/27/22 09/29/22 History capsaicin 0.075 % topical cream 1 applic topical TID PRN Pain 09/29/22 10/27/22 Unknown History carbamide peroxide 6.5 % ear drops See Rx Instructions .Route .COMPLEX 09/29/22 10/27/22 Unknown History clotrimazole 1 % topical cream 1 applic topical DAILY PRN SCALES 09/29/22 10/27/22 Unknown History ON FEET guaifenesin 400 mg tablet 400 mg PO TID 09/29/22 10/27/22 09/29/22 History lactulose 10 gram/15 mL oral 15 ml PO DAILY PRN Constipation 09/29/22 10/27/22 09/28/22 History solution lidocaine 5 % topical patch 1 patch topical DAILY PRN Pain 09/29/22 10/27/22 Unknown History tamsulosin 0.4 mg capsule (Flomax) 0.4 mg PO QPM 09/29/22 10/27/22 09/28/22 History insulin detemir U-100 100 unit/mL 10 unit (0.1 mL) SUBCUT QAM #15 mL 10/11/22 10/27/22 09/29/22 Rx (3 mL) subcutaneous pen (Levemir 30 units FlexTouch U-100 Insulin) sevelamer carbonate 800 mg tablet 800 mg PO TID w meal #90 tabs 10/11/22 10/27/22 Unknown Rx (Renvela) Cinnamon Bark 500 mg PO BID PRN Diarrhea 10/27/22 10/27/22 Unknown History acarbose 100 mg tablet 100 mg PO TID 10/27/22 10/27/22 Unknown History atorvastatin 40 mg tablet 20 mg PO BEDTIME 10/27/22 10/27/22 Unknown History bisacodyl 10 mg rectal suppository 10 mg [place] DAILY PRN Constipation 10/27/22 10/27/22 Unknown History (Dulcolax (bisacodyl)) bumetanide 2 mg tablet 2 mg PO DAILY 10/27/22 10/27/22 Unknown History carvedilol 3.125 mg tablet 3.125 mg PO BID 10/27/22 10/27/22 Unknown History cholecalciferol (vitamin D3) 10 20 mcg PO DAILY 10/27/22 10/27/22 Unknown History mcg (400 unit) tablet (Vitamin D3) omega-3 fatty acids 1,000 mg PO BID 10/27/22 10/27/22 Unknown History omeprazole 20 mg capsule,delayed 20 mg PO BID 10/27/22 10/27/22 Unknown History release oxycodone-acetaminophen 10 mg-325 1 tab PO TID PRN Pain 10/27/22 10/27/22 Unknown History mg tablet sodium bicarbonate 650 mg tablet 650 mg PO BID 10/27/22 10/27/22 Unknown History vitamin E 670 mg (1,000 unit) 670 mg PO DAILY 10/27/22 10/27/22 Unknown History capsule zinc 50 mg capsule 50 mg PO DAILY 10/27/22 10/27/22 Unknown History Allergies Allergy/AdvReac Type Severity Reaction Status Date / Time lisinopril Allergy Unknown Verified 10/27/22 09:55 Current Medications Generic Name Dose Route Start Last Admin Trade Name Freq PRN Reason Stop Dose Admin Acetaminophen 650 mg 10/27/22 14:37 10/27/22 18:06 Acetaminophen 325 Mg Tablet PO 650 mg Q6H PRN Administration Mild/Mod Pain Or Temp >/= 101 Apixaban 5 mg 10/27/22 18:00 10/27/22 18:04 Apixaban 5 Mg Tablet PO 5 mg BID JAIR Administration Piperacillin Sod/Tazobactam 50 mls @ 12.5 mls/hr 10/27/22 17:30 10/28/22 05:59 Sod 3.375 gm/ Sodium Chloride IV 12.5 mls/hr Q12H JAIR Administration Protocol Insulin Human Lispro 0 unit 10/27/22 18:00 10/27/22 21:59 Insulin Lispro 100 Unit/1 Ml SUBCUT 2 unit WM&BEDTIME JAIR Administration Protocol Levothyroxine Sodium 100 mcg 10/28/22 06:00 10/28/22 05:58 Levothyroxine 100 Mcg Tablet PO 100 mcg QAM JAIR Administration Metolazone 5 mg 10/28/22 05:30 10/28/22 05:58 Metolazone 5 Mg Tablet PO 5 mg DAILY@0530 JAIR Administration Non-Formulary Medication 400 mg 10/27/22 15:00 10/27/22 22:00 Pentoxifylline PO Not Given TID JAIR Pantoprazole Sodium 40 mg 10/27/22 18:00 10/27/22 18:[address] 40 Mg Tablet PO 40 mg BID JAIR Administration Sevelamer Carbonate 800 mg 10/27/22 15:00 10/27/22 21:59 Sevelamer 800 Mg Tablet PO 800 mg TID JAIR Administration Tamsulosin HCl 0.4 mg 10/27/22 18:00 10/27/22 18:04 Tamsulosin 0.4 Mg Capsule PO 0.4 mg QPM JAIR Administration PFSH Acute PFSH: Medical History (Updated 10/28/22 @ 09:44 by Reina Tam MD) Abdominal pain Abnormal nuclear stress test Acute exacerbation of CHF (congestive heart failure) Acute kidney injury superimposed on chronic kidney disease Acute on chronic diastolic (congestive) heart failure Acute on chronic systolic heart failure BRAIN (acute kidney injury) Anasarca Asymptomatic microscopic hematuria Atherosclerotic heart disease Bradycardia Patient has a longstanding history of atrial fibrillation and bradycardia. Cardiomyopathy Non ischemic Cradiomyopathy. Chest pain CHF (congestive heart failure) Chronic atrial fibrillation Patient is on long-term oral anticoagulation. Chronic venous insufficiency Chronic venous insufficiency Cirrhosis CKD (chronic kidney disease) CKD (chronic kidney disease) COPD (chronic obstructive pulmonary disease) COPD (chronic obstructive pulmonary disease) Diabetes Diabetic peripheral neuropathy associated with type 2 diabetes mellitus Diverticulosis Edema ESRD (end stage renal disease) Exertional dyspnea Fluid overload History of nonmelanoma skin cancer Hx of cardiac pacemaker Hyperlipidemia Hypertension Hypokalemia Left upper quadrant pain intermediate (current) use of opiate analgesic Non-healing ulcer Nonischemic cardiomyopathy NSTEMI (non-ST elevated myocardial infarction) Onychodystrophy OSITO (obstructive sleep apnea) Osteoarthritis Osteoarthritis of left hip Osteomyelitis Right toe status post debridement and bone biopsy, [facility] 2017 PAD (peripheral artery disease) Patient has two-vessel runoff on the left side and three-vessel runoff on the right side. He has mild to moderate diffuse peripheral arterial disease. Pain management contract signed Peripheral arterial disease Peripheral angiogram in October 2019 revealing no significant lesions. He was found to have mild to moderate diffuse disease in the left lower extremity. Peripheral neuropathy Pulmonary vascular congestion Sleep apnea SOB (shortness of breath) Patient is known to have COPD Varicose veins of bilateral lower extremities with other complications Venous insufficiency Venous ulcer of left leg Surgical History History of hip surgery Hx of artificial lens replacement Hx of cataract extraction Hx of toe surgery Hx of tonsillectomy Status post cardiac pacemaker procedure Family History Father , at age 57 Cancer Mother , at age 91 Cancer breast Other CAD (coronary artery disease) Diabetes Denies family history of Clotting disorder Dementia Chronic kidney disease (CKD) Suicide Anesthesia complication Bleeding disorder Lung disease Stroke Social History Smoking and tobacco status: never smoked Second hand smoke exposure: No Alcohol intake: never Substance/Drug Use: never Lives independently: Yes Household members: spouse Housing: House Marital status: Current occupational status: employed Vitals/I&O/Wt Last Vital Signs Temp 97.7 F 10/28/22 08:29 Pulse 52 L 10/28/22 09:24 Resp 16 10/28/22 09:24 BP 134/74 10/28/22 08:29 Pulse Ox 96 10/28/22 09:24 O2 Del Method Nasal Cannula 10/28/22 09:24 O2 Flow Rate 2.5 10/28/22 09:24 10/27/22 10/28/22 10/28/22 22:59 06:59 14:59 Intake Total 780 / 830 60 / 890 360 / 360 Output Total 800 / 800 Balance 780 / 830 -740 / 90 360 / 360 Weight last 48 hrs Weight 135.369 kg Weight 117.934 kg Physical Exam Urinary Catheter Management: Douglas: Cath Placed During This Visit: yes Reason for Continuing Indwelling Catheter: Acute Urinary Retention or Obstruction Urinary Catheter Date of Insertion: 10/27/22 Urinary Catheter Time of Insertion: 10:55 Data 10/28/22 06:00 10/27/22 13:20 Micro: Microbiology 10/27/22 10:10 Blood Culture - Preliminary Blood SPECIMEN COLLECTED 10/27/22 10:05 Blood Culture - Preliminary Blood SPECIMEN COLLECTED A&P Assessment and plan (1) ESRD (end stage renal disease): Plan 1. End-stage renal disease: On dialysis per TTS S outpatient HD today 2. Hyperkalemia: Low potassium diet and HD as above 3. Hypotension: Blood pressures currently stable 4. Cellulitis of right lower extremity: Management per primary team 5. Hyponatremia: Mild, likely hypovolemic should improve with dialysis. Patient evaluated using audiovisual cart. Time spent 40 minutes Consult Attestations Medical Necessity Statement: per medicine Coding Level of Care Code Acute Code for Chg Fwd Diagnoses ESRD (end stage renal disease) N18.6
[2022-10-28 12:26] LABS: Alanine Aminotransferase 8 U/L (0-41); Albumin Level 3.3 g/dL (3.5-5.2); Alkaline Phosphatase 295 U/L (40-130); Anion Gap 15.8 (5-19); Aspartate Amino Transferase 25 U/L (0-40); Blood Urea Nitrogen 19 mg/dL (8-23); Calcium 8.2 mg/dL (8.5-10.5); Carbon Dioxide 27 mmol/L (22-29); Chloride 94 mmol/L (98-107); Globulin 3.5 g/dL (1.3-4.6); Glucose 132 mg/dL (65-115); Magnesium 1.8 mg/dL (1.7-2.3); Osmolality Calculated 280 mOsm/kg (285-295); Potassium 3.8 mmol/L (3.5-5.1); Sodium 133 mmol/L (136-145); Total Bilirubin 2.7 mg/dL (0.15-1.2); Total Protein 6.8 g/dL (6.6-8.7)
[2022-10-28] MEDS: insulin glargine 100 units/1 mL 10 UNIT SUBCUT (14:03)
[2022-10-28] MEDS: pantoprazole DR 40 mg Tablet PO ×2 (14:06→17:34)
[2022-10-28] MEDS: atorvastatin 40 mg Tablet 20 MG PO (14:06)
[2022-10-28] MEDS: apixaban 5 mg Tablet PO ×2 (14:06→17:55)
[2022-10-28] MEDS: sevelamer 800 mg Tablet PO ×2 (14:06→20:28)
[2022-10-28] MEDS: FUROsemide 10 mg/mL SDV 10mL 80 MG IVP (14:07)
[2022-10-28] MEDS: oxyCODONE-APAP 10-325 mg Tablet 1 TAB PO ×2 (14:13→21:42)
[2022-10-28] MEDS: lactulose oral liq 20 gm/30 mL UDC 10 GM PO (14:18)
[2022-10-28] MEDS: NON-FORMULARY MEDICATION (Pentoxifylline 400 mg tablet extended release) 400 EACH PO ×2 (15:56→20:28)
[2022-10-28] MEDS: vancomycin 750 MG in sodium chloride 0.9% 250 ML 250 MG IV (15:57)
[2022-10-28] MEDS: bisacodyl 10 mg Supp PR (16:16)
[2022-10-28] MEDS: tamsulosin 0.4 mg Capsule PO (17:34)
[2022-10-28] MEDS: sennosides-docusate Tablet 1 TAB PO (17:34)
--- NOTE | 2022-10-28 18:34 | P.PN_ITS ---
Subjective Subjective: States he is doing all right. Undergoing dialysis at the moment. Target of 3 L which he is set to achieve. Maintaining blood pressure. No changes in his left leg. Vitals/I&O/Wt Last Vital Signs Temp 98 F 10/28/22 16:00 Pulse 60 10/28/22 16:00 Resp 18 10/28/22 16:00 BP 114/69 10/28/22 16:00 Pulse Ox 90 10/28/22 16:00 O2 Del Method Nasal Cannula 10/28/22 09:24 O2 Flow Rate 2.5 10/28/22 09:24 10/28/22 10/28/22 10/28/22 06:59 14:59 22:59 Intake Total 60 / 890 1290 / 1290 610 / 1900 Output Total 800 / 800 3350 / 3350 350 / 3700 Balance -740 / 90 -2060 / -2060 260 / -1800 Weight last 48 hrs Weight 131.6 kg Weight 135.369 kg Weight 117.934 kg Physical Exam Const: COMMON NORMALS: patient oriented x3 and alert GENERAL APPEARANCE: cooperative ORIENTATION/CONSCIOUSNESS: Yes awake HENMT: COMMON NORMALS: oropharynx normal Neck/C-Spine: COMMON NORMALS: no JVD Resp: COMMON NORMALS: normal respiratory effort and clear to auscultation bilaterally AUSCULTATION: clear to auscultation bilaterally Cardio: COMMON NORMALS: no JVD, regular rhythm, S1 normal heart sound present, S2 normal heart sound present and No murmurs present (Cardio) RHYTHM: regular rhythm HEART SOUNDS: S1 normal heart sound present and S2 normal heart sound present GI: COMMON NORMALS: Normal to inspection, nondistended, normoactive bowel sounds present, Soft to palpation and non-tender PALPATION: Yes Soft to palpation Extremity: COMMON NORMALS: no joint enlargement GENERAL: Yes edema (1+) OTHER: Edema worse on feet. Neuro: COMMON NORMALS: patient oriented x3 and moves all extremities SENSORIUM/ORIENTATION: Yes alert Skin: OTHER: Redness below R knee Large weeping skin tear dorsal R foot. No purulence. 2cm longitudinal abrasion with purulence lower anterolat R tibia. 1cm abrasion opposite to it on anteromedial R tibia Urinary Catheter Management: Douglas: Cath Placed During This Visit: yes Reason for Continuing Indwelling Catheter: Acute Urinary Retention or Obstruction Urinary Catheter Date of Insertion: 10/27/22 Urinary Catheter Time of Insertion: 10:55 Data 10/28/22 06:00 10/28/22 11:48 Micro: Microbiology 10/27/22 10:00 Urine Culture - Preliminary Urine,Clean Catch Gram Negative Rods 10/27/22 10:10 Blood Culture - Preliminary Blood NEGATIVE TO DATE 10/27/22 10:05 Blood Culture - Preliminary Blood NEGATIVE TO DATE A&P Assessment and plan (1) Cellulitis: So far and improved large area of cellulitis. Continue IV antibiotics. Discussed with him. Discussed with pharmacist, continue controlled dosing of Zosyn. Continue vancomycin. Blood cultures so far negative. Discussed with him results of venous and arterial duplex, noted no DVT, no occlusion respectively. Discussed with case management. Right lower extremity large area of cellulitis. Low ejection fraction. Discussed with him and his cellulitis may be difficult to heal. He is also diabetic. At risk of progression of infection, sepsis, limb ischemia, potentially disabling or life-threatening complications given comorbid conditions. Wound care and skin tears. Leukocytosis about the same 10.9. Predominantly neutrophilic, neutrophils 8.04. Afebrile. (2) UTI (urinary tract infection): UA suggestive of UTI, 10-15 RBC, 4-5 WBC. Urine culture noted growing gram- negative rods. Continue Zosyn. Follow-up urine culture. (3) Skin tear: States that formed after a big blister there at first. Dorsal right foot large skin tear, weeping. Diuresis, hemodialysis above. Wound care. (4) Hyponatremia: Sodium noted improved up to 133. 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 He does still have some persistent edema. Continue Lasix. For now will not restrict to cardiac diet. Reassess sodium. Monitor volume status, at risk of CHF with severe cardiomyopathy EF 20%. (5) Hyperkalemia: Improved, down to 3.8. Reassess chemistry. (6) Goals of care, counseling/discussion: Discussion of goals of care with his present, in case of cardiopulmonary arrest he would be okay with defibrillation, he is wearing a LifeVest, however, does not want other components of CPR, chest compressions does not think would be beneficial and does not want them. In case of cardiopulmonary arrest without successful defibrillation would did not case preferred to receive comfort medications and allow nature to take its course. Plan Severe cardiomyopathy: EF 20%. Continues with LifeVest. At risk of CHF. Monitor. Monitor on telemetry due to risk of arrhythmia. Follow-up chemistry, electrolytes. Ulcer right big toe: Continue dressing changes. DM2: Continue long-acting insulin, add Accu-Cheks, sliding scale. He normally uses a Dexcom. Atrial fibrillation: Eliquis. Monitor on telemetry. CAD: Continue statin, Eliquis. PAD: Continue statin, pentoxifylline. He is on Eliquis. Liver cirrhosis COPD: Currently without exacerbation. Duo nebs. HTN: Monitor blood pressures HLD: Continue statin OSITO Venous insufficiency, venous leg ulcers DVT prophylaxis: Continue Eliquis. ER documentation reviewed. Discussed with ER physician. Attestations Medical Necessity Statement*: Continue admission for assessment management of extensive cellulitis of right lower extremity and gentleman also with severe cardiomyopathy EF 20%, renal failure requiring hemodialysis, at risk of complication, additional c omorbidities as above. Diagnoses Cellulitis L03.90 UTI (urinary tract infection) N39.0 Skin tear Hyponatremia E87.1 Hyperkalemia E87.5 Goals of care, counseling/discussion Z71.89
[2022-10-28] MEDS: insulin lispro 100 unit/1 mL SUBCUT (20:27)
[2022-10-28 20:35] LABS: Glucose Point of Care 220 mg/dL (70-110)
[2022-10-29] VITALS (11 sets, daily range): BP systolic 104–133; BP diastolic 62–77; PULSE 57–78; RESP 16–19; TEMP 36.1–36.7; O2SAT 92–100
[2022-10-29] MEDS: levothyroxine 100 mcg Tablet PO (05:59)
[2022-10-29] MEDS: piperacillin-tazobactam 3.375 GM in sodium chloride 0.9% (plus) 50 ML IV ×2 (05:59→17:45)
[2022-10-29] MEDS: metOLazone 5 MG Tablet PO (06:10)
[2022-10-29] MEDS: FUROsemide 10 mg/mL SDV 10mL 80 MG IVP (06:34)
[2022-10-29 06:53] LABS: Glucose Point of Care 204 mg/dL (70-110)
[2022-10-29 07:29] LABS: Basophils # 0.1 10^3/uL (0.0-0.1); Basophils % 0.6 %; Eosinophils # 0.3 10^3/uL (0.0-0.8); Eosinophils % 3.8 %; Hematocrit 34.4 % (42.0-52.0); Hemoglobin 10.4 g/dL (11.7-16.6); Lymphocytes # 0.9 10^3/uL (0.8-4.8); Lymphocytes % 10.5 %; Mean Corpuscular HGB Conc 30.2 g/dL (30.0-36.0); Mean Corpuscular Hemoglobin 25.6 pg (28.0-34.0); Mean Corpuscular Volume 84.5 fl (80-94); Mean Platelet Volume 10.4 fL (7.4-10.4); Monocytes # 0.8 10^3/uL (0.2-0.9); Monocytes % 8.9 %; Neutrophils # 6.53 10^3/uL (1.8-7.7); Neutrophils % 74.6 %; Nucleated Red Blood Cells % 0.3 %; Platelet Count 231 10^3/cmm (130-400); Red Blood Count 4.07 10^6/uL (4.1-5.3); Red Cell Distribution Width 19.7 % (12.1-15.1); White Blood Count 8.8 10^3/uL (4.0-10.0)
[2022-10-29 08:03] LABS: Alanine Aminotransferase 7 U/L (0-41); Albumin Level 2.7 g/dL (3.5-5.2); Alkaline Phosphatase 255 U/L (40-130); Aspartate Amino Transferase 20 U/L (0-40); Blood Urea Nitrogen 39 mg/dL (8-23); Carbon Dioxide 24 mmol/L (22-29); Chloride 92 mmol/L (98-107); Globulin 3.3 g/dL (1.3-4.6); Glucose 207 mg/dL (65-115); Osmolality Calculated 285 mOsm/kg (285-295); Sodium 130 mmol/L (136-145); Total Bilirubin 1.9 mg/dL (0.15-1.2)
[2022-10-29] MEDS: insulin lispro 100 unit/1 mL SUBCUT ×4 (09:53→21:32)
[2022-10-29] MEDS: sevelamer 800 mg Tablet PO ×3 (09:53→21:32)
[2022-10-29] MEDS: insulin glargine 100 units/1 mL 10 UNIT SUBCUT (09:54)
[2022-10-29] MEDS: sennosides-docusate Tablet 1 TAB PO ×2 (09:54→17:47)
[2022-10-29] MEDS: pantoprazole DR 40 mg Tablet PO ×2 (09:54→17:47)
[2022-10-29] MEDS: atorvastatin 40 mg Tablet 20 MG PO (09:54)
[2022-10-29] MEDS: apixaban 5 mg Tablet PO ×2 (09:54→17:47)
[2022-10-29] MEDS: lactulose oral liq 20 gm/30 mL UDC 10 GM PO (10:02)
[2022-10-29] MEDS: NON-FORMULARY MEDICATION (Pentoxifylline 400 mg tablet extended release) 400 EACH PO ×3 (11:06→21:32)
[2022-10-29 11:24] LABS: Glucose Point of Care 420 mg/dL (70-110)
--- NOTE | 2022-10-29 15:32 | PM.PN ---
Subjective Subjective: No new c/o Medications: Reviewed: Yes Vitals/I&O/Wt Last Vital Signs Temp 97.1 F L 10/29/22 12:00 Pulse 65 10/29/22 12:00 Resp 19 H 10/29/22 12:00 BP 116/73 10/29/22 12:00 Pulse Ox 97 10/29/22 12:00 O2 Del Method Nasal Cannula 10/29/22 12:00 O2 Flow Rate 3 10/29/22 08:46 10/29/22 10/29/22 10/29/22 06:59 14:59 22:59 Intake Total 1010 / 1010 Output Total 200 / 4100 Balance -200 / -2150 1010 / 1010 Weight last 48 hrs Weight 131.145 kg Weight 131.6 kg Weight 135.369 kg Physical Exam Urinary Catheter Management: Douglas: Cath Placed During This Visit: yes Reason for Continuing Indwelling Catheter: Acute Urinary Retention or Obstruction Urinary Catheter Date of Insertion: 10/27/22 Urinary Catheter Time of Insertion: 10:55 Data 10/29/22 07:03 10/29/22 07:03 Micro: Microbiology 10/27/22 10:00 Urine Culture - Preliminary Urine,Clean Catch Escherichia coli Yeast A&P Assessment and plan (1) ESRD (end stage renal disease): Plan 1. End-stage renal disease: On dialysis per TTS S outpatient , HD tomrrow 2. Hyperkalemia: Low potassium diet and HD as above 3. Hypotension: Blood pressures currently stable 4. Cellulitis of right lower extremity: Management per primary team 5. Hyponatremia: Mild, likely hypovolemic should improve with dialysis. 6. Cardiomyopathy : EF 20% Patient evaluated using audiovisual cart. Time spent 20 minutes Attestations Medical Necessity Statement*: per medicine Coding Level of Care Code Acute Code for Chg Fwd Diagnoses ESRD (end stage renal disease) N18.6
[2022-10-29 16:50] LABS: Glucose Point of Care 141 mg/dL (70-110)
[2022-10-29] MEDS: tamsulosin 0.4 mg Capsule PO (17:47)
--- NOTE | 2022-10-29 18:16 | PM.PN ---
Subjective Subjective: He is having somewhat less burning in his right leg. No other new developments. Vitals/I&O/Wt Last Vital Signs Temp 97 F L 10/29/22 16:00 Pulse 60 10/29/22 16:00 Resp 18 10/29/22 16:00 BP 104/62 10/29/22 16:00 Pulse Ox 100 10/29/22 16:00 O2 Del Method Nasal Cannula 10/29/22 16:00 O2 Flow Rate 3 10/29/22 08:46 10/29/22 10/29/22 10/29/22 06:59 14:59 22:59 Intake Total 1010 / 1010 240 / 1250 Output Total 200 / 4100 Balance -200 / -2150 1010 / 1010 240 / 1250 Weight last 48 hrs Weight 131.145 kg Weight 131.6 kg Weight 135.369 kg Physical Exam Const: COMMON NORMALS: patient oriented x3 and alert GENERAL APPEARANCE: cooperative ORIENTATION/CONSCIOUSNESS: Yes awake HENMT: COMMON NORMALS: oropharynx normal Neck/C-Spine: COMMON NORMALS: no JVD Resp: COMMON NORMALS: normal respiratory effort and clear to auscultation bilaterally AUSCULTATION: clear to auscultation bilaterally Cardio: COMMON NORMALS: no JVD, regular rhythm, S1 normal heart sound present, S2 normal heart sound present and No murmurs present (Cardio) RHYTHM: regular rhythm HEART SOUNDS: S1 normal heart sound present and S2 normal heart sound present GI: COMMON NORMALS: Normal to inspection, nondistended, normoactive bowel sounds present, Soft to palpation and non-tender PALPATION: Yes Soft to palpation Extremity: COMMON NORMALS: no joint enlargement GENERAL: Yes edema (1+) OTHER: Edema worse on feet. Neuro: COMMON NORMALS: patient oriented x3 and moves all extremities SENSORIUM/ORIENTATION: Yes alert Skin: OTHER: Redness below R knee Large weeping skin tear dorsal R foot. No purulence. 2cm longitudinal abrasion with purulence lower anterolat R tibia. 1cm abrasion opposite to it on anteromedial R tibia Urinary Catheter Management: Douglas: Cath Placed During This Visit: yes Reason for Continuing Indwelling Catheter: Acute Urinary Retention or Obstruction Urinary Catheter Date of Insertion: 10/27/22 Urinary Catheter Time of Insertion: 10:55 Data 10/29/22 07:03 10/29/22 07:03 Micro: Microbiology 10/27/22 10:00 Urine Culture - Preliminary Urine,Clean Catch Escherichia coli Yeast A&P Assessment and plan (1) Cellulitis: He is showing some improvement in symptoms subjectively. Also improvement in leukocytosis down to 8.8. Due to extent of cellulitis continue IV antibiotic coverage at this time. Persistent erythema right lower extremity. Weeping. Continue wound care. Preliminary blood cultures noted negative. Continue Zosyn and vancomycin. Blood cultures so far negative. Discussed with him results of venous and arterial duplex, noted no DVT, no occlusion respectively. Discussed in rounds with case management, nursing. Follow-up CBC requested. Right lower extremity large area of cellulitis. Low ejection fraction. Discussed with him and his cellulitis may be difficult to heal. He is also diabetic. At risk of progression of infection, sepsis, limb ischemia, potentially disabling or life-threatening complications given comorbid conditions. Wound care and skin tears. Continue Hydrofera Blue on reaping skin surface. (2) UTI (urinary tract infection): Urine culture with noted E. coli. Continue broad-spectrum coverage as above, covered by Zosyn. UA suggestive of UTI, 10-15 RBC, 4-5 WBC. Urine culture noted growing gram-negative rods. Continue Zosyn. Follow-up urine culture. (3) Skin tear: States that formed after a big blister there at first. Dorsal right foot large skin tear, weeping. Diuresis, hemodialysis above. Wound care. (4) Hyponatremia: Sodium noted improved up to 130. Follow-up chemistry requested. Difficult to director process improvement whether hypervolemic as in fact his swelling is better compared to prior admission. He does still have some persistent edema. Continue Lasix. For now will not restrict to cardiac diet. Reassess sodium. Monitor volume status, at risk of CHF with severe cardiomyopathy EF 20%. (5) Hyperkalemia: Improved, down to 4. Low potassium diet. Hemodialysis. Reassess chemistry. (6) Goals of care, counseling/discussion: Discussion of goals of care with his present, in case of cardiopulmonary arrest he would be okay with defibrillation, he is wearing a LifeVest, however, does not want other components of CPR, chest compressions does not think would be beneficial and does not want them. In case of cardiopulmonary arrest without successful defibrillation would did not case preferred to receive comfort medications and allow nature to take its course. Plan Renal failure: No issues with dialysis. Nephrology note reviewed. Continue TTS. Renal diet. Severe cardiomyopathy: EF 20%. Continues with LifeVest. At risk of CHF. Monitor. Monitor on telemetry due to risk of arrhythmia. Follow-up chemistry, electrolytes. Ulcer right big toe: Continue dressing changes. DM2: Continue long-acting insulin, add Accu-Cheks, sliding scale. He normally uses a Dexcom. Atrial fibrillation: Eliquis. Monitor on telemetry. CAD: Continue statin, Eliquis. PAD: Continue statin, pentoxifylline. He is on Eliquis. Liver cirrhosis COPD: Currently without exacerbation. Duo nebs. HTN: Monitor blood pressures HLD: Continue statin OSITO Venous insufficiency, venous leg ulcers DVT prophylaxis: Continue Eliquis. ER documentation reviewed. Discussed with ER physician. Attestations Medical Necessity Statement*: Continue admission for assessment management of extensive cellulitis of right lower extremity and gentleman also with severe cardiomyopathy EF 20%, renal failure requiring hemodialysis, at risk of complication, additional comorbidities as above. Diagnoses Cellulitis L03.90 UTI (urinary tract infection) N39.0 Skin tear Hyponatremia E87.1 Hyperkalemia E87.5 Goals of care, counseling/discussion Z71.89
[2022-10-29] MEDS: oxyCODONE-APAP 10-325 mg Tablet 1 TAB PO (20:56)
[2022-10-29 21:29] LABS: Glucose Point of Care 212 mg/dL (70-110)
[2022-10-30] VITALS (14 sets, daily range): BP systolic 96–139; BP diastolic 53–85; PULSE 56–96; RESP 16–18; TEMP 36.3–36.8; O2SAT 91–100; BMI 38.2
[2022-10-30 04:31] LABS: Basophils # 0.1 10^3/uL (0.0-0.1); Basophils % 0.6 %; Eosinophils # 0.4 10^3/uL (0.0-0.8); Eosinophils % 3.9 %; Hematocrit 32.7 % (42.0-52.0); Hemoglobin 10.1 g/dL (11.7-16.6); Lymphocytes # 0.9 10^3/uL (0.8-4.8); Lymphocytes % 9.9 %; Mean Corpuscular HGB Conc 30.9 g/dL (30.0-36.0); Mean Corpuscular Hemoglobin 25.8 pg (28.0-34.0); Mean Corpuscular Volume 83.4 fl (80-94); Mean Platelet Volume 9.9 fL (7.4-10.4); Monocytes # 0.7 10^3/uL (0.2-0.9); Monocytes % 8.1 %; Neutrophils # 6.76 10^3/uL (1.8-7.7); Neutrophils % 74.6 %; Nucleated Red Blood Cells % 0 %; Platelet Count 231 10^3/cmm (130-400); Red Blood Count 3.92 10^6/uL (4.1-5.3); Red Cell Distribution Width 19.4 % (12.1-15.1); White Blood Count 9.1 10^3/uL (4.0-10.0)
[2022-10-30 04:52] LABS: Alanine Aminotransferase 6 U/L (0-41); Albumin Level 2.5 g/dL (3.5-5.2); Alkaline Phosphatase 240 U/L (40-130); Anion Gap 14.3 (5-19); Aspartate Amino Transferase 19 U/L (0-40); Blood Urea Nitrogen 42 mg/dL (8-23); Calcium 8.1 mg/dL (8.5-10.5); Carbon Dioxide 31 mmol/L (22-29); Chloride 85 mmol/L (98-107); Globulin 3.3 g/dL (1.3-4.6); Glucose 159 mg/dL (65-115); Osmolality Calculated 278 mOsm/kg (285-295); Potassium 3.3 mmol/L (3.5-5.1); Sodium 127 mmol/L (136-145); Total Protein 5.8 g/dL (6.6-8.7)
[2022-10-30 04:53] LABS: Vancomycin Trough 6.6 ug/mL (10-15)
[2022-10-30] MEDS: levothyroxine 100 mcg Tablet PO (05:18)
[2022-10-30] MEDS: piperacillin-tazobactam 3.375 GM in sodium chloride 0.9% (plus) 50 ML IV ×2 (05:18→17:19)
[2022-10-30] MEDS: oxyCODONE-APAP 10-325 mg Tablet 1 TAB PO ×3 (05:39→21:15)
--- NOTE | 2022-10-30 05:45 | PM.PN ---
Subjective Subjective: seen during dialysis. no complaints Vitals/I&O/Wt Last Vital Signs Temp 97.7 F 10/30/22 03:37 Pulse 62 10/30/22 03:37 Resp 16 10/30/22 05:39 BP 96/63 10/30/22 03:37 Pulse Ox 94 10/30/22 03:37 O2 Del Method CPAP 10/30/22 03:37 O2 Flow Rate 3 10/29/22 20:56 10/29/22 10/29/22 10/30/22 14:59 22:59 06:59 Intake Total 1010 / 1010 240 / 1250 50 / 1300 Output Total 2300 / 2300 1200 / 3500 Balance 1010 / 1010 -2060 / -1050 -1150 / -2200 Weight last 48 hrs Weight 131.684 kg Weight 131.145 kg Weight 131.6 kg Weight 135.369 kg Physical Exam Const: COMMON NORMALS: no acute distress and alert HENMT: OTHER: right IJ tunneled HD catheter Extremity: NARRATIVE EXTREMITY EXAM: +edema Neuro: SENSORIUM/ORIENTATION: Yes alert Urinary Catheter Management: Douglas: Cath Placed During This Visit: yes Reason for Continuing Indwelling Catheter: Acute Urinary Retention or Obstruction Urinary Catheter Date of Insertion: 10/27/22 Urinary Catheter Time of Insertion: 10:55 Data 10/30/22 03:52 10/30/22 03:52 Other Labs: albumin 2.5, Ca 8.1, freddy Ca 9.3, vanco 6.6 urine culture e.coli, yeast vanco 6.6 Micro: Microbiology 10/27/22 10:00 Urine Culture - Preliminary Urine,Clean Catch Escherichia coli Yeast Other data: seen via telemedicine with assistance of RN at bedside A&P Assessment and plan (1) ESRD (end stage renal disease): Plan 1. ESRD, HD T//S 2. Hyponatremia, appears assymptomatic. Hypokalemia, metabolic alkalosis. Discontinue diuretics for now. Replace KCl 3. Anemia, Hb stable. dose epogen and check iron studies 4. UTI, cellultis on antibiotics 5. cardiomyopathy Rec: HD today. Discontinue diuretics for now; replace KCl, check iron studies, phos, dose epogen Attestations Medical Necessity Statement*: see above Time Spent in Patient Care: 16 - 35 minutes Coding Level of Care Code Acute Code for Chg Fwd Diagnoses ESRD (end stage renal disease) N18.6
[2022-10-30] MEDS: potassium chloride ER 20 mEq Tablet PO (06:18)
[2022-10-30 07:06] LABS: Glucose Point of Care 195 mg/dL (70-110)
[2022-10-30] MEDS: insulin lispro 100 unit/1 mL SUBCUT ×4 (07:36→21:14)
--- NOTE | 2022-10-30 10:43 | PC.SOCIAL ---
IMM Update pg 2 of IMM updated and reviewed w/ patient. Copy left @ bedside and copy dated, initialed and placed in chart.
[2022-10-30 11:17] LABS: Iron 22 ug/dL (59-158); Percent Saturation 11.7 % (20-50); Total Iron Binding Capacity 187 mcg/dl; Unsaturated Iron Binding 165 ug/dL (112-347)
[2022-10-30] MEDS: atorvastatin 40 mg Tablet 20 MG PO (11:38)
[2022-10-30] MEDS: sevelamer 800 mg Tablet PO ×3 (11:38→21:15)
[2022-10-30] MEDS: sennosides-docusate Tablet 1 TAB PO ×2 (11:39→17:19)
[2022-10-30] MEDS: apixaban 5 mg Tablet PO ×2 (11:39→17:19)
[2022-10-30] MEDS: pantoprazole DR 40 mg Tablet PO ×2 (11:39→17:19)
[2022-10-30] MEDS: insulin glargine 100 units/1 mL 10 UNIT SUBCUT (11:41)
[2022-10-30] MEDS: NON-FORMULARY MEDICATION (Pentoxifylline 400 mg tablet extended release) 400 EACH PO ×3 (11:41→21:14)
[2022-10-30 12:01] LABS: Glucose Point of Care 184 mg/dL (70-110)
[2022-10-30] MEDS: heparin, porcine 1,000 unit/mL INJ 10 mL 10000 UNIT INTRACATH (12:03)
[2022-10-30] MEDS: heparin, porcine 1,000 unit/mL INJ 10 mL 1000 UNIT IV (12:04)
[2022-10-30] MEDS: lactulose oral liq 20 gm/30 mL UDC 10 GM PO (15:04)
[2022-10-30] MEDS: vancomycin 750 MG in sodium chloride 0.9% 250 ML 250 MG IV (15:05)
[2022-10-30 16:56] LABS: Glucose Point of Care 201 mg/dL (70-110)
--- NOTE | 2022-10-30 16:58 | PM.PN ---
Subjective Subjective: Burning/pain in right lower extremity continues to improve. Later on reported to be still having constipation. Vitals/I&O/Wt Last Vital Signs Temp 97.7 F 10/30/22 16:31 Pulse 56 L 10/30/22 16:31 Resp 18 10/30/22 16:31 BP 115/73 10/30/22 16:31 Pulse Ox 98 10/30/22 16:31 O2 Del Method Nasal Cannula 10/30/22 11:56 O2 Flow Rate 3 10/30/22 08:00 10/30/22 10/30/22 10/30/22 06:59 14:59 22:59 Intake Total 50 / 1300 1310 / 1310 Output Total 1200 / 3500 2300 / 2300 600 / 2900 Balance -1150 / -2200 -990 / -990 -600 / -1590 Weight last 48 hrs Weight 129.8 kg Weight 131.684 kg Weight 131.145 kg Physical Exam Narrative: Undergoing hemodialysis and visiting with the front office medical assistant. Const: COMMON NORMALS: patient oriented x3 and alert GENERAL APPEARANCE: cooperative ORIENTATION/CONSCIOUSNESS: Yes awake HENMT: COMMON NORMALS: oropharynx normal Neck/C-Spine: COMMON NORMALS: no JVD Resp: COMMON NORMALS: normal respiratory effort and clear to auscultation bilaterally AUSCULTATION: clear to auscultation bilaterally Cardio: COMMON NORMALS: no JVD, regular rhythm, S1 normal heart sound present, S2 normal heart sound present and No murmurs present (Cardio) RHYTHM: regular rhythm HEART SOUNDS: S1 normal heart sound present and S2 normal heart sound present GI: COMMON NORMALS: Normal to inspection, nondistended, normoactive bowel sounds present, Soft to palpation and non-tender PALPATION: Yes Soft to palpation Extremity: COMMON NORMALS: no joint enlargement GENERAL: Yes edema (1+) Neuro: COMMON NORMALS: patient oriented x3 and moves all extremities SENSORIUM/ORIENTATION: Yes alert Skin: OTHER: Redness below R knee Large weeping skin tear dorsal R foot. No purulence. 2cm longitudinal abrasion with purulence lower anterolat R tibia. 1cm abrasion opposite to it on anteromedial R tibia Urinary Catheter Management: Douglas: Cath Placed During This Visit: yes Reason for Continuing Indwelling Catheter: Acute Urinary Retention or Obstruction Urinary Catheter Date of Insertion: 10/27/22 Urinary Catheter Time of Insertion: 10:55 Data 10/30/22 03:52 10/30/22 03:52 Micro: Microbiology 10/27/22 10:00 Urine Culture - Preliminary Urine,Clean Catch Escherichia coli Yeast A&P Assessment and plan (1) Cellulitis: Subjectively he is feeling further better, with improvement in burning. Still persistent extensive erythema right lower extremity. Extensive cellulitis. Continue IV antibiotics. Otherwise improving with leukocytosis resolved. Afebrile. Continue wound care with Hydrofera Blue at weeping areas. Preliminary blood culture negative to date. Continue Zosyn and vancomycin. Repeat CBC. Discussed with case management. Discussed with him results of venous and arterial duplex, noted no DVT, no occlusion respectively. Low ejection fraction. Discussed with him and his cellulitis may be difficult to heal. He is also diabetic. At risk of progression of infection, sepsis, limb ischemia, potentially disabling or life-threatening complications given comorbid conditions. Glucose ranging 130s-200s. Wound care and skin tears. Continue Hydrofera Blue on reaping skin surface. (2) UTI (urinary tract infection): E. coli in urine culture. Continue broad-spectrum coverage as above, covered by Zosyn. (3) Skin tear: States that formed after a big blister there at first. Dorsal right foot large skin tear, weeping. Diuresis, hemodialysis above. Wound care. (4) Hyponatremia: Sodium noted worse to 127. Anticipate should improve with HD. Nephrology note appreciated. Follow-up chemistry requested. Lasix was discontinued. Reassess sodium. Monitor volume status, at risk of CHF with severe cardiomyopathy EF 20%. (5) Hyperkalemia: Resolved. Now hypokalemic. Given replacement. Hemodialysis. Reassess chemistry. (6) Goals of care, counseling/discussion: Discussion of goals of care with his present, in case of cardiopulmonary arrest he would be okay with defibrillation, he is wearing a LifeVest, however, does not want other components of CPR, chest compressions does not think would be beneficial and does not want them. In case of cardiopulmonary arrest without successful defibrillation would did not case preferred to receive comfort medications and allow nature to take its course. Plan Renal failure: No issues with dialysis. Nephrology note reviewed. Continue TTS. Renal diet. Severe cardiomyopathy: EF 20%. Continues with LifeVest. At risk of CHF. Monitor. Monitor on telemetry due to risk of arrhythmia. Follow-up chemistry, electrolytes. Ulcer right big toe: Continue dressing changes. DM2: Continue long-acting insulin, add Accu-Cheks, sliding scale. He normally uses a Dexcom. Atrial fibrillation: Eliquis. Monitor on telemetry. CAD: Continue statin, Eliquis. PAD: Continue statin, pentoxifylline. He is on Eliquis. Liver cirrhosis COPD: Currently without exacerbation. Duo nebs. HTN: Monitor blood pressures HLD: Continue statin OSITO Venous insufficiency, venous leg ulcers DVT prophylaxis: Continue Eliquis. ER documentation reviewed. Discussed with ER physician. Attestations Medical Necessity Statement*: Continue admission for assessment management of extensive cellulitis of right lower extremity in a gentleman with multiple comorbidities and risk of complication. Diagnoses Cellulitis L03.90 UTI (urinary tract infection) N39.0 Skin tear Hyponatremia E87.1 Hyperkalemia E87.5 Goals of care, counseling/discussion Z71.89
[2022-10-30] MEDS: tamsulosin 0.4 mg Capsule PO (17:18)
[2022-10-30] MEDS: polyethylene glycol 3350 Pkt 17 gm PO (17:19)
[2022-10-30 20:35] LABS: Glucose Point of Care 186 mg/dL (70-110)
[2022-10-30] MEDS: bisacodyl 10 mg Supp PR (21:20)
[2022-10-31] VITALS (14 sets, daily range): BP systolic 99–145; BP diastolic 55–82; PULSE 42–71; RESP 16–19; TEMP 36.4–36.8; O2SAT 94–99
--- NOTE | 2022-10-31 02:34 | PC.NURSE ---
Pt c/o significant discomfort and pain in darron and rectal area with last BM per pt being 10/24. dayshift had administered miralax, senna, and lactulose attempting to assist in pt to have bm per received shift report. no bm at shift change but pt did have a smear on libertad. this nurse cleaned pt and changed libertad pad with aide assistance and found pt to have visible stool at the anus with dilation and palpable stool under the perineal skin. pt was unable to bear down effectively to pass this. notified dr staples, who gave verbal order to manually dis impact pt; this was performed, pt tolerated fair. this nurse also administered suppository to aid in treatment for constipation. pt reported some relief of pressure and pain. pt repositioned and left with call light within reach. will continue to monitor.
[2022-10-31 04:34] LABS: Basophils # 0.1 10^3/uL (0.0-0.1); Basophils % 0.7 %; Eosinophils # 0.3 10^3/uL (0.0-0.8); Eosinophils % 3.8 %; Hemoglobin 10.7 g/dL (11.7-16.6); Lymphocytes # 0.8 10^3/uL (0.8-4.8); Lymphocytes % 8.9 %; Mean Corpuscular HGB Conc 31.5 g/dL (30.0-36.0); Mean Corpuscular Hemoglobin 26.2 pg (28.0-34.0); Mean Corpuscular Volume 83.1 fl (80-94); Mean Platelet Volume 9.7 fL (7.4-10.4); Monocytes # 0.7 10^3/uL (0.2-0.9); Monocytes % 7.9 %; Neutrophils # 6.83 10^3/uL (1.8-7.7); Nucleated Red Blood Cells % 0 %; Platelet Count 224 10^3/cmm (130-400); Red Blood Count 4.09 10^6/uL (4.1-5.3); Red Cell Distribution Width 19.4 % (12.1-15.1)
[2022-10-31 04:50] LABS: Alanine Aminotransferase 7 U/L (0-41); Albumin Level 2.9 g/dL (3.5-5.2); Alkaline Phosphatase 260 U/L (40-130); Anion Gap 13.5 (5-19); Aspartate Amino Transferase 22 U/L (0-40); Blood Urea Nitrogen 32 mg/dL (8-23); Calcium 7.9 mg/dL (8.5-10.5); Carbon Dioxide 31 mmol/L (22-29); Chloride 93 mmol/L (98-107); Globulin 3.3 g/dL (1.3-4.6); Glucose 118 mg/dL (65-115); Osmolality Calculated 286 mOsm/kg (285-295); Phosphorus 3.2 mg/dL (2.5-4.5); Potassium 3.5 mmol/L (3.5-5.1); Sodium 134 mmol/L (136-145); Total Protein 6.2 g/dL (6.6-8.7)
[2022-10-31 04:52] LABS: Vancomycin Random 8.7 ug/mL (20.0-40.0)
[2022-10-31 05:07] LABS: Ferritin 53 ng/mL (30-400); Iron 28 ug/dL (59-158)
[2022-10-31] MEDS: piperacillin-tazobactam 3.375 GM in sodium chloride 0.9% (plus) 50 ML IV ×2 (06:19→15:55)
[2022-10-31] MEDS: levothyroxine 100 mcg Tablet PO (06:21)
[2022-10-31 06:59] LABS: Glucose Point of Care 126 mg/dL (70-110)
[2022-10-31] MEDS: sevelamer 800 mg Tablet PO ×3 (09:05→20:57)
[2022-10-31] MEDS: atorvastatin 40 mg Tablet 20 MG PO (09:05)
[2022-10-31] MEDS: NON-FORMULARY MEDICATION (Pentoxifylline 400 mg tablet extended release) 400 EACH PO ×3 (09:05→20:57)
[2022-10-31] MEDS: sennosides-docusate Tablet 1 TAB PO ×2 (09:06→16:56)
[2022-10-31] MEDS: pantoprazole DR 40 mg Tablet PO ×2 (09:06→16:56)
[2022-10-31] MEDS: insulin glargine 100 units/1 mL 10 UNIT SUBCUT (09:06)
[2022-10-31] MEDS: apixaban 5 mg Tablet PO ×2 (09:06→16:56)
[2022-10-31] MEDS: lactulose oral liq 20 gm/30 mL UDC 10 GM PO (09:06)
[2022-10-31] MEDS: polyethylene glycol 3350 Pkt 17 gm PO ×2 (09:06→16:55)
[2022-10-31] MEDS: oxyCODONE-APAP 10-325 mg Tablet 1 TAB PO ×2 (09:06→20:57)
--- NOTE | 2022-10-31 10:08 | PM.PN ---
Subjective Subjective: feeling better, legs less painful states carvajal cannot be removed because he cannot control stream Vitals/I&O/Wt Last Vital Signs Temp 98.0 F 10/31/22 08:00 Pulse 57 L 10/31/22 08:00 Resp 18 10/31/22 09:06 BP 110/57 10/31/22 08:00 Pulse Ox 97 10/31/22 08:00 O2 Del Method Nasal Cannula 10/31/22 08:00 O2 Flow Rate 3 10/31/22 08:00 10/30/22 10/31/22 10/31/22 22:59 06:59 14:59 Intake Total 660 / 1970 360 / 360 Output Total 600 / 2900 400 / 3300 Balance 60 / -930 -400 / -1330 360 / 360 Weight last 48 hrs Weight 131.542 kg Weight 129.8 kg Weight 131.684 kg Physical Exam Const: COMMON NORMALS: no acute distress and alert HENMT: OTHER: right IJ tunneled HD catheter Extremity: OTHER: + erythema, less edema Neuro: SENSORIUM/ORIENTATION: Yes alert Urinary Catheter Management: Carvajal: Cath Placed During This Visit: yes Reason for Continuing Indwelling Catheter: Other Urinary Catheter Date of Insertion: 10/27/22 Urinary Catheter Time of Insertion: 10:55 Data 10/31/22 04:20 10/31/22 04:20 Other Labs: TSAT 11.7%, SF 53 vanco 8.7 Ca 7.9, alb 2.9, freddy Ca 8.7 phos 3.2 Other data: seen via telemedicine with assistance of RN at bedside A&P Assessment and plan (1) ESRD (end stage renal disease): Plan 1. ESRD, HD T//S 2. Hyponatremia, Hypokalemia, improved 3. Anemia, Hb stable. Iron deficient, add venofer at HD 4. UTI, cellultis on antibiotics 5. cardiomyopathy Rec: Resume furosemide 80 mg daily, KCl 20 mEq daily. Next HD TuesdayNovember 02 Attestations Medical Necessity Statement*: see above Time Spent in Patient Care: 16 - 35 minutes Coding Level of Care Code Acute Code for Chg Fwd Diagnoses ESRD (end stage renal disease) N18.6
[2022-10-31] MEDS: ipratropium-albuterol 3 mL Neb INHALATION (11:03)
[2022-10-31 12:02] LABS: Glucose Point of Care 179 mg/dL (70-110)
[2022-10-31] MEDS: insulin lispro 100 unit/1 mL SUBCUT ×3 (12:16→20:56)
[2022-10-31] MEDS: FUROsemide 40 mg Tablet 80 MG PO (12:17)
[2022-10-31] MEDS: potassium chloride ER 20 mEq Tablet PO (12:17)
[2022-10-31] MEDS: vancomycin 1,000 MG in sodium chloride 0.9% 250 ML 250 MG IV (14:20)
[2022-10-31 16:36] LABS: Glucose Point of Care 206 mg/dL (70-110)
[2022-10-31] MEDS: tamsulosin 0.4 mg Capsule PO (16:56)
[2022-10-31 20:57] LABS: Glucose Point of Care 217 mg/dL (70-110)
[2022-10-31] MEDS: bisacodyl 10 mg Supp PR (20:57)
--- NOTE | 2022-10-31 22:41 | P.PN_ITS ---
Subjective Subjective: His a leg continues to improve. Burning is resolving. He also finally had a bowel movement. Vitals/I&O/Wt Last Vital Signs Temp 98.2 F 10/31/22 20:00 Pulse 64 10/31/22 20:04 Resp 18 10/31/22 20:57 BP 145/82 10/31/22 20:00 Pulse Ox 94 10/31/22 20:57 O2 Del Method Nasal Cannula 10/31/22 20:04 O2 Flow Rate 3 10/31/22 20:04 10/31/22 10/31/22 10/31/22 06:59 14:59 22:59 Intake Total 650 / 650 540 / 1190 Output Total 400 / 3300 500 / 500 Balance -400 / -1330 650 / 650 40 / 690 Weight last 48 hrs Weight 131.542 kg Weight 129.8 kg Weight 131.684 kg Physical Exam Narrative: Undergoing hemodialysis and visiting with the family living educator. Const: COMMON NORMALS: patient oriented x3 and alert GENERAL APPEARANCE: cooperative ORIENTATION/CONSCIOUSNESS: Yes awake HENMT: COMMON NORMALS: oropharynx normal Neck/C-Spine: COMMON NORMALS: no JVD Resp: COMMON NORMALS: normal respiratory effort and clear to auscultation bilaterally AUSCULTATION: clear to auscultation bilaterally Cardio: COMMON NORMALS: no JVD, regular rhythm, S1 normal heart sound present, S2 normal heart sound present and No murmurs present (Cardio) RHYTHM: regular rhythm HEART SOUNDS: S1 normal heart sound present and S2 normal heart sound present GI: COMMON NORMALS: Normal to inspection, nondistended, normoactive bowel sounds present, Soft to palpation and non-tender PALPATION: Yes Soft to palpation Extremity: COMMON NORMALS: no joint enlargement GENERAL: Yes edema (1+) OTHER: Edema worse on feet. Neuro: COMMON NORMALS: patient oriented x3 and moves all extremities SENSORIUM/ORIENTATION: Yes alert Skin: OTHER: Redness below R knee Large weeping skin tear dorsal R foot, still weeping. No purulence. No surrounding erythema 2cm longitudinal abrasion with purulence lower anterolat R tibia. 1cm abrasion opposite to it on anteromedial R tibia Urinary Catheter Management: Douglas: Cath Placed During This Visit: yes Reason for Continuing Indwelling Catheter: Other Urinary Catheter Date of Insertion: 10/27/22 Urinary Catheter Time of Insertion: 10:55 Data 10/31/22 04:20 10/31/22 04:20 Micro: Microbiology 10/27/22 10:00 Urine Culture - Final Urine,Clean Catch Escherichia coli Aleisha tropicalis A&P Assessment and plan (1) Cellulitis: Continues to slowly improve. Slightly less angry appearing erythema today. Subjectively feeling he is improving. Continue IV antibiotics for now due to extent of cellulitis. Continue wound care for skin tears/ruptured blisters. Will benefit from follow-up with wound care after discharge. Nephrology note reviewed. Noted Lasix resumed. If continues to be pain, persistent mild swelling, consideration may be given to compression dressing, although some risk would be associated with his underlying PAD. Still persistent extensive erythema right lower extremity. Extensive cellulitis. Continue IV antibiotics. Leukocytosis noted resolved. Continue wound care with Hydrofera Blue at weeping areas. Blood culture pending. So far negative. Continue Zosyn and vancomycin. Repeat CBC. Discussed with case management in rounds. Discussed with him results of venous and arterial duplex, noted no DVT, no occlusion respectively. Low ejection fraction. Discussed with him and his cellulitis may be difficult to heal. He is also diabetic. At risk of progression of infection, sepsis, limb ischemia, potentially disabling or life-threatening complications given comorbid conditions. Glucose ranging 130s-200s. Wound care and skin tears. Continue Hydrofera Blue on reaping skin surface. (2) UTI (urinary tract infection): E. coli in urine culture. Continue broad-spectrum coverage as above, covered by Zosyn. (3) Skin tear: States that formed after a big blister there at first. Dorsal right foot large skin tear, weeping. Diuresis, hemodialysis above. Wound care. (4) Hyponatremia: Sodium noted worse to 127. Anticipate should improve with HD. Nephrology note appreciated. Follow-up chemistry requested. Lasix was discontinued. Reassess sodium. Monitor volume status, at risk of CHF with severe cardiomyopathy EF 20%. (5) Hyperkalemia: Resolved. Now hypokalemic. Given replacement. Hemodialysis. Reassess chemistry. (6) Goals of care, counseling/discussion: Discussion of goals of care with his present, in case of cardiopulmonary arrest he would be okay with defibrillation, he is wearing a LifeVest, however, does not want other components of CPR, chest compressions does not think would be beneficial and does not want them. In case of cardiopulmonary arrest without successful defibrillation would did not case preferred to receive comfort medications and allow nature to take its course. Plan Renal failure: No issues with dialysis. Nephrology note reviewed. Continue TTS. Renal diet. Severe cardiomyopathy: EF 20%. Continues with LifeVest. At risk of CHF. Monitor. Monitor on telemetry due to risk of arrhythmia. Follow-up chemistry, electrolytes. Ulcer right big toe: Continue dressing changes. DM2: Continue long-acting insulin, add Accu-Cheks, sliding scale. He normally uses a Dexcom. Atrial fibrillation: Eliquis. Monitor on telemetry. CAD: Continue statin, Eliquis. PAD: Continue statin, pentoxifylline. He is on Eliquis. Liver cirrhosis COPD: Currently without exacerbation. Duo nebs. HTN: Monitor blood pressures HLD: Continue statin OSITO Venous insufficiency, venous leg ulcers DVT prophylaxis: Continue Eliquis. ER documentation reviewed. Discussed with ER physician. Attestations Medical Necessity Statement*: Continue admission for assessment management of extensive cellulitis of right lower extremity in a gentleman with multiple comorbidities and risk of complication. Diagnoses Cellulitis L03.90 UTI (urinary tract infection) N39.0 Skin tear Hyponatremia E87.1 Hyperkalemia E87.5 Goals of care, counseling/discussion Z71.89
[2022-11-01] VITALS (15 sets, daily range): BP systolic 110–145; BP diastolic 49–68; PULSE 61–72; RESP 16–19; TEMP 36.3–36.6; O2SAT 93–99
[2022-11-01] MEDS: levothyroxine 100 mcg Tablet PO (05:50)
[2022-11-01] MEDS: piperacillin-tazobactam 3.375 GM in sodium chloride 0.9% (plus) 50 ML IV (05:51)
[2022-11-01 06:55] LABS: Glucose Point of Care 171 mg/dL (70-110)
[2022-11-01] MEDS: ipratropium-albuterol 3 mL Neb INHALATION (07:30)
[2022-11-01] MEDS: atorvastatin 40 mg Tablet 20 MG PO (08:26)
[2022-11-01] MEDS: apixaban 5 mg Tablet PO (08:26)
[2022-11-01] MEDS: sevelamer 800 mg Tablet PO ×3 (08:26→21:17)
[2022-11-01] MEDS: polyethylene glycol 3350 Pkt 17 gm PO ×2 (08:26→18:07)
[2022-11-01] MEDS: FUROsemide 40 mg Tablet 80 MG PO ×2 (08:27→18:07)
[2022-11-01] MEDS: pantoprazole DR 40 mg Tablet PO ×2 (08:27→18:08)
[2022-11-01] MEDS: sennosides-docusate Tablet 1 TAB PO ×2 (08:27→18:08)
[2022-11-01] MEDS: insulin lispro 100 unit/1 mL SUBCUT ×4 (08:27→21:16)
[2022-11-01] MEDS: potassium chloride ER 20 mEq Tablet PO ×4 (08:27→19:16)
[2022-11-01] MEDS: NON-FORMULARY MEDICATION (Pentoxifylline 400 mg tablet extended release) 400 EACH PO ×3 (08:45→21:16)
[2022-11-01] MEDS: insulin glargine 100 units/1 mL 10 UNIT SUBCUT (08:45)
[2022-11-01] MEDS: lactulose oral liq 20 gm/30 mL UDC 10 GM PO (10:05)
[2022-11-01] MEDS: oxyCODONE-APAP 10-325 mg Tablet 1 TAB PO ×3 (10:05→21:19)
[2022-11-01 11:45] LABS: Glucose Point of Care 219 mg/dL (70-110)
[2022-11-01 11:53] LABS: Anion Gap 13.3 (5-19); Blood Urea Nitrogen 35 mg/dL (8-23); Calcium 7.7 mg/dL (8.5-10.5); Carbon Dioxide 28 mmol/L (22-29); Chloride 84 mmol/L (98-107); Glucose 232 mg/dL (65-115); Osmolality Calculated 269 mOsm/kg (285-295); Potassium 3.3 mmol/L (3.5-5.1); Sodium 122 mmol/L (136-145)
--- NOTE | 2022-11-01 12:08 | PC.SOCIAL ---
IMM Update pg 2 of IMM updated and reviewed w/ patient. Copy provided and copy in chart dated, and initialed.
[2022-11-01 14:06] LABS: Vancomycin Random 11.7 ug/mL (20.0-40.0)
--- NOTE | 2022-11-01 14:35 | PM.PN ---
Subjective Subjective: Patient is endorsing constipation Currently on 2 L of oxygen Douglas catheter with concentrated urine Patient is due for dialysis tomorrow Creatinine seems to be around baseline now Drop in sodium noted Hyperglycemia Constipation for last 5 days Vitals/I&O/Wt Last Vital Signs Temp 97.6 F 11/01/22 11:32 Pulse 61 11/01/22 11:32 Resp 18 11/01/22 11:32 BP 119/68 11/01/22 11:32 Pulse Ox 99 11/01/22 11:32 O2 Del Method Nasal Cannula 11/01/22 11:32 O2 Flow Rate 3 11/01/22 08:00 10/31/22 11/01/22 11/01/22 22:59 06:59 14:59 Intake Total 540 / 1190 890 / 890 Output Total 500 / 500 1200 / 1700 Balance 40 / 690 -1200 / -510 890 / 890 Weight last 48 hrs Weight 131.905 kg Weight 131.542 kg Physical Exam Narrative: Signs of fluid overload Muscle mass loss Ascites Lower extremity venous stasis dermatitis Right leg cellulitis Right leg covered in dressing Abdomen soft however distended Variable S1-S2 Awake and alert Nonfocal neuro exam Currently on 3 L nasal cannula Douglas catheter in place Urinary Catheter Management: Douglas: Cath Placed During This Visit: yes Reason for Continuing Indwelling Catheter: Other Urinary Catheter Date of Insertion: 10/27/22 Urinary Catheter Time of Insertion: 10:55 Data 10/31/22 04:20 11/01/22 10:58 Micro: Microbiology 10/27/22 10:10 Blood Culture - Final Blood NO GROWTH AFTER 5 DAYS 10/27/22 10:05 Blood Culture - Final Blood NO GROWTH AFTER 5 DAYS 10/27/22 10:00 Urine Culture - Final Urine,Clean Catch Escherichia coli Aleisha tropicalis A&P Assessment and plan (1) ESRD (end stage renal disease): (2) Hyponatremia: (3) Skin tear: (4) Cellulitis: (5) Ulcer of extremity due to chronic venous insufficiency: (6) Chronic ulcer of left foot with fat layer exposed: Plan Right lower leg cellulitis Continues to improve Considering active weeping him will need dressing change every day Mild compressions could be done with Kerlix and ABD along Hydrofera Blue No signs of acute limb ischemia History of peripheral arterial disease End-stage renal disease: Dialysis session tomorrow Normally Tuesday Does make some urine as well Continue antibiotics for E. coli UTI Patient does have skin tear and pressure ulcer present since admission and last admission We could use Allevyn around sacral area Hypervolemic hyponatremia Judicious use of diuretics Currently Lasix on hold Electrolyte imbalance: Improved Previous admission patient had non-STEMI, he has a LifeVest for low EF only wants defibrillation in case of cardiac arrest otherwise no CPR or intubation Family was thinking of choosing palliative care in case of further worsening Ischemic cardiomyopathy acute exacerbation EF 20% Type 2 diabetes, Congestive hepatopathy A-fib on Eliquis Sleep apnea uses CPAP at night Chronic hypoxia on 3 L Discharge back to intermediate tomorrow after dialysis Severe constipation we will do enema today Ascites: Around 8 L were removed on previous admission Attestations Medical Necessity Statement*: Plan to discharge tomorrow after dialysis Diagnoses ESRD (end stage renal disease) N18.6 Hyponatremia E87.1 Skin tear Cellulitis L03.90 Ulcer of extremity due to chronic venous insufficiency L98.499; I87.2 Chronic ulcer of left foot with fat layer exposed L97.522
--- NOTE | 2022-11-01 14:43 | US_ITS ---
WS: [id number] Abdominal ultrasound, limited. History: Evaluate for ascites. Comparison: None. All 4 quadrants are imaged by ultrasound to evaluate for ascites. Very small amount of ascites in the LEFT lower quadrant. US/US abdomen lmt fluid [id number] IMPRESSION: Minimal ascites.
--- NOTE | 2022-11-01 15:06 | PM.PN ---
Subjective Subjective: severe constipation leg weakness Vitals/I&O/Wt Last Vital Signs Temp 97.6 F 11/01/22 11:32 Pulse 65 11/01/22 14:00 Resp 18 11/01/22 11:32 BP 119/68 11/01/22 11:32 Pulse Ox 99 11/01/22 11:32 O2 Del Method Nasal Cannula 11/01/22 11:32 O2 Flow Rate 3 11/01/22 08:00 11/01/22 11/01/22 11/01/22 06:59 14:59 22:59 Intake Total 890 / 890 Output Total 1200 / 1700 Balance -1200 / -510 890 / 890 Weight last 48 hrs Weight 131.905 kg Weight 131.542 kg Physical Exam Const: COMMON NORMALS: no acute distress and alert Extremity: NARRATIVE EXTREMITY EXAM: bilateral leg redness below knees, less edema, feet Moises wrap to mid calf Neuro: SENSORIUM/ORIENTATION: Yes alert Urinary Catheter Management: Douglas: Cath Placed During This Visit: yes Reason for Continuing Indwelling Catheter: Other Urinary Catheter Date of Insertion: 10/27/22 Urinary Catheter Time of Insertion: 10:55 Data 10/31/22 04:20 11/01/22 10:58 Micro: Microbiology 10/27/22 10:10 Blood Culture - Final Blood NO GROWTH AFTER 5 DAYS 10/27/22 10:05 Blood Culture - Final Blood NO GROWTH AFTER 5 DAYS 10/27/22 10:00 Urine Culture - Final Urine,Clean Catch Escherichia coli Aleisha tropicalis Other data: seen via telemedicine with assistance of RN at bedside A&P Assessment and plan (1) ESRD (end stage renal disease): Plan 1. ESRD, HD T//S 2. Hyponatremia, Hypokalemia. 3. Anemia, Hb stable. Iron deficient, add venofer at HD 4. UTI, cellultis on oral antibiotics 5. cardiomyopathy Rec: Increase furosemide 80 mg BID, increase KCl 20 BID. HD tomorrow, 4 h 2.5L UF as BP tolerates Attestations Medical Necessity Statement*: per primary service Time Spent in Patient Care: 16 - 35 minutes Coding Level of Care Code Acute Code for Chg Fwd Diagnoses ESRD (end stage renal disease) N18.6
[2022-11-01 17:17] LABS: Glucose Point of Care 191 mg/dL (70-110)
[2022-11-01] MEDS: tamsulosin 0.4 mg Capsule PO (18:07)
[2022-11-01] MEDS: Fleet Enema 133 mL Enema PR (18:07)
[2022-11-01] MEDS: amoxicillin-clav 875-125 mg Tablet 1 TAB PO (18:07)
--- NOTE | 2022-11-01 19:54 | PC.NURSE ---
pt blood sugar was 197 @ 1954
[2022-11-02] VITALS (13 sets, daily range): BP systolic 113–157; BP diastolic 63–75; PULSE 60–78; RESP 16–22; TEMP 36.4–37; O2SAT 93–99
--- NOTE | 2022-11-02 00:08 | PC.NURSE ---
During hourly rounding the patient's dexcom was alarming and when looked at the patient's blood sugar was 85. The patient was given Apple juice and will reevaluate in approximately 30-45 minutes
--- NOTE | 2022-11-02 05:01 | PC.NURSE ---
The patient has had repeated low blood glucose per his dexcom. The highest has been 85. [place] juice given with last that was the 85 and then now orange juice with a sugar packet at 0500 with his glucose reading 75. Patient is slightly symptomatic. Will recheck in 30 minutes
[2022-11-02] MEDS: levothyroxine 100 mcg Tablet PO (06:06)
[2022-11-02 06:32] LABS: Glucose Point of Care 109 mg/dL (70-110)
--- NOTE | 2022-11-02 06:33 | PC.NURSE ---
pt dexcom read pt blood sugar at 117
[2022-11-02 07:35] LABS: Basophils # 0.1 10^3/uL (0.0-0.1); Basophils % 0.7 %; Eosinophils # 0.3 10^3/uL (0.0-0.8); Eosinophils % 3.5 %; Hematocrit 32.4 % (42.0-52.0); Lymphocytes # 0.9 10^3/uL (0.8-4.8); Lymphocytes % 8.6 %; Mean Corpuscular HGB Conc 30.9 g/dL (30.0-36.0); Mean Corpuscular Hemoglobin 25.6 pg (28.0-34.0); Mean Corpuscular Volume 82.9 fl (80-94); Mean Platelet Volume 9.9 fL (7.4-10.4); Monocytes # 0.7 10^3/uL (0.2-0.9); Monocytes % 6.8 %; Neutrophils # 7.77 10^3/uL (1.8-7.7); Neutrophils % 79.1 %; Nucleated Red Blood Cells % 0 %; Platelet Count 247 10^3/cmm (130-400); Red Blood Count 3.91 10^6/uL (4.1-5.3); Red Cell Distribution Width 19.4 % (12.1-15.1); White Blood Count 9.8 10^3/uL (4.0-10.0)
[2022-11-02 08:09] LABS: Alanine Aminotransferase 7 U/L (0-41); Albumin Level 2.7 g/dL (3.5-5.2); Alkaline Phosphatase 252 U/L (40-130); Anion Gap 14.3 (5-19); Aspartate Amino Transferase 29 U/L (0-40); Blood Urea Nitrogen 32 mg/dL (8-23); Calcium 7.8 mg/dL (8.5-10.5); Carbon Dioxide 29 mmol/L (22-29); Chloride 88 mmol/L (98-107); Globulin 3.2 g/dL (1.3-4.6); Glucose 102 mg/dL (65-115); Osmolality Calculated 273 mOsm/kg (285-295); Potassium 3.3 mmol/L (3.5-5.1); Sodium 128 mmol/L (136-145); Total Bilirubin 1.9 mg/dL (0.15-1.2); Total Protein 5.9 g/dL (6.6-8.7)
--- NOTE | 2022-11-02 10:06 | PM.PN ---
Subjective Subjective: Was not able to go to group home, I canceled my discharge orders Vitals/I&O/Wt Last Vital Signs Temp 9735 F H 11/03/22 08:15 Pulse 70 11/03/22 08:15 Resp 18 11/03/22 08:15 BP 137/60 11/03/22 08:15 Pulse Ox 97 11/03/22 08:15 O2 Del Method Nasal Cannula 11/03/22 08:15 O2 Flow Rate 3 11/03/22 08:00 11/02/22 11/03/22 11/03/22 22:59 06:59 14:59 Intake Total 1350 / 2550.25 480 / 480 Output Total 3082 / 3482 500 / 3982 Balance -1732 / -931.75 -500 / -1431.75 480 / 480 Weight last 48 hrs Weight 130.776 kg Weight 132 kg Weight 131.995 kg Physical Exam Narrative: Volume overloaded Currently on 3 L which is around baseline Ascites Venous stasis dermatitis Right leg hyperemia cellulitis improving Awake and alert Variable S1-S2 Urinary Catheter Management: Douglas: Cath Placed During This Visit: yes Reason for Continuing Indwelling Catheter: Chronic Indwelling Urinary Catheter on Admission Urinary Catheter Date of Insertion: 10/27/22 Urinary Catheter Time of Insertion: 10:55 Data 11/02/22 07:08 11/02/22 07:08 A&P Assessment and plan (1) UTI (urinary tract infection): (2) Cardiorenal syndrome: (3) Goals of care, counseling/discussion: Plan Cardiorenal syndrome Patient is making more than 400 mL of urine every day Spoke with driller multiple spindle Patient might be able to come off dialysis in next 2 to 3 weeks if outpatient nephrology is able to follow-up with the volume status and kidney function on daily basis, he could probably get dialyzed twice a week and then once a week and then he can monitor off dialysis with closer monitoring of volume status acidosis and kidney function Patient is not on hospice He is DNR/DNI UTI he will get p.o. antibiotics Awaiting placement Attestations Medical Necessity Statement*: Awaiting placement Diagnoses UTI (urinary tract infection) N39.0 Cardiorenal syndrome I13.10 Goals of care, counseling/discussion Z71.89
--- NOTE | 2022-11-02 11:25 | PM.DCS ---
Discharge Providers Date of Admission: 10/27/22 13:41 Date of Discharge: November 02, 2022 Attending Provider at Admission: Artemio Lujan Attending Provider at Discharge: Katerine Padilla MD Primary Care Provider: Mary Lou Anaya MD Diagnoses at Discharge Discharge Diagnosis (1) ESRD (end stage renal disease): Status: Acute Reason for Visit [facility] Hospital Course 77-year-old male was recently discharged from the hospital after prolonged hospitalization, patient suffered from ischemic cardiomyopathy, non-STEMI, reduced ejection fraction heart failure exacerbation causing cardiorenal syndrome patient ended up requiring tunneled catheter for dialysis Tuesday and Tuesday, he was discharged to a alf, multiple family meetings were conducted, family was leaning towards opting for palliative care in case he showed further signs of worsening because patient has not been able to walk on his feet because of venous stasis dermatitis, swelling, lethargy and fatigue and p.o. intake was really poor this time he was admitted to the hospital for worsening of cellulitis of bilateral lower extremities right greater than left he was treated with IV antibiotics throughout hospitalization he did not show any sign of sepsis, no signs of abscess, no signs of DVT or vascular ischemia however he does have peripheral arterial disease, he was managed medically, CTA aorta with runoff done in the past with show peripheral vascular disease, patient did not show signs of acute limb ischemia, for his ascites on previous admission paracentesis was requested 8 L were removed however during this visit not enough ascites to be tapped, patient does make urine in 24 hours which is some improvement from last visit, creatinine around baseline, hemoglobin stable Urine culture showed E. coli with Aleisha he required fluconazole in the hospital, for E. coli I will give him 5-day regimen of cefpodoxime 200 mg twice daily Douglas catheter will be removed before his discharge, he is being discharged back to his alf He does carry guarded prognosis Goals of care: DNR/DNI Patient is on Eliquis for his history of A-fib, he does have a pacemaker as well, on previous visit he had 1 episode of bloody bowel movement however his hemoglobin has been stable he will not be a good candidate for EGD or colonoscopy at this point Physical Exam Narrative: Volume overloaded Currently on 3 L which is around baseline Ascites Venous stasis dermatitis Right leg hyperemia cellulitis improving Awake and alert Variable S1-S2 Urinary Catheter Management: Douglas: Cath Placed During This Visit: yes Reason for Continuing Indwelling Catheter: Other Urinary Catheter Date of Insertion: 10/27/22 Urinary Catheter Time of Insertion: 10:55 Discharge Data Studies Completed and Pending Completed Studies During Hospitalization Category Date Time Status XR chest 1V portable [id number] Stat Exams 10/27/22 10:20 Completed US abdomen lmt fluid [id number] Routine Ultrasound 11/01/22 14:43 Completed US arterial duplex lower extremity RT [CV arterial Ultrasound 10/27/22 11:38 [place] [id number]] Stat US venous duplex lower extremity bilat [CV venous Ultrasound 10/27/22 10:19 [place] [id number]] Stat Pending at discharge Category Date Time Status COVID [SARS Covid-2 Antigen] Routine Lab 11/02/22 06:40 Received Radiology Impressions Chest X-Ray 10/27/22 10:20 IMPRESSION: 1. No acute cardiopulmonary finding. Cardiac enlargement unchanged. Duplex Scan Lower Extremity Artery 10/27/22 11:38 IMPRESSION: No stenosis or occlusion. The popliteal segment could not be imaged. Abdomen Ultrasound 11/01/22 14:43 IMPRESSION: Minimal ascites. Laboratory Results WBC 9.8 10^3/uL (4.0-10.0) 11/02/22 07:08 RBC 3.91 10^6/uL (4.1-5.3) L 11/02/22 07:08 Hgb 10.0 g/dL (11.7-16.6) L 11/02/22 07:08 Hct 32.4 % (42.0-52.0) L 11/02/22 07:08 MCV 82.9 fl (80-94) 11/02/22 07:08 MCH 25.6 pg (28.0-34.0) L 11/02/22 07:08 MCHC 30.9 g/dL (30.0-36.0) 11/02/22 07:08 RDW 19.4 % (12.1-15.1) H 11/02/22 07:08 Plt Count 247 10^3/cmm (130-400) 11/02/22 07:08 MPV 9.9 fL (7.4-10.4) 11/02/22 07:08 Neut % (Auto) 79.1 % 11/02/22 07:08 Lymph % (Auto) 8.6 % 11/02/22 07:08 [place] % (Auto) 6.8 % 11/02/22 07:08 Eos % (Auto) 3.5 % 11/02/22 07:08 Baso % (Auto) 0.7 % 11/02/22 07:08 Neut # (Auto) 7.77 10^3/uL (1.8-7.7) H 11/02/22 07:08 Lymph # (Auto) 0.9 10^3/uL (0.8-4.8) 11/02/22 07:08 [place] # (Auto) 0.7 10^3/uL (0.2-0.9) 11/02/22 07:08 Eos # (Auto) 0.3 10^3/uL (0.0-0.8) 11/02/22 07:08 Baso # (Auto) 0.1 10^3/uL (0.0-0.1) 11/02/22 07:08 Nucleated RBC % (auto) 0 % 11/02/22 07:08 Nucleated RBCs # 0.0 /100WBC 11/02/22 07:08 Sodium 128 mmol/L (136-145) L 11/02/22 07:08 Potassium 3.3 mmol/L (3.5-5.1) L 11/02/22 07:08 Chloride 88 mmol/L (98-107) L 11/02/22 07:08 Carbon Dioxide 29 mmol/L (22-29) 11/02/22 07:08 Anion Gap 14.3 (5-19) 11/02/22 07:08 BUN 32 mg/dL (8-23) H 11/02/22 07:08 Creatinine 1.4 mg/dL (0.7-1.2) H 11/02/22 07:08 GFR Calculation Not Reportable 11/02/22 07:08 Glucose 102 mg/dL (65-115) 11/02/22 07:08 POC Glucose 109 mg/dL (70-110) 11/02/22 06:28 Calculated Osmolality 273 mOsm/kg (285-295) L 11/02/22 07:08 Lactic Acid 2.6 mmol/L (0.5-2.2) H 10/27/22 10:05 Lactic Acid (Sepsis) 2.3 mmol/L (0.5-2.2) H 10/27/22 12:37 Calcium 7.8 mg/dL (8.5-10.5) L 11/02/22 07:08 Phosphorus 3.2 mg/dL (2.5-4.5) 10/31/22 04:20 Magnesium 1.8 mg/dL (1.7-2.3) 10/28/22 11:48 Iron 28 ug/dL (59-158) L 10/31/22 04:20 TIBC 187 mcg/dl 10/30/22 03:52 % Saturation 11.7 % (20-50) L 10/30/22 03:52 Unsat Iron Binding 165 ug/dL (112-347) 10/30/22 03:52 Ferritin 53 ng/mL (30-400) 10/31/22 04:20 Total Bilirubin 1.9 mg/dL (0.15-1.2) H 11/02/22 07:08 AST 29 U/L (0-40) 11/02/22 07:08 ALT 7 U/L (0-41) 11/02/22 07:08 Alkaline Phosphatase 252 U/L (40-130) H 11/02/22 07:08 Total Protein 5.9 g/dL (6.6-8.7) L 11/02/22 07:08 Albumin 2.7 g/dL (3.5-5.2) L 11/02/22 07:08 Globulin 3.2 g/dL (1.3-4.6) 11/02/22 07:08 Urine Color Dark yellow (Yellow) 10/27/22 10:00 Urine Appearance Cloudy (CLEAR) A 10/27/22 10:00 Urine pH 5 (5-7) 10/27/22 10:00 Ur Specific [place] 1.020 (1.005-1.030) 10/27/22 10:00 Urine Protein 1+ (Negative) H 10/27/22 10:00 Urine Glucose (UA) Norm (Normal) 10/27/22 10:00 Urine Ketones 1+ (Negative) H 10/27/22 10:00 Urine Blood 3+ (Negative) H 10/27/22 10:00 Urine Nitrate Negative (Negative) 10/27/22 10:00 Urine Bilirubin 1+ (Negative) H 10/27/22 10:00 Urine Urobilinogen 4 mg/dL (Negative) H 10/27/22 10:00 Ur Leukocyte Esterase 2+ (Negative) H 10/27/22 10:00 Urine RBC 10-15 /hpf (0-2) H 10/27/22 10:00 Urine WBC 40-55 /hpf (0-5) H 10/27/22 10:00 Ur Squamous Epith Cells 0-4 /hpf (0-5) H 10/27/22 10:00 Amorphous Sediment Not Reportable 10/27/22 10:00 Urine Bacteria 1+ /hpf (NONE) H 10/27/22 10:00 Urine Mucus 2+ /hpf 10/27/22 10:00 Urine Yeast 3+ /hpf H 10/27/22 10:00 Vancomycin Trough 6.6 ug/mL (10-15) L 10/30/22 03:52 Random Vancomycin 11.7 ug/mL (20.0-40.0) L 11/01/22 13:40 Hep Bs Antigen Non-reactive (Nonreactive) 10/27/22 09:58 Hep Bs Antibody 3.5 (11.5-1000) L 10/27/22 09:58 Hep B Core Total Ab Non-reactive (Nonreactive) 10/27/22 09:58 Vitals Last Vital Signs Temp 98.1 F 11/02/22 08:00 Pulse 63 11/02/22 08:29 Resp 16 11/02/22 08:29 BP 133/63 11/02/22 08:00 Pulse Ox 97 11/02/22 08:29 O2 Del Method Nasal Cannula 11/02/22 08:29 O2 Flow Rate 3 11/02/22 08:29 Discharge Plan Discharge Patient Disposition: Xfer SNF Condition: Stable Prescriptions: New cefpodoxime 200 mg tablet 200 mg PO BID Qty: 10 0RF Rx Instructions: must administer with a meal/food Continued pentoxifylline 400 mg tablet extended release 400 mg PO TID omeprazole 20 mg capsule,delayed release(DR/EC) 40 mg PO BID Eliquis 5 mg tablet 5 mg PO BID Hold Instructions: Resume on 10/14/22. (DME) Dexcom G6 Sensor Device See Rx Instructions .Route Qty: 9 3RF Rx Instructions: change every 10 days (DME) Dexcom G6 Transmitter Device See Rx Instructions .Route Qty: 1 3RF Rx Instructions: change every 3 months (DME) diabetic shoes with 3 custom inserts See Rx Instructions .Route .MEDSUPPLY Qty: 1 0RF Rx Instructions: As directed (DME) Brian compression wraps to right and left See Rx Instructions .Route .MEDSUPPLY Qty: 1 0RF Rx Instructions: As directed (DME) Dexcom G6 [employer] Station Collector Misc See Rx Instructions .Route Qty: 1 0RF Rx Instructions: Check BS 4-6 times a day. (DME) Brian Lymphedema Wraps Bilaterally 2 pairs See Rx Instructions .Route .MEDSUPPLY Qty: 1 0RF Rx Instructions: As directed J P & O capsaicin 0.075 % Cream 1 applic TOPICAL TID PRN (Reason: Pain) Rx Instructions: do not wash area for at least 30 min after application tamsulosin [Flomax] 0.4 mg Capsule 0.4 mg PO QPM lidocaine 5 % Adhesive Patch,Medicated 1 patch TOPICAL DAILY PRN (Reason: Pain) Rx Instructions: leave on most painful area for up to 12 hrs then off for 12 hrs carbamide peroxide 6.5 % Drops See Rx Instructions .ROUTE .COMPLEX Rx Instructions: 2 DROPS BOTH EARS EVERY 4 WEEKS NEEDED FOR WAX BLOCKAGE clotrimazole 1 % Cream 1 applic TOPICAL DAILY PRN (Reason: SCALES ON FEET) guaifenesin 400 mg Tablet 400 mg PO TID lactulose 10 gram/15 mL Solution 15 ml PO DAILY PRN (Reason: Constipation) Levemir FlexTouch U-100 Insuln 100 unit/mL (3 mL) insulin pen 10 unit SUBCUT QAM Qty: 15 0RF sevelamer carbonate [Renvela] 800 mg tablet 800 mg PO TID Qty: 90 0RF Rx Instructions: must administer with a meal/food levothyroxine 100 mcg Tablet 100 mcg PO QAM insulin aspart U-100 [Novolog FlexPen U-100 Insulin] 100 unit/mL (3 mL) Insulin Pen See Rx Instructions .ROUTE .COMPLEX Rx Instructions: mild sliding scale four times a day and at bedtime as needed for blood sugar atorvastatin 40 mg Tablet 20 mg PO BEDTIME bumetanide 2 mg tablet 2 mg PO DAILY omeprazole 20 mg Capsule,Delayed Release(Dr/Ec) 20 mg PO BID vitamin E 670 mg (1,000 unit) Capsule 670 mg PO DAILY carvedilol 3.125 mg Tablet 3.125 mg PO BID Rx Instructions: must administer with a meal/food oxycodone-acetaminophen 10-325 mg Tablet 1 tab PO TID PRN (Reason: Pain) sodium bicarbonate 650 mg Tablet 650 mg PO BID acarbose 100 mg Tablet 100 mg PO TID Rx Instructions: Give before meals Dulcolax (bisacodyl) 10 mg Suppository 10 mg AL DAILY PRN (Reason: Constipation) Vitamin D3 10 mcg (400 unit) Tablet 20 mcg PO DAILY [place] 3 Capsule 1,000 mg PO BID zinc 50 mg Capsule 50 mg PO DAILY Cinnamon Bark 500 mg capsule 500 mg PO BID PRN (Reason: Diarrhea) Discharge Orders: Discharge Order (Routine); Ordered 11/02/22 Ordered By: Katerine Padilla Referrals: Mary Lou Anaya MD [Primary Care Provider] - Discharge Attestations Time Spent in Discharge Care*: greater than 30 min Status at Discharge: Cognitive status at discharge: cognitively intact, Behavioral status at discharge: cooperative, Quality Metrics Clinical Quality Measures [ No reported AMI, CVA or VTE this stay] Coding Level of Care Code Acute Code for Chg Fwd Diagnoses ESRD (end stage renal disease) N18.6
[2022-11-02 12:05] LABS: Glucose Point of Care 104 mg/dL (70-110)
[2022-11-02] MEDS: heparin, porcine 1,000 unit/mL INJ 10 mL 1000 UNIT IV (12:12)
[2022-11-02] MEDS: sodium chloride 0.9% 1,000 ML 30 ML IV (12:12)
[2022-11-02] MEDS: epoetin alfa (ESRD) 5,000 UNIT in SYRINGE 1 EACH 60 UNIT IVP (12:16)
[2022-11-02] MEDS: lactulose oral liq 20 gm/30 mL UDC 10 GM PO (13:00)
[2022-11-02] MEDS: polyethylene glycol 3350 Pkt 17 gm PO ×2 (13:01→17:30)
[2022-11-02] MEDS: amoxicillin-clav 875-125 mg Tablet 1 TAB PO ×2 (13:01→17:30)
[2022-11-02] MEDS: atorvastatin 40 mg Tablet 20 MG PO (13:02)
[2022-11-02] MEDS: FUROsemide 40 mg Tablet 80 MG PO ×2 (13:02→17:30)
[2022-11-02] MEDS: pantoprazole DR 40 mg Tablet PO ×2 (13:02→17:30)
[2022-11-02] MEDS: sennosides-docusate Tablet 1 TAB PO ×2 (13:02→17:30)
[2022-11-02] MEDS: sevelamer 800 mg Tablet PO ×3 (13:02→21:15)
[2022-11-02] MEDS: potassium chloride ER 20 mEq Tablet PO ×2 (13:03→17:30)
[2022-11-02] MEDS: insulin glargine 100 units/1 mL 10 UNIT SUBCUT (13:03)
[2022-11-02] MEDS: NON-FORMULARY MEDICATION (Pentoxifylline 400 mg tablet extended release) 400 EACH PO ×2 (13:03→17:30)
[2022-11-02 14:26] LABS: SARS Covid-2 Antigen negative (Negative)
--- NOTE | 2022-11-02 14:35 | PM.PN ---
Subjective Subjective: feeling better, uneventful HD today awaiting rehab placement Vitals/I&O/Wt Last Vital Signs Temp 97.5 F L 11/02/22 12:00 Pulse 61 11/02/22 12:00 Resp 16 11/02/22 12:00 BP 115/75 11/02/22 12:00 Pulse Ox 93 11/02/22 12:00 O2 Del Method Nasal Cannula 11/02/22 12:00 O2 Flow Rate 3 11/02/22 08:29 11/01/22 11/02/22 11/02/22 22:59 06:59 14:59 Intake Total 600 / 1490 120 / 1610 1200.25 / 1200.25 Output Total 600 / 600 1000 / 1600 400 / 400 Balance 0 / 890 -880 / 10 800.25 / 800.25 Weight last 48 hrs Weight 131.995 kg Weight 131.905 kg Physical Exam Const: COMMON NORMALS: no acute distress and alert HENMT: OTHER: right IJ tunneled PC Extremity: NARRATIVE EXTREMITY EXAM: redness both lower legs, + edema Neuro: SENSORIUM/ORIENTATION: Yes alert Urinary Catheter Management: Douglas: Cath Placed During This Visit: yes Reason for Continuing Indwelling Catheter: Other Urinary Catheter Date of Insertion: 10/27/22 Urinary Catheter Time of Insertion: 10:55 Data 11/02/22 07:08 11/02/22 07:08 Micro: Microbiology 10/27/22 10:10 Blood Culture - Final Blood NO GROWTH AFTER 5 DAYS 10/27/22 10:05 Blood Culture - Final Blood NO GROWTH AFTER 5 DAYS Other data: seen via telemedicine with assistance of RN at bedside A&P Assessment and plan (1) ESRD (end stage renal disease): Plan 1. ESRD, HD T// 2. Hyponatremia, Hypokalemia. 3. Anemia, Hb stable. Iron deficient, add venofer at HD 4. UTI, cellultis on oral antibiotics 5. cardiomyopathy Rec: Continue furosemide 80 mg BID, KCl 20 BID. next HD , 4 h 2.5L UF as BP tolerates Attestations Medical Necessity Statement*: per primary service Time Spent in Patient Care: 16 - 35 minutes Coding Level of Care Code Acute Code for Chg Fwd Diagnoses ESRD (end stage renal disease) N18.6
[2022-11-02] MEDS: oxyCODONE-APAP 10-325 mg Tablet 1 TAB PO ×2 (15:33→21:15)
[2022-11-02] MEDS: vancomycin 750 MG in sodium chloride 0.9% 250 ML 250 MG IV (15:34)
[2022-11-02 16:12] LABS: Glucose Point of Care 160 mg/dL (70-110)
[2022-11-02] MEDS: insulin lispro 100 unit/1 mL SUBCUT ×2 (17:30→21:15)
[2022-11-02] MEDS: tamsulosin 0.4 mg Capsule PO (17:30)
[2022-11-02 20:25] LABS: Glucose Point of Care 263 mg/dL (70-110)
[2022-11-03] VITALS (10 sets, daily range): BP systolic 107–155; BP diastolic 60–75; PULSE 62–83; RESP 18–19; TEMP 36.4–37; O2SAT 96–98
[2022-11-03] MEDS: levothyroxine 100 mcg Tablet PO (06:06)
[2022-11-03 06:36] LABS: Glucose Point of Care 104 mg/dL (70-110)
[2022-11-03] MEDS: NON-FORMULARY MEDICATION (Pentoxifylline 400 mg tablet extended release) 400 EACH PO ×3 (08:47→20:58)
[2022-11-03] MEDS: sevelamer 800 mg Tablet PO ×3 (08:47→20:58)
[2022-11-03] MEDS: pantoprazole DR 40 mg Tablet PO ×2 (08:47→17:06)
[2022-11-03] MEDS: amoxicillin-clav 875-125 mg Tablet 1 TAB PO ×2 (08:47→17:05)
[2022-11-03] MEDS: FUROsemide 40 mg Tablet 80 MG PO ×2 (08:48→17:06)
[2022-11-03] MEDS: potassium chloride ER 20 mEq Tablet PO ×3 (08:48→17:06)
[2022-11-03] MEDS: atorvastatin 40 mg Tablet 20 MG PO (08:49)
[2022-11-03] MEDS: sennosides-docusate Tablet 1 TAB PO ×3 (08:50→17:06)
[2022-11-03] MEDS: polyethylene glycol 3350 Pkt 17 gm PO ×2 (08:51→17:05)
[2022-11-03] MEDS: insulin glargine 100 units/1 mL 10 UNIT SUBCUT (08:52)
--- NOTE | 2022-11-03 08:55 | PC.NURSE ---
Dexacom blood glucose reading prior to glargine was 196
[2022-11-03] MEDS: nystatin cream 30 gm 1 APPLIC TOPICAL ×2 (10:01→20:58)
--- NOTE | 2022-11-03 11:13 | PC.SOCIAL ---
IMM update IMM updated with patient. Copy Pg 2 provided. Verbalized an understanding. Initialled, dated, timed, and placed in chart.
--- NOTE | 2022-11-03 11:33 | PM.PN ---
Subjective Subjective: Creatinine below baseline Adequate urine output Spoke with Financial Aid Coordinator Patient is actually waiting for placement No overnight events Vitals/I&O/Wt Last Vital Signs Temp 97.6 F 11/03/22 11:27 Pulse 71 11/03/22 11:27 Resp 18 11/03/22 11:27 BP 120/67 11/03/22 11:27 Pulse Ox 96 11/03/22 11:27 O2 Del Method Nasal Cannula 11/03/22 11:27 O2 Flow Rate 3 11/03/22 08:00 11/02/22 11/03/22 11/03/22 22:59 06:59 14:59 Intake Total 1350 / 2550.25 480 / 480 Output Total 3082 / 3482 500 / 3982 Balance -1732 / -931.75 -500 / -1431.75 480 / 480 Weight last 48 hrs Weight 130.776 kg Weight 132 kg Weight 131.995 kg Physical Exam Narrative: Awake and alert Volume overloaded Douglas catheter in place which will be removed before his discharge Awake and alert GCS 15 Currently on 2 L of oxygen No acute complaints Urinary Catheter Management: Douglas: Cath Placed During This Visit: yes Reason for Continuing Indwelling Catheter: Chronic Indwelling Urinary Catheter on Admission Urinary Catheter Date of Insertion: 10/27/22 Urinary Catheter Time of Insertion: 10:55 Data 11/02/22 07:08 11/02/22 07:08 A&P Assessment and plan (1) Cardiorenal syndrome: (2) UTI (urinary tract infection): (3) Cellulitis: Plan Patient will finish antibiotics outpatient for cellulitis For cardiorenal syndrome with outpatient close follow-up we can decide whether he could be transitioned off dialysis because he is making adequate urine Creatinine is below baseline He is still fluid overloaded, no ascites to be drained No significant acidosis Kidney function seems to be getting better UTI treated DNR/DNI Patient is not on hospice Attestations Medical Necessity Statement*: Continue medical management Diagnoses Cardiorenal syndrome I13.10 UTI (urinary tract infection) N39.0 Cellulitis L03.90
[2022-11-03 11:47] LABS: Glucose Point of Care 320 mg/dL (70-110)
[2022-11-03] MEDS: insulin lispro 100 unit/1 mL SUBCUT ×2 (11:54→17:06)
--- NOTE | 2022-11-03 16:10 | PC.NURSE ---
This nurse rounded with Dr. Hall. Dr. Hall stated she was okay with patient discharging without dialysis as long as labs were drawn outpatient at least bi-weekly, a strict renal diet was followed, limited fluid intake, and a follow-up appointment made with a dramatic coach. This was passed onto case management.
[2022-11-03] MEDS: tamsulosin 0.4 mg Capsule PO (17:06)
--- NOTE | 2022-11-03 20:19 | PM.PN ---
Subjective Subjective: no nw complaints Medications: Reviewed: Yes Vitals/I&O/Wt Last Vital Signs Temp 97.8 F 11/03/22 20:00 Pulse 62 11/03/22 20:00 Resp 18 11/03/22 20:00 BP 155/75 11/03/22 20:00 Pulse Ox 97 11/03/22 20:00 O2 Del Method Room Air 11/03/22 20:00 O2 Flow Rate 3 11/03/22 08:00 11/03/22 11/03/22 11/03/22 06:59 14:59 22:59 Intake Total 1200 / 1200 240 / 1440 Output Total 500 / 3982 Balance -500 / -1431.75 1200 / 1200 240 / 1440 Weight last 48 hrs Weight 130.776 kg Weight 132 kg Weight 131.995 kg Physical Exam Const: COMMON NORMALS: no acute distress and alert HENMT: OTHER: right IJ tunneled PC Extremity: NARRATIVE EXTREMITY EXAM: redness both lower legs, + edema Neuro: SENSORIUM/ORIENTATION: Yes alert Urinary Catheter Management: Douglas: Cath Placed During This Visit: yes Reason for Continuing Indwelling Catheter: Chronic Indwelling Urinary Catheter on Admission Urinary Catheter Date of Insertion: 10/27/22 Urinary Catheter Time of Insertion: 10:55 Data 11/02/22 07:08 11/02/22 07:08 A&P Assessment and plan (1) ESRD (end stage renal disease): Plan 1. ESRD, HD T/Th/S 2. Hyponatremia, Hypokalemia. 3. Anemia, Hb stable. Iron deficient, add venofer at HD 4. UTI, cellultis on oral antibiotics 5. cardiomyopathy Rec: Continue furosemide 80 mg BID, KCl 20 BID. Given pt still has residual renal fuction and Cr low , could try holding hD will close lab monitoring and Nephrology f/u in 1-2 weeks If pt discharged to [place] , recommend BMP twice/week and arrange Nephrology follownup. Attestations Medical Necessity Statement*: per medicine Coding Level of Care Code Acute Code for Chg Fwd Diagnoses ESRD (end stage renal disease) N18.6
[2022-11-04] VITALS (10 sets, daily range): BP systolic 109–143; BP diastolic 50–75; PULSE 60–92; RESP 12–19; TEMP 36.4–37.1; O2SAT 91–98
[2022-11-04 05:40] LABS: Anion Gap 16.3 (5-19); Blood Urea Nitrogen 29 mg/dL (8-23); Calcium 8.3 mg/dL (8.5-10.5); Carbon Dioxide 29 mmol/L (22-29); Chloride 88 mmol/L (98-107); Glucose 154 mg/dL (65-115); Osmolality Calculated 277 mOsm/kg (285-295); Potassium 4.3 mmol/L (3.5-5.1); Sodium 129 mmol/L (136-145)
[2022-11-04 09:28] LABS: Glucose Point of Care 199 mg/dL (70-110)
[2022-11-04] MEDS: insulin lispro 100 unit/1 mL SUBCUT ×4 (09:36→20:32)
[2022-11-04] MEDS: levothyroxine 100 mcg Tablet PO (09:37)
[2022-11-04] MEDS: sevelamer 800 mg Tablet PO ×3 (09:37→20:32)
[2022-11-04] MEDS: atorvastatin 40 mg Tablet 20 MG PO (09:37)
[2022-11-04] MEDS: FUROsemide 40 mg Tablet 80 MG PO ×2 (09:37→16:56)
[2022-11-04] MEDS: amoxicillin-clav 875-125 mg Tablet 1 TAB PO ×2 (09:37→16:57)
[2022-11-04] MEDS: insulin glargine 100 units/1 mL 10 UNIT SUBCUT (09:39)
[2022-11-04] MEDS: potassium chloride ER 20 mEq Tablet PO ×4 (09:40→16:57)
[2022-11-04] MEDS: sennosides-docusate Tablet 1 TAB PO (09:40)
[2022-11-04] MEDS: pantoprazole DR 40 mg Tablet PO ×2 (09:40→16:57)
[2022-11-04] MEDS: nystatin cream 30 gm 1 APPLIC TOPICAL ×2 (09:40→16:57)
[2022-11-04] MEDS: polyethylene glycol 3350 Pkt 17 gm PO (09:41)
[2022-11-04] MEDS: NON-FORMULARY MEDICATION (Pentoxifylline 400 mg tablet extended release) 400 EACH PO ×2 (10:23→16:23)
--- NOTE | 2022-11-04 11:48 | P.PN_ITS ---
Subjective Subjective: Awaiting placement No overnight events Monitoring off dialysis Vitals/I&O/Wt Last Vital Signs Temp 97.9 F 11/04/22 03:48 Pulse 83 11/04/22 08:49 Resp 16 11/04/22 08:49 BP 143/75 11/04/22 03:48 Pulse Ox 98 11/04/22 08:49 O2 Del Method Nasal Cannula 11/04/22 08:49 O2 Flow Rate 3 11/04/22 08:49 11/03/22 11/04/22 11/04/22 22:59 06:59 14:59 Intake Total 1240 / 2440 240 / 240 Output Total 275 / 275 275 / 550 Balance 965 / 2165 -275 / 1890 240 / 240 Weight last 48 hrs Weight 130.776 kg Weight 132 kg Physical Exam Narrative: Awake and alert No new complaints Patient laying in his bed without any active complaints Distended abdomen without tenderness Lower extremity redness and cellulitis improving S1, S2 variable Currently on 2 L of oxygen Urinary Catheter Management: Douglas: Cath Placed During This Visit: yes Reason for Continuing Indwelling Catheter: Chronic Indwelling Urinary Catheter on Admission Urinary Catheter Date of Insertion: 10/27/22 Urinary Catheter Time of Insertion: 10:55 Data 11/02/22 07:08 11/04/22 04:27 A&P Assessment and plan (1) Cardiorenal syndrome: (2) UTI (urinary tract infection): Plan Our current plan is to discharge him to skilled nursing, he will be monitored off dialysis with biweekly labs close follow-up with nephrology to monitor his acidosis and volume status Patient is making urine He may continue antibiotics for his UTI: E. coli sensitive to Augmentin Patient received fluconazole for his Aleisha infection Patient is DNR/DNI Medically cleared to be discharged Awaiting placement Attestations Medical Necessity Statement*: Awaiting placement Coding Level of Care Code 06259 Straight Forward/Low MDM includes number and complexity of problems actively addressed during encounter, amount and/or complexity of data reviewed/ordered and described risk of complication, morbidity or mortality of management as doc umented Diagnoses Cardiorenal syndrome I13.10 UTI (urinary tract infection) N39.0
--- NOTE | 2022-11-04 12:47 | PC.NURSE ---
bloodsugar checked through dexcom, bloodsugar currently is 198, insulin administered per sliding scale
[2022-11-04] MEDS: vancomycin 750 MG in sodium chloride 0.9% 250 ML 250 MG IV (16:25)
[2022-11-04] MEDS: oxyCODONE-APAP 10-325 mg Tablet 1 TAB PO (16:56)
[2022-11-04] MEDS: tamsulosin 0.4 mg Capsule PO (16:57)
[2022-11-05] VITALS (9 sets, daily range): BP systolic 108–141; BP diastolic 71–77; PULSE 60–84; RESP 16–18; TEMP 36.4–36.8; O2SAT 97–98
--- NOTE | 2022-11-05 03:27 | P.PN_ITS ---
Subjective Subjective: no new complaints Medications: Reviewed: Yes Vitals/I&O/Wt Last Vital Signs Temp 98.1 F 11/04/22 20:00 Pulse 78 11/05/22 02:05 Resp 16 11/05/22 02:05 BP 109/50 11/04/22 20:00 Pulse Ox 97 11/05/22 02:05 O2 Del Method CPAP 11/05/22 02:05 O2 Flow Rate 3 11/05/22 02:05 11/04/22 11/04/22 11/05/22 14:59 22:59 06:59 Intake Total 720 / 720 970 / 1690 Output Total 750 / 750 Balance 720 / 720 220 / 940 Weight last 48 hrs Weight 130.776 kg Physical Exam Const: COMMON NORMALS: no acute distress and alert HENMT: OTHER: right IJ tunneled PC Extremity: NARRATIVE EXTREMITY EXAM: redness both lower legs, + edema Neuro: SENSORIUM/ORIENTATION: Yes alert Urinary Catheter Management: Douglas: Cath Placed During This Visit: yes Reason for Continuing Indwelling Catheter: Other Urinary Catheter Date of Insertion: 10/27/22 Urinary Catheter Time of Insertion: 10:55 Data 11/02/22 07:08 11/05/22 04:45 A&P Assessment and plan (1) ESRD (end stage renal disease): Plan 1. ESRD, HD T// 2. Hyponatremia, Hypokalemia. 3. Anemia, Hb stable. Iron deficient, add venofer at HD 4. UTI, cellultis on oral antibiotics 5. cardiomyopathy Rec: Continue furosemide 80 mg BID, KCl 20 BID. Given pt still has residual renal fuction and Cr low , holding hD for now and will close lab monitorin g and Nephrology f/u in 1-2 weeks If pt discharged to [place] , recommend BMP twice/week and arrange Nephrology foll ownup. last HD on tuesday Attestations Medical Necessity Statement*: per medicine Coding Level of Care Code Acute Code for g Fwd Diagnoses ESRD (end stage renal disease) N18.6
[2022-11-05 05:55] LABS: Anion Gap 16.5 (5-19); Blood Urea Nitrogen 33 mg/dL (8-23); Calcium 8.3 mg/dL (8.5-10.5); Carbon Dioxide 30 mmol/L (22-29); Chloride 89 mmol/L (98-107); Glucose 79 mg/dL (65-115); Osmolality Calculated 278 mOsm/kg (285-295); Potassium 4.5 mmol/L (3.5-5.1); Sodium 131 mmol/L (136-145)
[2022-11-05] MEDS: levothyroxine 100 mcg Tablet PO (07:22)
[2022-11-05] MEDS: insulin lispro 100 unit/1 mL SUBCUT ×3 (09:57→20:31)
--- NOTE | 2022-11-05 10:24 | PC.SOCIAL ---
IMM update IMM updated with patient. Verbalized an understanding. Copy Pg 2 provided. Initialled, dated, timed, and placed in chart.
[2022-11-05] MEDS: amoxicillin-clav 875-125 mg Tablet 1 TAB PO ×2 (10:28→18:05)
[2022-11-05] MEDS: sevelamer 800 mg Tablet PO ×3 (10:28→20:31)
[2022-11-05] MEDS: potassium chloride ER 20 mEq Tablet PO ×3 (10:28→18:05)
[2022-11-05] MEDS: FUROsemide 40 mg Tablet 80 MG PO ×2 (10:28→18:05)
[2022-11-05] MEDS: pantoprazole DR 40 mg Tablet PO ×2 (10:29→18:05)
[2022-11-05] MEDS: atorvastatin 40 mg Tablet 20 MG PO (10:29)
[2022-11-05] MEDS: NON-FORMULARY MEDICATION (Pentoxifylline 400 mg tablet extended release) 400 EACH PO ×3 (10:30→20:30)
[2022-11-05] MEDS: insulin glargine 100 units/1 mL 10 UNIT SUBCUT (10:31)
--- NOTE | 2022-11-05 10:52 | PM.PN ---
Subjective Subjective: Patient is being monitored off dialysis Creatinine 1.5 No overnight events Patient endorsing feeling better Douglas catheter draining concentrated urine 950ml UO Vitals/I&O/Wt Last Vital Signs Temp 97.7 F 11/05/22 07:18 Pulse 80 11/05/22 08:00 Resp 16 11/05/22 08:00 BP 115/77 11/05/22 07:18 Pulse Ox 97 11/05/22 08:00 O2 Del Method Nasal Cannula 11/05/22 08:00 O2 Flow Rate 3 11/05/22 08:00 11/04/22 11/05/22 11/05/22 22:59 06:59 14:59 Intake Total 970 / 1690 480 / 480 Output Total 750 / 750 200 / 950 Balance 220 / 940 -200 / 740 480 / 480 Weight last 48 hrs Weight 132.024 kg Physical Exam Narrative: Patient is on 2 L of oxygen No active complaint S1, S2 Abdomen distended nontender Douglas catheter in place GCS 15 Nonfocal neuro exam Patient is pleasant and cooperative Urinary Catheter Management: Douglas: Cath Placed During This Visit: yes Reason for Continuing Indwelling Catheter: Other Urinary Catheter Date of Insertion: 10/27/22 Urinary Catheter Time of Insertion: 10:55 Data 11/02/22 07:08 11/05/22 04:45 A&P Assessment and plan (1) Cardiorenal syndrome: (2) UTI (urinary tract infection): (3) Cellulitis: Plan Patient is medically cleared to be discharged once accepted Creatinine stable Adequate urine output Being monitored off dialysis For cellulitis we will give him p.o. antibiotics at the time of discharge Attestations Medical Necessity Statement*: Awaiting placement Diagnoses Cardiorenal syndrome I13.10 UTI (urinary tract infection) N39.0 Cellulitis L03.90
[2022-11-05] MEDS: albumin 25 G/100 ML VIAL IV ×2 (12:42→20:31)
[2022-11-05] MEDS: tamsulosin 0.4 mg Capsule PO (18:05)
[2022-11-06] VITALS (12 sets, daily range): BP systolic 117–145; BP diastolic 56–78; PULSE 58–80; RESP 16–20; TEMP 36.3–36.8; O2SAT 94–98
[2022-11-06] MEDS: albumin 25 G/100 ML VIAL IV ×3 (03:48→20:22)
[2022-11-06 04:16] LABS: Anion Gap 14.4 (5-19); Blood Urea Nitrogen 33 mg/dL (8-23); Calcium 8.3 mg/dL (8.5-10.5); Carbon Dioxide 28 mmol/L (22-29); Chloride 89 mmol/L (98-107); Glucose 92 mg/dL (65-115); Osmolality Calculated 271 mOsm/kg (285-295); Potassium 4.4 mmol/L (3.5-5.1); Sodium 127 mmol/L (136-145)
[2022-11-06 04:20] LABS: Vancomycin Trough 8.8 ug/mL (10-15)
[2022-11-06] MEDS: levothyroxine 100 mcg Tablet PO (06:07)
--- NOTE | 2022-11-06 07:04 | PM.PN ---
Subjective Subjective: Adequate urine output Creatinine stable Patient ready to be discharged once accepted No significant events Vitals/I&O/Wt Last Vital Signs Temp 98.3 F 11/06/22 04:00 Pulse 63 11/06/22 04:00 Resp 16 11/06/22 04:00 BP 119/73 11/06/22 04:00 Pulse Ox 97 11/06/22 04:00 O2 Del Method BiPAP 11/06/22 04:00 O2 Flow Rate 3 11/05/22 20:46 11/05/22 11/06/22 11/06/22 22:59 06:59 14:59 Intake Total 600 / 1660 200 / 1860 Output Total 1000 / 1000 300 / 1300 Balance -400 / 660 -100 / 560 Weight last 48 hrs Weight 131.117 kg Weight 132.024 kg Physical Exam Narrative: Patient awake and alert Currently on 2 L GCS 15 Nonfocal neuro exam Cellulitis seems to be improving Venous stasis dermatitis Abdomen soft however distended S1, S2 variable Urinary Catheter Management: Douglas: Cath Placed During This Visit: yes Reason for Continuing Indwelling Catheter: Other Urinary Catheter Date of Insertion: 10/27/22 Urinary Catheter Time of Insertion: 10:55 Data 11/02/22 07:08 11/06/22 03:45 A&P Assessment and plan (1) Cardiorenal syndrome: (2) UTI (urinary tract infection): (3) Goals of care, counseling/discussion: Plan Awaiting placement Adequate urine output No need of dialysis No signs of worsening of fluid overload, creatinine stable, adequate urine output Awaiting placement DNR/DNI Continue antibiotics for UTI Attestations Medical Necessity Statement*: Awaiting placement Diagnoses Cardiorenal syndrome I13.10 UTI (urinary tract infection) N39.0 Goals of care, counseling/discussion Z71.89
[2022-11-06] MEDS: polyethylene glycol 3350 Pkt 17 gm PO ×2 (08:10→18:05)
[2022-11-06] MEDS: potassium chloride ER 20 mEq Tablet PO ×2 (08:11→18:05)
[2022-11-06] MEDS: atorvastatin 40 mg Tablet 20 MG PO (08:11)
[2022-11-06] MEDS: sennosides-docusate Tablet 1 TAB PO ×2 (08:11→18:05)
[2022-11-06] MEDS: FUROsemide 40 mg Tablet 80 MG PO ×2 (08:12→18:05)
[2022-11-06] MEDS: amoxicillin-clav 875-125 mg Tablet 1 TAB PO ×2 (08:12→18:06)
[2022-11-06] MEDS: insulin glargine 100 units/1 mL 10 UNIT SUBCUT (08:12)
[2022-11-06] MEDS: NON-FORMULARY MEDICATION (Pentoxifylline 400 mg tablet extended release) 400 EACH PO ×3 (08:12→20:16)
[2022-11-06] MEDS: pantoprazole DR 40 mg Tablet PO ×2 (08:12→18:05)
[2022-11-06] MEDS: sevelamer 800 mg Tablet PO ×3 (08:12→20:16)
[2022-11-06] MEDS: nystatin cream 30 gm 1 APPLIC TOPICAL ×2 (08:14→18:05)
[2022-11-06] MEDS: insulin lispro 100 unit/1 mL SUBCUT ×4 (08:32→20:29)
[2022-11-06 08:41] LABS: Glucose Point of Care 147 mg/dL (70-110)
--- NOTE | 2022-11-06 11:22 | PM.PN ---
Subjective Subjective: Complains of shortness of breath with exertion Medications: Reviewed: Yes Vitals/I&O/Wt Last Vital Signs Temp 98.0 F 11/06/22 07:30 Pulse 62 11/06/22 07:30 Resp 20 H 11/06/22 07:30 BP 117/57 11/06/22 07:30 Pulse Ox 96 11/06/22 08:10 O2 Del Method Nasal Cannula 11/06/22 08:10 O2 Flow Rate 3 11/06/22 08:10 11/05/22 11/06/22 11/06/22 22:59 06:59 14:59 Intake Total 600 / 1660 200 / 1860 240 / 240 Output Total 1000 / 1000 300 / 1300 Balance -400 / 660 -100 / 560 240 / 240 Weight last 48 hrs Weight 131.117 kg Weight 132.024 kg Physical Exam Narrative: Awake alert, no acute distress Const: COMMON NORMALS: no acute distress and alert HENMT: OTHER: right IJ tunneled PC Extremity: NARRATIVE EXTREMITY EXAM: redness both lower legs, + edema Neuro: SENSORIUM/ORIENTATION: Yes alert Urinary Catheter Management: Douglas: Cath Placed During This Visit: yes Reason for Continuing Indwelling Catheter: Other Urinary Catheter Date of Insertion: 10/27/22 Urinary Catheter Time of Insertion: 10:55 Data 11/02/22 07:08 11/06/22 03:45 A&P Assessment and plan (1) ESRD (end stage renal disease): Plan 1. ESRD, HD T/Th/S 2. Hyponatremia, Hypokalemia. 3. Anemia, Hb stable. Iron deficient, add venofer at HD 4. UTI, cellultis on oral antibiotics 5. cardiomyopathy Rec: Continue furosemide 80 mg BID, KCl 20 BID. Given pt still has residual renal fuction and Cr low , holding hD for now with l close lab monitoring and Nephrology f/u in 1-2 weeks If pt discharged to [place] , recommend BMP twice/week and arrange Nephrology follownup. last HD on tuesday Maintain even fluid balance, continue Lasix Attestations Medical Necessity Statement*: Per medicine Coding Level of Care Code Acute Code for Chg Fwd Diagnoses ESRD (end stage renal disease) N18.6
[2022-11-06] MEDS: oxyCODONE-APAP 10-325 mg Tablet 1 TAB PO ×2 (12:00→20:16)
[2022-11-06] MEDS: vancomycin 1,000 MG in sodium chloride 0.9% 250 ML 250 MG IV (16:14)
[2022-11-06] MEDS: acetaminophen 325 mg Tablet 650 MG PO (16:19)
[2022-11-06] MEDS: tamsulosin 0.4 mg Capsule PO (18:05)
--- NOTE | 2022-11-06 18:05 | PC.NURSE ---
Blood sugar checked off patients dexcom read at 183, 4 units administered off sliding scale.
[2022-11-07] VITALS (14 sets, daily range): BP systolic 108–133; BP diastolic 52–74; PULSE 58–77; RESP 17–20; TEMP 35.7–36.8; O2SAT 93–98
[2022-11-07] MEDS: albumin 25 G/100 ML VIAL IV ×3 (04:05→20:59)
[2022-11-07] MEDS: levothyroxine 100 mcg Tablet PO (05:53)
[2022-11-07] MEDS: NON-FORMULARY MEDICATION (Pentoxifylline 400 mg tablet extended release) 400 EACH PO ×3 (08:48→20:58)
[2022-11-07] MEDS: polyethylene glycol 3350 Pkt 17 gm PO ×2 (08:48→17:22)
[2022-11-07] MEDS: insulin lispro 100 unit/1 mL SUBCUT ×3 (08:49→20:58)
[2022-11-07] MEDS: amoxicillin-clav 875-125 mg Tablet 1 TAB PO ×2 (08:49→17:23)
[2022-11-07] MEDS: sevelamer 800 mg Tablet PO ×3 (08:49→20:58)
[2022-11-07] MEDS: insulin glargine 100 units/1 mL 10 UNIT SUBCUT (08:49)
[2022-11-07] MEDS: FUROsemide 40 mg Tablet 80 MG PO ×2 (08:50→17:23)
[2022-11-07] MEDS: atorvastatin 40 mg Tablet 20 MG PO (08:50)
[2022-11-07] MEDS: pantoprazole DR 40 mg Tablet PO ×2 (08:50→17:23)
[2022-11-07] MEDS: sennosides-docusate Tablet 1 TAB PO ×2 (08:50→17:23)
[2022-11-07] MEDS: potassium chloride ER 20 mEq Tablet PO ×2 (08:51→17:23)
[2022-11-07] MEDS: nystatin cream 30 gm 1 APPLIC TOPICAL ×2 (08:51→17:22)
--- NOTE | 2022-11-07 10:43 | PC.SOCIAL ---
IMM Updated Updated pt on IMM. No questions voiced. Provided pt a copy. Initialed, dated, & timed copy in chart.
[2022-11-07] MEDS: oxyCODONE-APAP 10-325 mg Tablet 1 TAB PO ×3 (10:47→22:34)
[2022-11-07 11:14] LABS: Blood Urea Nitrogen 36 mg/dL (8-23); Calcium 8.5 mg/dL (8.5-10.5); Carbon Dioxide 25 mmol/L (22-29); Chloride 90 mmol/L (98-107); Glucose 144 mg/dL (65-115); Osmolality Calculated 281 mOsm/kg (285-295); Sodium 130 mmol/L (136-145)
[2022-11-07 11:20] LABS: Anion Gap 19.8 (5-19); Potassium 4.8 mmol/L (3.5-5.1)
--- NOTE | 2022-11-07 11:36 | PM.PN ---
Subjective Subjective: no new c/o Medications: Reviewed: Yes Vitals/I&O/Wt Last Vital Signs Temp 97.1 F L 11/07/22 07:18 Pulse 63 11/07/22 08:55 Resp 18 11/07/22 10:47 BP 121/73 11/07/22 07:18 Pulse Ox 98 11/07/22 08:55 O2 Del Method Nasal Cannula 11/07/22 08:55 O2 Flow Rate 3 11/07/22 08:55 11/06/22 11/07/22 11/07/22 22:59 06:59 14:59 Intake Total 710 / 1530 100 / 1630 240 / 240 Output Total 550 / 550 Balance 710 / 1530 -450 / 1080 240 / 240 Weight last 48 hrs Weight 132.63 kg Weight 131.117 kg Physical Exam Narrative: Awake alert, no acute distress Const: COMMON NORMALS: no acute distress and alert HENMT: OTHER: right IJ tunneled PC Extremity: NARRATIVE EXTREMITY EXAM: redness both lower legs, + edema Neuro: SENSORIUM/ORIENTATION: Yes alert Urinary Catheter Management: Douglas: Cath Placed During This Visit: yes Reason for Continuing Indwelling Catheter: Assist healing open wound Urinary Catheter Date of Insertion: 10/27/22 Urinary Catheter Time of Insertion: 10:55 Data 11/02/22 07:08 11/07/22 10:30 A&P Assessment and plan (1) ESRD (end stage renal disease): Plan 1. ESRD, HD held , has good residual renal fxn 2. Hyponatremia, Hypokalemia 3. Anemia, Hb stable. Iron deficient, add venofer at HD 4. UTI, cellultis on oral antibiotics 5. cardiomyopathy Rec: Continue furosemide 80 mg BID, KCl 20 BID. Given pt still has residual renal fuction and Cr low , holding hD for now with l close lab monitoring and Nephrology f/u in 1-2 weeks If pt discharged to [place] , recommend BMP twice/week and arrange Nephrology follownup. last HD on tuesday Maintain even fluid balance, continue Lasix Attestations Medical Necessity Statement*: per medicine Coding Level of Care Code Acute Code for Chg Fwd Diagnoses ESRD (end stage renal disease) N18.6
--- NOTE | 2022-11-07 12:59 | PM.PN ---
Subjective Subjective: No change in medications today Patient is awaiting placement Off dialysis patient is making good urine Creatinine stable Patient is on 3 L of oxygen No overnight events Wound getting better Vitals/I&O/Wt Last Vital Signs Temp 97.5 F L 11/07/22 12:05 Pulse 62 11/07/22 12:05 Resp 18 11/07/22 12:05 BP 126/74 11/07/22 12:05 Pulse Ox 98 11/07/22 12:05 O2 Del Method Nasal Cannula 11/07/22 12:05 O2 Flow Rate 3 11/07/22 08:55 11/06/22 11/07/22 11/07/22 22:59 06:59 14:59 Intake Total 710 / 1530 100 / 1630 480 / 480 Output Total 550 / 550 Balance 710 / 1530 -450 / 1080 480 / 480 Weight last 48 hrs Weight 132.63 kg Weight 131.117 kg Physical Exam Narrative: Patient laying supine Currently on 3 L GCS 15 Nonfocal neuro exam Wound of extremities getting better Douglas catheter with concentrated urine Abdomen soft however distended Variable S1-S2 Urinary Catheter Management: Douglas: Cath Placed During This Visit: yes Reason for Continuing Indwelling Catheter: Assist healing open wound Urinary Catheter Date of Insertion: 10/27/22 Urinary Catheter Time of Insertion: 10:55 Data 11/02/22 07:08 11/07/22 10:30 A&P Assessment and plan (1) Cardiorenal syndrome: (2) UTI (urinary tract infection): (3) Hyponatremia: (4) Cellulitis: Plan Adequate urine output Creatinine stable No signs of worsening of acidosis Patient is volume overloaded however no ascites Patient is ready to be discharged back to senior living once accepted Off dialysis patient is doing good at this point He will need to be monitored closely outpatient close follow-up Cellulitis of extremity getting better UTI treated Change Douglas catheter Attestations Medical Necessity Statement*: Awaiting placement Diagnoses Cardiorenal syndrome I13.10 UTI (urinary tract infection) N39.0 Hyponatremia E87.1 Cellulitis L03.90
[2022-11-07] MEDS: lidocaine 5% Patch 1 PATCH TOPICAL (15:19)
[2022-11-07] MEDS: tamsulosin 0.4 mg Capsule PO (17:23)
--- NOTE | 2022-11-07 20:38 | PC.NURSE ---
Blood glucose checked via Dexcom, Blood glucose is 227, sliding scale administered per protocol.
[2022-11-07] MEDS: ipratropium-albuterol 3 mL Neb INHALATION (21:32)
[2022-11-08 03:43] VITALS: BP 143/84; PULSE 78; RESP 18; TEMP 36.6; O2SAT 97
[2022-11-08 03:55] LABS: Glucose Point of Care 115 mg/dL (70-110)
[2022-11-08] MEDS: levothyroxine 100 mcg Tablet PO (05:20)
[2022-11-08 06:00] VITALS: PULSE 68
[2022-11-08] MEDS: albumin 25 G/100 ML VIAL IV (06:03)
[2022-11-08 06:24] LABS: Glucose Point of Care 103 mg/dL (70-110)
[2022-11-08 07:28] VITALS: PULSE 65; RESP 16; O2SAT 97
[2022-11-08 07:34] VITALS: BP 115/70; PULSE 59; RESP 19; TEMP 36.4; O2SAT 99
[2022-11-08] MEDS: polyethylene glycol 3350 Pkt 17 gm PO (08:09)
[2022-11-08] MEDS: pantoprazole DR 40 mg Tablet PO (08:09)
[2022-11-08] MEDS: NON-FORMULARY MEDICATION (Pentoxifylline 400 mg tablet extended release) 400 EACH PO (08:09)
[2022-11-08] MEDS: atorvastatin 40 mg Tablet 20 MG PO (08:09)
[2022-11-08] MEDS: insulin glargine 100 units/1 mL 10 UNIT SUBCUT (08:09)
[2022-11-08] MEDS: sennosides-docusate Tablet 1 TAB PO (08:09)
[2022-11-08 08:10] VITALS: RESP 18
[2022-11-08] MEDS: oxyCODONE-APAP 10-325 mg Tablet 1 TAB PO (08:10)
[2022-11-08] MEDS: amoxicillin-clav 875-125 mg Tablet 1 TAB PO (08:10)
[2022-11-08] MEDS: potassium chloride ER 20 mEq Tablet PO (08:10)
[2022-11-08] MEDS: sevelamer 800 mg Tablet PO (08:10)
[2022-11-08] MEDS: FUROsemide 40 mg Tablet 80 MG PO (08:10)
[2022-11-08] MEDS: nystatin cream 30 gm 1 APPLIC TOPICAL (08:11)
--- NOTE | 2022-11-08 09:15 | PM.PN ---
Subjective Subjective: no new c/o Medications: Reviewed: Yes Vitals/I&O/Wt Last Vital Signs Temp 97.5 F L 11/08/22 07:34 Pulse 59 L 11/08/22 07:34 Resp 18 11/08/22 08:10 BP 115/70 11/08/22 07:34 Pulse Ox 99 11/08/22 07:34 O2 Del Method BiPAP 11/08/22 07:34 O2 Flow Rate 3 11/08/22 08:00 11/07/22 11/08/22 11/08/22 22:59 06:59 14:59 Intake Total 460 / 1040 340 / 340 Output Total 150 / 400 200 / 600 Balance 310 / 640 -200 / 440 340 / 340 Weight last 48 hrs Weight 136.191 kg Weight 132.63 kg Physical Exam Narrative: Awake alert, no acute distress Const: COMMON NORMALS: no acute distress and alert HENMT: OTHER: right IJ tunneled PC Extremity: NARRATIVE EXTREMITY EXAM: redness both lower legs, + edema Neuro: SENSORIUM/ORIENTATION: Yes alert Urinary Catheter Management: Douglas: Cath Placed During This Visit: yes, but has since been removed by the nurse Reason for Continuing Indwelling Catheter: Chronic Indwelling Urinary Catheter on Admission Urinary Catheter Date of Insertion: 10/27/22 Urinary Catheter Time of Insertion: 10:55 Date Urinary Catheter Removed: 11/07/22 Time Urinary Catheter Discontinued: 16:50 Data 11/02/22 07:08 11/07/22 10:30 A&P Assessment and plan (1) ESRD (end stage renal disease): Plan 1. ESRD, HD held , has good residual renal fxn 2. Hyponatremia, Hypokalemia 3. Anemia, Hb stable. Iron deficient, add venofer at HD 4. UTI, cellultis on oral antibiotics 5. cardiomyopathy Rec: Continue furosemide 80 mg BID, KCl 20 BID. Given pt still has residual renal fuction and Cr low , holding hD for now with l close lab monitoring and Nephrology f/u in 1-2 weeks If pt discharged to [place] , recommend BMP twice/week and arrange Nephrology follownup. last HD on tuesday Maintain even fluid balance, continue Lasix Attestations Medical Necessity Statement*: per medicine Coding Level of Care Code Acute Code for Chg Fwd Diagnoses ESRD (end stage renal disease) N18.6
--- NOTE | 2022-11-08 10:27 | PM.DCS ---
Discharge Providers Date of Admission: 10/27/22 13:41 Date of Discharge: November 08, 2022 Attending Provider at Admission: Artemio Lujan Attending Provider at Discharge: Katerine Padilla MD Primary Care Provider: Mary Lou Anaya MD Diagnoses at Discharge Discharge Diagnosis (1) ESRD (end stage renal disease): Status: Acute Reason for Visit Reason for Visit: access hospital [facility] Hospital Course Hospital Course 77-year-old male was recently discharged from the hospital after prolonged hospitalization, patient suffered from ischemic cardiomyopathy, non-STEMI, reduced ejection fraction heart failure exacerbation causing cardiorenal syndrome patient ended up requiring tunneled catheter for dialysis Tuesday and Tuesday, he was discharged to a retirement, multiple family meetings were conducted, family was leaning towards opting for palliative care in case he showed further signs of worsening because patient has not been able to walk on his feet because of venous stasis dermatitis, swelling, lethargy and fatigue and p.o. intake was really poor, this time he was admitted to the hospital for worsening of cellulitis of bilateral lower extremities right greater than left he was treated with IV antibiotics throughout hospitalization he did not show any sign of sepsis, no signs of abscess, no signs of DVT or vascular ischemia however he does have chronic moderate peripheral arterial disease, being managed medically, during this visit patient did not show signs of acute limb ischemia, Ascites: For his ascites on previous admission paracentesis 8 L were removed however during this visit not enough ascites to be drained, Urine culture showed E. coli with Aleisha he received fluconazole in the hospital, for E. coli I will give him 5-day regimen of cefpodoxime 200 mg twice daily Douglas catheter will be removed before his discharge, he is being discharged back to his retirement He does carry guarded prognosis Goals of care: DNR/DNI Patient is on Eliquis for his history of A-fib, he does have a pacemaker as well, on previous visit he had 1 episode of bloody bowel movement however his hemoglobin has been stable he will not be a good candidate for EGD or colonoscopy at this point Please note patient has been making more than 1 L of urine every day, he was monitored for 5 days without dialysis in the hospital, his creatinine remained stable around 1.4-1.5, potassium 4.8, he is not showing signs of acidosis, he does have chronic hypervolemia, 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 BMP and monitor for worsening of fluid status he might be able to come off dialysis in next few weeks Physical Exam Narrative: Patient laying supine Currently on 3 L GCS 15 Nonfocal neuro exam Wound of extremities getting better Abdomen soft however distended Variable S1- Urinary Catheter Management: Douglas: Cath Placed During This Visit: yes, but has since been removed by the nurse Reason for Continuing Indwelling Catheter: Chronic Indwelling Urinary Catheter on Admission Urinary Catheter Date of Insertion: 10/27/22 Urinary Catheter Time of Insertion: 10:55 Date Urinary Catheter Removed: 11/07/22 Time Urinary Catheter Discontinued: 16:50 Discharge Data Studies Completed and Pending Completed Studies During Hospitalization Category Date Time Status XR chest 1V portable [id number] Stat Exams 10/27/22 10:20 Completed US abdomen lmt fluid [id number] Routine Ultrasound 11/01/22 14:43 Completed US arterial duplex lower extremity RT [CV arterial Ultrasound 10/27/22 11:38 [place] [id number]] Stat US venous duplex lower extremity bilat [CV venous Ultrasound 10/27/22 10:19 [place] [address]] Stat Pending at discharge Category Date Time Status SARS Covid-2 Antigen Routine Lab 11/08/22 10:23 Uncollected Radiology Impressions Chest X-Ray 10/27/22 10:20 IMPRESSION: 1. No acute cardiopulmonary finding. Cardiac enlargement unchanged. Duplex Scan Lower Extremity Artery 10/27/22 11:38 IMPRESSION: No stenosis or occlusion. The popliteal segment could not be imaged. Abdomen Ultrasound 11/01/22 14:43 IMPRESSION: Minimal ascites. Laboratory Results WBC 9.8 10^3/uL (4.0-10.0) 11/02/22 07:08 RBC 3.91 10^6/uL (4.1-5.3) L 11/02/22 07:08 Hgb 10.0 g/dL (11.7-16.6) L 11/02/22 07:08 Hct 32.4 % (42.0-52.0) L 11/02/22 07:08 MCV 82.9 fl (80-94) 11/02/22 07:08 MCH 25.6 pg (28.0-34.0) L 11/02/22 07:08 MCHC 30.9 g/dL (30.0-36.0) 11/02/22 07:08 RDW 19.4 % (12.1-15.1) H 11/02/22 07:08 Plt Count 247 10^3/cmm (130-400) 11/02/22 07:08 MPV 9.9 fL (7.4-10.4) 11/02/22 07:08 Neut % (Auto) 79.1 % 11/02/22 07:08 Lymph % (Auto) 8.6 % 11/02/22 07:08 [place] % (Auto) 6.8 % 11/02/22 07:08 Eos % (Auto) 3.5 % 11/02/22 07:08 Baso % (Auto) 0.7 % 11/02/22 07:08 Neut # (Auto) 7.77 10^3/uL (1.8-7.7) H 11/02/22 07:08 Lymph # (Auto) 0.9 10^3/uL (0.8-4.8) 11/02/22 07:08 [place] # (Auto) 0.7 10^3/uL (0.2-0.9) 11/02/22 07:08 Eos # (Auto) 0.3 10^3/uL (0.0-0.8) 11/02/22 07:08 Baso # (Auto) 0.1 10^3/uL (0.0-0.1) 11/02/22 07:08 Nucleated RBC % (auto) 0 % 11/02/22 07:08 Nucleated RBCs # 0.0 /100WBC 11/02/22 07:08 Sodium 130 mmol/L (136-145) L 11/07/22 10:30 Potassium 4.8 mmol/L (3.5-5.1) 11/07/22 10:30 Chloride 90 mmol/L (98-107) L 11/07/22 10:30 Carbon Dioxide 25 mmol/L (22-29) 11/07/22 10:30 Anion Gap 19.8 (5-19) H 11/07/22 10:30 BUN 36 mg/dL (8-23) H 11/07/22 10:30 Creatinine 1.5 mg/dL (0.7-1.2) H 11/07/22 10:30 GFR Calculation Not Reportable 11/07/22 10:30 Glucose 144 mg/dL (65-115) H 11/07/22 10:30 POC Glucose 103 mg/dL (70-110) 11/08/22 06:20 Calculated Osmolality 281 mOsm/kg (285-295) L 11/07/22 10:30 Lactic Acid 2.6 mmol/L (0.5-2.2) H 10/27/22 10:05 Lactic Acid (Sepsis) 2.3 mmol/L (0.5-2.2) H 10/27/22 12:37 Calcium 8.5 mg/dL (8.5-10.5) 11/07/22 10:30 Phosphorus 3.2 mg/dL (2.5-4.5) 10/31/22 04:20 Magnesium 1.8 mg/dL (1.7-2.3) 10/28/22 11:48 Iron 28 ug/dL (59-158) L 10/31/22 04:20 TIBC 187 mcg/dl 10/30/22 03:52 % Saturation 11.7 % (20-50) L 10/30/22 03:52 Unsat Iron Binding 165 ug/dL (112-347) 10/30/22 03:52 Ferritin 53 ng/mL (30-400) 10/31/22 04:20 Total Bilirubin 1.9 mg/dL (0.15-1.2) H 11/02/22 07:08 AST 29 U/L (0-40) 11/02/22 07:08 ALT 7 U/L (0-41) 11/02/22 07:08 Alkaline Phosphatase 252 U/L (40-130) H 11/02/22 07:08 Total Protein 5.9 g/dL (6.6-8.7) L 11/02/22 07:08 Albumin 2.7 g/dL (3.5-5.2) L 11/02/22 07:08 Globulin 3.2 g/dL (1.3-4.6) 11/02/22 07:08 Urine Color Dark yellow (Yellow) 10/27/22 10:00 Urine Appearance Cloudy (CLEAR) A 10/27/22 10:00 Urine pH 5 (5-7) 10/27/22 10:00 Ur Specific [place] 1.020 (1.005-1.030) 10/27/22 10:00 Urine Protein 1+ (Negative) H 10/27/22 10:00 Urine Glucose (UA) Norm (Normal) 10/27/22 10:00 Urine Ketones 1+ (Negative) H 10/27/22 10:00 Urine Blood 3+ (Negative) H 10/27/22 10:00 Urine Nitrate Negative (Negative) 10/27/22 10:00 Urine Bilirubin 1+ (Negative) H 10/27/22 10:00 Urine Urobilinogen 4 mg/dL (Negative) H 10/27/22 10:00 Ur Leukocyte Esterase 2+ (Negative) H 10/27/22 10:00 Urine RBC 10-15 /hpf (0-2) H 10/27/22 10:00 Urine WBC 40-55 /hpf (0-5) H 10/27/22 10:00 Ur Squamous Epith Cells 0-4 /hpf (0-5) H 10/27/22 10:00 Amorphous Sediment Not Reportable 10/27/22 10:00 Urine Bacteria 1+ /hpf (NONE) H 10/27/22 10:00 Urine Mucus 2+ /hpf 10/27/22 10:00 Urine Yeast 3+ /hpf H 10/27/22 10:00 Vancomycin Trough 8.8 ug/mL (10-15) L 11/06/22 03:45 Random Vancomycin 11.7 ug/mL (20.0-40.0) L 11/01/22 13:40 Coronavirus 229E (PCR) Cancelled 11/02/22 06:40 Hep Bs Antigen Non-reactive (Nonreactive) 10/27/22 09:58 Hep Bs Antibody 3.5 (11.5-1000) L 10/27/22 09:58 Hep B Core Total Ab Non-reactive (Nonreactive) 10/27/22 09:58 SARS-CoV-2 (PCR) Cancelled 11/02/22 06:40 SARS-CoV-2 Ag (Rapid) negative (Negative) 11/02/22 13:54 Vitals Last Vital Signs Temp 97.5 F L 11/08/22 07:34 Pulse 59 L 11/08/22 07:34 Resp 18 11/08/22 08:10 BP 115/70 11/08/22 07:34 Pulse Ox 99 11/08/22 07:34 O2 Del Method BiPAP 11/08/22 07:34 O2 Flow Rate 3 11/08/22 08:00 Discharge Plan Discharge Patient Disposition: Xfer SNF Condition: Stable Prescriptions: New cefpodoxime 200 mg tablet 200 mg PO BID Qty: 10 0RF Rx Instructions: must administer with a meal/food Continued pentoxifylline 400 mg tablet extended release 400 mg PO TID omeprazole 20 mg capsule,delayed release(DR/EC) 40 mg PO BID Eliquis 5 mg tablet 5 mg PO BID Hold Instructions: Resume on 10/14/22. (DME) Dexcom G6 Sensor Device See Rx Instructions .Route Qty: 9 3RF Rx Instructions: change every 10 days (DME) Dexcom G6 Transmitter Device See Rx Instructions .Route Qty: 1 3RF Rx Instructions: change every 3 months (DME) diabetic shoes with 3 custom inserts See Rx Instructions .Route .MEDSUPPLY Qty: 1 0RF Rx Instructions: As directed (DME) Juzo compression wraps to right and left See Rx Instructions .Route .MEDSUPPLY Qty: 1 0RF Rx Instructions: As directed (DME) Dexcom G6 Ice Seller Misc See Rx Instructions .Route Qty: 1 0RF Rx Instructions: Check BS 4-6 times a day. (DME) Juzo Lymphedema Wraps Bilaterally 2 pairs See Rx Instructions .Route .MEDSUPPLY Qty: 1 0RF Rx Instructions: As directed J P & O capsaicin 0.075 % Cream 1 applic TOPICAL TID PRN (Reason: Pain) Rx Instructions: do not wash area for at least 30 min after application tamsulosin [Flomax] 0.4 mg Capsule 0.4 mg PO QPM lidocaine 5 % Adhesive Patch,Medicated 1 patch TOPICAL DAILY PRN (Reason: Pain) Rx Instructions: leave on most painful area for up to 12 hrs then off for 12 hrs carbamide peroxide 6.5 % Drops See Rx Instructions .ROUTE .COMPLEX Rx Instructions: 2 DROPS BOTH EARS EVERY 4 WEEKS NEEDED FOR WAX BLOCKAGE clotrimazole 1 % Cream 1 applic TOPICAL DAILY PRN (Reason: SCALES ON FEET) guaifenesin 400 mg Tablet 400 mg PO TID lactulose 10 gram/15 mL Solution 15 ml PO DAILY PRN (Reason: Constipation) Levemir FlexTouch U-100 Insuln 100 unit/mL (3 mL) insulin pen 10 unit SUBCUT QAM Qty: 15 0RF sevelamer carbonate [Renvela] 800 mg tablet 800 mg PO TID Qty: 90 0RF Rx Instructions: must administer with a meal/food levothyroxine 100 mcg Tablet 100 mcg PO QAM insulin aspart U-100 [Novolog FlexPen U-100 Insulin] 100 unit/mL (3 mL) Insulin Pen See Rx Instructions .ROUTE .COMPLEX Rx Instructions: mild sliding scale four times a day and at bedtime as needed for blood sugar atorvastatin 40 mg Tablet 20 mg PO BEDTIME bumetanide 2 mg tablet 2 mg PO DAILY omeprazole 20 mg Capsule,Delayed Release(Dr/Ec) 20 mg PO BID vitamin E 670 mg (1,000 unit) Capsule 670 mg PO DAILY carvedilol 3.125 mg Tablet 3.125 mg PO BID Rx Instructions: must administer with a meal/food oxycodone-acetaminophen 10-325 mg Tablet 1 tab PO TID PRN (Reason: Pain) sodium bicarbonate 650 mg Tablet 650 mg PO BID acarbose 100 mg Tablet 100 mg PO TID Rx Instructions: Give before meals Dulcolax (bisacodyl) 10 mg Suppository 10 mg [place] DAILY PRN (Reason: Constipation) Vitamin D3 10 mcg (400 unit) Tablet 20 mcg PO DAILY omega-3 fatty acids Capsule 1,000 mg PO BID zinc 50 mg Capsule 50 mg PO DAILY Cinnamon Bark 500 mg capsule 500 mg PO BID PRN (Reason: Diarrhea) Discharge Orders: Discharge Order (Routine); Ordered 11/08/22 Ordered By: Katerine Padilla Referrals: Mary Lou Anaya MD [Primary Care Provider] - 11/15/22 9:30 am Patient Instructions: Dialysis Diet (DC), Hemodialysis (DC) Discharge Attestations Time Spent in Discharge Care*: greater than 30 min Status at Discharge: Cognitive status at discharge: cognitively intact, Behavioral status at discharge: cooperative, Quality Metrics Clinical Quality Measures [ No reported AMI, CVA or VTE this stay] Coding Level of Care Code Acute Code for Chg Fwd Diagnoses ESRD (end stage renal disease) N18.6
[2022-11-08 11:02] LABS: Glucose Point of Care 183 mg/dL (70-110)
--- NOTE | 2022-11-08 11:11 | PC.NURSE ---
This nurse gave report to Talia at [facility] via phone at 11:10.
[2022-11-08] MEDS: insulin lispro 100 unit/1 mL SUBCUT (11:17)
[2022-11-08 11:27] LABS: SARS Covid-2 Antigen negative (Negative)
[2022-11-08 11:40] VITALS: BP 111/72; PULSE 67; RESP 19; TEMP 36.3; O2SAT 96
== END 2022-11-08 14:45 | disposition skilled nursing facility (03) | DRG 602 ==
LOC: ER 11:22 → MEDSURG 14:47
PROVIDERS: Hospitalist; Internal Medicine; Admitting Provider Internal Medicine; Emergency Provider Family Medicine; PCP Family Medicine; Visit Provider Internal Medicine
DX: L03.115 Cellulitis of right lower limb (principal); I21.4 Non-ST elevation (NSTEMI) myocardial infarction; I50.23 Acute on chronic systolic (congestive) heart failure; N18.6 End stage renal disease; I13.2 Hypertensive heart and chronic kidney disease with heart failure and with stage 5 chronic kidney disease, or end stage renal disease; N39.0 Urinary tract infection, site not specified; B37.49 Other urogenital candidiasis; I48.20 Chronic atrial fibrillation, unspecified; E87.1 Hypo-osmolality and hyponatremia; R18.8 Other ascites; E11.22 Type 2 diabetes mellitus with diabetic chronic kidney disease; Z99.2 Dependence on renal dialysis; B96.20 Unspecified Escherichia coli [E. coli] as the cause of diseases classified elsewhere; I25.5 Ischemic cardiomyopathy; E11.65 Type 2 diabetes mellitus with hyperglycemia; E11.51 Type 2 diabetes mellitus with diabetic peripheral angiopathy without gangrene; E11.42 Type 2 diabetes mellitus with diabetic polyneuropathy; Z66 Do not resuscitate; Z79.01 Long term (current) use of anticoagulants; Z95.0 Presence of cardiac pacemaker; Z75.1 Person awaiting admission to adequate facility elsewhere; Z96.0 Presence of urogenital implants; D50.9 Iron deficiency anemia, unspecified; D63.1 Anemia in chronic kidney disease; K59.00 Constipation, unspecified; I95.9 Hypotension, unspecified; E87.5 Hyperkalemia; G47.33 Obstructive sleep apnea (adult) (pediatric); E78.5 Hyperlipidemia, unspecified; Z85.828 Personal history of other malignant neoplasm of skin; K57.90 Diverticulosis of intestine, part unspecified, without perforation or abscess without bleeding; K74.60 Unspecified cirrhosis of liver; Z79.891 Long term (current) use of opiate analgesic; Z79.4 Long term (current) use of insulin
CPT/HCPCS: 36415; 36416; 51702; 71045; 76705; 80048; 80053; 80202; 81001; 82728; 82962; 83540; 83550; 83605; 83735; 84100; 85025; 86705; 86706; 87040; 87077; 87086; 87106; 87186; 87340; 87426; 90935; 93926; 93970; 94640; 94664; 96365; 96367; 96372; 96375; 99285; J1644; J1815; J1940; J2185; J2543; J3370; J3490; J7030; J7050; J7613; P9047; Q3014; Q4081